=== PATIENT | male | born 1950 | race Caucasian/White ===

== ENCOUNTER → 2020-11-19 13:03 | Outpatient (BNVA) | payer MEDICARE, SELFPAY | PROVIDERS: PCP Internal Medicine; Visit Provider Anesthesiology | DX: G89.4 Chronic pain syndrome (principal); M51.36 Other intervertebral disc degeneration, lumbar region; M50.30 Other cervical disc degeneration, unspecified cervical region; M47.16 Other spondylosis with myelopathy, lumbar region | CPT/HCPCS: 99202 ==

== ENCOUNTER 2020-12-29 15:07 | Outpatient (REF) | payer MEDICARE, SELFPAY ==
--- NOTE | ~2020-12-29 | MR_ITS ---
EXAMINATION: MR LUMBAR SPINE WITHOUT CONTRAST CLINICAL INFORMATION: Spondylosis with myelopathy. COMPARISON: No relevant prior imaging. TECHNIQUE: MRI of the lumbar spine was obtained using routine sequences without contrast. FINDINGS: There is grade 1 anterolisthesis of L4 on L5 related to advanced facet degenerative changes at this level. Alignment is otherwise normal. Vertebral heights are preserved. There are minimal type I degenerative endplate changes at L1-L2 and to a lesser extent at the upper anterior corner of the L1 vertebral body. There is loss of intervertebral disc height and T2 signal intensity at multiple levels related to disc degeneration. The tip of the conus medullaris is located at L1. No mass effect on the conus. Visualized distal cord signal intensity is normal. At T12-L1 there is a shallow left central protrusion superimposed upon a bulging disc. Mild canal stenosis. No mass effect on the traversing or foraminal nerve roots. At L1-L2 there is a diffusely bulging disc. Mild canal stenosis. No mass effect on the traversing or foraminal nerve roots. At L2-L3 there is a slightly bulging disc. Bilateral facet degenerative change. No canal stenosis. No mass effect on the traversing or foraminal nerve roots. At L3-L4 there is a diffusely bulging disc. Bilateral facet degenerative change. No canal stenosis. No mass effect the traversing or foraminal nerve roots. At L4-L5 there is a central protrusion superimposed upon a pseudodisc bulge. Advanced bilateral facet degenerative change. No canal stenosis. There is asymmetric narrowing of the left subarticular zone with abutment of left traversing L5 nerve roots. No foraminal nerve root compression. At L5-S1 there is a slightly bulging disc. Advanced facet degenerative change. No canal stenosis. No mass effect on the traversing or foraminal nerve roots. Limited visualization the retroperitoneal anatomy reveals no abnormal finding. Psoas and paraspinal muscle groups are symmetric. MR/MR lumbar spine wo con IMPRESSION: There is multilevel degenerative spondylosis of lumbar spine with grade 1 anterolisthesis of L4 on L5 related to advanced facet degenerative changes at this level. There is mild canal stenosis at T12-L1 and L1-L2. Asymmetric narrowing of the left subarticular zone at L4-L5 causes abutment of the left traversing L5 nerve roots. Otherwise no substantial mass effect on the traversing or foraminal nerve roots elsewhere within the lumbar spine.
== END 2020-12-29 15:08 | disposition home or self-care (01) ==
LOC: HO.MRI 15:07
PROVIDERS: Visit Provider Anesthesiology
DX: M47.16 Other spondylosis with myelopathy, lumbar region (principal)
CPT/HCPCS: 72148

== ENCOUNTER → 2021-01-12 14:44 | Outpatient (BNVA) | payer MEDICARE, SELFPAY | PROVIDERS: Visit Provider Anesthesiology | DX: G89.4 Chronic pain syndrome (principal); M51.36 Other intervertebral disc degeneration, lumbar region; M50.30 Other cervical disc degeneration, unspecified cervical region; M48.16 Ankylosing hyperostosis [Forestier], lumbar region; Z79.899 Other long term (current) drug therapy | CPT/HCPCS: 99212 ==

== ENCOUNTER 2021-04-21 06:51 | Outpatient (REF) | payer MEDICARE, SELFPAY ==
--- NOTE | ~2021-04-21 | FL_ITS ---
EXAMINATION: XR FLUOROSCOPY WITH IMAGES CLINICAL INFORMATION: M47.16 - Other spondylosis with myelopathy, lumbar region COMPARISON: None. TECHNIQUE: Fluoroscopy performed by Dr. Rodrick Mckeon. Fluoroscopy time: 0.5 minutes DAP: 7.8 Gycm2 Images: 2 FINDINGS: There is interlaminar spinal needle approximately level L2-L3. There are multilevel degenerative disc changes with disc narrowing and vertebral spurring. FL/FL guidance in treatment room IMPRESSION: Fluoroscopy for pain management procedure.
== END 2021-04-21 06:52 | disposition home or self-care (01) ==
LOC: HO.RADIR 06:51
PROVIDERS: Visit Provider Anesthesiology
DX: G89.4 Chronic pain syndrome (principal); M51.36 Other intervertebral disc degeneration, lumbar region; M50.30 Other cervical disc degeneration, unspecified cervical region; M47.16 Other spondylosis with myelopathy, lumbar region
CPT/HCPCS: 62323; J1170; Q9967

== ENCOUNTER → 2021-04-29 09:37 | Outpatient (BNVA) | payer MEDICARE, SELFPAY | PROVIDERS: PCP Surgery Surgical Oncology; Visit Provider Anesthesiology | DX: M51.36 Other intervertebral disc degeneration, lumbar region (principal); M50.30 Other cervical disc degeneration, unspecified cervical region; M47.16 Other spondylosis with myelopathy, lumbar region; G89.4 Chronic pain syndrome | CPT/HCPCS: 99212 ==

== ENCOUNTER → 2021-05-18 11:24 | Outpatient (BNVA) | payer MEDICARE, SELFPAY | PROVIDERS: Visit Provider Anesthesiology | DX: M51.36 Other intervertebral disc degeneration, lumbar region (principal); M50.30 Other cervical disc degeneration, unspecified cervical region; M47.16 Other spondylosis with myelopathy, lumbar region; G89.4 Chronic pain syndrome | CPT/HCPCS: Q3014 ==

== ENCOUNTER 2021-07-01 14:59 | Outpatient (REF) | payer MEDICARE, SELFPAY ==
--- NOTE | ~2021-07-01 | XR_ITS ---
EXAMINATION: XR THORACIC SPINE CLINICAL INFORMATION: Spondylolisthesis. COMPARISON: None TECHNIQUE: 3 views of the thoracic spine were obtained. FINDINGS: Spinal stimulator wiring terminating at the region of T8. Vertebral body height and alignment maintained. Diffuse disc space narrowing with endplate osteophyte formation. There is anterior cervical fusion hardware at C5-C6. The visualized lungs are clear. The paravertebral soft tissues are unremarkable. XR/XR thoracic spine 3V IMPRESSION: Mild to moderate degenerative change throughout the thoracic spine with endplate osteophyte formation. Alignment maintained.
== END 2021-07-01 15:00 | disposition home or self-care (01) ==
LOC: HO.XRAY 14:59
PROVIDERS: PCP Surgery Surgical Oncology; Visit Provider Anesthesiology
DX: M43.10 Spondylolisthesis, site unspecified (principal); G89.4 Chronic pain syndrome; M51.36 Other intervertebral disc degeneration, lumbar region; M50.30 Other cervical disc degeneration, unspecified cervical region; M47.16 Other spondylosis with myelopathy, lumbar region; Z79.891 Long term (current) use of opiate analgesic
CPT/HCPCS: 72072; 99212

== ENCOUNTER 2021-07-16 12:04 | Day surgery (SDC) | payer MEDICARE, SELFPAY ==
--- NOTE | 2021-07-15 10:01 | HO.ANESPROP2 ---
Documented by User: Samantha Goldberg NP 07/15/21 10:02 HPI - Anesthesia Eval Consult details Narrative: 70yo M for Intrathecal Drug Delivery Implant PMFSH Active Problems Active Problems: All Active Problems (Updated 07/09/21 @ 12:54 by Ynes Guy RN) Retrolisthesis of vertebrae (Acute) Spondylosis, lumbar, with myelopathy (Acute) Degeneration, intervertebral disc, cervical (Acute) Disc degeneration, lumbar (Acute) Chronic pain syndrome (Acute) Past Medical History Medical History (Updated 07/09/21 @ 12:54 by Ynes Guy, [email or web address]) Chronic pain syndrome Degeneration, intervertebral disc, cervical Disc degeneration, lumbar GERD (gastroesophageal reflux disease) Hypercholesteremia Hypothyroid Obesity PTSD (post-traumatic stress disorder) Retrolisthesis of vertebrae Spondylosis, lumbar, with myelopathy Surgical History Surgical History (Updated 07/09/21 @ 12:54 by Ynes Guy RN) History of total left knee replacement S/P insertion of spinal cord stimulator Social History Social History Patient Tobacco Use Status: Never used Tobacco Use of substances other than those prescribed or required for medical reasons: Yes Have you been hit, kicked, punched, or otherwise hurt by someone within the past year? If so, by whom?: No Are you DNR?: No Advance Directives: No Advance Directives Information Provided: Yes Recently lost weight without trying: No Nutrition Risks: No Nutritional Risk Meds Allergies Allergy/AdvReac Type Severity Reaction Status Date / Time No Known Allergies Allergy Verified 07/09/21 13:05 Home Medications Medication Instructions Recorded Confirmed Last Taken Type levothyroxine 07/09/21 Unknown History omeprazole 07/09/21 Unknown History paroxetine HCl 07/09/21 Unknown History simvastatin 07/09/21 Unknown History zolpidem 07/09/21 07/09/21 Unknown History Exam Exam Date and Time: July 15, 2021 1001 Assessment and Plan Assessment Anesthesia Assessment: Chart Reviewed Documented by User: Tigre Lara 07/16/21 12:49 HPI - Anesthesia Eval Consult details Narrative: 70yo M for Intrathecal Drug Delivery Implant s/p Spinal cord stimulator in 2018 [facility] Past Medical History Medical History (Updated 07/09/21 @ 12:54 by Ynes Guy, RN) Chronic pain syndrome Degeneration, intervertebral disc, cervical Disc degeneration, lumbar GERD (gastroesophageal reflux disease) Hypercholesteremia Hypothyroid Obesity PTSD (post-traumatic stress disorder) Retrolisthesis of vertebrae Spondylosis, lumbar, with myelopathy Functional capacity: uses cane/walker Family History Family history of problems with anesthesia: No Surgical History Surgical History (Updated 07/09/21 @ 12:54 by Ynes Guy RN) History of total left knee replacement S/P insertion of spinal cord stimulator History of Problems with Anesthesia: Yes (Ponv ) Social History Social History Patient Tobacco Use Status: Never used Tobacco Use of substances other than those prescribed or required for medical reasons: Yes Have you been hit, kicked, punched, or otherwise hurt by someone within the past year? If so, by whom?: No Are you DNR?: No Advance Directives: No Advance Directives Information Provided: Yes Recently lost weight without trying: No Nutrition Risks: No Nutritional Risk Meds Allergies Allergy/AdvReac Type Severity Reaction Status Date / Time No Known Allergies Allergy Verified 07/09/21 13:05 Home Medications Medication Instructions Recorded Confirmed Last Taken Type levothyroxine 07/09/21 Unknown History omeprazole 07/09/21 Unknown History paroxetine HCl 07/09/21 Unknown History simvastatin 07/09/21 Unknown History zolpidem 07/09/21 07/09/21 Unknown History Exam Airway Mallampati Class: III TM Dist: >3cm Neck ROM: Limited Denture: Upper Loose/Missing/Broken Teeth: Yes Assessment and Plan Final Anesthetic Review Family History of Problems with Anesthesia: No History of Problems with Anesthesia: Yes (Ponv ) NPO: Yes ASA Class: II Final Preanesthetic Review: Anes Risks/Benef Reviewed Patient Risk: Intermediate Procedure Risk: Intermediate Anesthetic Plan Anesthetic Plan: GA Disposition: Standard PACU
--- NOTE | ~2021-07-16 | FL_ITS ---
EXAMINATION: XR FLUOROSCOPY WITH IMAGES CLINICAL INFORMATION: intrathecal drug delivery implant COMPARISON: Fluoroscopic spot views 04/21/2021, MRI lumbar spine 12/29/2020 TECHNIQUE: Fluoroscopy performed by Dr. Rodrick Mckeon. Fluoroscopy time: 0.5 minutes DAP: 7.92 mGycm2 Images: 7 FINDINGS: There is puncture needle seen overlying L2 lumbar interlaminar space. Electrodes seen with tip in region of lower thoracic spine. There are fine grouped wire-like artifacts overlying the lower lumbar spine on final images which may represent gauze pads outside of the patient. FL/FL guidance in OR IMPRESSION: Fluoroscopy for pain management procedure.
[2021-07-16 12:24] VITALS: BP 118/74; PULSE 74; RESP 18; TEMP 36.8; O2SAT 96
--- NOTE | 2021-07-16 12:59 | MHC.SHP ---
Pre-Procedural Eval Section A Date of Service: 07/16/21 The patient is an INPATIENT: No Changes since office visit: Yes Patient answered all questions The History & Physical has been completed within 30 days and I have reviewed it.: No Section B Chief Complaint: Post laminectomy syndrome Details of Present Illness: as above Relevant Family History (Specify if Yes): No Relevant Social History: None Present Medications: see Short Stay Collaborative assessment Medical History: No relevant PMH History of Previous Operations: No relevant previous surgery Allergies: Allergies Allergy/AdvReac Type Severity Reaction Status Date / Time No Known Allergies Allergy Verified 07/09/21 13:05 Review of Systems Sugical H&P ROS: Negative: Cardiovascular, Respiratory, Neurological, Psychiatric, Hem-Onc, Allergic/Immunologic, Gastrointestinal, Genitourinary, Musculoskeletal, Integumentary, Endocrine and Eyes/Ears/Nose/Throat and Yes, Specify: Constitution (obesity) Exam Surgical H&P Exam: Normal: HEENT, Normal: Heart, Normal: Lungs, Normal: Extremities, Normal: Abdomen, Normal: Skin and Normal: Neurological Plan Diagnosis/Plan: Unchanged I have reviewed the history and physical and performed a pertinent physical examination on my patient. No changes have occurred unless specified.
[2021-07-16] MEDS: Lactated Ringers 1,000 ML 100 ML IVCONT (13:13)
--- NOTE | 2021-07-16 16:13 | PM.OP ---
Brief Operative Note Date of Service: 07/16/21 Pre-op diagnosis: postlaminectomy syndrome Post-op diagnosis: same Procedure: Implantation of the ITDD [employer] Implants: [employer] pain pump Synchromed II and IT catheter ascenda. Surgeon: Rodrick Mckeon MD Anesthesia: GETA Was an Windows And Doors Installer used for this Procedure?: No Estimated blood loss (mL): 25 Pathology: none sent Condition: stable Disposition: PACU
--- NOTE | 2021-07-16 16:15 | P.OP_ITS ---
Operative Note Operative Note Date of Service: 07/16/21 Narrative: After obtaining informed consent and explaining to the patient risks, benefits and alternatives to treat his pain, the patient was brought up to the operating room where he was positioned supine on the stretcher.? [employer] monitors were applied and general anesthesia was induced with endotracheal intubation.? After that the patient was transferred to the operating table in the prone positioon.? All pressure points protected.? The patient received antibiotic cefazolin 3 g intravenously 30 minutes before incision. Time-out was performed delineating correct site and side of the procedure, name and date of of the patient, risk of fire, need for antibiotic prophylaxis risk of DVT and need for DVT prophylaxis. ? After that the patient entire back? and left upper buttock were prepped with Chloraprep and draped with full body drape including ioban film. Sterilely drape C-arm was brought over the OR field and square pictures of the L1, L2, L3 vertebrae were demonstrated on the screen. the entrance point? for the catheter was chosen as the L1-[id number]. In the strict midline fashion 8.5 cm vertical skin incision was made with #10 scalpel. The incision was widened with the Philipptl aner retractor and deepened with electrocautery. Thorough hemostasis was obtained using electrocautery.0 The prevertebral fascia was freed from overlaying tissues. After that 100 mm introducer spinal 16 g needle was inserted under x-ray guidance in the projection of the right L3 pedicle on AP view. The needle advanced under the x- ray guidance with intemittent A-P? and lateral pictures toward the spinal canal. When on the lateral view the needle entered the spinal canal the stylet was removed and the clear flow of the CSF was obtain through the needle hub. Intrathecal Ascenda catheter was inserted through the needle and advanced under the x-ray guidance toward the T7 mid body vertebral body projection. The stylet was removed from the catheter and the flow of CSF fluid straw colored and clear was observed coming from the catheter.? Purse-string suture was applied surrounding? the a needle and it was tied.? After that the needle was withdrawn with care taken to keep the catheter in place.? Anchoring device was dislodged on the catheter and advanced until it met prevertebral fascia.? It was engaged on the body of the catheter.? Two anchoring Tycron sutures were used to suture left wing of the anchor to prevertebral fascia and 1 anchoring suture was used to stitch in the right wing of anchoring device to prevertebral fascia. ?After that the thorough irrigation of the wound was performed and wound was packed with vancomycin soaked 4 x 4. Attention then was concentrated on the patient's left upper buttock.Sterilely draped C-arm was brought over the operative field again and position of the patient's ? Left iliac crestwas demonstrated on the screen.? 2 cm below the projection of the? left iliac crest? to the skin of the local anesthetic lidocaine plus bupivacaine 1-1 was injected in the linear horizontal fashion.? After that 9 cm incision was performed in patient's? left upper buttock alongside the injected line. ? Thorough hemostasis was obtained using cautery device.? After that the wound was widened and made 2 cm deep .? The wound was extended medially and laterally as well as caudally and cranially to form the space to accommodate the body of the pump.? Thorough hemostasis was performed.? The wound was irrigated with vancomycin containing normal saline and then tunneling device was used to connect both wounds and dislodged the intrathecal catheter into the side wound.? The catheter was trimmed appropriately after that and sutureless connection device was mounted on the catheter.? After that sutureless connection device was connected to the pump.? Aspiration of the side port of the pump revealed clear flow of CSF.? Two anchoring 1-0 Tycron sutures were applied in most SUPERIOR MEDIAL AND SUPERIOR LATERAL CORNERS OF THE WOUND as well as most inferior medial corner of the wound.? After that the sutures were connected to the brackets on the body of the pump, intrathecal catheter was gathered behind the body of the pump and pump was dislodged into the wound.? After that the anchoring sutures were tied.? After that noncoring needle was used again to reach side port of the pump in clear flow of CSF 0.5 mL was demonstrated in the syringe connected to the noncoring needle. ? Thorough irrigation was performed again in both wounds.? Thorough hemostasis was verified.? 0 polisorb sutures were used to close both wounds, 2-0 suture of the same nature were used to approximate the skin.? Aviva were applied to the skin line and Bacitracin ointment was applied to the staple lines.? Sterile dressing with sterile 4x4s was performed, abdominal binder was applied.? Upon completion of the procedure patient was awaken extubated and taken outside of the operating room to recovery room where HE recovered uneventfully.? HE went home without immediate complications.
[2021-07-16 16:18] VITALS: BP 135/66; PULSE 84; RESP 18; TEMP 36.1; O2SAT 99
[2021-07-16 16:23] VITALS: BP 129/63; PULSE 88; RESP 18; O2SAT 100
[2021-07-16 16:28] VITALS: BP 133/70; PULSE 85; RESP 18; O2SAT 96
[2021-07-16 16:33] VITALS: BP 132/70; PULSE 84; RESP 20; O2SAT 99
[2021-07-16 16:45] VITALS: BP 131/72; PULSE 79; RESP 20; O2SAT 99
== END 2021-07-16 17:19 | disposition home or self-care (01) ==
PROVIDERS: PCP Surgery Surgical Oncology; Visit Provider Anesthesiology
PROC: (CPT 62362; principal; 2021-07-16 13:00)
DX: M43.10 Spondylolisthesis, site unspecified (principal); G89.4 Chronic pain syndrome; M96.1 Postlaminectomy syndrome, not elsewhere classified; M51.36 Other intervertebral disc degeneration, lumbar region; M50.30 Other cervical disc degeneration, unspecified cervical region; M47.16 Other spondylosis with myelopathy, lumbar region
CPT/HCPCS: 62362; 62350; C1755; C1772; J0690; J1100; J2250; J2405; J3010; J3370

== ENCOUNTER → 2021-07-23 10:16 | Outpatient (BNVA) | payer MEDICARE, SELFPAY | PROVIDERS: PCP Surgery Surgical Oncology; Visit Provider Anesthesiology | DX: M43.10 Spondylolisthesis, site unspecified (principal); M51.36 Other intervertebral disc degeneration, lumbar region; M50.30 Other cervical disc degeneration, unspecified cervical region; M47.16 Other spondylosis with myelopathy, lumbar region; G89.4 Chronic pain syndrome; Z96.82 Presence of neurostimulator | CPT/HCPCS: 99212 ==

== ENCOUNTER → 2021-07-29 14:04 | Outpatient (BNVA) | payer MEDICARE, SELFPAY | PROVIDERS: PCP Surgery Surgical Oncology; Visit Provider Anesthesiology | DX: M43.10 Spondylolisthesis, site unspecified (principal); M51.36 Other intervertebral disc degeneration, lumbar region; M50.30 Other cervical disc degeneration, unspecified cervical region; M47.16 Other spondylosis with myelopathy, lumbar region; G89.4 Chronic pain syndrome | CPT/HCPCS: 99212 ==

== ENCOUNTER → 2021-08-05 15:06 | Outpatient (BNVA) | payer MEDICARE, SELFPAY | PROVIDERS: PCP Surgery Surgical Oncology; Visit Provider Anesthesiology | DX: Z48.89 Encounter for other specified surgical aftercare (principal); Z48.02 Encounter for removal of sutures | CPT/HCPCS: 99212 ==

== ENCOUNTER 2021-08-19 13:00 | Outpatient (REF) | payer OTHER, MEDICARE, SELFPAY ==
--- NOTE | ~2021-08-19 | MR_ITS ---
CERVICAL AND THORACIC SPINE MRI WITHOUT IV CONTRAST CLINICAL INFORMATION: History of surgery with cervicothoracic pain. COMPARISON: Thoracic spine radiographs 07/01/2021. TECHNIQUE: Multiplanar multisequence MR imaging of the cervical and thoracic spine obtained without IV contrast. FINDINGS: CERVICAL SPINE MRI: There are postoperative changes following ACDF at C5-C6. There is anterior subluxation of C3 on C4 and C4 on C5 as well as C7 on T1. Mild disc volume loss at C6-C7 and C7-T1. There is no bone marrow edema. There are no acute fractures within the cervical spine. The craniocervical junction is unremarkable. Cervical cord morphology is normal. Partially imaged posterior fossa is unremarkable. The cervical arterial flow voids are maintained. No significant extraspinal soft tissue findings. No cord signal changes. C2-C3: Disc contour is normal. Uncovertebral joint spurring and hypertrophic facet arthropathy result in mild left-sided foraminal encroachment. C3-C4: Mild anterior subluxation. Disc osteophyte without central canal stenosis. Uncovertebral joint hypertrophy and hypertrophic facet arthropathy result in mild to moderate bilateral foraminal stenosis. C4-C5: Disc osteophyte mildly narrows the central canal. Uncovertebral joint hypertrophy and hypertrophic facet arthropathy result in severe right-sided foraminal stenosis. C5-C6: ACDF changes. No central canal stenosis. Advanced left-sided facet arthropathy results in moderate left-sided foraminal encroachment. C6-C7: A shallow central disc protrusion and ligamentum flavum thickening mildly narrow the central canal. Advanced uncovertebral joint hypertrophy and hypertrophic facet arthropathy result in moderate bilateral foraminal stenosis. C7-T1: Anterior subluxation. No central canal stenosis. Advanced bilateral facet arthropathy resulting in moderate to severe bilateral foraminal stenosis. THORACIC SPINE: Vertebral body heights are maintained. Mild to moderate disc volume loss at the mid thoracic levels. Modic type I endplate signal changes at L1-L2 and to a lesser extent T10-T11. Attic endplate Schmorl's nodes within the mid thoracic spine. There is significant marrow edema associated with the right sixth costovertebral joint, most likely degenerative/inflammatory. There is any clinical concern for trauma to this area, a CT can be obtained. Multilevel endplate osteophytes. Nondiagnostic assessment for thoracic cord signal abnormality given the degree of significant artifact obscuring the thoracic spine, particularly at the level of the spinal stimulator device. Surgical hardware not diagnostically assessed on MRI. No significant extraspinal soft tissue findings. Small paracentral disc protrusions throughout the thoracic spine highly narrow the central canal. No severe central canal stenosis within the thoracic spine. Varying degrees of mild to moderate foraminal encroachment throughout the thoracic spine. Conus terminates at the T12-L1 level. THORACIC SPINE MRI: Midthoracic kyphosis. 12 rib-bearing thoracic type vertebral bodies. Spinal stimulator device extends through the T9-T10 interlaminar space with the electrode situated along the dorsal thecal sac at T8-T10. MR/MR thoracic spine wo con IMPRESSION: - Within the cervical spine there are postoperative changes following ACDF at C5-C6. Spondylitic changes throughout the cervical spine resulting in varying degrees of moderate to severe foraminal stenosis bilaterally. There is no severe central canal stenosis within the cervical spine. - Spinal stimulator device extends through the T9-T10 interlaminar space with the electrode situated along the dorsal thecal sac at T8-T10. - There is significant marrow edema associated with the right sixth costovertebral joint, most likely degenerative/inflammatory. There is any clinical concern for trauma to this area, a CT can be obtained. - Multilevel thoracic spondylosis. Nondiagnostic assessment for thoracic cord signal abnormality secondary to artifact on this study. There is mild to moderate thoracic spondylosis and there is a midthoracic kyphosis. No severe central canal stenosis within the thoracic spine. No thoracic cord compression. Assessment of the thoracic cord at the level of the spinal stimulator electrode is nondiagnostic secondary to artifact from electrode.
== END 2021-08-19 13:01 | disposition home or self-care (01) ==
LOC: HO.MRI 13:00
PROVIDERS: Visit Provider Nurse Practitioner Family
DX: M43.10 Spondylolisthesis, site unspecified (principal); G89.4 Chronic pain syndrome; M51.36 Other intervertebral disc degeneration, lumbar region; M50.30 Other cervical disc degeneration, unspecified cervical region; M47.16 Other spondylosis with myelopathy, lumbar region
CPT/HCPCS: 72141; 72146; 99212

== ENCOUNTER → 2021-09-09 15:39 | Outpatient (BNVA) | payer MEDICARE, SELFPAY | PROVIDERS: PCP Surgery Surgical Oncology; Visit Provider Anesthesiology | DX: G89.4 Chronic pain syndrome (principal); M43.10 Spondylolisthesis, site unspecified; M51.36 Other intervertebral disc degeneration, lumbar region; M50.30 Other cervical disc degeneration, unspecified cervical region; M47.16 Other spondylosis with myelopathy, lumbar region; Z97.8 Presence of other specified devices | CPT/HCPCS: 99212 ==

== ENCOUNTER 2021-09-29 06:08 | Outpatient (REF) | payer MEDICARE, SELFPAY ==
--- NOTE | ~2021-09-29 | FL_ITS ---
EXAMINATION: XR FLUOROSCOPY WITH IMAGES CLINICAL INFORMATION: Chronic pain syndrome. COMPARISON: None. TECHNIQUE: Fluoroscopy performed by Dr. Mckeon.. Fluoroscopy time: 0 minutes DAP: 2 Gycm2 Images: 1 FINDINGS: A single image demonstrates a battery pack superimposed over the right abdomen and pelvis. FL/FL guidance in treatment room IMPRESSION: Fluoroscopy provided during placement.
== END 2021-09-29 06:09 | disposition home or self-care (01) ==
LOC: HO.RADIR 06:08
PROVIDERS: Visit Provider Anesthesiology
DX: G89.4 Chronic pain syndrome (principal); M43.10 Spondylolisthesis, site unspecified; M51.36 Other intervertebral disc degeneration, lumbar region; M47.16 Other spondylosis with myelopathy, lumbar region; M50.30 Other cervical disc degeneration, unspecified cervical region
CPT/HCPCS: 62370

== ENCOUNTER 2021-11-03 06:12 | Outpatient (REF) | payer MEDICARE, SELFPAY | END 2021-11-03 06:13 | disposition home or self-care (01) | LOC: HO.RADIR 06:12 | PROVIDERS: Visit Provider Anesthesiology | DX: M43.10 Spondylolisthesis, site unspecified (principal); M51.36 Other intervertebral disc degeneration, lumbar region; M50.30 Other cervical disc degeneration, unspecified cervical region; M47.16 Other spondylosis with myelopathy, lumbar region; G89.4 Chronic pain syndrome | CPT/HCPCS: 62370 ==

== ENCOUNTER 2021-12-16 06:02 | Outpatient (REF) | payer MEDICARE, SELFPAY | END 2021-12-16 06:03 | disposition home or self-care (01) | LOC: HO.RADIR 06:02 | PROVIDERS: Visit Provider Internal Medicine | DX: Z13.89 Encounter for screening for other disorder (principal) ==

== ENCOUNTER → 2021-12-17 13:29 | Outpatient (BNVA) | payer MEDICARE, SELFPAY | PROVIDERS: PCP Surgery Surgical Oncology; Visit Provider Internal Medicine | DX: G89.4 Chronic pain syndrome (principal); Z97.8 Presence of other specified devices | CPT/HCPCS: 62370 ==

== ENCOUNTER → 2022-02-01 09:30 | Outpatient (BNVA) | payer MEDICARE, SELFPAY | PROVIDERS: PCP Surgery Surgical Oncology; Visit Provider Anesthesiology | DX: G89.4 Chronic pain syndrome (principal); M47.16 Other spondylosis with myelopathy, lumbar region; M51.36 Other intervertebral disc degeneration, lumbar region; M50.30 Other cervical disc degeneration, unspecified cervical region | CPT/HCPCS: 62370; 99212 ==

== ENCOUNTER → 2022-02-15 11:24 | Outpatient (BNVA) | payer MEDICARE, SELFPAY | PROVIDERS: PCP Surgery Surgical Oncology; Visit Provider Anesthesiology | DX: G89.4 Chronic pain syndrome (principal); M43.10 Spondylolisthesis, site unspecified; M51.36 Other intervertebral disc degeneration, lumbar region; M50.30 Other cervical disc degeneration, unspecified cervical region; M47.16 Other spondylosis with myelopathy, lumbar region | CPT/HCPCS: 99212 ==

== ENCOUNTER → 2022-03-17 14:05 | Outpatient (BNVA) | payer MEDICARE, SELFPAY | PROVIDERS: PCP Surgery Surgical Oncology; Visit Provider Anesthesiology | DX: M43.10 Spondylolisthesis, site unspecified (principal); G89.4 Chronic pain syndrome; M51.36 Other intervertebral disc degeneration, lumbar region; M50.30 Other cervical disc degeneration, unspecified cervical region; M47.16 Other spondylosis with myelopathy, lumbar region | CPT/HCPCS: 99212 ==

== ENCOUNTER → 2022-03-31 16:37 | Outpatient (BNVA) | payer MEDICARE, SELFPAY | PROVIDERS: PCP Surgery Surgical Oncology; Visit Provider Anesthesiology | DX: G89.4 Chronic pain syndrome (principal); M43.10 Spondylolisthesis, site unspecified; M51.36 Other intervertebral disc degeneration, lumbar region; M50.30 Other cervical disc degeneration, unspecified cervical region; M47.16 Other spondylosis with myelopathy, lumbar region | CPT/HCPCS: 99212 ==

== ENCOUNTER → 2022-04-26 14:34 | Outpatient (BNVA) | payer MEDICARE, SELFPAY | PROVIDERS: PCP Surgery Surgical Oncology; Visit Provider Anesthesiology | DX: G89.4 Chronic pain syndrome (principal); M43.10 Spondylolisthesis, site unspecified; M51.36 Other intervertebral disc degeneration, lumbar region; M50.30 Other cervical disc degeneration, unspecified cervical region; M47.16 Other spondylosis with myelopathy, lumbar region | CPT/HCPCS: 62370; 99212 ==

== ENCOUNTER → 2022-05-31 15:08 | Outpatient (BNVA) | payer MEDICARE, SELFPAY | PROVIDERS: PCP Surgery Surgical Oncology; Visit Provider Anesthesiology | DX: Z45.89 Encounter for adjustment and management of other implanted devices (principal); M43.10 Spondylolisthesis, site unspecified; M51.36 Other intervertebral disc degeneration, lumbar region; M50.30 Other cervical disc degeneration, unspecified cervical region; M47.16 Other spondylosis with myelopathy, lumbar region; G89.4 Chronic pain syndrome | CPT/HCPCS: 62370 ==

== ENCOUNTER → 2022-07-05 14:39 | Outpatient (BNVA) | payer MEDICARE, SELFPAY | PROVIDERS: PCP Surgery Surgical Oncology; Visit Provider Anesthesiology | DX: M43.10 Spondylolisthesis, site unspecified (principal); G89.4 Chronic pain syndrome; M51.36 Other intervertebral disc degeneration, lumbar region; M50.30 Other cervical disc degeneration, unspecified cervical region; M47.16 Other spondylosis with myelopathy, lumbar region; Z96.82 Presence of neurostimulator; Z96.652 Presence of left artificial knee joint | CPT/HCPCS: 62370; 99212 ==

== ENCOUNTER → 2022-08-23 14:58 | Outpatient (BNVA) | payer MEDICARE, SELFPAY | PROVIDERS: PCP Surgery Surgical Oncology; Visit Provider Anesthesiology | DX: M43.10 Spondylolisthesis, site unspecified (principal); M51.36 Other intervertebral disc degeneration, lumbar region; M50.30 Other cervical disc degeneration, unspecified cervical region; M47.16 Other spondylosis with myelopathy, lumbar region; G89.4 Chronic pain syndrome; Z97.8 Presence of other specified devices | CPT/HCPCS: 99212 ==

== ENCOUNTER → 2022-10-06 14:52 | Outpatient (BNVA) | payer MEDICARE, SELFPAY | PROVIDERS: PCP Surgery Surgical Oncology; Visit Provider Anesthesiology | DX: M47.16 Other spondylosis with myelopathy, lumbar region (principal); G89.4 Chronic pain syndrome; M51.36 Other intervertebral disc degeneration, lumbar region; M50.30 Other cervical disc degeneration, unspecified cervical region; M62.830 Muscle spasm of back; Z96.82 Presence of neurostimulator | CPT/HCPCS: 62370; 99212 ==

== ENCOUNTER → 2022-11-10 13:49 | Outpatient (BNVA) | payer MEDICARE, SELFPAY | PROVIDERS: PCP Surgery Surgical Oncology; Visit Provider Anesthesiology | DX: G89.4 Chronic pain syndrome (principal); M47.16 Other spondylosis with myelopathy, lumbar region; M51.06 Intervertebral disc disorders with myelopathy, lumbar region; M50.30 Other cervical disc degeneration, unspecified cervical region; Z96.82 Presence of neurostimulator | CPT/HCPCS: 62370 ==

== ENCOUNTER → 2022-12-01 15:26 | Outpatient (BNVA) | payer MEDICARE, SELFPAY | PROVIDERS: PCP Surgery Surgical Oncology; Visit Provider Anesthesiology | DX: M43.10 Spondylolisthesis, site unspecified (principal); M51.36 Other intervertebral disc degeneration, lumbar region; M50.30 Other cervical disc degeneration, unspecified cervical region; M47.16 Other spondylosis with myelopathy, lumbar region; G89.4 Chronic pain syndrome | CPT/HCPCS: 99212 ==

== ENCOUNTER → 2022-12-22 13:57 | Outpatient (BNVA) | payer MEDICARE, SELFPAY | PROVIDERS: PCP Surgery Surgical Oncology; Visit Provider Anesthesiology | DX: Z45.1 Encounter for adjustment and management of infusion pump (principal); G89.4 Chronic pain syndrome; M43.10 Spondylolisthesis, site unspecified; M51.36 Other intervertebral disc degeneration, lumbar region; M50.30 Other cervical disc degeneration, unspecified cervical region; M47.816 Spondylosis without myelopathy or radiculopathy, lumbar region | CPT/HCPCS: 62370; 99212 ==

== ENCOUNTER 2023-02-02 14:08 | Outpatient (AMB) | payer MEDICARE, SELFPAY ==
--- NOTE | 2023-02-02 14:09 | MHC.OFFVIS ---
Intake Vital Signs 02/02/23 14:20 Height 5 ft 9 in Weight 209 lb BMI 30.9 BP 138/73 Blood Pressure Location Rt brachial Position Sitting Respiration 16 Pulse 100 Pulse Source Pulse Oximeter Pulse Oximetry (%) 95 Oxygen Delivery Method Room Air Intake Visit Reasons: ITDD Refill Intake Note: patient comes in for pain pump refill. Allergies No Known Allergies Allergy (Verified 02/02/23 14:20) HPI HPI Comments History of Present Illness Details El is in my office for intrathecal pain pump medication refill. Last time when he came for the pump refill he -reported a fall and trauma of the left chest and left hand, he reported severe pain secondary to multiple rib fractures on the left. I schedule him to perform intercostal injections rib 7 possibly rib 6 possibly rib 8 possibly rib 9. Unfortunately he did not attend that injection. He wanted ?everything to get its own course ?. Unfortunately I could only read that he did not go for those injections. He is here today for the pump refill and refill is as below. His next appointment will be in the beginning of March [facility] Medical History (Updated 12/23/22 @ 09:25 by Myranda Olivarez APRN, [employer] PLACING SUPERVISOR) Chronic pain syndrome Degeneration, intervertebral disc, cervical Disc degeneration, lumbar GERD (gastroesophageal reflux disease) Hypercholesteremia Hypothyroid Obesity PTSD (post-traumatic stress disorder) Retrolisthesis of vertebrae Spondylosis, lumbar, with myelopathy Surgical History (Updated 07/09/21 @ 12:54 by Ynes Guy RN) History of total left knee replacement S/P insertion of spinal cord stimulator Social History Patient Tobacco Use Status: Never used Tobacco Review of Systems Const All systems reviewed & are unremarkable except as noted in HPI and below Physical Exam Vital Signs: Last Vital Signs Pulse 100 02/02/23 14:20 Resp 16 02/02/23 14:20 BP 138/73 02/02/23 14:20 Pulse Ox 95 02/02/23 14:20 Oxygen Delivery Method Room Air 02/02/23 14:20 BMI result Body Mass Index 30.9 Const General: comfortable, no acute distress, well developed, alert and awake Eyes Pupils: Equal, round and reactive pupils present EOM: EOMs intact bilaterally Chest Other: Severe tenderness on palpation in the projection of the 7 rib on the left. Also tenderness of palpation of approximately 8 and 6 rib. Chest palpation & inspection: other (Severe tenderness on palpation on the left sided chest. Mostly in the proj) Resp Effort & Inspection: normal respiratory effort, able to speak in complete sentences, normal respiratory pattern, no audible wheezes and no cough Cardio Jugular venous distension: no JVD Back/Spine/Pelvis Other: tenderness on palpation in paraspinal spinal region in lumbar spine. Loading test is positive. Range of motion in lumbar spine is severely compromised. John test is negative bilaterally the pain he reports on John test performance is related to the hip area and not the posterior area and not the back. Gaenslen is negative pelvic destruction test is negative for sacroiliac joint pain. He has antalgic gait mostly for the left lower extremity. He is using cane for ambulation. He has midline lower thoracic spine incision and left upper buttock incision accommodating the SCS device. The incisions are very well-healed.. Neuro Cranial nerves: Yes Equal, round and reactive pupils present Psych Speech and movement: Normal speech and movement present Affect: normal affect Attitude: cooperative Assessment & Plan Assessment & Plan (1) Retrolisthesis of vertebrae: Code(s): M43.10 - Spondylolisthesis, site unspecified (2) Chronic pain syndrome: Code(s): G89.4 - Chronic pain syndrome (3) Disc degeneration, lumbar: Code(s): M51.36 - Other intervertebral disc degeneration, lumbar region (4) Degeneration, intervertebral disc, cervical: Code(s): M50.30 - Other cervical disc degeneration, unspecified cervical region (5) Spondylosis, lumbar, with myelopathy: Code(s): M47.16 - Other spondylosis with myelopathy, lumbar region Plan: He recently went for total knee replacement. He recently had trauma of the chest. He was offered intercostal injections but he did not come for his appointment. He uses less than a half of his medication in the pump. He keeps forgetting to press the button on the pump. Somehow I believe that he is more comfortable with his axial pain than he wishes to report. In any way the pump was refilled today as below. His next appointment is in the beginning of March. Plan Intrathecal pump refill. ? THE PATIENT CAME TODAY IN office FOR THE CHANGE OF THE MEDICATION IN his PAIN PUMP. The name and date of were verified and informed consent was obtained for the procedure. ? ?The pump was interrogated and the residual amount of fluid was found to be 11.1 mL. HE WAS POSITIONED prone on the bed AND THE AREA OF THE INTRATHECAL PUMP WAS PREPPED WITH CHLORAPREP. The fenestrated drape was sterilely applied over the area of the pump. Sterile gloves were worn and of the aspiration system was assembled containing 2 in 22 gauge noncoring needle, the needle was connected to extension tubing which was connected to the 20 cc sterile syringe. The pain pump was palpated under the skin in the patient's right buttock area. The needle was inserted through the skin and the central plug of the pain pump and fluid was aspirated. The clear fluid was going into the syringe the total amount of the fluid was 11.0 mL .. After that a new batch? of medication was obtained which was containing Dilaudid 1500mcg and Bupivacain 16 mg per ml. The admixture was made in 20 cc syringe prepared by [facility] compounding pharmacy. The syringe was connected to the bacterial filter, and then connected to the extension tubing. After that the medication in the syringe was slowly instilled into the pump with aspirations at 15 and 5 cc gibbs.? The pump was left as previously for with simple continuous infusion on the hydromorphone 230 mcg a day on after 33 hours of bridge bolus he will be able to administer himself on PTM 90 micro g of Dilaudid every 4 hours 4 times a day. Coding Level of Care Code Est Pt Level 3 (02484) Procedure Only Diagnoses Retrolisthesis of vertebrae M43.10 Chronic pain syndrome G89.4 Disc degeneration, lumbar M51.36 Degeneration, intervertebral disc, cervical M50.30 Spondylosis, lumbar, with myelopathy M47.16
[2023-02-02 14:20] VITALS: BP 138/73; PULSE 100; RESP 16; O2SAT 95; BMI 30.9
== END 2023-02-02 14:40 | disposition home or self-care (01) ==
PROVIDERS: PCP Surgery Surgical Oncology; Visit Provider Anesthesiology
DX: M43.10 Spondylolisthesis, site unspecified (principal); G89.4 Chronic pain syndrome; M51.36 Other intervertebral disc degeneration, lumbar region; Z45.1 Encounter for adjustment and management of infusion pump; M50.30 Other cervical disc degeneration, unspecified cervical region; M47.16 Other spondylosis with myelopathy, lumbar region
CPT/HCPCS: 62370

== ENCOUNTER → 2023-02-02 14:08 | Outpatient (BNVA) | payer MEDICARE, SELFPAY | PROVIDERS: PCP Surgery Surgical Oncology; Visit Provider Anesthesiology | DX: Z45.1 Encounter for adjustment and management of infusion pump (principal); M50.30 Other cervical disc degeneration, unspecified cervical region; M51.36 Other intervertebral disc degeneration, lumbar region; M47.16 Other spondylosis with myelopathy, lumbar region; M43.15 Spondylolisthesis, thoracolumbar region; G89.4 Chronic pain syndrome; Z96.82 Presence of neurostimulator | CPT/HCPCS: 62370 ==

== ENCOUNTER 2023-03-30 13:43 | Outpatient (AMB) | payer MEDICARE, SELFPAY ==
--- NOTE | 2023-03-30 13:45 | A.OFFVIS_ITS ---
Intake Vital Signs 03/30/23 13:55 Height 5 ft 9 in Weight 203 lb BMI 30.0 BP 138/80 Blood Pressure Location Lt brachial Position Sitting Respiration 16 Pulse 100 Pulse Source Pulse Oximeter Pulse Oximetry (%) 97 Oxygen Delivery Method Room Air Intake Visit Reasons: ITDD Refill Intake Note: patient comes in for pain pump medication refill. Allergies No Known Allergies Allergy (Verified 03/30/23 13:55) HPI HPI Comments History of Present Illness Details El is in my office for intrathecal pain pump medication refill. He continues to endorse her spasticity and spastic pain in the lower back with radiation into the mid back and bilateral flank small on the left and less on the right. Previously we were hesitant to start him on baclofen in his pump, he reported that he completed physical therapy for his total knee replacement and now we can start him on baclofen. Pump refill today see as below. [facility] Medical History (Updated 12/23/22 @ 09:25 by Myranda Olivarez APRN, STARCH TREATING ASSISTANT) Obesity PTSD (post-traumatic stress disorder) GERD (gastroesophageal reflux disease) Hypercholesteremia Hypothyroid Retrolisthesis of vertebrae Spondylosis, lumbar, with myelopathy Degeneration, intervertebral disc, cervical Disc degeneration, lumbar Chronic pain syndrome Surgical History (Updated 07/09/21 @ 12:54 by Ynes Guy RN) S/P insertion of spinal cord stimulator History of total left knee replacement Social History Patient Tobacco Use Status: Never used Tobacco Review of Systems Const All systems reviewed & are unremarkable except as noted in HPI and below Physical Exam Vital Signs: Last Vital Signs Pulse 100 03/30/23 13:55 Resp 16 03/30/23 13:55 BP 138/80 03/30/23 13:55 Pulse Ox 97 03/30/23 13:55 Oxygen Delivery Method Room Air 03/30/23 13:55 BMI result Body Mass Index 30.0 Const General: comfortable, no acute distress, well developed, alert and awake Eyes Pupils: Equal, round and reactive pupils present EOM: EOMs intact bilaterally Chest Other: Severe tenderness on palpation in the projection of the 7 rib on the left. Also tenderness of palpation of approximately 8 and 6 rib. Chest palpation & inspection: other (Severe tenderness on palpation on the left sided chest. Mostly in the proj) Resp Effort & Inspection: normal respiratory effort, able to speak in complete sentences, normal respiratory pattern, no audible wheezes and no cough Cardio Jugular venous distension: no JVD Back/Spine/Pelvis Other: tenderness on palpation in paraspinal spinal region in lumbar spine. Loading test is positive. Range of motion in lumbar spine is severely compromised. John test is negative bilaterally the pain he reports on John test performance is related to the hip area and not the posterior area and not the back. Gaenslen is negative pelvic destruction test is negative for sacroiliac joint pain. He has antalgic gait mostly for the left lower extremity. He is using cane for ambulation. He has midline lower thoracic spine incision and left upper buttock incision accommodating the SCS device. The incisions are very well-healed.. Neuro Cranial nerves: Yes Equal, round and reactive pupils present Psych Speech and movement: Normal speech and movement present Affect: normal affect Attitude: cooperative Results Reviewed Results Reviewed: [address] [address] Magnetic Resonance Report Signed Patient: El Zapata MR#: [id number] : 1950 Acct:[id number] Age/Sex: 70 / M CERVICAL AND THORACIC SPINE MRI WITHOUT IV CONTRST CLINICAL INFORMATION: History of surgery with cervicothoracic pain.? COMPARISON: Thoracic spine radiographs 07/01/2021.? TECHNIQUE: Multiplanar multisequence MR imaging of the cervical and thoracic spine obtained without IV contrast.? FINDINGS: CERVICAL SPINE MRI: There are postoperative changes following ACDF at C5-C6. There is anterior subluxation of C3 on C4 and C4 on C5 as well as C7 on T1. Mild disc volume loss at C6-C7 and C7-T1. There is no bone marrow edema. There are no acute fractures within the cervical spine. The craniocervical junction is unremarkable. Cervical cord morphology is normal. Partially imaged posterior fossa is unremarkable. The cervical arterial flow voids are maintained. No significant extraspinal soft tissue findings. No cord signal changes. C2-C3: Disc contour is normal. Uncovertebral joint spurring and hypertrophic facet arthropathy result in mild left-sided foraminal encroachment. C3-C4: Mild anterior subluxation. Disc osteophyte without central canal stenosis. Uncovertebral joint hypertrophy and hypertrophic facet arthropathy result in mild to moderate bilateral foraminal stenosis. C4-C5: Disc osteophyte mildly narrows the central canal. Uncovertebral joint hypertrophy and hypertrophic facet arthropathy result in severe right-sided foraminal stenosis. C5-C6: ACDF changes. No central canal stenosis. Advanced left-sided facet arthropathy results in moderate left-sided foraminal encroachment. C6-C7: A shallow central disc protrusion and ligamentum flavum thickening mildly narrow the central canal. Advanced uncovertebral joint hypertrophy and hypertrophic facet arthropathy result in moderate bilateral foraminal stenosis. C7-T1: Anterior subluxation. No central canal stenosis. Advanced bilateral facet arthropathy resulting in moderate to severe bilateral foraminal stenosis. THORACIC SPINE: Vertebral body heights are maintained. Mild to moderate disc volume loss at the mid thoracic levels. Modic type I endplate signal changes at L1-L2 and to a lesser extent T10-T11. Attic endplate Schmorl's nodes within the mid thoracic spine. There is significant marrow edema associated with the right sixth costovertebral joint, most likely degenerative/inflammatory. There is any clinical concern for trauma to this area, a CT can be obtained. Multilevel endplate osteophytes. Nondiagnostic assessment for thoracic cord signal abnormality given the degree of significant artifact obscuring the thoracic spine, particularly at the level of the spinal stimulator device. Surgical hardware not diagnostically assessed on MRI. No significant extraspinal soft tissue findings. Small paracentral disc protrusions throughout the thoracic spine highly narrow the central canal. No severe central canal stenosis within the thoracic spine. Varying degrees of mild to moderate foraminal encroachment throughout the thoracic spine. Conus terminates at the T12-L1 level. THORACIC SPINE MRI: Midthoracic kyphosis. 12 rib-bearing thoracic type vertebral bodies. Spinal stimulator device extends through the T9-T10 interlaminar space with the electrode situated along the dorsal thecal sac at T8-T10. MR/MR cervical spine wo con IMPRESSION: - Within the cervical spine there are postoperative changes following ACDF at C5-C6. Spondylitic changes throughout the cervical spine resulting in varying degrees of moderate to severe foraminal stenosis bilaterally. There is no severe central canal stenosis within the cervical spine.? ? - Spinal stimulator device extends through the T9-T10 interlaminar space with the electrode situated along the dorsal thecal sac at T8-T10. ? - There is significant marrow edema associated with the right sixth costovertebral joint, most likely degenerative/inflammatory. There is any clinical concern for trauma to this area, a CT can be obtained. ? - Multilevel thoracic spondylosis. Nondiagnostic assessment for thoracic cord signal abnormality secondary to artifact on this study. There is mild to moderate thoracic spondylosis and there is a midthoracic kyphosis. No severe central canal stenosis within the thoracic spine. No thoracic cord compression. Assessment of the thoracic cord at the level of the spinal stimulator electrode is nondiagnostic secondary to artifact from electrode. Assessment & Plan Assessment & Plan (1) Retrolisthesis of vertebrae: Code(s): M43.10 - Spondylolisthesis, site unspecified (2) Chronic pain syndrome: Code(s): G89.4 - Chronic pain syndrome (3) Disc degeneration, lumbar: Code(s): M51.36 - Other intervertebral disc degeneration, lumbar region (4) Degeneration, intervertebral disc, cervical: Code(s): M50.30 - Other cervical disc degeneration, unspecified cervical region (5) Spondylosis, lumbar, with myelopathy: Code(s): M47.16 - Other spondylosis with myelopathy, lumbar region Plan: He recently went for total knee replacement. As of his chest trauma he did not show for coastal injection. Endorses most spasticity in lower back with radiation of the spastic pain into the bilateral flanks and mid back. The pump refill see as below. Next time we refill his pump with Baclofen 200mcg/ml to added to current concentration of bupivacaine 16mg/ml and 1.5mg/ml Dilaudid. The next refill on or before 05/14/23. Plan Intrathecal pump refill. ? THE PATIENT CAME TODAY IN office FOR THE CHANGE OF THE MEDICATION IN his PAIN PUMP. The name and date of were verified and informed consent was obtained for the procedure. ? ?The pump was interrogated and the residual amount of fluid was found to be 6.9mL. HE WAS POSITIONED prone on the bed AND THE AREA OF THE INTRATHECAL PUMP WAS PREPPED WITH CHLORAPREP. The fenestrated drape was sterilely applied over the area of the pump. Sterile gloves were worn and of the aspiration system was assembled containing 2 in 22 gauge noncoring needle, the needle was connected to extension tubing which was connected to the 20 cc sterile syringe. The pain pump was palpated under the skin in the patient's right buttock area. The needle was inserted through the skin and the central plug of the pain pump and fluid was aspirated. The clear fluid was going into the syringe the total amount of the fluid was 7.4 mL .. After that a new batch? of medication was obtained which was containing Dilaudid 1500mcg and Bupivacain 16 mg per ml. The admixture was made in 20 cc syringe prepared by [facility] compounding pharmacy. The syringe was connected to the bacterial filter, and then connected to the extension tubing. After that the medication in the syringe was slowly instilled into the pump with aspirations at 15 and 5 cc gibbs.? The pump was left as previously for with simple continuous infusion on the hydromorphone 230 mcg a day on after 33 hours of bridge bolus he will be able to administer himself on PTM 90 micro g of Dilaudid every 4 hours 4 times a day. Coding Level of Care Code Est Pt Level 3 (76341) Procedure Only Diagnoses Retrolisthesis of vertebrae M43.10 Chronic pain syndrome G89.4 Disc degeneration, lumbar M51.36 Degeneration, intervertebral disc, cervical M50.30 Spondylosis, lumbar, with myelopathy M47.16
[2023-03-30 13:55] VITALS: BP 138/80; PULSE 100; RESP 16; O2SAT 97
== END 2023-03-30 14:32 | disposition home or self-care (01) ==
PROVIDERS: PCP Surgery Surgical Oncology; Visit Provider Anesthesiology
DX: M43.10 Spondylolisthesis, site unspecified (principal); G89.4 Chronic pain syndrome; M51.36 Other intervertebral disc degeneration, lumbar region; M50.30 Other cervical disc degeneration, unspecified cervical region; Z45.1 Encounter for adjustment and management of infusion pump
CPT/HCPCS: 95991; 99213

== ENCOUNTER → 2023-03-30 13:43 | Outpatient (BNVA) | payer MEDICARE, SELFPAY | PROVIDERS: PCP Surgery Surgical Oncology; Visit Provider Anesthesiology | DX: Z45.1 Encounter for adjustment and management of infusion pump (principal); G89.4 Chronic pain syndrome; M43.10 Spondylolisthesis, site unspecified; M51.36 Other intervertebral disc degeneration, lumbar region; M50.30 Other cervical disc degeneration, unspecified cervical region; M47.16 Other spondylosis with myelopathy, lumbar region | CPT/HCPCS: 99212 ==

== ENCOUNTER 2023-05-11 14:28 | Outpatient (AMB) | payer MEDICARE, SELFPAY ==
--- NOTE | 2023-05-11 14:42 | A.OFFVIS_ITS ---
Intake Vital Signs 05/11/23 15:31 Height 5 ft 9 in Weight 203 lb BMI 30.0 BP 127/60 Blood Pressure Location Lt brachial Position Sitting Respiration 16 Pulse 66 Pulse Source Pulse Oximeter Pulse Oximetry (%) 94 Oxygen Delivery Method Room Air Intake Visit Reasons: ITDD Refill Allergies No Known Allergies Allergy (Verified 05/11/23 15:32) HPI HPI Comments History of Present Illness Details El is in my office for intrathecal pain pump medication refill. He will receive new medication today with addition of baclofen to 200 micro g per mL the rest of the medication will stay the same. He will be given a bridge bolus for 37 days and 50 minutes after which he may start to use his PTM device. He continues to endorse her spasticity and spastic pain in the lower back with radiation into the mid back and bilateral flank small on the left and less on the right. So he will be continuing his pump with baclofen now the doses very small we can escalated in the future provided that it will have no side effects and no complications from baclofen. I spoke with him and I explained to him most common side effects of baclofen which is weakness in bilateral lower extremity. I told him that this side effects transient and eventually he will gain his strength back in bilateral lower extremities. [facility] Medical History (Updated 12/23/22 @ 09:25 by Myranda Olivarez APRN, ASHLEY) Obesity PTSD (post-traumatic stress disorder) GERD (gastroesophageal reflux disease) Hypercholesteremia Hypothyroid Retrolisthesis of vertebrae Spondylosis, lumbar, with myelopathy Degeneration, intervertebral disc, cervical Disc degeneration, lumbar Chronic pain syndrome Surgical History (Updated 07/09/21 @ 12:54 by Ynes Guy RN) S/P insertion of spinal cord stimulator History of total left knee replacement Social History Patient Tobacco Use Status: Never used Tobacco Review of Systems Const All systems reviewed & are unremarkable except as noted in HPI and below Physical Exam Vital Signs: Last Vital Signs Pulse 66 05/11/23 15:31 Resp 16 05/11/23 15:31 BP 127/60 05/11/23 15:31 Pulse Ox 94 05/11/23 15:31 Oxygen Delivery Method Room Air 05/11/23 15:31 BMI result Body Mass Index 30.0 Const General: comfortable, no acute distress, well developed, alert and awake Eyes Pupils: Equal, round and reactive pupils present EOM: EOMs intact bilaterally Chest Other: Severe tenderness on palpation in the projection of the 7 rib on the left. Also tenderness of palpation of approximately 8 and 6 rib. Chest palpation & inspection: other (Severe tenderness on palpation on the left sided chest. Mostly in the proj) Resp Effort & Inspection: normal respiratory effort, able to speak in complete sentences, normal respiratory pattern, no audible wheezes and no cough Cardio Jugular venous distension: no JVD Back/Spine/Pelvis Other: tenderness on palpation in paraspinal spinal region in lumbar spine. Loading test is positive. Range of motion in lumbar spine is severely compromised. John test is negative bilaterally the pain he reports on John test performance is related to the hip area and not the posterior area and not the back. Gaenslen is negative pelvic destruction test is negative for sacroiliac joint pain. He has antalgic gait mostly for the left lower extremity. He is using cane for ambulation. He has midline lower thoracic spine incision and left upper buttock incision accommodating the SCS device. The incisions are very well-healed.. Neuro Cranial nerves: Yes Equal, round and reactive pupils present Psych Speech and movement: Normal speech and movement present Affect: normal affect Attitude: cooperative Assessment & Plan Assessment & Plan (1) Retrolisthesis of vertebrae: Code(s): M43.10 - Spondylolisthesis, site unspecified (2) Chronic pain syndrome: Code(s): G89.4 - Chronic pain syndrome (3) Disc degeneration, lumbar: Code(s): M51.36 - Other intervertebral disc degeneration, lumbar region (4) Degeneration, intervertebral disc, cervical: Code(s): M50.30 - Other cervical disc degeneration, unspecified cervical region (5) Spondylosis, lumbar, with myelopathy: Code(s): M47.16 - Other spondylosis with myelopathy, lumbar region Plan: The pump refill see as below. Baclofen 200mcg/ml to added to current concentration of bupivacaine 16mg/ml and 1.5 mg/ml Dilaudid. The next refill on or before 06/25/2023 Plan Intrathecal pump refill. ? THE PATIENT CAME TODAY IN office FOR THE CHANGE OF THE MEDICATION IN his PAIN PUMP. The name and date of were verified and informed consent was obtained for the procedure. ? ?The pump was interrogated and the residual amount of fluid was found to be 9.8 mL. HE WAS POSITIONED prone on the bed AND THE AREA OF THE INTRATHECAL PUMP WAS PREPPED WITH CHLORAPREP. The fenestrated drape was sterilely applied over the area of the pump. Sterile gloves were worn and of the aspiration system was assembled containing 2 in 22 gauge noncoring needle, the needle was connected to extension tubing which was connected to the 20 cc sterile syringe. The pain pump was palpated under the skin in the patient's right buttock area. The needle was inserted through the skin and the central plug of the pain pump and fluid was aspirated. The clear fluid was going into the syringe the total amount of the fluid was 9.5 mL .. After that a new batch? of medication was obtained which was containing Dilaudid 1500mcg and Bupivacain 16 mg per ml. The admixture was made in 20 cc syringe prepared by [facility] compounding pharmacy. The syringe was connected to the bacterial filter, and then connected to the extension tubing. After that the medication in the syringe was slowly instilled into the pump with aspirations at 15 and 5 cc gibbs.? The pump was left as previously for with simple continuous infusion on the hydromorphone 230 mcg a day on after 33 hours of bridge bolus he will be able to administer himself on PTM 90 micro g of Dilaudid every 4 hours 4 times a day. Coding Level of Care Code Est Pt Level 4 (16518) Procedure Only Diagnoses Retrolisthesis of vertebrae M43.10 Chronic pain syndrome G89.4 Disc degeneration, lumbar M51.36 Degeneration, intervertebral disc, cervical M50.30 Spondylosis, lumbar, with myelopathy M47.16
[2023-05-11 15:31] VITALS: BP 127/60; PULSE 66; RESP 16; O2SAT 94
== END 2023-05-11 15:10 | disposition home or self-care (01) ==
PROVIDERS: PCP Surgery Surgical Oncology; Visit Provider Anesthesiology
DX: M43.10 Spondylolisthesis, site unspecified (principal); G89.4 Chronic pain syndrome; M51.36 Other intervertebral disc degeneration, lumbar region; Z45.1 Encounter for adjustment and management of infusion pump; M50.30 Other cervical disc degeneration, unspecified cervical region; M47.16 Other spondylosis with myelopathy, lumbar region
CPT/HCPCS: 62370

== ENCOUNTER → 2023-05-11 14:28 | Outpatient (BNVA) | payer MEDICARE, SELFPAY | PROVIDERS: PCP Surgery Surgical Oncology; Visit Provider Anesthesiology | DX: Z45.1 Encounter for adjustment and management of infusion pump (principal); M43.10 Spondylolisthesis, site unspecified; M51.36 Other intervertebral disc degeneration, lumbar region; M50.30 Other cervical disc degeneration, unspecified cervical region; M47.16 Other spondylosis with myelopathy, lumbar region; G89.4 Chronic pain syndrome | CPT/HCPCS: 62370 ==

== ENCOUNTER → 2023-06-27 15:02 | Outpatient (BNVA) | payer MEDICARE, SELFPAY | PROVIDERS: PCP Surgery Surgical Oncology; Visit Provider Anesthesiology | DX: Z45.1 Encounter for adjustment and management of infusion pump (principal); M51.36 Other intervertebral disc degeneration, lumbar region; M50.30 Other cervical disc degeneration, unspecified cervical region; M47.16 Other spondylosis with myelopathy, lumbar region; G89.4 Chronic pain syndrome | CPT/HCPCS: 99212 ==

== ENCOUNTER 2023-06-27 15:21 | Outpatient (AMB) | payer MEDICARE, SELFPAY ==
--- NOTE | 2023-06-27 15:05 | MHC.OFFVIS ---
Intake Vital Signs 06/27/23 15:56 Height 5 ft 9 in Weight 195 lb 8 oz BMI 28.9 BP 146/86 H Blood Pressure Location Lt brachial Position Sitting Respiration 16 Pulse 102 H Pulse Source Pulse Oximeter Pulse Oximetry (%) 98 Oxygen Delivery Method Room Air Intake Visit Reasons: ITDD REFILL/lvm Allergies No Known Allergies Allergy (Verified 06/27/23 15:57) HPI HPI Comments History of Present Illness Details El is in my office for intrathecal pain pump medication refill. He will receive new medication today with increase of the dose of baclofen to 400 micro g / per mL the rest of the medication will stay the same. He reports no side effects from the medication so far and therefore I decided not to give him any bridge bolus today. If he will use all his PTM doses he will go through the medication in his catheter in the course of the 2 and half to 3 days. I explained to him that he might start feeling his legs weaker in 2-3 days. He continues to endorse her spasticity and spastic pain in the lower back with radiation into the mid back and bilateral flank small on the left and less on the right. [facility] Medical History (Updated 12/23/22 @ 09:25 by Myranda Olivarez APRN, MARINE GEOLOGIST) Obesity PTSD (post-traumatic stress disorder) GERD (gastroesophageal reflux disease) Hypercholesteremia Hypothyroid Retrolisthesis of vertebrae Spondylosis, lumbar, with myelopathy Degeneration, intervertebral disc, cervical Disc degeneration, lumbar Chronic pain syndrome Surgical History (Updated 07/09/21 @ 12:54 by Ynes Guy RN) S/P insertion of spinal cord stimulator History of total left knee replacement Social History Patient Tobacco Use Status: Never used Tobacco Review of Systems Const All systems reviewed & are unremarkable except as noted in HPI and below Physical Exam Vital Signs: Last Vital Signs Pulse 102 H 06/27/23 15:56 Resp 16 06/27/23 15:56 BP 146/86 H 06/27/23 15:56 Pulse Ox 98 06/27/23 15:56 Oxygen Delivery Method Room Air 06/27/23 15:56 BMI result Body Mass Index 28.9 Const General: comfortable, no acute distress, well developed, alert and awake Eyes Pupils: Equal, round and reactive pupils present EOM: EOMs intact bilaterally Chest Other: Severe tenderness on palpation in the projection of the 7 rib on the left. Also tenderness of palpation of approximately 8 and 6 rib. Chest palpation & inspection: other (Severe tenderness on palpation on the left sided chest. Mostly in the proj) Resp Effort & Inspection: normal respiratory effort, able to speak in complete sentences, normal respiratory pattern, no audible wheezes and no cough Cardio Jugular venous distension: no JVD Back/Spine/Pelvis Other: tenderness on palpation in paraspinal spinal region in lumbar spine. Loading test is positive. Range of motion in lumbar spine is severely compromised. John test is negative bilaterally the pain he reports on John test performance is related to the hip area and not the posterior area and not the back. [place] is negative pelvic destruction test is negative for sacroiliac joint pain. He has antalgic gait mostly for the left lower extremity. He is using cane for ambulation. He has midline lower thoracic spine incision and left upper buttock incision accommodating the SCS device. The incisions are very well-healed.. Neuro Cranial nerves: Yes Equal, round and reactive pupils present Psych Speech and movement: Normal speech and movement present Affect: normal affect Attitude: cooperative Assessment & Plan Assessment & Plan (1) Retrolisthesis of vertebrae: Code(s): M43.10 - Spondylolisthesis, site unspecified (2) Chronic pain syndrome: Code(s): G89.4 - Chronic pain syndrome (3) Disc degeneration, lumbar: Code(s): M51.36 - Other intervertebral disc degeneration, lumbar region (4) Degeneration, intervertebral disc, cervical: Code(s): M50.30 - Other cervical disc degeneration, unspecified cervical region (5) Spondylosis, lumbar, with myelopathy: Code(s): M47.16 - Other spondylosis with myelopathy, lumbar region Plan: The pump refill see as below. Baclofen dose to 400 micro g per mL was added to the admixture of the current dose of bupivacaine 16mg/ml and 1.5 mg/ml Dilaudid. The next refill will be in 45 days. Plan Intrathecal pump refill. ? THE PATIENT CAME TODAY IN office FOR THE CHANGE OF THE MEDICATION IN his PAIN PUMP. The name and date of were verified and informed consent was obtained for the procedure. ? ?The pump was interrogated and the residual amount of fluid was found to be 8.2 mL. HE WAS POSITIONED prone on the bed AND THE AREA OF THE INTRATHECAL PUMP WAS PREPPED WITH CHLORAPREP. The fenestrated drape was sterilely applied over the area of the pump. Sterile gloves were worn and of the aspiration system was assembled containing 2 in 22 gauge noncoring needle, the needle was connected to extension tubing which was connected to the 20 cc sterile syringe. The pain pump was palpated under the skin in the patient's right buttock area. The needle was inserted through the skin and the central plug of the pain pump and fluid was aspirated. The clear fluid was going into the syringe the total amount of the fluid was 8.7 mL .. After that a new batch? of medication was obtained which was containing Dilaudid 1500mcg and Bupivacain 16 mg per ml. The admixture was made in 20 cc syringe prepared by [facility] compounding pharmacy. The syringe was connected to the bacterial filter, and then connected to the extension tubing. After that the medication in the syringe was slowly instilled into the pump with aspirations at 15 and 5 cc gibbs.? The pump was left as previously for with simple continuous infusion on the hydromorphone 230 mcg a day +4 doses of hydromorphone 90 micro g every 4 hours up to 4 times in 24 hour. Coding Level of Care Code Est Pt Level 3 (24591) Procedure Only Diagnoses Retrolisthesis of vertebrae M43.10 Chronic pain syndrome G89.4 Disc degeneration, lumbar M51.36 Degeneration, intervertebral disc, cervical M50.30 Spondylosis, lumbar, with myelopathy M47.16
[2023-06-27 15:56] VITALS: BP 146/86; PULSE 102; RESP 16; O2SAT 98; BMI 28.9
== END 2023-06-27 15:37 | disposition home or self-care (01) ==
PROVIDERS: PCP Surgery Surgical Oncology; Visit Provider Anesthesiology
DX: M43.10 Spondylolisthesis, site unspecified (principal); G89.4 Chronic pain syndrome; M51.36 Other intervertebral disc degeneration, lumbar region; M50.30 Other cervical disc degeneration, unspecified cervical region; M47.16 Other spondylosis with myelopathy, lumbar region; Z45.1 Encounter for adjustment and management of infusion pump
CPT/HCPCS: 95991; 99213

== ENCOUNTER 2023-06-30 16:51 | Emergency (ER) | payer OTHER, SELFPAY ==
[2023-06-30 17:30] VITALS: BP 137/42; PULSE 74; RESP 16; O2SAT 99; BMI 27.9
--- NOTE | 2023-06-30 17:32 | ED_ITS ---
HPI - General Adult General Chief complaint: Dizziness Stated complaint: vomiting/pain dr advised him to come in for med ck Time Seen by Provider: 06/30/23 18:03 Source: patient and RN notes reviewed Mode of arrival: ambulatory Limitations: no limitations History of Present Illness HPI narrative: This is a 72-year-old male, with a history of chronic pain on intrathecal pain pump, presenting to the emergency department with complaints of increased nausea and vomiting for the last 3 days. He states that he was seen by his pain specialist, Dr. Mckeon on 06/27/2023 who ultimately increased his baclofen dose. He states that since that this happened he has had nausea, vomiting. He called his provider and was told to come to the emergency room. He was seen ultimately in triage by Dr. Mckeon, see MDM for further note. Patient has no abdominal pain. No urinary symptoms. No other complaints or concerns at this time. MD complaint: Nausea and vomiting Relieving factors: none Exacerbating factors: none Associated symptoms: denies other symptoms Treatments prior to arrival: none Related Data Home Medications Medication Instructions Recorded Confirmed levothyroxine 07/09/21 11/10/22 omeprazole 07/09/21 11/10/22 paroxetine HCl 07/09/21 11/10/22 simvastatin 07/09/21 11/10/22 zolpidem 07/09/21 11/10/22 furosemide 20 mg tablet (Lasix) 10 mg PO BID 02/15/22 11/10/22 betamethasone valerate 0.1 % appl topical DAILY PRN 05/31/22 11/10/22 topical cream Previous Rx's Medication Instructions Recorded hydromorphone 4 mg tablet 4 mg PO Q4H PRN pain 14 days #56 11/15/22 tabs naloxone 4 mg/actuation nasal spray 4 mg intranasal Q2M PRN opioid 11/15/22 overdose 1 day #2 ea Allergies Allergy/AdvReac Type Severity Reaction Status Date / Time No Known Allergies Allergy Verified 06/27/23 15:57 Review of Systems Review of Systems: Yes all other systems are reviewed and are negative [facility] Past Medical History Attestation statement: The following information was validated with the patient. Medical History Obesity PTSD (post-traumatic stress disorder) GERD (gastroesophageal reflux disease) Hypercholesteremia Hypothyroid Retrolisthesis of vertebrae Spondylosis, lumbar, with myelopathy Degeneration, intervertebral disc, cervical Disc degeneration, lumbar Chronic pain syndrome Surgical History S/P insertion of spinal cord stimulator History of total left knee replacement Social History Social History Patient Tobacco Use Status: Never used Tobacco Advance Directives: No Advance Directives Information Provided: No Physical Exam ED Vital Signs: Vital Signs - 24 hr 06/30/23 17:30 Pulse Rate 74 Respiratory Rate 16 Blood Pressure 137/42 L Pulse Oximetry 99 Oxygen Delivery Method Room Air BMI result Body Mass Index 27.9 Const Other: General: Awake, alert, and oriented X3. No acute distress. HEENT: Normal inspection CVS: Normal heart rate and rhythm. Pulses normal. Respiratory: No respiratory distress Skin: Warm, dry, no rashes noted to exposed skin. Normal skin color. Normal skin turgor. Abdomen: Soft, nontender Extremities: Normal to inspection Neuro: Oriented X 3. No motor deficit. No sensory deficit. Medical Decision Making Medical Decision Making MDM Narrative: 72-year-old male presenting to the emergency department for evaluation of nausea and vomiting for the last 3 days. He was seen by his chronic pain clinical manager home care, Dr. Mckeon, who increased the dose of his baclofen on his intrathecal pain pump and has had these symptoms since. He was seen by Dr. Mckeon during his triage, and they had a long discussion in regards to being medically evaluated through the emergency room versus being treated outpatient. Patient adamantly refuses to be seen in the emergency room and for a possible admission. Dr. Mckeon also recommended that he could be admitted for further observation and management of his pain however patient refuses stating that he cannot afford this. I offered for him to see the financial advisors in the emergency room however patient would like to be discharged and to follow up outpatient with this provider. I discussed with patient that we are unable to rule out any other etiology for the nausea and vomiting. Given return precautions. Patient understands agrees with plan. Consult request for pain management to place note in regards to visit Differential Diagnosis Differential Diagnoses: The differential diagnosis associated with the presentation includes Pain management, medication side effect, nausea, vomiting, gastritis Consult Healthcare Provider Management of the patient was discussed with: Chief Port Director Dr. Mckeon Tests considered The following testing was considered but not selected: Labs, UA, further diagnostic imaging however patient refused. Discharge Plan Discharge Clinical Impression: Chronic pain syndrome Patient Disposition: Home, Self-Care Additional Instructions: Please follow up with Dr. Mckeon's recommendations. Stick to a bland diet - bread, rice, applesauce, crackers. Drink plenty of fluids get plenty of rest. You refused obtaining labs, for further workup in the emergency room. If any new or worsening symptoms occur, including but not limited to chest pain, shortness breath, abdominal pain, please return for re-evaluation. Prescriptions: No Action hydromorphone 4 mg tablet 4 mg PO Q4H PRN (Reason: pain) 14 Days Qty: 56 0RF Rx Instructions: Partial Fill upon patient request. naloxone 4 mg/actuation spray,non-aerosol 4 mg intranasal Q2M PRN (Reason: opioid overdose) 1 Days Qty: 2 3RF Rx Instructions: spray 1 dose into ONE nostril; alternate nostrils w each dose until help arrives levothyroxine omeprazole paroxetine HCl simvastatin zolpidem betamethasone valerate 0.1 % cream topical DAILY PRN furosemide [Lasix] 20 mg tablet 10 mg PO BID Discharge Date/Time: 06/30/23 18:49
--- NOTE | 2023-07-01 08:53 | P.CNPAIN_ITS ---
Review of Systems Review of Systems: Yes all other systems are reviewed and are negative [facility] Past Medical History Medical History Obesity PTSD (post-traumatic stress disorder) GERD (gastroesophageal reflux disease) Hypercholesteremia Hypothyroid Retrolisthesis of vertebrae Spondylosis, lumbar, with myelopathy Degeneration, intervertebral disc, cervical Disc degeneration, lumbar Chronic pain syndrome Surgical History S/P insertion of spinal cord stimulator History of total left knee replacement Social History Social History Patient Tobacco Use Status: Never used Tobacco Advance Directives: No Advance Directives Information Provided: No Physical Exam Vital Signs: Vital Signs: Last Vital Signs Pulse 74 06/30/23 17:30 Resp 16 06/30/23 17:30 BP 137/42 L 06/30/23 17:30 Pulse Ox 99 06/30/23 17:30 O2 Del Method Room Air 06/30/23 17:30 BMI result Body Mass Index 27.9 Const: General: cooperative, comfortable, no acute distress and alert Orientation/consciousness: oriented to person, oriented to place, oriented to time and patient oriented x3 Resp: Effort & Inspection: normal respiratory effort, able to speak in complete sentences, normal respiratory pattern, no audible wheezes, no cough and respiratory effort not decreased Cardio: Jugular venous distension: no JVD Back/Spine/Pelvis: Thoracic/Lumbar Spine: paraspinal muscle tenderness, thoracic spinal tenderness and lumbar spinal tenderness Neuro: General: oriented to person, oriented to place, oriented to time and patient oriented x3 Assessment and Plan (1) Presence of intrathecal pump: Status: Acute (2) Retrolisthesis of vertebrae: Status: Acute (3) Spondylosis, lumbar, with myelopathy: Status: Acute (4) Disc degeneration, lumbar: Status: Acute (5) Chronic pain syndrome: Status: Acute Plan We agreed that the patient will not be administering extra doses of boluses for himself I intrathecal pump until a new batch of the medication will be delivered to a pharmacy. As soon as pharmacy will receive the medication we can remove the medication containing baclofen and replace it with baclofen free medicine. The patient will be placed on bridge bolus and after that we will be able to administer himself boluses of the medications intrathecally. Total time managing care of this patient today: 20 minutes.
== END 2023-06-30 18:49 | disposition home or self-care (01) ==
PROVIDERS: Emergency Provider Student in an Organized Health Care Education/Training Program; PCP Internal Medicine
DX: G89.4 Chronic pain syndrome (principal); R11.2 Nausea with vomiting, unspecified; E78.00 Pure hypercholesterolemia, unspecified; Z96.82 Presence of neurostimulator; Z79.891 Long term (current) use of opiate analgesic; Z79.02 Long term (current) use of antithrombotics/antiplatelets; Z79.899 Other long term (current) drug therapy
CPT/HCPCS: 99213; 99281

== ENCOUNTER 2023-07-04 16:07 | Outpatient (AMB) | payer MEDICARE, SELFPAY ==
--- NOTE | 2023-07-04 16:08 | MHC.OFFVIS ---
Intake Vital Signs 07/04/23 16:37 Height 5 ft 9 in Weight 188 lb BMI 27.8 BP 160/68 H Blood Pressure Location Lt brachial Position Sitting Respiration 16 Pulse 97 Pulse Source Pulse Oximeter Pulse Oximetry (%) 97 Oxygen Delivery Method Room Air Intake Visit Reasons: ITDD Refill Allergies No Known Allergies Allergy (Verified 07/04/23 16:38) HPI HPI Comments History of Present Illness Details El is in my office for intrathecal pain pump medication refill. He reported that baclofen increased dose gave him severe nausea and vomiting inability to tolerate foot in drinks. He was requested not to give himself any PTM doses. We requested [facility] to rash a new medication into us which would contain hydromorphone 1500 mcg and bupivacaine 16 mg preservative-free intrathecally. Today patient came to us to replace the medication in his pain pump. See the procedures below. He will give us a call about his nausea and vomiting. He has a history of gastroparesis so his nausea and vomiting might not be related to the baclofen however since his stopped his PTM applications he started to feel significantly improved. Pump refill as below. [facility] Medical History Obesity PTSD (post-traumatic stress disorder) GERD (gastroesophageal reflux disease) Hypercholesteremia Hypothyroid Retrolisthesis of vertebrae Spondylosis, lumbar, with myelopathy Degeneration, intervertebral disc, cervical Disc degeneration, lumbar Chronic pain syndrome Surgical History S/P insertion of spinal cord stimulator History of total left knee replacement Social History Patient Tobacco Use Status: Never used Tobacco Review of Systems Const All systems reviewed & are unremarkable except as noted in HPI and below Physical Exam Vital Signs: Last Vital Signs Pulse 97 07/04/23 16:37 Resp 16 07/04/23 16:37 BP 160/68 H 07/04/23 16:37 Pulse Ox 97 07/04/23 16:37 Oxygen Delivery Method Room Air 07/04/23 16:37 BMI result Body Mass Index 27.8 Last Vital Signs Pulse 74 06/30/23 17:30 Resp 16 06/30/23 17:30 BP 137/42 L 06/30/23 17:30 Pulse Ox 99 06/30/23 17:30 O2 Del Method Room Air 06/30/23 17:30 BMI result Body Mass Index 27.9 Const General: cooperative, comfortable, no acute distress and alert Orientation/consciousness: oriented to person, oriented to place, oriented to time and patient oriented x3 Resp Effort & Inspection: normal respiratory effort, able to speak in complete sentences, normal respiratory pattern, no audible wheezes, no cough and respiratory effort not decreased Cardio Jugular venous distension: no JVD Back/Spine/Pelvis Thoracic/Lumbar Spine: paraspinal muscle tenderness, thoracic spinal tenderness and lumbar spinal tenderness Neuro General: oriented to person, oriented to place, oriented to time and patient oriented x3 Assessment & Plan Assessment & Plan (1) Retrolisthesis of vertebrae: Code(s): M43.10 - Spondylolisthesis, site unspecified (2) Chronic pain syndrome: Code(s): G89.4 - Chronic pain syndrome (3) Disc degeneration, lumbar: Code(s): M51.36 - Other intervertebral disc degeneration, lumbar region (4) Degeneration, intervertebral disc, cervical: Code(s): M50.30 - Other cervical disc degeneration, unspecified cervical region (5) Spondylosis, lumbar, with myelopathy: Code(s): M47.16 - Other spondylosis with myelopathy, lumbar region Plan: The pump refill see as below. Plan Intrathecal pump refill. ? THE PATIENT CAME TODAY IN office FOR THE CHANGE OF THE MEDICATION IN his PAIN PUMP. The name and date of were verified and informed consent was obtained for the procedure. ? ?The pump was interrogated and the residual amount of fluid was found to be 18.1 mL. HE WAS POSITIONED prone on the bed AND THE AREA OF THE INTRATHECAL PUMP WAS PREPPED WITH CHLORAPREP. The fenestrated drape was sterilely applied over the area of the pump. Sterile gloves were worn and of the aspiration system was assembled containing 2 in 22 gauge noncoring needle, the needle was connected to extension tubing which was connected to the 20 cc sterile syringe. The pain pump was palpated under the skin in the patient's right buttock area. The needle was inserted through the skin and the central plug of the pain pump and fluid was aspirated. The clear fluid was going into the syringe the total amount of the fluid was 17.5 mL .. After that a new batch? of medication was obtained which was containing Dilaudid 1500mcg and Bupivacain 16 mg per ml without baclofen. The admixture was made in 20 cc syringe prepared by [facility] compounding pharmacy. The syringe was connected to the bacterial filter, and then connected to the extension tubing. After that the medication in the syringe was slowly instilled into the pump with aspirations at 15 and 5 cc gibbs.? The pump was left as previously for with simple continuous infusion on the hydromorphone 230 mcg a day +4 doses of hydromorphone 90 micro g every 4 hours up to 4 times in 24 hour. Bridge bolus over the next 50 7 hours was given to the patient. That was explained to the patient. Coding Level of Care Code Est Pt Level 3 (56847) Procedure Only Diagnoses Retrolisthesis of vertebrae M43.10 Chronic pain syndrome G89.4 Disc degeneration, lumbar M51.36 Degeneration, intervertebral disc, cervical M50.30 Spondylosis, lumbar, with myelopathy M47.16
[2023-07-04 16:37] VITALS: BP 160/68; PULSE 97; RESP 16; O2SAT 97; BMI 27.8
== END 2023-07-04 16:35 | disposition home or self-care (01) ==
LOC: HO.PMC 16:07
PROVIDERS: PCP Internal Medicine; Visit Provider Anesthesiology
DX: G89.4 Chronic pain syndrome (principal); M43.10 Spondylolisthesis, site unspecified; M51.36 Other intervertebral disc degeneration, lumbar region; M50.30 Other cervical disc degeneration, unspecified cervical region; M47.16 Other spondylosis with myelopathy, lumbar region; Z45.1 Encounter for adjustment and management of infusion pump
CPT/HCPCS: 95991; 99213

== ENCOUNTER → 2023-07-04 16:07 | Outpatient (BNVA) | payer OTHER, SELFPAY | PROVIDERS: PCP Internal Medicine; Visit Provider Anesthesiology | DX: M43.10 Spondylolisthesis, site unspecified (principal); G89.4 Chronic pain syndrome; M51.36 Other intervertebral disc degeneration, lumbar region; M50.30 Other cervical disc degeneration, unspecified cervical region; M47.16 Other spondylosis with myelopathy, lumbar region | CPT/HCPCS: 99212 ==

== ENCOUNTER 2023-08-15 15:05 | Outpatient (AMB) | payer SELFPAY ==
--- NOTE | 2023-08-15 15:06 | A.OFFVIS_ITS ---
Intake Vital Signs 08/15/23 16:09 Height 5 ft 9 in Weight 188 lb BMI 27.8 BP 134/78 Blood Pressure Location Lt brachial Position Sitting Respiration 14 Pulse 81 Pulse Source Pulse Oximeter Pulse Oximetry (%) 96 Oxygen Delivery Method Room Air Intake Visit Reasons: ITDD Refill/lvm Intake Note: Patient comes in for intrathecal medication refill. Reports pain 10. Allergies No Known Allergies Allergy (Verified 08/15/23 16:10) HPI HPI Comments History of Present Illness Details El is in my office for intrathecal pain pump medication refill. He again reports severe pain in the lower back however when we interrogated his pain pump he had almost a half of the medicine not used. It means that he has not using his medication appropriately. I told him that he has inability to use every 4 hours 4 times a day his medication. She is requesting some medication stronger than the medication he has in his pump. I told him that hydromorphone is 1 of the strongest medication. However mentioned in the conversation today that he may try additional doses of the he out into his pump provided his insurance which is administration insurance will cover the cost of this medication. He also complains on pain in the neck. I evaluated the MRI of the cervical spine. I think I can offer him therapeutic medial branch block C5-C6 C7 b ilaterally in the attempt to alleviate his pain. I will schedule him for this procedure without sedation. Pump refill as below. [facility] Medical History Obesity PTSD (post-traumatic stress disorder) GERD (gastroesophageal reflux disease) Hypercholesteremia Hypothyroid Retrolisthesis of vertebrae Spondylosis, lumbar, with myelopathy Degeneration, intervertebral disc, cervical Disc degeneration, lumbar Chronic pain syndrome Surgical History S/P insertion of spinal cord stimulator History of total left knee replacement Social History Patient Tobacco Use Status: Never used Tobacco Review of Systems Const All systems reviewed & are unremarkable except as noted in HPI and below Physical Exam Vital Signs: Last Vital Signs Pulse 81 08/15/23 16:09 Resp 14 08/15/23 16:09 BP 134/78 08/15/23 16:09 Pulse Ox 96 08/15/23 16:09 Oxygen Delivery Method Room Air 08/15/23 16:09 BMI result Body Mass Index 27.8 Last Vital Signs Pulse 74 06/30/23 17:30 Resp 16 06/30/23 17:30 BP 137/42 L 06/30/23 17:30 Pulse Ox 99 06/30/23 17:30 O2 Del Method Room Air 06/30/23 17:30 BMI result Body Mass Index 27.9 Const General: cooperative, comfortable, no acute distress and alert Orientation/consciousness: oriented to person, oriented to place, oriented to time and patient oriented x3 Resp Effort & Inspection: normal respiratory effort, able to speak in complete sentences, normal respiratory pattern, no audible wheezes, no cough and respiratory effort not decreased Cardio Jugular venous distension: no JVD Back/Spine/Pelvis Thoracic/Lumbar Spine: paraspinal muscle tenderness, thoracic spinal tenderness and lumbar spinal tenderness Neuro General: oriented to person, oriented to place, oriented to time and patient oriented x3 Results Reviewed Results Reviewed: [place] [address] Magnetic Resonance Report Signed Patient: El Zapata MR#: [id number] : 1950 Acct:[id number] Age/Sex: 70 / M CERVICAL AND THORACIC SPINE MRI WITHOUT IV CONTRST CLINICAL INFORMATION: History of surgery with cervicothoracic pain.? COMPARISON: Thoracic spine radiographs 07/01/2021.? TECHNIQUE: Multiplanar multisequence MR imaging of the cervical and thoracic spine obtained without IV contrast.? FINDINGS: CERVICAL SPINE MRI: There are postoperative changes following ACDF at C5-C6. There is anterior subluxation of C3 on C4 and C4 on C5 as well as C7 on T1. Mild disc volume loss at C6-C7 and C7-T1. There is no bone marrow edema. There are no acute fractures within the cervical spine. The craniocervical junction is unremarkable. Cervical cord morphology is normal. Partially imaged posterior fossa is unremarkable. The cervical arterial flow voids are maintained. No significant extraspinal soft tissue findings. No cord signal changes. C2-C3: Disc contour is normal. Uncovertebral joint spurring and hypertrophic facet arthropathy result in mild left-sided foraminal encroachment. C3-C4: Mild anterior subluxation. Disc osteophyte without central canal stenosis. Uncovertebral joint hypertrophy and hypertrophic facet arthropathy result in mild to moderate bilateral foraminal stenosis. C4-C5: Disc osteophyte mildly narrows the central canal. Uncovertebral joint hypertrophy and hypertrophic facet arthropathy result in severe right-sided foraminal stenosis. C5-C6: ACDF changes. No central canal stenosis. Advanced left-sided facet arthropathy results in moderate left-sided foraminal encroachment. C6-C7: A shallow central disc protrusion and ligamentum flavum thickening mildly narrow the central canal. Advanced uncovertebral joint hypertrophy and hypertrophic facet arthropathy result in moderate bilateral foraminal stenosis. C7-T1: Anterior subluxation. No central canal stenosis. Advanced bilateral facet arthropathy resulting in moderate to severe bilateral foraminal stenosis. THORACIC SPINE: Vertebral body heights are maintained. Mild to moderate disc volume loss at the mid thoracic levels. Modic type I endplate signal changes at L1-L2 and to a lesser extent T10-T11. Attic endplate Schmorl's nodes within the mid thoracic spine. There is significant marrow edema associated with the right sixth costovertebral joint, most likely degenerative/inflammatory. There is any clinical concern for trauma to this area, a CT can be obtained. Multilevel endplate osteophytes. Nondiagnostic assessment for thoracic cord signal abnormality given the degree of significant artifact obscuring the thoracic spine, particularly at the level of the spinal stimulator device. Surgical hardware not diagnostically assessed on MRI. No significant extraspinal soft tissue findings. Small paracentral disc protrusions throughout the thoracic spine highly narrow the central canal. No severe central canal stenosis within the thoracic spine. Varying degrees of mild to moderate foraminal encroachment throughout the thoracic spine. Conus terminates at the T12-L1 level. THORACIC SPINE MRI: Midthoracic kyphosis. 12 rib-bearing thoracic type vertebral bodies. Spinal stimulator device extends through the T9-T10 interlaminar space with the electrode situated along the dorsal thecal sac at T8-T10. MR/MR cervical spine wo con IMPRESSION: - Within the cervical spine there are postoperative changes following ACDF at C5-C6. Spondylitic changes throughout the cervical spine resulting in varying degrees of moderate to severe foraminal stenosis bilaterally. There is no severe central canal stenosis within the cervical spine.? ? - Spinal stimulator device extends through the T9-T10 interlaminar space with the electrode situated along the dorsal thecal sac at T8-T10. ? - There is significant marrow edema associated with the right sixth costovertebral joint, most likely degenerative/inflammatory. There is any clinical concern for trauma to this area, a CT can be obtained. ? - Multilevel thoracic spondylosis. Nondiagnostic assessment for thoracic cord signal abnormality secondary to artifact on this study. There is mild to moderate thoracic spondylosis and there is a midthoracic kyphosis. No severe central canal stenosis within the thoracic spine. No thoracic cord compression. Assessment of the thoracic cord at the level of the spinal stimulator electrode is nondiagnostic secondary to artifact from electrode. Assessment & Plan Assessment & Plan (1) Retrolisthesis of vertebrae: Code(s): M43.10 - Spondylolisthesis, site unspecified (2) Chronic pain syndrome: Code(s): G89.4 - Chronic pain syndrome (3) Disc degeneration, lumbar: Code(s): M51.36 - Other intervertebral disc degeneration, lumbar region (4) Degeneration, intervertebral disc, cervical: Code(s): M50.30 - Other cervical disc degeneration, unspecified cervical region (5) Spondylosis, lumbar, with myelopathy: Code(s): M47.16 - Other spondylosis with myelopathy, lumbar region Plan: The pump refill see as below. (6) Spondylosis of cervical joint without myelopathy: Code(s): M47.812 - Spondylosis without myelopathy or radiculopathy, cervical region Plan: Patient complains on pain in the neck, he has postlaminectomy syndrome cervical spine. He has very large inflamed and enlarged facet joints on the image dictated as above. I offered him to perform bilateral diagnostic C5-C6 C7 medial branch block bilaterally to help the pain in the neck. Patient agreed to go for the procedure without sedation. Plan Intrathecal pump refill. ? THE PATIENT CAME TODAY IN office FOR THE CHANGE OF THE MEDICATION IN his PAIN PUMP. The name and date of were verified and informed consent was obtained for the procedure. ? ?The pump was interrogated and the residual amount of fluid was found to be 8.9 mL. HE WAS POSITIONED prone on the bed AND THE AREA OF THE INTRATHECAL PUMP WAS PREPPED WITH CHLORAPREP. The fenestrated drape was sterilely applied over the area of the pump. Sterile gloves were worn and of the aspiration system was assembled containing 2 in 22 gauge noncoring needle, the needle was connected to extension tubing which was connected to the 20 cc sterile syringe. The pain pump was palpated under the skin in the patient's right buttock area. The needle was inserted through the skin and the central plug of the pain pump and fluid was aspirated. The clear fluid was going into the syringe the total amount of the fluid was 10.4 mL .. After that a new batch? of medication was obtained which was containing Dilaudid 1500mcg and Bupivacain 16 mg per ml. The admixture was made in 20 cc syringe prepared by [facility] compounding pharmacy. The syringe was connected to the bacterial filter, and then connected to the extension tubing. After that the medication in the syringe was slowly instilled into the pump with aspirations at 15 and 5 cc gibbs.? The pump was left as previously for with simple continuous infusion on the hydromorphone 230 mcg a day +4 doses of hydromorphone 90 micro g every 4 hours up to 4 times in 24 hour. Coding Level of Care Code Est Pt Level 3 (66715) Procedure Only Diagnoses Retrolisthesis of vertebrae M43.10 Chronic pain syndrome G89.4 Disc degeneration, lumbar M51.36 Degeneration, intervertebral disc, cervical M50.30 Spondylosis, lumbar, with myelopathy M47.16 Spondylosis of cervical joint without myelopathy M47.812
[2023-08-15 16:09] VITALS: BP 134/78; PULSE 81; RESP 14; O2SAT 96; BMI 27.8
== END 2023-08-15 15:26 | disposition home or self-care (01) ==
PROVIDERS: PCP Internal Medicine; Visit Provider Anesthesiology
DX: M43.10 Spondylolisthesis, site unspecified (principal); G89.4 Chronic pain syndrome; M51.36 Other intervertebral disc degeneration, lumbar region; M50.30 Other cervical disc degeneration, unspecified cervical region; M47.16 Other spondylosis with myelopathy, lumbar region; M47.812 Spondylosis without myelopathy or radiculopathy, cervical region; Z45.1 Encounter for adjustment and management of infusion pump
CPT/HCPCS: 95991; 99213

== ENCOUNTER → 2023-08-15 15:05 | Outpatient (BNVA) | payer SELFPAY | PROVIDERS: PCP Internal Medicine; Visit Provider Anesthesiology | DX: Z45.1 Encounter for adjustment and management of infusion pump (principal); M43.10 Spondylolisthesis, site unspecified; G89.4 Chronic pain syndrome; M51.36 Other intervertebral disc degeneration, lumbar region; M50.30 Other cervical disc degeneration, unspecified cervical region; M47.16 Other spondylosis with myelopathy, lumbar region; M47.812 Spondylosis without myelopathy or radiculopathy, cervical region | CPT/HCPCS: 99212 ==

== ENCOUNTER 2023-09-28 15:23 | Outpatient (AMB) | payer MEDICARE, SELFPAY ==
--- NOTE | 2023-09-28 15:23 | MHC.OFFVIS ---
Intake Vital Signs 09/28/23 15:58 Height 5 ft 9 in Weight 214 lb BMI 31.6 BP 138/64 Blood Pressure Location Lt brachial Position Sitting Respiration 14 Pulse 81 Pulse Source Pulse Oximeter Pulse Oximetry (%) 97 Oxygen Delivery Method Room Air Intake Visit Reasons: ITDD REFILL/LVM Intake Note: Patient comes in for intrathecal medication refill. Reports pain 6/10. Allergies No Known Allergies Allergy (Verified 09/28/23 15:58) HPI HPI Comments History of Present Illness Details El is in my office for intrathecal pain pump medication refill. He ports today better pain level. He reports that he manages to remember to administer boluses of the medication. However he still has 7.5 cc of the medicine in the pump while his supposed to have 1.0 mL in the pump left only. Therefore about 1/3 of the medicine is left unused in his pump. I am very happy for him at his pain is better. The medication will be refilled today with the same concentration of the Dilaudid 1.5 milligram/mL and bupivacaine 16 milligram/mL. See the refill as below. [facility] Medical History Obesity PTSD (post-traumatic stress disorder) GERD (gastroesophageal reflux disease) Hypercholesteremia Hypothyroid Retrolisthesis of vertebrae Spondylosis, lumbar, with myelopathy Degeneration, intervertebral disc, cervical Disc degeneration, lumbar Chronic pain syndrome Surgical History S/P insertion of spinal cord stimulator History of total left knee replacement Social History Patient Tobacco Use Status: Never used Tobacco Review of Systems Const All systems reviewed & are unremarkable except as noted in HPI and below Physical Exam Vital Signs: Last Vital Signs Pulse 81 09/28/23 15:58 Resp 14 09/28/23 15:58 BP 138/64 09/28/23 15:58 Pulse Ox 97 09/28/23 15:58 Oxygen Delivery Method Room Air 09/28/23 15:58 BMI result Body Mass Index 31.6 Last Vital Signs Pulse 74 06/30/23 17:30 Resp 16 06/30/23 17:30 BP 137/42 L 06/30/23 17:30 Pulse Ox 99 06/30/23 17:30 O2 Del Method Room Air 06/30/23 17:30 BMI result Body Mass Index 27.9 Const General: cooperative, comfortable, no acute distress and alert Orientation/consciousness: oriented to person, oriented to place, oriented to time and patient oriented x3 Resp Effort & Inspection: normal respiratory effort, able to speak in complete sentences, normal respiratory pattern, no audible wheezes, no cough and respiratory effort not decreased Cardio Jugular venous distension: no JVD Back/Spine/Pelvis Thoracic/Lumbar Spine: paraspinal muscle tenderness, thoracic spinal tenderness and lumbar spinal tenderness Neuro General: oriented to person, oriented to place, oriented to time and patient oriented x3 Results Reviewed Results Reviewed: [address] [address] Magnetic Resonance Report Signed Patient: El Zapata MR#: [id number] : 1950 Acct:[id number] Age/Sex: 70 / M CERVICAL AND THORACIC SPINE MRI WITHOUT IV CONTRST CLINICAL INFORMATION: History of surgery with cervicothoracic pain.? COMPARISON: Thoracic spine radiographs 07/01/2021.? TECHNIQUE: Multiplanar multisequence MR imaging of the cervical and thoracic spine obtained without IV contrast.? FINDINGS: CERVICAL SPINE MRI: There are postoperative changes following ACDF at C5-C6. There is anterior subluxation of C3 on C4 and C4 on C5 as well as C7 on T1. Mild disc volume loss at C6-C7 and C7-T1. There is no bone marrow edema. There are no acute fractures within the cervical spine. The craniocervical junction is unremarkable. Cervical cord morphology is normal. Partially imaged posterior fossa is unremarkable. The cervical arterial flow voids are maintained. No significant extraspinal soft tissue findings. No cord signal changes. C2-C3: Disc contour is normal. Uncovertebral joint spurring and hypertrophic facet arthropathy result in mild left-sided foraminal encroachment. C3-C4: Mild anterior subluxation. Disc osteophyte without central canal stenosis. Uncovertebral joint hypertrophy and hypertrophic facet arthropathy result in mild to moderate bilateral foraminal stenosis. C4-C5: Disc osteophyte mildly narrows the central canal. Uncovertebral joint hypertrophy and hypertrophic facet arthropathy result in severe right-sided foraminal stenosis. C5-C6: ACDF changes. No central canal stenosis. Advanced left-sided facet arthropathy results in moderate left-sided foraminal encroachment. C6-C7: A shallow central disc protrusion and ligamentum flavum thickening mildly narrow the central canal. Advanced uncovertebral joint hypertrophy and hypertrophic facet arthropathy result in moderate bilateral foraminal stenosis. C7-T1: Anterior subluxation. No central canal stenosis. Advanced bilateral facet arthropathy resulting in moderate to severe bilateral foraminal stenosis. THORACIC SPINE: Vertebral body heights are maintained. Mild to moderate disc volume loss at the mid thoracic levels. Modic type I endplate signal changes at L1-L2 and to a lesser extent T10-T11. Attic endplate Schmorl's nodes within the mid thoracic spine. There is significant marrow edema associated with the right sixth costovertebral joint, most likely degenerative/inflammatory. There is any clinical concern for trauma to this area, a CT can be obtained. Multilevel endplate osteophytes. Nondiagnostic assessment for thoracic cord signal abnormality given the degree of significant artifact obscuring the thoracic spine, particularly at the level of the spinal stimulator device. Surgical hardware not diagnostically assessed on MRI. No significant extraspinal soft tissue findings. Small paracentral disc protrusions throughout the thoracic spine highly narrow the central canal. No severe central canal stenosis within the thoracic spine. Varying degrees of mild to moderate foraminal encroachment throughout the thoracic spine. Conus terminates at the T12-L1 level. THORACIC SPINE MRI: Midthoracic kyphosis. 12 rib-bearing thoracic type vertebral bodies. Spinal stimulator device extends through the T9-T10 interlaminar space with the electrode situated along the dorsal thecal sac at T8-T10. MR/MR cervical spine wo con IMPRESSION: - Within the cervical spine there are postoperative changes following ACDF at C5-C6. Spondylitic changes throughout the cervical spine resulting in varying degrees of moderate to severe foraminal stenosis bilaterally. There is no severe central canal stenosis within the cervical spine.? ? - Spinal stimulator device extends through the T9-T10 interlaminar space with the electrode situated along the dorsal thecal sac at T8-T10. ? - There is significant marrow edema associated with the right sixth costovertebral joint, most likely degenerative/inflammatory. There is any clinical concern for trauma to this area, a CT can be obtained. ? - Multilevel thoracic spondylosis. Nondiagnostic assessment for thoracic cord signal abnormality secondary to artifact on this study. There is mild to moderate thoracic spondylosis and there is a midthoracic kyphosis. No severe central canal stenosis within the thoracic spine. No thoracic cord compression. Assessment of the thoracic cord at the level of the spinal stimulator electrode is nondiagnostic secondary to artifact from electrode. Assessment & Plan Assessment & Plan (1) Retrolisthesis of vertebrae: Code(s): M43.10 - Spondylolisthesis, site unspecified (2) Chronic pain syndrome: Code(s): G89.4 - Chronic pain syndrome (3) Disc degeneration, lumbar: Code(s): M51.36 - Other intervertebral disc degeneration, lumbar region (4) Degeneration, intervertebral disc, cervical: Code(s): M50.30 - Other cervical disc degeneration, unspecified cervical region (5) Spondylosis, lumbar, with myelopathy: Code(s): M47.16 - Other spondylosis with myelopathy, lumbar region Plan: The pump refill see as below. (6) Spondylosis of cervical joint without myelopathy: Code(s): M47.812 - Spondylosis without myelopathy or radiculopathy, cervical region Plan: Patient feels better does not present much of the complaints today. Pump refill is as below. Plan Intrathecal pump refill. ? THE PATIENT CAME TODAY IN office FOR THE CHANGE OF THE MEDICATION IN his PAIN PUMP. The name and date of were verified and informed consent was obtained for the procedure. ? ?The pump was interrogated and the residual amount of fluid was found to be 7.5 mL. HE WAS POSITIONED prone on the bed AND THE AREA OF THE INTRATHECAL PUMP WAS PREPPED WITH CHLORAPREP. The fenestrated drape was sterilely applied over the area of the pump. Sterile gloves were worn and of the aspiration system was assembled containing 2 in 22 gauge noncoring needle, the needle was connected to extension tubing which was connected to the 20 cc sterile syringe. The pain pump was palpated under the skin in the patient's right buttock area. The needle was inserted through the skin and the central plug of the pain pump and fluid was aspirated. The clear fluid was going into the syringe the total amount of the fluid was 8.0 mL .. After that a new batch? of medication was obtained which was containing Dilaudid 1500mcg and Bupivacain 16 mg per ml. The admixture was made in 20 cc syringe prepared by [facility] compounding pharmacy. The syringe was connected to the bacterial filter, and then connected to the extension tubing. After that the medication in the syringe was slowly instilled into the pump with aspirations at 15 and 5 cc gibbs.? The pump was left as previously for with simple continuous infusion on the hydromorphone 230 mcg a day +4 doses of hydromorphone 90 micro g every 4 hours up to 4 times in 24 hour. Coding Level of Care Code Est Pt Level 3 (68270) Procedure Only Diagnoses Retrolisthesis of vertebrae M43.10 Chronic pain syndrome G89.4 Disc degeneration, lumbar M51.36 Degeneration, intervertebral disc, cervical M50.30 Spondylosis, lumbar, with myelopathy M47.16 Spondylosis of cervical joint without myelopathy M47.812
[2023-09-28 15:58] VITALS: BP 138/64; PULSE 81; RESP 14; O2SAT 97; BMI 31.6
== END 2023-09-28 15:53 | disposition home or self-care (01) ==
PROVIDERS: PCP Internal Medicine; Visit Provider Anesthesiology
DX: M43.10 Spondylolisthesis, site unspecified (principal); G89.4 Chronic pain syndrome; M51.36 Other intervertebral disc degeneration, lumbar region; M50.30 Other cervical disc degeneration, unspecified cervical region; M47.16 Other spondylosis with myelopathy, lumbar region; M47.812 Spondylosis without myelopathy or radiculopathy, cervical region; Z45.1 Encounter for adjustment and management of infusion pump
CPT/HCPCS: 95991; 99213

== ENCOUNTER → 2023-09-28 15:23 | Outpatient (BNVA) | payer MEDICARE, SELFPAY | PROVIDERS: PCP Internal Medicine; Visit Provider Anesthesiology | DX: M43.10 Spondylolisthesis, site unspecified (principal); M51.36 Other intervertebral disc degeneration, lumbar region; M50.30 Other cervical disc degeneration, unspecified cervical region; M47.16 Other spondylosis with myelopathy, lumbar region; M47.812 Spondylosis without myelopathy or radiculopathy, cervical region; G89.4 Chronic pain syndrome | CPT/HCPCS: 99212 ==

== ENCOUNTER 2023-11-14 15:00 | Outpatient (AMB) | payer MEDICARE, SELFPAY ==
--- NOTE | 2023-11-14 15:02 | MHC.OFFVIS ---
Vital Signs 11/14/23 15:13 Height 5 ft 9 in Weight 208 lb 8 oz BMI 30.8 BP 150/72 H Blood Pressure Location Lt brachial Position Sitting Respiration 14 Pulse 101 H Pulse Source Pulse Oximeter Pulse Oximetry (%) 97 Oxygen Delivery Method Room Air Intake Visit Reasons: ITDD REFILL Intake Note: Patient comes in for intrathecal medication refill. Reports pain 01/31. Allergies No Known Allergies Allergy (Verified 11/14/23 15:13) HPI Comments Details: El is in my office for intrathecal pain pump medication refill. He reports today aggravation of the pain. 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 He requests me to perform therapeutic bilateral medial branch blocks which in the past were helpful for his pain. I decided to perform those blocks however I need to visualize his intrathecal catheter before the block so I need Isovue-M contrast for the procedure and dye interrogation Lenin for the procedure. Pump refill is as below. The bolus magnitude was increased today to 110 micro g per application. Hopefully it will help his pain as well.. His concentration is still as previous Dilaudid 1.5 milligram/mL and bupivacaine 16 milligram/mL [facility] Medical History Obesity PTSD (post-traumatic stress disorder) GERD (gastroesophageal reflux disease) Hypercholesteremia Hypothyroid Retrolisthesis of vertebrae Spondylosis, lumbar, with myelopathy Degeneration, intervertebral disc, cervical Disc degeneration, lumbar Chronic pain syndrome Surgical History S/P insertion of spinal cord stimulator History of total left knee replacement Social History Patient Tobacco Use Status: Never used Tobacco Review of Systems Const All systems reviewed & are unremarkable except as noted in HPI and below Physical Exam Vital Signs: Last Vital Signs Pulse 101 H 11/14/23 15:13 Resp 14 11/14/23 15:13 BP 150/72 H 11/14/23 15:13 Pulse Ox 97 11/14/23 15:13 Oxygen Delivery Method Room Air 11/14/23 15:13 BMI result Body Mass Index 30.8 Last Vital Signs Pulse 74 06/30/23 17:30 Resp 16 06/30/23 17:30 BP 137/42 L 06/30/23 17:30 Pulse Ox 99 06/30/23 17:30 O2 Del Method Room Air 06/30/23 17:30 BMI result Body Mass Index 27.9 Const General: cooperative, comfortable, no acute distress and alert Orientation/consciousness: oriented to person, oriented to place, oriented to time and patient oriented x3 Resp Effort & Inspection: normal respiratory effort, able to speak in complete sentences, normal respiratory pattern, no audible wheezes, no cough and respiratory effort not decreased Cardio Jugular venous distension: no JVD Back/Spine/Pelvis Thoracic/Lumbar Spine: paraspinal muscle tenderness, thoracic spinal tenderness and lumbar spinal tenderness Neuro General: oriented to person, oriented to place, oriented to time and patient oriented x3 Assessment & Plan Assessment & Plan (1) Retrolisthesis of vertebrae: Code(s): M43.10 - Spondylolisthesis, site unspecified Category: Medical (2) Chronic pain syndrome: Code(s): G89.4 - Chronic pain syndrome Category: Medical (3) Disc degeneration, lumbar: Code(s): M51.36 - Other intervertebral disc degeneration, lumbar region Category: Medical (4) Degeneration, intervertebral disc, cervical: Code(s): M50.30 - Other cervical disc degeneration, unspecified cervical region Category: Medical (5) Spondylosis, lumbar, with myelopathy: Code(s): M47.16 - Other spondylosis with myelopathy, lumbar region Category: Medical Plan: The pump refill see as below. (6) Spondylosis of cervical joint without myelopathy: Code(s): M47.812 - Spondylosis without myelopathy or radiculopathy, cervical region Category: Medical Plan: Patient feels better does not present much of the complaints today. Pump refill is as below. (7) Spondylosis of lumbar region without myelopathy or radiculopathy: Code(s): M47.816 - Spondylosis without myelopathy or radiculopathy, lumbar region Category: Medical Plan Intrathecal pump refill. ? THE PATIENT CAME TODAY IN office FOR THE CHANGE OF THE MEDICATION IN his PAIN PUMP. The name and date of were verified and informed consent was obtained for the procedure. ? ?The pump was interrogated and the residual amount of fluid was found to be 8.3 mL. HE WAS POSITIONED prone on the bed AND THE AREA OF THE INTRATHECAL PUMP WAS PREPPED WITH CHLORAPREP. The fenestrated drape was sterilely applied over the area of the pump. Sterile gloves were worn and of the aspiration system was assembled containing 2 in 22 gauge noncoring needle, the needle was connected to extension tubing which was connected to the 20 cc sterile syringe. The pain pump was palpated under the skin in the patient's right buttock area. The needle was inserted through the skin and the central plug of the pain pump and fluid was aspirated. The clear fluid was going into the syringe the total amount of the fluid was 8.2 mL .. After that a new batch? of medication was obtained which was containing Dilaudid 1500mcg and Bupivacain 16 mg per ml. The admixture was made in 20 cc syringe prepared by [facility] compounding pharmacy. The syringe was connected to the bacterial filter, and then connected to the extension tubing. After that the medication in the syringe was slowly instilled into the pump with aspirations at 15 and 5 cc gibbs.? The pump was left as previously for with simple continuous infusion on the hydromorphone 230 mcg a day +4 doses of hydromorphone 110 micro g every 4 hours up to 4 times in 24 hour. Scribe Plan - Not visible on output: I here by testify that I spent 32 minutes in conversation with this patient as well as evaluating his prior records evaluating his prior studies and organizing this note.
[2023-11-14 15:13] VITALS: BP 150/72; PULSE 101; RESP 14; O2SAT 97; BMI 30.8
== END 2023-11-14 15:34 | disposition home or self-care (01) ==
LOC: HO.PMC 15:02
PROVIDERS: PCP Internal Medicine; Visit Provider Anesthesiology
DX: M43.10 Spondylolisthesis, site unspecified (principal); G89.4 Chronic pain syndrome; M51.36 Other intervertebral disc degeneration, lumbar region; M50.30 Other cervical disc degeneration, unspecified cervical region; M47.16 Other spondylosis with myelopathy, lumbar region; M47.812 Spondylosis without myelopathy or radiculopathy, cervical region; M47.816 Spondylosis without myelopathy or radiculopathy, lumbar region; Z45.1 Encounter for adjustment and management of infusion pump
CPT/HCPCS: 95991; 99214

== ENCOUNTER → 2023-11-14 15:02 | Outpatient (BNVA) | payer MEDICARE, SELFPAY | PROVIDERS: PCP Internal Medicine; Visit Provider Anesthesiology | DX: Z45.1 Encounter for adjustment and management of infusion pump (principal); M43.10 Spondylolisthesis, site unspecified; M51.36 Other intervertebral disc degeneration, lumbar region; G89.4 Chronic pain syndrome; M50.30 Other cervical disc degeneration, unspecified cervical region; M47.812 Spondylosis without myelopathy or radiculopathy, cervical region; M47.16 Other spondylosis with myelopathy, lumbar region; K91.5 Postcholecystectomy syndrome; Z96.82 Presence of neurostimulator | CPT/HCPCS: 99212 ==

== ENCOUNTER → 2023-12-22 15:33 | Outpatient (BNVA) | payer MEDICARE, SELFPAY | PROVIDERS: PCP Internal Medicine; Visit Provider Anesthesiology | DX: Z45.89 Encounter for adjustment and management of other implanted devices (principal); F11.20 Opioid dependence, uncomplicated; M43.10 Spondylolisthesis, site unspecified; M51.36 Other intervertebral disc degeneration, lumbar region; M50.30 Other cervical disc degeneration, unspecified cervical region; M47.16 Other spondylosis with myelopathy, lumbar region; M47.812 Spondylosis without myelopathy or radiculopathy, cervical region; M47.816 Spondylosis without myelopathy or radiculopathy, lumbar region; G89.4 Chronic pain syndrome | CPT/HCPCS: 99212 ==

== ENCOUNTER 2023-12-22 15:34 | Outpatient (AMB) | payer MEDICARE, SELFPAY ==
--- NOTE | 2023-12-22 15:39 | A.OFFVIS_ITS ---
Vital Signs 12/22/23 16:24 Height 5 ft 9 in Weight 208 lb BMI 30.7 BP 140/90 H Blood Pressure Location Lt brachial Position Sitting Respiration 14 Pulse 104 H Pulse Source Pulse Oximeter Pulse Oximetry (%) 94 Oxygen Delivery Method Room Air Intake Visit Reasons: ITDD REFILL Intake Note: Patient comes in for intrathecal medication refill. Reports pain 8/10. Allergies No Known Allergies Allergy (Verified 12/22/23 16:26) HPI Comments Details: El is in my office for intrathecal pain pump medication refill. He reports today aggravation of the pain. He stated today that his gastroparesis is getting worse. He has asking me a question whether the hydromorphone intrathecal could exacerbate his gastroparesis. He complains on intractable nausea and infrequent vomiting, inability to consume food and hold food down. He is under care of conservation specialist. We discussed the situation with the patient. I requested him to go to conservation specialist and provide summary of care for me. Possibility exists to stop hydromorphone intrathecal just at least temporarily and see if his gastroparesis is better Pump refill is as below. Everything was left as it was programmed before. See refill as below. [facility] Medical History Obesity PTSD (post-traumatic stress disorder) GERD (gastroesophageal reflux disease) Hypercholesteremia Hypothyroid Retrolisthesis of vertebrae Spondylosis, lumbar, with myelopathy Degeneration, intervertebral disc, cervical Disc degeneration, lumbar Chronic pain syndrome Surgical History S/P insertion of spinal cord stimulator History of total left knee replacement Social History Patient Tobacco Use Status: Never used Tobacco Review of Systems Const All systems reviewed & are unremarkable except as noted in HPI and below Physical Exam Vital Signs: Last Vital Signs Pulse 104 H 12/22/23 16:24 Resp 14 12/22/23 16:24 BP 140/90 H 12/22/23 16:24 Pulse Ox 94 12/22/23 16:24 Oxygen Delivery Method Room Air 12/22/23 16:24 BMI result Body Mass Index 30.7 Last Vital Signs Pulse 74 06/30/23 17:30 Resp 16 06/30/23 17:30 BP 137/42 L 06/30/23 17:30 Pulse Ox 99 06/30/23 17:30 O2 Del Method Room Air 06/30/23 17:30 BMI result Body Mass Index 27.9 Const General: cooperative, comfortable, no acute distress and alert Orientation/consciousness: oriented to person, oriented to place, oriented to time and patient oriented x3 Resp Effort & Inspection: normal respiratory effort, able to speak in complete sentences, normal respiratory pattern, no audible wheezes, no cough and respiratory effort not decreased Cardio Jugular venous distension: no JVD Back/Spine/Pelvis Thoracic/Lumbar Spine: paraspinal muscle tenderness, thoracic spinal tenderness and lumbar spinal tenderness Neuro General: oriented to person, oriented to place, oriented to time and patient oriented x3 Assessment & Plan Assessment & Plan (1) Retrolisthesis of vertebrae: Code(s): M43.10 - Spondylolisthesis, site unspecified Category: Medical (2) Chronic pain syndrome: Code(s): G89.4 - Chronic pain syndrome Category: Medical (3) Disc degeneration, lumbar: Code(s): M51.36 - Other intervertebral disc degeneration, lumbar region Category: Medical (4) Degeneration, intervertebral disc, cervical: Code(s): M50.30 - Other cervical disc degeneration, unspecified cervical region Category: Medical (5) Spondylosis, lumbar, with myelopathy: Code(s): M47.16 - Other spondylosis with myelopathy, lumbar region Category: Medical Plan: The pump refill see as below. (6) Spondylosis of cervical joint without myelopathy: Code(s): M47.812 - Spondylosis without myelopathy or radiculopathy, cervical region Category: Medical Plan: Patient reports increased gastroparesis nausea and vomiting. Possibility exists that hydromorphone is the cause. I need summary of care from conservation specialist. I told patient to obtain summary of care from conservation specialist. Possibility exists to at least temporarily stop hydromorphone to see if his gastroparesis will improve. (7) Spondylosis of lumbar region without myelopathy or radiculopathy: Code(s): M47.816 - Spondylosis without myelopathy or radiculopathy, lumbar region Category: Medical Plan Intrathecal pump refill. ? THE PATIENT CAME TODAY IN office FOR THE CHANGE OF THE MEDICATION IN his PAIN PUMP. The name and date of were verified and informed consent was obtained for the procedure. ? ?The pump was interrogated and the residual amount of fluid was found to be 6.0 mL. HE WAS POSITIONED prone on the bed AND THE AREA OF THE INTRATHECAL PUMP WAS PREPPED WITH CHLORAPREP. The fenestrated drape was sterilely applied over the area of the pump. Sterile gloves were worn and of the aspiration system was assembled containing 2 in 22 gauge noncoring needle, the needle was connected to extension tubing which was connected to the 20 cc sterile syringe. The pain pump was palpated under the skin in the patient's right buttock area. The needle was inserted through the skin and the central plug of the pain pump and fluid was aspirated. The clear fluid was going into the syringe the total amount of the fluid was 6.2 mL .. After that a new batch? of medication was obtained which was containing new concentration of Dilaudid Dilaudid 2000 micro g and new concentration of Bupivacain 23 mg per ml. The admixture was made in 20 cc syringe prepared by [facility] compounding pharmacy. The syringe was connected to the bacterial filter, and then connected to the extension tubing. After that the medication in the syringe was slowly instilled into the pump with aspirations at 15 and 5 cc gibbs.? The pump was left as previously for with simple continuous infusion left at 256.9 micro g of hydromorphone and on demand for doses 4 times a day in 24 hours. Of hydromorphone 109 micro g every 4 hours Coding Level of Care Code Est Pt Level 3 (64304) Procedure Only Diagnoses Retrolisthesis of vertebrae M43.10 Chronic pain syndrome G89.4 Disc degeneration, lumbar M51.36 Degeneration, intervertebral disc, cervical M50.30 Spondylosis, lumbar, with myelopathy M47.16 Spondylosis of cervical joint without myelopathy M47.812 Spondylosis of lumbar region without myelopathy or radiculopathy M47.816
[2023-12-22 16:24] VITALS: BP 140/90; PULSE 104; RESP 14; O2SAT 94; BMI 30.7
== END 2023-12-22 16:08 | disposition home or self-care (01) ==
PROVIDERS: PCP Internal Medicine; Visit Provider Anesthesiology
DX: M43.10 Spondylolisthesis, site unspecified (principal); G89.4 Chronic pain syndrome; M51.36 Other intervertebral disc degeneration, lumbar region; Z45.1 Encounter for adjustment and management of infusion pump; M50.30 Other cervical disc degeneration, unspecified cervical region; M47.16 Other spondylosis with myelopathy, lumbar region; M47.812 Spondylosis without myelopathy or radiculopathy, cervical region; M47.816 Spondylosis without myelopathy or radiculopathy, lumbar region
CPT/HCPCS: 95991; 99213

== ENCOUNTER 2024-02-13 14:36 | Outpatient (AMB) | payer MEDICARE, SELFPAY ==
--- NOTE | 2024-02-13 14:40 | MHC.OFFVIS ---
Vital Signs 02/13/24 15:33 Height 5 ft 8 in Weight 204 lb BMI 31.0 BP 150/72 H Blood Pressure Location Lt brachial Position Sitting Respiration 16 Pulse 82 Pulse Source Pulse Oximeter Pulse Oximetry (%) 96 Oxygen Delivery Method Room Air Intake Visit Reasons: ITDD REFILL Intake Note: Patient comes in for intrathecal medication refill. Reports pain 9/10. Allergies No Known Allergies Allergy (Verified 02/13/24 15:36) HPI Comments Details: El is in my office for intrathecal pain pump medication refill. He continues to report severe pain. He continues to state that pain pump does not help his pain. In the past we were discussing addition of baclofen to control his pain. The patient was given baclofen once and developed nausea. The baclofen therapy was terminated. However the patient after that came to me and said that the nausea most likely related to gastroparesis. It was just coincident with baclofen therapy. He went for GI examination and his [id number] [id number] armor crewman told him that his GI series is normal and no gastroparesis was found. He requests me to start baclofen again. I will start with concentration of 200 micro g which will give him less than 80 micro g of total dose of baclofen including administration of the baclofen on demand. Risks and benefits were prior discussed with him about baclofen. [facility] Medical History Obesity PTSD (post-traumatic stress disorder) GERD (gastroesophageal reflux disease) Hypercholesteremia Hypothyroid Retrolisthesis of vertebrae Spondylosis, lumbar, with myelopathy Degeneration, intervertebral disc, cervical Disc degeneration, lumbar Chronic pain syndrome Surgical History S/P insertion of spinal cord stimulator History of total left knee replacement Social History Patient Tobacco Use Status: Never used Tobacco Review of Systems Const All systems reviewed & are unremarkable except as noted in HPI and below Physical Exam Vital Signs: Last Vital Signs Pulse 82 02/13/24 15:33 Resp 16 02/13/24 15:33 BP 150/72 H 02/13/24 15:33 Pulse Ox 96 02/13/24 15:33 Oxygen Delivery Method Room Air 02/13/24 15:33 BMI result Body Mass Index 31.0 Last Vital Signs Pulse 74 06/30/23 17:30 Resp 16 06/30/23 17:30 BP 137/42 L 06/30/23 17:30 Pulse Ox 99 06/30/23 17:30 O2 Del Method Room Air 06/30/23 17:30 BMI result Body Mass Index 27.9 Const General: cooperative, comfortable, no acute distress and alert Orientation/consciousness: oriented to person, oriented to place, oriented to time and patient oriented x3 Resp Effort & Inspection: normal respiratory effort, able to speak in complete sentences, normal respiratory pattern, no audible wheezes, no cough and respiratory effort not decreased Cardio Jugular venous distension: no JVD Back/Spine/Pelvis Thoracic/Lumbar Spine: paraspinal muscle tenderness, thoracic spinal tenderness and lumbar spinal tenderness Neuro General: oriented to person, oriented to place, oriented to time and patient oriented x3 Assessment & Plan Assessment & Plan (1) Retrolisthesis of vertebrae: Code(s): M43.10 - Spondylolisthesis, site unspecified Category: Medical (2) Chronic pain syndrome: Code(s): G89.4 - Chronic pain syndrome Category: Medical (3) Disc degeneration, lumbar: Code(s): M51.36 - Other intervertebral disc degeneration, lumbar region Category: Medical (4) Degeneration, intervertebral disc, cervical: Code(s): M50.30 - Other cervical disc degeneration, unspecified cervical region Category: Medical (5) Spondylosis, lumbar, with myelopathy: Code(s): M47.16 - Other spondylosis with myelopathy, lumbar region Category: Medical Plan: The pump refill see as below. (6) Spondylosis of cervical joint without myelopathy: Code(s): M47.812 - Spondylosis without myelopathy or radiculopathy, cervical region Category: Medical Plan: Patient reports that recent [id number] [id number] armor crewman studies demonstrated no gastroparesis. Therefore now it is a moot point to decrease the level of the opioid in the pump. He requests me to start him on baclofen again to try the medication again. I will add 200 micro g 2 admixture which now will contain Dilaudid 2000 micro g bupivacaine 23 mg and baclofen 200 micro g. (7) Spondylosis of lumbar region without myelopathy or radiculopathy: Code(s): M47.816 - Spondylosis without myelopathy or radiculopathy, lumbar region Category: Medical Plan Intrathecal pump refill. ? THE PATIENT CAME TODAY IN office FOR THE CHANGE OF THE MEDICATION IN his PAIN PUMP. The name and date of were verified and informed consent was obtained for the procedure. ? ?The pump was interrogated and the residual amount of fluid was found to be 7.4 mL. HE WAS POSITIONED prone on the bed AND THE AREA OF THE INTRATHECAL PUMP WAS PREPPED WITH CHLORAPREP. The fenestrated drape was sterilely applied over the area of the pump. Sterile gloves were worn and of the aspiration system was assembled containing 2 in 22 gauge noncoring needle, the needle was connected to extension tubing which was connected to the 20 cc sterile syringe. The pain pump was palpated under the skin in the patient's right buttock area. The needle was inserted through the skin and the central plug of the pain pump and fluid was aspirated. The clear fluid was going into the syringe the total amount of the fluid was 8.0 mL .. After that a new batch? of medication was obtained which was containing new concentration of Dilaudid Dilaudid 2000 micro g and new concentration of Bupivacain 23 mg per ml. The admixture was made in 20 cc syringe prepared by [facility] compounding pharmacy. The syringe was connected to the bacterial filter, and then connected to the extension tubing. After that the medication in the syringe was slowly instilled into the pump with aspirations at 15 and 5 cc gibbs.? The pump was left as previously for with simple continuous infusion left at 256.9 micro g of hydromorphone and on demand for doses 4 times a day in 24 hours. Of hydromorphone 109 micro g every 4 hours Coding Level of Care Code Est Pt Level 3 (18310) Procedure Only Diagnoses Retrolisthesis of vertebrae M43.10 Chronic pain syndrome G89.4 Disc degeneration, lumbar M51.36 Degeneration, intervertebral disc, cervical M50.30 Spondylosis, lumbar, with myelopathy M47.16 Spondylosis of cervical joint without myelopathy M47.812 Spondylosis of lumbar region without myelopathy or radiculopathy M47.816
[2024-02-13 15:33] VITALS: BP 150/72; PULSE 82; RESP 16; O2SAT 96; BMI 31.0
== END 2024-02-13 15:09 | disposition home or self-care (01) ==
PROVIDERS: PCP Internal Medicine; Visit Provider Anesthesiology
DX: M43.10 Spondylolisthesis, site unspecified (principal); G89.4 Chronic pain syndrome; M51.36 Other intervertebral disc degeneration, lumbar region; M50.30 Other cervical disc degeneration, unspecified cervical region; Z45.1 Encounter for adjustment and management of infusion pump; M47.16 Other spondylosis with myelopathy, lumbar region; M47.812 Spondylosis without myelopathy or radiculopathy, cervical region; M47.816 Spondylosis without myelopathy or radiculopathy, lumbar region
CPT/HCPCS: 95991; 99213

== ENCOUNTER → 2024-02-13 14:36 | Outpatient (BNVA) | payer MEDICARE, SELFPAY | PROVIDERS: PCP Internal Medicine; Visit Provider Anesthesiology | DX: M43.10 Spondylolisthesis, site unspecified (principal); M51.36 Other intervertebral disc degeneration, lumbar region; M50.30 Other cervical disc degeneration, unspecified cervical region; M47.16 Other spondylosis with myelopathy, lumbar region; M47.812 Spondylosis without myelopathy or radiculopathy, cervical region; G89.4 Chronic pain syndrome; Z45.1 Encounter for adjustment and management of infusion pump; Z79.899 Other long term (current) drug therapy | CPT/HCPCS: 99212 ==

== ENCOUNTER 2024-04-18 15:05 | Outpatient (AMB) | payer OTHER, SELFPAY ==
--- NOTE | 2024-04-18 15:07 | MHC.OFFVIS ---
Vital Signs 04/18/24 15:42 Height 5 ft 8 in Weight 200 lb BMI 30.4 BP 140/70 H Blood Pressure Location Lt brachial Position Sitting Respiration 16 Pulse 95 Pulse Source Pulse Oximeter Pulse Oximetry (%) 97 Oxygen Delivery Method Room Air Intake Visit Reasons: ITDD REFILL Intake Note: Patient comes in for intrathecal medication refill. Reports pain /. Allergies No Known Allergies Allergy (Verified 04/18/24 15:43) HPI Comments Details: El is in my office for intrathecal pain pump medication refill. He continues to report severe pain. He continues to state that pain pump does not help his pain. He insist on removing his pain pump. Even though we added new medication today he does not consider a trial with this medication he insists on tapering the doses down and eventually replacing it with normal saline and removing intrathecal pain pump. I explained to him that we can perform the procedure as soon as we replace the medication with saline. I recommended him to come here every week for pump adjustment. I also will turn off his PTM device and I establish today the dose of his hydromorphone at 256 micro g a day. With this dose he will receive only 20 micro g of baclofen. [facility] Medical History Obesity PTSD (post-traumatic stress disorder) GERD (gastroesophageal reflux disease) Hypercholesteremia Hypothyroid Retrolisthesis of vertebrae Spondylosis, lumbar, with myelopathy Degeneration, intervertebral disc, cervical Disc degeneration, lumbar Chronic pain syndrome Surgical History S/P insertion of spinal cord stimulator History of total left knee replacement Social History Patient Tobacco Use Status: Never used Tobacco Review of Systems Const All systems reviewed & are unremarkable except as noted in HPI and below Physical Exam Vital Signs: Last Vital Signs Pulse 95 04/18/24 15:42 Resp 16 04/18/24 15:42 BP 140/70 H 04/18/24 15:42 Pulse Ox 97 04/18/24 15:42 Oxygen Delivery Method Room Air 04/18/24 15:42 BMI result Body Mass Index 30.4 Last Vital Signs Pulse 74 06/30/23 17:30 Resp 16 06/30/23 17:30 BP 137/42 L 06/30/23 17:30 Pulse Ox 99 06/30/23 17:30 O2 Del Method Room Air 06/30/23 17:30 BMI result Body Mass Index 27.9 Const General: cooperative, comfortable, no acute distress and alert Orientation/consciousness: oriented to person, oriented to place, oriented to time and patient oriented x3 Resp Effort & Inspection: normal respiratory effort, able to speak in complete sentences, normal respiratory pattern, no audible wheezes, no cough and respiratory effort not decreased Cardio Jugular venous distension: no JVD Back/Spine/Pelvis Thoracic/Lumbar Spine: paraspinal muscle tenderness, thoracic spinal tenderness and lumbar spinal tenderness Neuro General: oriented to person, oriented to place, oriented to time and patient oriented x3 Assessment & Plan Assessment & Plan (1) Retrolisthesis of vertebrae: Code(s): M43.10 - Spondylolisthesis, site unspecified Category: Medical (2) Chronic pain syndrome: Code(s): G89.4 - Chronic pain syndrome Category: Medical (3) Disc degeneration, lumbar: Code(s): M51.36 - Other intervertebral disc degeneration, lumbar region Category: Medical (4) Degeneration, intervertebral disc, cervical: Code(s): M50.30 - Other cervical disc degeneration, unspecified cervical region Category: Medical (5) Spondylosis, lumbar, with myelopathy: Code(s): M47.16 - Other spondylosis with myelopathy, lumbar region Category: Medical Plan: The pump refill see as below. (6) Spondylosis of cervical joint without myelopathy: Code(s): M47.812 - Spondylosis without myelopathy or radiculopathy, cervical region Category: Medical Plan: Patient continues to insist on removal of the intrathecal pain pump. As soon as able taper down his medication and replace it with normal saline I will be able to schedule his procedure for the removal of the pain pump. (7) Spondylosis of lumbar region without myelopathy or radiculopathy: Code(s): M47.816 - Spondylosis without myelopathy or radiculopathy, lumbar region Category: Medical Plan Intrathecal pump refill. ? THE PATIENT CAME TODAY IN office FOR THE CHANGE OF THE MEDICATION IN his PAIN PUMP. The name and date of were verified and informed consent was obtained for the procedure. ? ?The pump was interrogated and the residual amount of fluid was found to be 7.2 mL. HE WAS POSITIONED prone on the bed AND THE AREA OF THE INTRATHECAL PUMP WAS PREPPED WITH CHLORAPREP. The fenestrated drape was sterilely applied over the area of the pump. Sterile gloves were worn and of the aspiration system was assembled containing 2 in 22 gauge noncoring needle, the needle was connected to extension tubing which was connected to the 20 cc sterile syringe. The pain pump was palpated under the skin in the patient's right buttock area. The needle was inserted through the skin and the central plug of the pain pump and fluid was aspirated. The clear fluid was going into the syringe the total amount of the fluid was 7.8 mL .. After that a new batch? of medication was obtained which was containing new concentration of Dilaudid Dilaudid 2000 micro g and Bupivacain 23 mg per ml as well as baclofen 200 micro g per mL.. The admixture was made in 20 cc syringe prepared by [facility] compounding pharmacy. The syringe was connected to the bacterial filter, and then connected to the extension tubing. After that the medication in the syringe was slowly instilled into the pump with aspirations at 15 and 5 cc gibbs.? The pump was left as previously for with simple continuous infusion left at 256.9 micro g of hydromorphone . The PTM program was terminated. Coding Level of Care Code Est Pt Level 3 (20730) Procedure Only Diagnoses Retrolisthesis of vertebrae M43.10 Chronic pain syndrome G89.4 Disc degeneration, lumbar M51.36 Degeneration, intervertebral disc, cervical M50.30 Spondylosis, lumbar, with myelopathy M47.16 Spondylosis of cervical joint without myelopathy M47.812 Spondylosis of lumbar region without myelopathy or radiculopathy M47.816
[2024-04-18 15:42] VITALS: BP 140/70; PULSE 95; RESP 16; O2SAT 97; BMI 30.4
== END 2024-04-18 16:02 | disposition home or self-care (01) ==
PROVIDERS: PCP Internal Medicine; Visit Provider Anesthesiology
DX: G89.4 Chronic pain syndrome (principal); M43.10 Spondylolisthesis, site unspecified; M51.36 Other intervertebral disc degeneration, lumbar region; M50.30 Other cervical disc degeneration, unspecified cervical region; Z45.1 Encounter for adjustment and management of infusion pump; M47.16 Other spondylosis with myelopathy, lumbar region; M47.812 Spondylosis without myelopathy or radiculopathy, cervical region; M47.816 Spondylosis without myelopathy or radiculopathy, lumbar region
CPT/HCPCS: 95991; 99213

== ENCOUNTER → 2024-04-18 15:05 | Outpatient (BNVA) | payer OTHER, MEDICARE, SELFPAY | PROVIDERS: PCP Internal Medicine; Visit Provider Anesthesiology | DX: Z45.89 Encounter for adjustment and management of other implanted devices (principal); M43.10 Spondylolisthesis, site unspecified; M51.36 Other intervertebral disc degeneration, lumbar region; M50.30 Other cervical disc degeneration, unspecified cervical region; M47.16 Other spondylosis with myelopathy, lumbar region; M47.812 Spondylosis without myelopathy or radiculopathy, cervical region; M47.816 Spondylosis without myelopathy or radiculopathy, lumbar region; G89.4 Chronic pain syndrome | CPT/HCPCS: 99212 ==

== ENCOUNTER 2024-04-26 14:27 | Outpatient (AMB) | payer OTHER, SELFPAY ==
--- NOTE | 2024-04-26 14:32 | A.OFFVIS_ITS ---
Vital Signs 04/26/24 14:46 Height 5 ft 8 in Weight 200 lb BMI 30.4 BP 158/72 H Blood Pressure Location Lt brachial Position Sitting Respiration 14 Pulse 68 Pulse Source Pulse Oximeter Pulse Oximetry (%) 96 Oxygen Delivery Method Room Air Intake Visit Reasons: pain pump adjustment Intake Note: Patient comes in for pain pump adjustment. Reports pain 04/03. Allergies No Known Allergies Allergy (Verified 04/26/24 14:47) HPI Comments Details: El is in my office for intrathecal pain pump medication refill. He continues to report severe pain. He continues to state that pain pump does not help his pain. He insist on removing his pain pump. He reports addition of baclofen did not change level of his pain. His pump was interrogated today and the dose was changed from 256 micro g of hydromorphone to 146 micro g of hydromorphone. Corresponding doses of the baclofen and gabapentin also were decreased. We probably would need 4 more weeks to drive this medications down and then fill up his pump with normal saline. When we will fill up the pump with normal saline I will schedule him for explantation of the intrathecal pain pump. The nature of the procedure was explained to the patient. Patient was informed that the intrathecal catheter will stay behind but it will not affect the quality of his life. [facility] Medical History Obesity PTSD (post-traumatic stress disorder) GERD (gastroesophageal reflux disease) Hypercholesteremia Hypothyroid Retrolisthesis of vertebrae Spondylosis, lumbar, with myelopathy Degeneration, intervertebral disc, cervical Disc degeneration, lumbar Chronic pain syndrome Surgical History S/P insertion of spinal cord stimulator History of total left knee replacement Social History Patient Tobacco Use Status: Never used Tobacco Review of Systems Const All systems reviewed & are unremarkable except as noted in HPI and below Physical Exam Vital Signs: Last Vital Signs Pulse 68 04/26/24 14:46 Resp 14 04/26/24 14:46 BP 158/72 H 04/26/24 14:46 Pulse Ox 96 04/26/24 14:46 Oxygen Delivery Method Room Air 04/26/24 14:46 BMI result Body Mass Index 30.4 Last Vital Signs Pulse 74 06/30/23 17:30 Resp 16 06/30/23 17:30 BP 137/42 L 06/30/23 17:30 Pulse Ox 99 06/30/23 17:30 O2 Del Method Room Air 06/30/23 17:30 BMI result Body Mass Index 27.9 Const General: cooperative, comfortable, no acute distress and alert Orientation/consciousness: oriented to person, oriented to place, oriented to time and patient oriented x3 Resp Effort & Inspection: normal respiratory effort, able to speak in complete sentences, normal respiratory pattern, no audible wheezes, no cough and respiratory effort not decreased Cardio Jugular venous distension: no JVD Back/Spine/Pelvis Thoracic/Lumbar Spine: paraspinal muscle tenderness, thoracic spinal tenderness and lumbar spinal tenderness Neuro General: oriented to person, oriented to place, oriented to time and patient oriented x3 Assessment & Plan Assessment & Plan (1) Retrolisthesis of vertebrae: Code(s): M43.10 - Spondylolisthesis, site unspecified Category: Medical (2) Chronic pain syndrome: Code(s): G89.4 - Chronic pain syndrome Category: Medical (3) Disc degeneration, lumbar: Code(s): M51.36 - Other intervertebral disc degeneration, lumbar region Category: Medical (4) Degeneration, intervertebral disc, cervical: Code(s): M50.30 - Other cervical disc degeneration, unspecified cervical region Category: Medical (5) Spondylosis, lumbar, with myelopathy: Code(s): M47.16 - Other spondylosis with myelopathy, lumbar region Category: Medical Plan: The pump refill see as below. (6) Spondylosis of cervical joint without myelopathy: Code(s): M47.812 - Spondylosis without myelopathy or radiculopathy, cervical region Category: Medical Plan: Patient continues to insist on removal of the intrathecal pain pump. As soon as able taper down his medication and replace it with normal saline I will be able to schedule his procedure for the removal of the pain pump. (7) Spondylosis of lumbar region without myelopathy or radiculopathy: Code(s): M47.816 - Spondylosis without myelopathy or radiculopathy, lumbar region Category: Medical Plan Intrathecal pain pump interrogation and dose adjustment. The patient pain pump was interrogated and the dose was changed from 256 micro g of hydromorphone a day to 146 micro g of hydromorphone a day. I presume that will take us 4 more weeks to drive this level of the medication to nonsignificant numbers and then we will filled his pump was normal saline. Coding Level of Care Code Est Pt Level 3 (26140) Procedure Only Diagnoses Retrolisthesis of vertebrae M43.10 Chronic pain syndrome G89.4 Disc degeneration, lumbar M51.36 Degeneration, intervertebral disc, cervical M50.30 Spondylosis, lumbar, with myelopathy M47.16 Spondylosis of cervical joint without myelopathy M47.812 Spondylosis of lumbar region without myelopathy or radiculopathy M47.816
[2024-04-26 14:46] VITALS: BP 158/72; PULSE 68; RESP 14; O2SAT 96; BMI 30.4
== END 2024-04-26 14:42 | disposition home or self-care (01) ==
PROVIDERS: PCP Internal Medicine; Referring Provider Internal Medicine; Visit Provider Anesthesiology
DX: M43.10 Spondylolisthesis, site unspecified (principal); G89.4 Chronic pain syndrome; M50.30 Other cervical disc degeneration, unspecified cervical region; Z45.1 Encounter for adjustment and management of infusion pump; M47.16 Other spondylosis with myelopathy, lumbar region; M47.812 Spondylosis without myelopathy or radiculopathy, cervical region; M47.816 Spondylosis without myelopathy or radiculopathy, lumbar region
CPT/HCPCS: 95991; 99213

== ENCOUNTER → 2024-04-26 14:27 | Outpatient (BNVA) | payer OTHER, MEDICARE, SELFPAY | PROVIDERS: PCP Internal Medicine; Visit Provider Anesthesiology | DX: Z45.89 Encounter for adjustment and management of other implanted devices (principal); M43.10 Spondylolisthesis, site unspecified; M50.30 Other cervical disc degeneration, unspecified cervical region; M51.360 Other intervertebral disc degeneration, lumbar region with discogenic back pain only; M47.16 Other spondylosis with myelopathy, lumbar region; M47.812 Spondylosis without myelopathy or radiculopathy, cervical region; M47.816 Spondylosis without myelopathy or radiculopathy, lumbar region; G89.4 Chronic pain syndrome | CPT/HCPCS: 99212 ==

== ENCOUNTER 2024-05-03 15:12 | Outpatient (AMB) | payer OTHER, MEDICARE, SELFPAY ==
--- NOTE | 2024-05-03 15:12 | MHC.OFFVIS ---
Vital Signs 05/03/24 15:19 Height 5 ft 8 in Weight 200 lb BMI 30.4 BP 146/90 H Blood Pressure Location Lt brachial Position Sitting Respiration 16 Pulse 113 H Pulse Source Pulse Oximeter Pulse Oximetry (%) 99 Oxygen Delivery Method Room Air Intake Visit Reasons: Pain Pump Adjustment Intake Note: Patient comes in for pump adjustment. Reports pain 01/01. Allergies No Known Allergies Allergy (Verified 05/03/24 15:20) HPI Comments Details: El is in my office for intrathecal pain pump medication refill. He continues to report severe pain. He continues to state that pain pump does not help his pain. He insist on removing his pain pump. He reports addition of baclofen did not change level of his pain. His pump was interrogated today again and the dose was changed from 146 micro g of hydromorphone to 96 micro g of hydromorphone a day this corresponds to 9.6 micro g of baclofen day. I believe with oral doses of baclofen next time I can stop his infusion completely and replace his pump with normal saline. I will schedule him at the next appointment in 2 weeks for pump removal. I will send prescription of baclofen just in case however I do not believe that such a small dose of baclofen intrathecally will affect his level of spasticity or can lead to severe spasticity anyway. Just to be on the safer side I will prescribe baclofen for him. [facility] Medical History Obesity PTSD (post-traumatic stress disorder) GERD (gastroesophageal reflux disease) Hypercholesteremia Hypothyroid Retrolisthesis of vertebrae Spondylosis, lumbar, with myelopathy Degeneration, intervertebral disc, cervical Disc degeneration, lumbar Chronic pain syndrome Surgical History S/P insertion of spinal cord stimulator History of total left knee replacement Social History Patient Tobacco Use Status: Never used Tobacco Review of Systems Const All systems reviewed & are unremarkable except as noted in HPI and below Physical Exam Vital Signs: Last Vital Signs Pulse 113 H 05/03/24 15:19 Resp 16 05/03/24 15:19 BP 146/90 H 05/03/24 15:19 Pulse Ox 99 05/03/24 15:19 Oxygen Delivery Method Room Air 05/03/24 15:19 BMI result Body Mass Index 30.4 Last Vital Signs Pulse 74 06/30/23 17:30 Resp 16 06/30/23 17:30 BP 137/42 L 06/30/23 17:30 Pulse Ox 99 06/30/23 17:30 O2 Del Method Room Air 06/30/23 17:30 BMI result Body Mass Index 27.9 Const General: cooperative, comfortable, no acute distress and alert Orientation/consciousness: oriented to person, oriented to place, oriented to time and patient oriented x3 Resp Effort & Inspection: normal respiratory effort, able to speak in complete sentences, normal respiratory pattern, no audible wheezes, no cough and respiratory effort not decreased Cardio Jugular venous distension: no JVD Back/Spine/Pelvis Thoracic/Lumbar Spine: paraspinal muscle tenderness, thoracic spinal tenderness and lumbar spinal tenderness Neuro General: oriented to person, oriented to place, oriented to time and patient oriented x3 Assessment & Plan Assessment & Plan (1) Retrolisthesis of vertebrae: Code(s): M43.10 - Spondylolisthesis, site unspecified Category: Medical (2) Chronic pain syndrome: Code(s): G89.4 - Chronic pain syndrome Category: Medical (3) Disc degeneration, lumbar: Code(s): M51.36 - Other intervertebral disc degeneration, lumbar region Category: Medical (4) Degeneration, intervertebral disc, cervical: Code(s): M50.30 - Other cervical disc degeneration, unspecified cervical region Category: Medical (5) Spondylosis, lumbar, with myelopathy: Code(s): M47.16 - Other spondylosis with myelopathy, lumbar region Category: Medical Plan: The pump refill see as below. (6) Spondylosis of cervical joint without myelopathy: Code(s): M47.812 - Spondylosis without myelopathy or radiculopathy, cervical region Category: Medical Plan: Patient continues to insist on removal of the intrathecal pain pump. As soon as able taper down his medication and replace it with normal saline I will be able to schedule his procedure for the removal of the pain pump. Next time I will fill up his pump with saline and schedule him for pump removal. Today I will prescribe him baclofen oral. (7) Spondylosis of lumbar region without myelopathy or radiculopathy: Code(s): M47.816 - Spondylosis without myelopathy or radiculopathy, lumbar region Category: Medical Plan Intrathecal pain pump interrogation and dose adjustment. The patient pain pump was interrogated and the dose was changed from 146 micro g of hydromorphone a day to 96 micro g of hydromorphone a day. This results in 9.6 micro g of baclofen a day. Medications: New baclofen 10 mg PO TID 90 tabs 6RF 30 days Coding Level of Care Code Est Pt Level 3 (79532) Procedure Only Diagnoses Retrolisthesis of vertebrae M43.10 Chronic pain syndrome G89.4 Disc degeneration, lumbar M51.36 Degeneration, intervertebral disc, cervical M50.30 Spondylosis, lumbar, with myelopathy M47.16 Spondylosis of cervical joint without myelopathy M47.812 Spondylosis of lumbar region without myelopathy or radiculopathy M47.816
[2024-05-03 15:19] VITALS: BP 146/90; PULSE 113; RESP 16; O2SAT 99; BMI 30.4
== END 2024-05-03 15:32 | disposition home or self-care (01) ==
PROVIDERS: PCP Internal Medicine; Visit Provider Anesthesiology
DX: M43.10 Spondylolisthesis, site unspecified (principal); G89.4 Chronic pain syndrome; M51.369 Other intervertebral disc degeneration, lumbar region without mention of lumbar back pain or lower extremity pain; M50.30 Other cervical disc degeneration, unspecified cervical region; Z45.1 Encounter for adjustment and management of infusion pump; M47.16 Other spondylosis with myelopathy, lumbar region; M47.812 Spondylosis without myelopathy or radiculopathy, cervical region; M47.816 Spondylosis without myelopathy or radiculopathy, lumbar region
CPT/HCPCS: 62368; 99213

== ENCOUNTER → 2024-05-03 15:12 | Outpatient (BNVA) | payer OTHER, MEDICARE, SELFPAY | PROVIDERS: PCP Internal Medicine; Visit Provider Anesthesiology | DX: M43.10 Spondylolisthesis, site unspecified (principal); M51.369 Other intervertebral disc degeneration, lumbar region without mention of lumbar back pain or lower extremity pain; M50.30 Other cervical disc degeneration, unspecified cervical region; M47.16 Other spondylosis with myelopathy, lumbar region; M47.812 Spondylosis without myelopathy or radiculopathy, cervical region; G89.4 Chronic pain syndrome; Z45.1 Encounter for adjustment and management of infusion pump | CPT/HCPCS: 62368; 99212 ==

== ENCOUNTER 2024-05-21 13:46 | Outpatient (REF) | payer OTHER, MEDICARE, SELFPAY | END 2024-05-21 13:47 | disposition home or self-care (01) | LOC: HO.MRI 13:46 | PROVIDERS: PCP Registered Nurse; Visit Provider Hospitalist | DX: M54.51 Vertebrogenic low back pain (principal) | CPT/HCPCS: 99212 ==

== ENCOUNTER 2024-05-21 14:38 | Outpatient (AMB) | payer OTHER, SELFPAY ==
[2024-05-21 14:58] VITALS: BP 154/72; PULSE 77; O2SAT 97; BMI 29.6
--- NOTE | 2024-05-21 14:58 | MHC.OFFVIS ---
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 He continues to report severe pain. He continues to state that pain pump does not help his pain. He insist on removing his pain pump. He reports addition of baclofen did not change level of his pain. His pump was interrogated today again and it was changed on minimal rate. The total dose of baclofen is 1 micro g per day. I do not believe it changes anything. Patient is on oral baclofen anyway. He will be scheduled for the pain pump explantation. The pump will be removed as soon as possible. He is requesting me to refer him to a neurosurgeon to remove spinal cord stimulator from his thoracic spine as well. This is surgical implanted spinal cord stimulator -paddle SCS. Therefore surgical intervention as needed to remove this machine. [facility] Medical History Obesity PTSD (post-traumatic stress disorder) GERD (gastroesophageal reflux disease) Hypercholesteremia Hypothyroid Retrolisthesis of vertebrae Spondylosis, lumbar, with myelopathy Degeneration, intervertebral disc, cervical Disc degeneration, lumbar Chronic pain syndrome Surgical History S/P insertion of spinal cord stimulator History of total left knee replacement Social History Patient Tobacco Use Status: Never used Tobacco Review of Systems Const All systems reviewed & are unremarkable except as noted in HPI and below Physical Exam Vital Signs: Last Vital Signs Pulse 77 05/21/24 14:58 BP 154/72 H 05/21/24 14:58 Pulse Ox 97 05/21/24 14:58 Oxygen Delivery Method Room Air 05/21/24 14:58 BMI result Body Mass Index 29.6 Last Vital Signs Pulse 74 06/30/23 17:30 Resp 16 06/30/23 17:30 BP 137/42 L 06/30/23 17:30 Pulse Ox 99 06/30/23 17:30 O2 Del Method Room Air 06/30/23 17:30 BMI result Body Mass Index 27.9 Const General: cooperative, comfortable, no acute distress and alert Orientation/consciousness: oriented to person, oriented to place, oriented to time and patient oriented x3 Resp Effort & Inspection: normal respiratory effort, able to speak in complete sentences, normal respiratory pattern, no audible wheezes, no cough and respiratory effort not decreased Cardio Jugular venous distension: no JVD Back/Spine/Pelvis Thoracic/Lumbar Spine: paraspinal muscle tenderness, thoracic spinal tenderness and lumbar spinal tenderness Neuro General: oriented to person, oriented to place, oriented to time and patient oriented x3 Assessment & Plan Assessment & Plan (1) Retrolisthesis of vertebrae: Code(s): M43.10 - Spondylolisthesis, site unspecified Category: Medical (2) Chronic pain syndrome: Code(s): G89.4 - Chronic pain syndrome Category: Medical (3) Disc degeneration, lumbar: Code(s): M51.36 - Other intervertebral disc degeneration, lumbar region Category: Medical (4) Degeneration, intervertebral disc, cervical: Code(s): M50.30 - Other cervical disc degeneration, unspecified cervical region Category: Medical (5) Spondylosis, lumbar, with myelopathy: Code(s): M47.16 - Other spondylosis with myelopathy, lumbar region Category: Medical Plan: The pump refill see as below. (6) Spondylosis of cervical joint without myelopathy: Code(s): M47.812 - Spondylosis without myelopathy or radiculopathy, cervical region Category: Medical Plan: Patient continues to insist on removal of the intrathecal pain pump. As soon as able taper down his medication and replace it with normal saline I will be able to schedule his procedure for the removal of the pain pump. Next time I will fill up his pump with saline and schedule him for pump removal. Today I will prescribe him baclofen oral. (7) Spondylosis of lumbar region without myelopathy or radiculopathy: Code(s): M47.816 - Spondylosis without myelopathy or radiculopathy, lumbar region Category: Medical Plan Intrathecal pain pump interrogation and dose adjustment. The patient pain pump was interrogated and the dose was changed from 96 micro g of hydromorphone to 12 micro g of hydromorphone. Corresponding dose of baclofen was changed from 9.6 micro g a day to 1.23 micro g per day Coding Level of Care Code Est Pt Level 3 (81018) Procedure Only Diagnoses Retrolisthesis of vertebrae M43.10 Chronic pain syndrome G89.4 Disc degeneration, lumbar M51.36 Degeneration, intervertebral disc, cervical M50.30 Spondylosis, lumbar, with myelopathy M47.16 Spondylosis of cervical joint without myelopathy M47.812 Spondylosis of lumbar region without myelopathy or radiculopathy M47.816
== END 2024-05-21 15:22 | disposition home or self-care (01) ==
LOC: HO.PMC 14:39
PROVIDERS: PCP Internal Medicine; Visit Provider Anesthesiology
DX: M43.10 Spondylolisthesis, site unspecified (principal); G89.4 Chronic pain syndrome; M51.369 Other intervertebral disc degeneration, lumbar region without mention of lumbar back pain or lower extremity pain; M50.30 Other cervical disc degeneration, unspecified cervical region; Z45.1 Encounter for adjustment and management of infusion pump; M47.16 Other spondylosis with myelopathy, lumbar region; M47.812 Spondylosis without myelopathy or radiculopathy, cervical region; M47.816 Spondylosis without myelopathy or radiculopathy, lumbar region
CPT/HCPCS: 95991; 99213

== ENCOUNTER 2024-07-26 15:29 | Outpatient (AMB) | payer OTHER, SELFPAY ==
[2024-07-26 15:42] VITALS: BP 177/84; PULSE 95; O2SAT 96; BMI 29.4
--- NOTE | 2024-07-26 15:42 | A.OFFVIS_ITS ---
Vital Signs 07/26/24 15:42 Height 5 ft 8 in Weight 193 lb 8 oz BMI 29.4 BP 177/84 H Blood Pressure Location Lt brachial Position Sitting Pulse 95 Pulse Source Pulse Oximeter Pulse Oximetry (%) 96 Oxygen Delivery Method Room Air Intake Visit Reasons: ITDD REFILL Allergies No Known Allergies Allergy (Verified 07/26/24 15:44) HPI Comments Details: El is in my office for intrathecal pain pump medication refill. He now reports that his pain became unbearable, he changed hus mind about removal of his pain pump. The pain pump was interrogated and he has 16.7 mls of the admixture of dilaudid 2000 mcg per ml, bupivacaine 23 mg per ml and baclofen 200 mcg per ml. Therefore he has enough medication to try escalation of his doses of the medications, he for now was on minimal rate of the medication receiving only 12.3 mcg of hydromorphone a day. We decided to reinstate a continuous rate of the medication the minimal rate with this concentration would be 96.1 mcg per ml. I will schedule him for an appointment to escalate his medications further. The medication we ordered for the refill today was admixture of hydromorphone and bupivacain without baclofen. We waisted this medication, I will continue to order medications admixture with increasing doses of baclofen. 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 He requested me to refer him to a GI specialist with [facility]. [facility] Medical History Obesity PTSD (post-traumatic stress disorder) GERD (gastroesophageal reflux disease) Hypercholesteremia Hypothyroid Retrolisthesis of vertebrae Spondylosis, lumbar, with myelopathy Degeneration, intervertebral disc, cervical Disc degeneration, lumbar Chronic pain syndrome Surgical History S/P insertion of spinal cord stimulator History of total left knee replacement Social History Patient Tobacco Use Status: Never used Tobacco Review of Systems Const All systems reviewed & are unremarkable except as noted in HPI and below Physical Exam Vital Signs: Last Vital Signs Pulse 95 07/26/24 15:42 BP 177/84 H 07/26/24 15:42 Pulse Ox 96 07/26/24 15:42 Oxygen Delivery Method Room Air 07/26/24 15:42 BMI result Body Mass Index 29.4 Last Vital Signs Pulse 74 06/30/23 17:30 Resp 16 06/30/23 17:30 BP 137/42 L 06/30/23 17:30 Pulse Ox 99 06/30/23 17:30 O2 Del Method Room Air 06/30/23 17:30 BMI result Body Mass Index 27.9 Const General: cooperative, comfortable, no acute distress and alert Orientation/consciousness: oriented to person, oriented to place, oriented to time and patient oriented x3 Resp Effort & Inspection: normal respiratory effort, able to speak in complete sentences, normal respiratory pattern, no audible wheezes, no cough and respir atory effort not decreased Cardio Jugular venous distension: no JVD Back/Spine/Pelvis Thoracic/Lumbar Spine: paraspinal muscle tenderness, thoracic spinal tenderness and lumbar spinal tenderness Neuro General: oriented to person, oriented to place, oriented to time and patient oriented x3 Assessment & Plan Assessment & Plan (1) Retrolisthesis of vertebrae: Code(s): M43.10 - Spondylolisthesis, site unspecified Category: Medical (2) Chronic pain syndrome: Code(s): G89.4 - Chronic pain syndrome Category: Medical (3) Disc degeneration, lumbar: Code(s): M51.36 - Other intervertebral disc degeneration, lumbar region Category: Medical (4) Degeneration, intervertebral disc, cervical: Code(s): M50.30 - Other cervical disc degeneration, unspecified cervical region Category: Medical (5) Spondylosis, lumbar, with myelopathy: Code(s): M47.16 - Other spondylosis with myelopathy, lumbar region Category: Medical Plan: The pump adjustment see as below. (6) Spondylosis of cervical joint without myelopathy: Code(s): M47.812 - Spondylosis without myelopathy or radiculopathy, cervical region Category: Medical Plan: He decided against removal of the pain pump and termination of the intrathecal therapy. We will start escalation of his opioid and baclofen doses again. I will schedule him for the next pump adjustment next week. (7) Spondylosis of lumbar region without myelopathy or radiculopathy: Code(s): M47.816 - Spondylosis without myelopathy or radiculopathy, lumbar region Category: Medical Plan Intrathecal pain pump interrogation and dose adjustment. The patient pain pump was interrogated and the dose was changed from 12 mcg of hydromorphone dose to 96.1 micro g of hydromorphonea a day. Corresponding dose of baclofen was changed from1.23 mcg per day to 9.6 micro g a day . Coding Level of Care Code Est Pt Level 3 (44462) Procedure Only Diagnoses Retrolisthesis of vertebrae M43.10 Chronic pain syndrome G89.4 Disc degeneration, lumbar M51.36 Degeneration, intervertebral disc, cervical M50.30 Spondylosis, lumbar, with myelopathy M47.16 Spondylosis of cervical joint without myelopathy M47.812 Spondylosis of lumbar region without myelopathy or radiculopathy M47.816
--- OUTSIDE RECORDS SUMMARY | 2024-07-26 16:54 | XMS_ITS | Encounter Summary ---
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 Automatic Name Role Phone WAYNE WHEATLEY Primary Care [...] Name Patient's Relationship to Policy [facility]) MEDICARE ADVANTAGE [facility] ([facility] Aug 25, 2001 [facility] ([facility]) [id number] [phone] DOMADRIANA SALINAS JOHN PATIENT MEDICARE ([facility]) MEDICARE (M) PART A Oct 23, 2016 PART A [id number] QUE GELLER PATIENT MEDICARE ([facility]) MEDICARE (M) PART B Oct 23, 2016 PART B [id number] QUE GELLER PATIENT MEDICARE ([facility]) MEDICARE (M) PART B Jul 25, 2011 PART B [id number] QUE GELLER PATIENT MEDICARE ([facility]) MEDICARE (M) PART B Jul 25, 2011 PART B [id number] QUE GELLER PATIENT MEDICARE (WNR) MEDICARE (M) PART B Jul 25, 2011 PART B [id number] QUE GELLER PATIENT MEDICARE (WNR) MEDICARE (M) PART A Apr 24, 2004 PART A [id number] [phone] QUE GELLER PATIENT MEDICARE (WNR) MEDICARE (M) PART A Apr 24, 2004 PART A [id number] QUE GELLER PATIENT MEDICARE (WNR) MEDICARE (M) PART A Apr 24, 2004 PART A [id number] QUE GELLER PATIENT Selected Encounter This section includes the information on record at [place] for the Encounter. Date/Time Encounter Type Encounter Description Reason Provider Source Aug 24, 2023 03:45 PM CLEAN/INSPECT MAX COMP DENT DENTAL ICD-10-CM K03.6 Deposits [accretions] on teeth NATHALY,REAGAN K IHE Encounter Template Text not used by [place] Assessments - Encounter Diagnoses This section includes the primary and secondary diagnoses documented for the Encounter. Date/Time Primary/Secondary Diagnosis Diagnosis Name Provider Source Aug 24, 2023 04:38 PM PRIMARY Deposits [accretions] on teeth NATHALY,REAGAN K [facility] Plan of Treatment: Future Appointments (+ 6 months) and Future Tests (+/- 45 days) The Plan of Treatment section includes future care activities for the patient from all [place] treatmentfacilities. This section includes future appointments and future orders which are active, pending or scheduled. Future Appointments This section includes appointments that were scheduled to occur 6 months from the date of the Encounter, up to a maximum of 20 appointments. The data comes from all [place] treatment facilities. Appointment Date/Time Appointment Type Appointme nt Facility Name Oct 05, 2023 03:00 PM AMBULATORY - MEDICINE [facility] Oct 20, 2023 03:30 PM [facility] Nov 18, 2023 02:15 [facility] Social History: Smoking Status (Most current) and Tobacco Use (All prior to encounter date) This section includes the most current, and the historical, smoking and tobacco- related health factors from the [place] facility where the Encounter took place. Current Smoking Status This section includes the most current smoking, or tobacco-related health factor, from the [place] facility where the Encounter took place. Date/Time Current Smoking Status Comment Catie thompson Mar 26, 2021 02:25 PM VA-TOBACCO NEVER USED [facility] Advance Directives: All historical and current Section Date Range: From patient's date of to the date document was created. This section includes ALL of a patient's completed or amended [place] Advance and Rescinded Directives. The entries below indicate that a directive exists for the patient, but an actual copy is not included with this document. The data comes from all [place] facilities. Date Advance Directives Provider Source Nov 04, 2016 ADVANCE DIRECTIVE RONY URRUTIA [facility] Encounter Notes: All associated encounter notes This section contains the clinical notes associated to the Encounter. Date/Time Encounter Note(s) Provider Source Aug 24, 2023 04:29 PM DENTISTRY NOTE: LOCAL TITLE: DENTAL NOTE STANDARD TITLE: DENTISTRY NOTE DATE OF NOTE: AUG 24, 2023@16:29 ENTRY DATE: AUG 24, 2023@16:38:53 AUTHOR: REAGAN ANDERSEN COSIGNER: URGENCY: STATUS: COMPLETED Patient Name: KAM GELLER, : 1950, Age: 72 Visit: S: Aug 24, 2023@15:45 CWM/NO/DENTAL/RDH1 PM. Primary PCE Diagnosis: K03.6 (Deposits [accretions] on teeth). Dental Category: 15-OPC, Class IV. Treatment Status: Maintenance. Completed Care: (D1110) DENTAL PROPHYLAXIS ADULT. DX: K03.6 Deposits [Accretions] on Teeth (D1206) TOPICAL FLUORIDE VARNISH. DX: K03.6 Deposits [Accretions] on Teeth (D1330) ORAL HYGIENE INSTRUCTION. DX: K03.6 Deposits [Accretions] on Teeth (D9994) CASE MGMT-ORAL HEALTH LIT. DX: K03.6 Deposits [Accretions] on Teeth (D9932) CLEAN/INSPECT MAX COMP DENT. DX: K03.6 Deposits [Accretions] on Teeth Periodontal Screening/Recording (PSR): X-X-X - - - 2-2-2 Dental Alerts: amoxicillin premed (2000mg) for TKR Oral Health Assessment Findings: Plaque Index: 1 - Slight Xerostomia: 0 - None Caries Risk: 2 - Moderate Oral Hygiene: 1 - Good - - - - - - - - - - - - - - - - - - - - - - - - - - - - - - TIME OUT/Safety goals were verified immediately prior to the procedure. (Correct patient, procedure, site, position) Full name and date used. STERILIZATION MONITOR IN INSTRUMENT PACK CHECKED AND CONFIRMED CC: no conerns PREMEDICATION: Patient took premed. PAST MEDICAL HISTORY: Reviewed, no contraindications for treatment. LAST RADIOGRAPHS: PA's : 07/08/23 NEW RADIOGRAPHS: Not due SOFT TISSUE SCREENING: no abnormalities noted EXAMINATION: Not due ORAL HYGIENE ASSESSMENT: generalized light plaque no stain PERIODONTAL ASSESSMENT: no calculus localized light inflammation between #27 and #28 localized very light bleeding probing depth generalized 2-3mm generalized recession Partial/Denture: Luc said denture fits very well on the top. He takes it out at night. Looks well taken care of. He wears lower partial to eat. REVIEWED ORAL HEALTH REPORT: CARIES RISK: high GUM DISEASE: low ORAL CANCER RISK: n/a DENTAL TREATMENT PROVIDED: PROPHYLAXIS - hand scaling, piezo, persian, floss TOPICAL FLUORIDE APPLICATION - Varnish PRE-RINSE WITH CREST RINSE ORAL HYGIENE INSTRUCTIONS GIVEN TO PATIENT: Luc brushes twice a day with an electric toothbrush. Discussed brushing 2 times a day for 2 minutes each and flossing daily. Discussed angling bristles into gumlines to remove plaque and bacteria. Gave end tufted brush for around crown margins. DISPOSITION: 6 MONTHS RECARE NEXT VISIT: koffi /jose cruz/ REAGAN ANDERSEN RDH [facility], DENTAL SERVICE Signed: 08/24/2023 16:38 REAGAN ANDERSEN [facility]
--- OUTSIDE RECORDS SUMMARY | 2024-07-26 16:54 | XMS_ITS | Continuity of Care Document ---
Author Name [facility] Organization [facility] Care Team Providers Care Investigation Officer Name Role Phone [facility] Unavailable Unavailable Problems Combined list of problems from Department of Defense and Veterans Affairs facilities. It does not include entries that were removed or entered in error. Problem Status Onset Date Problem Type Date of Resolution Comments Source Lumbar DXA scan result normal Active 017 Condition [facility] Knee Joint replacement Status (Prosthetic or Artificial Device) Active 003 Condition Jan 20, 2005 Entered By: SELINA ZARAGOZA Comment: Left TKR april 2003.Aug 11, 2006 Entered By: RAMON OLSON Comment: never had a L-EXT FxJan 2007 Entered By: RAMON OLSON Comment: also has OA, R Knee (eventually need TKR, R Side?) [place] Anemia Active Condition [place] Back pain (SNOMED CT 033118753) Active Condition Aug 11, 2006 Entered By: RAMON OLSON Comment: OA, L-Spine; not surg candidateJan 2006 Entered By: RAMON OLSON Comment: greater preponderance of OA (versus Discopathy) in L-SpineJan 2006 Entered By: RAMON OLSON Comment: never had a FxJan 2007 Entered By: RAMON OLSON Comment: has already seen [facility] beta thalassemia (SNOMED CT 16008225) Active Condition November 29, 2006 Entered By: JENIFER BAXTER Comment: f/u pcp [place] Callus Active Condition [place] Chronic pain Active Condition Sep 26, 2020 Entered By: RODO MEZA Comment: x-ray 10/12 mild deg changes left shoulderOct 20, 2021 Entered By: RODO MEZA Comment: 10/13 b/l subacromial CSI inj [facility] Depression (SNOMED CT 12166891) Active Condition [facility] ECG: normal sinus rhythm Active Condition Feb 18, 2017 Entered By: RODO MEZA Comment: hypertensive heart disease per echo 02/07 LVEF 65%, mod dilation left atrium,Feb 18, 2017 Entered By: RODO MEZA Comment: mild tricuspid regurgAug 2021 Entered By: RODO MEZA Comment: EKG NSR 04/20/21 EKG NSR borderline lt axis deviationOct 2021 Entered By: RODO MEZA Comment: echo report note in CPRS 05/13/22: Moderately dilated left atrium [facility] Edema Active Condition [facility] Exposure to potentially hazardous substance ([facility] [id number]) Active Condition Mar 23 Entered By: VENUS GONZALEZ Comment: Entered automatically through JONO Problem List documentation program [facility] Gastroparesis Active Condition [facility] H/O: surgery Active Condition Jul 31, 2020 Entered By: RODO MEZA Comment: Laparoscoplc Cholecystectomy and an Umbilical Hernia Repair on 07/16/[address] Celis. [facility] Heartburn (SNOMED CT 29339558) Active Condition Aug 08, 2007 Entered By: RAMON OLSON Comment: Endoscopy AUG 01: NL Study; no CA or Hawkins'sAug 2020 Entered By: RODO MEZA Comment: ? of gastroparesis per EGD 04/14/20Dec 2020 Entered By: RODO MEZA Comment: 06/23/21 mild chronic gastritis w reactive foveolar hyperrplasia, adeonomatous polyp [facility] Hip Pain Active Condition Jan 07 15 Entered By: RAMON OLSON Comment: THR, L Side SEPT 14 [place] Hyperlipidemia (SNOMED CT 99605288) Active Condition [place] Hypothyroidism (SNOMED CT 59565222) Active Condition [place] Obesity Active Condition [facility] Screening for Malignant Neoplasms of colon Active Condition Sep 03, 2008 Entered By: RAMON OLSON Comment: Colonoscopy 2005: Neg CRC; Repeat 2015 ([place])Jan 07, 2015 Entered By: RAMON OLSON Comment: pending [facility] 2014 [place] Traumatic pneumothorax Active Condition [facility] Closed fracture multiple ribs Inactive Condition 10/05/2023 [facility] Closed fracture of base of first metacarpal Inactive Condition 10/05/2023 [facility] Closed fracture of head of left radius Inactive Condition 10/05/2023 [facility] [place] [facility] Diagnosis: ICD-10-CM R10.30 Lower abdominal pain, unspecified Active Diagnosis [facility] Diagnosis: ICD-10-CM Z46.0 Encounter for fit/adjst of spectacles and contact lenses Active [facility] [place] [facility] Diagnosis: ICD-10-CM 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, bilateral, intermed dry stage Active Diagnosis [facility] [place] [facility] Diagnosis: ICD-10-CM H40.013 Open angle with borderline findings, low risk, bilateral Active Diagnosis [facility] [place] [facility] Diagnosis: ICD-10-CM K03.6 Deposits [accretions] on teeth Active Diagnosis [facility] [place] [facility] Diagnosis: ICD-10-CM L60.3 Nail dystrophy [facility] Diagnosis: ICD-10-CM D64.9 Anemia, unspecified Active Diagnosis [place] Diagnosis: ICD-10-CM M54.50 Low back pain, unspecified Active Diagnosis [facility] [place] [facility] Diagnosis: ICD-10-CM R11.2 Nausea with vomiting, unspecified Active Diagnosis [place] Diagnosis: ICD-10-CM K08.9 Disorder of teeth and supporting structures, unspecified Active Diagnosis [facility] [place] [facility] Diagnosis: ICD-10-CM S27.0XXD Traumatic pneumothorax, subsequent encounter Active Diagnosis [place] Medications Combined list of outpatient medications from Department of Defense and Veterans Affairs facilities.Medications provided include 1) outpatient medications from the last 15 months, and 2) patient-reported medications. Medication Details Route Status Patient Instructions Prescription Expires Prescription Number Last Dispense Date Ordering Provider Order Date Order Qty Source AMOXICILLIN TRIHYDRATE 500MG CAP TAKE FOUR CAPSULES BY MOUTH ONE TIME ONE HOUR PRIOR TO DENTAL APPOINTM ENTS ORAL 05/06/2024 [id number] FRED SCHAFER 2022 4 [place] BISACODYL 5MG TAB,EC TAKE FOUR TABLETS BY MOUTH ONCE FOR BOWELS - LAXATIVE ORAL 02/12/2024 [id number] Pietro GIORDANO P JR 2023 4 [place] CHOLECALCIF ODALIS 25MCG (1,000UNIT) TAB TAKE ONE TABLET BY MOUTH ONCE DAILY FOR VITAMIN SUPPLEME NTATION ORAL ACTIVE 11/16/2024 [id number] 4 Joao WHEATLEY 2023 90 [place] CHOLESTYRAM INE 4GM/9GM PWDR,PKT TAKE 1 PACKET BY MOUTH ONCE DAILY ORAL ACTIVE 11/11/2024 [id number] Viviana GATES MY R 2023 60 [facility] CYANOCOBALA MIN 1000MCG TAB TAKE ONE TABLET BY MOUTH ONCE DAILY FOR VITAMIN SUPPLEME NTATION ORAL ACTIVE 10/20/2024 [id number] EDISON BAIN 2023 90 [facility] CYANOCOBALA MIN 1000MCG TAB TAKE ONE TABLET BY MOUTH ONCE DAILY FOR VITAMIN SUPPLEME NTATION ORAL DISCONT INUED 09/29/2023 [id number] EDISON BAIN 2022 90 [facility] CYCLOBENZAP RINE HCL 5MG TAB TAKE 1-2 TABLETS BY MOUTH THREE TIMES DAILY NEEDED ORAL 10/21/2023 [id number] KASSANDRA SUMMERS 2022 84 [place] DICYCLOMINE HCL 20MG TAB TAKE ONE TABLET BY MOUTH TWICE DAILY NEEDED (FOR IRRITABL E BOWEL SYNDROME ) ORAL DISCONT INUED BY PROVIDE R 07/22/2024 [id number] 4 Joao WHEATLEYD A 2023 40 [place] DICYCLOMINE HCL 20MG TAB TAKE ONE TABLET BY MOUTH TWICE DAILY NEEDED (FOR IRRITABL E BOWEL SYNDROME ) ORAL DISCONT INUED 06/29/2024 [id number] Joao WHEATLEY AVID A 2023 40 [place] DOCUSATE NA 50MG/SENNOS IDES 8.6MG TAB TAKE 1 TABLET BY MOUTH TWICE DAILY FOR CONSTIPA TION ORAL ACTIVE 05/29/2025 [id number] 4 Joao WHEATLEY AVID A 2023 200 [place] FERROUS SO4 325MG TAB TAKE ONE TABLET BY MOUTH ONCE DAILY TO SUPPLEME NT IRON ORAL ACTIVE 05/29/2025 [id number] 4 Joao WHEATLEYD A 2023 100 [place] FERROUS SO4 325MG TAB TAKE ONE TABLET BY MOUTH ONCE DAILY TO SUPPLEME NT IRON ORAL DISCONT INUED 04/15/2025 [id number] RA DARIAN BOGGS 2023 100 [facility] FERROUS SO4 325MG TAB TAKE ONE TABLET BY MOUTH ONCE DAILY TO SUPPLEME NT IRON ORAL DISCONT INUED 07/22/2024 [id number] KELVIN BYRD 2023 100 [place] LEVOTHYROXI NE NA 125MCG TAB (SYNTHROID) TAKE ONE TABLET BY MOUTH EVERY MORNING 30 MINUTES BEFORE BREAKFAS T FOR THYROID TAKE ON AN EMPTY STOMACH WITH A FULL GLASS OF WATER ORAL ACTIVE 05/29/2025 [id number] 4 Joao WHEATLEYD A 2023 90 [place] LEVOTHYROXI NE NA 125MCG TAB (SYNTHROID) TAKE ONE TABLET BY MOUTH EVERY MORNING 30 MINUTES BEFORE BREAKFAS T FOR THYROID TAKE ON AN EMPTY STOMACH WITH A FULL GLASS OF WATER ORAL DISCONT INUED 08/22/2024 [id number] KELVIN BYRD 2023 90 [place] LIDOCAINE 5% OINT,TOP APPLY SMALL AMOUNT TOPICALL Y ONCE DAILY NEEDED FOR ITCHING TOPICA L ACTIVE 05/29/2025 [id number] 4 Joao WHEATLEY A 2023 70 [place] LIDOCAINE 5% OINT,TOP APPLY SMALL AMOUNT TOPICALL Y ONCE DAILY NEEDED FOR ITCHING TOPICA L DISCONT INUED 01/31/2025 [id number] Joao WHEATLEY A 2023 70 [facility] [place] LORAZEPAM 0.5MG TAB TAKE ONE TABLET BY MOUTH ONCE DAILY NEEDED ORAL ACTIVE SHELDON BANEGAS [place] 2021 [facility] [place] MAGNESIUM OXIDE 420MG TAB TAKE ONE TABLET BY MOUTH ONCE DAILY ORAL ACTIVE 11/09/2024 [id number] EDISON BAIN 2023 90 [facility] MARIJUANA MISCELLANEO US USE DIRECTED NOT APPLIC ABLE ACTIVE [place] MULTIVIT/OP HTH AREDS2/LUTE IN/ZEAXANTH IN CAP/TAB TAKE 1 CAPSULE BY MOUTH TWICE DAILY IN THE MORNING AND EVENING, WITH FOOD ORAL ACTIVE 05/09/2025 [id number] 5 LISA CADENA 2023 120 [facility] MULTIVIT/OP HTH AREDS2/LUTE IN/ZEAXANTH IN CAP/TAB TAKE 1 CAPSULE BY MOUTH TWICE DAILY IN THE MORNING AND EVENING, WITH FOOD ORAL DISCONT INUED BY PB R 08/22/2024 [id number] 4 KELVIN BYRD 2023 120 [place] MULTIVIT/OP HTH AREDS2/LUTE IN/ZEAXANTH IN CAP/TAB TAKE 1 CAPSULE BY MOUTH TWICE DAILY IN THE MORNING AND EVENING, WITH FOOD ORAL DISCONT INUED 06/15/2023 [id number] FRED SCHAFER 2021 120 [place] NORTRIPTYLI NE HCL 10MG CAP TAKE ONE CAPSULE BY MOUTH AT BEDTIME FOR ABDOMINA L PAIN ORAL ACTIVE 07/04/2025 [id number] 4 ALICEBRITTSTANISLAV 2023 90 [facility] NORTRIPTYLI NE HCL 10MG CAP TAKE 1 CAPSULE BY MOUTH AT BEDTIME ORAL ACTIVE Joao WHEATLEYD A 2023 [facility] [place] OMEPRAZOLE 20MG CAP,EC TAKE ONE CAPSULE BY MOUTH TWICE DAILY NEEDED FOR GASTROES OPHAGEAL REFLUX DISEASE ORAL 02/25/2024 [id number] GILMAR,FRED DAWNA S 2022 180 [place] PANTOPRAZOL E NA 40MG TAB,EC TAKE ONE TABLET BY MOUTH EVERY MORNING 30 MINUTES BEFORE BREAKFAS T FOR EXCESSIV E PRODUCTI ON OF STOMACH ACID ORAL SUSPEND ED 05/31/2025 [id number] Joao WHEATLEY A 2023 90 [facility] [place] PANTOPRAZOL E NA 40MG TAB,EC TAKE ONE TABLET BY MOUTH ONCE DAILY ORAL DISCONT INUED (EDIT) 05/29/2025 [id number] 4 Joao WHEATLEY A [facility] PANTOP[facility] NA 40MG TAB,EC TAKE ONE TABLET BY MOUTH ONCE DAILY ORAL DISCONT INUED 04/12/2025 [id number] 4 CANDELARIO HICKMAN 2023 30 [facility] PANTOPRAZOL E NA 40MG TAB,EC TAKE ONE TABLET BY MOUTH TWICE DAILY ORAL DISCONT INUED 12/30/2024 [id number] 4 Viviana GATES 2023 60 [facility] PAROXETINE HCL 40MG TAB TAKE ONE TABLET BY MOUTH DAILY ORAL ACTIVE 01/31/2025 [id number] 4 Joao WHEATLEY A 2023 90 [facility] PAROXETINE HCL 40MG TAB TAKE ONE TABLET BY MOUTH DAILY ORAL DISCONT INUED 01/01/2024 [id number] FRED SCHAFER S 2022 90 [place] POLYETHYLEN E GLYCOL 3350 PWDR,ORAL TAKE CONTENTS OF BOTTLE BY MOUTH ONCE DIRECTED BY PROVIDER - DISSOLVE CONTENTS BEFORE DRINKING ORAL 02/12/2024 [id number] Pietro GIORDANO P JR 2023 476 [facility] PREGABALIN 150MG CAP,ORAL TAKE ONE CAPSULE BY MOUTH THREE TIMES A DAY FOR NERVE PAIN DO NOT TAKE WITH GABAPENT IN DOSE INCREASE ORAL 09/07/2023 [id number] FRED SCHAFER 2022 90 [facility] [place] PROBIOTIC (CULTURELLE DIGESTIVE DAILY) CAP/TAB TAKE BY MOUTH ONCE DAILY ORAL ACTIVE SHELDON BANEGAS 2020 [facility] [place] PROCHLORPER AZINE MALEATE 10MG TAB TAKE ONE TABLET BY MOUTH TWICE A DAY NEEDED FOR NAUSEA AND VOMITING ORAL ACTIVE 08/02/2024 [id number] 4 KONBRITT,PET ER G 2023 60 [facility] PROCHLORPER AZINE MALEATE 10MG TAB TAKE ONE TABLET BY MOUTH TWICE DAILY NEEDED FOR NAUSEA AND VOMITING ORAL DISCONT INUED 06/29/2024 [id number] 4 Joao WHEATLEYD A 2023 60 [facility] [place] PROCHLORPER AZINE MALEATE 10MG TAB TAKE ONE TABLET BY MOUTH TWICE DAILY NEEDED FOR NAUSEA AND VOMITING ORAL 07/22/2024 [id number] 4 Joao WHEATLEY AVID A 2023 60 [facility] [place] PSYLLIUM PWDR,ORAL TAKE 2 TEASPOON FULS BY MOUTH ONCE DAILY FOR CONSTIPA TION (MIX WITH AT LEAST 8OZ. OF WATER OR OTHER FLUID) ORAL ACTIVE 07/12/2025 [id number] 4 Joao WHEATLEY AVID A 2023 780 [facility] I[place] PSYLLIUM PWDR,ORAL MIX AND DRINK 3.4GM(1 TEASPOON FUL) BY MOUTH EVERY DAY FOR IRRITABL E COLON (DISSOLV E IN 8OZ WATER/JU ICE BEFORE DRINKING ) ORAL ACTIVE 07/04/2025 [id number] 4 KONYN,PET ER G 2023 390 [facility] SIMVASTATIN 40MG TAB TAKE ONE-HALF TABLET BY MOUTH AT BEDTIME FOR CHOLESTE ROL ORAL ACTIVE 05/29/2025 [id number] 4 Joao WHEATLEY 2023 45 [place] SIMVASTATIN 40MG TAB TAKE ONE-HALF TABLET BY MOUTH AT BEDTIME FOR CHOLESTE ROL ORAL DISCONT INUED 08/22/2024 [id number] 4 BYRDKELVIN SAMM [place] 2023 45 [place] SODIUM FLUORIDE 1.1% TOOTHPASTE BRUSH SMALL AMOUNT TO TEETH TWICE DAILY FOR TOOTH DECAY PREVENTI ON DENTAL 07/08/2024 [id number] KADEN ALONSO 2022 51 [facility] SUCRALFATE 1GM TAB TAKE ONE TABLET BY MOUTH TWICE DAILY ON AN EMPTY STOMACH. TAKE UPON AWAKENIN G AND BEFORE BED ORAL ACTIVE 05/29/2025 [id number] 4 oJao WHEATLEY 2023 60 [place] SUCRALFATE 1GM TAB TAKE ONE TABLET BY MOUTH TWICE DAILY ON AN EMPTY STOMACH. TAKE UPON AWAKENIN G AND BEFORE BED ORAL DISCONT INUED 01/20/2025 [id number] 4 CANDELARIO HICKMAN 2023 60 [place] Allergies, Adverse Reactions, Alerts Combined list of allergies from Department of Defense and Veterans Affairs facilities. It does not include entries that were removed or entered in error. Substance Category Reaction Severity Reaction type Status Date Reported Comments Source ERYTHROMYCIN Propensity to adverse reactions to drug (finding) active 2 [facility] FLOMAX Propensity to adverse reactions to drug (finding) Nausea active 9 [facility] GABAPENTIN Propensity to adverse reactions to drug (finding) Fatigue MILD active 4 [facility] NEURONTIN Propensity to adverse reactions to drug (finding) Fatigue active 7 [facility] TAMSULOSIN Propensity to adverse reactions to drug (finding) Nausea MILD active 4 [facility] Immunizations Combined list of available immunizations from the Department of Defense and Veterans Affairs facilities. 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 Comments Source COVID-19 (MODERNA), MRNA, LNP-S, PF, 100 MCG OR 50 MCG DOSE 3 2020 207 complet ed MOD; [id number]; 2 [place] INFLUENZA VACCINE, QUADRIVALENT, ADJUVANTED 2020 205 complet ed [place] COVID-19 (MODERNA), MRNA, LNP-S, PF, 100 MCG/0.5 ML DOSE 2 2020 207 complet ed MOD; [id number]; 1 [place] COVID-19 (MODERNA), MRNA, LNP-S, PF, 100 MCG/0.5 ML DOSE 1 2020 207 complet ed MOD; [id number]; 1 [place] ZOSTER RECOMBINANT 2 2019 187 complet ed [place] ZOSTER RECOMBINANT 1 2019 187 complet ed [place] INFLUENZA, INJECTABLE, QUADRIVALENT, PRESERVATIVE FREE 2018 150 complet ed Site: Left Deltoid [place] INFLUENZA, INJECTABLE, QUADRIVALENT 2017 158 complet ed Site: Left Deltoid [place] PNEUMOCOCCAL POLYSACCHARID E PPV23 2017 33 complet ed [place] TDAP 2016 115 complet ed Site: Right Deltoid [place] INFLUENZA, SEASONAL, INJECTABLE 2016 141 complet ed Site: Right Deltoid [place] PNEUMOCOCCAL CONJUGATE PCV 13 2016 133 complet ed PCP [facility] FLU,3 YRS (HISTORICAL) 2015 88 complet ed [place] FLU,3 YRS (HISTORICAL) 2014 88 complet ed cvs [facility] ZOSTER (HISTORICAL) 2014 121 complet ed [place] FLU,3 YRS (HISTORICAL) 2011 88 complet ed [facility] FLU,3 YRS (HISTORICAL) 2011 88 complet ed [facility] FLU,3 YRS (HISTORICAL) 2009 88 complet ed [facility] FLU,3 YRS (HISTORICAL) 2008 88 complet ed Pt. got his vaccine at his MD at [facility]!! [facility] FLU,3 YRS (HISTORICAL) [address] Kika Camarena. [facility] FLU,3 YRS (HISTORICAL) 2007 88 complet ed Site: Left Deltoid [place] FLU,3 YRS (HISTORICAL) 2005 88 complet ed [place] FLU,3 YRS (HISTORICAL) 2004 IGLESIA COMER 88 complet ed [place] PNEUMOCOCCAL, UNSPECIFIED FORMULATION 2004 CRESCENCIO COPPOLA A 109 complet ed [place] Results Combined list of recent chemistry, hematology and other laboratory results from Department of Defense and Veterans Affairs, ranging from 15 months to all on record, depending upon the facility. Order Name Results Value Reference Range Date Interpretation Specimen Comments Source THYROID T4 FREE(FT4) (WROX) THYROXINE (T4) FREE [MASS/VOLUM E] IN SERUM OR PLASMA 0.99 ng/dL 0.6 - 1.6 03/22 Specimen Type: SERUM No comment entered. Ordering Provider: SHAD WHEATLEY A Report Released Date/Time: Mar 22, 2024 10:50 AM Reporting Lab: [facility] [place] [address] [facility] [address] Performing Lab: [facility] [place] [address] [facility] [address] [place] THYROID TOTAL T3 TRIIODOTHYR ONINE (T3) [MASS/VOLUM E] IN SERUM OR PLASMA 102.12 ng/dL 35 - 193 03/22 Specimen Type: SERUM No comment entered. Ordering Provider: SHAD WHEATLEY A Report Released Date/Time: Mar 22, 2024 10:50 AM Reporting Lab: [facility] [place] [address] [facility] [address] Performing Lab: [facility] [place] [address] [facility] [address] [place] TSH THYROTROPIN [UNITS/VOLU ME] IN SERUM OR PLASMA 6.24 u[IU]/ mL 0.35 - 5.00 03/22 H Specimen Type: SERUM No comment entered. Ordering Provider: SHAD WHEATLEY A Report Released Date/Time: Mar 22, 2024 10:50 AM Reporting Lab: [facility] TR[facility] [address] [address] Performing Lab: [facility] [address] [address] [place] CBC AND DIFF (AUTO) LEUKOCYTES [#/VOLUME] IN BLOOD BY AUTOMATED COUNT 6.41 10*3/u L 4.50 - 11.00 03/22 Specimen Type: BLOOD No comment entered. Ordering Provider: SHAD WHEATLEY A Report Released Date/Time: Mar 22, 2024 10:50 AM Reporting Lab: [facility] [address] [address] Performing Lab: [facility] [address] [address] [place] CBC AND DIFF (AUTO) ERYTHROCYTE S [#/VOLUME] IN BLOOD BY AUTOMATED COUNT 4.43 10*6/u L 4.23 - 5.66 03/22 Specimen Type: BLOOD No comment entered. Ordering Provider: SHAD WHEATLEY A Report Released Date/Time: Mar 22, 2024 10:50 AM Reporting Lab: [facility] [address] [address] Performing Lab: [facility]N [facility] [address] [place] CBC AND DIFF (AUTO) HEMOGLOBIN [MASS/VOLUM E] IN BLOOD 10.3 g/dL 12.8 - 17 03/22 L Specimen Type: BLOOD No comment entered. Ordering Provider: SHAD WHEATLEY A Report Released Date/Time: Mar 22, 2024 10:50 AM Reporting Lab: [facility] TR[facility] [address] [address] Performing Lab: [facility] [address] [address] [place] CBC AND DIFF (AUTO) HEMATOCRIT [VOLUME FRACTION] OF BLOOD BY AUTOMATED COUNT 32.5 39.2 - 50.4 03/22 L Specimen Type: BLOOD No comment entered. Ordering Provider: SHAD WHEATLEY A Report Released Date/Time: Mar 22, 2024 10:50 AM Reporting Lab: [facility] [address] [facility] [address] Performing Lab: [facility] [address] [address] [place] CBC AND DIFF (AUTO) MCV [ENTITIC VOLUME] BY AUTOMATED COUNT 73.4 fL 82 - 99 03/22 L Specimen Type: BLOOD No comment entered. Ordering Provider: SHAD WHEATLEY A Report Released Date/Time: Mar 22, 2024 10:50 AM Reporting Lab: [facility] [address] [address] Performing Lab: [facility] SERVICESRDALE [facility]ENTERTRN [address] [address] [place] CBC AND DIFF (AUTO) MCHC [MASS/VOLUM E] BY AUTOMATED COUNT 31.7 g/dL 30.8 - 35.1 03/22 Specimen Type: BLOOD No comment entered. Ordering Provider: SHAD WHEATLEY A Report Released Date/Time: Mar 22, 2024 10:50 AM Reporting Lab: [facility] [address] [address] Performing Lab: [facility] TRN [facility] [address] [place] CBC AND DIFF (AUTO) PLATELETS [#/VOLUME] IN BLOOD BY AUTOMATED COUNT 284 10*3/u L 140 - 360 03/22 Specimen Type: BLOOD No comment entered. Ordering Provider: SHAD WHEATLEY A Report Released Date/Time: Mar 22, 2024 10:50 AM Reporting Lab: [facility]ENTERUSETS [address] [address] Performing Lab: [facility] TRN [facility] [address] [place] CBC AND DIFF (AUTO) ERYTHROCYTE DISTRIBUTIO N WIDTH [RATIO] BY AUTOMATED COUNT 14.5 12.0 - 16.0 03/22 Specimen Type: BLOOD No comment entered. Ordering Provider: SHAD WHEATLEY A Report Released Date/Time: Mar 22, 2024 10:50 AM Reporting Lab: [facility] [address] [address] Performing Lab: [facility] [place] [place] [address] [address] [place] CBC AND DIFF (AUTO) MONOCYTES [#/VOLUME] IN BLOOD BY AUTOMATED COUNT 0.58 10*3/u L 0.30 - 1.10 03/22 Specimen Type: BLOOD No comment entered. Ordering Provider: SHAD WHEATLEY A Report Released Date/Time: Mar 22, 2024 10:50 AM Reporting Lab: [facility] SERVICESRDALE [facility] CENTERTRN [address] [address] Performing Lab: [facility]RL TRN [facility]ENTERUSETS [address] [address] [place] CBC AND DIFF (AUTO) MCH [ENTITIC MASS] BY AUTOMATED COUNT 23.3 pg 26.2 - 32.6 03/22 L Specimen Type: BLOOD No comment entered. Ordering Provider: SHAD WHEATLEY A Report Released Date/Time: Mar 22, 2024 10:50 AM Reporting Lab: [facility] SERVICESRDALE [facility] CENTERTRN [address] [address] Performing Lab: [facility] [place] [address] [address] [place] CBC AND DIFF (AUTO) NEUTROPHILS /100 LEUKOCYTES IN BLOOD BY AUTOMATED COUNT 62.3 43.7 - 75.8 03/22 Specimen Type: BLOOD No comment entered. Ordering Provider: SHAD WHEATLEY A Report Released Date/Time: Mar 22, 2024 10:50 AM Reporting Lab: [facility] W[facility] [place] [address] [address] Performing Lab: [facility]N [facility] [address] [place] CBC AND DIFF (AUTO) LYMPHOCYTES /100 LEUKOCYTES IN BLOOD BY AUTOMATED COUNT 19.3 14.0 - 42.3 03/22 Specimen Type: BLOOD No comment entered. Ordering Provider: SHAD WHEATLEY A Report Released Date/Time: Mar 22, 2024 10:50 AM Reporting Lab: [facility] [place] [address] [address] Performing Lab: [facility] [address] [address] [place] CBC AND DIFF (AUTO) MONOCYTES/1 00 LEUKOCYTES IN BLOOD BY AUTOMATED COUNT 9.0 5.1 - 13.7 03/22 Specimen Type: BLOOD No comment entered. Ordering Provider: SHAD WHEATLEY A Report Released Date/Time: Mar 22, 2024 10:50 AM Reporting Lab: [facility] [address] [address] Performing Lab: [facility] [address] [address] [place] CBC AND DIFF (AUTO) EOSINOPHILS /100 LEUKOCYTES IN BLOOD BY AUTOMATED COUNT 8.0 0.4 - 6.8 03/22 H Specimen Type: BLOOD No comment entered. Ordering Provider: SHAD WHEATLEY A Report Released Date/Time: Mar 22, 2024 10:50 AM Reporting Lab: [facility] [address] [address] Performing Lab: [facility] [address] [address] [place] CBC AND DIFF (AUTO) BASOPHILS/1 00 LEUKOCYTES IN BLOOD BY AUTOMATED COUNT 0.9 0.1 - 2.0 03/22 Specimen Type: BLOOD No comment entered. Ordering Provider: SHAD WHEATLEY A Report Released Date/Time: Mar 22, 2024 10:50 AM Reporting Lab: [facility] [address] [address] Performing Lab: [facility] [address] [address] [place] CBC AND DIFF (AUTO) NEUTROPHILS [#/VOLUME] IN BLOOD BY AUTOMATED COUNT 3.99 10*3/u L 2.20 - 7.60 03/22 Specimen Type: BLOOD No comment entered. Ordering Provider: SHAD WHEATLEY A Report Released Date/Time: Mar 22, 2024 10:50 AM Reporting Lab: [facility] [address] [address] Performing Lab: [facility] [address] [address] [place] CBC AND DIFF (AUTO) LYMPHOCYTES [#/VOLUME] IN BLOOD BY AUTOMATED COUNT 1.24 10*3/u L 1.00 - 3.20 03/22 Specimen Type: BLOOD No comment entered. Ordering Provider: SHAD WHEATLEY A Report Released Date/Time: Mar 22, 2024 10:50 AM Reporting Lab: [facility] [address] [address] Performing Lab: [facility] [address] [place] CBC AND DIFF (AUTO) EOSINOPHILS [#/VOLUME] IN BLOOD BY AUTOMATED COUNT 0.51 10*3/u L 0.03 - 0.44 03/22 H Specimen Type: BLOOD No comment entered. Ordering Provider: SHAD WHEATLEY A Report Released Date/Time: Mar 22, 2024 10:50 AM Reporting Lab: [facility] [address] Performing Lab: [facility] [address] [address] [place] CBC AND DIFF (AUTO) BASOPHILS [#/VOLUME] IN BLOOD BY AUTOMATED COUNT 0.06 10*3/u L 0.01 - 0.13 03/22 Specimen Type: BLOOD No comment entered. Ordering Provider: SHAD WHEATLEY A Report Released Date/Time: Mar 22, 2024 10:50 AM Reporting Lab: [facility] [address] [address] Performing Lab: [facility] [address] [place] CBC AND DIFF (AUTO) IMMATURE GRANULOCYTE S/100 LEUKOCYTES IN BLOOD BY AUTOMATED COUNT 0.5 0.0 - 0.7 03/22 Specimen Type: BLOOD No comment entered. Ordering Provider: SHAD WHEATLEY A Report Released Date/Time: Mar 22, 2024 10:50 AM Reporting Lab: [facility] [address] [address] Performing Lab: [facility] [address] [address] [place] CBC AND DIFF (AUTO) IMMATURE GRANULOCYTE S [#/VOLUME] IN BLOOD 0.03 10*3/u L 0.00 - 0.06 03/22 Specimen Type: BLOOD No comment entered. Ordering Provider: SHAD WHEATLEY A Report Released Date/Time: Mar 22, 2024 10:50 AM Reporting Lab: [address] [address] Performing Lab: [facility] [address] [address] [place] CBC AND DIFF (AUTO) NRBC % 0.0 0.0 - 0.0 03/22 Specimen Type: BLOOD No comment entered. Ordering Provider: SHAD WHEATLEY A Report Released Date/Time: Mar 22, 2024 10:50 AM Reporting Lab: [address] [address] Performing Lab: [facility] [address] [address] [place] CBC AND DIFF (AUTO) NRBC, ABS 0.00 10*3/u L 0.00 - 0.00 03/22 Specimen Type: BLOOD No comment entered. Ordering Provider: SHAD WHEATLEY A Report Released Date/Time: Mar 22, 2024 10:50 AM Reporting Lab: [facility] [address] [address] Performing Lab: [facility] [address] [address] [place] TSH THYROTROPIN [UNITS/VOLU ME] IN SERUM OR PLASMA 6.71 u[IU]/ mL 0.35 - 5.00 02/12 H Specimen Type: SERUM No comment entered. Ordering Provider: JOHN BYRD Report Released Date/Time: December 12, 2023 09:14 PM Reporting Lab: [address] [address] Performing Lab: [address] [address] [place] FERRITIN FERRITIN [MASS/VOLUM E] IN SERUM OR PLASMA 213 ng/mL 20 - 300 11/22 Specimen Type: SERUM No comment entered. Ordering Provider: JOHN BYRD Report Released Date/Time: Oct 05, 2023 03:45 PM Reporting Lab: [address] [address] Performing Lab: [address] [address] [place] IRON & TIBC PANEL IRON BINDING CAPACITY [MASS/VOLUM E] IN SERUM OR PLASMA 268 ug/dL 204 - 475 11/22 Specimen Type: SERUM No comment entered. Ordering Provider: JONH BYRD Report Released Date/Time: Oct 05, 2023 03:45 PM Reporting Lab: [address] [address] Performing Lab: [address] [address] [place] IRON & TIBC PANEL IRON [MASS/VOLUM E] IN SERUM OR PLASMA 40 ug/dL 40 - 160 11/22 Specimen Type: SERUM No comment entered. Ordering Provider: JOHN BYRD WILL Pietro Report Released Date/Time: Oct 05, 2023 03:45 PM Reporting Lab: [address] [address] Performing Lab: [address] [address] [place] IRON & TIBC PANEL IRON/IRON BINDING CAPACITY.TO SPENCER [MASS RATIO] IN SERUM OR PLASMA 14.9 20.0 - 50.0 11/22 L Specimen Type: SERUM No comment entered. Ordering Provider: JOHN BYRD Report Released Date/Time: Oct 05, 2023 03:45 PM Reporting Lab: [address] [address] Performing Lab: [address] [address] [place] [employer] [place] VITAMIN D (25-OH) 25-HYDROXYV ITAMIN D3 [MASS/VOLUM E] IN SERUM OR PLASMA 26 ng/mL 20 - 50 11/22 Specimen Type: SERUM No comment entered. Ordering Provider: JOHN BYRD Report Released Date/Time: Oct 05, 2023 03:45 PM Reporting Lab: [address] [address] Performing Lab: [address] [address] [place] TSH THYROTROPIN [UNITS/VOLU ME] IN SERUM OR PLASMA 7.13 u[IU]/ mL 0.35 - 5.00 11/22 H Specimen Type: SERUM No comment entered. Ordering Provider: JOHN BYRD Report Released Date/Time: Oct 05, 2023 03:45 PM Reporting Lab: [address] [address] Performing Lab: [address] [address] [place] HEMOGLOBI N A1C PANEL HEMOGLOBIN A1C/HEMOGLO BIN.TOTAL IN BLOOD BY HPLC 5.5 4.0 - 5.6 11/22 Specimen Type: BLOOD Comment: Values obtained from A1C measurement s can vary. For atypical A1C assays, a reported value of 7.0 could actually be between 6.72 and 7.28 if measured by a reference method. A reported value of 9.0 could actually be between 8.73 and 9.27. Ref: http://www. ngsp.org/[place] Pdata.asp Ordering Provider: JOHN BYRD Report Released Date/Time: Oct 05, 2023 03:45 PM Reporting Lab: [facility] [place] [facility] [address] [facility] [address] Performing Lab: [facility] [place] [facility] [address] [facility] [address] [facility] Vital Signs Combined list of inpatient and outpatient Vital Signs from Department of Defense and Veterans Affairs, ranging from 12 months to all on record, depending upon the facility. Vital Sign Value Date Comments Source SYSTOLIC BLOOD PRESSURE 146 03/22/20 24 12:40:04 [place] DIASTOLIC BLOOD PRESSURE 81 024 12:40:04 [place] PULSE OXIMETRY 96 03/22/2024 12:40:04 [place] WEIGHT 215.4 03/22/2024 12:40:04 [place] BMI 32kg/m2 03/22/2024 12:40:04 [place] TEMPERATURE 98.2 03/22/2024 12:40:04 [place] PULSE 83 03/22/2024 12:40:04 [place] SYSTOLIC BLOOD PRESSURE 140 10/20/19 24 15:47:08 [facility] [place] [facility] DIASTOLIC BLOOD PRESSURE 77 024 15:47:08 [facility] [place] [facility] PULSE OXIMETRY 97 10/20/2023 15:47:08 [facility] [place] WEIGHT 209.4 10/20/2023 15:47:08 [facility] BMI 31kg/m2 10/20/2023 15:47:08 [facility] PAIN 4 10/20/2023 15:47:08 [facility] TEMPERATURE 98 10/20/2023 15:47:08 [facility] PULSE 103 10/20/2023 15:47:08 [facility] RESPIRATION 18 10/20/2023 15:47:08 [facility] [place] PULSE OXIMETRY 95 10/05/2023 15:06:05 [place] WEIGHT 188 10/05/2023 15:06:05 [place] BMI 28kg/m2 10/05/2023 15:06:05 [place] PAIN 6 10/05/2023 15:06:05 [place] HEIGHT 69 10/05/2023 15:06:05 [place] TEMPERATURE 98.8 10/05/2023 15:06:05 [place] PULSE 90 10/05/2023 15:06:05 [place] RESPIRATION 18 10/05/2023 15:06:05 [place] Encounters Combined list of: 1) Encounters from Department of [facility] Affairs [facility] 2) Encounters from the Department of [facility] facilities going back up to 280 months. Location Location Details Encounter Type Encounter Number Reason For Visit Attending Provider ADM Date DC Date Status Disposition Source [facility] En[facility] [id number] 01/24 [facility] [id number] 01/24 [facility]counter [id number] 02/15 [facility] Out[facility] Encounter [id number] SHERIF CASTAÑEDA 02/22 [facility] [place] OFFICE O/P EST MOD 30-39 MIN [id number] Diagnos is: ICD-10- CM S27.0XX D Traumat ic pneumot horax, subsequ ent encount er
GILMAR,ADR ABIMBOLA S [facility] En[facility] [id number] 03/04 [facility] En[facility] [id number] 03/15 [facility] Encounter [id number] 03/30 [facility] En[facility] [id number] 04/01 [facility] EYE EXAM&TX ESTAB PT 1/>VST [id number] Diagnos is: ICD-10- CM H35.313 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, bilater al, interme d dry stage<b r/> [place] CADENA H B 04/19 [facility] FIT SPECTACLES BIFOCAL [id number] Diagnos is: ICD-10- CM Z46.0 Encount er for fit/adj st of spectac les and contact lenses< br/> NÉSTOR WILSON 04/20 [facility] Out[facility] Encounter [id number] 04/21 [facility] Encounter [id number] 04/21 [facility] Encounter [id number] 05/01 [facility] Encounter [id number] 05/24 [facility] Encounter [id number] 05/30 [facility] Out[facility] Encounter [id number] 05/31 [facility] Encounter [id number] 06/02 [facility] Out[facility] Encounter [id number] 06/08 [facility] Encounter [id number] 06/27 [facility] [place] Outpatient Encounter [id number] 06/28 [place] [facility] Out[facility] Encounter [id number] 06/29 [facility] Out[facility] Encounter [id number] 07/04 [facility] Out[facility] Encounter [id number] 07/07 [facility] Encounter [id number] 07/08 [facility] INTRAORAL PERIAPICAL EA ADD [id number] Diagnos is: ICD-10- CM K08.9 Disorde r of teeth and support ing structu res, unspeci fied
KADEN ALONSO 07/08 [facility] En[facility] [id number] 07/20 [facility] Encounter [id number] 07/21 [facility] Out[facility] Encounter [id number] 07/21 [facility] EXTRACTION ERUPTED TOOTH/EXR [id number] Diagnos is: ICD-10- CM K08.9 Disorde r of teeth and support ing structu res, unspeci fied
DE BECKETT E 07/22 [facility] En[facility] [id number] 07/22 [facility] Out[facility] Encounter [id number] 07/26 [facility] Out[facility] Encounter [id number] 07/27 [facility] Out[facility] Encounter [id number] 08/01 [facility] Out[facility] Encounter [id number] 08/01 [facility] Out[facility] Encounter [id number] 08/02 [facility] Out[facility] Encounter [id number] 08/10 [facility] Out[facility] Encounter [id number] 08/15 [facility] Out[facility] Encounter [id number] 08/18 [facility] Encounter [id number] 08/18 [facility] Out[facility]counter [id number] 08/23 [facility] [place] CLEAN/INSP ECT MAX COMP DENT [id number] Diagnos is: ICD-10- CM K03.6 Deposit s [accret ions] on teeth<b r/> NATHALY,MAUREEN MARTIN K 08/24 [facility] [place] OFFICE O/P EST HI 40 MIN [id number] Diagnos is: ICD-10- CM R11.2 Nausea with vomitin g, unspeci fied
GIL BYRD ORIViviana J 10/04 [place] [facility] Outpatient Encounter [id number] 10/06 [facility] OFFICE O/P EST MOD 30 MIN [id number] Diagnos is: ICD-10- CM M54.50 Low back pain, unspeci fied
MELVINA BAIN IEL Y 10/19 [facility] En[facility] [id number] 10/24 [facility] En[facility] [id number] 11/06 [facility] Out[facility] Encounter [id number] 11/10 [facility]counter [id number] 11/10 [facility] Encounter [id number] 11/15 [facility] Out[facility]counter [id number] 11/15 [facility] Encounter [id number] 12/25 [facility] Encounter [id number] 12/29 [facility] Encounter [id number] 01/17 [facility] Encounter [id number]/19 [facility] Encounter [id number] 01/28 [facility] Encounter [id number] 01/29 [facility] Encounter [id number] 02/01 [facility] Encounter [id number] 02/06 [facility]counter [id number] 02/06 [facility] Out[facility]counter [id number] 02/06 [facility] Encounter [id number] 02/08 [facility] Encounter [id number] 02/12 [facility] Out[facility] Encounter [id number] 02/20 [facility] Out[facility] Encounter [id number] 02/27 [facility] Out[facility] Encounter [id number]/19 [facility] OFFICE O/P EST MOD 30 MIN [id number] Diagnos is: ICD-10- CM D64.9 Anemia, unspeci fied
WHEATLEYDA VID A [facility] En[facility] [id number] 03/22 [facility] Out[facility] Encounter [id number] 03/22 [facility] Out[facility] Encounter [id number] 1.03/27 [facility] Out[facility] Encounter [id number] 1.04/10 [facility] Out[facility] Encounter [id number] 1.04/11 [facility] Encounter [id number] 1.04/24 [facility] OFFICE O/P EST LOW 20 MIN [id number] Diagnos is: ICD-10- CM L60.3 Nail dystrop hy
LUX BLOOM ES F 04/24 [facility] LIT [id number] Diagnos is: ICD-10- CM K03.6 Deposit s [accret ions] on teeth<b r/> MAUREEN ANDERSEN MARTIN K 04/25 [facility] En[facility] [id number] 1.04/26 [facility]counter [id number]/05 [facility] Out[facility] Encounter [id number]/24 [facility]counter [id number] 1[facility]05/25 [facility] Encounter [id number] 05/25 [facility] Encounter [id number] 05/26 [facility] Out[facility] Encounter [id number] [facility] Out[facility] Encounter [id number] 1.05/28 [facility] Out[facility]counter [id number] 05/28 [facility] Encounter [id number] 05/29 [facility] Outpatient Encounter [id number] 05/29 [facility]counter [id number] 06/03 [facility] Outpatient [facility]counter [id number] 06/07 [facility]counter [id number] 06/08 [facility] [id number] 06/11 [facility]counter [id number] 06/18 [facility] Outpatient Encounter [id number] 06/18 [facility] Outpatient Encounter [id number] 06/18 [facility] Outpatient Encounter [id number] 06/19 [facility] COMPRE OPH EXAM EST PT 1/> [id number] Diagnos is: ICD-10- CM H35.313 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, bilater al, interme d dry stage<b r/> LAMAR,LACE Y J 06/26 [facility] FIT SPECTACLES BIFOCAL [id number] Diagnos is: ICD-10- CM Z46.0 Encount er for fit/adj st of spectac les and contact lenses< br/> WILLARDHAIDERHarris Juan Westbrook 06/26 [facility] Outpatient Encounter [id number] 06/28 [facility] OFF/OP CNSLTJ NEW/EST MOD 40 [id number] Diagnos is: ICD-10- CM R10.30 Lower abdomin al pain, unspeci fied
JENNI NGUYEN MD 07/03 [facility] Outpatient Encounter [id number] Paul RODRIGUEZ 07/09 [facility] Outpatient Encounter [id number] 07/16 [facility] Outpatient Encounter [id number] 07/26 [facility] Outpatient Encounter [id number] 07/26 [facility] Outpatient Encounter [id number] 07/26 [facility] Social History Combined list of available smoking, tobacco, and other social history from [facility] Defense and [facility] facilities. Social History Type Response Date Comment Sourc e Tobacco smoking status [facility]24 [facility] [facility] [place] [facility] History of tobacco use VA-TOBACCO NEVER USED 03/02/2023 [facility] D History of tobacco use VA-TOBACCO NEVER USED 03/04/2022 [place] [facility] History of tobacco use DE-TOBACCO NEVER USED 03/26/2021 DE [facility]L W STRN [facility] History of tobacco use DE-TOBACCO NEVER USED 04/10/2020 [facility] D History of tobacco use DE-TOBACCO NEVER USED 09/26/2018 [facility] D History of tobacco use FORMER SMOKER - <100 LIFETIME CIGARETTES 06/26/2018 [place] History of tobacco use LIFETIME NON-TOBACCO USER 11/04/2017 [place] History of tobacco use LIFETIME NON-TOBACCO USER 11/04/2016 [place] History of tobacco use LIFETIME NON-TOBACCO USER 10/09/2015 [place] History of tobacco use HISTORY OF SMOKING 07/23/2005 [place] History of tobacco use LIFETIME NON-SMOKER 08/20/2004 [place] Plan of Care List of future care activities from [facility]. Additional future care activities may be listed in the Assessment and Plan section. Date/Time Care Activity Care Activity Detail Facili 09/04/2024 AMBULATORY - MEDICINE AMBULATORY - MEDICI [facility] 09/11/2024 AMBULATORY - MEDICINE AMBULATORY - MEDICI [place] 10/24/2024 AMBULATORY - NONE AMBULATORY - NONE [facility] TRL WSN [facility] 10/30/2024 AMBULATORY - MEDICINE AMBULATORY - MEDICI [place] 12/26/2024 AMBULATORY - MEDICINE AMBULATORY - MEDICI NE DE [facility] WSN [facility] 12/26/2024 AMBULATORY - MEDICINE [facility] Advance Directives List of completed, amended, or rescinded Advance Directives on record at [facility] facilities. An actual copy of the Directive is not included. Date Advance Directive Provider Source 11/04/2016 ADVANCE DIRECTIVE RONY URRUTIA [facility]
--- OUTSIDE RECORDS SUMMARY | 2024-07-26 16:55 | XMS_ITS | Encounter Summary ---
Author Name [facility] [place] [facility] [place] Address [address] [place] [id number] Care Team Providers Care Fire Observer Name Role Phone WAYNE WHEATLEY Primary Care [...] Name Patient's Relationship to Policy [facility]) MEDICARE ADVANTAGE [facility] ([facility]) Aug 25, 2001 [facility] ([facility]) [id number] [phone] TIERNEYADRIANA RUSSO PATIENT MEDICARE ([facility]) MEDICARE (M) PART A Oct 23, 2016 PART A [id number] [place] PATIENT MEDICARE ([facility]) MEDICARE (M) PART B Oct 23, 2016 PART B [id number] [place] PATIENT MEDICARE ([facility]) MEDICARE (M) PART B Jul 25, 2011 PART B [id number] [place] PATIENT MEDICARE ([facility]) MEDICARE (M) PART B Jul 25, 2011 PART B [id number] [place] PATIENT MEDICARE ([facility]) MEDICARE (M) PART B Jul 25, 2011 PART B [id number] [phone] [place] PATIENT MEDICARE (WNR) MEDICARE (M) PART A Apr 24, 2004 PART A [id number] [place] PATIENT MEDICARE (WNR) MEDICARE (M) PART A Apr 24, 2004 PART A [id number] [phone] [place] PATIENT MEDICARE (WNR) MEDICARE (M) PART A Apr 24, 2004 PART A [id number] [place] PATIENT Selected Encounter This section includes the information on record at [place] for the Encounter. Date/Time Encounter Type Encounter Description Reason Provider Source Oct 05, 2023 03:00 PM OFFICE O/P EST HI 40 MIN PRIMARY CARE/MEDICINE ICD-10-CM R11.2 Nausea with vomiting, unspecified BYRDBHAVANI LUCAS Harris Encounter Template Text not used by [place] Assessments - Encounter Diagnoses This section includes the primary and secondary diagnoses documented for the Encounter. Date/Time Primary/Secondary Diagnosis Diagnosis Name Provider Source Oct 06, 2023 08:58 AM PRIMARY Nausea with vomiting, unspecified BYRDBHAVANI LUCAS [place] Oct 06, 2023 08:58 AM SECONDARY Anemia, unspecified BYRDBHAVANI LUCAS [place] Oct 06, 2023 08:58 AM SECONDARY Beta thalassemia BHAVANI BYRD [facility] Oct 06, 2023 08:58 AM SECONDARY Chronic pain syndrome BHAVANI BYRD [facility] Oct 06, 2023 08:58 AM SECONDARY Corns and callosities BHAVANI BYRD [facility] 14, 2024 08:58 AM SECONDARY Gastroparesis BHAVANI BYRD [facility] Oct 06, 2023 08:58 AM SECONDARY Heartburn BHAVANI BYRD [place] Oct 06, 2023 08:58 AM SECONDARY Hyperlipidemia, unspecified BYRDBHAVANI LUCAS [place] Oct 06, 2023 08:58 AM SECONDARY Hypothyroidism, unspecified BYRDBHAVANI LUCAS [place] Oct 06, 2023 08:58 AM SECONDARY Low back pain, unspecified BYRDBHAVANI LUCAS [facility] Oct 06, 2023 08:58 AM SECONDARY Major depressive disorder, recurrent, unspecified BYRD,BHAVANI J MARGRET Oct 06, 2023 08:58 AM SECONDARY Other idiopathic peripheral autonomic neuropathy BHAVANI BYRD Plan of Treatment: Future Appointments (+ 6 months) and Future Tests (+/- 45 days) The Plan of Treatment section includes future care activities for the patient from all [place] treatmentfacilities. This section includes future appointments and future orders which are active, pending or scheduled. Future Appointments This section includes appointments that were scheduled to occur 6 months from the date of the Encounter, up to a maximum of 20 appointments. The data comes from all [place] treatment facilities. Appointment Date/Time Appointment Type Appointme nt Facility Name Oct 20, 2023 03:30 PM [facility] [place] [facility] Nov 18, 2023 02:15 PM [place] [facility] Mar 22, 2024 11:00 AM AM[facility]ATORY - MEDICINE [facility] Vital Signs: All taken on the encounter date This section contains inpatient and outpatient Vital Signs collected on the date of the Encounter. Date/Time Temperature Pulse Blood Pressure Respiratory Rate SP02 Pain Height Weight Body Mass Index Source Oct 05, 2023 03:07 PM 146/76 [place] Oct 05, 2023 03:06 PM 98.8 90 18 95 6 69 [phone] 28 [facility] Social History: Smoking Status (Most current) and Tobacco Use (All prior to encounter date) This section includes the most current, and the historical, smoking and tobacco- related health factors from the [place] facility where the Encounter took place. Current Smoking Status This section includes the most current smoking, or tobacco-related health factor, from the [place] facility where the Encounter took place. Date/Time Current Smoking Status Comment Catie thompson Mar 02, 2023 01:30 PM VA-TOBACCO NEVER USED [place] Tobacco Use History This section includes a history of the smoking, or tobacco-related health factors, that were collected on or before the date of the Encounter. The data comes from the [place] facility where the Encounter took place. Date/Time Smoking Status/Tobacco Use Comment F gerardo Mar 04, 2022 03:00 PM VA-TOBACCO NEVER USED [place] Apr 10, 2020 03:00 PM VA-TOBACCO NEVER USED [place] Sep 26, 2018 04:01 PM VA-TOBACCO NEVER USED [place] Jun 26, 2018 03:45 PM FORMER SMOKER - <100 LIFETIME CI CHEN [place] Nov 04, 2017 04:35 PM LIFETIME NON-TOBACCO USER [place] Nov 04, 2016 09:12 AM LIFETIME NON-TOBACCO USER [place] Oct 09, 2015 03:10 PM LIFETIME NON-TOBACCO USER [place] Jul 23, 2005 02:15 PM HISTORY OF SMOKING [place] Aug 20, 2004 10:48 AM LIFETIME NON-SMOKER [place] Advance Directives: All historical and current Section Date Range: From patient's date of to the date document was created. This section includes ALL of a patient's completed or amended [place] Advance and Rescinded Directives. The entries below indicate that a directive exists for the patient, but an actual copy is not included with this document. The data comes from all [place] facilities. Date Advance Directives Provider Source Nov 04, 2016 ADVANCE DIRECTIVE RONY URRUTIA [place] [facility] L [facility] Encounter Notes: All associated encounter notes This section contains the clinical notes associated to the Encounter. Date/Time Encounter Note(s) Provider Source December 12, 2023 09:14 PM PHYSICIAN NOTE: LOCAL TITLE: MD NOTE STANDARD TITLE: PHYSICIAN NOTE DATE OF NOTE: DECEMBER 12, 2023@21:14 ENTRY DATE: DECEMBER 12, 2023@21:14:44 AUTHOR: BHAVANI BYRD EXP COSIGNER: URGENCY: STATUS: COMPLETED NOTE Has ADDENDA Please confirm with that he is taking his Levothyroxine medication correctly. Recheck TSH level in the next 1-2 weeks. /jose cruz/ BHAVANI BYRD MD PHYSICIAN Signed: 12/12/2023 21:15 Receipt Acknowledged By: 12/15/2023 15:49 /es/ OLI AUSTIN LPN LICENSED PRACTICAL NURSE 12/15/2023 15:52 /jose cruz/ BONNIE WILLIS RN REGISTERED NURSE 12/15/2023 ADDENDUM STATUS: COMPLETED Called and spoke to Paulina. Forwarded PCP's message. Vetetran states he is taking LT4 on an empty stomach. But does take calcium supplement about an hour later. recommended he take his calcium w/either lunch ot dinner instead. Paulina understands information and will try recommendation. Paulina will come in for lab works in about 2 weeks. /jose cruz/ BONNIE WILLIS RN REGISTERED NURSE Signed: 12/15/2023 15:52 BHAVANI [place] Oct 05, 2023 03:28 PM PHYSICIAN NOTE: LOCAL TITLE: MD NOTE STANDARD TITLE: PHYSICIAN NOTE DATE OF NOTE: OCT 05, 2023@15:28 ENTRY DATE: OCT 05, 2023@15:28:42 AUTHOR: BHAVANI BYRD EXP COSIGNER: URGENCY: STATUS: COMPLETED PRIMARY CARE VISIT KAM GELLER, is a 72 yo WHITE MALE [place] who presents today at the [place] [facility]. TYPE OF VISIT: Face to face CHART REVIEWED, PATIENT EXAMINED. HPI: New patient to my clinic. He reports increasing nausea with some vomiting over the last several months. He is on a chronic Dilaudid pain pump for severe back pain. He also has a history of gastroparesis, he tells me he was evaluated extensively by [place] [facility] several years ago. At that point in time he was on a different narcotic medication, an oral medication regimen, and once he stopped that regimen. His gastroparesis resolved. He also reports chronic severe daily back pain. He has a nerve stimulator as well as an infusion pump with Dilaudid. He is followed by the [place] pain management center. However he states that they do nothing, I tell them the pain pump is not working and they say give it a chance?.However its been in for 2 years!. He would be interested in going to pain management at the [place] to see if there are any alternatives to this current regimen. I spoke with Dr. Art betancur for submitted via instant messaging to determine if it is a possibility to have the go to the [place] pain medicine clinic and he said that it is possible because this patient is considered an active patient of the pain management clinic. Dr. Cheri Driscoll said that the had been evaluated by Dr. Feliciano. Patient overdue for labs. 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 He denies any active signs of bleeding. He denies any cardio pulmonary symptoms. Most Recent labs reviewed and all medications were reconciled during this visit. Service Connection/Rated Disabilities: Service Connected Disabilities with % Eligibility: SERVICE CONNECTED 50% to 100% VERIFIED Total S/C %: 70 KNEE PROSTHESIS 30% S/C ARTHRITIS, DEGENERATIVE 10% S/C LIMITED EXTENSION OF KNEE 30% S/C ARTHRITIS, DEGENERATIVE 10% S/C LUMBOSACRAL OR CERVICAL STRAIN 10% S/C LIMITED EXTENSION OF KNEE 30% S/C SOCIAL HISTORY: MARITAL STATUS - Tobacco use/history -nonsmoker Alcohol use/history -rare Drug use/history -none HISTORY: PERIOD OF SERVICE - [facility] FROM Feb TO Feb COMBAT SERVICE INDICATED: Yes VITAL SIGNS: Temperature 98.8 F [37.1 C] (10/05/2023 15:06) Blood Pressure 146/76 (10/05/2023 15:07) Pulse 90 (10/05/2023 15:06) Respiration 18 (10/05/2023 15:06) Pain 6 (10/05/2023 15:06) BMI BMI: 27.8 Weight 188 lb [85.28 kg] (10/05/2023 15:06) Pulse Oximetry 95% (10/05/2023 15:06) ASSISTIVE DEVICES: REVIEW OF SYSTEMS: All systems are reviewed and are otherwise negative, unless specified in the HPI. PHYSICAL EXAMINATION: General: Well-appearing, in no obvious distress. Marked hunched kyphosic back. Shuffling gait. Feet: decreased sensation diffusely. Mental Status: Alert and oriented x 3. Head: Normocephalic, atraumatic. Eyes: PERRL. EOMI. Anicteric sclerae. ENT: Moist oral mucosa. dentition Neck: Supple. FROM. No JVD. No LAD. No bruit. Thyroid unremarkable. Lungs: CTAB. Normal chest excursion. Eupneic respirations. CV: Heart tones S1, S2. RRR. No M/G/R. No peripheral edema GI: Abdomen is soft and nontender. No palpable mass or organomegaly. Ext: No cyanosis or clubbing. No gross deformities. Neuro: CN II through XII grossly intact. Normal speech. Normal gait. Integument: Skin warm and dry. No rashes or lesions on visible areas. Psych: Normal mood and affect. Normal judgment. Cooperative with exam, follows commands. ALLERGIES: ERYTHROMYCIN, NEURONTIN, FLOMAX HEALTH MAINTENANCE PREVENTIVE MEDICINE GOALS Lipid Screening DUE NOW Influenza Immunization DUE NOW Medication Reconciliation DUE NOW PAVE Foot Check DUE NOW ASSESSMENT/PLAN: Active problems - Computerized Problem List is the source for the followin. Anemia- Unclear if stable, check lab or test, as discussed. presumed etiology is Thalasemia. 2. N/V: Unclear etiology but he does have a history of gastroparesis. He continues on Dilaudid, on narcotic medication, infused and his pain pump, which could be contributing to this issue. We will check lab work and refer back to gastroenterology for further evaluation of this issue. 3. Gastroparesis See above 5. Chronic pain Long discussion today, the is interested in revisiting the [place] pain clinic. I have confirmed with Dr. Chrei Driscoll that it is appropriate for him to get a follow-up appointment with Dr. Feliciano. The was made aware of this and to expect a call regarding an appointment. 7. Hypothyroidism (SNOMED CT [id number]) Unclear if stable, check labs 13. Hyperlipidemia (SNOMED CT [id number]) Unclear if stable check labs 14. beta thalassemia (SNOMED CT 15702626) Lifelong because of anemia in this patient. Unclear if stable, check CBC. 15. Depression (SNOMED CT [id number])- Although he struggles intermittently with chronic pain, he denies current severe symptoms of depression. No thoughts of self-harm. 17. Callus on foot- refer to Podiatry 18. Peripheral Neuropathy- Peripheral neuropathy symptoms in his feet. Likely also contributing to his pain. I [place] [facility] see if they can help with this as well. Total time I spent on this visit was 45 minutes and included a review of chart, labs, notes, physical exam and discussion/education of patient. LAB ORDERS FOR NEXT VISIT: NURSING: PLEASE ORDER APPROPRIATE CHRONIC DISEASE LAB ORDERS FOLLOW UP: Return to clinic as noted below and/or sooner PRN UPCOMING APPOINTMENTS: 10/20/2023 15:30 CWM/NO/NEUROLOGY 02/22/2024 15:45 CWM/NO/DENTAL/RDH1 PM 05/01/2024 14:00 NHM/OPT/VISUAL IMAGING 05/01/2024 14:30 CWM/NO/OPTOMETRY/MERHAR All medications were reconciled during this visit. No barriers noted; patient understands and agrees to current treatment plan. If patient has any questions, concerns or changes in current health status he/she will call or come in to the [facility]. PACT TEAM INSTRUCTIONS: Lipid Screening: Lipid profile ordered at this encounter. Medication Reconciliation: Outpatient: Has the patient been taking medications as documented in the EMLR? YES: The patient has been taking medications as documented in the EMLR. Essential Medication List for Review used to complete this medication reconciliation. INCLUDED IN THIS LIST: Alphabetical list of active outpatient prescriptions dispensed from this [facility] (local) and dispensed from another [place] or [facility] facility (remote) as well as inpatient [...] whether with a VA or non-VA provider. /es/ BHAVANI BYRD MD PHYSICIAN Signed: 10/06/2023 08:58 BHAVANI BYRD Oct 05, 2023 02:58 PM PREVENTIVE MEDICIN E NURSING NOTE: LOCAL TITLE: CLINICAL REMINDERS/NURSING STANDARD TITLE: PREVENTIVE MEDICINE NURSING NOTE DATE OF NOTE: OCT 05, 2023@14:58 ENTRY DATE: OCT 05, 2023@14:58:05 AUTHOR: OLI AUSTIN EXP COSIGNER: URGENCY: STATUS: COMPLETED Homelessness/Food Insecurity Screen: In the past 2 months, have you been living in stable housing that you own, rent, or stay in as part of a household? Yes - Living in stable housing. Are you worried or concerned that in the next 2 months you may NOT have stable housing that you own, rent, or stay in as part of a household? No - Not worried about housing near future The Paulina reports the following: Within the past 12 months, you worried whether your food would run out before you got money to buy more. Never true Within the past 12 months, the food you bought just didn't last and you didn't have money to get more. Never true Depression Screening: Perform PHQ-2 A PHQ-2 screen was performed. The score was 0 which is a negative screen for depression. Over the past two weeks, how often have you been bothered by the following problems? 1. Little interest or pleasure in doing things Not at all 2. Feeling down, depressed, or hopeless Not at all COVID-19 Immunization: Refused Moderna Monovalent COVID-19 vaccine Immunization: COVID-19 (MODERNA), MRNA, LNP-S, PF, 50 MCG/0.5 ML (AGES 12+ YEARS) Refusal Reason: PATIENT DECISION Patient refuses all immunization(s) in the COVID-19 group Date Documented: 10/05/23 14:59 Sexual Orientation: The patient thinks of their sexual orientation as: Straight or Heterosexual RHS Screen: RHS Screen Session Format: Face to Face Environmental Check Upon inquiry, the individual reports that the environment is safe to proceed. Informed Consent to Screen and Document The individual consents to proceed with screening. The individual consents to documentation of responses. PRIMARY SCREEN: In the past 12 months, how often did a current or former intimate partner (e.g., boyfriend, girlfriend, , , sexual partner): 1. Scream or curse at you Never 2. Insult or talk down to you Never 3. Threaten you with harm Never 4. Physically hurt you Never 5. Force or pressure you to have sexual contact against your will, or when you were unable to say no Never ?? The HITS tool (items 1-4 above) is [place] copyright protected by Liu Salas MD, and the user has full rights to use it throughout the [place] system. PRIMARY SCREEN RESULT: The Primary Screen is NEGATIVE. The individual answered never to all forms of IPV above (i.e., answered never to all 5 items) The individual accepts education and/or resources: Yes - Offered verbal universal education about IPV EDUCATION: The individual indicated readiness to learn. Education offered during this session as noted above. The individual indicated understanding by asking relevant questions and making appropriate comments. No barriers to learning were observed or identified. /jose cruz/ OLI AUSTIN LPN LICENSED PRACTICAL NURSE Signed: 10/05/2023 15:42 OLI AUSTIN [place] Sep 27, 2023 10:44 AM ADMINISTRATIVE NOT E: LOCAL TITLE: ADMINISTRATIVE NOTE STANDARD TITLE: ADMINISTRATIVE NOTE DATE OF NOTE: SEP 27, 2023@10:44 ENTRY DATE: SEP 27, 2023@10:44:44 AUTHOR: RYLEE SPAULDING COSIGNER: URGENCY: STATUS: COMPLETED [facility] [address] [address] [phone] * KAM GELLER [address], [place] [address] Date: SEP 27, 2023 re: This is a reminder of your upcoming PCP appt with BHAVANI BYRD. Appointment Date: Sep@15:00 Appointment Type: In-person visit Fasting blood work NON fasting blood work LEFT MESSAGE ON VOICEMAIL TO CONFIRM APPT Sincerely, Office Staff for: BHAVANI BYRD Primary Care Provider [place] [facility] [address] [address] T [phone] F [phone] Upcoming Appointments: 10/05/2023 15:00 CWM/SO/PACT 2 10/20/2023 15:30 CWM/NO/NEUROLOGY 02/22/2024 15:45 CWM/NO/DENTAL/RDH1 PM 05/01/2024 14:00 NHM/OPT/VISUAL IMAGING 05/01/2024 14:30 CWM/NO/OPTOMETRY/MERHAR APPOINTMENT [facility] (SPOPC OR SO = [place], [address] [facility]) (GOPC OR GO = [place], [address] [facility]) (NHM or NO = [facility]) (VVC - Video Call) (Tel-X Telephone Visit) (TH - Telehealth) /jose cruz/ RYLEE OLEARY Signed: 09/27/2023 10:45 RYLEE SPAULD[place]FIELD
--- OUTSIDE RECORDS SUMMARY | 2024-07-26 16:55 | XMS_ITS | Encounter Summary ---
Author Name [facility] [place] Address [address] [place] [address] Care Team Providers Care Cleaning Staff Supervisor Name Role Phone WAYNE WHEATLEY Primary Care [...] Name Patient's Relationship to Policy [facility]) MEDICARE ADVANTAGE [facility] ([facility]) Aug 25, 2001 [facility] ([facility]) [id number] ADRIANA GELLER PATIENT MEDICARE ([facility]) MEDICARE (M) PART A Oct 23, 2016 PART A [id number] QUE GELLER PATIENT MEDICARE ([facility]) MEDICARE () PART B Oct 23, 2016 PART B [id number] QUE GELLER PATIENT MEDICARE ([facility]) MEDICARE (M) PART B Jul 25, 2011 PART B [id number] QUE GELLER PATIENT MEDICARE ([facility]) MEDICARE (M) PART B Jul 25, 2011 PART B [id number] QUE GELLER PATIENT MEDICARE (WNR) MEDICARE (M) PART B Jul 25, 2011 PART B [id number] [phone] QUE GELLER PATIENT MEDICARE (WNR) MEDICARE (M) PART A Apr 24, 2004 PART A [id number] QUE GELLER PATIENT MEDICARE (WNR) MEDICARE (M) PART A Apr 24, 2004 PART A [id number] 97A QUE GELLER PATIENT MEDICARE (WNR) MEDICARE (M) PART A Apr 24, 2004 PART A [id number] QUE GELLER PATIENT Selected Encounter This section includes the information on record at [place] for the Encounter. Date/Time Encounter Type Encounter Description Reason Pro vider Source Oct 07, 2023 02:53 PM Outpatient Encounter PODIATRY IHE Encounter Template Text not used by [place] Plan of Treatment: Future Appointments (+ 6 months) and Future Tests (+/- 45 days) The Plan of Treatment section includes future care activities for the patient from all [place] treatmentfacilities. This section includes future appointments and future orders which are active, pending or scheduled. Future Appointments This section includes appointments that were scheduled to occur 6 months from the date of the Encounter, up to a maximum of 20 appointments. The data comes from all [place] treatment facilities. Appointment Date/Time Appointment Type Appointme nt Facility Name Oct 20, 2023 03:30 PM [facility] Nov 18, 2023 02:15 PM [facility] Mar 22, 2024 11:00 AM AMBULATORY - MEDICINE [facility] Social History: Smoking Status (Most current) and Tobacco Use (All prior to encounter date) This section includes the most current, and the historical, smoking and tobacco- related health factors from the [facility] facility where the Encounter took place. Current Smoking Status This section includes the most current smoking, or tobacco-related health factor, from the VA facility where the Encounter took place. Date/Time Current Smoking Status Comment Catie thompson Mar 26, 2021 02:25 PM [facility]TO[facility]ACCO [facility] Advance Directives: All historical and current Section Date Range: From patient's date of to the date document was created. This section includes ALL of a patient's completed or amended [place] Advance and Rescinded Directives. The entries below indicate that a directive exists for the patient, but an actual copy is not included with this document. The data comes from all [place] facilities. Date Advance Directives Provider Source Nov 04, 2016 ADVANCE DIRECTIVE RONY URRUTIA [place] [facility] Encounter Notes: All associated encounter notes This section contains the clinical notes associated to the Encounter. Date/Time Encounter Note(s) Provider Source Oct 07, 2023 02:53 PM PRIMARY CARE DEENA RS: [facility] TITLE: PATIENT LETTER - SPECIALTY [facility] STANDARD TITLE: PRIMARY CARE LETTERS DATE OF NOTE: OCT 07, 2023@14:53 ENTRY DATE: OCT 07, 2023@14:53:19 AUTHOR: MARCELINA BAXTER COSIGNER: URGENCY: STATUS: COMPLETED [facility] Specialty Outpatient Clinic Telephone number: [phone] KAM NAVARRO [address], [place], [address] OCT 07, 2023 Dear Martinton, We would like to assist you in scheduling a Podiatry appointment at the [place]. We have been unable to reach you by phone. To schedule this appointment please call us at [phone]. Our booking appointment hours are Tuesday through Tuesday from 8:00 am to 4:00 pm. Please leave a message if you receive voicemail and let us know a good time and telephone number where we can reach you. If we don't hear back from you within 14 days from the date of this letter we will discontinue the request. If you have already scheduled this appointment, please disregard this letter. Your health is important to us. Sincerely, [facility] [address] [place] [address] [place] [address] [phone] [facility] [address] [facility] [address] [place] [address] [place] [address] ext. [phone] [facility] [address] [address] [place] [address] ext. [phone] [facility] [address] [place] [address] ext. [phone] [facility] [address] [place] [address] MARCELINA BAXTER
--- OUTSIDE RECORDS SUMMARY | 2024-07-26 16:55 | XMS_ITS | Encounter Summary ---
Author Name [facility] [place] [facility] [place] [facility] [place] Address [address] [place] [address] Care Team Providers Care Surface Plate Finisher Name Role Phone WAYNE WHEATLEY Primary Care [...] Name Patient's Relationship to Policy [facility]) MEDICARE ADVANTAGE [facility] ([facility]) Aug 25, 2001 [facility] ([facility]) [id number] TIERNEYADRIANA RUSSO JOHN PATIENT MEDICARE ([facility]) MEDICARE (M) PART A Oct 23, 2016 PART A [id number] QUE GELLER PATIENT MEDICARE ([facility]) MEDICARE (M) PART B Oct 23, 2016 PART B [id number] QUE GELLER PATIENT MEDICARE ([facility]) MEDICARE (M) PART B Jul 25, 2011 PART B [id number] 97A QUE GELLER PATIENT MEDICARE ([facility]) MEDICARE (M) PART B Jul 25, 2011 PART B [id number] 97A QUE GELLER PATIENT MEDICARE (WNR) MEDICARE (M) PART B Jul 25, 2011 PART B [id number] [phone] QUE GELLER PATIENT MEDICARE (WNR) MEDICARE (M) PART A Apr 24, 2004 PART A [id number] 97A QUE GELLER PATIENT MEDICARE (WNR) MEDICARE (M) PART A Apr 24, 2004 PART A [id number] 97A QUE GELLER PATIENT MEDICARE (WNR) MEDICARE (M) PART A Apr 24, 2004 PART A [id number] QUE GELLER PATIENT Selected Encounter This section includes the information on record at [place] for the Encounter. Date/Time Encounter Type Encounter Description Reason Provider Source Oct 20, 2023 03:30 PM OFFICE O/P EST MOD 30 MIN NEUROLOGY ICD-10-CM M54.50 Low back pain, unspecified SONIA BAIN [facility] Encounter Template Text not used by [place] Assessments - Encounter Diagnoses This section includes the primary and secondary diagnoses documented for the Encounter. Date/Time Primary/Secondary Diagnosis Diagnosis Name Provider Source Oct 20, 2023 04:46 PM PRIMARY Low back pain, unspecified SONIA BAIN [place] [facility] [place] [facility] Oct 20, 2023 04:46 PM SECONDARY Other chronic pain [facility]AIN [place] [facility] [place] [facility] Plan of Treatment: Future Appointments (+ 6 months) and Future Tests (+/- 45 days) The Plan of Treatment section includes future care activities for the patient from all [place] treatmentfacilities. This section includes future appointments and future orders which are active, pending or scheduled. Future Appointments This section includes appointments that were scheduled to occur 6 months from the date of the Encounter, up to a maximum of 20 appointments. The data comes from all [place] treatment facilities. Appointment Date/Time Appointment Type Appointme nt Facility Name Nov 18, 2023 02:15 PM AMBULATORY - MEDICINE [facility] [place] [facility] Mar 22, 2024 11:00 AM AMBULATORY - MEDICINE [facility] Apr 11, 2024 01:00 PM [facility] Vital Signs: All taken on the encounter date This section contains inpatient and outpatient Vital Signs collected on the date of the Encounter. Date/Time Temperature Pulse Blood Pressure Respiratory Rate SP02 Pain Height Weight Body Mass Index Source Oct 20, 2023 03:47 PM 98 103 140/77 18 97 4 209.4 31 [facility] Social History: Smoking Status (Most current) and Tobacco Use (All prior to encounter date) This section includes the most current, and the historical, smoking and tobacco- related health factors from the [place] facility where the Encounter took place. Current Smoking Status This section includes the most current smoking, or tobacco-related health factor, from the [place] facility where the Encounter took place. Date/Time Current Smoking Status Comment Facil ity Mar 26, 2021 02:25 PM VA-TOBACCO NEVER USED [facility] Advance Directives: All historical and current Section Date Range: From patient's date of to the date document was created. This section includes ALL of a patient's completed or amended [place] Advance and Rescinded Directives. The entries below indicate that a directive exists for the patient, but an actual copy is not included with this document. The data comes from all [place] facilities. Date Advance Directives Provider Source Nov 04, 2016 ADVANCE DIRECTIVE [facility]UTIA [facility] Encounter Notes: All associated encounter notes This section contains the clinical notes associated to the Encounter. Date/Time Encounter Note(s) Provider Source Oct 20, 2023 04:16 PM NEUROLOGY OUTPATIE NT NOTE: LOCAL TITLE: NEUROLOGY CLINIC NOTE STANDARD TITLE: NEUROLOGY OUTPATIENT NOTE DATE OF NOTE: OCT 20, 2023@16:16 ENTRY DATE: OCT 20, 2023@16:16:49 AUTHOR: SONIA BAIN COSIGNER: URGENCY: STATUS: COMPLETED Chief Complaint: chronic pain Interval Hx Sep Pt reports that he continues to experience severe pain generally, most especially in his neck, his shoulders, his upper and lower back, his scrotum, and his legs and feet. He has spinal infusor in place, which has been filled and was recently re-filled, but has not provided much benefit. He is being evaluated for further surgeries on his neck, reportedly. He has his SCS still in place, though it has never provided any benefit. He has gotten acupx, without any benefit. He took himself off of the lyrica, b/c he felt it was affecting his stomach adversely. He thinks the stomach issues improved when he stopped, and is not interested in restarting; he is also being seen by GI for his stomach issues. He continues to see pain management, though he does not think that they have been of any help. He continues to be seen by neurosurgery, as well. Last imaging of the C+T spine were in 2021; there is no imaging of L-spine on record or that he remembers. He had fall last year, resulting in significant injuries to ribs on the R side. The fall occurred due to LH while he was standing up in the kitchen. He often feels LH and feels 'pulsation' in the head when he first stands up from a sitting position, lasting 30 seconds before resolving fully. He says that he continues to experience discoloration of the lower legs and feet, and has been noticing increasing prominence of the blood vessels. Feet sometimes fall asleep when standing too long without moving. Different positions (bending over a shopping cart, lying down) are of only moderate additional benefit. He continues to wonder if his multiple high amperage electrical injuries have anything to do with his pain. He will continue to work on these issues with his pain team. Pt o/w denies any new issues, illness, injuries, hospitalizations, or concerns. NEUROLOGIC EXAM: Gen: WD WN WM in NAD, appropriate affect, eye contact and social interaction. MS: AAO to Person/Place/Situation Able to maintain attention to conversation and follow directions on exam without distractability, impersistence, or perseveration. Fluent language and intact comprehension, without any paraphasic errors. Normal prosody and word variability/richness. Vitals Enter at: Oct 20, 2023@15:47:08 BP: 140/77 P: 103 R: 18 T: 98 209.4 lb [94.98 kg] (10/20/2023 15:47) Assessment/Plan: 72 y/o M w/chronic multifocal pain, including neck, mid/lower back, BLE extending into the feet. Has spinal infusor and SCS, which are of minimal or no benefit. Continues to see neurosurgery and Pain Clinic team about his pain. It is not impossible that his prior electrical injuries could be related to his pain, though I suspect that lumbar radiculopathy may also be related to his leg, back, and scrotum pain/itching that he reports. He will discuss getting MRI of the L-spine with his team, though presence of SCS and spinal infusor may preclude that option through MRI, and CT may be of minimal benefit due to lack of resolution of relevant structures, especially given the metal in place. He self-d/c'd his pregabalin, though continues on his infused baclofen. He will discuss with his pain team additional options for pain evaluation and control, including: -duloxetine, topiramate, ketamine infusions -consider MRI L-spine, if feasible He has been experiencing episodes of LH w/rapid standing, or prolonged standing. We discussed hydration, taking a pause of 30 second between transitions from lying->sitting->standing- >walking. -These have mostly resolved, but if recurrence or worsening, his PCM can have him evaluated via tilt table testing. Sonia Bain MD Staff Neurologist [facility] ~30 mins spent on exam, assessment, counseling, and coordination [ X ] Management of Neurologic Condition was reassessed, taking into account pt's complex other medical issues and medications. [ X ] ~50% of exam was spent on discussion and education or coordination Medication Rec per Legal Activity Adjudicator Nursing note on Sep@16:17. NO DISCREPANCIES FOUND other than those listed in note. The patient's medication list/medication history to include Local Active VA Prescriptions, Remote Active VA Prescriptions, Non-VA medications, Recently VA Prescriptions (90-180 days), Recently Discontinued VA Prescriptions (90-180 days), and Pending Medication Orders where relevant (e.g., patient is seen by multiple providers in the same day) was compared with CPRS and reviewed with the patient/caregiver and reconciled. Any changes in medications and any medications prescribed by this provider discontinued are documented in this note. Medications not prescribed by this provider will be addressed by pt's PCM or appropriate specialty provider. Discussed risks and possible benefits and mechanism of action of medications prescribed. Pt indicated understanding of the risks of medications, and all questions were answered to pt's satisfaction Neurosurgery note 2020 It was a great pleasure seeing El in followup. I originally operated on El in 02/2019 with an ACDF at C5-C6 for his left upper extremity weakness. El was then seen in the offce 8 months later in 10/2019 with continued left pain in the trapezius and interseapular area. There is no report of any radieulopathy. He was sent to pain management. In the interim, Martha has undergone numerous coriisone injections and trigger point injections. He has had his shoulders checked oat and according to him, the shoulders cleared by [facility]. El is now off of all ofhis pain medications. He said he went cold turkey. He reports a terrible neck pain, but it is mostly neck pain and interscapular trapezius pain. On occasion, he will get numbness and tingling in both of his upper extremities, left greater than right. The numbness and tingling is in the 2nd and 3rd digits of both ofhis hands. Incidentally, he had both carpal tunnel was released [address] Mak. He says that his pain is worse when he lifts his head up as well as raises his arms were at that point, he will get debilitating pain in the neck and shoulders. On examination, he was intact with the exception of numbness and tingling in both hands only in the 2nd and 3rd digits. He walks with a severely stooped posture and is supported by a cane. He told me that he has 2 pain patches currently on his lower back. H? has a spinal cord stimulator, which is about to be removed and replaced with a pain pump because his pain levels are so intolerable. I am somewhat concerned that the lower back pain and overall body pain is also manifesting in the neck, which would possibly remove this from being a pain that is surgically amenable. 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 I told El that I am concerned about that. He was certainly understanding ofthat, especially given his current situation. I will see him back to review the results of the MRI. It was a pleasure contributing to his care. /jose cruz/ SONIA BAIN MD PHYSICIAN Signed: 10/20/2023 16:46 SONIA BAIN [facility]
--- OUTSIDE RECORDS SUMMARY | 2024-07-26 16:55 | XMS_ITS | Encounter Summary ---
Author Name [facility] [place] Organization [place] Address [address] [place] [address] Care Team Providers Care Resource Conservationist Name Role Phone WAYNE WHEATLEY Primary Care [...] Name Patient's Relationship to Policy [facility]) MEDICARE ADVANTAGE [facility] ([facility]) Aug 25, 2001 [facility] ([facility]) [id number] [phone] ADRIANA GELLER PATIENT MEDICARE ([facility]) MEDICARE (M) PART A Oct 23, 2016 PART A [id number] [phone] QUE GELLER PATIENT MEDICARE ([facility]) MEDICARE () PART B Oct 23, 2016 PART B [id number] QUE GELLER PATIENT MEDICARE ([facility]) MEDICARE (M) PART B Jul 25, 2011 PART B [id number] 97A QUE GELLER PATIENT MEDICARE ([facility]) MEDICARE (M) PART B Jul 25, 2011 PART B [id number] [phone] QUE GELLER PATIENT MEDICARE (WNR) MEDICARE (M) PART B Jul 25, 2011 PART B [id number] QUE GELLER PATIENT MEDICARE (WNR) MEDICARE (M) PART A Apr 24, 2004 PART A [id number] [phone] QUE GELLER PATIENT MEDICARE (WNR) MEDICARE (M) PART A Apr 24, 2004 PART A [id number] 97A QUE GELLER PATIENT MEDICARE (WNR) MEDICARE (M) PART A Apr 24, 2004 PART A [id number] QUE GELLER PATIENT Selected Encounter This section includes the information on record at [place] for the Encounter. Date/Time Encounter Type Encounter Description Reason Pro vider Source Oct 25, 2023 04:27 PM Outpatient Encounter PODIATRY IHE Encounter Template Text not used by [place] Plan of Treatment: Future Appointments (+ 6 months) and Future Tests (+/- 45 days) The Plan of Treatment section includes future care activities for the patient from all [place] treatmentfacilities. This section includes future appointments and future orders which are active, pending or scheduled. Future Appointments This section includes appointments that were scheduled to occur 6 months from the date of the Encounter, up to a maximum of 20 appointments. The data comes from all [place] treatment facilities. Appointment Date/Time Appointment Type Appointme nt Facility Name Nov 18, 2023 02:15 PM AMBULATORY - MEDICINE [place] C [facility] Mar 22, 2024 11:00 AM [facility] Apr 11, 2024 01:00 PM AMBULATORY - [facility]ICINE [facility] Apr 24, 2024 01:00 PM AMBULATORY - MEDICINE [facility] Apr 25, 2024 04:00 PM AMBULATORY - NONE [facility] Lab Results: +/- 30 days of the encounter This section includes the Chemistry and Hematology Lab Results on record with [place] for the patient. Radiology Reports and Pathology Reports are provided separately, in subsequent sections. Lab Results This section contains the Chemistry/Hematology Results that were resulted 30 days before or 30 daysafter the date of the Encounter. Date/Time Source Result Type Result - Unit Interpretation Reference Range Comment November 23, 2023 01:22 PM [place] IRON & TIBC PANEL Specimen Type: SERUM No comment entered. Ordering Provider: BHAVANI BYRD Report Released Date/Time: Oct 05, 2023 03:45 PM Reporting Lab: [facility] [address] Performing Lab: [facility]OSPITALRL [facility]PITALUSETS [address] [address] TIBC 268 ug/dL 204-475 IRON 40 ug/dL 40-160 Transferrin Saturation 14.9 L 20.0-50.0 November 23, 2023 01:22 PM [place] VITAMIN D (25-OH) Specimen Type: SERUM No comment entered. Ordering Provider: BHAVANI BYRD Report Released Date/Time: Oct 05, 2023 03:45 PM Reporting Lab: [facility] [address] [address] Performing Lab: [facility] [address] VITAMIN D (25-OH) 26 ng/mL 20-50 November 23, 2023 01:22 PM [place] FERRITIN Specimen Type: SERUM No comment entered. Ordering Provider: BHAVANI BYRD Report Released Date/Time: Oct 05, 2023 03:45 PM Reporting Lab: [facility]ITALR[facility]ITALUSE[address] [address] Performing Lab: [facility] [address] FERRITIN 213 ng/mL 20-300 November 23, 2023 01:22 PM [place] TSH Specimen Type: SERUM No comment entered. Ordering Provider: BHAVANI BYRD Report Released Date/Time: Oct 05, 2023 03:45 PM Reporting Lab: [facility]OSPITALRTAYLOR HARD[facility]ICAL FACILITYTRN [facility]PITALUSETS [address] [address] Performing Lab: [facility]ITALR[facility]ITALUSE[address] [address] TSH 7.13 u[IU]/mL H 0.35-5.00 November 23, 2023 01:22 PM [place] HEMOGLOBIN A1C PANEL Specimen Type: BLOOD Comment: Values obtained from A1C measurements can vary. For atypical A1C assays, a reported value of 7.0 could actually be between 6.72 and 7.28 if measured by a reference method. A reported value of 9.0 could actually be between 8.73 and 9.27. Ref: http://www.ngs p.org/CAPdata. asp Ordering Provider: BHAVANI BYRD Report Released Date/Time: Oct 05, 2023 03:45 PM Reporting Lab: [address] [address] Performing Lab: [address] [address] HEMOGLOBIN A1C 5.5 4.0-5.6 November 23, 2023 01:22 PM [place] BASIC METABOLIC PANEL (non-fasting) Spe cimen Type: SERUM No comment entered. Ordering Provider: BHAVANI BYRD Report Released Date/Time: Oct 05, 2023 03:45 PM Reporting Lab: [address] [address] Performing Lab: [address] [address] UREA NITROGEN 30 mg/dL H 7-25 GLUCOSE 137 mg/dL H 65-100 SODIUM 137 mmol/L 135-145 POTASSIUM 4.3 mmol/L 3.5-5.0 CHLORIDE 104 mmol/L 100-110 CO2 23 meq/L 20-30 CREATININE, Serum 1.10 mg/dL 0.50-1.40 eGFR(CKD-EPI 2020) 71 mL/min >60 November 23, 2023 01:22 PM [place] LIPID PANEL, NON FASTING Specimen Type: SERUM No comment entered. Ordering Provider: BHAVANI BYRD Report Released Date/Time: Oct 05, 2023 03:45 PM Reporting Lab: [address] [address] Performing Lab: [address] [address] CHOLESTEROL 137 mg/dL TRIGLYCERIDE 113 mg/dL 0-150 LDL calculated 72 mg/dL 0-129 CHOL/HDL 3.3 HDL CHOLESTEROL 42 mg/dL 40-60 November 23, 2023 01:22 PM [place] LIVER FUNCTION Specimen Type: SERUM No comment entered. Ordering Provider: BHAVANI BYRD Report Released Date/Time: Oct 05, 2023 03:45 PM Reporting Lab: [address] [address] Performing Lab: [address] [address] PROTEIN,TOTAL 7.2 g/dL 6.0-8.3 ALBUMIN 3.9 g/dL 3.5-5.0 ALKALINE PHOSPHATASE 78 U/L 40-150 AST 21 U/L 5-34 ALT 14 U/L BILIRUBIN, TOTAL 0.4 mg/dL 0.2-1.2 November 23, 2023 01:22 PM [place] CBC AND DIFF (AUTO) Specimen Type: BLOOD No comment entered. Ordering Provider: BHAVANI BYRD Report Released Date/Time: Oct 05, 2023 03:45 PM Reporting Lab: [address] [address] Performing Lab: [address] [address] WBC 6.91 10*3/uL 4.50-11.00 RBC 4.81 10*6/uL 4.23-5.66 HGB 11.0 g/dL L 12.8-17 HCT 34.6 L 39.2-50.4 MCV 71.9 fL L 82-99 MCHC 31.8 g/dL 30.8-35.1 PLT 310 10*3/uL 140-360 RDW-CV 14.8 12.0-16.0 [place], Abs 0.71 10*3/uL 0.30-1.10 MCH 22.9 pg L 26.2-32.6 Neut % 53.5 43.7-75.8 Lymph % 27.4 14.0-42.3 [place] % 10.3 5.1-13.7 Eos % 7.2 H 0.4-6.8 Baso % 1.2 0.1-2.0 Neut, Abs 3.70 10*3/uL 2.20-7.60 Lymph, Abs 1.89 10*3/uL 1.00-3.20 Eos, Abs 0.50 10*3/uL H 0.03-0.44 Baso, Abs 0.08 10*3/uL 0.01-0.13 Immature Gran % 0.4 0.0-0.7 Immature Gran, Abs 0.03 10*3/uL 0.00-0.06 November 23, 2023 01:22 PM [place] THYROID TOTAL T3 Specimen Type: SERUM Comment: ref range 35-193 Ordering Provider: WAYNE WHEATLEY Report Released Date/Time: Nov 16, 2023 02:28 PM Reporting Lab: [facility]PITALUSETS [facility] [address] [facility] [address] Performing Lab: [facility]ERN [facility]PITALUSETS [facility] [address] [facility] [address] THYROID TOTAL T3 109.30 ng/dL November 23, 2023 01:22 PM [place] THYROID T4 FREE(FT4) (WROX) Specimen Ty pe: SERUM No comment entered. Ordering Provider: WAYNE WHEATLEY Report Released Date/Time: Nov 16, 2023 02:28 PM Reporting Lab: [facility]PITALUSEMOHAWK [facility] [address] [facility] [address] Performing Lab: [facility]ERN [facility]PITALUSETS [facility] [address] [facility] [address] THYROID T4 FREE(FT4) (WROX) 0.90 ng/dL 0.6-1.6 November 23, 2023 01:22 PM [place] CALCIUM Specimen Type: SERUM No comment entered. Ordering Provider: WAYNE WHEATLEY Report Released Date/Time: Nov 16, 2023 02:28 PM Reporting Lab: [facility]ERN [facility]PITALUSEMOHAWK [facility] [address] [facility] [address] Performing Lab: [facility]ERN [facility]PITALUSEMOHAWK [facility] [address] [facility] [address] CALCIUM 9.4 mg/dL 8.5-10.2 November 23, 2023 01:22 PM [place] TSH Specimen Type: SERUM No comment entered. Ordering Provider: WAYNE WHEATLEY Report Released Date/Time: Nov 16, 2023 02:28 PM Reporting Lab: [facility]OSPITALRST. VINC[facility]N [facility]OSPITALUSETS [facility] [address] [facility] [address] Performing Lab: [place] [facility] [place] [facility] [address] [facility] [address] TSH 7.25 u[IU]/mL H 0.35-5.00 Social History: Smoking Status (Most current) and Tobacco Use (All prior to encounter date) This section includes the most current, and the historical, smoking and tobacco- related health factors from the [place] facility where the Encounter took place. Current Smoking Status This section includes the most current smoking, or tobacco-related health factor, from the [place] facility where the Encounter took place. Date/Time Current Smoking Status Comment Facil ity Mar 26, 2021 02:25 PM VA-TOBACCO NEVER USED [place] CNTR [place] [facility] Advance Directives: All historical and current Section Date Range: From patient's date of to the date document was created. This section includes ALL of a patient's completed or amended VA Advance and Rescinded Directives. The entries below indicate that a directive exists for the patient, but an actual copy is not included with this document. The data comes from all [place] facilities. Date Advance Directives Provider Source Nov 04, 2016 ADVANCE DIRECTIVE RONY URRUTIA [place] CNTR L [place] [facility] Encounter Notes: All associated encounter notes This section contains the clinical notes associated to the Encounter. Date/Time Encounter Note(s) Provider Source Oct 25, 2023 04:27 PM TELEPHONE ENCOUNTE R NOTE: LOCAL TITLE: TELEPHONE NOTE/SPECIALTY CLINIC STANDARD TITLE: TELEPHONE ENCOUNTER NOTE DATE OF NOTE: OCT 25, 2023@16:27 ENTRY DATE: OCT 25, 2023@16:27:18 AUTHOR: MARCELINA BAXTER EXP COSIGNER: URGENCY: STATUS: COMPLETED Called pt and LM to c/b and reschedule Podiatry appointment cancelled for 10/25/2023 by patient. Letter mailed. /jose cruz/ MARCELINA OLEARY Signed: 10/25/2023 16:27 MARCELINA BAXTER [place]
--- OUTSIDE RECORDS SUMMARY | 2024-07-26 16:55 | XMS_ITS | Encounter Summary ---
Author Name [place] Organization [place] Address [address] [place] [address] Care Team Providers Care Heater Installer Name Role Phone WAYNE WHEATLEY Primary [facility] Insurance Providers: All historical and current [...] Name Patient's Relationship to Policy [facility]) MEDICARE ADVANTAGE [facility] ([facility]) Aug 25, 2001 [facility] ([facility]) [id number] ADRIANA GELLER PATIENT MEDICARE ([facility]) MEDICARE () PART A Oct 23, 2016 PART A [id number] QUE GELLER PATIENT MEDICARE ([facility]) MEDICARE () PART B Oct 23, 2016 PART B [id number] QUE GELLER PATIENT MEDICARE ([facility]) MEDICARE () PART B Jul 25, 2011 PART B [id number] [phone] QUE GELLER PATIENT MEDICARE ([facility]) MEDICARE (M) PART B Jul 25, 2011 PART B [id number] 97A QUE GELLER PATIENT MEDICARE (WNR) MEDICARE (M) PART B Jul 25, 2011 PART B [id number] QUE GELLER PATIENT MEDICARE (WNR) MEDICARE (M) PART A Apr 24, 2004 PART A [id number] 97A QUE GELLER PATIENT MEDICARE (WNR) MEDICARE (M) PART A Apr 24, 2004 PART A [id number] 97A QUE GELLER PATIENT MEDICARE (WNR) MEDICARE (M) PART A Apr 24, 2004 PART A [id number] QUE GELLER PATIENT Selected Encounter This section includes the information on record at CT for the Encounter. Date/Time Encounter Type Encounter Description Reason Pro vider Source IHE Encounter Template Text not used by CT Advance Directives: All historical and current Section Date Range: From patient's date of to the date document was created. This section includes ALL of a patient's completed or amended CT Advance and Rescinded Directives. The entries below indicate that a directive exists for the patient, but an actual copy is not included with this document. The data comes from all CT facilities. Date Advance Directives Provider Source Nov 04, 2016 ADV[address] URRUTIA [address] CNTR L EDERTRZeina MARTINEZ [facility]
--- OUTSIDE RECORDS SUMMARY | 2024-07-26 16:56 | XMS_ITS | Encounter Summary ---
Author Name [place] Address [address] [place] [address] Care Team Providers Care Burning Machine Operator Name Role Phone WAYNE WHEATLEY Primary Care [...] Name Patient's Relationship to Policy [facility]) MEDICARE ADVANTAGE [facility] ([facility]) Aug 25, 2001 [facility] ([facility]) [id number] [phone] ODMADRIANA SALINAS JOHN PATIENT MEDICARE ([facility]) MEDICARE (M) PART A Oct 23, 2016 PART A [id number] QUE GELLER PATIENT MEDICARE ([facility]) MEDICARE (M) PART B Oct 23, 2016 PART B [id number] [id number] QUE GELLER PATIENT MEDICARE ([facility]) MEDICARE (M) PART B Jul 25, 2011 PART B [id number] 97A QUE GELLER PATIENT MEDICARE ([facility]) MEDICARE (M) PART B Jul 25, 2011 PART B [id number] 97A QUE GELLER PATIENT MEDICARE (WNR) MEDICARE (M) PART B Jul 25, 2011 PART B [id number] QUE GELLER PATIENT MEDICARE (WNR) MEDICARE (M) PART A Apr 24, 2004 PART A [id number] 97A QUE GELLER PATIENT MEDICARE (WNR) MEDICARE (M) PART A Apr 24, 2004 PART A [id number] QUE GELLER PATIENT MEDICARE (WNR) MEDICARE (M) PART A Apr 24, 2004 PART A [id number] 97A QUE GELLER PATIENT Selected Encounter This section includes the information on record at [place] for the Encounter. Date/Time Encounter Type Encounter Description Reason Pro vider Source Aug 18, 2023 06:57 PM Outpatient Encounter ADMIN PAT ACTIVTIES (MASNONCT) IHE Encounter Template Text not used by [place] Plan of Treatment: Future Appointments (+ 6 months) and Future Tests (+/- 45 days) The Plan of Treatment section includes future care activities for the patient from all [place] treatmentfacilities. This section includes future appointments and future orders which are active, pending or scheduled. Future Appointments This section includes appointments that were scheduled to occur 6 months from the date of the Encounter, up to a maximum of 20 appointments. The data comes from all [place] treatment facilities. Appointment Date/Time Appointment Type Appointme nt Facility Name Aug 24, 2023 03:45 PM AMBULATORY - NONE [place] [facility] Oct 05, 2023 03:00 PM [facility] Oct 20, 2023 03:30 PM AMBULATORY - NEUROLOGY [place] [facility] Nov 18, 2023 02:15 PM AMBULATORY - MEDICINE [facility] Social History: Smoking Status (Most current) [...] 26, 2021 02:25 PM VA-TOBACCO NEVER USED [place] CNTRL [facility] Advance Directives: All historical and current Section Date Range: From patient's date of to the date document was created. This section includes ALL of a patient's completed or amended VA Advance and Rescinded Directives. The entries below indicate that a directive exists for the patient, but an actual copy is not included with this document. The data comes from all [place] facilities. Date Advance Directives Provider Source Nov 04, 2016 ADVANCE DIRECTIVE RONY URRUTIA [place] [facility] Encounter Notes: All associated encounter notes This section contains the clinical notes associated to the Encounter. Date/Time Encounter Note(s) Provider Source Aug 18, 2023 06:57 PM PHARMACY NOTE: LOCAL TITLE: V1 PHARMACY CUSTOMER CARE MEDICATION RENEWAL STANDARD TITLE: PHARMACY NOTE DATE OF NOTE: AUG 18, 2023@18:57 ENTRY DATE: AUG 18, 2023@18:57:33 AUTHOR: FATEMEH MARIE I EXP COSIGNER: URGENCY: STATUS: COMPLETED V1 PHARMACY CUSTOMER CARE MEDICATION RENEWAL Has ADDENDA Date: Jul Division: [facility] referred by Pharmacy Call Center for medication renewal: Non-controlled/maintenanc e medication Medications requested: [id number] LEVOTHYROXINE NA (SYNTHROID) 125MCG TAB [id number] SIMVASTATIN 20MG TAB Patient contacted pharmacy call center again regarding status of: [id number] LEVOTHYROXINE NA (SYNTHROID) 125MCG TAB [id number] SIMVASTATIN 20MG TAB Please review and renew if appropriate. Defer to primary care provider To be mailed . Please review and renew if appropriate. *This note was generated by [facility]/ID Pharmacy Customer Care. If you have any questions or need assistance, do not contact this author. Please refer all questions to your local, on-site pharmacy departments. /jose cruz/ FATEMEH MARIE [facility] QUALITY CONTROL COORDINATOR,ID/PHARMACY CUSTOMER CARE Signed: 08/18/2023 18:58 Receipt Acknowledged By: 08/22/2023 08:53 /es/ BHAVANI BYRD MD PHYSICIAN 08/23/2023 10:29 /es/ VICENTA BROWN RN REGISTERED NURSE 08/19/2023 ADDENDUM STATUS: COMPLETED [place] contacted via telephone. States he will report to [facility] on Tuesday morning (08/22/23) for fasting labs to ensure appropriate medication dosage is ordered. /jose cruz/ VICENTA SHERIDAN RN REGISTERED NURSE Signed: 08/19/2023 10:01 08/23/2023 ADDENDUM STATUS: COMPLETED [place] did not report to [facility] for labs as requested. Attempted to contact via telephone to remind of request. Unable to leave message as both numbers have non-descript or different name stated on voicemail. /jose cruz/ VICENTA SHERIDAN RN REGISTERED NURSE Signed: 08/23/2023 10:29 FATEMEH MARIE I [place] [facility]L [facility]
--- OUTSIDE RECORDS SUMMARY | 2024-07-26 16:56 | XMS_ITS | Encounter Summary ---
Author Name Department of [place] Organization [place] Address [address] [place] [address] Care Team Providers Care Die Repair Name Role Phone WAYNE WHEATLEY Primary Care [...] [facility]) MEDICARE ADVANTAGE [facility] ([facility]) Aug 25, 2001 [facility] ([facility]) [id number] ADRIANA GELLER PATIENT MEDICARE ([facility]) MEDICARE () PART A Oct 23, 2016 PART A [id number] [phone] QUE GELLER PATIENT MEDICARE ([facility]) MEDICARE () PART B Oct 23, 2016 PART B [id number] QUE GELLER PATIENT MEDICARE ([facility]) MEDICARE () PART B Jul 25, 2011 PART B [id number] 97A QUE GELLER PATIENT MEDICARE ([facility]) MEDICARE (M) PART B Jul 25, 2011 PART B [id number] 97A QUE GELLER PATIENT MEDICARE (WNR) MEDICARE (M) PART B Jul 25, 2011 PART B [id number] QUE GELLER PATIENT MEDICARE (WNR) MEDICARE (M) PART A Apr 24, 2004 PART A [id number] 97A QUE GELLER PATIENT MEDICARE (WNR) MEDICARE (M) PART A Apr 24, 2004 PART A [id number] [phone] QUE GELLER PATIENT MEDICARE (WNR) MEDICARE (M) PART A Apr 24, 2004 PART A [id number] [place] GELLER PATIENT Selected Encounter This section includes the information on record at [place] for the Encounter. Date/Time Encounter Type Encounter Description Reason Pro vider Source Aug 01, 2023 11:42 AM Outpatient Encounter OPTOMETRY IHE Encounter Template Text not used by ID Plan of Treatment: Future Appointments (+ 6 months) and Future Tests (+/- 45 days) The Plan of Treatment section includes future care activities for the patient from all [place] treatmentfacilities. This section includes future appointments and future orders which are active, pending or scheduled. Future Appointments This section includes appointments that were scheduled to occur 6 months from the date of the Encounter, up to a maximum of 20 appointments. The data comes from all [place] treatment facilities. Appointment Date/Time Appointment Type Appointme nt Facility Name Aug 24, 2023 03:45 PM [facility] Oct 05, 2023 03:00 PM [facility] Oct 20, 2023 03:30 PM [facility] Nov 18, 2023 02:15 PM [facility] Social History: Smoking Status (Most current) [...] 26, 2021 02:25 PM VA-TOBACCO [facility]ED [facility] Advance Directives: All historical and current Section Date Range: From patient's date of to the date document was created. This section includes ALL of a patient's completed or amended [place] Advance and Rescinded Directives. The entries below indicate that a directive exists for the patient, but an actual copy is not included with this document. The data comes from all [place] facilities. Date Advance Directives Provider Source Nov 04, 2016 ADVANCE DIRECTIVE [facility] Encounter Notes: All associated encounter notes This section contains the clinical notes associated to the Encounter. Date/Time Encounter Note(s) Provider Source Aug 01, 2023 11:42 AM ADMINISTRATIVE NOTE: LOCAL TITLE: ADMINISTRATIVE NOTE STANDARD TITLE: ADMINISTRATIVE NOTE DATE OF NOTE: AUG 01, 2023@11:42 ENTRY DATE: AUG 01, 2023@11:42:47 AUTHOR: HOLLY MARSHALL COSIGNER: URGENCY: STATUS: COMPLETED Called and left message on voicemail. Patients appointment with optometry on 12/29/2023 has been cancelled and needs to be rescheduled with a PID of 11/18/2023 Letter mailed. /jose cruz/ HOLLY MARSHALL ADVANCED MARITIME OFFICER Signed: 08/01/2023 11:43 HOLLY MARSHALL [facility]
--- OUTSIDE RECORDS SUMMARY | 2024-07-26 16:56 | XMS_ITS | Encounter Summary ---
Author Name [facility] [place] [facility] [place] Address [address] [place] [address] Care Team Providers Care Bead Builder Name Role Phone WAYNE WHEATLEY Primary Care [...] Name Patient's Relationship to Policy [facility]) MEDICARE ADVANTAGE [facility] ([facility]) Aug 25, 2001 [facility] ([facility]) [id number] DOMADRIANA SALINAS JOHN PATIENT MEDICARE ([facility]) MEDICARE (M) PART A Oct 23, 2016 PART A [id number] QUE GELLER PATIENT MEDICARE ([facility]) MEDICARE (M) PART B Oct 23, 2016 PART B [id number] QUE GELLRE PATIENT MEDICARE ([facility]) MEDICARE (M) PART B Jul 25, 2011 PART B [id number] QUE GELLER PATIENT MEDICARE ([facility]) MEDICARE (M) PART B Jul 25, 2011 PART B [id number] QUE GELLER PATIENT MEDICARE (WNR) MEDICARE (M) PART B Jul 25, 2011 PART B [id number] QUE GELLER PATIENT MEDICARE (WNR) MEDICARE (M) PART A Apr 24, 2004 PART A [id number] QUE GELLER PATIENT MEDICARE (WNR) MEDICARE (M) PART A Apr 24, 2004 PART A [id number] 97A QUE GELLER PATIENT MEDICARE (WNR) MEDICARE (M) PART A Apr 24, 2004 PART A [id number] QUE GELLER PATIENT Selected Encounter This section includes the information on record at [place] for the Encounter. Date/Time Encounter Type Encounter Description Reason Pro vider Source Nov 16, 2023 02:01 PM Outpatient Encounter ADMIN PAT ACTIVTIES ([facility]) IHE Encounter Template Text not used by [place] Plan of Treatment: Future Appointments (+ 6 months) and Future Tests (+/- 45 days) The Plan of Treatment section includes future care activities for the patient from all [place] treatmentfacilities. This section includes future appointments and future orders which are active, pending or scheduled. Future Appointments This section includes appointments that were scheduled to occur 6 months from the date of the Encounter, up to a maximum of 20 appointments. The data comes from all [place] treatment facilities. Appointment Date/Time Appointment Type Appointme nt Facility Name Nov 18, 2023 02:15 PM AMBULATORY - MEDICINE [place] [facility] [place] [facility] Mar 22, 2024 11:00 AM AM[facility]ORY - [place]IC[place] Apr 11, 2024 01:00 PM AMBULATORY - [place]ICINE [place] [facility] [place] [facility] Apr 24, 2024 01:00 PM [facility]ORY - [facility]IC[facility] [place] Apr 25, 2024 04:00 PM AMBULATORY - NONE [facility] [place] [facility] Apr 26, 2024 08:50 AM AMBULATORY - MEDICINE [facility] [place] [facility] May 14, 2024 03:00 PM AMBULATORY - MEDICINE [facility] [place] [facility] May 14, 2024 03:30 PM AMBULATORY - MEDICINE [facility] Lab Results: +/- 30 days of the encounter This section includes the Chemistry and Hematology Lab Results on record with [place] for the patient. Radiology Reports and Pathology Reports are provided separately, in subsequent sections. Lab Results This section contains the Chemistry/Hematology Results that were resulted 30 days before or 30 daysafter the date of the Encounter. Date/Time Source Result Type Result - Unit Interpretation Reference Range Comment November 23, 2023 01:22 PM [facility] FERRITIN Specimen Type: SERUM No comment entered. Ordering Provider: BHAVANI BYRD Report Released Date/Time: Oct 05, 2023 03:45 PM Reporting Lab: [address] [address] Performing Lab: [address] [address] FERRITIN 213 ng/mL 20-300 November 23, 2023 01:22 PM [facility] IRON & TIBC PANEL Specimen Type: SERUM No comment entered. Ordering Provider: BHAVANI BYRD Report Released Date/Time: Oct 05, 2023 03:45 PM Reporting Lab: [address] [address] Performing Lab: [address] [address] TIBC 268 ug/dL 204-475 IRON 40 ug/dL 40-160 Transferrin Saturation 14.9 L 20.0-50.0 November 23, 2023 01:22 PM [facility] VITAMIN D (25-OH) Specimen Type: SERUM No comment entered. Ordering Provider: BHAVANI BYRD Report Released Date/Time: Oct 05, 2023 03:45 PM Reporting Lab: [address] [address] Performing Lab: [address] [address] VITAMIN D (25-OH) 26 ng/mL 20-50 November 23, 2023 01:22 PM [facility] TSH Specimen Type: SERUM No comment entered. Ordering Provider: BHAVANI BYRD Report Released Date/Time: Oct 05, 2023 03:45 PM Reporting Lab: [address] [address] Performing Lab: [address] [address] TSH 7.13 u[IU]/mL H 0.35-5.00 November 23, 2023 01:22 PM [facility] HEMOGLOBIN A1C PANEL Specimen Type: BLOOD Comment: [...] Oct 05, 2023 03:45 PM Reporting Lab: [address] [address] Performing Lab: [address] [address] HEMOGLOBIN A1C 5.5 4.0-5.6 November 23, 2023 01:22 PM [facility] LIVER FUNCTION Specimen Type: SERUM No comment entered. Ordering Provider: BHAVANI BYRD Report Released Date/Time: Oct 05, 2023 03:45 PM Reporting Lab: [address] [address] Performing Lab: [address] [address] PROTEIN,TOTAL 7.2 g/dL 6.0-8.3 ALBUMIN 3.9 g/dL 3.5-5.0 ALKALINE PHOSPHATASE 78 U/L 40-150 AST 21 U/L 5-34 ALT 14 U/L BILIRUBIN, TOTAL 0.4 mg/dL 0.2-1.2 November 23, 2023 01:22 PM [facility] BASIC METABOLIC PANEL (non-fasting) Spe cimen Type: SERUM No comment entered. Ordering Provider: BHAVANI BYRD Report Released Date/Time: Oct 05, 2023 03:45 PM Reporting Lab: [address] [address] Performing Lab: [address] [address] UREA NITROGEN 30 mg/dL H 7-25 GLUCOSE 137 mg/dL H 65-100 SODIUM 137 mmol/L 135-145 POTASSIUM 4.3 mmol/L 3.5-5.0 CHLORIDE 104 mmol/L 100-110 CO2 23 meq/L 20-30 CREATININE, Serum 1.10 mg/dL 0.50-1.40 eGFR(CKD-EPI 2020) 71 mL/min >60 November 23, 2023 01:22 PM [facility] LIPID PANEL, NON FASTING Specimen Type: SERUM No comment entered. Ordering Provider: BHAVANI BYRD Report Released Date/Time: Oct 05, 2023 03:45 PM Reporting Lab: [address] [address] Performing Lab: [address] [address] CHOLESTEROL 137 mg/dL TRIGLYCERIDE 113 mg/dL 0-150 LDL calculated 72 mg/dL 0-129 CHOL/HDL 3.3 HDL CHOLESTEROL 42 mg/dL 40-60 November 23, 2023 01:22 PM [facility] CBC AND DIFF (AUTO) Specimen Type: BLOOD No comment entered. Ordering Provider: BHAVANI BYRD Report Released Date/Time: Oct 05, 2023 03:45 PM Reporting Lab: [address] [address] Performing Lab: [address] [address] WBC 6.91 10*3/uL 4.50-11.00 RBC 4.81 10*6/uL 4.23-5.66 HGB 11.0 g/dL L 12.8-17 HCT 34.6 L 39.2-50.4 MCV 71.9 fL L 82-99 MCHC 31.8 g/dL 30.8-35.1 PLT 310 10*3/uL 140-360 RDW-CV 14.8 12.0-16.0 [place], Abs 0.71 10*3/uL 0.30-1.10 MCH 22.9 pg L 26.2-32.6 Neut % 53.5 43.7-75.8 Lymph % 27.4 14.0-42.3 [place] % 10.3 5.1-13.7 Eos % 7.2 H 0.4-6.8 Baso % 1.2 0.1-2.0 Neut, Abs 3.70 10*3/uL 2.20-7.60 Lymph, Abs 1.89 10*3/uL 1.00-3.20 Eos, Abs 0.50 10*3/uL H 0.03-0.44 Baso, Abs 0.08 10*3/uL 0.01-0.13 Immature Gran % 0.4 0.0-0.7 Immature Gran, Abs 0.03 10*3/uL 0.00-0.06 November 23, 2023 01:22 PM [facility] THYROID TOTAL T3 Specimen Type: SERUM Comment: ref range 35-193 Ordering Provider: WAYNE WHEATLEY Report Released Date/Time: Nov 16, 2023 02:28 PM Reporting Lab: [address] [address] Performing Lab: [facility] [address] [facility] [address] THYROID TOTAL T3 109.30 ng/dL November 23, 2023 01:22 PM [facility] THYROID T4 FREE(FT4) (WROX) Specimen Ty pe: SERUM No comment entered. Ordering Provider: WAYNE WHEATLEY Report Released Date/Time: Nov 16, 2023 02:28 PM Reporting Lab: [address] [address] Performing Lab: [facility] [address] [facility] [address] THYROID T4 FREE(FT4) (WROX) 0.90 ng/dL 0.6-1.6 November 23, 2023 01:22 PM [facility] CALCIUM Specimen Type: SERUM No comment entered. Ordering Provider: WAYNE WHEATLEY Report Released Date/Time: Nov 16, 2023 02:28 PM Reporting Lab: [facility] [address] [facility] [address] Performing Lab: [facility] [address] [address] CALCIUM 9.4 mg/dL 8.5-10.2 November 23, 2023 01:22 PM [facility] TSH Specimen Type: SERUM No comment entered. Ordering Provider: WAYNE WHEATLEY Report Released Date/Time: Nov 16, 2023 02:28 PM Reporting Lab: [facility] [address] [facility] [address] Performing Lab: [facility] [address] [facility] [address] TSH 7.25 u[IU]/mL H 0.35-5.00 Social History: Smoking Status (Most current) and Tobacco Use (All prior to encounter date) This section includes the most current, and the historical, smoking and tobacco- related health factors from the [place] facility where the Encounter took place. Current Smoking Status This section includes the most current smoking, or tobacco-related health factor, from the [place] facility where the Encounter took place. Date/Time Current Smoking Status Comment Facil ity Mar 26, 2021 02:25 PM VA-TO[facility]ACCO NEVER USED [facility] Advance Directives: All historical and current Section Date Range: From patient's date of to the date document was created. This section includes ALL of a patient's completed or amended [place] Advance and Rescinded Directives. The entries below indicate that a directive exists for the patient, but an actual copy is not included with this document. The data comes from all [place] facilities. Date Advance Directives Provider Source Nov 04, 2016 ADVANCE DIRECTIVE RONY URRUTIA [facility] Encounter Notes: All associated encounter notes This section contains the clinical notes associated to the Encounter. Date/Time Encounter Note(s) Provider Source Nov 20, 2023 11:16 AM ADDENDUM: LOCAL TITLE: Addendum STANDARD TITLE: ADDENDUM DATE OF NOTE: NOV 20, 2023@11:16:47 ENTRY DATE: NOV 20, 2023@11:16:48 AUTHOR: BHAVANI BYRD EXP COSIGNER: URGENCY: STATUS: COMPLETED please let vet know to check lab work mike. If sig symptoms from levothyroxine in the AM, then please let him know to take levothyroxine on an empty stomach at bedtime. /es/ BHAVANI BYRD MD PHYSICIAN Signed: 11/20/2023 11:18 Receipt Acknowledged By: 11/22/2023 12:46 /es/ OLI AUSTIN LPN LICENSED PRACTICAL NURSE 11/22/2023 12:52 /es/ BONNIE WILLIS RN REGISTERED NURSE --- Original Document --- 11/16/23 CCC: SCHEDULING ADMINISTRATION: Patient Demographics Patient Name: KAM GELLER Patient Primary Phone: [phone] Patient Primary Address: [address] [place], [place] [address] Patient : 1950 Patient Age: 73 Caller/Recipient Relation to Patient: Self Administrative Administrative Note Reason: Lab / Imaging Results Administrative Note Comments: Radha from [facility] called and stated that they have critical lab results to report to the Primary Care Team. IM sent to the Primary Care Team as well as to the [facility] CWM Assistance Team. No one was available to take the call. Radha will fax the results to the Primary Care Office. Please call Radha back to confirm that the results have been received by the Primary Care Team. She can be reached at [phone]. /es/ TERENCE FORD 1 [facility] Signed: 11/16/2023 14:01 Receipt Acknowledged By: 11/16/2023 16:03 /es/ OLI AUSTIN LPN LICENSED PRACTICAL NURSE 11/16/2023 14:29 /es/ WAYNE WHEATLEY NP NURSE PRACTITIONER for BHAVANI BYRD 11/16/2023 14:26 /es/ BONNIE WILLIS RN REGISTERED NURSE 11/16/2023 ADDENDUM STATUS: COMPLETED Called and spoke to Shelly; informed her of received results. Covering PCP will call . /jose cruz/ BONNIE WILLIS RN REGISTERED NURSE Signed: 11/16/2023 14:25 11/16/2023 ADDENDUM STATUS: COMPLETED Abnormal lab result received from Radha from [facility]: TSH 11.9. I telephoned the patient to inquire regarding symptoms and if he has been taking his prescribed levothyroxine as prescribed. Unfortunately, I was only able to leave a voicemail requesting he call the clinic urgently. Lab orders placed including TSH, T3, free T4, calcium. /es/ WAYNE WHEATLEY NP NURSE PRACTITIONER Signed: 11/16/2023 14:31 Receipt Acknowledged By: 11/20/2023 11:16 /es/ BHAVANI BYRD MD PHYSICIAN 11/16/2023 ADDENDUM STATUS: COMPLETED Called and spoke to . Forwarded covering PCP's message. states he had been taking LT4 previously but has been vomitting and having nausea since he needs to take it on an empty stomach. [facility] further states he did stop taking LT4 the week when lab test was done. [facility] states when has been takin git recently, he has been taking all medications and supplements at the same time. Explained to [facility] iron and calcium should be taken at least 4 hrs after taking LT4 to avoid having a negative interaction w/each other. [facility] understands information and would like to know how to avoid getting sick when taking LT4 on an empty stomach. /es/ BONNIE WILLIS RN REGISTERED NURSE Signed: 11/16/2023 16:12 Receipt Acknowledged By: 11/20/2023 11:13 /jose cruz/ BHAVANI BYRD MD PHYSICIAN 11/22/2023 ADDENDUM STATUS: COMPLETED The was advised to take his levothyroxine at night and he stated that he would come in on 11/23/2023. /es/ OLI AUSTIN LPN LICENSED PRACTICAL NURSE Signed: 11/22/2023 12:48 BHAVANI BYRD [facility] [place] [facility] Nov 16, 2023 04:08 PM ADDENDUM: LOCAL TITLE: Addendum STANDARD TITLE: ADDENDUM DATE OF NOTE: NOV 16, 2023@16:08:40 ENTRY DATE: NOV 16, 2023@16:08:41 AUTHOR: BONNIE WILLIS COSIGNER: URGENCY: STATUS: COMPLETED Called and spoke to [facility]. Forwarded covering PCP's message. states he had been taking LT4 previously but has been vomitting and having nausea since he needs to take it on an empty stomach. further states he did stop taking LT4 the week when lab test was done. states when has been takin git recently, he has been taking all medications and supplements at the same time. Explained to [facility] iron and calcium should be taken at least 4 hrs after taking LT4 to avoid having a negative interaction w/each other. [facility] understands information and would like to know how to avoid getting sick when taking LT4 on an empty stomach. /es/ BONNIE WILLIS RN REGISTERED NURSE Signed: 11/16/2023 16:12 Receipt Acknowledged By: 11/20/2023 11:13 /es/ BHAVANI BYRD MD PHYSICIAN --- Original Document --- 11/16/23 CCC: SCHEDULING ADMINISTRATION: Patient Demographics Patient Name: KAM GELLER Patient Primary Phone: [phone] Patient Primary Address: [address] [place] [address] Patient : 1950 Patient Age: 73 Caller/Recipient Relation to Patient: Self Administrative Administrative Note Reason: Lab / Imaging Results Administrative Note Comments: Radha from [facility] called and stated that they have critical lab results to report to the Primary Care Team. IM sent to the Primary Care Team as well as to the [facility] CWM Assistance Team. No one was available to take the call. Radha will fax the results to the Primary Care Office. Please call Radha back to confirm that the results have been received by the Primary Care Team. She can be reached at [phone]. /es/ TERENCE FORD 1 [facility] Signed: 11/16/2023 14:01 Receipt Acknowledged By: 11/16/2023 16:03 /es/ OLI AUSTIN LPN LICENSED PRACTICAL NURSE 11/16/2023 14:29 /es/ WAYNE WHEATLEY NP NURSE PRACTITIONER for BHAVANI BYRD 11/16/2023 14:26 /es/ BONNIE WILLIS RN REGISTERED NURSE 11/16/2023 ADDENDUM STATUS: COMPLETED Called and spoke to Shelly; informed her of received results. Covering PCP will call [facility]. /jose cruz/ BONNIE WILLIS RN REGISTERED NURSE Signed: 11/16/2023 14:25 11/16/2023 ADDENDUM STATUS: COMPLETED Abnormal lab result received from [facility] from [facility]: TSH 11.9. I telephoned the patient to inquire regarding symptoms and if he has been taking his prescribed levothyroxine as prescribed. Unfortunately, I was only able to leave a voicemail requesting he call the clinic urgently. Lab orders placed including TSH, T3, free T4, calcium. /jose cruz/ WAYNE WHEATLEY NP NURSE PRACTITIONER Signed: 11/16/2023 14:31 Receipt Acknowledged By: * AWAITING SIGNATURE * BHAVANI BYRD MICHELLE [facility] Nov 16, 2023 02:29 PM ADDENDUM: LOCAL TITLE: Addendum STANDARD TITLE: ADDENDUM DATE OF NOTE: NOV 16, 2023@14:29:48 ENTRY DATE: NOV 16, 2023@14:29:49 AUTHOR: WAYNE WHEATLEY EXP COSIGNER: URGENCY: STATUS: COMPLETED Abnormal lab result received from [facility] from [facility]: TSH 11.9. I telephoned the patient to inquire regarding symptoms and if he has been taking his prescribed levothyroxine as prescribed. Unfortunately, I was only able to leave a voicemail requesting he call the clinic urgently. Lab orders placed including TSH, T3, free T4, calcium. /jose cruz/ WAYNE WHEATLEY NP NURSE PRACTITIONER Signed: 11/16/2023 14:31 Receipt Acknowledged By: 11/20/2023 11:16 /jose cruz/ BHAVANI BYRD MD PHYSICIAN --- Original Document --- 11/16/23 CCC: SCHEDULING ADMINISTRATION: Patient Demographics Patient Name: KAM GELLER Patient Primary Phone: [phone] Patient Primary Address: [place] [address] Patient : 1950 Patient Age: 73 Caller/Recipient Relation to Patient: Self Administrative Administrative Note Reason: Lab / Imaging Results Administrative Note Comments: Espinozadimas from [facility] called and stated that they have critical lab results to report to the Primary Care Team. IM sent to the Primary Care Team as well as to the [facility] CWM Assistance Team. No one was available to take the call. Espinozadimas will fax the results to the Primary Care Office. Please call Radha back to confirm that the results have been received by the Primary Care Team. She can be reached at [phone]. /es/ TERENCE FORD 1 [facility] Signed: 11/16/2023 14:01 Receipt Acknowledged By: 11/16/2023 16:03 /es/ OLI AUSTIN LPN LICENSED PRACTICAL NURSE 11/16/2023 14:29 /es/ WAYNE WHEATLEY NP NURSE PRACTITIONER for BHAVANI BYRD 11/16/2023 14:26 /es/ BONNIE WILLIS RN REGISTERED NURSE 11/16/2023 ADDENDUM STATUS: COMPLETED Called and spoke to Shelly; informed her of received results. Covering PCP will call . /es/ BONNIE WILLIS RN REGISTERED NURSE Signed: 11/16/2023 14:25 11/16/2023 ADDENDUM STATUS: COMPLETED Called and spoke to [facility]. Forwarded covering PCP's message. states he had been taking LT4 previously but has been vomitting and having nausea since he needs to take it on an empty stomach. [facility] further states he did stop taking LT4 the week when lab test was done. [facility] states when has been takin git recently, he has been taking all medications and supplements at the same time. Explained to [facility] iron and calcium should be taken at least 4 hrs after taking LT4 to avoid having a negative interaction w/each other. understands information and would like to know how to avoid getting sick when taking LT4 on an empty stomach. /es/ BONNIE WILLIS RN REGISTERED NURSE Signed: 11/16/2023 16:12 Receipt Acknowledged By: 11/20/2023 11:13 /es/ BHAVANI BYRD MD PHYSICIAN WAYNE WHEATLEY [place] [facility] [place] [facility] Nov 16, 2023 02:01 PM ADMINISTRATIVE NOTE: LOCAL TITLE: [facility]: SCHEDULING ADMINISTRATION STANDARD TITLE: ADMINISTRATIVE NOTE DATE OF NOTE: NOV 16, 2023@14:01:42 ENTRY DATE: NOV 16, 2023@14:01:42 AUTHOR: TERENCE JACOBSON EXP COSIGNER: URGENCY: STATUS: COMPLETED CCC: SCHEDULING ADMINISTRATION Has ADDENDA Patient Demographics Patient Name: KAM GELLER Patient Primary Phone: [phone] Patient Primary Address: [address] [place] [address] Patient : 1950 Patient Age: 73 Caller/Recipient Relation to Patient: Self Administrative Administrative Note Reason: Lab / Imaging Results Administrative Note Comments: Radha from [facility] called and stated that they have critical lab results to report to the Primary Care Team. IM sent to the Primary Care Team as well as to the [facility] CWM Assistance Team. No one was available to take the call. Radha will fax the results to the Primary Care Office. Please call Radha back to confirm that the results have been received by the Primary Care Team. She can be reached at [phone]. /jose cruz/ TERENCE FORD 1 [facility] Signed: 11/16/2023 14:01 Receipt Acknowledged By: 11/16/2023 16:03 /es/ OLI AUSTIN LPN LICENSED PRACTICAL NURSE 11/16/2023 14:29 /es/ WAYNE WHEATLEY NP NURSE PRACTITIONER for BHAVANI BYRD 11/16/2023 14:26 /es/ BONNIE WILLIS RN REGISTERED NURSE 11/16/2023 ADDENDUM STATUS: COMPLETED Called and spoke to Shelly; informed her of received results. Covering PCP will call [facility]. /jose cruz/ BONNIE WILLIS RN REGISTERED NURSE Signed: 11/16/2023 14:25 11/16/2023 ADDENDUM STATUS: COMPLETED Abnormal lab result received from Radha from [facility]: TSH 11.9. I telephoned the patient to inquire regarding symptoms and if he has been taking his prescribed levothyroxine as prescribed. Unfortunately, I was only able to leave a voicemail requesting he call the clinic urgently. Lab orders placed including TSH, T3, free T4, calcium. /jose cruz/ WAYNE WHEATLEY NP NURSE PRACTITIONER Signed: 11/16/2023 14:31 Receipt Acknowledged By: 11/20/2023 11:16 /jose cruz/ BHAVANI BYRD MD PHYSICIAN 11/16/2023 ADDENDUM STATUS: COMPLETED Called and spoke to . Forwarded covering PCP's message. states he had been taking LT4 previously but has been vomitting and having nausea since he needs to take it on an empty stomach. further states he did stop taking LT4 the week when lab test was done. [facility] states when has been takin git recently, he has been taking all medications and supplements at the same time. Explained to [facility] iron and calcium should be taken at least 4 hrs after taking LT4 to avoid having a negative interaction w/each other. understands information and would like to know how to avoid getting sick when taking LT4 on an empty stomach. /jose cruz/ BONNIE WILLIS RN REGISTERED NURSE Signed: 11/16/2023 16:12 Receipt Acknowledged By: 11/20/2023 11:13 /jose cruz/ BHAVANI BYRD MD PHYSICIAN 11/20/2023 ADDENDUM STATUS: COMPLETED please let vet know to check lab work mike. If sig symptoms from levothyroxine in the AM, then please let him know to take levothyroxine on an empty stomach at bedtime. /jose cruz/ BHAVANI BYRD MD PHYSICIAN Signed: 11/20/2023 11:18 Receipt Acknowledged By: 11/22/2023 12:46 /jose cruz/ OLI AUSTIN LPN LICENSED PRACTICAL NURSE 11/22/2023 12:52 /jose cruz/ BONNIE WILLIS RN REGISTERED NURSE 11/22/2023 ADDENDUM STATUS: COMPLETED The was advised to take his levothyroxine at night and he stated that he would come in on 11/23/2023. /jose cruz/ OLI AUSTIN LPN LICENSED PRACTICAL NURSE Signed: 11/22/2023 12:48 TERENCE JACOBSON [place] [facility]
--- OUTSIDE RECORDS SUMMARY | 2024-07-26 16:56 | XMS_ITS | Encounter Summary ---
Author Name [facility] [place] Address [address] [place] [address] Care Team Providers Care Conference Organizer Name Role Phone WAYNE WHEATLEY Primary Care [...] Name Patient's Relationship to Policy [facility]) MEDICARE ADVANTAGE [facility] ([facility]) Aug 25, 2001 [facility] ([facility]) [id number] DOMADRIANA SALINAS JOHN PATIENT MEDICARE ([facility]) MEDICARE (M) PART A Oct 23, 2016 PART A [id number] QUE GELLER PATIENT MEDICARE ([facility]) MEDICARE (M) PART B Oct 23, 2016 PART B [id number] QUE GELLER PATIENT MEDICARE ([facility]) MEDICARE (M) PART B Jul 25, 2011 PART B [id number] 97A QUE GELLER PATIENT MEDICARE ([facility]) MEDICARE (M) PART B Jul 25, 2011 PART B [id number] 97A QUE GELLER PATIENT MEDICARE (WNR) MEDICARE (M) PART B Jul 25, 2011 PART B [id number] QUE GELLER PATIENT MEDICARE (WNR) MEDICARE (M) PART A Apr 24, 2004 PART A [id number] 97A QUE GELLER PATIENT MEDICARE (WNR) MEDICARE (M) PART A Apr 24, 2004 PART A [id number] 97A QUE GELLER PATIENT MEDICARE (WNR) MEDICARE (M) PART A Apr 24, 2004 PART A [id number] QUE GELLER PATIENT Selected Encounter This section includes the information on record at [place] for the Encounter. Date/Time Encounter Type Encounter Description Reason Pro vider Source Aug 18, 2023 10:41 PM Outpatient Encounter ADMIN PAT ACTIVTIES (MASNONCT) IHE Encounter Template Text not used by [place] Plan of Treatment: Future Appointments (+ 6 [...] 24, 2023 03:45 PM AMBULATORY - NONE [place] [facility] [facility] Oct 05, 2023 03:00 PM [facility] Oct 20, 2023 03:30 PM [facility] Nov 18, 2023 02:15 PM [facility]ULATORY - [facility] [place] [facility] Social History: Smoking Status (Most current) [...] 26, 2021 02:25 PM VA-TOBACCO NEVER USED [facility] Advance Directives: All historical and current [...] Nov 04, 2016 [facility]ANCE [facility] Encounter Notes: All associated encounter notes This section contains the clinical notes associated to the Encounter. Date/Time Encounter Note(s) Provider Source Aug 18, 2023 10:41 PM PHARMACY NOTE: LOCAL TITLE: PHARMACY CUSTOMER CARE MEDICATION RENEWAL STANDARD TITLE: PHARMACY NOTE DATE OF NOTE: AUG 18, 2023@22:41 ENTRY DATE: AUG 18, 2023@22:41:46 AUTHOR: RANJANA JACK EXP COSIGNER: URGENCY: STATUS: COMPLETED Date: Jul Division: [place] [facility] referred by Pharmacy Call Center for medication renewal: Non-controlled/maintenan ce medication Medications requested: [id number] MULTIVIT/OPHTH AREDS2/LUTE/ZEAX CAP/TAB Defer to primary care provider To be mailed . Please review and renew if appropriate. *This note was generated by [facility]/[place] Pharmacy Customer Care. If you have any questions or need assistance, do not contact this author. Please refer all questions to your local, on-site pharmacy departments. /jose cruz/ RANJANA JACK CPhT Community Health Nurse, [place]/Pharmacy Customer Care Signed: 08/18/2023 22:42 Receipt Acknowledged By: 08/19/2023 09:13 /jose cruz/ VICENTA SHERIDAN RN REGISTERED NURSE 08/22/2023 10:56 /es/ BHAVANI BYRD MD PHYSICIAN RANJANA JACK [facility]
--- OUTSIDE RECORDS SUMMARY | 2024-07-26 16:56 | XMS_ITS | Encounter Summary ---
Author Name [facility] [place] Address [address] [place] [address] Care Team Providers Care Investigator Internal Revenue Name Role Phone WAYNE WHEATLEY Primary Care [...] Name Patient's Relationship to Policy [facility]) MEDICARE ADVANTAGE [facility] ([facility]) Aug 25, 2001 [facility] ([facility]) [id number] DUYENADRIANA JOHN PATIENT MEDICARE (WN) MEDICARE (M) PART A Oct 23, 2016 PART A [id number] QUE GELLER PATIENT MEDICARE ([facility]) MEDICARE (M) PART B Oct 23, 2016 PART B [id number] QUE GELLER PATIENT MEDICARE (WN) MEDICARE (M) PART B Jul 25, 2011 PART B [id number] QUE GELLER PATIENT MEDICARE ([facility]) MEDICARE (M) PART B Jul 25, 2011 PART B [id number] QUE GELLER PATIENT MEDICARE (WNR) MEDICARE (M) PART B Jul 25, 2011 PART B [id number] [phone] QUE GELLER PATIENT MEDICARE (WNR) MEDICARE (M) PART A Apr 24, 2004 PART A [id number] 97A QUE GELLER PATIENT MEDICARE (WNR) MEDICARE (M) PART A Apr 24, 2004 PART A [id number] [phone] QUE GELLER PATIENT MEDICARE (WNR) MEDICARE (M) PART A Apr 24, 2004 PART A [id number] QUE GELLER PATIENT Selected Encounter This section includes the information on record at [place] for the Encounter. Date/Time Encounter Type Encounter Description Reason Pro vider Source Nov 07, 2023 08:50 AM Outpatient Encounter ADMIN PAT ACTIVTIES (MASNONCT) IHE Encounter Template Text not used by [place] Plan of Treatment: Future Appointments (+ 6 months) and Future Tests (+/- 45 days) The Plan of Treatment section includes future care activities for the patient from all [place] treatmentfacilities. This section includes future appointments and future orders which are active, pending or scheduled. Future Appointments This section includes appointments that were scheduled to occur 6 months from the date of the Encounter, up to a maximum of 20 appointments. The data comes from all [place] treatment facilities. Appointment Date/Time Appointment Type Appointme nt Facility Name Nov 18, 2023 02:15 PM AMBULATORY - MEDICINE [place] [facility] Mar 22, 2024 11:00 AM AMBULATORY - MEDICINE SPRI [facility] Apr 11, 2024 01:00 PM AMBULATORY - MEDICINE [place] [facility] Apr 24, 2024 01:00 PM [facility] Apr 25, 2024 04:00 PM AMBULATORY - NONE [place] [facility] Apr 26, 2024 08:50 AM [facility] Lab Results: +/- 30 days of the encounter This section includes the Chemistry and Hematology Lab Results on record with [place] for the patient. Radiology Reports and Pathology Reports are provided separately, in subsequent sections. Lab Results This section contains the Chemistry/Hematology Results that were resulted 30 days before or 30 daysafter the date of the Encounter. Date/Time Source Result Type Result - Unit Interpretation Reference Range Comment November 23, 2023 01:22 PM [place] IRON & TIBC PANEL Specimen Type: SERUM No comment entered. Ordering Provider: BHAVANI BYRD Report Released Date/Time: Oct 05, 2023 03:45 PM Reporting Lab: [facility] [address] [address] Performing Lab: [facility] [address] TIBC 268 ug/dL 204-475 IRON 40 ug/dL 40-160 Transferrin Saturation 14.9 L 20.0-50.0 November 23, 2023 01:22 PM [place] FERRITIN Specimen Type: SERUM No comment entered. Ordering Provider: BHAVANI BYRD Report Released Date/Time: Oct 05, 2023 03:45 PM Reporting Lab: [facility] [address] [facility] [address] Performing Lab: [facility] [address] [facility] [address] FERRITIN 213 ng/mL 20-300 November 23, 2023 01:22 PM [place] VITAMIN D (25-[place]) Specimen Type: SERUM No comment entered. Ordering Provider: BHAVANI BYRD Report Released Date/Time: Oct 05, 2023 03:45 PM Reporting Lab: [facility] [address] Performing Lab: [facility] [address] [facility] [address] VITAMIN D (25-[place]) 26 ng/mL 20-50 November 23, 2023 01:22 PM [place] TSH Specimen Type: SERUM No comment entered. Ordering Provider: BHAVANI BYRD Report Released Date/Time: Oct 05, 2023 03:45 PM Reporting Lab: [facility] [address] [facility] [address] Performing Lab: [facility] [address] TSH 7.13 u[IU]/mL H 0.35-5.00 November 23, 2023 01:22 PM [place] HEMOGLOBIN A1C PANEL Specimen Type: BLOOD Comment: [...] Oct 05, 2023 03:45 PM Reporting Lab: [address] [address] Performing Lab: [address] [address] HEMOGLOBIN A1C 5.5 4.0-5.6 November 23, 2023 01:22 PM [place] BASIC METABOLIC PANEL (non-fasting) Spe cimen Type: SERUM No comment entered. Ordering Provider: BHAVANI BYRD Report Released Date/Time: Oct 05, 2023 03:45 PM Reporting Lab: [address] [address] Performing Lab: [address] [address] UREA NITROGEN 30 mg/dL H 7-25 GLUCOSE 137 mg/dL H 65-100 SODIUM 137 mmol/L 135-145 POTASSIUM 4.3 mmol/L 3.5-5.0 CHLORIDE 104 mmol/L 100-110 CO2 23 meq/L 20-30 CREATININE, Serum 1.10 mg/dL 0.50-1.40 eGFR(CKD-EPI 2020) 71 mL/min >60 November 23, 2023 01:22 PM [place] LIPID PANEL, NON FASTING Specimen Type: SERUM No comment entered. Ordering Provider: BHAVANI BYRD Report Released Date/Time: Oct 05, 2023 03:45 PM Reporting Lab: [address] [address] Performing Lab: [address] [address] CHOLESTEROL 137 mg/dL TRIGLYCERIDE 113 mg/dL 0-150 LDL calculated 72 mg/dL 0-129 CHOL/HDL 3.3 HDL CHOLESTEROL 42 mg/dL 40-60 November 23, 2023 01:22 PM [place] LIVER FUNCTION Specimen Type: SERUM No comment entered. Ordering Provider: BHAVANI BYRD Report Released Date/Time: Oct 05, 2023 03:45 PM Reporting Lab: [address] [address] Performing Lab: [address] [address] PROTEIN,TOTAL 7.2 g/dL 6.0-8.3 ALBUMIN 3.9 g/dL 3.5-5.0 ALKALINE PHOSPHATASE 78 U/L 40-150 AST 21 U/L 5-34 ALT 14 U/L BILIRUBIN, TOTAL 0.4 mg/dL 0.2-1.2 November 23, 2023 01:22 PM [place] CBC AND DIFF (AUTO) Specimen Type: BLOOD No comment entered. Ordering Provider: BHAVANI BYRD Report Released Date/Time: Oct 05, 2023 03:45 PM Reporting Lab: [address] [address] Performing Lab: [address] [address] WBC 6.91 10*3/uL 4.50-11.00 RBC 4.81 10*6/uL 4.23-5.66 HGB 11.0 g/dL L 12.8-17 HCT 34.6 L 39.2-50.4 MCV 71.9 fL L 82-99 MCHC 31.8 g/dL 30.8-35.1 PLT 310 10*3/uL 140-360 RDW-CV 14.8 12.0-16.0 Kemper, Abs 0.71 10*3/uL 0.30-1.10 MCH 22.9 pg L 26.2-32.6 Neut % 53.5 43.7-75.8 Lymph % 27.4 14.0-42.3 Kemper % 10.3 5.1-13.7 Eos % 7.2 H 0.4-6.8 Baso % 1.2 0.1-2.0 Neut, Abs 3.70 10*3/uL 2.20-7.60 Lymph, Abs 1.89 10*3/uL 1.00-3.20 Eos, Abs 0.50 10*3/uL H 0.03-0.44 Baso, Abs 0.08 10*3/uL 0.01-0.13 Immature Gran % 0.4 0.0-0.7 Immature Gran, Abs 0.03 10*3/uL 0.00-0.06 November 23, 2023 01:22 PM [place] THYROID TOTAL T3 Specimen Type: SERUM Comment: ref range 35-193 Ordering Provider: WAYNE WHEATLEY Report Released Date/Time: Nov 16, 2023 02:28 PM Reporting Lab: [address] [address] Performing Lab: [facility] [address] [facility] [address] THYROID TOTAL T3 109.30 ng/dL November 23, 2023 01:22 PM [place] THYROID T4 FREE(FT4) (WROX) Specimen Ty pe: SERUM No comment entered. Ordering Provider: WAYNE WHEATLEY Report Released Date/Time: Nov 16, 2023 02:28 PM Reporting Lab: [address] [address] Performing Lab: [facility] [address] [facility] [address] THYROID T4 FREE(FT4) (WROX) 0.90 ng/dL 0.6-1.6 November 23, 2023 01:22 PM [place] CALCIUM Specimen Type: SERUM No comment entered. Ordering Provider: WAYNE WHEATLEY Report Released Date/Time: Nov 16, 2023 02:28 PM Reporting Lab: [address] [address] Performing Lab: [address] [address] CALCIUM 9.4 mg/dL 8.5-10.2 November 23, 2023 01:22 PM [place] TSH Specimen Type: SERUM No comment entered. Ordering Provider: WAYNE WHEATLEY Report Released Date/Time: Nov 16, 2023 02:28 PM Reporting Lab: [facility] [address] [facility] [address] Performing Lab: [facility] [address] [address] TSH 7.25 u[IU]/mL H 0.35-5.00 Social History: Smoking Status (Most current) and Tobacco Use (All prior to encounter date) This section includes the most current, and the historical, smoking and tobacco- related health factors from the [place] facility where the Encounter took place. Current Smoking Status This section includes the most current smoking, or tobacco-related health factor, from the [place] facility where the Encounter took place. Date/Time Current Smoking Status Comment Facil ity Mar 26, 2021 02:25 PM VA-TOBACCO NEVER USED [facility] Advance Directives: All historical and current Section Date Range: From patient's date of to the date document was created. This section includes ALL of a patient's completed or amended [place] Advance and Rescinded Directives. The entries below indicate that a directive exists for the patient, but an actual copy is not included with this document. The data comes from all [place] facilities. Date Advance Directives Provider Source Nov 04, 2016 ADVANCE DIRECTIVE RONY URRUTIA [facility] Encounter Notes: All associated encounter notes This section contains the clinical notes associated to the Encounter. Date/Time Encounter Note(s) Provider Source Nov 07, 2023 08:52 AM PHARMACY NOTE: LOCAL TITLE: PHARMACY CUSTOMER CARE MEDICATION RENEWAL STANDARD TITLE: PHARMACY NOTE DATE OF NOTE: NOV 07, 2023@08:52 ENTRY DATE: NOV 07, 2023@08:52:42 AUTHOR: FRANSISCO CORONA COSIGNER: URGENCY: STATUS: COMPLETED Date: Oct Division: [facility] referred by Pharmacy Call Center for medication renewal: Non-controlled/maintenan ce medication Medications requested: [id number] MAGNESIUM OXIDE 420MG TAB Defer to specialty clinic To be mailed . Please review and renew if appropriate. *This note was generated by [facility]/[place] Pharmacy Customer Care. If you have any questions or need assistance, do not contact this author. Please refer all questions to your local, on-site pharmacy departments. /jose cruz/ FRANSISCO CORONA [facility] [place] Pressing Machine Operator, [place]/Pharmacy Customer Care Signed: 11/07/2023 08:54 Receipt Acknowledged By: 11/09/2023 14:14 /es/ SONIA BAIN MD PHYSICIAN FRANSISCO CORONA [facility] Nov 07, 2023 08:50 AM PHARMACY NOTE: LOCAL TITLE: PHARMACY CUSTOMER CARE MEDICATION RENEWAL STANDARD TITLE: PHARMACY NOTE DATE OF NOTE: NOV 07, 2023@08:50 ENTRY DATE: NOV 07, 2023@08:50:47 AUTHOR: FRANSISCO CORONA EXP COSIGNER: URGENCY: STATUS: COMPLETED Date: Oct Division: [facility] referred by Pharmacy Call Center for medication renewal: Non-controlled/maintenan ce medication Medications requested: [id number] CHOLECALCIF 25MCG (D3-1,000UNIT) TAB Defer to primary care provider To be mailed . Please review and renew if appropriate. *This note was generated by [facility]/[place] Pharmacy Customer Care. If you have any questions or need assistance, do not contact this author. Please refer all questions to your local, on-site pharmacy departments. /jose cruz/ FRANSISCO CORONA [facility] [place] Pressing Machine Operator, [place]/Pharmacy Customer Care Signed: 11/07/2023 08:52 Receipt Acknowledged By: 11/16/2023 11:02 /es/ WAYNE WHEATLEY NP NURSE PRACTITIONER for BHAVANI BYRD 11/07/2023 09:39 /es/ BONNIE WILLIS, JYOTI REGISTERED NURSE FRANSISCO CORONA [facility]
--- OUTSIDE RECORDS SUMMARY | 2024-07-26 16:56 | XMS_ITS | Encounter Summary ---
Author Name [place] Address [address] [place] [address] Care Team Providers Care Social Work Coordinator Name Role Phone WAYNE WHEATLEY Primary Care [...] Name Patient's Relationship to Policy [facility]) MEDICARE ADVANTAGE [facility] ([facility]) Aug 25, 2001 [facility] ([facility]) [id number] [phone] ADRIANA GELLER PATIENT MEDICARE ([facility]) MEDICARE () PART A Oct 23, 2016 PART A [id number] QUE GELLER PATIENT MEDICARE ([facility]) MEDICARE () PART B Oct 23, 2016 PART B [id number] QUE GELLER PATIENT MEDICARE ([facility]) MEDICARE () PART B Jul 25, 2011 PART B [id number] [phone] QUE GELLER PATIENT MEDICARE ([facility]) MEDICARE (M) PART B Jul 25, 2011 PART B [id number] 97A QUE GELLER PATIENT MEDICARE (WNR) MEDICARE (M) PART B Jul 25, 2011 PART B [id number] QUE GELLER PATIENT MEDICARE (WNR) MEDICARE (M) PART A Apr 24, 2004 PART A [id number] [phone] QUE GELLER PATIENT MEDICARE (WNR) MEDICARE (M) PART A Apr 24, 2004 PART A [id number] 97A QUE GELLER PATIENT MEDICARE (WNR) MEDICARE (M) PART A Apr 24, 2004 PART A [id number] QUE GELLER PATIENT Selected Encounter This section includes the information on record at CT for the Encounter. Date/Time Encounter Type Encounter Description Reason Pro vider Source Aug 15, 2023 03:11 PM Outpatient Encounter OPTOMETRY IHE Encounter Template Text not used by CT Plan of Treatment: Future Appointments (+ 6 months) and Future Tests (+/- 45 days) The Plan of Treatment section includes future care activities for the patient from all [place] treatmentfacilities. This section includes future appointments and future orders which are active, pending or scheduled. Future Appointments This section includes appointments that were scheduled to occur 6 months from the date of the Encounter, up to a maximum of 20 appointments. The data comes from all [place] treatment facilities. Appointment Date/Time Appointment Type Appointme nt Facility Name Aug 24, 2023 03:45 PM [facility] Oct 05, 2023 03:00 PM [facility] 20, 2023 03:30 PM [facility] Nov 18, 2023 02:15 PM [facility] Social History: Smoking Status (Most current) [...] 26, 2021 02:25 PM VA-TOBACCO NEVER USED [facility] Advance Directives: All historical and current [...] Nov 04, 2016 ADVANCE DIRECTIVE RONY URRUTIA [facility] Encounter Notes: All associated encounter notes This section contains the clinical notes associated to the Encounter. Date/Time Encounter Note(s) Provider Source Aug 15, 2023 03:11 PM ADMINISTRATIVE NOTE: LOCAL TITLE: ADMINISTRATIVE NOTE STANDARD TITLE: ADMINISTRATIVE NOTE DATE OF NOTE: AUG 15, 2023@15:11 ENTRY DATE: AUG 15, 2023@15:11:55 AUTHOR: HOLLY MARSHALL COSIGNER: URGENCY: STATUS: COMPLETED RTC Disposition:08/15/2023 RTC dispositioned due to veterans failure to respond to all contact efforts per department standards. /jose cruz/ HOLLY MARSHALL ADVANCED FILLER SHREDDING MACHINE LOADER Signed: 08/15/2023 15:12 HOLLY MARSHALL [facility]
--- OUTSIDE RECORDS SUMMARY | 2024-07-26 16:56 | XMS_ITS | Encounter Summary ---
Author Name [place] Address [address] [place] [id number] Care Team Providers Care Sub Master Name Role Phone WAYNE WHEATLEY Primary Care [...] Name Patient's Relationship to Policy [facility]([employer] [facility]) MEDICARE ADVANTAGE [facility] ([facility]) Aug 25, 2001 [facility] ([facility]) [id number] TIERNEYADRIANA RUSSO PATIENT MEDICARE ([facility]) MEDICARE (M) PART A Oct 23, 2016 PART A [id number] QUE GELLER PATIENT MEDICARE ([facility]) MEDICARE (M) PART B Oct 23, 2016 PART B [id number] QUE GELLER PATIENT MEDICARE (WN) MEDICARE (M) PART B Jul 25, 2011 PART B [id number] [phone] QUE GELLER PATIENT MEDICARE ([facility]) MEDICARE (M) PART B Jul 25, 2011 PART B [id number] QUE GELLER PATIENT MEDICARE (WNR) MEDICARE (M) PART B Jul 25, 2011 PART B [id number] [phone] QUE GELLER PATIENT MEDICARE (WNR) MEDICARE (M) PART A Apr 24, 2004 PART A [id number] [phone] QUE GELLER PATIENT MEDICARE (WNR) MEDICARE (M) PART A Apr 24, 2004 PART A [id number] QUE GELLER PATIENT MEDICARE (WNR) MEDICARE (M) PART A Apr 24, 2004 PART A [id number] QUE GELLER PATIENT Selected Encounter This section includes the information on record at [place] for the Encounter. Date/Time Encounter Type Encounter Description Reason Pro vider Source Nov 11, 2023 12:00 PM Outpatient Encounter EVENT (HISTORICAL) IHE Encounter Template Text not used by [...] 18, 2023 02:15 PM [facility] Mar 22, 2024 11:00 AM [facility]ICINE [facility] Apr 11, 2024 01:00 PM [place]ORY [place] [facility] Apr 24, 2024 01:00 PM AMBULATORY - MEDICINE [facility] Apr 25, 2024 04:00 PM [facility] Apr 26, 2024 08:50 AM [facility]BUL[facility] - [facility] Lab Results: +/- 30 days of the encounter This section includes the Chemistry and Hematology Lab Results on record with [place] for the patient. Radiology Reports and Pathology Reports are provided separately, in subsequent sections. Lab Results This section contains the Chemistry/Hematology Results that were resulted 30 days before or 30 daysafter the date of the Encounter. Date/Time Source Result Type Result - Unit Interpretation Reference Range Comment November 23, 2023 01:22 PM [facility] FERRITIN Specimen Type: SERUM No comment entered. Ordering Provider: BHAVANI BYRD Report Released Date/Time: Oct 05, 2023 03:45 PM Reporting Lab[facility] [address] Performing Lab: [facility] [address] FERRITIN 213 ng/mL 20-300 November 23, 2023 01:22 PM [facility] VITAMIN D (25-OH) Specimen Type: SERUM No comment entered. Ordering Provider: BHAVANI BYRD Report Released Date/Time: Oct 05, 2023 03:45 PM Reporting Lab: [facility] [address] [address] Performing Lab: [facility] [address] VITAMIN D (25-OH) 26 ng/mL 20-50 November 23, 2023 01:22 PM [facility] IRON & TIBC PANEL Specimen Type: SERUM No comment entered. Ordering Provider: BHAVANI BYRD Report Released Date/Time: Oct 05, 2023 03:45 PM Reporting Lab: [facility] [address] [address] Performing Lab: [facility] [address] TIBC 268 ug/dL 204-475 IRON 40 ug/dL 40-160 Transferrin Saturation 14.9 L 20.0-50.0 November 23, 2023 01:22 PM [facility] TSH Specimen Type: SERUM No comment entered. Ordering Provider: BHAVANI BYRD Report Released Date/Time: Oct 05, 2023 03:45 PM Reporting Lab: [facility] [address] Performing Lab: [facility] [address] TSH 7.13 u[IU]/mL H 0.35-5.00 November 23, 2023 01:22 PM [facility] HEMOGLOBIN A1C PANEL Specimen Type: BLOOD Comment: [...] Oct 05, 2023 03:45 PM Reporting Lab: [address] [address] Performing Lab: [address] [address] HEMOGLOBIN A1C 5.5 4.0-5.6 November 23, 2023 01:22 PM [facility] BASIC METABOLIC PANEL (non-fasting) Spe cimen Type: SERUM No comment entered. Ordering Provider: BHAVANI BYRD Report Released Date/Time: Oct 05, 2023 03:45 PM Reporting Lab: [address] [address] Performing Lab: [address] [address] UREA NITROGEN 30 mg/dL H 7-25 GLUCOSE 137 mg/dL H 65-100 SODIUM 137 mmol/L 135-145 POTASSIUM 4.3 mmol/L 3.5-5.0 CHLORIDE 104 mmol/L 100-110 CO2 23 meq/L 20-30 CREATININE, Serum 1.10 mg/dL 0.50-1.40 eGFR(CKD-EPI 2020) 71 mL/min >60 November 23, 2023 01:22 PM [facility] LIVER FUNCTION Specimen Type: SERUM No comment entered. Ordering Provider: BHAVANI BYRD Report Released Date/Time: Oct 05, 2023 03:45 PM Reporting Lab: [address] [address] Performing Lab: [address] [address] PROTEIN,TOTAL 7.2 g/dL 6.0-8.3 ALBUMIN 3.9 g/dL 3.5-5.0 ALKALINE PHOSPHATASE 78 U/L 40-150 AST 21 U/L 5-34 ALT 14 U/L BILIRUBIN, TOTAL 0.4 mg/dL 0.2-1.2 November 23, 2023 01:22 PM [facility] LIPID PANEL, NON FASTING Specimen Type: SERUM No comment entered. Ordering Provider: BHAVANI BYRD Report Released Date/Time: Oct 05, 2023 03:45 PM Reporting Lab: [address] [address] Performing Lab: [address] [address] CHOLESTEROL 137 mg/dL TRIGLYCERIDE 113 mg/dL 0-150 LDL calculated 72 mg/dL 0-129 CHOL/HDL 3.3 HDL CHOLESTEROL 42 mg/dL 40-60 November 23, 2023 01:22 PM [facility] CBC AND DIFF (AUTO) Specimen Type: BLOOD No comment entered. Ordering Provider: BHAVANI BYRD Report Released Date/Time: Oct 05, 2023 03:45 PM Reporting Lab: [address] [address] Performing Lab: [address] [address] WBC 6.91 10*3/uL 4.50-11.00 RBC 4.81 10*6/uL 4.23-5.66 HGB 11.0 g/dL L 12.8-17 HCT 34.6 L 39.2-50.4 MCV 71.9 fL L 82-99 MCHC 31.8 g/dL 30.8-35.1 PLT 310 10*3/uL 140-360 RDW-CV 14.8 12.0-16.0 Denali, Abs 0.71 10*3/uL 0.30-1.10 MCH 22.9 pg L 26.2-32.6 Neut % 53.5 43.7-75.8 Lymph % 27.4 14.0-42.3 Denali % 10.3 5.1-13.7 Eos % 7.2 H 0.4-6.8 Baso % 1.2 0.1-2.0 Neut, Abs 3.70 10*3/uL 2.20-7.60 Lymph, Abs 1.89 10*3/uL 1.00-3.20 Eos, Abs 0.50 10*3/uL H 0.03-0.44 Baso, Abs 0.08 10*3/uL 0.01-0.13 Immature Gran % 0.4 0.0-0.7 Immature Gran, Abs 0.03 10*3/uL 0.00-0.06 November 23, 2023 01:22 PM [facility] THYROID TOTAL T3 Specimen Type: SERUM Comment: ref range 35-193 Ordering Provider: WAYNE WHEATLEY Report Released Date/Time: Nov 16, 2023 02:28 PM Reporting Lab: [address] [address] Performing Lab: [facility] [address] [facility] [address] THYROID TOTAL T3 109.30 ng/dL November 23, 2023 01:22 PM [facility] THYROID T4 FREE(FT4) (WROX) Specimen Ty pe: SERUM No comment entered. Ordering Provider: WAYNE WHEATLEY Report Released Date/Time: Nov 16, 2023 02:28 PM Reporting Lab: [address] [address] Performing Lab: [facility] [address] [facility] [address] THYROID T4 FREE(FT4) (WROX) 0.90 ng/dL 0.6-1.6 November 23, 2023 01:22 PM [facility] CALCIUM Specimen Type: SERUM No comment entered. Ordering Provider: WAYNE WHEATLEY Report Released Date/Time: Nov 16, 2023 02:28 PM Reporting Lab: [address] [address] Performing Lab: [address] [address] CALCIUM 9.4 mg/dL 8.5-10.2 November 23, 2023 01:22 PM [facility] TSH Specimen Type: SERUM No comment entered. Ordering Provider: WAYNE WHEATLEY Report Released Date/Time: Nov 16, 2023 02:28 PM Reporting Lab: [facility] [address] [facility] [address] Performing Lab: [facility] [address] [facility] [address] TSH 7.25 u[IU]/mL H 0.35-5.00 Social History: Smoking Status (Most current) and Tobacco Use (All prior to encounter date) This section includes the most current, and the historical, smoking and tobacco- related health factors from the [place] facility where the Encounter took place. Current Smoking Status This section includes the most current smoking, or tobacco-related health factor, from the [place] facility where the Encounter took place. Date/Time [...] Nov 04, 2016 ADVANCE DIRECTIVE RONY URRUTIA [facility] Encounter Notes: All associated encounter notes This section contains the clinical notes associated to the Encounter. Date/Time Encounter Note(s) Provider Source Nov 11, 2023 12:00 PM NONVA NOTE: LOCAL TITLE: NON-VA OUTPATIENT NOTES STANDARD TITLE: NONVA NOTE DATE OF NOTE: NOV 11, 2023@12:00 ENTRY DATE: NOV 21, 2023@12:54:10 AUTHOR: JANINA SIERRA EXP COSIGNER: URGENCY: STATUS: COMPLETED VistA Imaging - Scanned Document SCANNED DOCUMENT SIGNATURE NOT REQUIRED Electronically Filed: 11/21/2023 by: JANINA SARMIENTO [facility]
--- OUTSIDE RECORDS SUMMARY | 2024-07-26 16:56 | XMS_ITS | Encounter Summary ---
Author Name [place] Address [address] [place] [address] Care Team Providers Care Merchant Miller Name Role Phone WAYNE WHEATLEY Primary Care [...] Name Patient's Relationship to Policy [facility] MEDICARE ADVANTAGE [facility]) Aug 25, 2001 [facility]) [id number] DOMADRIANA SALINAS JOHN PATIENT MEDICARE ([facility]) MEDICARE (M) PART A Oct 23, 2016 PART A [id number] QUE GELLER PATIENT MEDICARE ([facility]) MEDICARE (M) PART B Oct 23, 2016 PART B [id number] QUE GELLER PATIENT MEDICARE ([facility]) MEDICARE (M) PART B Jul 25, 2011 PART B [id number] 97A QUE GELLER PATIENT MEDICARE ([facility]) MEDICARE (M) PART B Jul 25, 2011 PART B [id number] 97A QUE GELLER PATIENT MEDICARE (WNR) MEDICARE (M) PART B Jul 25, 2011 PART B [id number] QUE GELLER PATIENT MEDICARE (WNR) MEDICARE (M) PART A Apr 24, 2004 PART A [id number] 97A QUE GELLER PATIENT MEDICARE (WNR) MEDICARE (M) PART A Apr 24, 2004 PART A [id number] 97A QUE GELLER PATIENT MEDICARE (WNR) MEDICARE (M) PART A Apr 24, 2004 PART A [id number] QUE GELLER PATIENT Selected Encounter This section includes the information on record at [place] for the Encounter. Date/Time Encounter Type Encounter Description Reason Pro vider Source Jul 27, 2023 01:05 PM Outpatient Encounter ADMIN PAT ACTIVTIES (MASNONCT) IHE Encounter Template Text not used by [place] Plan of Treatment: Future Appointments (+ 6 months) and Future Tests (+/- 45 days) The Plan of Treatment section includes future care activities for the patient from all [place] treatmentfacilities. This section includes future appointments and future orders which are active, pending or scheduled. Future Appointments This section includes appointments that were scheduled to occur 6 months from the date of the Encounter, up to a maximum of 20 appointments. The data comes from all [place] treatment facilities. Appointment Date/Time Appointment Type Appointme nt Facility Name Aug 24, 2023 03:45 PM AMBULATORY - NONE [place] [facility] [place] [facility] Oct 05, 2023 03:00 PM AMBULATORY - MEDICINE [facility] [place] Oct 20, 2023 03:30 PM AMBULATORY - NEUROLOGY [place] [facility] [facility] Nov 18, 2023 02:15 PM [facility] [place] [facility] Social History: Smoking Status (Most current) [...] place. Date/Time Current Smoking Status Comment Facil [facility] Mar 26, 2021 02:25 PM VA-TOBACCO NEVER USED [place] [facility] Advance Directives: All historical and current Section Date Range: From patient's date of to the date document was created. This section includes ALL of a patient's completed or amended [place] Advance and Rescinded Directives. The entries below indicate that a directive exists for the patient, but an actual copy is not included with this document. The data comes from all [place] facilities. Date Advance Directives Provider Source Nov 04, 2016 ADVANCE DIRECTIVE RONY URRUTIA [place] [facility] Encounter Notes: All associated encounter notes This section contains the clinical notes associated to the Encounter. Date/Time Encounter Note(s) Provider Source Jul 27, 2023 01:20 PM ADDENDUM: LOCAL TITLE: Addendum STANDARD TITLE: ADDENDUM DATE OF NOTE: JUL 27, 2023@13:20:17 ENTRY DATE: JUL 27, 2023@13:20:18 AUTHOR: LAMINE MEZA COSIGNER: URGENCY: STATUS: COMPLETED to PCP /jose cruz/ KELTON EMZA RN,MSN,TUMBLE TAILSTOCK TURRET LATHE OPERATOR-C [facility] NURSE PRACTITIONER Signed: 07/27/2023 13:20 Receipt Acknowledged By: 10/03/2023 09:15 /jose cruz/ BHAVANI BYRD MD PHYSICIAN ====== --- Original Document --- 07/27/23 V1 PHARMACY CUSTOMER CARE MEDICATION RENEWAL: Date: Jul Division: [place] Pt referred by Pharmacy Call Center for medication renewal: Non-controlled/maintenan ce medication Medications requested: [id number] LEVOTHYROXINE NA (SYNTHROID) 125MCG TAB [id number] SIMVASTATIN 20MG TAB Defer to primary care provider To be mailed . Please review and renew if appropriate. *This note was generated by [facility]/[place] Pharmacy Customer Care. If you have any questions or need assistance, do not contact this author. Please refer all questions to your local, on-site pharmacy departments. /sahntel PHAM CPhT [employer] [employer], [place]/Pharmacy Customer Care Signed: 07/27/2023 13:09 Receipt Acknowledged By: 07/27/2023 13:20 /shantel MEZA RN,MSN,TUMBLE TAILSTOCK TURRET LATHE OPERATOR-C [facility] NURSE PRACTITIONER 07/27/2023 13:28 /jose cruz/ VICENTA SHERIADN RN REGISTERED NURSE LAMINE MEZA [facility] Jul 27, 2023 01:05 PM PHARMACY NOTE: LOCAL TITLE: V1 PHARMACY CUSTOMER CARE MEDICATION RENEWAL STANDARD TITLE: PHARMACY NOTE DATE OF NOTE: JUL 27, 2023@13:05 ENTRY DATE: JUL 27, 2023@13:05:45 AUTHOR: JOSE PHAM EXP COSIGNER: URGENCY: STATUS: COMPLETED V1 PHARMACY CUSTOMER CARE MEDICATION RENEWAL Has ADDENDA Date: Jul Division: [place] Pt referred by Pharmacy Call Center for medication renewal: Non-controlled/maintenan ce medication Medications requested: [id number] LEVOTHYROXINE NA (SYNTHROID) 125MCG TAB [id number] SIMVASTATIN 20MG TAB Defer to primary care provider To be mailed . Please review and renew if appropriate. *This note was generated by [facility]/[place] Pharmacy Customer Care. If you have any questions or need assistance, do not contact this author. Please refer all questions to your local, on-site pharmacy departments. /shantel PHAM CPhT [employer] [employer], [place]/Pharmacy Customer Care Signed: 07/27/2023 13:09 Receipt Acknowledged By: 07/27/2023 13:20 /jose cruz/ KELTON MEZA RN,MSN,TUMBLE TAILSTOCK TURRET LATHE OPERATOR-C [facility] NURSE PRACTITIONER 07/27/2023 13:28 /jose cruz/ VICENTA SHERIDAN RN REGISTERED NURSE 07/27/2023 ADDENDUM STATUS: COMPLETED to PCP /jose cruz/ KELTON MEZA RN,MSN,TUMBLE TAILSTOCK TURRET LATHE OPERATOR-C [facility] NURSE PRACTITIONER Signed: 07/27/2023 13:20 Receipt Acknowledged By: * AWAITING SIGNATURE * BHAVANI BYRD LILLA ZAKIYA [place] [facility]
--- OUTSIDE RECORDS SUMMARY | 2024-07-26 16:56 | XMS_ITS | Encounter Summary ---
Author Name [place] Address [address] [place] [address] Care Team Providers Care Cash Accountant Name Role Phone WAYNE WHEATLEY Primary Care [...] Name Patient's Relationship to Policy [facility]) MEDICARE ADVANTAGE [facility] ([facility]) Aug 25, 2001 [facility] ([facility]) [id number] DOMADRIANA SALINAS JOHN PATIENT MEDICARE ([facility]) MEDICARE (M) PART A Oct 23, 2016 PART A [id number] QUE GELLER PATIENT MEDICARE ([facility]) MEDICARE (M) PART B Oct 23, 2016 PART B [id number] QUE GELLER PATIENT MEDICARE ([facility]) MEDICARE (M) PART B Jul 25, 2011 PART B [id number] 97A QUE GELLER PATIENT MEDICARE ([facility]) MEDICARE (M) PART B Jul 25, 2011 PART B [id number] 97A QUE GELLER PATIENT MEDICARE (WNR) MEDICARE (M) PART B Jul 25, 2011 PART B [id number] QUE GELLER PATIENT MEDICARE (WNR) MEDICARE (M) PART A Apr 24, 2004 PART A [id number] [phone] QUE GELLER PATIENT MEDICARE (WNR) MEDICARE (M) PART A Apr 24, 2004 PART A [id number] 97A QUE GELLER PATIENT MEDICARE (WNR) MEDICARE (M) PART A Apr 24, 2004 PART A [id number] QUE GELLER PATIENT Selected Encounter This section includes the information on record at [place] for the Encounter. Date/Time Encounter Type Encounter Description Reason Pro vider Source Jul 26, 2023 09:54 PM Outpatient Encounter ADMIN PAT ACTIVTIES (MASNONCT) IHE Encounter Template Text not used by [place] Plan of Treatment: Future Appointments (+ 6 months) and Future Tests (+/- 45 days) The Plan of Treatment section includes future care activities for the patient from all [place] treatmentfacilities. This section includes future appointments and future orders which are active, pending or scheduled. Future Appointments This section includes appointments that were scheduled to occur 6 months from the date of the Encounter, up to a maximum of 20 appointments. The data comes from all [place] treatment facilities. Appointment Date/Time Appointment Type Appointme nt Facility Name Aug 24, 2023 03:45 PM AMBULATORY - NONE [place] [facility] [facility] Oct 05, 2023 03:00 PM AMBULATORY - MEDICINE [place] Oct 20, 2023 03:30 PM [facility] [place] [facility] Nov 18, 2023 02:15 PM [facility] [place] [facility] Social History: Smoking Status (Most current) [...] 26, 2021 02:25 PM VA-TOBACCO NEVER USED [place] [facility] Advance Directives: All historical and current Section Date Range: From patient's date of to the date document was created. This section includes ALL of a patient's completed or amended [place] Advance and Rescinded Directives. The entries below indicate that a directive exists for the patient, but an actual copy is not included with this document. The data comes from all [place] facilities. Date Advance Directives Provider Source Nov 04, 2016 ADVANCE DIRECTIVE RONY URRUTIA [place] [facility] Encounter Notes: All associated encounter notes This section contains the clinical notes associated to the Encounter. Date/Time Encounter Note(s) Provider Source Jul 26, 2023 09:54 PM ADMINISTRATIVE NOT E: LOCAL TITLE: CCC: SCHEDULING ADMINISTRATION STANDARD TITLE: ADMINISTRATIVE NOTE DATE OF NOTE: JUL 26, 2023@21:54 ENTRY DATE: JUL 26, 2023@21:54:34 AUTHOR: AFSANEH PARSON EXP COSIGNER: URGENCY: STATUS: COMPLETED Verify Patient Demographics Successfully verified patient demographics Transfer Patient to Other Services Action(s) Completed: Transferred patient to [facility] /jose cruz/ AFSANEH PARSON [facility] AMSA Signed: 07/26/2023 21:[address] [facility] [address]
--- OUTSIDE RECORDS SUMMARY | 2024-07-26 16:56 | XMS_ITS | Encounter Summary ---
Author Name [place] Address [address] [place] [address] Care Team Providers Care Microbiological Analyst Name Role Phone WAYNE WHEATLEY Primary Care [...] Name Patient's Relationship to Policy [facility]) MEDICARE ADVANTAGE [facility] ([facility]) Aug 25, 2001 [facility] ([facility]) [id number] ADRIANA GELLER PATIENT MEDICARE ([facility]) MEDICARE () PART A Oct 23, 2016 PART A [id number] QUE GELLER PATIENT MEDICARE ([facility]) MEDICARE () PART B Oct 23, 2016 PART B [id number] [phone] QUE GELLER PATIENT MEDICARE ([facility]) MEDICARE () PART B Jul 25, 2011 PART B [id number] 97A QUE GELLER PATIENT MEDICARE ([facility]) MEDICARE () PART B Jul 25, 2011 PART B [id number] 97A QUE GELLER PATIENT MEDICARE ([place]NR) MEDICARE (M) PART B Jul 25, 2011 PART B [id number] [phone] QUE GELLER PATIENT MEDICARE (WNR) MEDICARE (M) PART A Apr 24, 2004 PART A [id number] 97A QUE GELLER PATIENT MEDICARE (WNR) MEDICARE (M) PART A Apr 24, 2004 PART A [id number] 97A QUE GELLER PATIENT MEDICARE ([place]) MEDICARE (M) PART A Apr 24, 2004 PART A [id number] QUE GELLER PATIENT Selected Encounter This section includes the information on record at [place] for the Encounter. Date/Time Encounter Type Encounter Description Reason Pro vider Source Aug 10, 2023 09:33 AM Outpatient Encounter DENTAL IHE Encounter Template Text not used by [place] Plan of Treatment: Future Appointments (+ 6 months) and Future Tests (+/- 45 days) The Plan of Treatment section includes future care activities for the patient from all [place] treatmentfacilities. This section includes future appointments and future orders which are active, pending or scheduled. Future Appointments This section includes appointments that were scheduled to occur 6 months from the date of the Encounter, up to a maximum of 20 appointments. The data comes from all [place] treatment facilities. Appointment Date/Time Appointment Type Appointme nt Facility Name Aug 24, 2023 03:45 PM [facility] Oct 05, 2023 03:00 PM [facility] Oct 20, 2023 03:30 PM AMBULATORY - NEUROLOGY [place] [facility] Nov 18, 2023 02:15 PM [facility] [place] [facility] Social History: Smoking Status (Most current) [...] 26, 2021 02:25 PM VA-TOBACCO NEVER USED [facility] Advance Directives: All historical and current Section Date Range: From patient's date of to the date document was created. This section includes ALL of a patient's completed or amended [place] Advance and Rescinded Directives. The entries below indicate that a directive exists for the patient, but an actual copy is not included with this document. The data comes from all [place] facilities. Date Advance Directives Provider Source Nov 04, 2016 [facility] Encounter Notes: All associated encounter notes This section contains the clinical notes associated to the Encounter. Date/Time Encounter Note(s) Provider Source Aug 10, 2023 09:33 AM TELEHEALTH NOTE: LOCAL TITLE: TELEPHONE NOTE/DENTAL STANDARD TITLE: TELEHEALTH NOTE DATE OF NOTE: AUG 10, 2023@09:33 ENTRY DATE: AUG 10, 2023@09:33:28 AUTHOR: POP JOSEPH EXP COSIGNER: URGENCY: STATUS: COMPLETED Called pt and LM to confirm dental appointment on 08/11/2023 at 3:45 pm. /jose cruz/ POP JOSEPH ADVANCED STRUCTURAL FITTER Signed: 08/10/2023 09:34 POP JOSEPH [facility]
--- OUTSIDE RECORDS SUMMARY | 2024-07-26 16:56 | XMS_ITS | Encounter Summary ---
Author Name [facility] [place] Organization [place] Address [address] [place] [id number] Care Team Providers Care Supervisor Winter Name Role Phone WAYNE WHEATLEY Primary Care [...] Patient's Relationship to Policy [facility]) MEDICARE ADVANTAGE [facility] ([facility]) Aug 25, 2001 [facility] ([facility]) [id number] [id number] TIERNEYADRIANA RUSSO PATIENT MEDICARE ([facility]) MEDICARE (M) PART A Oct 23, 2016 PART A [id number] QUE GELLER PATIENT MEDICARE ([facility]) MEDICARE (M) PART B Oct 23, 2016 PART B [id number] QUE GELLER PATIENT MEDICARE ([facility]) MEDICARE (M) PART B Jul 25, 2011 PART B [id number] [phone] QUE GELLER PATIENT MEDICARE ([facility]) MEDICARE (M) PART B Jul 25, 2011 PART B [id number] 97A QUE GELLER PATIENT MEDICARE (WNR) MEDICARE (M) PART B Jul 25, 2011 PART B [id number] QUE GELLER PATIENT MEDICARE (WNR) MEDICARE (M) PART A Apr 24, 2004 PART A [id number] 97A QUE GELLER PATIENT MEDICARE (WNR) MEDICARE (M) PART A Apr 24, 2004 PART A [id number] QUE GELLER PATIENT MEDICARE (WNR) MEDICARE (M) PART A Apr 24, 2004 PART A [id number] QUE GELLER PATIENT Selected Encounter This section includes the information on record at [place] for the Encounter. Date/Time Encounter Type Encounter Description Reason Pro vider Source Nov 16, 2023 02:34 PM Outpatient Encounter PRIMARY CARE/MEDICINE IHE Encounter Template Text not used by [place] Plan of Treatment: Future Appointments (+ 6 [...] PM AMBULATORY - [place]ICINE [place] [facility] Mar 22, 2024 11:00 AM AMBULATORY - MEDICINE [facility] Apr 11, 2024 01:00 PM AMBULATORY - [place]ICINE [place] [facility] Apr 24, 2024 01:00 PM AMBULATORY - MEDICINE [facility] Apr 25, 2024 04:00 PM AMBULATORY - NONE [place] [facility] Apr 26, 2024 08:50 AM AMBULATORY - [place]ICINE [place] [facility] May 14, 2024 03:00 PM AMBULATORY - MEDICINE [place] [facility] May 14, 2024 03:30 PM AMBULATORY - MEDICINE [facility] Lab Results: +/- 30 days of the encounter This section includes the Chemistry and Hematology Lab Results on record with [place] for the patient. Radiology Reports and Pathology Reports are provided separately, in subsequent sections. Lab Results This section contains the Chemistry/Hematology Results that were resulted 30 days before or 30 daysafter the date of the Encounter. Date/Time Source Result Type Result - Unit Interpretation Reference Range Comment November 23, 2023 01:22 PM [facility] IRON & TIBC PANEL Specimen Type: SERUM No comment entered. Ordering Provider: BHAVANI BYRD Report Released Date/Time: Oct 05, 2023 03:45 PM Reporting Lab: [address] [address] Performing Lab: [address] [address] TIBC 268 ug/dL 204-475 IRON 40 ug/dL 40-160 Transferrin Saturation 14.9 L 20.0-50.0 November 23, 2023 01:22 PM [facility] FERRITIN Specimen Type: SERUM No comment entered. Ordering Provider: BHAVANI BYRD Report Released Date/Time: Oct 05, 2023 03:45 PM Reporting Lab: [address] [address] Performing Lab: [address] [address] FERRITIN 213 ng/mL 20-300 November 23, 2023 01:22 PM [facility] VITAMIN D (25-OH) Specimen Type: SERUM No comment entered. Ordering Provider: BHAVANI BYRD Report Released Date/Time: Oct 05, 2023 03:45 PM Reporting Lab: [address] [address] Performing Lab: [address] [address] VITAMIN D (25-OH) 26 ng/mL 20-50 November 23, 2023 01:22 PM [facility] TSH Specimen Type: SERUM No comment entered. Ordering Provider: BHAVANI BYRD Report Released Date/Time: Oct 05, 2023 03:45 PM Reporting Lab: [place] [address] [address] Performing Lab: [address] [address] TSH 7.13 u[IU]/mL H 0.35-5.00 November 23, 2023 01:22 PM [facility] HEMOGLOBIN A1C PANEL Specimen Type: BLOOD Comment: [...] Oct 05, 2023 03:45 PM Reporting Lab: [address] [address] Performing Lab: [address] [address] HEMOGLOBIN A1C 5.5 4.0-5.6 November 23, 2023 01:22 PM [facility] LIVER FUNCTION Specimen Type: SERUM No comment entered. Ordering Provider: BHAVANI BYRD Report Released Date/Time: Oct 05, 2023 03:45 PM Reporting Lab: [address] [address] Performing Lab: [address] [address] PROTEIN,TOTAL 7.2 g/dL 6.0-8.3 ALBUMIN 3.9 g/dL 3.5-5.0 ALKALINE PHOSPHATASE 78 U/L 40-150 AST 21 U/L 5-34 ALT 14 U/L BILIRUBIN, TOTAL 0.4 mg/dL 0.2-1.2 November 23, 2023 01:22 PM [facility] LIPID PANEL, NON FASTING Specimen Type: SERUM No comment entered. Ordering Provider: BHAVANI BYRD Report Released Date/Time: Oct 05, 2023 03:45 PM Reporting Lab: [address] [address] Performing Lab: [address] [address] CHOLESTEROL 137 mg/dL TRIGLYCERIDE 113 mg/dL 0-150 LDL calculated 72 mg/dL 0-129 CHOL/HDL 3.3 HDL CHOLESTEROL 42 mg/dL 40-60 November 23, 2023 01:22 PM [facility] BASIC METABOLIC PANEL (non-fasting) Spe cimen Type: SERUM No comment entered. Ordering Provider: BHAVANI BYRD Report Released Date/Time: Oct 05, 2023 03:45 PM Reporting Lab: [address] [address] Performing Lab: [address] [address] UREA NITROGEN 30 mg/dL H 7-25 GLUCOSE 137 mg/dL H 65-100 SODIUM 137 mmol/L 135-145 POTASSIUM 4.3 mmol/L 3.5-5.0 CHLORIDE 104 mmol/L 100-110 CO2 23 meq/L 20-30 CREATININE, Serum 1.10 mg/dL 0.50-1.40 eGFR(CKD-EPI 2020) 71 mL/min >60 November 23, 2023 01:22 PM [facility] CBC AND DIFF (AUTO) Specimen Type: BLOOD No comment entered. Ordering Provider: BHAVANI BYRD Report Released Date/Time: Oct 05, 2023 03:45 PM Reporting Lab: [address] [address] Performing Lab: [address] [address] WBC 6.91 10*3/uL 4.50-11.00 RBC 4.81 10*6/uL 4.23-5.66 HGB 11.0 g/dL L 12.8-17 HCT 34.6 L 39.2-50.4 MCV 71.9 fL L 82-99 MCHC 31.8 g/dL 30.8-35.1 PLT 310 10*3/uL 140-360 RDW-CV 14.8 12.0-16.0 Wilkinson, Abs 0.71 10*3/uL 0.30-1.10 MCH 22.9 pg L 26.2-32.6 Neut % 53.5 43.7-75.8 Lymph % 27.4 14.0-42.3 Wilkinson % 10.3 5.1-13.7 Eos % 7.2 H 0.4-6.8 Baso % 1.2 0.1-2.0 Neut, Abs 3.70 10*3/uL 2.20-7.60 Lymph, Abs 1.89 10*3/uL 1.00-3.20 Eos, Abs 0.50 10*3/uL H 0.03-0.44 Baso, Abs 0.08 10*3/uL 0.01-0.13 Immature Gran % 0.4 0.0-0.7 Immature Gran, Abs 0.03 10*3/uL 0.00-0.06 November 23, 2023 01:22 PM [facility] THYROID TOTAL T3 Specimen Type: SERUM Comment: ref range [phone] Ordering Provider: WAYNE WHEATLEY Report Released Date/Time: Nov 16, 2023 02:28 PM Reporting Lab: [address] [address] Performing Lab: [facility] [address] [facility] [address] THYROID TOTAL T3 109.30 ng/dL November 23, 2023 01:22 PM [facility] THYROID T4 FREE(FT4) (WROX) Specimen Ty pe: SERUM No comment entered. Ordering Provider: WAYNE WHEATLEY Report Released Date/Time: Nov 16, 2023 02:28 PM Reporting Lab: [facility] [address] [facility] [address] Performing Lab: [facility] [address] [facility] [address] THYROID T4 FREE(FT4) (WROX) 0.90 ng/dL 0.6-1.6 November 23, 2023 01:22 PM [facility] CALCIUM Specimen Type: SERUM No comment entered. Ordering Provider: WAYNE WHEATLEY Report Released Date/Time: Nov 16, 2023 02:28 PM Reporting Lab: [facility] [address] [facility] [address] Performing Lab: [address] [address] CALCIUM 9.4 mg/dL 8.5-10.2 November 23, 2023 01:22 PM [facility] TSH Specimen Type: SERUM No comment entered. Ordering Provider: WAYNE WHEATLEY Report Released Date/Time: Nov 16, 2023 02:28 PM Reporting Lab: [facility] [address] [facility] [address] Performing Lab: [facility] [address] [facility] [address] TSH 7.25 u[IU]/mL H 0.35-5.00 Social History: [...] 26, 2021 02:25 PM VA-TOBACCO NEVER USED [facility] Advance Directives: All historical and current [...] Provider Source Nov 04, 2016 ADVANCE DIRECTIVE [facility] Encounter Notes: All associated encounter notes This section contains the clinical notes associated to the Encounter. Date/Time Encounter Note(s) Provider Source Nov 16, 2023 02:34 PM NURSING NONVA NOTE : LOCAL TITLE: OUTSIDE LAB RESULTS STANDARD TITLE: NURSING NONVA NOTE DATE OF NOTE: NOV 16, 2023@14:34 ENTRY DATE: NOV 16, 2023@14:34:41 AUTHOR: BONNIE WILLIS EXP COSIGNER: URGENCY: STATUS: COMPLETED Outside Lab Values Date of Lab draw: Oct Location of lab tests: [facility] Outside Lab Values: OTHER LAB VALUES: TSH 11.90 /es/ BONNIE WILLIS, RN REGISTERED NURSE Signed: 11/16/2023 14:36 BONNIE WILLIS
--- OUTSIDE RECORDS SUMMARY | 2024-07-26 16:56 | XMS_ITS | Encounter Summary ---
Author Name [facility] [place] Address [address] [place] [address] Care Team Providers Care Pc Maintenance Technician Name Role Phone WAYNE WHEATLEY Primary Care [...] Name Patient's Relationship to Policy [facility]) MEDICARE ADVANTAGE [facility] ([facility]) Aug 25, 2001 [facility] ([facility]) [id number] DOMADRIANA SALINAS JOHN PATIENT MEDICARE ([facility]) MEDICARE (M) PART A Oct 23, 2016 PART A [id number] QUE GELLER PATIENT MEDICARE ([facility]) MEDICARE (M) PART B Oct 23, 2016 PART B [id number] QUE GELLER PATIENT MEDICARE ([facility]) MEDICARE (M) PART B Jul 25, 2011 PART B [id number] [phone] QUE GELLER PATIENT MEDICARE ([facility]) MEDICARE (M) PART B Jul 25, 2011 PART B [id number] 97A QUE GELLER PATIENT MEDICARE ([facility]NR) MEDICARE (M) PART B Jul 25, 2011 PART B [id number] QUE GELLER PATIENT MEDICARE (WNR) MEDICARE (M) PART A Apr 24, 2004 PART A [id number] 97A QUE GELLER PATIENT MEDICARE (WNR) MEDICARE (M) PART A Apr 24, 2004 PART A [id number] 97A QUE GELLER PATIENT MEDICARE (WNR) MEDICARE (M) PART A Apr 24, 2004 PART A [id number] QUE GELLER PATIENT Selected Encounter This section includes the information on record at [place] for the Encounter. Date/Time Encounter Type Encounter Description Reason Pro vider Source Dec 26, 2023 08:50 PM Outpatient Encounter ADMIN PAT ACTIVTIES ([facility]) IHE Encounter Template Text not used by [place] Plan of Treatment: Future Appointments (+ 6 months) and Future Tests (+/- 45 days) The Plan of Treatment section includes future care activities for the patient from all [place] [facility]. This section includes future appointments and future orders which are active, pending or scheduled. Future Appointments This section includes appointments that were scheduled to occur 6 months from the date of the Encounter, up to a maximum of 20 appointments. The data comes from all [place] treatment facilities. Appointment Date/Time Appointment Type Appointme nt Facility Name Mar 22, 2024 11:00 AM AMBULATORY - MEDICINE [place] [place] Apr 11, 2024 01:00 PM AMBULATORY - MEDICINE [place] [facility] Apr 24, 2024 01:00 PM AMBULATORY - MEDICINE [place] [place] Apr 25, 2024 04:00 PM AMBULATORY - NONE [place] [facility] Apr 26, 2024 08:50 AM AMBULATORY - MEDICINE [place] [facility] May 14, 2024 03:00 PM AMBULATORY - MEDICINE [place] [facility] May 14, 2024 03:30 PM AMBULATORY - MEDICINE [place] [facility] May 21, 2024 09:00 AM AMBULATORY - MEDICINE [facility] NTRL TRN [facility] Jun 26, 2024 02:30 PM AMBULATORY - MEDICINE [facility] Jun 26, 2024 03:00 PM AMBULATORY - MEDICINE [facility] NTRL TRN [facility] Jun 26, 2024 03:15 PM [facility] Social History: Smoking Status (Most current) and Tobacco Use (All prior to encounter date) This section includes the most current, and the historical, smoking and tobacco- related health factors from the [place] facility where the Encounter took place. Current Smoking Status This section includes the most current smoking, or tobacco-related health factor, from the [place] facility where the Encounter took place. Date/Time Current Smoking Status Comment Facil jay Mar 26, 2021 02:25 PM VA-TOBACCO NEVER USED [facility] Advance Directives: All historical and current Section Date Range: From patient's date of to the date document was created. This section includes ALL of a patient's completed or amended [place] Advance and Rescinded Directives. The entries below indicate that a directive exists for the patient, but an actual copy is not included with this document. The data comes from all [place] facilities. Date Advance Directives Provider Source Nov 04, 2016 ADVANCE DIRECTIVE RONY URRUTIA [facility] Encounter Notes: All associated encounter notes This section contains the clinical notes associated to the Encounter. Date/Time Encounter Note(s) Provider Source Dec 26, 2023 08:50 PM PHARMACY NOTE: LOCAL TITLE: V1 PHARMACY CUSTOMER CARE MEDICATION RENEWAL STANDARD TITLE: PHARMACY NOTE DATE OF NOTE: DEC 26, 2023@20:50 ENTRY DATE: DEC 26, 2023@20:50:09 AUTHOR: RANJANA JACK COSIGNER: URGENCY: STATUS: COMPLETED V1 PHARMACY CUSTOMER CARE MEDICATION RENEWAL Has ADDENDA Date: Dec Division: [facility] [place] referred by Pharmacy Call Center for medication renewal: Non-controlled/maintenan ce medication Medications requested: [id number] LIDOCAINE 5% OINT Defer to specialty clinic To be mailed . Please review and renew if appropriate. *This note was generated by [facility] Pharmacy Customer Care. If you have any questions or need assistance, do not contact this author. Please refer all questions to your local, on-site pharmacy departments. /jose cruz/ RANJANA JACK CPhT [employer], [place]/Pharmacy Customer Care Signed: 12/26/2023 20:50 Receipt Acknowledged By: 01/19/2024 13:01 /jose cruz/ SONIA BAIN MD PHYSICIAN 01/19/2024 ADDENDUM STATUS: COMPLETED Please be aware that I am no longer on station regularly, and will not be refilling medications on either a routine or emergency basis. Please refer all further requests to patient's PCM, including this one. Thank you! /shantel BAIN MD PHYSICIAN Signed: 01/19/2024 13:01 RANJANA JACK [place] CN[facility]
--- OUTSIDE RECORDS SUMMARY | 2024-07-26 16:56 | XMS_ITS ---
Author Name [place] Address [address] [place] [address] Care Team Providers Care Installation And Service Technician Name Role Phone WAYNE WHEATLEY Primary [...] Name Patient's Relationship to Policy [facility]) MEDICARE ADVANTAGE [facility] ([facility]) Aug 25, 2001 [facility] ([facility]) [id number] ADRIANA GELLER PATIENT MEDICARE ([facility]) MEDICARE (M) PART A Oct 23, 2016 PART A [id number] QUE GELLER PATIENT MEDICARE ([facility]) MEDICARE (M) PART B Oct 23, 2016 PART B [id number] QUE GELLER PATIENT MEDICARE ([facility]) MEDICARE (M) PART B Jul 25, 2011 PART B [id number] [phone] QUE GELLER PATIENT MEDICARE ([facility]) MEDICARE (M) PART B Jul 25, 2011 PART B [id number] 97A QUE GELLER PATIENT MEDICARE ([facility]) MEDICARE (M) PART B Jul 25, 2011 PART B [id number] QUE GELLER PATIENT MEDICARE ([place]) MEDICARE (M) PART A Apr 24, 2004 PART A [id number] 97A QUE GELLER PATIENT MEDICARE ([place]) MEDICARE (M) PART A Apr 24, 2004 PART A [id number] 97A QUE GELLER PATIENT MEDICARE ([place]NR) MEDICARE (M) PART A Apr 24, 2004 PART A [id number] QUE GELLER PATIENT Selected Encounter This section includes the information on record at [place] for the Encounter. Date/Time Encounter Type Encounter Description Reason Pro vider Source Aug 01, 2023 03:59 PM Outpatient Encounter COMMUNITY CARE CONSULT IHE Encounter Template Text not used by [place] Plan of Treatment: Future Appointments (+ 6 months) and Future Tests (+/- 45 days) The Plan of Treatment section includes future care activities for the patient from all [place] treatmentfacilities. This section includes future appointments and future orders which are active, pending or scheduled. Future Appointments This section includes appointments that were scheduled to occur 6 months from the date of the Encounter, up to a maximum of 20 appointments. The data comes from all [place] treatment facilities. Appointment Date/Time Appointment Type Appointme nt Facility Name Aug 24, 2023 03:45 PM [facility] Oct 05, 2023 03:00 PM [facility] Oct 20, 2023 03:30 PM [facility] Nov 18, 2023 02:15 PM [facility] Social History: Smoking Status (Most current) [...] 26, 2021 02:25 PM VA-TOBACCO NEVER USED [place] [facility] Advance Directives: All historical and current Section Date Range: From patient's date of to the date document was created. This section includes ALL of a patient's completed or amended [place] Advance and Rescinded Directives. The entries below indicate that a directive exists for the patient, but an actual copy is not included with this document. The data comes from all [place] facilities. Date Advance Directives Provider Source Nov 04, 2016 ADVANCE DIRECTIVE RONY URRUTIA [place] [facility] Encounter Notes: All associated encounter notes This section contains the clinical notes associated to the Encounter. Date/Time Encounter Note(s) Provider Source Aug 01, 2023 03:59 PM NONVA NOTE: [facility] TITLE: [facility] PRESENTING CARE COORD PLAN STANDARD TITLE: NONVA NOTE DATE OF NOTE: AUG 01, 2023@15:59 ENTRY DATE: AUG 01, 2023@15:59:59 AUTHOR: PRANEETH KILLIAN EXP COSIGNER: URGENCY: STATUS: COMPLETED Emergency Notification Intake Date Presenting to the Facility: Jun Method of Contact: Notified from ECR worklist Notification ID: [id number] [facility] Referral #: [facility] Name: Hospital: [facility] Address: City: [place] State: [place] Zip Code: Phone : [facility] Point of Contact: Name: Maria G Phone: Chief complaint: VOMITING,PAIN DR ADVISED HIM TO COME IN FOR MED CHECK Primary Diagnosis: Disposition Discharged Date of discharge: Jun Discharge to Comment: ER Only /jose cruz/ PRANEETH OLEARY Signed: 08/01/2023 16:01 Receipt Acknowledged By: 08/03/2023 15:28 /jose cruz/ ALBER MCCULLOUGH,RN,CNL Rail Operations Controller PRANEETH KILLIAN NUIQSUT
--- OUTSIDE RECORDS SUMMARY | 2024-07-26 16:56 | XMS_ITS | Encounter Summary ---
Author Name [facility] [place] Organization [place] Address [address] [place] [address] Care Team Providers Care Care Connector Name Role Phone WAYNE WHEATLEY Primary Care [...] Name Patient's Relationship to Policy [facility]) MEDICARE ADVANTAGE [facility] ([facility]) Aug 25, 2001 [facility] ([facility]) [id number] ADRIANA GELLER PATIENT MEDICARE ([facility]) MEDICARE () PART A Oct 23, 2016 PART A [id number] [phone] QUE GELLER PATIENT MEDICARE ([facility]) MEDICARE () PART B Oct 23, 2016 PART B [id number] QUE GELLER PATIENT MEDICARE ([facility]) MEDICARE () PART B Jul 25, 2011 PART B [id number] 97A QUE GELLER PATIENT MEDICARE ([facility]) MEDICARE () PART B Jul 25, 2011 PART B [id number] 97A QUE GELLER PATIENT MEDICARE ([facility]NR) MEDICARE (M) PART B Jul 25, 2011 PART B [id number] QUE GELLER PATIENT MEDICARE (WNR) MEDICARE (M) PART A Apr 24, 2004 PART A [id number] 97A QUE GELLER PATIENT MEDICARE ([place]NR) MEDICARE (M) PART A Apr 24, 2004 PART A [id number] [phone] QUE GELLER PATIENT MEDICARE ([place]NR) MEDICARE (M) PART A Apr 24, 2004 PART A [id number] [place] GELLER PATIENT Selected Encounter This section includes the information on record at [place] for the Encounter. Date/Time Encounter Type Encounter Description Reason Pro vider Source Aug 02, 2023 08:30 AM Outpatient Encounter DENTAL IHE Encounter Template Text not used by [place] Plan of Treatment: Future Appointments (+ 6 months) and Future Tests (+/- 45 days) The Plan of Treatment section includes future care activities for the patient from all [place] treatmentfacilities. This section includes future appointments and future orders which are active, pending or scheduled. Future Appointments This section includes appointments that were scheduled to occur 6 months from the date of the Encounter, up to a maximum of 20 appointments. The data comes from all [place] treatment facilities. Appointment Date/Time Appointment Type Appointme nt Facility Name Aug 24, 2023 03:45 PM AMBULATORY - NONE [facility] Oct 05, 2023 03:00 PM [facility] Oct 20, 2023 03:30 PM AMBULATORY - NEUROLOGY [facility] Nov 18, 2023 02:15 PM AMBULATORY - [facility]INE [facility] Social History: Smoking Status (Most current) [...] 26, 2021 02:25 PM VA-TOBACCO NEVER USED [facility] Advance Directives: All historical and current Section Date Range: From patient's date of to the date document was created. This section includes ALL of a patient's completed or amended [place] Advance and Rescinded Directives. The entries below indicate that a directive exists for the patient, but an actual copy is not included with this document. The data comes from all [place] facilities. Date Advance Directives Provider Source Nov 04, 2016 ADVANCE DIRECTIVE RENANRONY BENJAMIN [facility] Encounter Notes: All associated encounter notes This section contains the clinical notes associated to the Encounter. Date/Time Encounter Note(s) Provider Source Aug 02, 2023 08:30 AM TELEHEALTH NOTE: LOCAL TITLE: TELEPHONE NOTE/DENTAL STANDARD TITLE: TELEHEALTH NOTE DATE OF NOTE: AUG 02, 2023@08:30 ENTRY DATE: AUG 02, 2023@08:30:22 AUTHOR: POP JOSEPH EXP COSIGNER: URGENCY: STATUS: COMPLETED Called pt and LM to confirm dental appointment on 08/03/2023 at 3:45 pm /jose cruz/ POP JOSEPH [employer]VANCED SOLE SEAMER Signed: 08/02/2023 08:31 POP JOSEPH [facility]
--- OUTSIDE RECORDS SUMMARY | 2024-07-26 16:57 | XMS_ITS | Encounter Summary ---
Author Name [place] Address [address] [place] [address] Care Team Providers Care Vamp Creaser Name Role Phone WAYNE WHEATLEY Primary Care [...] Name Patient's Relationship to Policy [facility]) MEDICARE ADVANTAGE [facility] ([facility]) Aug 25, 2001 [facility] ([facility]) [id number] DUYENADRIANA JOHN PATIENT MEDICARE (WN) MEDICARE (M) PART A Oct 23, 2016 PART A [id number] QUE GELLER PATIENT MEDICARE ([facility]) MEDICARE (M) PART B Oct 23, 2016 PART B [id number] QUE GELLER PATIENT MEDICARE (WN) MEDICARE (M) PART B Jul 25, 2011 PART B [id number] QUE GELLER PATIENT MEDICARE ([facility]) MEDICARE (M) PART B Jul 25, 2011 PART B [id number] [phone] QUE GELLER PATIENT MEDICARE (WNR) MEDICARE (M) PART B Jul 25, 2011 PART B [id number] QUE GE[place]ER PATIENT MEDICARE (WNR) MEDICARE (M) PART A Apr 24, 2004 PART A [id number] [place] GE[place]ER PATIENT MEDICARE (WNR) MEDICARE (M) PART A Apr 24, 2004 PART A [id number] QUE GELLER PATIENT MEDICARE (WNR) MEDICARE (M) PART A Apr 24, 2004 PART A [id number] [phone] QUE GELLER PATIENT Selected Encounter This section includes the information on record at [place] for the Encounter. Date/Time Encounter Type Encounter Description Reason Pro vider Source Jan 29, 2024 02:31 AM Outpatient Encounter ADMIN PAT ACTIVTIES (MASNONCT) IHE Encounter Template Text not used by [place] Plan of Treatment: Future Appointments (+ 6 months) and Future Tests (+/- 45 days) The Plan of Treatment section includes future care activities for the patient from all [place] treatmentfacilities. This section includes future appointments and future orders which are active, pending or scheduled. Future Appointments This section includes appointments that were scheduled to occur 6 months from the date of the Encounter, up to a maximum of 20 appointments. The data comes from all [place] treatment facilities. Appointment Date/Time Appointment Type Appointme nt Facility Name Mar 22, 2024 11:00 AM AMBULATORY - MEDICINE [facility] [place] Apr 11, 2024 01:00 PM AMBULATORY - MEDICINE [place] [facility] [place] [facility] Apr 24, 2024 01:00 PM AMBULATORY - MEDICINE [facility] [place] Apr 25, 2024 04:00 PM AMBULATORY - NONE [place] [facility] [place] [facility] Apr 26, 2024 08:50 AM AMBULATORY - MEDICINE [place] [facility] [place] [facility] May 14, 2024 03:00 PM AMBULATORY - MEDICINE [place] [facility] [facility] May 14, 2024 03:30 PM AMBULATORY - MEDICINE [place] [facility] [place] [facility] May 21, 2024 09:00 AM AMBULATORY - MEDICINE [place] [facility] [place] [facility] Jun 26, 2024 02:30 PM AMBULATORY - MEDICINE [place] [facility] [facility] Jun 26, 2024 03:00 PM AMBULATORY - MEDICINE [place] [facility] [facility] Jun 26, 2024 03:15 PM AMBULATORY - MEDICINE [place] [facility] [facility] Jul 03, 2024 04:00 PM [facility]ULATORY - [facility]ICINE [facility] Lab Results: +/- 30 days of the encounter This section includes the Chemistry and Hematology Lab Results on record with [place] for the patient. Radiology Reports and Pathology Reports are provided separately, in subsequent sections. Lab Results This section contains the Chemistry/Hematology Results that were resulted 30 days before or 30 daysafter the date of the Encounter. Date/Time Source Result Type Result - Unit Interpretation Reference Range Comment Feb 13, 2024 02:01 PM [place] TSH Specimen Type: SERUM No comment entered. Ordering Provider: BHAVANI BYRD Report Released Date/Time: December 12, 2023 09:14 PM Reporting Lab: [place] [facility] [address] [facility] [address] Performing Lab: [place] [facility] [address] [address] TSH 6.71 u[IU]/mL H 0.35-5.00 Social History: Smoking Status (Most current) and Tobacco Use (All prior to encounter date) This section includes the most current, and the historical, smoking and tobacco- related health factors from the [place] facility where the Encounter took place. Current Smoking Status This section includes the most current smoking, or tobacco-related health factor, from the [place] facility where the Encounter took place. Date/Time Current Smoking Status Comment Catie thompson Mar 26, 2021 02:25 PM VA-TOBACCO NEVER USED [place] CN[facility] Advance Directives: All historical and current Section Date Range: From patient's date of to the date document was created. This section includes ALL of a patient's completed or amended [place] Advance and Rescinded Directives. The entries below indicate that a directive exists for the patient, but an actual copy is not included with this document. The data comes from all [place] facilities. Date Advance Directives Provider Source Nov 04, 2016 ADVANCE DIRECTIVE [facility]ONY [facility]UTIA [facility] Encounter Notes: All associated encounter notes This section contains the clinical notes associated to the Encounter. Date/Time Encounter Note(s) Provider Source Jan 29, 2024 02:31 AM PHARMACY NOTE: LOCAL TITLE: V1 PHARMACY CUSTOMER CARE MEDICATION RENEWAL STANDARD TITLE: PHARMACY NOTE DATE OF NOTE: JAN 29, 2024@02:31 ENTRY DATE: JAN 29, 2024@02:31:42 AUTHOR: RITA COOL COSIGNER: URGENCY: STATUS: COMPLETED Date: Jan Division: [facility] referred by Pharmacy Call Center for medication renewal: Non-controlled/maintenan ce medication Medications requested: [id number] FERROUS SULFATE 325MG TAB [id number] PAROXETINE HCL 40MG TAB Defer to primary care provider To be mailed . Please review and renew if appropriate. *This note was generated by [facility] Pharm[facility] Customer Care. If you have any questions or need assistance, do not contact this author. Please refer all questions to your local, on-site pharmacy departments. /jose cruz/ RITA COOL [facility] Building Performance Specialist, [place]/Pharmacy Customer Care Signed: 01/29/2024 02:32 Receipt Acknowledged By: 01/31/2024 07:26 /jose cruz/ WAYNE WHEATLEY NP NURSE PRACTITIONER 01/30/2024 11:07 /jose cruz/ BONNIE WILLIS RN REGISTERED NURSE RITA COOLRL WSN [facility]
--- OUTSIDE RECORDS SUMMARY | 2024-07-26 16:57 | XMS_ITS ---
Author Name [place] Address [address] [place] [address] Care Team Providers Care Lead Business Systems Analyst Name Role Phone WAYNE WHEATLEY Primary [...] Relationship to Policy [facility]) MEDICARE ADVANTAGE [facility] ([facility]) Aug 25[facility] 2001 [facility] ([facility]) [id number] TIERNEYADRIANA RUSSO PATIENT MEDICARE ([facility]) MEDICARE (M) PART A Oct 23, 2016 PART A [id number] QUE GELLER PATIENT MEDICARE ([facility]) MEDICARE (M) PART B Oct 23, 2016 PART B [id number] [place] GE[place] PATIENT MEDICARE (WN) MEDICARE (M) PART B Jul 25, 2011 PART B [id number] [phone] QUE GELLER PATIENT MEDICARE ([facility]) MEDICARE (M) PART B Jul 25, 2011 PART B [id number] [phone] [place] GELLER PATIENT MEDICARE (WNR) MEDICARE (M) PART B Jul 25, 2011 PART B [id number] QUE GELLER PATIENT MEDICARE (WNR) MEDICARE (M) PART A Apr 24, 2004 PART A [id number] QUE GELLER PATIENT MEDICARE (WNR) MEDICARE (M) PART A Apr 24, 2004 PART A [id number] QUE GELLER PATIENT MEDICARE (WNR) MEDICARE (M) PART A Apr 24, 2004 PART A [id number] QUE GELLER PATIENT Selected Encounter This section includes the information on record at [place] for the Encounter. Date/Time Encounter Type Encounter Description Reason Pro vider Source Feb 07, 2024 12:00 AM Outpatient Encounter EVENT (HISTORICAL) IHE Encounter Template Text not used by [place] Plan of Treatment: Future Appointments (+ 6 months) and Future Tests (+/- 45 days) The Plan of Treatment section includes future care activities for the patient from all [place] treatmentfacilities. This section includes future appointments and future orders which are active, pending or scheduled. Future Appointments This section includes appointments that were scheduled to occur 6 months from the date of the Encounter, up to a maximum of 20 appointments. The data comes from all [place] treatment facilities. Appointment Date/Time Appointment Type Appointme nt Facility Name Mar 22, 2024 11:00 AM AMBULATORY - MEDICINE [facility] Apr 11, 2024 01:00 PM AMBULATORY - MEDICINE [place] [facility] [place] [facility] Apr 24, 2024 01:00 PM [facility] Apr 25, 2024 04:00 PM AMBULATORY - NONE [place] [facility] [place] [facility] Apr 26, 2024 08:50 AM AMBULATORY - MEDICINE [place] [facility] [place] [facility] May 14, 2024 03:00 PM AMBULATORY - MEDICINE [place] [facility] [place] [facility] May 14, 2024 03:30 PM AMBULATORY - MEDICINE [place] [facility] [facility] May 21, 2024 09:00 AM AMBULATORY - MEDICINE [place] [facility] [place] [facility] Jun 26, 2024 02:30 PM AMBULATORY - MEDICINE [place] [facility] [place] [facility] Jun 26, 2024 03:00 PM AMBULATORY - MEDICINE [facility] [place] [facility] Jun 26, 2024 03:15 PM AMBULATORY - MEDICINE [facility] [place] [facility] Jul 03, 2024 04:00 PM AM[facility]ULATORY - [facility]ICINE [facility] Active, Pending, and Scheduled Orders This section includes a listing of several types of active, pending, and scheduled orders, including clinic medications orders, diagnostic test orders, procedure orders and consult orders; where the start date of the order is 45 days before the date of the Encounter or 45 days after the date of theEncounter. The data comes from all [place] treatment facilities. Test Date/Time Test Type Test Details Facility Name Mar 22, 2024 12:13 PM Consult Order [facility]-MRI Cons [facility] Lab Results: +/- 30 days of the encounter This section includes the Chemistry and Hematology Lab Results on record with [place] for the patient. Radiology Reports and Pathology Reports are provided separately, in subsequent sections. Lab Results This section contains the Chemistry/Hematology Results that were resulted 30 days before or 30 daysafter the date of the Encounter. Date/Time Source Result Type Result - Unit Interpretation Reference Range Comment Feb 13, 2024 02:01 PM [facility] TSH Specimen Type: SERUM No comment entered. Ordering Provider: BHAVANI BYRD Report Released Date/Time: December 12, 2023 09:14 PM Reporting [facility] [address] [address] Performing Lab: [place] [facility] [address] [address] TSH 6.71 u[IU]/mL H 0.35-5.00 Social History: Smoking Status (Most current) and Tobacco Use (All prior to encounter date) This section includes the most current, and the historical, smoking and tobacco- related health factors from the [place] facility where the Encounter took place. Current Smoking Status This section includes the most current smoking, or tobacco-related health factor, from the [place] facility where the Encounter took place. Date/Time Current Smoking Status Comment Catie thompson Mar 26, 2021 02:25 PM VA-TOBACCO NEVER USED [place] CN[facility] Advance Directives: All historical and current Section Date Range: From patient's date of to the date document was created. This section includes ALL of a patient's completed or amended [place] Advance and Rescinded Directives. The entries below indicate that a directive exists for the patient, but an actual copy is not included with this document. The data comes from all [place] facilities. Date Advance Directives Provider Source Nov 04, 2016 ADVANCE DIRECTIVE RONY URRUTIA [place] [facility]
--- OUTSIDE RECORDS SUMMARY | 2024-07-26 16:57 | XMS_ITS ---
Author Name [place] Organization [place] Address [address] [place] [address] Care Team Providers Care Drapery Supervisor Name Role Phone WAYNE WHEATLEY Primary [...] Name Patient's Relationship to Policy [facility]) MEDICARE ADVANTAGE [facility] ([facility]) Aug 25, 2001 [facility] ([facility]) [id number] ADRIANA GELLER PATIENT MEDICARE ([facility]) MEDICARE (M) PART A Oct 23, 2016 PART A [id number] QUE GE[place]ER PATIENT MEDICARE ([facility]) MEDICARE (M) PART B Oct 23, 2016 PART B [id number] [phone] QUE GELLER PATIENT MEDICARE ([facility]) MEDICARE (M) PART B Jul 25, 2011 PART B [id number] QUE GELLER PATIENT MEDICARE ([facility]) MEDICARE (M) PART B Jul 25, 2011 PART B [id number] QUE GELLER PATIENT MEDICARE (WNR) MEDICARE (M) PART B Jul 25, 2011 PART B [id number] QUE GELLER PATIENT MEDICARE (WNR) MEDICARE (M) PART A Apr 24, 2004 PART A [id number] [phone] QUE GELLER PATIENT MEDICARE (WNR) MEDICARE (M) PART A Apr 24, 2004 PART A [id number] QUE GELLER PATIENT MEDICARE (WNR) MEDICARE (M) PART A Apr 24, 2004 PART A [id number] QUE GELLER PATIENT Selected Encounter This section includes the information on record at [place] for the Encounter. Date/Time Encounter Type Encounter Description Reason Pro vider Source Feb 07, 2024 07:53 AM Outpatient Encounter TELEPHONE PRIMARY CARE IHE Encounter Template Text not used by [place] Plan of Treatment: Future Appointments (+ 6 months) and Future Tests (+/- 45 days) The Plan of Treatment section includes future care activities for the patient from all [place] treatmentfacilities. This section includes future appointments and future orders which are active, pending or scheduled. Future Appointments This section includes appointments that were scheduled to occur 6 months from the date of the Encounter, up to a maximum of 20 appointments. The data comes from all [place] treatment facilities. Appointment Date/Time Appointment Type Appointme nt Facility Name Mar 22, 2024 11:00 AM AMBULATORY - MEDICINE [facility] Apr 11, 2024 01:00 PM AMBULATORY - MEDICINE [place] [facility] [facility] Apr 24, 2024 01:00 PM AMBULATORY - MEDICINE [facility] Apr 25, 2024 04:00 PM AMBULATORY - NONE [place] [facility] [place] [facility] Apr 26, 2024 08:50 AM AMBULATORY - MEDICINE [place] [facility] [place] [facility] May 14, 2024 03:00 PM AMBULATORY - MEDICINE [place] [facility] [place] [facility] May 14, 2024 03:30 PM AMBULATORY - MEDICINE [place] [facility] [place] [facility] May 21, 2024 09:00 AM AMBULATORY - MEDICINE [place] [facility] [place] [facility] Jun 26, 2024 02:30 PM AMBULATORY - MEDICINE [place] [facility] [place] [facility] Jun 26, 2024 03:00 PM AMBULATORY - MEDICINE [place] [facility] [place] [facility] Jun 26, 2024 03:15 PM AMBULATORY - MEDICINE [facility] [place] [facility] Jul 03, 2024 04:00 PM [facility]ORY - [facility]ICINE [facility] Active, Pending, and Scheduled Orders This section includes a listing of several types of active, pending, and scheduled orders, including clinic medications orders, diagnostic test orders, procedure orders and consult orders; where the start date of the order is 45 days before the date of the Encounter or 45 days after the date of theEncounter. The data comes from all [place] treatment facilities. Test Date/Time Test Type Test Details Facility Name Mar 22, 2024 12:13 PM Consult Order [facility] [employer] [facility] Lab Results: +/- 30 days of the encounter This section includes the Chemistry and Hematology Lab Results on record with [place] for the patient. Radiology Reports and Pathology Reports are provided separately, in subsequent sections. Lab Results This section contains the Chemistry/Hematology Results that were resulted 30 days before or 30 daysafter the date of the Encounter. Date/Time Source Result Type Result - Unit Interpretation Reference Range Comment Feb 13, 2024 02:01 PM [facility] TSH Specimen Type: SERUM No comment entered. Ordering Provider: BHAVANI BYRD Report Released Date/Time: December 12, 2023 09:14 PM Reporting Lab[facility] [address] [address] Performing Lab: [facility] [address] [address] TSH 6.71 u[IU]/mL H 0.35-5.00 Social History: Smoking Status (Most current) and Tobacco Use (All prior to encounter date) This section includes the most current, and the historical, smoking and tobacco- related health factors from the [place] facility where the Encounter took place. Current Smoking Status This section includes the most current smoking, or tobacco-related health factor, from the [place] facility where the Encounter took place. Date/Time Current Smoking Status Comment Catie thompson Mar 26, 2021 02:25 PM VA-TOBACCO NEVER USED [facility] Advance Directives: All historical and current Section Date Range: From patient's date of to the date document was created. This section includes ALL of a patient's completed or amended [place] Advance and Rescinded Directives. The entries below indicate that a directive exists for the patient, but an actual copy is not included with this document. The data comes from all [place] facilities. Date Advance Directives Provider Source Nov 04, 2016 ADVANCE DIRECTIVE RONY URRUTIA [facility] Encounter Notes: All associated encounter notes This section contains the clinical notes associated to the Encounter. Date/Time Encounter Note(s) Provider Source Feb 07, 2024 07:53 AM PREVENTIVE MEDICIN E NURSING NOTE: LOCAL TITLE: CLINICAL REMINDERS/NURSING STANDARD TITLE: PREVENTIVE MEDICINE NURSING NOTE DATE OF NOTE: FEB 07, 2024@07:53 ENTRY DATE: FEB 07, 2024@07:53:21 AUTHOR: MARGUERITE SCANLON EXP COSIGNER: URGENCY: STATUS: COMPLETED Colonoscopy GAP Reminder: Recommendations are needed in the clinical reminder system following the patient's most recent colorectal cancer screening/surveillance test (Colonoscopy, Sigmoidoscopy or CT Colonography) Prior/outside colonoscopy results: Last [place] 06/23/21, repeat 7yrs for surveillance In [facility] Date: June 23, 2021 Colonoscopy reminder set 4 years from FEB 07, 2024. LIN GIORDANO MD 06/23/2021 12:35:05 PM Recommendation: - Discharge patient to home. - Resume previous diet. - Continue present medications. - Await pathology results. - Repeat colonoscopy in 7 years for surveillance. - Return to GI office as previously scheduled. /jose cruz/ Marguerite Scanlon MSN RN CNL Primary Care RN Signed: 02/07/2024 07:54 MARGUERITE SCANLON [facility]
--- OUTSIDE RECORDS SUMMARY | 2024-07-26 16:57 | XMS_ITS | Encounter Summary ---
Author Name [facility] [place] Organization [place] Address [address] [place] [address] Care Team Providers Care Alarm Installation Technician Name Role Phone WAYNE WHEATLEY Primary [...] Name Patient's Relationship to Policy [facility]) MEDICARE ADVANTAGE [facility] ([facility]) Aug 25, 2001 [facility] ([facility]) [id number] DOMADRIANA SALINAS JOHN PATIENT MEDICARE ([facility]) MEDICARE (M) PART A Oct 23, 2016 PART A [id number] QUE GELLER PATIENT MEDICARE ([facility]) MEDICARE (M) PART B Oct 23, 2016 PART B [id number] QUE GELLER PATIENT MEDICARE ([facility]) MEDICARE (M) PART B Jul 25, 2011 PART B [id number] 97A QUE GELLER PATIENT MEDICARE ([facility]) MEDICARE (M) PART B Jul 25, 2011 PART B [id number] 97A QUE GELLER PATIENT MEDICARE (WNR) MEDICARE (M) PART B Jul 25, 2011 PART B [id number] QUE GELLER PATIENT MEDICARE (WNR) MEDICARE (M) PART A Apr 24, 2004 PART A [id number] 97A QUE GELLER PATIENT MEDICARE (WNR) MEDICARE (M) PART A Apr 24, 2004 PART A [id number] 97A QUE GELLER PATIENT MEDICARE (WNR) MEDICARE (M) PART A Apr 24, 2004 PART A [id number] QUE GELLER PATIENT Selected Encounter This section includes the information on record at [place] for the Encounter. Date/Time Encounter Type Encounter Description Reason Pro vider Source Feb 02, 2024 05:33 PM Outpatient Encounter ADMIN PAT ACTIVTIES (MASNONCT) IHE Encounter Template Text not used by [place] Plan of Treatment: Future Appointments (+ 6 months) and Future Tests (+/- 45 days) The Plan of Treatment section includes future care activities for the patient from all [place] treatmentfacilities. This section includes future appointments and future orders which are active, pending or scheduled. Future Appointments This section includes appointments that were scheduled to occur 6 months from the date of the Encounter, up to a maximum of 20 appointments. The data comes from all [place] treatment facilities. Appointment Date/Time Appointment Type Appointme nt Facility Name Mar 22, 2024 11:00 AM AMBULATORY - MEDICINE [facility] [place] Apr 11, 2024 01:00 PM AMBULATORY - MEDICINE [place] [facility] [place] [facility] Apr 24, 2024 01:00 PM AMBULATORY - MEDICINE [place] Apr 25, 2024 04:00 PM AMBULATORY - NONE [place] [facility] [place] [facility] Apr 26, 2024 08:50 AM AMBULATORY - MEDICINE [place] [facility] [place] [facility] May 14, 2024 03:00 PM AMBULATORY - MEDICINE [place] [facility] [place] [facility] May 14, 2024 03:30 PM AMBULATORY - MEDICINE [place] [facility] [place] [facility] May 21, 2024 09:00 AM AMBULATORY - MEDICINE [place] [facility] [place] [facility] Jun 26, 2024 02:30 PM AMBULATORY - MEDICINE [place] [facility] [place] [facility] Jun 26, 2024 03:00 PM AMBULATORY - MEDICINE [place] [facility] [place] [facility] Jun 26, 2024 03:15 PM AMBULATORY - MEDICINE [place] [facility] [place] [facility] Jul 03, 2024 04:00 PM AMBULATORY - MEDICINE [facility] Lab Results: +/- 30 days of the encounter This section includes the Chemistry and Hematology Lab Results on record with [place] for the patient. Radiology Reports and Pathology Reports are provided separately, in subsequent sections. Lab Results This section contains the Chemistry/Hematology Results that were resulted 30 days before or 30 daysafter the date of the Encounter. Date/Time Source Result Type Result - Unit Interpretation Reference Range Comment Feb 13, 2024 02:01 PM [place] TSH Specimen Type: SERUM No comment entered. Ordering Provider: BHAVANI BYRD Report Released Date/Time: December 12, 2023 09:14 PM Reporting Lab: [facility] [address] [facility] [address] Performing Lab: [place] [facility] [address] [address] TSH 6.71 u[IU]/mL H 0.35-5.00 Social History: Smoking Status (Most current) and Tobacco Use (All prior to encounter date) This section includes the most current, and the historical, smoking and tobacco- related health factors from the [place] facility where the Encounter took place. Current Smoking Status This section includes the most current smoking, or tobacco-related health factor, from the [place] facility where the Encounter took place. Date/Time Current Smoking Status Comment Catie thompson Mar 26, 2021 02:25 PM VA-TOBACCO NEVER USED DE CNTR [facility] Advance Directives: All historical and current Section Date Range: From patient's date of to the date document was created. This section includes ALL of a patient's completed or amended VA Advance and Rescinded Directives. The entries below indicate that a directive exists for the patient, but an actual copy is not included with this document. The data comes from all [place] facilities. Date Advance Directives Provider Source Nov 04, 2016 ADVANCE DIRECTIVE IVONNEELSYRONY [place] CNTR L [facility] Encounter Notes: All associated encounter notes This section contains the clinical notes associated to the Encounter. Date/Time Encounter Note(s) Provider Source Feb 02, 2024 05:33 PM ADMINISTRATIVE NOT E: LOCAL TITLE: [facility]: SCHEDULING ADMINISTRATION STANDARD TITLE: ADMINISTRATIVE NOTE DATE OF NOTE: FEB 02, 2024@17:33 ENTRY DATE: FEB 02, 2024@17:33:58 AUTHOR: LO HICKS EXP COSIGNER: URGENCY: STATUS: COMPLETED [place] contacted [facility] asking for a medication renewal /new script for Paxil 40mg. Can you please re-order, thank you. /jose cruz/ LO FORD 2 [facility] AMSA Signed: 02/02/2024 17:34 Receipt Acknowledged By: 02/03/2024 07:48 /es/ WAYNE WHEATLEY NP NURSE PRACTITIONER 02/03/2024 08:44 /es/ BONNIE WILLIS RN REGISTERED NURSE [facility]IC[facility]
--- OUTSIDE RECORDS SUMMARY | 2024-07-26 16:57 | XMS_ITS | Encounter Summary ---
Author Name [place] Organization [place] Address [address] [place] [address] Care Team Providers Care Production Quality Analyst Name Role Phone WAYNE WHEATLEY Primary [...] Name Patient's Relationship to Policy [facility] MEDICARE ADVANTAGE [facility] ([facility]) Aug 25, 2001 [facility] ([facility]) [id number] ADRIANA GELLER PATIENT MEDICARE ([facility]) MEDICARE () PART A Oct 23, 2016 PART A [id number] QUE GE[place]ER PATIENT MEDICARE ([facility]) MEDICARE () PART B Oct 23, 2016 PART B [id number] [place] GE[place]ER PATIENT MEDICARE ([facility]) MEDICARE () PART B Jul 25, 2011 PART B [id number] [phone] QUE GELLER PATIENT MEDICARE ([facility]) MEDICARE () PART B Jul 25, 2011 PART B [id number] 97A QUE GELLER PATIENT MEDICARE (WNR) MEDICARE (M) PART B Jul 25, 2011 PART B [id number] QUE GELLER PATIENT MEDICARE (WNR) MEDICARE (M) PART A Apr 24, 2004 PART A [id number] 97A QUE GELLER PATIENT MEDICARE (WNR) MEDICARE (M) PART A Apr 24, 2004 PART A [id number] 97A QUE GELLER PATIENT MEDICARE (WNR) MEDICARE (M) PART A Apr 24, 2004 PART A [id number] QUE GELLER PATIENT Selected Encounter This section includes the information on record at [place] for the Encounter. Date/Time Encounter Type Encounter Description Reason Pro vider Source Aug 23, 2023 09:05 AM Outpatient Encounter DENTAL IHE Encounter Template [...] 24, 2023 03:45 PM [facility] Oct 05, 2023 03:00 PM [facility] Oct 20, 2023 03:30 PM [facility] - [facility]Y [facility] Nov 18, 2023 02:15 PM [facility] Social History: Smoking Status (Most current) [...] 26, 2021 02:25 PM VA-TOBACCO NEVER USED [facility] Advance Directives: All historical [...] Source Nov 04, 2016 ADVANCE DIRECTIVE [facility] Encounter Notes: All associated encounter notes This section contains the clinical notes associated to the Encounter. Date/Time Encounter Note(s) Provider Source Aug 23, 2023 09:05 AM TELEHEALTH NOTE: LOCAL TITLE: TELEPHONE NOTE/DENTAL STANDARD TITLE: TELEHEALTH NOTE DATE OF NOTE: AUG 23, 2023@09:05 ENTRY DATE: AUG 23, 2023@09:05:18 AUTHOR: POP JOSEPH EXP COSIGNER: URGENCY: STATUS: COMPLETED Called pt and LM to confirm dental appointment on 08/24/2023 at 3:45 pm. /jose cruz/ POP JOSEPH ADVANCED SKIN PILER Signed: 08/23/2023 09:06 POP JOSEPH [facility]
--- OUTSIDE RECORDS SUMMARY | 2024-07-26 16:57 | XMS_ITS | Encounter Summary ---
Author Name Department [place] Organization [place] Address [address] [place] [address] Care Team Providers Care Technology Engineer Name Role Phone WAYNE WHEATLEY Primary Care [...] to Policy [facility]) MEDICARE ADVANTAGE [facility] ([facility]) Aug 25, 2001 [facility] ([facility]) [id number] ADRIANA GELLER PATIENT MEDICARE ([facility]) MEDICARE () PART A Oct 23, 2016 PART A [id number] QUE GELLER PATIENT MEDICARE ([facility]) MEDICARE () PART B Oct 23, 2016 PART B [id number] QUE GELLER PATIENT MEDICARE ([facility]) MEDICARE () PART B Jul 25, 2011 PART B [id number] [phone] QUE GELLER PATIENT MEDICARE ([facility]) MEDICARE (M) PART B Jul 25, 2011 PART B [id number] 97A QUE GELLER PATIENT MEDICARE (WNR) MEDICARE (M) PART B Jul 25, 2011 PART B [id number] QUE GELLER PATIENT MEDICARE (WNR) MEDICARE (M) PART A Apr 24, 2004 PART A [id number] 97A QUE GELLER PATIENT MEDICARE (WNR) MEDICARE (M) PART A Apr 24, 2004 PART A [id number] 97A QUE GELLER PATIENT MEDICARE (WNR) MEDICARE (M) PART A Apr 24, 2004 PART A [id number] [phone] QUE GELLER PATIENT Selected Encounter This section includes the information on record at [place] for the Encounter. Date/Time Encounter Type Encounter Description Reason Pro vider Source Jan 30, 2024 12:57 PM Outpatient Encounter TELEPHONE TRIAGE IHE Encounter Template Text not used by [place] Plan of Treatment: Future Appointments (+ 6 [...] AMBULATORY - MEDICINE [facility] Apr 11, 2024 01:00 PM AMBULATORY - MEDICINE [place] [facility] [place] [facility] Apr 24, 2024 01:00 PM AMBULATORY - MEDICINE [facility] Apr 25, 2024 04:00 PM AMBULATORY - NONE [place] [facility] [place] [facility] Apr 26, 2024 08:50 AM AMBULATORY - MEDICINE [place] [facility] [facility] May 14, 2024 03:00 PM AMBULATORY - MEDICINE [place] C [facility] [facility] May 14, 2024 03:30 PM AMBULATORY - MEDICINE [place] [facility] [facility] May 21, 2024 09:00 AM AMBULATORY - MEDICINE [place] C [facility] [facility] Jun 26, 2024 02:30 PM AMBULATORY - MEDICINE [place] C [facility] [facility] Jun 26, 2024 03:00 PM AMBULATORY - MEDICINE [place] C [facility] [facility] Jun 26, 2024 03:15 PM AMBULATORY - MEDICINE [place] [facility] [facility] Jul 03, 2024 04:00 PM [facility]ULATORY - [facility]ICINE [facility] Lab Results: +/- 30 days of the encounter This section includes the Chemistry and Hematology Lab Results on record with [place] for the patient. Radiology Reports and Pathology Reports are provided separately, in subsequent sections. Lab Results This section contains the Chemistry/Hematology Results that were resulted 30 days before or 30 daysafter the date of the Encounter. Date/Time Source Result Type Result - Unit Interpretation Reference Range Comment Feb 13, 2024 02:01 PM [place] TSH Specimen Type: SERUM No comment entered. Ordering Provider: BHAVANI BYRD Report Released Date/Time: December 12, 2023 09:14 PM Reporting Lab: [place] [facility] [address] [address] Performing Lab: [place] [facility] [address] [address] TSH 6.71 u[IU]/mL H 0.35-5.00 Social History: [...] 26, 2021 02:25 PM VA-TOBACCO NEVER USED [place] CNTR [facility] Advance Directives: All historical and current Section [...] Nov 04, 2016 ADVANCE DIRECTIVE RONY URRUTIA [place] CNTR L [facility] Encounter Notes: All associated encounter notes This section contains the clinical notes associated to the Encounter. Date/Time Encounter Note(s) Provider Source Feb 04, 2024 02:35 PM ADDENDUM: LOCAL TITLE: Addendum STANDARD TITLE: ADDENDUM DATE OF NOTE: FEB 04, 2024@14:35:51 ENTRY DATE: FEB 04, 2024@14:35:53 AUTHOR: WAYNE WHEATLEY COSIGNER: URGENCY: STATUS: COMPLETED He was seen in consult by [facility] on 11/18/2023. Those notes have been requested by our community care office. Please submit another request for that office visit note and any testing that was conducted. In addition, please contact the patient and request he come in for repeat thyroid labs. Thank you. /jose cruz/ WAYNE WHEATLEY NP NURSE PRACTITIONER Signed: 02/04/2024 14:37 Receipt Acknowledged By: 02/07/2024 10:49 /es/ OLI AUSTIN LPN LICENSED PRACTICAL NURSE 02/07/2024 10:27 /es/ ТАТЬЯНА PEPPER ADVANCE REPRODUCTION SPECIALIST 02/07/2024 11:36 /es/ BONNIE WILLIS RN REGISTERED NURSE --- Original Document --- 01/30/24 CCC: CLINICAL TRIAGE: Patient Demographics Patient Name: KAM GELLER Patient Primary [address]: [address] [place] [id number] Patient Primary Phone: [phone] Patient : 1950 Patient Age: 73 Caller/Recipient Relation to Patient: Self Emergency Contact: MEI GELLER Patient Disposition Patient/Caregiver agrees to plan of care: Yes Nursing Plan and Disposition Other course(s) of action Generated msg to PACT/Provider Nurse Summary Nurse Summary: [place] calls to report feeling sick to stomach for months . He reports being seen by [facility] and having all testing done with no source . He is taking all new meds prescribed by PCP with no improvement. [place] declines triage as ER and UC are a disaster . He would like to be called by PACT for plan of treatment after they receive update that meds are not working . Clinical Contact Center Codes Clinic/Location: [facility] PHONE CCC RN Notes Notes & Information: non-triage /es/ ERICH SIDHU [id number] Signed: 01/30/2024 12:58 Receipt Acknowledged By: 02/01/2024 08:43 /es/ OLI AUSTIN LPN LICENSED PRACTICAL NURSE 02/06/2024 09:56 /es/ BONNIE WILLIS RN REGISTERED NURSE 02/01/2024 ADDENDUM STATUS: COMPLETED To PCP. What do you want to try next? /jose cruz/ OLI AUSTIN LPN LICENSED PRACTICAL NURSE Signed: 02/01/2024 08:44 Receipt Acknowledged By: 02/04/2024 14:40 /jose cruz/ WAYNE WHEATLEY NP NURSE PRACTITIONER 02/07/2024 ADDENDUM STATUS: COMPLETED THIS EXECUTIVE ADMINISTRATIVE ASSISTANT WAS UNABLE TO REACH LVM TO COME IN TO DO REPEAT LABS ALSO SET FAX REQUEST FOR RECORDS FROM [facility] [phone] /es/ ТАТЬЯНА PEPPER ADVANCE REPRODUCTION SPECIALIST Signed: 02/07/2024 10:26 WAYNE WHEATLEY [place] [facility] Feb 01, 2024 08:43 AM ADDENDUM: LOCAL TITLE: Addendum STANDARD TITLE: ADDENDUM DATE OF NOTE: FEB 01, 2024@08:43:49 ENTRY DATE: FEB 01, 2024@08:43:49 AUTHOR: OLI AUSTIN EXP COSIGNER: URGENCY: STATUS: COMPLETED To PCP. What do you want to try next? /jose cruz/ OLI AUSTIN LPN LICENSED PRACTICAL NURSE Signed: 02/01/2024 08:44 Receipt Acknowledged By: 02/04/2024 14:40 /jose cruz/ WAYNE WHEATLEY NP NURSE PRACTITIONER --- Original Document --- 01/30/24 CCC: CLINICAL TRIAGE: Patient Demographics Patient Name: KAM GELLER Patient Primary Address: [address] [place] [address] Patient Primary Phone: [phone] Patient : 1950 Patient Age: 73 Caller/Recipient Relation to Patient: Self Emergency Contact: MEI GELLER Patient Disposition Patient/Caregiver agrees to plan of care: Yes Nursing Plan and Disposition Other course(s) of action Generated msg to PACT/Provider Nurse Summary Nurse Summary: Shail[place] calls to report feeling sick to stomach for months . He reports being seen by [facility] and having all testing done with no source . He is taking all new meds prescribed by PCP with no improvement. [place] declines triage as ER and UC are a disaster . He would like to be called by PACT for plan of treatment after they receive update that meds are not working . Clinical Contact Center Codes Clinic/Location: [facility] PHONE CCC RN Notes Notes & Information: non-triage /es/ ERICH SIDHU [id number] Signed: 01/30/2024 12:58 Receipt Acknowledged By: 02/01/2024 08:43 /es/ OLI AUSTIN LPN LICENSED PRACTICAL NURSE * AWAITING SIGNATURE * BONNIE WILLIS 02/04/2024 ADDENDUM STATUS: COMPLETED He was seen in consult by [facility] on 11/18/2023. Those notes have been requested by our community care office. Please submit another request for that office visit note and any testing that was conducted. In addition, please contact the patient and request he come in for repeat thyroid labs. Thank you. /jose cruz/ WAYNE WHEATLEY NP NURSE PRACTITIONER Signed: 02/04/2024 14:37 Receipt Acknowledged By: * AWAITING SIGNATURE * OLI AUSTIN * AWAITING SIGNATURE * ТАТЬЯНА PEPPER * AWAITING SIGNATURE * BONNIE WILLIS WILLIE [place] [facility] [facility] Jan 30, 2024 12:57 PM RN PROGRESS NOTE: LOCAL TITLE: [facility]: CLINICAL TRIAGE STANDARD TITLE: RN PROGRESS NOTE DATE OF NOTE: JAN 30, 2024@12:57:51 ENTRY DATE: JAN 30, 2024@12:57:51 AUTHOR: ERICH SIDHU EXP COSIGNER: URGENCY: STATUS: COMPLETED CCC: CLINICAL TRIAGE Has ADDENDA Patient Demographics Patient Name: KAM GELLER Patient Primary Address: [address] [place] [id number] Patient Primary Phone: [phone] Patient : 1950 Patient Age: 73 Caller/Recipient Relation to Patient: Self Emergency Contact: MEI GELLER Patient Disposition Patient/Caregiver agrees to plan of care: Yes Nursing Plan and Disposition Other course(s) of action Generated msg to PACT/Provider Nurse Summary Nurse Summary: [place] calls to report feeling sick to stomach for months . He reports being seen by [facility] and having all testing done with no source . He is taking all new meds prescribed by PCP with no improvement. declines triage as ER and UC are a disaster . He would like to be called by PACT for plan of treatment after they receive update that meds are not working . Clinical Contact Center Codes Clinic/Location: [facility] PHONE CCC RN Notes Notes & Information: non-triage /es/ ERICH SIDHU [id number] Signed: 01/30/2024 12:58 Receipt Acknowledged By: 02/01/2024 08:43 /jose cruz/ OLI AUSTIN LPN LICENSED PRACTICAL NURSE 02/06/2024 09:56 /jose cruz/ BONNIE WILLIS RN REGISTERED NURSE 02/01/2024 ADDENDUM STATUS: COMPLETED To PCP. What do you want to try next? /jose cruz/ OLI AUSTIN LPN LICENSED PRACTICAL NURSE Signed: 02/01/2024 08:44 Receipt Acknowledged By: 02/04/2024 14:40 /jose cruz/ WAYNE WHEATLEY NP NURSE PRACTITIONER 02/04/2024 ADDENDUM STATUS: COMPLETED He was seen in consult by [facility] on 11/18/2023. Those notes have been requested by our community care office. Please submit another request for that office visit note and any testing that was conducted. In addition, please contact the patient and request he come in for repeat thyroid labs. Thank you. /shantel WHEATLEY NP NURSE PRACTITIONER Signed: 02/04/2024 14:37 Receipt Acknowledged By: * AWAITING SIGNATURE * OLI AUSTIN 02/07/2024 10:27 /jose cruz/ ТАТЬЯНА PEPPER ADVANCE REPRODUCTION SPECIALIST * AWAITING SIGNATURE * BONNIE WILLIS 02/07/2024 ADDENDUM STATUS: COMPLETED THIS EXECUTIVE ADMINISTRATIVE ASSISTANT WAS UNABLE TO REACH LVM TO COME IN TO DO REPEAT LABS ALSO SET FAX REQUEST FOR RECORDS FROM [facility] [phone] /jose cruz/ ТАТЬЯНА PEPPER ADVANCE REPRODUCTION SPECIALIST Signed: 02/07/2024 10:26 ERICH SIDHU [place] [facility]
--- OUTSIDE RECORDS SUMMARY | 2024-07-26 16:58 | XMS_ITS | Encounter Summary ---
Author Name [facility] Organization [facility] [place] Address [address] [place] [address] Care Team Providers Care Dry Cleaning Machine Operator Helper Name Role Phone WAYNE WHEATLEY Primary Care [...] Name Patient's Relationship to Policy [facility]) MEDICARE ADVANTAGE [facility] ([facility]) Aug 25[facility] 2001 [facility] ([facility]) [id number] ADRIANA GELLER PATIENT MEDICARE ([facility]) MEDICARE (M) PART A Oct 23, 2016 PART A [id number] QUE GELLER PATIENT MEDICARE ([facility]) MEDICARE (M) PART B Oct 23, 2016 PART B [id number] QUE GELLER PATIENT MEDICARE ([facility]) MEDICARE (M) PART B Jul 25, 2011 PART B [id number] QUE GELLER PATIENT MEDICARE ([facility]) MEDICARE (M) PART B Jul 25, 2011 PART B [id number] [phone] QUE GELLER PATIENT MEDICARE (WNR) MEDICARE (M) PART B Jul 25, 2011 PART B [id number] QUE GELLER PATIENT MEDICARE (WNR) MEDICARE (M) PART A Apr 24, 2004 PART A [id number] [phone] QUE GELLER PATIENT MEDICARE (WNR) MEDICARE (M) PART A Apr 24, 2004 PART A [id number] QUE GELLER PATIENT MEDICARE (WNR) MEDICARE (M) PART A Apr 24, 2004 PART A [id number] [phone] QUE GELLER PATIENT Selected Encounter This section includes the information on record at NH for the Encounter. Date/Time Encounter Type Encounter Description Reason Pro vider Source Mar 19, 2024 05:16 PM Outpatient Encounter COMMUNITY CARE CONSULT IHE Encounter Template Text not used by NH Plan of Treatment: Future Appointments (+ 6 [...] 2024 11:00 AM [facility] - [facility]IC[facility] Apr 11, 2024 01:00 PM AM[facility]UL[facility]ORY - [facility]ICINE [facility] [place] [facility] Apr 24, 2024 01:00 PM [facility]IC[facility] Apr 25, 2024 04:00 PM AMBULATORY - NONE [facility] [place] [facility] Apr 26, 2024 08:50 AM AMBULATORY - MEDICINE [facility] [place] [facility] May 14, 2024 03:00 PM AMBULATORY - MEDICINE [facility] [place] [facility] May 14, 2024 03:30 PM AMBULATORY - MEDICINE [place] [facility] [place] [facility] May 21, 2024 09:00 AM AMBULATORY - MEDICINE [facility] [place] [facility] Jun 26, 2024 02:30 PM AMBULATORY - MEDICINE [facility] [place] [facility] Jun 26, 2024 03:00 PM AMBULATORY - MEDICINE [facility] [place] [facility] Jun 26, 2024 03:15 PM AMBULATORY - MEDICINE [facility] [place] [facility] Jul 03, 2024 04:00 PM [facility] Sep 04, 2024 04:00 PM [facility] Sep 11, 2024 01:00 PM [facility]ORY - [place]ICINE [place] [place] Active, Pending, and Scheduled Orders This section includes a listing of several types of active, pending, and scheduled orders, including clinic medications orders, diagnostic test orders, procedure orders and consult orders; where the start date of the order is 45 days before the date of the Encounter or 45 days after the date of theEncounter. The data comes from all [place] treatment facilities. Test Date/Time Test Type Test Details Facility Name Mar 22, 2024 12:13 PM Consult Order COMMUNITY CARE-MRI Cons Television [facility] Lab Results: +/- 30 days of the encounter This section includes the Chemistry and Hematology Lab Results on record with NH for the patient. Radiology Reports and Pathology Reports are provided separately, in subsequent sections. Lab Results This section contains the Chemistry/Hematology Results that were resulted 30 days before or 30 daysafter the date of the Encounter. Date/Time Source Result Type Result - Unit Interpretation Reference Range Comment Mar 22, 2024 11:37 AM [facility] THYROID T4 FREE(FT4) (WROX) Specimen Ty pe: SERUM No comment entered. Ordering Provider: WANYE WHEATLEY Report Released Date/Time: Mar 22, 2024 10:50 AM Reporting Lab: [facility] [address] [facility] [address] Performing Lab: [facility] [address] [facility] [address] THYROID T4 FREE(FT4) (WROX) 0.99 ng/dL 0.6-1.6 Mar 22, 2024 11:37 AM [facility] THYROID TOTAL T3 Specimen Type: SERUM No comment entered. Ordering Provider: WAYNE WHEATLEY Report Released Date/Time: Mar 22, 2024 10:50 AM Reporting Lab: [facility] [address] [facility] [address] Performing Lab: [facility] [address] [facility] [address] THYROID TOTAL T3 102.12 ng/dL 35-193 Mar 22, 2024 11:37 AM [facility] TSH Specimen Type: SERUM No comment entered. Ordering Provider: WAYNE WHEATLEY Report Released Date/Time: Mar 22, 2024 10:50 AM Reporting Lab: [facility] [address] [facility] [address] Performing Lab: [facility] [address] [facility] [address] TSH 6.24 u[IU]/mL H 0.35-5.00 Mar 22, 2024 11:37 AM [facility] CBC AND DIFF (AUTO) Specimen Type: BLOOD No comment entered. Ordering Provider: WAYNE WHEATLEY Report Released Date/Time: Mar 22, 2024 10:50 AM Reporting Lab: [facility] [address] [facility] [address] Performing Lab: [facility] [address] [facility] [address] WBC 6.41 10*3/uL 4.50-11.00 RBC 4.43 10*6/uL 4.23-5.66 HGB 10.3 g/dL L 12.8-17 HCT 32.5 L 39.2-50.4 MCV 73.4 fL L 82-99 MCHC 31.7 g/dL 30.8-35.1 PLT 284 10*3/uL 140-360 RDW-CV 14.5 12.0-16.0 MONO, ABS 0.58 10*3/uL 0.30-1.10 MCH 23.3 pg L 26.2-32.6 NEUT % 62.3 43.7-75.8 LYMPH % 19.3 14.0-42.3 MONO % 9.0 5.1-13.7 EOS % 8.0 H 0.4-6.8 BASO % 0.9 0.1-2.0 NEUT, ABS 3.99 10*3/uL 2.20-7.60 LYMPH, ABS 1.24 10*3/uL 1.00-3.20 EOS, ABS 0.51 10*3/uL H 0.03-0.44 BASO, ABS 0.06 10*3/uL 0.01-0.13 IMMATURE GRAN % 0.5 0.0-0.7 IMMATURE GRAN, ABS 0.03 10*3/uL 0.00-0.06 NRBC % 0.0 0.0-0.0 NRBC, ABS 0.00 10*3/uL 0.00-0.00 Social History: Smoking Status (Most current) and Tobacco Use (All prior to encounter date) This section includes the most current, and the historical, smoking and tobacco- related health factors from the NH facility where the Encounter took place. Current Smoking Status This section includes the most current smoking, or tobacco-related health factor, from the [place] facility where the Encounter took place. Date/Time Current Smoking Status Comment Facil ity Mar 26, 2021 02:25 PM VA-TOBACCO NEVER USED [facility] Advance Directives: All historical and current [...] Nov 04, 2016 ADVANCE DIRECTIVE [facility] Encounter Notes: All associated encounter notes This section contains the clinical notes associated to the Encounter. Date/Time Encounter Note(s) Provider Source Mar 19, 2024 05:16 PM ADMINISTRATIVE NOT E: LOCAL TITLE: ADMINISTRATIVE NOTE STANDARD TITLE: ADMINISTRATIVE NOTE DATE OF NOTE: MAR 19, 2024@17:16 ENTRY DATE: MAR 19, 2024@17:16:48 AUTHOR: HAYDE ASHLEY EXP COSIGNER: URGENCY: STATUS: COMPLETED ADMINISTRATIVE NOTE Has ADDENDA [facility] appt [facility] on 04/11/24 at 1:00 office visit with Garima Kelly; current auth expires on 2024-03-17. Refer to PCP/PACT to submit a new [facility] consult for: 04/11/24 at 1:00 office visit with Asher Chaney. /jose cruz/ HAYDE ASHLEY MACHINE HELPER Signed: 03/19/2024 17:18 Receipt Acknowledged By: 03/20/2024 10:41 /jose cruz/ WAYNE WHEATLEY NP NURSE PRACTITIONER 03/20/2024 10:38 /jose cruz/ BONNIE WILLIS RN REGISTERED NURSE 03/20/2024 ADDENDUM STATUS: COMPLETED Consult placed and awaiting PCP's signature. /jose cruz/ BONNIE WILLIS RN REGISTERED NURSE Signed: 03/20/2024 10:38 HAYDE ASHLEY [facility]
--- OUTSIDE RECORDS SUMMARY | 2024-07-26 16:58 | XMS_ITS | Encounter Summary ---
Author Name [facility] [place] [facility] [place] [facility] [place] Address [address] [place] [address] Care Team Providers Care Public Speaker Name Role Phone WAYNE WHEATLEY Primary Care [...] Name Patient's Relationship to Policy [facility]) MEDICARE ADVANTAGE [facility] ([facility] Aug 25, 2001 [facility] ([facility]) [id number] DOMADRIANA SALINAS JOHN PATIENT MEDICARE ([facility]) MEDICARE (M) PART A Oct 23, 2016 PART A [id number] QUE GELLER PATIENT MEDICARE ([facility]) MEDICARE (M) PART B Oct 23, 2016 PART B [id number] 4 QUE GELLER PATIENT MEDICARE ([facility]) MEDICARE (M) PART B Jul 25, 2011 PART B [id number] 97A QUE GELLER PATIENT MEDICARE ([facility]) MEDICARE (M) PART B Jul 25, 2011 PART B [id number] 97A QUE GELLER PATIENT MEDICARE (WNR) MEDICARE (M) PART B Jul 25, 2011 PART B [id number] QUE GELLER PATIENT MEDICARE (WNR) MEDICARE (M) PART A Apr 24, 2004 PART A [id number] 97A QUE GELLER PATIENT MEDICARE (WNR) MEDICARE (M) PART A Apr 24, 2004 PART A [id number] 97A QUE GELLER PATIENT MEDICARE (WNR) MEDICARE (M) PART A Apr 24, 2004 PART A [id number] QUE GELLER PATIENT Selected Encounter This section includes the information on record at [place] for the Encounter. Date/Time Encounter Type Encounter Description Reason Pro vider Source Feb 28, 2024 03:58 PM Outpatient Encounter ADMIN PAT ACTIVTIES (MASNONCT) [...] PM AMBULATORY - MEDICINE [facility] [place] [facility] Apr 24, 2024 01:00 PM AMBULATORY - MEDICINE [place] [place] Apr 25, 2024 04:00 PM AMBULATORY - NONE [facility] [place] [facility] Apr 26, 2024 08:50 AM AMBULATORY - MEDICINE [facility] [place] [facility] May 14, 2024 03:00 PM AMBULATORY - MEDICINE [facility] [place] [facility] May 14, 2024 03:30 PM AMBULATORY - MEDICINE [facility] [place] [facility] May 21, 2024 09:00 AM AMBULATORY - MEDICINE [facility] [place] [facility] Jun 26, 2024 02:30 PM AMBULATORY - MEDICINE [facility] [place] [facility] Jun 26, 2024 03:00 PM AMBULATORY - MEDICINE [facility] [place] [facility] Jun 26, 2024 03:15 PM AMBULATORY - MEDICINE [facility] [place] [facility] Jul 03, 2024 04:00 PM [facility]ULATORY - MEDICINE [facility] Active, Pending, and Scheduled Orders This section includes a listing of several types of active, pending, and scheduled orders, including clinic medications orders, diagnostic test orders, procedure orders and consult orders; where the start date of the order is 45 days before the date of the Encounter or 45 days after the date of theEncounter. The data comes from all [place] treatment facilities. Test Date/Time Test Type Test Details Facility Name Mar 22, 2024 12:13 PM Consult Order COMMUNITY CARE-MRI Cons Sheet [facility] [place] Lab Results: +/- 30 days of the [...] Range Comment Mar 22, 2024 11:37 AM [place] THYROID TOTAL T3 Specimen Type: SERUM No comment entered. Ordering Provider: WAYNE WHEATLEY Report Released Date/Time: Mar 22, 2024 10:50 AM Reporting [facility] [address] [address] Performing Lab: [facility] [address] [facility] [address] THYROID TOTAL T3 102.12 ng/dL 35-193 Mar 22, 2024 11:37 AM [place] THYROID T4 FREE(FT4) (WROX) Specimen Ty pe: SERUM No comment entered. Ordering Provider: WAYNE WHEATLEY Report Released Date/Time: Mar 22, 2024 10:50 AM Reporting Lab: [facility] [address] [address] Performing Lab: [facility] [address] [facility] [address] THYROID T4 FREE(FT4) (WROX) 0.99 ng/dL 0.6-1.6 Mar 22, 2024 11:37 AM [place] TSH Specimen Type: SERUM No comment entered. Ordering Provider: WAYNE WHEATLEY Report Released Date/Time: Mar 22, 2024 10:50 AM Reporting Lab: [facility] [address] [facility] [address] Performing Lab: [facility] [address] [facility] [address] TSH 6.24 u[IU]/mL H 0.35-5.00 Mar 22, 2024 11:37 AM [place] CBC AND DIFF (AUTO) Specimen Type: BLOOD No comment entered. Ordering Provider: WAYNE WHEATLEY Report Released Date/Time: Mar 22, 2024 10:50 AM Reporting Lab: [facility] [address] [facility] [address] Performing Lab: [facility] [address] [facility] [address] WBC 6.41 10*3/uL 4.50-11.00 RBC 4.43 10*6/uL [...] 0.0 0.0-0.0 NRBC, ABS 0.00 10*3/uL 0.00-0.00 Feb 13, 2024 02:01 PM [place] TSH Specimen Type: SERUM No comment entered. Ordering Provider: BHAVANI BYRD Report Released Date/Time: December 12, 2023 09:14 PM Reporting Lab: [facility] [address] [facility] [address] Performing Lab: [facility] [address] [facility] [address] TSH 6.71 u[IU]/mL H 0.35-5.00 Social History: [...] 26, 2021 02:25 PM VA-TOBACCO NEVER USED [facility] Advance Directives: All historical and current Section Date Range: From patient's date of to the date document was created. This section includes ALL of a patient's completed or amended [place] Advance and Rescinded Directives. The entries below indicate that a directive exists for the patient, but an actual copy is not included with this document. The data comes from all [place] facilities. Date Advance Directives Provider Source Nov 04, 2016 ADVANCE DIRECTIVE RONY URRUTIA [facility] Encounter Notes: All associated encounter notes This section contains the clinical notes associated to the Encounter. Date/Time Encounter Note(s) Provider Source Feb 28, 2024 03:58 PM ADMINISTRATIVE NOT E: LOCAL TITLE: CCC: SCHEDULING ADMINISTRATION STANDARD TITLE: ADMINISTRATIVE NOTE DATE OF NOTE: FEB 28, 2024@15:58:12 ENTRY DATE: FEB 28, 2024@15:58:12 AUTHOR: LOLLY STOKES EXP COSIGNER: URGENCY: STATUS: COMPLETED CCC: SCHEDULING ADMINISTRATION Has ADDENDA Patient Demographics Patient Name: KAM GELLER Patient Primary Phone: [phone] Patient Primary Address: [address] [place] [id number] Patient : 1950 Patient Age: 73 Caller/Recipient Relation to Patient: Self Administrative Administrative Note Reason: Other Administrative Note Comments: [place] would like to have a CITC consult placed to see a pain clinic at [facility] pain clinic, please assist. /es/ LOLLY FORD 1 [facility] AMS[facility] Signed: 02/28/2024 15:58 Receipt Acknowledged By: 03/05/2024 13:42 /es/ OLI AUSTNI LPN LICENSED PRACTICAL NURSE 02/28/2024 16:03 /es/ ТАТЬЯНА [employer]PPER [employer] TRAVEL COUNSELOR 02/29/2024 10:05 /es/ BONNIE WILLIS RN REGISTERED NURSE 02/29/2024 ADDENDUM STATUS: COMPLETED Consult placed and awaiting PCP's signature. /jose cruz/ BONNIE WILLIS RN REGISTERED NURSE Signed: 02/29/2024 10:05 LOLLY STOKES [facility]
--- OUTSIDE RECORDS SUMMARY | 2024-07-26 16:58 | XMS_ITS | Encounter Summary ---
Author Name [facility] [place]) Organization [facility] [place] Address [address] [place] [id number] Care Team Providers Care Teaching Pastor Name Role Phone WAYNE WHEATLEY Primary Care [...] Name Patient's Relationship to Policy [facility]) MEDICARE ADVANTAGE [facility] ([facility]) Aug 25, 2001 [facility] ([facility]) [id number] DOMADRIANA SALINAS JOHN PATIENT MEDICARE ([facility]) MEDICARE (M) PART A Oct 23, 2016 PART A [id number] QUE GELLER PATIENT MEDICARE ([facility]) MEDICARE (M) PART B Oct 23, 2016 PART B [id number] [place] GE[place] PATIENT MEDICARE (WN) MEDICARE (M) PART B Jul 25, 2011 PART B [id number] [place] GELLER PATIENT MEDICARE ([facility]) MEDICARE (M) PART B Jul 25, 2011 PART B [id number] QUE GELLER PATIENT MEDICARE (WNR) MEDICARE (M) PART B Jul 25, 2011 PART B [id number] [place] GE[place] PATIENT MEDICARE (WNR) MEDICARE (M) PART A Apr 24, 2004 PART A [id number] [place] GE[place] PATIENT MEDICARE (WNR) MEDICARE (M) PART A Apr 24, 2004 PART A [id number] [phone] [place] GELLER PATIENT MEDICARE (WNR) MEDICARE (M) PART A Apr 24, 2004 PART A [id number] [phone] QUE GELLER PATIENT Selected Encounter This section includes the information on record at OR for the Encounter. Date/Time Encounter Type Encounter Description Reason Pro vider Source Feb 13, 2024 11:48 AM Outpatient Encounter PRIMARY CARE/MEDICINE IHE Encounter Template Text not used by OR Plan of Treatment: Future Appointments (+ 6 months) and Future Tests (+/- 45 days) The Plan of Treatment section includes future care activities for the patient from all OR treatmentfacilities. This section includes future appointments and future orders which are active, pending or scheduled. Future Appointments This section includes appointments that were scheduled to occur 6 months from the date of the Encounter, up to a maximum of 20 appointments. The data comes from all OR treatment facilities. Appointment Date/Time Appointment Type Appointme nt Facility Name Mar 22, 2024 11:00 AM AMBULATORY - [facility]ICINE [facility] [place] Apr 11, 2024 01:00 PM AMBULATORY - MEDICINE [place] [facility] [place] [facility] Apr 24, 2024 01:00 PM [facility]ORY - MEDICINE [facility] [place] Apr 25, 2024 04:00 PM AMBULATORY - NONE [facility] [place] [facility] Apr 26, 2024 08:50 AM AMBULATORY - MEDICINE [place] [facility] [place] [facility] May 14, 2024 03:00 PM AMBULATORY - MEDICINE [place] [facility] [place] [facility] May 14, 2024 03:30 PM AMBULATORY - MEDICINE [place] [facility] [place] [facility] May 21, 2024 09:00 AM AMBULATORY - MEDICINE [place] [facility] [place] [facility] Jun 26, 2024 02:30 PM AMBULATORY - MEDICINE [facility] [place] [facility] Jun 26, 2024 03:00 PM AMBULATORY - MEDICINE [facility] [place] [facility] Jun 26, 2024 03:15 PM AM[facility]ULATORY - MEDICINE [facility] [place] [facility] Jul 03, 2024 04:00 PM AMBULATORY - MEDICINE [facility] Active, Pending, and Scheduled Orders This section includes a listing of several types of active, pending, and scheduled orders, including clinic medications orders, diagnostic test orders, procedure orders and consult orders; where the start date of the order is 45 days before the date of the Encounter or 45 days after the date of theEncounter. The data comes from all [place] treatment facilities. Test Date/Time Test Type Test Details Facility Name Mar 22, 2024 12:13 PM Consult Order [facility] Cons Gasket Supervisor's Choice [facility] Lab Results: +/- 30 days of the encounter This section includes the Chemistry and Hematology Lab Results on record with OR for the patient. Radiology Reports and Pathology Reports are provided separately, in subsequent sections. Lab Results This section contains the Chemistry/Hematology Results that were resulted 30 days before or 30 daysafter the date of the Encounter. Date/Time Source Result Type Result - Unit Interpretation Reference Range Comment Feb 13, 2024 02:01 PM [facility] TSH Specimen Type: SERUM No comment entered. Ordering Provider: BHAVANI BYRD Report Released Date/Time: December 12, 2023 09:14 PM Reporting [facility] [address] [address] Performing Lab: [facility] [address] [address] TSH 6.71 u[IU]/mL H 0.35-5.00 Social History: Smoking Status (Most current) and Tobacco Use (All prior to encounter date) This section includes the most current, and the historical, smoking and tobacco- related health factors from the OR facility where the Encounter took place. Current Smoking Status This section includes the most current smoking, or tobacco-related health factor, from the OR facility where the Encounter took place. Date/Time Current Smoking Status Comment Catie thompson Mar 26, 2021 02:25 PM VA-TOBACCO NEVER USED [facility] Advance Directives: All historical and current Section Date Range: From patient's date of to the date document was created. This section includes ALL of a patient's completed or amended OR Advance and Rescinded Directives. The entries below indicate that a directive exists for the patient, but an actual copy is not included with this document. The data comes from all OR facilities. Date Advance Directives Provider Source Nov 04, 2016 ADVANCE DIRECTIVE RONY URRUTIA OR [facility] Encounter Notes: All associated encounter notes This section contains the clinical notes associated to the Encounter. Date/Time Encounter Note(s) Provider Source Feb 20, 2024 06:20 AM ADDENDUM: LOCAL TITLE: Addendum STANDARD TITLE: ADDENDUM DATE OF NOTE: FEB 20, 2024@06:20:42 ENTRY DATE: FEB 20, 2024@06:20:43 AUTHOR: WAYNE WHEATLEY EXP COSIGNER: URGENCY: STATUS: COMPLETED Please offer sick call for evaluation of back pain. MSA, please contact the office of Dr. Dodd and request GI office visit note including any studies that were conducted. Thank you. /jose cruz/ WAYNE WHEATLEY NP NURSE PRACTITIONER Signed: 02/20/2024 06:21 Receipt Acknowledged By: 02/21/2024 11:50 /jose cruz/ OLI AUSTIN LPN LICENSED PRACTICAL NURSE 02/20/2024 13:13 /jose cruz/ ТАТЬЯНА PEPPER ADVANCE PANTRY GOODS MAKER --- Original Document --- 02/13/24 ADMINISTRATIVE NOTE: ANIRUDH spoke with the . He has a scheduled follow up with new provider for 03/22/24. He is requesting another MRI. Last one done 07/2021. back pain is getting worse. It is debilitating. He can hardly move. Also stating he went to GI doctor (Dr. Dodd) about 1 month ago. He states he had 4 tests, and would like the results. Please Advise /jose cruz/ RYLEE SPAULDING ANIRUDH Signed: 02/13/2024 11:53 Receipt Acknowledged By: 02/17/2024 13:46 /jose cruz/ OLI AUSTIN LPN LICENSED PRACTICAL NURSE 02/17/2024 15:02 /es/ BONNIE WILLIS RN REGISTERED NURSE 02/17/2024 ADDENDUM STATUS: COMPLETED This television script writer attempted to reach the 3x w/o success. PCP please advise. /jose cruz/ OLI AUSTIN LPN LICENSED PRACTICAL NURSE Signed: 02/17/2024 13:54 Receipt Acknowledged By: 02/20/2024 06:20 /jose cruz/ WAYNE WHEATLEY NP NURSE PRACTITIONER 02/20/2024 ADDENDUM STATUS: COMPLETED THIS X RAY OPERATOR SENT FOR RECORDS FROM [facility] [phone] /jose cruz/ ТАТЬЯНА PEPPER ADVANCE PANTRY GOODS MAKER Signed: 02/20/2024 13:12 WAYNE WHEATLEY Feb 17, 2024 01:48 PM ADDENDUM: LOCAL TITLE: Addendum STANDARD TITLE: ADDENDUM DATE OF NOTE: FEB 17, 2024@13:48:14 ENTRY DATE: FEB 17, 2024@13:48:15 AUTHOR: OLI AUSTIN COSIGNER: URGENCY: STATUS: COMPLETED This television script writer attempted to reach the 3x w/o success. PCP please advise. /jose cruz/ OLI AUSTIN LPN LICENSED PRACTICAL NURSE Signed: 02/17/2024 13:54 Receipt Acknowledged By: 02/20/2024 06:20 /jose cruz/ WAYNE WHEATLEY NP NURSE PRACTITIONER --- Original Document --- 02/13/24 ADMINISTRATIVE NOTE: ANIRUDH spoke with the . He has a scheduled follow up with new provider for 03/22/24. He is requesting another MRI. Last one done 07/2021. back pain is getting worse. It is debilitating. He can hardly move. Also stating he went to GI doctor (Dr. Dodd) about 1 month ago. He states he had 4 tests, and would like the results. Please Advise /jose cruz/ RYLEE OLEARY Signed: 02/13/2024 11:53 Receipt Acknowledged By: 02/17/2024 13:46 /jose cruz/ OLI AUSTIN LPN LICENSED PRACTICAL NURSE 02/17/2024 15:02 /jose cruz/ BONNIE WILLIS RN REGISTERED NURSE OLI AUSTIN [facility] Feb 13, 2024 11:48 AM ADMINISTRATIVE NOT E: LOCAL TITLE: ADMINISTRATIVE NOTE STANDARD TITLE: ADMINISTRATIVE NOTE DATE OF NOTE: FEB 13, 2024@11:48 ENTRY DATE: FEB 13, 2024@11:48:28 AUTHOR: RYLEE SPAULDING COSIGNER: URGENCY: STATUS: COMPLETED ADMINISTRATIVE NOTE Has ADDENDA ANIRUDH spoke with the [facility]. He has a scheduled follow up with new provider for 03/22/24. He is requesting another MRI. Last one done 07/2021. back pain is getting worse. It is debilitating. He can hardly move. Also stating he went to GI doctor (Dr. Dodd) about 1 month ago. He states he had 4 tests, and would like the results. Please Advise /jose cruz/ RYLEE OLEARY Signed: 02/13/2024 11:53 Receipt Acknowledged By: 02/17/2024 13:46 /jose cruz/ OLI AUSTIN LPN LICENSED PRACTICAL NURSE 02/17/2024 15:02 /jose cruz/ BONNEI WILLIS RN REGISTERED NURSE 02/17/2024 ADDENDUM STATUS: COMPLETED This television script writer attempted to reach the 3x w/o success. PCP please advise. /shantel AUSTIN LPN LICENSED PRACTICAL NURSE Signed: 02/17/2024 13:54 Receipt Acknowledged By: 02/20/2024 06:20 /jose cruz/ WAYNE WHEATLEY NP NURSE PRACTITIONER 02/20/2024 ADDENDUM STATUS: COMPLETED Please offer sick call for evaluation of back pain. MSA, please contact the office of Dr. Dodd and request GI office visit note including any studies that were conducted. Thank you. /es/ WAYNE WHETALEY NP NURSE PRACTITIONER Signed: 02/20/2024 06:21 Receipt Acknowledged By: * AWAITING SIGNATURE * OLI AUSTIN 02/20/2024 13:13 /es/ ТАТЬЯНА PEPPER ADVANCE PANTRY GOODS MAKER 02/20/2024 ADDENDUM STATUS: COMPLETED THIS X RAY OPERATOR SENT FOR RECORDS FROM [facility] [phone] /jose cruz/ ТАТЬЯНА PEPPER ADVANCE PANTRY GOODS MAKER Signed: 02/20/2024 13:12 RYLEE SPAULDING
--- OUTSIDE RECORDS SUMMARY | 2024-07-26 16:58 | XMS_ITS | Encounter Summary ---
Author Name [facility] [place] Organization [facility] [place] Address [address] [place] [address] Care Team Providers Care Soda Column Operator Name Role Phone WAYNE WHEATLEY Primary [...] Name Patient's Relationship to Policy [facility]) MEDICARE ADVANTAGE [facility] ([facility]) Aug 25, 2001 [facility] ([facility]) [id number] ADRIANA GELLER PATIENT MEDICARE ([facility]) MEDICARE () PART A Oct 23, 2016 PART A [id number] [place] PATIENT MEDICARE ([facility]) MEDICARE () PART B Oct 23, 2016 PART B [id number] [place] PATIENT MEDICARE ([facility]) MEDICARE () PART B Jul 25, 2011 PART B [id number] [place] PATIENT MEDICARE ([facility]) MEDICARE () PART B Jul 25, 2011 PART B [id number] 97A [place] PATIENT MEDICARE (WNR) MEDICARE (M) PART B Jul 25, 2011 PART B [id number] [phone] [id number] [place] GE[place] PATIENT MEDICARE (WNR) MEDICARE (M) PART A Apr 24, 2004 PART A [id number] 97A [place] GE[place] PATIENT MEDICARE (WNR) MEDICARE (M) PART A Apr 24, 2004 PART A [id number] 97A [place] GELLER PATIENT MEDICARE (WNR) MEDICARE (M) PART A Apr 24, 2004 PART A [id number] QUE GELLER PATIENT Selected Encounter This section includes the information on record at [place] for the Encounter. Date/Time Encounter Type Encounter Description Reason Pro vider Source Feb 21, 2024 10:17 AM Outpatient Encounter DENTAL IHE Encounter Template [...] 2024 11:00 AM [facility]ORY - [facility]ICINE [facility] Apr 11, 2024 01:00 PM AMBULATORY - MEDICINE [place] [facility] [place] [facility] Apr 24, 2024 01:00 PM [facility]ORY - MEDICINE [facility] Apr 25, 2024 04:00 PM AMBULATORY - NONE [place] [facility] [place] [facility] Apr 26, 2024 08:50 AM AMBULATORY - MEDICINE [place] [facility] [place] [facility] May 14, 2024 03:00 PM AMBULATORY - MEDICINE [place] [facility] [place] [facility] May 14, 2024 03:30 PM AMBULATORY - MEDICINE [place] [facility] [place] [facility] May 21, 2024 09:00 AM AMBULATORY - MEDICINE [place] [facility] [place] [facility] Jun 26, 2024 02:30 PM AMBULATORY - MEDICINE [facility] [place] [facility] Jun 26, 2024 03:00 PM AMBULATORY - MEDICINE [facility] [place] [facility] Jun 26, 2024 03:15 PM AMBULATORY - MEDICINE [place] [facility] [place] [facility] Jul 03, 2024 04:00 PM AM[facility]ULATORY - [facility]ICINE [facility] Active, Pending, and Scheduled Orders This section [...] 12:13 PM Consult Order [facility] Cons Prison Classification Counselor's Choice [facility] Lab Results: +/- 30 days of the [...] Range Comment Mar 22, 2024 11:37 AM [facility] THYROID T4 FREE(FT4) (WROX) Specimen Ty pe: SERUM No comment entered. Ordering Provider: WAYNE WHEATLEY Report Released Date/Time: Mar 22, 2024 10:50 AM Reporting Lab[facility] [address] [facility] [address] Performing [facility]: [facility] [address] [facility] [address] THYROID T4 FREE(FT4) (WROX) 0.99 ng/dL 0.6-1.6 Mar 22, 2024 11:37 AM [facility] THYROID TOTAL T3 Specimen Type: SERUM No comment entered. Ordering Provider: WAYNE WHEATLEY Report Released Date/Time: Mar 22, 2024 10:50 AM Reporting Lab: [facility] [address] [address] Performing Lab: [facility] [address] [facility] [address] THYROID TOTAL T3 102.12 ng/dL 35-193 Mar 22, 2024 11:37 AM [facility] TSH Specimen Type: SERUM No comment entered. Ordering Provider: WAYNE WHEATLEY Report Released Date/Time: Mar 22, 2024 10:50 AM Reporting Lab: [facility] [address] [facility] [address] Performing Lab: [address] [address] TSH 6.24 u[IU]/mL H 0.35-5.00 Mar 22, 2024 11:37 AM [facility] CBC AND DIFF (AUTO) Specimen Type: BLOOD No comment entered. Ordering Provider: WAYNE WHEATLEY Report Released Date/Time: Mar 22, 2024 10:50 AM Reporting Lab: [facility] [address] [facility] [address] Performing Lab: [address] [address] WBC 6.41 10*3/uL 4.50-11.00 RBC 4.43 10*6/uL [...] 10*3/uL 0.00-0.00 Feb 13, 2024 02:01 PM [facility] TSH Specimen Type: SERUM No comment entered. Ordering Provider: BHAVANI BYRD Report Released Date/Time: December 12, 2023 09:14 PM Reporting Lab: [facility] [address] [facility] [address] Performing Lab: [facility] [address] [facility] [address] TSH 6.71 u[IU]/mL H 0.35-5.00 Social History: [...] 26, 2021 02:25 PM VA-TOBACCO NEVER USED [facility] Advance Directives: All historical and current Section [...] Nov 04, 2016 ADVANCE DIRECTIVE RONY URRUTIA [facility] Encounter Notes: All associated encounter notes This section contains the clinical notes associated to the Encounter. Date/Time Encounter Note(s) Provider Source Feb 21, 2024 10:17 AM DENTISTRY TELEPHON E ENCOUNTER NOTE: LOCAL TITLE: TELEPHONE NOTE/DENTAL STANDARD TITLE: DENTISTRY TELEPHONE ENCOUNTER NOTE DATE OF NOTE: FEB 21, 2024@10:17 ENTRY DATE: FEB 21, 2024@10:17:16 AUTHOR: POP JOSEPH EXP COSIGNER: URGENCY: STATUS: COMPLETED Spoke with pt to confirm dental appointment on 02/22/2024 at 3:45 pm. /jose cruz/ POP JOSEPH ADVANCED DRUG ENFORCEMENT AGENT Signed: 02/21/2024 10:17 POP JOSEPH [facility]
--- OUTSIDE RECORDS SUMMARY | 2024-07-26 16:58 | XMS_ITS | Encounter Summary ---
Author Name [facility] [place] Organization [place] Address [address] [place] [id number] Care Team Providers Care Metal Sorter Name Role Phone WAYNE WHEATLEY Primary Care [...] to Policy [facility]) MEDICARE ADVANTAGE [facility] ([facility]) Aug 25, 2001 [facility] ([facility]) [id number] TIERNEYADRIANA RUSSO PATIENT MEDICARE ([facility]) MEDICARE (M) PART A Oct 23, 2016 PART A [id number] QUE GELLER PATIENT MEDICARE ([facility]) MEDICARE (M) PART B Oct 23, 2016 PART B [id number] [phone] QUE GELLER PATIENT MEDICARE ([facility]) MEDICARE (M) PART B Jul 25, 2011 PART B [id number] QUE GELLER PATIENT MEDICARE ([facility]) MEDICARE (M) PART B Jul 25, 2011 PART B [id number] QUE GELLER PATIENT MEDICARE (WNR) MEDICARE (M) PART B Jul 25, 2011 PART B [id number] [phone] QUE GELLER PATIENT MEDICARE (WNR) MEDICARE (M) PART A Apr 24, 2004 PART A [id number] [phone] QUE GELLER PATIENT MEDICARE (WNR) MEDICARE (M) PART A Apr 24, 2004 PART A [id number] [phone] QUE GELLER PATIENT MEDICARE (WNR) MEDICARE (M) PART A Apr 24, 2004 PART A [id number] QUE GELLER PATIENT Selected Encounter This section includes the information on record at [place] for the Encounter. Date/Time Encounter Type Encounter Description Reason Pro vider Source Feb 07, 2024 06:05 PM Outpatient Encounter PRIMARY CARE/MEDICINE IHE Encounter Template Text not used by [place] Plan of Treatment: Future Appointments (+ 6 [...] 20 appointments. The data comes from all [place] treatment facilities. Appointment Date/Time Appointment Type Appointme nt Facility Name Mar 22, 2024 11:00 AM AMBULATORY - MEDICINE [facility] Apr 11, 2024 01:00 PM AMBULATORY - [place]ICINE [place] [facility] Apr 24, 2024 01:00 PM [facility] Apr 25, 2024 04:00 PM AMBULATORY - NONE [place] [facility] [place] [facility] Apr 26, 2024 08:50 AM AMBULATORY - MEDICINE [place] [facility] May 14, 2024 03:00 PM AMBULATORY - MEDICINE [place] [facility] May 14, 2024 03:30 PM AMBULATORY - MEDICINE [place] [facility] May 21, 2024 09:00 AM AMBULATORY - MEDICINE [place] [facility] Jun 26, 2024 02:30 PM AMBULATORY - MEDICINE [place] [facility] [facility] Jun 26, 2024 03:00 PM AMBULATORY - MEDICINE [facility] [place] [facility] Jun 26, 2024 03:15 PM AMBULATORY - MEDICINE [facility] [place] [facility] Jul 03, 2024 04:00 PM AMBULATORY - MEDICINE [facility] Active, Pending, and Scheduled Orders This section includes a listing of several types of active, pending, and scheduled orders, including clinic medications orders, diagnostic test orders, procedure orders and consult orders; where the start date of the order is 45 days before the date of the Encounter or 45 days after the date of theEncounter. The data comes from all [place] treatment facilities. Test Date/Time Test Type Test Details Facility Name Mar 22, 2024 12:13 PM Consult Order [facility]-MRI Cons Home Performance [facility] Lab Results: +/- 30 days of the encounter This section includes the Chemistry and Hematology Lab Results on record with [place] for the patient. Radiology Reports and Pathology Reports are provided separately, in subsequent sections. Lab Results This section contains the Chemistry/Hematology Results that were resulted 30 days before or 30 daysafter the date of the Encounter. Date/Time Source Result Type Result - Unit Interpretation Reference Range Comment Feb 13, 2024 02:01 PM [facility] TSH Specimen Type: SERUM No comment entered. Ordering Provider: BHAVANI BYRD Report Released Date/Time: December 12, 2023 09:14 PM Reporting [facility] [address] [address] Performing Lab: [place] [facility] [address] [address] TSH 6.71 u[IU]/mL H 0.35-5.00 Social History: [...] 26, 2021 02:25 PM VA-TOBACCO NEVER USED [facility] Advance Directives: All historical and current [...] Nov 04, 2016 ADVANCE DIRECTIVE RONY URRUTIA [place] CNTR L [facility] Encounter Notes: All associated encounter notes This section contains the clinical notes associated to the Encounter. Date/Time Encounter Note(s) Provider Source Feb 08, 2024 03:53 PM ADDENDUM: LOCAL TITLE: Addendum STANDARD TITLE: ADDENDUM DATE OF NOTE: FEB 08, 2024@15:53:07 ENTRY DATE: FEB 08, 2024@15:53:08 AUTHOR: WAYNE WHEATLEY EXP COSIGNER: URGENCY: STATUS: COMPLETED Please schedule for next available 30-minute appointment [id number] for GI symptoms and hypothyroidism. Okay to schedule and sick call with me on a Tuesday morning. Please request office visit notes from [facility]. /jose cruz/ WAYNE WHEATLEY NP NURSE PRACTITIONER Signed: 02/08/2024 15:54 Receipt Acknowledged By: 02/09/2024 14:29 /jose cruz/ ТАТЬЯНА PEPPER ADVANCE BAND SINGER 02/09/2024 13:14 /jose cruz/ AURA VELAZ[employer] EXPERIMENTAL BOX TESTER BAND SINGER --- Original Document --- 02/07/24 ADMINISTRATIVE NOTE: leaving message on [facility] Call Center voicemail wanting to: [xx] Speak to provider (name): PACT 1/Hakan Concern: [] Schedule/ reschedule appointment [] Cancelling an existing appt. [] Other: Clinic: [xx] PACT team/PCP Vet calling in to advise team that he is still having GI issues and that GI meds are not helping. States he 'went for GI testing but they didn't find anything' Contents of message appear to be similar to message left in Triage note dated Jan 30, 2024 Vet [xx] would like [] does not need [] did not specify if they wanted a call back regarding this matter. C/B phone number: [phone] Confirmed as phone contact on file in CPRS: /es/ KEKE ARAUZ PHYSICAL THERAPIST Signed: 02/07/2024 18:12 Receipt Acknowledged By: 02/08/2024 15:49 /jose cruz/ WAYNE WHEATLEY NP NURSE PRACTITIONER * AWAITING SIGNATURE * BONNIE WILLIS 02/08/2024 08:13 /jose cruz/ ТАТЬЯНА PEPPER ADVANCE BAND SINGER 02/09/2024 ADDENDUM STATUS: COMPLETED THIS LOCKMAKER SENT 3rd FAX REQUEST FOR GI NOTES [phone] /jose cruz/ ТАТЬЯНА PEPPER ADVANCE BAND SINGER Signed: 02/09/2024 14:28 WAYNE WHEATLEY Feb 07, 2024 06:05 PM ADMINISTRATIVE NOT E: LOCAL TITLE: ADMINISTRATIVE NOTE STANDARD TITLE: ADMINISTRATIVE NOTE DATE OF NOTE: FEB 07, 2024@18:05 ENTRY DATE: FEB 07, 2024@18:05:33 AUTHOR: MALCOLM PACKER EXP COSIGNER: URGENCY: STATUS: COMPLETED ADMINISTRATIVE NOTE Has ADDENDA leaving message on [facility] Call Center voicemail wanting to: [xx] Speak to provider (name): PACT 1/Hakan Concern: [] Schedule/ reschedule appointment [] Cancelling an existing appt. [] Other: Clinic: [xx] PACT team/PCP Vet calling in to advise team that he is still having GI issues and that GI meds are not helping. States he 'went for GI testing but they didn't find anything' Contents of message appear to be similar to message left in Triage note dated Jan 30, 2024 Vet [xx] would like [] does not need [] did not specify if they wanted a call back regarding this matter. C/B phone number: [phone] Confirmed as phone contact on file in [facility]: /es/ KEKE ARAUZ PHYSICAL THERAPIST Signed: 02/07/2024 18:12 Receipt Acknowledged By: 02/08/2024 15:49 /es/ WAYNE WHEATLEY NP NURSE PRACTITIONER 02/10/2024 10:11 /es/ BONNIE WILLIS RN REGISTERED NURSE 02/08/2024 08:13 /es/ ТАТЬЯНА PEPPER ADVANCE BAND SINGER 02/08/2024 ADDENDUM STATUS: COMPLETED Please schedule for next available 30-minute appointment [id number] for GI symptoms and hypothyroidism. Okay to schedule and sick call with me on a Tuesday morning. Please request office visit notes from [facility]. /jose cruz/ WAYNE WHEATLEY NP NURSE PRACTITIONER Signed: 02/08/2024 15:54 Receipt Acknowledged By: 02/09/2024 14:29 /es/ ТАТЬЯНА PEPPER ADVANCE BAND SINGER 02/09/2024 13:14 /es/ AURA VELAZCO EXPERIMENTAL BOX TESTER BAND SINGER 02/09/2024 ADDENDUM STATUS: COMPLETED THIS LOCKMAKER SENT 3rd FAX REQUEST FOR GI NOTES [phone] /jose cruz/ ТАТЬЯНА PEPPER ADVANCE BAND SINGER Signed: 02/09/2024 14:28 ERICH PACKER
--- OUTSIDE RECORDS SUMMARY | 2024-07-26 16:58 | XMS_ITS | Encounter Summary ---
Author Name [place] Address [address] [place] [id number] Care Team Providers Care Social Science Research Assistant Name Role Phone WAYNE MCCLENDON Primary Care Provider Unavailabl e Insurance Providers: [...] Relationship to Policy [facility] MEDICARE ADVANTAGE [facility] ([facility]) Aug 25, 2001 [facility] ([facility]) [id number] TIERNEYADRIANA RUSSO PATIENT MEDICARE ([facility]) MEDICARE (M) PART A Oct 23, 2016 PART A [id number] QUE GELLER PATIENT MEDICARE ([facility]) MEDICARE (M) PART B Oct 23, 2016 PART B [id number] QUE GELLER PATIENT MEDICARE ([facility]) MEDICARE (M) PART B Jul 25, 2011 PART B [id number] QUE GELLER PATIENT MEDICARE ([facility]) MEDICARE (M) PART B Jul 25, 2011 PART B [id number] QUE GELLER PATIENT MEDICARE (WNR) MEDICARE (M) PART B Jul 25, 2011 PART B [id number] QUE GELLER PATIENT MEDICARE (WNR) MEDICARE (M) PART A Apr 24, 2004 PART A [id number] [place] GE[place] PATIENT MEDICARE (WNR) MEDICARE (M) PART A Apr 24, 2004 PART A [id number] QUE GELLER PATIENT MEDICARE (WNR) MEDICARE (M) PART A Apr 24, 2004 PART A [id number] QUE GELLER PATIENT Selected Encounter This section includes the information on record at [place] for the Encounter. Date/Time Encounter Type Encounter Description Reason Pro vider Source Mar 22, 2024 12:43 PM Outpatient Encounter PRIMARY CARE/MEDICINE IHE Encounter Template Text not used by [place] Plan of Treatment: Future Appointments (+ 6 months) and Future Tests (+/- 45 days) The Plan of Treatment section includes future care activities for the patient from all [place] treatmentfacilities. This section includes future appointments and future orders which are active, pending or scheduled. Future Appointments This section includes appointments that were scheduled to occur 6 months from the date of the Encounter, up to a maximum of 20 appointments. The data comes from all [place] treatment facilities. Appointment Date/Time Appointment Type Appointme nt Facility Name Apr 11, 2024 01:00 PM AMBULATORY - [place]ICINE [place] [facility] Apr 24, 2024 01:00 PM AM[facility]ORY - [facility]IC[facility] Apr 25, 2024 04:00 PM AMBULATORY - NONE [place] [place] [facility] Apr 26, 2024 08:50 AM AMBULATORY - MEDICINE [place] [facility] May 14, 2024 03:00 PM AMBULATORY - MEDICINE [place] [facility] May 14, 2024 03:30 PM AMBULATORY - MEDICINE [place] [facility] May 21, 2024 09:00 AM AMBULATORY - MEDICINE [place] [facility] Jun 26, 2024 02:30 PM AMBULATORY - MEDICINE [place] [facility] Jun 26, 2024 03:00 PM AMBULATORY - MEDICINE [place] [facility] Jun 26, 2024 03:15 PM AMBULATORY - MEDICINE [place] [place] [facility] Jul 03, 2024 04:00 PM AMBULATORY - MEDICINE [facility] Sep 04, 2024 04:00 PM AM[facility]ULATORY - [facility]ICINE [facility] Sep 11, 2024 01:00 PM AMBULATORY - [...] of theEncounter. The data comes from all [place] treatment facilities. Test Date/Time Test Type Test Details Facility Name Mar 22, 2024 12:13 PM Consult Order [facility] Cons [facility] [place] Lab Results: +/- 30 days of the encounter This section includes the Chemistry and Hematology Lab Results on record with [place] for the patient. Radiology Reports and Pathology Reports are provided separately, in subsequent sections. Lab Results This section contains the Chemistry/Hematology Results that were resulted 30 days before or 30 daysafter the date of the Encounter. Date/Time Source Result Type Result - Unit Interpretation Reference Range Comment Mar 22, 2024 11:37 AM [place] THYROID T4 FREE(FT4) (WROX) Specimen Ty pe: SERUM No comment entered. Ordering Provider: WAYNE MCCLENDON Report Released Date/Time: Mar 22, 2024 10:50 AM Reporting Lab: [facility] [address] [facility] [address] Performing Lab: [facility] [address] [facility] [address] THYROID T4 FREE(FT4) (WROX) 0.99 ng/dL 0.6-1.6 Mar 22, 2024 11:37 AM [place] THYROID TOTAL T3 Specimen Type: SERUM No comment entered. Ordering Provider: WAYNE MCCLENDON Report Released Date/Time: Mar 22, 2024 10:50 AM Reporting Lab: [facility] [address] [facility] [address] Performing Lab: [facility] [address] [facility] [facility] [address] THYROID TOTAL T3 102.12 ng/dL 35-193 Mar 22, 2024 11:37 AM [place] TSH Specimen Type: SERUM No comment entered. Ordering Provider: WAYNE MCCLENDON Report Released Date/Time: Mar 22, 2024 10:50 AM Reporting Lab: [facility] [address] [facility] [address] Performing Lab: [facility] [address] [facility] [address] TSH 6.24 u[IU]/mL H 0.35-5.00 Mar 22, 2024 11:37 AM [place] CBC AND DIFF (AUTO) Specimen Type: BLOOD No comment entered. Ordering Provider: WAYNE MCCLENDON Report Released Date/Time: Mar 22, 2024 10:50 AM Reporting Lab: [facility] [address] [facility] [address] Performing Lab: [facility] [address] [facility] [address] WBC 6.41 10*3/uL 4.50-11.00 RBC 4.43 10*6/uL [...] and tobacco- related health factors from the [place] facility where the Encounter took place. Current Smoking Status This section includes the most current smoking, or tobacco-related health factor, from the [place] facility where the Encounter took place. Date/Time Current Smoking Status Comment Catie ity Mar 22, 2024 12:43 PM VA-TOBACCO NEVER USED [facility] Tobacco Use History This section includes a history of the smoking, or tobacco-related health factors, that were collected on or before the date of the Encounter. The data comes from the [place] facility where the Encounter took place. Date/Time Smoking Status/Tobacco Use Comment F acility Mar 26, 2021 02:25 PM VA-TOBACCO NEVER USED [facility] Advance Directives: All historical and current Section Date Range: From patient's date of to the date document was created. This section includes ALL of a patient's completed or amended [place] Advance and Rescinded Directives. The entries below indicate that a directive exists for the patient, but an actual copy is not included with this document. The data comes from all [place] facilities. Date Advance Directives Provider Source Nov 04, 2016 ADVANCE DIRECTIVE RONY URRUTIA [facility] Encounter Notes: All associated encounter notes This section contains the clinical notes associated to the Encounter. Date/Time Encounter Note(s) Provider Source Mar 22, 2024 12:43 PM PREVENTIVE MEDICIN E NURSING NOTE: LOCAL TITLE: CLINICAL REMINDERS/NURSING STANDARD TITLE: PREVENTIVE MEDICINE NURSING NOTE DATE OF NOTE: MAR 22, 2024@12:43 ENTRY DATE: MAR 22, 2024@12:44 AUTHOR: GLAINDO MCCRACKEN COSIGNER: URGENCY: STATUS: COMPLETED Advance Directive Screen MH AD: Patient has an Advance Directive on file at this [facility]. No updates are needed at this time. The patient received education about Advance Directives and written notification of his/her rights. Suicide Screen: C-SSRS Screening [place] Suicide Severity Rating Scale (C-SSRS) screener 1. Over the past month, have you wished you were or wished you could go to sleep and not wake up? No 2. Over the past month, have you had any actual thoughts of killing yourself? No 3. Over the past month, have you been thinking about how you might do this? Response not required due to responses to other questions. 4. Over the past month, have you had these thoughts and had some intention of acting on them? Response not required due to responses to other questions. 5. Over the past month, have you started to work out or worked out the details of how to kill yourself? Response not required due to responses to other questions. 6. If yes, at any time in the past month did you intend to carry out this plan? Response not required due to responses to other questions. 7. In your lifetime, have you ever done anything, started to do anything, or prepared to do anything to end your life (for example, collected pills, obtained a gun, gave away valuables, went to the roof but didn't jump)? No 8. If YES, was this within the past 3 months? Response not required due to responses to other questions. 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 Printed information was offered and provided if desired. No questions at this time /caregiver was informed of local points of contact. Contact information for local resources: Benefits/Claim for Disability Compensation Questions:[facility] [facility] Enrollment: [facility] Eligibility direct dialed at [phone] Registry: [facility] Coordinator ext [phone] Toxic Exposure Screening Follow-Up reminder is needed. Name of person notified: Wayne Mcclendon NP Tobacco Use Screening: The patient has never used tobacco. Alcohol Use Screen (AUDIT-C): Alcohol Screen: SCREEN FOR ALCOHOL (AUDIT-C) An alcohol screening test (AUDIT-C) was negative (score=0). 1. How often did you have a drink containing alcohol in the past year? Consider a drink to be a 12 ounce can or bottle of regular beer, 8 ounces of malt liquor, a 5 ounce glass of table wine, or a 1.5 ounce shot of liquor (like scotch, gin, or vodka). Never 2. How many drinks containing alcohol did you have on a typical day when you were drinking in the past year? Response not required due to responses to other questions. 3. How often did you have six or more drinks on one occasion in the past year? Response not required due to responses to other questions. COVID-19 Immunization: Additional Information: CDC Interim Clinical Considerations for Use of COVID-19 Vaccines in [facility] COVID-19 Vaccine [employer] PAVE Foot Check: A complete foot check was completed at this encounter. VISUAL INSPECTION: Includes inspection for skin breaks, deformity, erythema, trauma, pallor on elevation, dependent rubor, nail deformities, extensive callus and pitting edema. Visual exam results: Abnormal Observations: Thickened toenails PEDAL PULSES: Includes palpation of dorsalis and posterior tibial pulses and signs/symptoms of vascular compromise like pain, pallor, parasthesia or paralysis. Present (even if diminished) SENSORY CHECK: Includes 10 gram Monofilament (Kingsland-Bre) test of sensation. Intact (Greater than or equal to 80% of sites checked) Abnormal (Less than 80% of sites checked): Abnormal (decreased or absent sensation to monofilament): LOW-RISK: LOW RISK INFORMATION PROVIDED: 1. Advised patient not to walk barefoot. 2. Explained the importance of daily foot checks for changes. 3. Stressed the importance of daily foot hygiene, including bathing and complete drying. The patient verbalized understanding and was offered a detailed handout on diabetic foot care. Eye Care At-Risk Screen : Patient identified to be at risk for the following eye condition(s): MACULAR DEGENERATION: Macular Degeneration Risk Factors Information: Reminder Term: VA-AMD RISK FACTORS Encounter Diagnosis: 04/19/2023@15:00 H35.3132 (ICD-10-CM) Nonexudative age-related macular degeneration, bilateral, intermediate dry stage rank: PRIMARY Prov. Narr. - Non-Exudative ARMD,Bilateral,Intermed Dry Stage GLAUCOMA: Glaucoma Risk Factors Information: Encounter Diagnosis: 04/19/2023@15:00 H40.013 (ICD-10-CM) Open Angle with Borderline Findings, low Risk, Bilateral rank: SECONDARY Prov. Narr. - Glaucoma Suspect,Low Risk,Bilateral Action: Patient has a future eye care appointment scheduled within the next 90 days. Date of Appointment: Per patient he recieves regular eye care and is up to date with appointments. Exact date of next appointment unknown. /jose cruz/ GALINDO MCCRACKEN LPN LPN Signed: 03/22/2024 12:50 GALINDO MCCRACKEN [place]
--- OUTSIDE RECORDS SUMMARY | 2024-07-26 16:58 | XMS_ITS | Encounter Summary ---
Author Name [place] Address [address] [place] [address] Care Team Providers Care Still Operator Whiskey Name Role Phone WAYNE WHEATLEY Primary Care [...] Name Patient's Relationship to Policy [facility]) MEDICARE ADVANTAGE [facility] ([facility]) Aug 25, 2001 [facility] ([facility]) [id number] DUYENADRIANA JOHN PATIENT MEDICARE (WN) MEDICARE (M) PART A Oct 23, 2016 PART A [id number] QUE GELLER PATIENT MEDICARE ([facility]) MEDICARE (M) PART B Oct 23, 2016 PART B [id number] QUE GELLER PATIENT MEDICARE (WN) MEDICARE (M) PART B Jul 25, 2011 PART B [id number] QUE GELLER PATIENT MEDICARE ([facility]) MEDICARE (M) PART B Jul 25, 2011 PART B [id number] QUE GELLER PATIENT MEDICARE (WNR) MEDICARE (M) PART B Jul 25, 2011 PART B [id number] [phone] QUE GELLER PATIENT MEDICARE (WNR) MEDICARE (M) PART A Apr 24, 2004 PART A [id number] 97A QUE GELLER PATIENT MEDICARE (WNR) MEDICARE (M) PART A Apr 24, 2004 PART A [id number] QUE GELLER PATIENT MEDICARE (WNR) MEDICARE (M) PART A Apr 24, 2004 PART A [id number] QUE GELLER PATIENT Selected Encounter This section includes the information on record at [place] for the Encounter. Date/Time Encounter Type Encounter Description Reason Pro vider Source Mar 22, 2024 12:07 PM Outpatient Encounter ADMIN PAT ACTIVTIES (MASNONCT) IHE Encounter Template Text not used by [place] Plan of Treatment: Future Appointments (+ 6 months) and Future Tests (+/- 45 days) The Plan of Treatment section includes future care activities for the patient from all [place] treatmentfacilities. This section includes future appointments and future orders which are active, pending or scheduled. Future Appointments This section includes appointments that were scheduled to occur 6 months from the date of the Encounter, up to a maximum of 20 appointments. The data comes from all [place] treatment facilities. Appointment Date/Time Appointment Type Appointme nt Facility Name Apr 11, 2024 01:00 PM AMBULATORY - MEDICINE [place] [facility] [facility] Apr 24, 2024 01:00 PM [facility] Apr 25, 2024 04:00 PM AMBULATORY - NONE [place] [facility] [place] [facility] Apr 26, 2024 08:50 AM AMBULATORY - MEDICINE [place] [facility] May 14, 2024 03:00 PM AMBULATORY - MEDICINE [place] [facility] May 14, 2024 03:30 PM AMBULATORY - MEDICINE [place] [facility] May 21, 2024 09:00 AM AMBULATORY - MEDICINE [place] [facility] Jun 26, 2024 02:30 PM AMBULATORY - MEDICINE [place] [facility] Jun 26, 2024 03:00 PM AMBULATORY - MEDICINE [place] [facility] Jun 26, 2024 03:15 PM AMBULATORY - MEDICINE [place] [place] [facility] Jul 03, 2024 04:00 PM AMBULATORY - MEDICINE [facility] Sep 04, 2024 04:00 PM AMBULATORY - MEDICINE [facility] Sep 11, 2024 01:00 PM AMBULATORY [...] of theEncounter. The data comes from all [place] treatment facilities. Test Date/Time Test Type Test Details Facility Name Mar 22, 2024 12:13 PM Consult Order COMMUNITY CARE-MRI Cons Crosstie Inspector's Choice [facility] Lab Results: +/- 30 days of the encounter This section includes the Chemistry and Hematology Lab Results on record with [place] for the patient. Radiology Reports and Pathology Reports are provided separately, in subsequent sections. Lab Results This section contains the Chemistry/Hematology Results that were resulted 30 days before or 30 daysafter the date of the Encounter. Date/Time Source Result Type Result - Unit Interpretation Reference Range Comment Mar 22, 2024 11:37 AM [place] THYROID TOTAL T3 Specimen Type: SERUM No comment entered. Ordering Provider: WAYNE WHEATLEY Report Released Date/Time: Mar 22, 2024 10:50 AM Reporting Lab: [facility] [address] [facility] [address] Performing Lab: [facility] [address] [facility] [address] THYROID TOTAL T3 102.12 ng/dL 35-193 Mar 22, 2024 11:37 AM [place] THYROID T4 FREE(FT4) (WROX) Specimen Ty pe: SERUM No comment entered. Ordering Provider: WAYNE WHEATLEY Report Released Date/Time: Mar 22, 2024 10:50 AM Reporting Lab: [facility] [address] [facility] [address] Performing Lab: [facility] [address] [facility] [address] THYROID T4 FREE(FT4) (WROX) 0.99 ng/dL 0.6-1.6 Mar 22, 2024 11:37 AM [place] TSH Specimen Type: SERUM No comment entered. Ordering Provider: WAYNE WHEATLEY Report Released Date/Time: Mar 22, 2024 10:50 AM Reporting Lab: [facility] [address] [facility] [address] Performing Lab: [facility] [address] [facility] [address] TSH 6.24 u[IU]/mL H 0.35-5.00 Mar 22, 2024 11:37 AM [place] CBC AND DIFF (AUTO) Specimen Type: BLOOD No comment entered. Ordering Provider: WAYNE WHEATLEY Report Released Date/Time: Mar 22, 2024 10:50 AM Reporting Lab: [facility] [address] [facility] [address] Performing Lab: [facility] [address] [facility] [address] WBC 6.41 10*3/uL 4.50-11.00 RBC 4.43 10*6/uL [...] and tobacco- related health factors from the [place] facility where the Encounter took place. Current Smoking Status This section includes the most current smoking, or tobacco-related health factor, from the [place] facility where the Encounter took place. Date/Time Current Smoking Status Comment Catie thompson Mar 22, 2024 12:43 PM VA-TOBACCO NEVER USED [facility] Tobacco Use History This section includes a history of the smoking, or tobacco-related health factors, that were collected on or before the date of the Encounter. The data comes from the [place] facility where the Encounter took place. Date/Time Smoking Status/Tobacco Use Comment F acmartina Mar 26, 2021 02:25 PM VA-TOBACCO NEVER USED [facility] Advance Directives: All historical and current Section Date Range: From patient's date of to the date document was created. This section includes ALL of a patient's completed or amended [place] Advance and Rescinded Directives. The entries below indicate that a directive exists for the patient, but an actual copy is not included with this document. The data comes from all [place] facilities. Date Advance Directives Provider Source Nov 04, 2016 ADVANCE DIRECTIVE RONY URRUTIA [facility] Encounter Notes: All associated encounter notes This section contains the clinical notes associated to the Encounter. Date/Time Encounter Note(s) Provider Source Mar 22, 2024 12:07 PM ADMINISTRATIVE NOT E: LOCAL TITLE: CCC: SCHEDULING ADMINISTRATION STANDARD TITLE: ADMINISTRATIVE NOTE DATE OF NOTE: MAR 22, 2024@12:07:13 ENTRY DATE: MAR 22, 2024@12:07:13 AUTHOR: REAGAN AMIN EXP COSIGNER: URGENCY: STATUS: COMPLETED CCC: SCHEDULING ADMINISTRATION Has ADDENDA Patient Demographics Patient Name: KAM GELLER Patient Primary Phone: [phone] Patient Primary Address: [place] [address] Patient : 1950 Patient Age: 73 Call Back Number: Caller/Recipient Relation to Patient: Self Administrative Administrative Note Reason: [facility] [place] Act Administrative Note Comments: The patient just saw the PACT PCP. While he was in, he forgot to mention to the provider that he needed to have a new MRI order placed. He states that the MRI needs to be completed t [facility] and needs to be of his entire back from cervical all the way down through the lumbar. Please call to discuss and process as appropriate. Thank you. IMPORTANT: This note was created by [facility] Clinical Contact Center staff. Please do not alert the staff member by adding them as a signer for future communications. Alerts are not monitored by this user. /jose cruz/ REAGAN AMIN VISN 1 [facility] AMSA Signed: 03/22/2024 12:07 Receipt Acknowledged By: 03/22/2024 12:09 /jose cruz/ WAYNE WHEATLEY NP NURSE PRACTITIONER 03/30/2024 09:00 /jose cruz/ BNONIE WILLIS RN REGISTERED NURSE 03/22/2024 ADDENDUM STATUS: COMPLETED Please advise the L[facility] that MRI has been ordered. Thank you. /jose cruz/ WAYNE WHEATLEY NP NURSE PRACTITIONER Signed: 03/22/2024 12:13 REAGAN AMIN [place] [facility]
--- OUTSIDE RECORDS SUMMARY | 2024-07-26 16:59 | XMS_ITS | Encounter Summary ---
Author Name Department [place] Organization [place] Address [address] [place] [address] Care Team Providers Care Research And Development Researcher Name Role Phone WAYNE WHEATLEY Primary Care [...] Name Patient's Relationship to Policy [facility]) MEDICARE ADVANTAGE [facility] ([facility]) Aug 25, 2001 [facility] ([facility]) [id number] DOMADRIANA SALINAS JOHN PATIENT MEDICARE ([facility]) MEDICARE (M) PART A Oct 23, 2016 PART A [id number] QUE GELLER PATIENT MEDICARE ([facility]) MEDICARE (M) PART B Oct 23, 2016 PART B [id number] QUE GELLER PATIENT MEDICARE ([facility]) MEDICARE (M) PART B Jul 25, 2011 PART B [id number] [phone] QUE GELLER PATIENT MEDICARE ([facility]) MEDICARE (M) PART B Jul 25, 2011 PART B [id number] 97A QUE GELLER PATIENT MEDICARE (WNR) MEDICARE (M) PART B Jul 25, 2011 PART B [id number] QUE GELLER PATIENT MEDICARE (WNR) MEDICARE (M) PART A Apr 24, 2004 PART A [id number] 97A QUE GELLER PATIENT MEDICARE (WNR) MEDICARE (M) PART A Apr 24, 2004 PART A [id number] 97A QUE GELLER PATIENT MEDICARE (WNR) MEDICARE (M) PART A Apr 24, 2004 PART A [id number] QUE GELLER PATIENT Selected Encounter This section includes the information on record at [place] for the Encounter. Date/Time Encounter Type Encounter Description Reason Pro vider Source Mar 27, 2024 02:02 PM Outpatient Encounter ADMIN PAT ACTIVTIES (MASNONCT) [...] 11, 2024 01:00 PM AMBULATORY - MEDICINE [place] [facility] Apr 24, 2024 01:00 PM AM[facility]ULATORY - MEDICINE [facility] Apr 25, 2024 04:00 PM AMBULATORY - NONE [place] [place] [facility] Apr 26, 2024 08:50 AM AMBULATORY - MEDICINE [place] [place] [facility] May 14, 2024 03:00 PM AMBULATORY - MEDICINE [place] [place] [facility] May 14, 2024 03:30 PM AMBULATORY - MEDICINE [place] [facility] [place] [facility] May 21, 2024 09:00 AM AMBULATORY - MEDICINE [place] [place] [facility] Jun 26, 2024 02:30 PM AMBULATORY - MEDICINE [place] [place] [facility] Jun 26, 2024 03:00 PM AMBULATORY - MEDICINE [place] [place] [facility] Jun 26, 2024 03:15 PM AMBULATORY - MEDICINE [place] [place] [facility] Jul 03, 2024 04:00 PM [facility] [place] [facility] Sep 04, 2024 04:00 PM AMBULATORY - [facility]IC[facility] [place] [facility] Sep 11, 2024 01:00 PM [...] of theEncounter. The data comes from all [place] treatment facilities. Test Date/Time Test Type Test Details Facility Name Mar 22, 2024 12:13 PM Consult Order COMMUNITY CARE-MRI Cons Full Stack Python Developer's Choice [facility] Lab Results: +/- 30 days of the encounter This section includes the Chemistry and Hematology Lab Results on record with [place] for the patient. Radiology Reports and Pathology Reports are provided separately, in subsequent sections. Lab Results This section contains the Chemistry/Hematology Results that were resulted 30 days before or 30 daysafter the date of the Encounter. Date/Time Source Result Type Result - Unit Interpretation Reference Range Comment Mar 22, 2024 11:37 AM [place] THYROID T4 FREE(FT4) (WROX) Specimen Ty pe: SERUM No comment entered. Ordering Provider: WAYNE WHEATLEY Report Released Date/Time: Mar 22, 2024 10:50 AM Reporting Lab: [place] [facility] [address] [facility] [address] Performing Lab: [place] CNTR WSN [facility] [address] [facility] [address] THYROID T4 FREE(FT4) (WROX) 0.99 ng/dL 0.6-1.6 Mar 22, 2024 11:37 AM [place] THYROID TOTAL T3 Specimen Type: SERUM No comment entered. Ordering Provider: WAYNE WHEATLEY Report Released Date/Time: Mar 22, 2024 10:50 AM Reporting Lab: [facility] [address] [facility] [address] Performing Lab: [facility] [address] [facility] [address] THYROID TOTAL T3 102.12 ng/dL 35-193 Mar 22, 2024 11:37 AM [facility] TSH Specimen Type: SERUM No comment entered. Ordering Provider: WAYNE WHEATLEY Report Released Date/Time: Mar 22, 2024 10:50 AM Reporting Lab: [facility] [address] [facility] [address] Performing Lab: [facility] [address] [facility] [address] TSH 6.24 u[IU]/mL H 0.35-5.00 Mar 22, 2024 11:37 AM [facility] CBC AND DIFF (AUTO) Specimen Type: BLOOD No comment entered. Ordering Provider: WAYNE WHEATLEY Report Released Date/Time: Mar 22, 2024 10:50 AM Reporting Lab: [facility] [address] [facility] [address] Performing Lab: [facility] [address] [facility] [address] WBC 6.41 10*3/uL 4.50-11.00 RBC 4.43 10*6/uL [...] and tobacco- related health factors from the [place] facility where the Encounter took place. Current Smoking Status This section includes the most current smoking, or tobacco-related health factor, from the [place] facility where the Encounter took place. Date/Time Current Smoking Status Comment Facil ity Mar 22, 2024 12:43 PM VA-TOBACCO NEVER USED [facility] Tobacco Use History This section includes a history of the smoking, or tobacco-related health factors, that were collected on or before the date of the Encounter. The data comes from the [place] facility where the Encounter took place. Date/Time Smoking Status/Tobacco Use Comment F acility Mar 26, 2021 02:25 PM VA-TOBACCO NEVER USED [facility] Advance Directives: All historical and [...] Nov 04, 2016 ADVANCE DIRECTIVE RONY URRUTIA [facility] Encounter Notes: All associated encounter notes This section contains the clinical notes associated to the Encounter. Date/Time Encounter Note(s) Provider Source Mar 27, 2024 02:02 PM ADMINISTRATIVE NOT E: LOCAL TITLE: CCC: SCHEDULING ADMINISTRATION STANDARD TITLE: ADMINISTRATIVE NOTE DATE OF NOTE: MAR 27, 2024@14:02 ENTRY DATE: MAR 27, 2024@14:02:40 AUTHOR: KATT CHAPIN EXP COSIGNER: URGENCY: STATUS: COMPLETED CCC: SCHEDULING ADMINISTRATION Has ADDENDA PT STATES THE PAIN CLINIC HAS NOT RECEIVED THE CONSULT , PLEASE CALL PT AT . /jose cruz/ KATT CHAPIN Medical Cable Rigger Signed: 03/27/2024 14:04 Receipt Acknowledged By: 03/29/2024 15:12 /jose cruz/ Marybeth Irby, RN Registered Nurse for [facility] 03/27/2024 14:44 /es/ BONNIE WILLIS, JYOTI REGISTERED NURSE 03/30/2024 ADDENDUM STATUS: COMPLETED ADDED COMMENT 03/27/24 15:37 VENKAT ARNETT MELISSA M SV-Spoke with /caregiver [place] Expert spoke with Amenia requesting to see [facility] pain management in [place]. PSP-Amenia's Scheduled Provider Updated provider [facility] [address] [address] [phone] PSP RCT-Referral Coordination Research And Development Researcher Auspherix User Role: Latrine Cleaner SCHEDULED 03/29/24 14:34 WAYNE WHEATLEY MELISSA M COM CARE-PAIN MANAGEMENT Consult Appt. on 04/26/24 @ 08:50 HSRM, CONSULT [id number] PID=[id number], 2024 PER CONSULT, PROVIDER [facility] ADDED COMMENT 03/29/24 14:35 VENKAT ARNETT MELISSA M RCT-Referral Coordination Research And Development Researcher Auspherix User Role: Latrine Cleaner COM-Additional Comments: Referral Number: [id number] Priority: Routine Referral Issue Date: 2024-03-01 Expiration Date: 2024-10-23 First Appointment Date: 2024-04-26 COM /jose cruz/ BONNIE WILLIS, JYOTI REGISTERED NURSE Signed: 03/30/2024 09:03 KATT CHAPIN CNTRL [facility]
--- OUTSIDE RECORDS SUMMARY | 2024-07-26 16:59 | XMS_ITS ---
Author Name [place] Address [address] [place] [address] Care Team Providers Care Firmware Manager Name Role Phone WAYNE WHEATLEY Primary Care [...] Name Patient's Relationship to Policy [facility]) MEDICARE ADVANTAGE [facility] ([facility] Aug 25, 2001 [facility] ([facility]) [id number] ADRIANA GELLER PATIENT MEDICARE ([facility]) MEDICARE (M) PART A Oct 23, 2016 PART A [id number] QUE GELLER PATIENT MEDICARE ([facility]) MEDICARE (M) PART B Oct 23, 2016 PART B [id number] QUE GELLER PATIENT MEDICARE ([facility]) MEDICARE (M) PART B Jul 25, 2011 PART B [id number] [phone] QUE GELLER PATIENT MEDICARE ([facility]) MEDICARE (M) PART B Jul 25, 2011 PART B [id number] 97A QUE GELLER PATIENT MEDICARE (WNR) MEDICARE (M) PART B Jul 25, 2011 PART B [id number] QUE GELLER PATIENT MEDICARE (WNR) MEDICARE (M) PART A Apr 24, 2004 PART A [id number] 97A QUE GELLER PATIENT MEDICARE (WNR) MEDICARE (M) PART A Apr 24, 2004 PART A [id number] 97A QUE GELLER PATIENT MEDICARE (WNR) MEDICARE (M) PART A Apr 24, 2004 PART A [id number] QUE GELLER PATIENT Selected Encounter This section includes the information on record at [place] for the Encounter. Date/Time Encounter Type Encounter Description Reason Pro vider Source Jan 20, 2024 12:00 AM Outpatient Encounter COMMUNITY CARE CONSULT IHE Encounter Template Text not used by [place] Plan of Treatment: Future Appointments (+ 6 months) and Future Tests (+/- 45 days) The Plan of Treatment section includes future care activities for the patient from all [place] treatmentfacilities. This section includes future appointments and future orders which are active, pending or scheduled. Future Appointments This section includes appointments that were scheduled to occur 6 months from the date of the Encounter, up to a maximum of 20 appointments. The data comes from all [place] treatment facilities. Appointment Date/Time Appointment Type Appointme nt Facility Name Mar 22, 2024 11:00 AM AMBULATORY - MEDICINE [facility] Apr 11, 2024 01:00 PM AMBULATORY - MEDICINE [place] [facility] Apr 24, 2024 01:00 PM AMBULATORY - MEDICINE [facility] Apr 25, 2024 04:00 PM AMBULATORY [...] 14, 2024 03:30 PM AMBULATORY - MEDICINE [place] [facility] May 21, 2024 09:00 AM AMBULATORY - MEDICINE [place] [facility] Jun 26, 2024 02:30 PM AMBULATORY - MEDICINE [place] [facility] Jun 26, 2024 03:00 PM AMBULATORY - MEDICINE [place] [facility] Jun 26, 2024 03:15 PM AMBULATORY - MEDICINE [place] [facility] Jul 03, 2024 04:00 PM AMBULATORY - [facility]ICINE [place] [facility] Lab Results: +/- 30 days of the encounter This section includes the Chemistry and Hematology Lab Results on record with [place] for the patient. Radiology Reports and Pathology Reports are provided separately, in subsequent sections. Lab Results This section contains the Chemistry/Hematology Results that were resulted 30 days before or 30 daysafter the date of the Encounter. Date/Time Source Result Type Result - Unit Interpretation Reference Range Comment Feb 13, 2024 02:01 PM [place] TSH Specimen Type: SERUM No comment entered. Ordering Provider: BHAVANI BYRD Report Released Date/Time: December 12, 2023 09:14 PM Reporting Lab: [facility] [address] [facility] [address] Performing Lab: [place] [facility] [address] TSH 6.71 u[IU]/mL H 0.35-5.00 Social History: Smoking Status (Most current) and Tobacco Use (All prior to encounter date) This section includes the most current, and the historical, smoking and tobacco- related health factors from the [place] facility where the Encounter took place. Current Smoking Status This section includes the most current smoking, or tobacco-related health factor, from the [place] facility where the Encounter took place. Date/Time Current Smoking Status Comment Catie thompson Mar 26, 2021 02:25 PM VA-TOBACCO NEVER [facility]ED [facility] Advance Directives: All historical and current Section Date Range: From patient's date of to the date document was created. This section includes ALL of a patient's completed or amended [place] Advance and Rescinded Directives. The entries below indicate that a directive exists for the patient, but an actual copy is not included with this document. The data comes from all [place] facilities. Date Advance Directives Provider Source Nov 04, 2016 ADVANCE DIRECTIVE RONY URRUTIA [place] [facility] Encounter Notes: All associated encounter notes This section contains the clinical notes associated to the Encounter. Date/Time Encounter Note(s) Provider Source Jan 20, 2024 12:00 AM NONVA CONSULT: LOCAL TITLE: COMMUNITY CARE-CONSULT RESULT COLONOSCOPY STANDARD TITLE: NONVA CONSULT DATE OF NOTE: JAN 20, 2024 ENTRY DATE: MAR 29, 2024@11:13:43 AUTHOR: TOÑITO COLEMAN EXP COSIGNER: URGENCY: STATUS: COMPLETED VistA Imaging - Scanned Document SCANNED DOCUMENT SIGNATURE NOT REQUIRED Electronically Filed: 03/29/2024 by: TOÑITO HERCULES [facility] Jan 20, 2024 12:00 AM NONVA DIAGNOSTIC S DEBBIE REPORT: LOCAL TITLE: NON-VA DIAGNOSTICS STANDARD TITLE: NONVA DIAGNOSTIC STUDY REPORT DATE OF NOTE: JAN 20, 2024 ENTRY DATE: APR 08, 2024@10:35:18 AUTHOR: AURA SIMMONS EXP COSIGNER: URGENCY: STATUS: COMPLETED VistA Imaging - Scanned Document SCANNED DOCUMENT SIGNATURE NOT REQUIRED Electronically Filed: 04/08/2024 by: AURA GUTIÉRREZ [facility]
--- OUTSIDE RECORDS SUMMARY | 2024-07-26 16:59 | XMS_ITS | Encounter Summary ---
Author Name [facility] Organization [facility] Address [address] [place] [address] Care Team Providers Care Research Quality Assurance Analyst Name Role Phone WAYNE WHEATLEY Primary [...] Policy [facility]) MEDICARE ADVANTAGE [facility] ([facility]) Aug 25, 2001 [facility] ([facility]) [id number] ADRIANA GELLER PATIENT MEDICARE ([facility]) MEDICARE () PART A Oct 23, 2016 PART A [id number] QUE GELLER PATIENT MEDICARE ([facility]) MEDICARE () PART B Oct 23, 2016 PART B [id number] [phone] QUE GELLER PATIENT MEDICARE ([facility]) MEDICARE () PART B Jul 25, 2011 PART B [id number] QUE GELLER PATIENT MEDICARE ([facility]) MEDICARE () PART B Jul 25, 2011 PART B [id number] QUE GELLER PATIENT MEDICARE ([place]) MEDICARE (M) PART B Jul 25, 2011 PART B [id number] QUE GELLER PATIENT MEDICARE (WNR) MEDICARE (M) PART A Apr 24, 2004 PART A [id number] [place] GE[place] PATIENT MEDICARE ([place]NR) MEDICARE (M) PART A Apr 24, 2004 PART A [id number] [place] PATIENT MEDICARE ([place]NR) MEDICARE (M) PART A Apr 24, 2004 PART A [id number] QUE GELLER PATIENT Selected Encounter This section includes the information on record at [place] for the Encounter. Date/Time Encounter Type Encounter Description Reason Pro vider Source Apr 24, 2024 09:07 AM Outpatient Encounter DENTAL IHE Encounter Template Text not used by [place] Plan of Treatment: Future Appointments (+ 6 months) and Future Tests (+/- 45 days) The Plan of Treatment section includes future care activities for the patient from all [place] [email or web address]. This section includes future appointments and future orders which are active, pending or scheduled. Future Appointments This section includes appointments that were scheduled to occur 6 months from the date of the Encounter, up to a maximum of 20 appointments. The data comes from all [place] treatment facilities. Appointment Date/Time Appointment Type Appointme nt Facility Name Apr 25, 2024 04:00 PM AMBULATORY - NONE [place] [facility] [place] [facility] Apr 26, 2024 08:50 AM [place]IC[place] [facility] [place] [facility] May 14, 2024 03:00 PM [place] [facility] [place] [facility] May 14, 2024 03:30 PM [place] [facility] [place] [facility] May 21, 2024 09:00 AM [place] [facility] [place] [facility] Jun 26, 2024 02:30 PM [place] [facility] [place] [facility] Jun 26, 2024 03:00 PM [place] [facility] [place] [facility] Jun 26, 2024 03:15 PM [facility] Jul 03, 2024 04:00 PM AMBULATORY - [facility]ICINE [place] [facility] Sep 04, 2024 04:00 PM AMBULATORY - [facility]ICINE [place] [facility] Sep 11, 2024 01:00 PM AMBULATORY - [...] of theEncounter. The data comes from all [place] treatment facilities. 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 Current Smoking Status This section includes the most current smoking, or tobacco-related health factor, from the [place] facility where the Encounter took place. Date/Time Current Smoking Status Comment Facil ity Mar 22, 2024 12:43 PM VA-TOBACCO NEVER USED [facility] Tobacco Use History This section includes a history of the smoking, or tobacco-related health factors, that were collected on or before the date of the Encounter. The data comes from the [place] facility where the Encounter took place. Date/Time Smoking Status/Tobacco Use Comment F acility Mar 26, 2021 02:25 PM VA-TOBACCO NEVER USED [facility] Advance Directives: All historical and current Section Date Range: From patient's date of to the date document was created. This section includes ALL of a patient's completed or amended [place] Advance and Rescinded Directives. The entries below indicate that a directive exists for the patient, but an actual copy is not included with this document. The data comes from all [place] facilities. Date Advance Directives Provider Source Nov 04, 2016 ADVANCE DIRECTIVE RONY URRUTIA [place] [facility] Encounter Notes: All associated encounter notes This section contains the clinical notes associated to the Encounter. Date/Time Encounter Note(s) Provider Source Apr 24, 2024 09:07 AM DENTISTRY TELEPHON E ENCOUNTER NOTE: LOCAL TITLE: TELEPHONE NOTE/DENTAL STANDARD TITLE: DENTISTRY TELEPHONE ENCOUNTER NOTE DATE OF NOTE: APR 24, 2024@09:07 ENTRY DATE: APR 24, 2024@09:07:54 AUTHOR: POP JOSEPH EXP COSIGNER: URGENCY: STATUS: COMPLETED Called pt and LM to confirm dental appointment on 04/25/2024 at 4:00 pm. /jose cruz/ POP JOSEPH ADVANCED MACHINERY ERECTOR Signed: 04/24/2024 09:08 POP JOSEPH [facility]
--- OUTSIDE RECORDS SUMMARY | 2024-07-26 16:59 | XMS_ITS | Encounter Summary ---
Author Name [facility] [place] [facility] [place] Address [address] [place] [id number] Care Team Providers Care Tool Smith Name Role Phone WAYNE WHEATLEY Primary Care [...] Name Patient's Relationship to Policy [facility]) MEDICARE ADVANTAGE [facility] ([facility]) Aug 25, 2001 [facility] ([facility]) [id number] [phone] ADRIANA GELLER PATIENT MEDICARE ([facility]) MEDICARE (M) PART A Oct 23, 2016 PART A [id number] QUE GELLER PATIENT MEDICARE ([facility]) MEDICARE (M) PART B Oct 23, 2016 PART B [id number] QUE GELLER PATIENT MEDICARE ([facility]) MEDICARE (M) PART B Jul 25, 2011 PART B [id number] QUE GELLER PATIENT MEDICARE ([facility]) MEDICARE (M) PART B Jul 25, 2011 PART B [id number] QUE GELLER PATIENT MEDICARE (WNR) MEDICARE (M) PART B Jul 25, 2011 PART B [id number] QUE GELLER PATIENT MEDICARE (WNR) MEDICARE (M) PART A Apr 24, 2004 PART A [id number] QUE GELLER PATIENT MEDICARE (WNR) MEDICARE (M) PART A Apr 24, 2004 PART A [id number] [phone] QUE GELLER PATIENT MEDICARE (WNR) MEDICARE (M) PART A Apr 24, 2004 PART A [id number] QUE GELLER PATIENT Selected Encounter This section includes the information on record at [place] for the Encounter. Date/Time Encounter Type Encounter Description Reason Provider Source Mar 22, 2024 11:00 AM OFFICE O/P EST MOD 30 MIN PRIMARY CARE/MEDICINE ICD-10-CM D64.9 Anemia, unspecified WAYNE WHEATLEY Harris Encounter Template Text not used by [place] Assessments - Encounter Diagnoses This section includes the primary and secondary diagnoses documented for the Encounter. Date/Time Primary/Secondary Diagnosis Diagnosis Name Provider Source Apr 07, 2024 01:28 PM PRIMARY Anemia, unspecified WAYNE WHEATLEY [facility] Apr 07, 2024 01:28 PM SECONDARY Chronic pain syndrome WAYNE WHEATLEY [facility] Apr 07, 2024 01:28 PM SECONDARY Contact with and exposure to other hazardous substances WAYNE WHEATLEY [facility] Apr 07, 2024 01:28 PM SECONDARY Corns and callosities WAYNE WHEATLEY [facility] Apr 07, 2024 01:28 PM SECONDARY Gastroparesis WAYNE WHEATLEY [facility] Apr 07, 2024 01:28 PM SECONDARY Hyperlipidemia, unspecified WAYNE WHEATLEY [facility] Apr 07, 2024 01:28 PM SECONDARY Hypothyroidism, WAYNE Patel MARGRET Plan of Treatment: Future Appointments (+ 6 months) and Future Tests (+/- 45 days) The Plan of Treatment section includes future care activities for the patient from all VA treatmentfacilities. This section includes future appointments and future orders which are active, pending or scheduled. Future Appointments This section includes appointments that were scheduled to occur 6 months from the date of the Encounter, up to a maximum of 20 appointments. The data comes from all [facility]. Appointment Date/Time Appointment Type Appointme nt Facility Name Apr 11, 2024 01:00 PM AMBULATORY [facility] MEDICINE [facility] [place] [facility] Apr 24, 2024 01:00 PM AMBULATORY - MEDICINE [place] Apr 25, 2024 04:00 PM AMBULATORY - NONE [facility] [place] [facility] Apr 26, 2024 08:50 AM AMBULATORY - MEDICINE [facility] [place] [facility] May 14, 2024 03:00 PM AMBULATORY - MEDICINE [facility] May 14, 2024 03:30 PM AMBULATORY - MEDICINE [facility] May 21, 2024 09:00 AM AMBULATORY - MEDICINE [facility] Jun 26, 2024 02:30 PM AMBULATORY - MEDICINE [facility] Jun 26, 2024 03:00 PM AMBULATORY - MEDICINE [facility] Jun 26, 2024 03:15 PM AMBULATORY - MEDICINE [facility] Jul 03, 2024 04:00 PM [facility]BULATORY - MEDICINE [facility] Sep 04, 2024 04:00 PM AMB[facility]ATORY - MEDICINE [facility] Sep 11, 2024 01:00 PM AMBULATORY - [...] of theEncounter. The data comes from all [facility]. Test Date/Time Test Type Test Details Facility Name Mar 22, 2024 12:13 PM Consult Order [facility] Cons Lead Quality Control Technician's Choice [facility] Lab Results: +/- 30 days of the [...] Range Comment Mar 22, 2024 11:37 AM [facility] THYROID TOTAL T3 Specimen Type: SERUM No comment entered. Ordering Provider: WAYNE WHEATLEY Report Released Date/Time: Mar 22, 2024 10:50 AM Reporting Lab: [place] [facility] [facility] [address] [facility] [phone] Performing Lab: [place] [facility] [facility] [address] [facility] [phone] THYROID TOTAL T3 102.12 ng/dL 35-193 Mar 22, 2024 11:37 AM [facility] THYROID T4 FREE(FT4) (WROX) Specimen Ty pe: SERUM No comment entered. Ordering Provider: WAYNE WHEATLEY Report Released Date/Time: Mar 22, 2024 10:50 AM Reporting Lab: [place] [facility] [place] [address] [address] Performing Lab: [place] [facility] [address] [facility] [phone] THYROID T4 FREE(FT4) (WROX) 0.99 ng/dL 0.6-1.6 Mar 22, 2024 11:37 AM [facility] TSH Specimen Type: SERUM No comment entered. Ordering Provider: WAYNE WHEATLEY Report Released Date/Time: Mar 22, 2024 10:50 AM Reporting Lab: [place] [facility] [address] [facility] [address] Performing Lab: [place] [facility] [address] [address] TSH 6.24 u[IU]/mL H 0.35-5.00 Mar 22, 2024 11:37 AM [facility] CBC AND DIFF (AUTO) Specimen Type: BLOOD No comment entered. Ordering Provider: WAYNE WHEATLEY Report Released Date/Time: Mar 22, 2024 10:50 AM Reporting Lab: [place] [facility] [facility] [address] [facility] [address] Performing Lab: [place] [facility] [address] [address] WBC 6.41 10*3/uL 4.50-11.00 RBC 4.43 10*6/uL [...] 0.0 0.0-0.0 NRBC, ABS 0.00 10*3/uL 0.00-0.00 Vital Signs: All taken on the encounter date This section contains inpatient and outpatient Vital Signs collected on the date of the Encounter. Date/Time Temperature Pulse Blood Pressure Respiratory Rate SP02 Pain Height Weight Body Mass Index Source Mar 22, 2024 12:40 PM 98.2 83 146/81 96 215.4 32 [place] Social History: Smoking Status (Most current) and [...] Catie thompson Mar 02, 2023 01:30 PM [place]-TOBACCO NEVER USED [facility] Tobacco Use History This section includes a history of the smoking, or tobacco-related health factors, that were collected on or before the date of the Encounter. The data comes from the [place] facility where the Encounter took place. Date/Time Smoking Status/Tobacco Use Comment Gaby carrillo Mar 04, 2022 03:00 PM VA-TOBACCO NEVER USED [facility] Apr 10, 2020 03:00 PM VA-TOBACCO NEVER USED [facility] Sep 26, 2018 04:01 PM VA-TOBACCO NEVER USED [facility] Jun 26, 2018 03:45 PM FORMER SMOKER - <100 LIFETIME CI GARETTES [facility] Nov 04, 2017 04:35 PM LIFETIME NON-TOBACCO USER [facility] Nov 04, 2016 09:12 AM LIFETIME NON-TOBACCO USER [facility] Oct 09, 2015 03:10 PM LIFETIME NON-TOBACCO USER [facility] Jul 23, 2005 02:15 PM HISTORY OF SMOKING [facility] Aug 20, 2004 10:48 AM LIFETIME NON-SMOKER [facility] Advance Directives: All historical and current Section Date Range: From patient's date of to the date document was created. This section includes ALL of a patient's completed or amended [place] Advance and Rescinded Directives. The entries below indicate that a directive exists for the patient, but an actual copy is not included with this document. The data comes from all [facility]. Date Advance Directives Provider Source Nov 04, 2016 ADVANCE DIRECTIVE [facility] Encounter Notes: All associated encounter notes This section contains the clinical notes associated to the Encounter. Date/Time Encounter Note(s) Provider Source Mar 22, 2024 12:20 PM PRIMARY CARE NURSE PRACTITIONER OUTPATIENT NOTE: LOCAL TITLE: NURSE PRACTITIONER OUTPATIENT NOTE STANDARD TITLE: PRIMARY CARE NURSE PRACTITIONER OUTPATIENT NOTE DATE OF NOTE: MAR 22, 2024@12:20 ENTRY DATE: APR 06, 2024@14:56:34 AUTHOR: WAYNE WHEATLEY COSIGNER: URGENCY: STATUS: COMPLETED PRIMARY CARE VISIT KAM RAMON GELLER, is a 73 yo WHITE MALE who [facility] the [place] [facility]. TYPE OF VISIT: Face to face 73-year-old with chronic back pain, hypothyroid, HLD, GERD, chronic pain syndrome, gastroparesis, anemia presented to the outpatient clinic in regular follow-up. He visited [facility] in September for back pain. He was referred to podiatry and the pain clinic. Recent labs and diagnostic studies were reviewed with the [facility]. All medications were reconciled during this visit. HEALTHCARE PROVIDERS: PCP: [facility] Pain: S[facility]RAV, Dr. Tapia Pain: [facility] GI: [facility] Podiat[facility]: [place] Dental: [place] Optometry: [place] Social Hx: The [facility] is and lives with his and several dogs. No nicotine, alcohol. He uses marijuana twice weekly for sleep. 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 He exercises regularly by stretching. HISTORY: PERIOD OF SERVICE - [facility] FROM Feb TO Feb COMBAT SERVICE INDICATED: Yes MEDICAL HISTORY Active Problem Exposure to potentially hazardous s 03/23/2024 VENUS GONZALEZ Obesity E66.9 03/22/2024 WAYNE WHEATLEY A Anemia D64.9 10/05/2023 BHAVANI BYRD Callus L84. 10/05/2023 BHAVANI BYRD Traumatic pneumothorax S27.0XXD 03/02/2023 KAREN SCHAFER Edema R60.9 02/12/2022 KELTON MEZA Gastroparesis K31.84 07/11/2021 KELTON MEZA H/O: surgery Z98.890 07/31/2020 KELTON MEZA Chronic pain G89.4 10/20/2021 KELTON MEZA Lumbar DXA scan result normal R69., 04/19/2017 KELTON MEZA ECG: normal sinus rhythm R69. 05/13/2022 KELTON MEZA Hip Pain 719.45 01/07/2015 RAMON OLSON Screening for Malignant Neoplasms o 01/07/2015 RAMON OLSON Back pain (SNOMED CT 112010568) M54 09/09/2021 KELTON MEZA Hypothyroidism (SNOMED CT 05101766) 09/09/2021 KELTON MEZA Hyperlipidemia (SNOMED CT 80578726) 09/09/2021 KELTON MEZA beta thalassemia (SNOMED CT 1887044 09/02/2022 KAREN SCHAFER Knee Joint replacement Status (Pros 09/17/2011 RAMON OLSON Depression (SNOMED CT 58779889) F33 11/04/2016 DERRICKKELTON Heartburn (SNOMED CT 82065175) R12. 07/09/2021 KELTON MEZA VITAL SIGNS: Temperature 98.2 F [36.8 C] (03/22/2024 12:40) Blood Pressure 146/81 (03/22/2024 12:40) Pulse 83 (03/22/2024 12:40) Respiration 18 (10/20/2023 15:47) Pain 4 (10/20/2023 15:47) BMI BMI: 31.9 Weight 215.4 lb [97.70 kg] (03/22/2024 12:40) Pulse Oximetry 96% (03/22/2024 12:40) ASSISTIVE DEVICES: None REVIEW OF SYSTEMS: CONSTITUTIONAL: No fevers, chills, weight loss/gain ENT: No sore throat, sneezing, congestion, rhinorrhea, anosmia, or ageusia. CARDIOVASCULAR: No chest pain, palpitations, or increased pedal edema RESPIRATORY: No SOB, cough, sputum, wheeze. GASTROINTESTINAL: Denies abd pain, N/V/D. No melena or hematochezia. No tenesmus or constipation. GENITOURINARY: No burning micturition. No urinary frequency or urgency. No nocturia. MUSCULOSKELETAL: No myalgias or arthralgias. PSYCHIATRIC: No new anxiety or depression. No sleep disturbance. NEUROLOGIC: No headaches, dizziness, numbness or tingling in the extremities, or unilateral weakness. EXAMINATION General: Older [place] in no obvious distress. Mental Status: Alert and oriented x4. Head: Normocephalic. Eyes: PERRLA. EOMI. Anicteric sclerae. ENT: Moist oral mucosa. Posterior pharynx unremarkable Neck: Supple. No JVD. No LAD. No bruit. Lungs: CTA. Normal chest excursion. Eupneic respirations. CV: Heart tones S1, S2. RRR. No M/G/R. No peripheral edema GI: Abdomen is soft and nontender. No palpable mass. : No CVA tenderness. Ext: No cyanosis or clubbing. No gross deformities. Neuro: CN II through XII grossly intact. Normal speech. Normal gait. Integument: Skin warm and dry. No concerning lesions or rashes. Psych: Normal mood and affect. Normal judgment. ALLERGIES: ========= ERYTHROMYCIN, NEURONTIN, FLOMAX >> HEALTH MAINTENANCE PREVENTIVE MEDICINE GOALS Influenza Immunization DUE NOW Medication Reconciliation DUE NOW COVID-19 Immunization DUE NOW (Optional) Whole Health Documentation DUE NOW ASSESSMENT/PLAN: Active problems - Computerized Problem List is the source for the following: Anemia: Qwg-otzerwmuzcp-dmeolqvcq beta thalassemia. Stable with H/H . Denies any melena or hematochezia. Follows with [facility] who recently stopped opiates. Next appointment 04/11. Callus: Following with [place] podiatry. Appointment 04/24. Gastroparesis: As noted, following with [facility]. Opiates stopped due to gastroparesis. Chronic pain: Uses a nerve stimulator and infusion pump with Dilaudid. Follows with the [place] pain, Dr. Feliciano. Also has an upcoming appointment at [place] [facility]. Hypothyroidism (SNOMED CT 92904039): TSH normal. Continue levothyroxine 125 mcg daily. Hyperlipidemia (SNOMED CT 85628049): Lipid panel and LFTs are normal. Continue simvastatin. FOLLOW UP: RTC Below & sooner PRN UPCOMING APPOINTMENTS: 04/11/2024 13:00 [facility] CARE-GI GENERAL 04/24/2024 13:00 CWM/SO/PODIATRY/WOLF 04/25/2024 16:00 [facility] DENTAL RDH 1 PM 04/26/2024 08:50 COM CARE-PAIN MANAGEMENT 05/01/2024 14:00 NHM/OPT/VISUAL IMAGING 05/01/2024 14:30 CWM/NO/OPTOMETRY/[facility] 07/26/2024 14:00 CWM/SO/PACT 1 WELT TREATER 35 minutes spent in patient evaluation, data review, and patient education. All medications were reconciled during this visit. No barriers; Patient understands and agrees to current treatment plan. If pt has any questions, concerns, or changes in current health status he/she will call or come in to the VA. Medication Reconciliation: Outpatient: Has the patient been taking medications as documented in the EMLR? YES: The patient has been taking medications as documented in the EMLR. Essential Medication List for Review used to complete this medication reconciliation. INCLUDED IN THIS LIST: Alphabetical list of active outpatient prescriptions dispensed from this [facility] (local) and dispensed from another [place] or [facility] facility (remote) as well as inpatient [...] whether with a VA or non-VA provider. /jose cruz/ WAYNE WHEATLEY NP NURSE PRACTITIONER Signed: 04/07/2024 13:27 WAYNE WHEATLEY [facility] Mar 22, 2024 12:15 PM PRIMARY CARE NURSE PRACTITIONER OUTPATIENT NOTE: LOCAL TITLE: NURSE PRACTITIONER OUTPATIENT NOTE STANDARD TITLE: PRIMARY CARE NURSE PRACTITIONER OUTPATIENT NOTE DATE OF NOTE: MAR 22, 2024@12:15 ENTRY DATE: MAR 28, 2024@12:19:44 AUTHOR: WAYNE WHEATLEY EXP COSIGNER: URGENCY: STATUS: COMPLETED PRIMARY CARE VISIT KAM GELLER, is a 73 yo WHITE MALE who presents at the [place] [facility]. TYPE OF VISIT: Face to face Recent labs and diagnostic studies were reviewed with the [facility]. All medications were reconciled during this visit. HEALTHCARE PROVIDERS: Social Hx: MARITAL STATUS - HISTORY: PERIOD OF SERVICE - FROM Feb TO Feb COMBAT SERVICE INDICATED: Yes MEDICAL HISTORY Active Problem Exposure to potentially hazardous s 03/23/2024 CARLOSVENUS Obesity E66.9 03/22/2024 WAYNE WHEATLEY Anemia D64.9 10/05/2023 BHAVANI BYRD Callus L84. 10/05/2023 BHAVANI BYRD Traumatic pneumothorax S27.0XXD 03/02/2023 KAREN SCHAFER Edema R60.9 02/12/2022 KELTON MEZA Gastroparesis K31.84 07/11/2021 KELTON MEZA H/O: surgery Z98.890 07/31/2020 KELTON MEZA Chronic pain G89.4 10/20/2021 KELTON MEZA Lumbar DXA scan result normal R69., 04/19/2017 KELTON MEZA ECG: normal sinus rhythm R69. 05/13/2022 KELTON MEZA Hip Pain 719.45 01/07/2015 RAMON OLSON Screening for Malignant Neoplasms o 01/07/2015 RAMON OLSON Back pain (SNOMED CT 557763413) M54 09/09/2021 KELTON MEZA Hypothyroidism (SNOMED CT 24304435) 09/09/2021 KELTON MEZA Hyperlipidemia (SNOMED CT 98009651) 09/09/2021 KELTON MEZA beta thalassemia (SNOMED CT 2423811 09/02/2022 KAREN SCHAFER Knee Joint replacement Status (Pros 09/17/2011 RAMON OLSON Depression (SNOMED CT 23835492) F33 11/04/2016 BONNIEAlejandroZULEMAKELTON Heartburn (SNOMED CT 56150003) R12. 07/09/2021 DERRICKLAMINEA VITAL SIGNS: Temperature 98.2 F [36.8 C] (03/22/2024 12:40) Blood Pressure 146/81 (03/22/2024 12:40) Pulse 83 (03/22/2024 12:40) Respiration 18 (10/20/2023 15:47) Pain 4 (10/20/2023 15:47) BMI BMI: 31.9 Weight 215.4 lb [97.70 kg] (03/22/2024 12:40) Pulse Oximetry 96% (03/22/2024 12:40) ASSISTIVE DEVICES: REVIEW OF SYSTEMS: CONSTITUTIONAL: No fevers, chills, weight loss/gain ENT: No sore throat, sneezing, congestion, rhinorrhea, anosmia, or ageusia. CARDIOVASCULAR: No chest pain, palpitations, or increased pedal edema RESPIRATORY: No SOB, cough, sputum, wheeze. GASTROINTESTINAL: Denies abd pain, N/V/D. No melena or hematochezia. No tenesmus or constipation. GENITOURINARY: No burning micturition. No urinary frequency or urgency. No nocturia. MUSCULOSKELETAL: No myalgias or arthralgias. PSYCHIATRIC: No new anxiety or depression. No sleep disturbance. NEUROLOGIC: No headaches, dizziness, numbness or tingling in the extremities, or unilateral weakness. EXAMINATION General: Well-appearing in no obvious distress. Mental Status: Alert and oriented x4. Head: Normocephalic. Eyes: PERRLA. EOMI. Anicteric sclerae. ENT: Moist oral mucosa. Posterior pharynx unremarkable Neck: Supple. No JVD. No LAD. No bruit. Lungs: CTA. Normal chest excursion. Eupneic respirations. CV: Heart tones S1, S2. RRR. No M/G/R. No peripheral edema GI: Abdomen is soft and nontender. No palpable mass. : No CVA tenderness. Ext: No cyanosis or clubbing. No gross deformities. Neuro: CN II through XII grossly intact. Normal speech. Normal gait. Integument: Skin warm and dry. No rashes or lesions on visible areas. Psych: Normal mood and affect. Normal judgment. ALLERGIES: ========= ERYTHROMYCIN, NEURONTIN, FLOMAX >> HEALTH MAINTENANCE PREVENTIVE MEDICINE GOALS Toxic Exposure Screening Follow-Up DUE NOW Influenza Immunization DUE NOW Medication Reconciliation DUE NOW COVID-19 Immunization DUE NOW (Optional) Whole Health Documentation DUE NOW ASSESSMENT/PLAN: Active problems - Computerized Problem List is the source for the followin. Exposure to potentially hazardous substance (SCT 305369419951967) 2. Obesity 3. Anemia 4. Callus 5. Traumatic pneumothorax 6. Edema 7. Gastroparesis 8. H/O: surgery 9. Chronic pain 10. Lumbar DXA scan result normal 11. ECG: normal sinus rhythm 12. Hip Pain 13. Screening for Malignant Neoplasms of colon 14. Back pain (SNOMED CT 579525263) 15. Hypothyroidism (SNOMED CT 64243544) 16. Hyperlipidemia (SNOMED CT 34940386) 17. beta thalassemia (SNOMED CT 91979951) 18. Knee Joint replacement Status (Prosthetic or Artificial Device) 19. Depression (SNOMED CT 26615428) 20. Heartburn (SNOMED CT 14401457) FOLLOW UP: RTC Below & sooner PRN UPCOMING APPOINTMENTS: 04/11/2024 13:00 COM CARE-GI GENERAL 04/24/2024 13:00 CWM/SO/PODIATRY/ROSS 04/25/2024 16:00 NHM DENTAL RDH 1 PM 05/01/2024 14:00 NHM/OPT/VISUAL IMAGING 05/01/2024 14:30 CWM/NO/OPTOMETRY/MERHAR 07/26/2024 14:00 CWM/SO/PACT 1 WELT TREATER minutes spent in patient evaluation, data review, and patient education. All medications were reconciled during this visit. No barriers; Patient understands and agrees to current treatment plan. If pt has any questions, concerns, or changes in current health status he/she will call or come in to the [facility]. Toxic Exposure Screening Follow-Up: Exposure Concern(s): 03/22/2024 Agent Dubach - Toxic Exposure Concern 03/02/2023 Doesnt Know - Toxic Exposure Concern Follow-up Question(s): 03/22/2024 No Questions - Toxic Exposure Concern 03/02/2023 No Questions - Toxic Exposure Concern /caregiver has no health or medical concerns related to their concern of environmental exposure. The following connections were provided to the /caregiver: No connections needed at this time /jose cruz/ WAYNE WHEATLEY NP NURSE PRACTITIONER Signed: 04/06/2024 14:50 WAYNE WHEATLEY
--- OUTSIDE RECORDS SUMMARY | 2024-07-26 16:59 | XMS_ITS | Encounter Summary ---
Author Name [facility] [place] Address [address] [place] [id number] Care Team Providers Care Experimental Technician Name Role Phone WAYNE WHEATLEY Primary [...] Name Patient's Relationship to Policy [facility] MEDICARE ADVANTAGE [facility] ([facility]) Aug 25, 2001 [facility]) [id number] ADRIANA GELLER PATIENT MEDICARE ([facility]) MEDICARE (M) PART A Oct 23, 2016 PART A [id number] UQE GELLER PATIENT MEDICARE ([facility]) MEDICARE (M) PART B Oct 23, 2016 PART B [id number] QUE GELLER PATIENT MEDICARE ([facility]) MEDICARE (M) PART B Jul 25, 2011 PART B [id number] [phone] QUE GELLER PATIENT MEDICARE ([facility]) MEDICARE (M) PART B Jul 25, 2011 PART B [id number] 97A QUE GELLER PATIENT MEDICARE ([facility]) MEDICARE (M) PART B Jul 25, 2011 PART B [id number] QUE GELLER PATIENT MEDICARE (WNR) MEDICARE (M) PART A Apr 24, 2004 PART A [id number] 97A QUE GELLER PATIENT MEDICARE ([facility]NR) MEDICARE (M) PART A Apr 24, 2004 PART A [id number] QUE GELLER PATIENT MEDICARE ([facility]NR) MEDICARE (M) PART A Apr 24, 2004 PART A [id number] QUE GELLER PATIENT Selected Encounter This section includes the information on record at [place] for the Encounter. Date/Time Encounter Type Encounter Description Reason Provider Source Apr 24, 2024 01:00 PM OFFICE O/P EST LOW 20 MIN PODIATRY ICD-10-CM L60.3 Nail dystrophy COURTNEY BLOOM [facility] Encounter Template Text not used by [place] Assessments - Encounter Diagnoses This section includes the primary and secondary diagnoses documented for the Encounter. Date/Time Primary/Secondary Diagnosis Diagnosis Name Provider Source Apr 24, 2024 01:23 PM PRIMARY Nail dystrophy COURTNEY BLOOM Apr 24, 2024 01:23 PM SECONDARY Ingrowing nail COURTNEY BLOOM Apr 24, 2024 01:23 PM SECONDARY Pain in left toe(s) COURTNEY BLOOM [place] Apr 24, 2024 01:23 PM SECONDARY Pain in right toe(s) COURTNEY BLOOM [place] Apr 24, 2024 01:23 PM SECONDARY Peripheral vascular disease, unspecified COURTNEY BLOOM [place] Plan of Treatment: Future Appointments (+ 6 months) and Future Tests (+/- 45 days) The Plan of Treatment section includes future care activities for the patient from all [place] treatmentfacilities. This section includes future appointments and future orders which are active, pending or scheduled. Future Appointments This section includes appointments that were scheduled to occur 6 months from the date of the Encounter, up to a maximum of 20 appointments. The data comes from all [place] treatment facilities. Appointment Date/Time Appointment Type Appointme nt Facility Name Apr 25, 2024 04:00 PM AMBULATORY - NONE [place] [facility] [place] [facility] Apr 26, 2024 08:50 AM AM[facility]ULATORY [facility]ICINE [facility] [place] [facility] May 14, 2024 03:00 PM AM[facility]ULATORY [facility]ICINE [facility] [place] [facility] May 14, 2024 03:30 PM AM[facility]ULATORY [facility]ICINE [facility] [place] [facility] May 21, 2024 09:00 AM AMBULATORY - [facility]ICINE [facility] [place] [facility] Jun 26, 2024 02:30 PM AM[facility]ULATORY [place] MEDICINE [facility] [place] [facility] Jun 26, 2024 03:00 PM AMBULATORY [facility] MEDICINE [facility] [place] [facility] Jun 26, 2024 03:15 PM [facility]UL[facility]ICINE [facility] [place] [facility] Jul 03, 2024 04:00 PM AM[facility]ULATORY - [facility]ICINE [place] [facility] Sep 04, 2024 04:00 PM AMBULATORY - MEDICINE [place] [facility] Sep 11, 2024 01:00 PM [...] of theEncounter. The data comes from all [place] treatment facilities. Test Date/Time Test Type Test Details Facility Name Mar 22, 2024 12:13 PM Consult Order COMMUNITY CARE-MRI Cons Window Dresser[facility] Choice [place] Social History: Smoking Status (Most current) and Tobacco Use (All prior to encounter date) This section includes the most current, and the historical, smoking and tobacco- related health factors from the [place] facility where the Encounter took place. Current Smoking Status This section includes the most current smoking, or tobacco-related health factor, from the [place] facility where the Encounter took place. Date/Time Current Smoking Status Comment Catie thompson Mar 02, 2023 01:30 PM [place]-TOBACCO NEVER USED [place] Tobacco Use History This section includes a history of the smoking, or tobacco-related health factors, that were collected on or before the date of the Encounter. The data comes from the [place] facility where the Encounter took place. Date/Time Smoking Status/Tobacco Use Comment F acmartina Mar 04, 2022 03:00 PM VA-TOBACCO NEVER USED [place] Apr 10, 2020 03:00 PM VA-TOBACCO NEVER USED [place] Sep 26, 2018 04:01 PM VA-TOBACCO NEVER USED [place] Jun 26, 2018 03:45 PM FORMER SMOKER - <100 LIFETIME CI GARETTES [place] Nov 04, 2017 04:35 PM LIFETIME NON-TOBACCO USER [place] Nov 04, 2016 09:12 AM LIFETIME NON-TOBACCO USER [place] Oct 09, 2015 03:10 PM LIFETIME NON-TOBACCO USER [place] Jul 23, 2005 02:15 PM HISTORY OF SMOKING [place] Aug 20, 2004 10:48 AM LIFETIME NON-SMOKER [place] Advance Directives: All historical and current Section Date Range: From patient's date of to the date document was created. This section includes ALL of a patient's completed or amended [place] Advance and Rescinded Directives. The entries below indicate that a directive exists for the patient, but an actual copy is not included with this document. The data comes from all [place] facilities. Date Advance Directives Provider Source Nov 04, 2016 ADVANCE DIRECTIVE RONY URRUTIA [place] MEEK L CORINNA MARTINEZ [facility] Encounter Notes: All associated encounter notes This section contains the clinical notes associated to the Encounter. Date/Time Encounter Note(s) Provider Source Apr 24, 2024 08:20 AM PODIATRY NOTE: LOCAL TITLE: PODIATRY NOTE STANDARD TITLE: PODIATRY NOTE DATE OF NOTE: APR 24, 2024@08:20 ENTRY DATE: APR 24, 2024@08:20:17 AUTHOR: COURTNEY BLOOM COSIGNER: URGENCY: STATUS: COMPLETED NOTE: HAS RECEIVED BOTH COVID VACCINE DOSES + BOOSTER AT [facility] LAST SEEN FOR TREATMENT: 05/12/2022 S: Pt. is a 73 yo alert WDWN CAUC MALE who presents for CONTINUED podiatric examination & CARE for treatment of a presenting complaint of painful ingrown toenails and numbness, tingling and pins and needles distal both feet distal to the met heads and specifically the 2nd toe bilateral. Patient has foot pain as well and is described as above. Patient has been referred by: SELF Location of symptoms are: mid foot and distal and nails 1-2 bilateral Onset of symptoms has been several years (2) due to this being a recurrent condition that has been exacerbating over the past few months. Duration of symptoms is daily with periods of exacerbation and remission. Description of symptoms is of a burning tingling nature that radiates distally AND PLANTARLY FOREFOOT BILATERAL Contributing factors are: shoes and increased activity & NEUROPATHY. PMH: Active problems - Computerized Problem List is the source for the followin. Edema 2. Gastroparesis 3. H/O: surgery 4. Chronic pain 5. Lumbar DXA scan result normal 6. ECG: normal sinus rhythm 7. Hip Pain 8. Screening for Malignant Neoplasms of colon 9. Back pain (SNOMED CT 832208753) 10. Hypothyroidism (SNOMED CT 18206173) 11. Hyperlipidemia (SNOMED CT 60507853) 12. Beta Thalassemia Minor 13. Knee Joint replacement Status (Prosthetic or Artificial Device) 14. Depression (SNOMED CT 29042268)*NOTE: REVIEWED ABOVE NOTING NEW CONCERN- 15. Hypothyroidism (SNOMED CT 84947784) 16. Hyperlipidemia (SNOMED CT 65422544) 17. beta thalassemia (SNOMED CT 49541689) 18. Knee Joint replacement Status (Prosthetic or Artificial Device) 19. Depression (SNOMED CT 51882020) 20. Heartburn (SNOMED CT 48526170) *NOTE: REVIEWED ABOVE NOTING NEW CONCERN- CHANGES SINCE PREVIOUS VISIT*NOTE: REVIEWED ABOVE NOTING NEW CONCERN- CHANGES SINCE PREVIOUS VISIT *NOTE: SEE # 1-2-3-4-5 ABOVE Family History: Non-contributory Social History: N/A *NOTE: DENIES ANY RECENT CHANGES IN MEDS-SEE RECONCILIATION PERFORMED THIS DATE BELOW TOBACCO USE= NONE Allergies:ERYTHROMYCIN, NEURONTIN, FLOMAX Previous Surgery/Hospitalization:N/A HEIGHT:224 lb [101.8 kg] (09/24/2019 15:43) WEIGHT:68 in [172.7 cm] (09/24/2019 15:43) REVIEW OF SYSTEMS: DEFERRED BEING NON-CONTRIBUTORY TO THE CC & I HAVE REVIEWED THE PCP NOTES & PMH O: DERMATOLOGICAL: Exam reveals skin color & text to be WNL. Temp is diminished warm to cool proximal to distal. There is absence of hair noted. Nails are thickened yellow-brown discolored and displaying flakiness, crumbling, sub- ungual debris and rubor in the affected nail grooves. The affected nails are 1-2bilat. There are no superficial painful hyperkeratotic lesions noted at this time. There are no rashes, ulcers, indurations or nodules noted. VASCULAR: Exam reveals DP & PT pulses to be +2 equal & symmetrical bilateral. CFT is >3 sec x 10. There are no superficial varices noted and there is + 2 edema noted. MUSCULOSKELETAL: Exam reveals muscle strength and tone to be equal & symmetrical bilaterally & diminished for an individual of this age and present physical-medical condition. There is pain free ROM at all joints distal to and including the ankle. NEUROLOGICAL: Exam reveals S/D, vibratory-ABSENT BILATERAL, light touch & proprioception sensations to be equal & symmetrical bilaterally & diminished for an individual of this age and present physical-medical status. Protective sensation utilizing a [place]-Bre lOg monofilament is 3/10 BILATERAL BIOMECHANICAL: Exam is deferred at this time due to the presence of pain. 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 All care rendered without complications & the patient is progressing well after podiatric care this date and will Return to Clinic: 09/11 @ 1pm *DISCUSSED NEW PROTOCOLS AND CALLED MARCELINA TODAY FOR RESCHEDULING-W/C I DISCUSSED THE FINDINGS & PLAN WITH PATIENT (UNCHANGED SINCE PREVIOUS VISIT) & PATIENT AGREES AND UNDERSTANDS PLAN Medication Reconciliation: PERFORMED TODAY - SEE BELOW. Outpatient: Has the patient been taking medications as documented in the EMLR? YES: The patient has been taking medications as documented in the EMLR. Essential Medication List for Review used to complete this medication reconciliation. INCLUDED IN THIS LIST: Alphabetical list of active outpatient prescriptions dispensed from this [facility] (local) and dispensed from another [place] or [facility] facility (remote) as well as inpatient orders [...] whether with a VA or non-VA provider. JLV Link Data on this list may not be complete. Please check JLV. Allergies/ADRs (Tool #5) FACILITY ALLERGY/ADR -------- [facility] [place] [facility] ERYTHROM[facility]CIN [facility] [place] FLOMAX [facility] [place] [facility] NEURONTIN [facility] ERYTHROMYCIN Med Recon NoGlossary (Tool #1) INCLUDED IN THIS LIST: Alphabetical list of active outpatient prescriptions dispensed from this [place] (local) and dispensed from another [place] or [facility] facility (remote) as well as inpatient orders (local pending and active), local clinic medications, locally documented non-VA medications, and local prescriptions that have or been discontinued in the past 90 days. Non-VA Meds Last Documented On: Mar 11, 2022 NOTE The display of VA prescriptions dispensed from another [place] or [facility] facility (remote) is limited to active outpatient prescription entries matched to National Drug File at the originating site and may not include some items such as investigational drugs, compounds, etc. NOT INCLUDED IN THIS LIST: Medications self-entered by the patient into personal health records (i.e. [employer]) are NOT included in this list. Non-VA medications documented outside this [place], remote inpatient orders (regardless of status) and remote clinic medications are NOT included in this list. The patient and provider must always discuss medications the patient is taking, regardless of where the medication was dispensed or obtained. OUTPT AMOXICILLIN 500MG CAP (Status = Active) TAKE FOUR CAPSULES BY MOUTH ONE TIME ONE HOUR PRIOR TO DENTAL APPOINTMENTS Rx# [id number] Last Released: 07/14/23 Qty/Days Supply: 10/23 Rx Expiration Date: 05/06/24 Refills Remainin Indication: FOR DENTAL PREMEDICATION OUTPT BISACODYL 5MG EC TAB (Status = ) TAKE FOUR TABLETS BY MOUTH ONCE FOR BOWELS - LAXATIVE Rx# [id number] Last Released: 01/20/24 Qty/Days Supply: 10/23 Rx Expiration Date: 02/12/24 Refills Remainin OUTPT CHOLECALCIF 25MCG (D3-1,000UNIT) TAB (Status = Active) TAKE ONE TABLET BY MOUTH ONCE DAILY FOR VITAMIN SUPPLEMENTATION Rx# [id number] Last Released: 03/01/24 Qty/Days Supply: Rx Expiration Date: 11/16/24 Refills Remainin Indication: FOR VITAMIN D DEFICIENCY OUTPT CHOLESTYRAMINE 4GM/9GM ORAL PWD PKT (Status = Active) TAKE 1 PACKET BY MOUTH ONCE DAILY Rx# [id number] Last Released: 02/03/24 Qty/Days Supply: 60/60 Rx Expiration Date: 11/11/24 Refills Remainin OUTPT CYANOCOBALAMIN 1000MCG TAB (Status = Active) TAKE ONE TABLET BY MOUTH ONCE DAILY FOR VITAMIN SUPPLEMENTATION Rx# [id number] Last Released: 03/20/24 Qty/Days Supply: Rx Expiration Date: 10/20/24 Refills Remainin Indication: FOR PREVENTION OF VITAMIN B12 DEFICIENCY OUTPT FERROUS SULFATE 325MG TAB (Status = Discontinued) TAKE ONE TABLET BY MOUTH ONCE DAILY TO SUPPLEMENT IRON Rx# [id number] Last Released: 12/15/23 Qty/Days Supply: Rx Expiration Date: 07/22/24 Refills Remainin OUTPT FERROUS SULFATE 325MG TAB (Status = Active) TAKE ONE TABLET BY MOUTH ONCE DAILY TO SUPPLEMENT IRON Rx# [id number] Last Released: 04/17/24 Qty/Days Supply: Rx Expiration Date: 04/15/25 Refills Remainin OUTPT LEVOTHYROXINE NA (SYNTHROID) 125MCG TAB (Status = Active) TAKE ONE TABLET BY MOUTH EVERY MORNING 30 MINUTES BEFORE BREAKFAST FOR THYROID TAKE ON AN EMPTY STOMACH WITH A FULL GLASS OF WATER Rx# [id number] Last Released: 02/09/24 Qty/Days Supply: 90 Rx Expiration Date: 08/22/24 Refills Remainin Indication: FOR THYROID OUTPT LIDOCAINE 5% OINT (Status = Active) APPLY SMALL AMOUNT TOPICALLY ONCE DAILY NEEDED FOR ITCHING Rx# [id number] Last Released: 04/13/24 Qty/Days Supply: 70/90 Rx Expiration Date: 01/31/25 Refills Remainin Indication: FOR ITCHING Non-VA LORAZEPAM 0.5MG TAB TAKE ONE TABLET BY MOUTH ONCE DAILY NEEDED Medication prescribed by Non-VA provider. OUTPT MAGNESIUM OXIDE 420MG TAB (Status = Active) TAKE ONE TABLET BY MOUTH ONCE DAILY Rx# [id number] Last Released: 03/01/24 Qty/Days Supply: 90 Rx Expiration Date: 11/09/24 Refills Remainin Indication: Migraine Non-VA MARIJUANA MISCELLANEOUS USE DIRECTED OUTPT MULTIVIT/OPHTH AREDS2/LUTE/ZEAX CAP/TAB (Status = Active) TAKE 1 CAPSULE BY MOUTH TWICE DAILY IN THE MORNING AND EVENING, WITH FOOD Rx# [id number] Last Released: 03/01/24 Qty/Days Supply: 120/60 Rx Expiration Date: 08/22/24 Refills Remainin OUTPT OMEPRAZOLE 20MG EC CAP (Status = ) TAKE ONE CAPSULE BY MOUTH TWICE DAILY NEEDED FOR GASTROESOPHAGEAL REFLUX DISEASE Rx# [id number] Last Released: 12/15/23 Qty/Days Supply: 180/90 Rx Expiration Date: 02/25/24 Refills Remainin Indication: FOR GASTROESOPHAGEAL REFLUX DISEASE OUTPT PANTOPRAZOLE NA 40MG EC TAB (Status = Discontinued) TAKE ONE TABLET BY MOUTH TWICE DAILY Rx# [id number] Last Released: 03/12/24 Qty/Days Supply: 60/30 Rx Expiration Date: 12/30/24 Refills Remainin OUTPT PANTOPRAZOLE NA 40MG EC TAB (Status = Active) TAKE ONE TABLET BY MOUTH ONCE DAILY Rx# [id number] Last Released: 04/16/24 Qty/Days Supply: 30/30 Rx Expiration Date: 04/12/25 Refills Remainin OUTPT PAROXETINE HCL 40MG TAB (Status = Active) TAKE ONE TABLET BY MOUTH DAILY Rx# [id number] Last Released: 02/02/24 Qty/Days Supply: 90/ Rx Expiration Date: 01/31/25 Refills Remainin OUTPT POLYETHYLENE GLYCOL 3350 ORAL PWDR (Status = ) TAKE CONTENTS OF BOTTLE BY MOUTH ONCE DIRECTED BY PROVIDER - DISSOLVE CONTENTS BEFORE DRINKING Rx# [id number] Last Released: 01/20/24 Qty/Days Supply: 476/2 Rx Expiration Date: 02/12/24 Refills Remainin Non-VA PROBIOTIC (CULTURELLE DIGESTIVE DAILY) CAP/TAB TAKE BY MOUTH ONCE DAILY Medication prescribed by Non-VA provider. OUTPT SIMVASTATIN 40MG TAB (Status = Active) TAKE ONE-HALF TABLET BY MOUTH AT BEDTIME FOR CHOLESTEROL Rx# [id number] Last Released: 03/01/24 Qty/Days Supply: Rx Expiration Date: 08/22/24 Refills Remainin Indication: FOR HIGH CHOLESTEROL OUTPT SODIUM FLUORIDE 1.1% TOOTHPASTE (Status = Active) BRUSH SMALL AMOUNT TO TEETH TWICE DAILY FOR TOOTH DECAY PREVENTION Rx# [id number] Last Released: 07/12/23 Qty/Days Supply: 60 Rx Expiration Date: 07/08/24 Refills Remainin Indication: FOR TOOTH DECAY PREVENTION OUTPT SUCRALFATE 1GM TAB (Status = Active) TAKE ONE TABLET BY MOUTH TWICE DAILY ON AN EMPTY STOMACH. TAKE UPON AWAKENING AND BEFORE BED Rx# [id number] Last Released: 03/20/24 Qty/Days Supply: Rx Expiration Date: 01/20/25 Refills Remainin OUTPT TAMSULOSIN HCL 0.4MG CAP (Status = ) TAKE ONE CAPSULE BY MOUTH AT BEDTIME DO NOT TAKE WITH SILDENAFIL Rx# [id number] Last Released: 02/05/23 Qty/Days Supply: Rx Expiration Date: 02/01/24 Refills Remainin SUPPLIES /jose cruz/ COURTNEY BLOOM DPM TAR HEATER OPERATOR Signed: 04/24/2024 13:24 COURTNEY BLOOM [place]
--- OUTSIDE RECORDS SUMMARY | 2024-07-26 16:59 | XMS_ITS | Encounter Summary ---
Author Name [facility] [place] Address [address] [place] [address] Care Team Providers Care Processor Helper Name Role Phone WAYNE WHEATLEY Primary [...] Name Patient's Relationship to Policy [facility] MEDICARE ADVANTAGE [facility] ([facility] Aug 25, 2001 [facility] ([facility] [id number] DUYENADRIANA JOHN PATIENT MEDICARE ([facility]) MEDICARE (M) PART A Oct 23, 2016 PART A [id number] QUE GELLER PATIENT MEDICARE ([facility] MEDICARE (M) PART B Oct 23, 2016 PART B [id number] QUE GELLER PATIENT MEDICARE (WN) MEDICARE (M) PART B Jul 25, 2011 PART B [id number] QUE EGLLER PATIENT MEDICARE ([facility] MEDICARE (M) PART B Jul 25, 2011 PART B [id number] QUE GELLER PATIENT MEDICARE ([facility]NR) MEDICARE (M) PART B Jul 25, 2011 PART B [id number] QUE GELLER PATIENT MEDICARE ([facility]NR) MEDICARE (M) PART A Apr 24, 2004 PART A [id number] QUE GELLER PATIENT MEDICARE ([facility]NR) MEDICARE (M) PART A Apr 24, 2004 PART A [id number] QUE GELLER PATIENT MEDICARE ([facility]NR) MEDICARE (M) PART A Apr 24, 2004 PART A [id number] QUE GELLER PATIENT Selected Encounter This section includes the information on record at [place] for the Encounter. Date/Time Encounter Type Encounter Description Reason Pro vider Source Apr 10, 2024 06:14 PM Outpatient Encounter ADMIN PAT ACTIVTIES (MASNONCT) [...] - MEDICINE [place] [facility] [facility] Apr 24, 2024 01:00 PM AMBULATORY - MEDICINE [facility] Apr 25, 2024 04:00 PM AMBULATORY - NONE [place] [facility] [place] [facility] Apr 26, 2024 08:50 AM AM[place]ULATORY [place]ICINE [place] [facility] [place] [facility] May 14, 2024 03:00 PM AMBULATORY - [facility]ICINE [facility] [place] [facility] May 14, 2024 03:30 PM AM[place] [facility] [facility] May 21, 2024 09:00 AM AM[place]UL[place]ORY [place] [facility] [place] [facility] Jun 26, 2024 02:30 PM AM[place] [facility] [place] [facility] Jun 26, 2024 03:00 PM AM[place]UL[facility] [place]INE [place] [facility] [place] [facility] Jun 26, 2024 03:15 PM AM[facility]ULATORY - [place]ICINE [place] [facility] [place] [facility] Jul 03, 2024 04:00 PM [...] of theEncounter. The data comes from all [place] treatment facilities. Test Date/Time Test Type Test Details Facility Name Mar 22, 2024 12:13 PM Consult Order COMMUNITY CARE-MRI Cons Filling Separator's Choice [place] Lab Results: +/- 30 days of the [...] Range Comment Mar 22, 2024 11:37 AM [place] THYROID TOTAL T3 Specimen Type: SERUM No comment entered. Ordering Provider: WAYNE WHEATLEY Report Released Date/Time: Mar 22, 2024 10:50 AM Reporting [facility] [address] [address] Performing [facility]: [facility] [address] [address] THYROID TOTAL T3 102.12 ng/dL 35-193 Mar 22, 2024 11:37 AM [place] THYROID T4 FREE(FT4) (WROX) Specimen Ty pe: SERUM No comment entered. Ordering Provider: WAYNE WHEATLEY Report Released Date/Time: Mar 22, 2024 10:50 AM Reporting Lab: [facility] [address] [address] Performing Lab: [facility] [address] [address] THYROID T4 FREE(FT4) (WROX) 0.99 ng/dL 0.6-1.6 Mar 22, 2024 11:37 AM [place] TSH Specimen Type: SERUM No comment entered. Ordering Provider: WAYNE WHEATLEY Report Released Date/Time: Mar 22, 2024 10:50 AM Reporting Lab: [facility] [address] [address] Performing Lab: [facility] [address] [address] TSH 6.24 u[IU]/mL H 0.35-5.00 Mar 22, 2024 11:37 AM [place] CBC AND DIFF (AUTO) Specimen Type: BLOOD No comment entered. Ordering Provider: WAYNE WHEATLEY Report Released Date/Time: Mar 22, 2024 10:50 AM Reporting Lab: [facility] [address] [address] Performing Lab: [facility] [address] [address] WBC 6.41 10*3/uL 4.50-11.00 RBC 4.43 10*6/uL [...] Current Smoking Status Comment Facil jay Mar 22, 2024 12:43 PM VA-TOBACCO NEVER USED [facility] Tobacco Use History This section includes a history of the smoking, or tobacco-related health factors, that were collected on or before the date of the Encounter. The data comes from the [place] facility where the Encounter took place. Date/Time Smoking Status/Tobacco Use Comment F acility Mar 26, 2021 02:25 PM VA-TOBACCO NEVER USED [facility] Advance Directives: All historical and [...] Nov 04, 2016 ADVANCE DIRECTIVE RONY URRUTIA [facility] Encounter Notes: All associated encounter notes This section contains the clinical notes associated to the Encounter. Date/Time Encounter Note(s) Provider Source Apr 10, 2024 06:14 PM PHARMACY NOTE: LOCAL TITLE: V1 PHARMACY CUSTOMER CARE MEDICATION RENEWAL STANDARD TITLE: PHARMACY NOTE DATE OF NOTE: APR 10, 2024@18:14 ENTRY DATE: APR 10, 2024@18:14:22 AUTHOR: KEVIN DORADO EXP COSIGNER: URGENCY: STATUS: COMPLETED Date: Mar Division: [place] Pt referred by Pharmacy Call Center for medication renewal: Non-controlled/maintenanc e medication Medications requested: [id number] FERROUS SULFATE 325MG TAB Defer to primary care provider To be mailed . Please review and renew if appropriate. *This note was generated by [facility] Pharmacy Customer Care. If you have any questions or need assistance, do not contact this author. Please refer all questions to your local, on-site pharmacy departments. /jose cruz/ KEVIN DORADO CPhT CONTRACT DRIVER, [place]/PHARMACY CUSTOMER CARE Signed: 04/10/2024 18:14 Receipt Acknowledged By: 04/14/2024 08:06 /jose cruz/ PAVEL BOGGS, YENY NURSE PRACTITIONER for WAYNE WHEATLEY 04/11/2024 09:18 /es/ BONNIE WILLIS, RN REGISTERED NURSE KEVIN DORADO [place] [facility]
--- OUTSIDE RECORDS SUMMARY | 2024-07-26 16:59 | XMS_ITS | Encounter Summary ---
Author Name [facility] [place] Organization [place] Address [address] [place] [address] Care Team Providers Care Alternative Dispute Resolution Mediator Name Role Phone WAYNE WHEATLEY Primary Care [...] Relationship to Policy [facility]) MEDICARE ADVANTAGE [facility] ([facility]) Aug 25, 2001 [facility] ([facility]) [id number] ADRIANA GELLER PATIENT MEDICARE ([facility]) MEDICARE (M) PART A Oct 23, 2016 PART A [id number] QUE GELLER PATIENT MEDICARE ([facility]) MEDICARE (M) PART B Oct 23, 2016 PART B [id number] QUE GELLER PATIENT MEDICARE ([facility]) MEDICARE (M) PART B Jul 25, 2011 PART B [id number] 97A QUE GELLER PATIENT MEDICARE ([facility]) MEDICARE (M) PART B Jul 25, 2011 PART B [id number] 97A QUE GELLER PATIENT MEDICARE (WNR) MEDICARE (M) PART B Jul 25, 2011 PART B [id number] QUE GELLER PATIENT MEDICARE (WNR) MEDICARE (M) PART A Apr 24, 2004 PART A [id number] [phone] QUE GELLER PATIENT MEDICARE (WNR) MEDICARE (M) PART A Apr 24, 2004 PART A [id number] 97A QUE GELLER PATIENT MEDICARE (WNR) MEDICARE (M) PART A Apr 24, 2004 PART A [id number] QUE GELLER PATIENT Selected Encounter This section includes the information on record at [place] for the Encounter. Date/Time Encounter Type Encounter Description Reason Pro vider Source Nov 11, 2023 12:00 AM Outpatient Encounter COMMUNITY CARE CONSULT IHE Encounter Template Text not used by [place] Plan of Treatment: Future Appointments (+ 6 months) and Future Tests (+/- 45 days) The Plan of Treatment section includes future care activities for the patient from all [place] treatmentfacilities. This section includes future appointments and [...] 18, 2023 02:15 PM AMBULATORY - MEDICINE [place] C [facility] [place] [facility] Mar 22, 2024 11:00 AM AMBULATORY - MEDICINE [facility] Apr 11, 2024 01:00 PM AMBULATORY - MEDICINE [place] C [facility] [place] [facility] Apr 24, 2024 01:00 PM AMBULATORY - MEDICINE [facility] Apr 25, 2024 04:00 PM AMBULATORY - NONE [place] [facility] [place] [facility] Apr 26, 2024 08:50 AM AMBULATORY - MEDICINE [facility] N[facility]L [facility] Lab Results: +/- 30 days of the encounter This section includes the Chemistry and Hematology Lab Results on record with [place] for the patient. Radiology Reports and Pathology Reports are provided separately, in subsequent sections. Lab Results This section contains the Chemistry/Hematology Results that were resulted 30 days before or 30 daysafter the date of the Encounter. Date/Time Source Result Type Result - Unit Interpretation Reference Range Comment November 23, 2023 01:22 PM [place] FERRITIN Specimen Type: SERUM No comment entered. Ordering Provider: BHAVANI BYRD Report Released Date/Time: Oct 05, 2023 03:45 PM Reporting Lab: [address] [address] Performing Lab: [address] [address] FERRITIN 213 ng/mL 20-300 November 23, 2023 01:22 PM [place] VITAMIN D (25-OH) Specimen Type: SERUM No comment entered. Ordering Provider: BHAVANI BYRD Report Released Date/Time: Oct 05, 2023 03:45 PM Reporting Lab: [address] [address] Performing Lab: [address] [address] VITAMIN D (25-OH) 26 ng/mL 20-50 November 23, 2023 01:22 PM [place] IRON & TIBC PANEL Specimen Type: SERUM No comment entered. Ordering Provider: BHAVANI BYRD Report Released Date/Time: Oct 05, 2023 03:45 PM Reporting Lab: [address] [address] Performing Lab: [address] [address] TIBC 268 ug/dL 204-475 IRON 40 ug/dL 40-160 Transferrin Saturation 14.9 L 20.0-50.0 November 23, 2023 01:22 PM [place] HEMOGLOBIN A1C PANEL Specimen Type: BLOOD Comment: [...] Oct 05, 2023 03:45 PM Reporting [facility]: [facility] [address] [address] Performing [facility]: [facility] [address] [address] HEMOGLOBIN A1C 5.5 4.0-5.6 November 23, 2023 01:22 PM [place] TSH Specimen Type: SERUM No comment entered. Ordering Provider: BHAVANI BYRD Report Released Date/Time: Oct 05, 2023 03:45 PM Reporting Lab: [facility] [address] [address] Performing Lab: [facility] [address] [address] TSH 7.13 u[IU]/mL H 0.35-5.00 November 23, 2023 01:22 PM [place] BASIC METABOLIC PANEL (non-fasting) Spe cimen Type: SERUM No comment entered. Ordering Provider: BHAVANI BYRD Report Released Date/Time: Oct 05, 2023 03:45 PM Reporting Lab: [facility] [address] [address] Performing Lab: [facility] [address] UREA NITROGEN 30 mg/dL H 7-25 GLUCOSE 137 mg/dL H 65-100 SODIUM 137 mmol/L 135-145 POTASSIUM 4.3 mmol/L 3.5-5.0 CHLORIDE 104 mmol/L 100-110 CO2 23 meq/L 20-30 CREATININE, Serum 1.10 mg/dL 0.50-1.40 eGFR(CKD-EPI 2020) 71 mL/min >60 November 23, 2023 01:22 PM [place] LIVER FUNCTION Specimen Type: SERUM No comment entered. Ordering Provider: BHAVANI BYRD Report Released Date/Time: Oct 05, 2023 03:45 PM Reporting Lab: [facility] [address] [address] Performing Lab: [address] [address] PROTEIN,TOTAL 7.2 g/dL 6.0-8.3 ALBUMIN 3.9 g/dL 3.5-5.0 ALKALINE PHOSPHATASE 78 U/L 40-150 AST 21 U/L 5-34 ALT 14 U/L BILIRUBIN, TOTAL 0.4 mg/dL 0.2-1.2 November 23, 2023 01:22 PM [place] LIPID PANEL, NON FASTING Specimen Type: SERUM No comment entered. Ordering Provider: BHAVANI BYRD Report Released Date/Time: Oct 05, 2023 03:45 PM Reporting Lab: [address] [address] Performing Lab: [address] [address] CHOLESTEROL 137 mg/dL TRIGLYCERIDE 113 mg/dL 0-150 LDL calculated 72 mg/dL 0-129 CHOL/HDL 3.3 HDL CHOLESTEROL 42 mg/dL 40-60 November 23, 2023 01:22 PM [place] CBC AND DIFF (AUTO) Specimen Type: BLOOD No comment entered. Ordering Provider: BHAVANI BYRD Report Released Date/Time: Oct 05, 2023 03:45 PM Reporting Lab: [address] [address] Performing Lab: [address] [address] WBC 6.91 10*3/uL 4.50-11.00 RBC 4.81 10*6/uL 4.23-5.66 HGB 11.0 g/dL L 12.8-17 HCT 34.6 L 39.2-50.4 MCV 71.9 fL L 82-99 MCHC 31.8 g/dL 30.8-35.1 PLT 310 10*3/uL 140-360 RDW-CV 14.8 12.0-16.0 [place], Abs 0.71 10*3/uL 0.30-1.10 MCH 22.9 pg L 26.2-32.6 Neut % 53.5 43.7-75.8 Lymph % 27.4 14.0-42.3 [place] % 10.3 5.1-13.7 Eos % 7.2 H 0.4-6.8 Baso % 1.2 0.1-2.0 Neut, Abs 3.70 10*3/uL 2.20-7.60 Lymph, Abs 1.89 10*3/uL 1.00-3.20 Eos, Abs 0.50 10*3/uL H 0.03-0.44 Baso, Abs 0.08 10*3/uL 0.01-0.13 Immature Gran % 0.4 0.0-0.7 Immature Gran, Abs 0.03 10*3/uL 0.00-0.06 November 23, 2023 01:22 PM [place] THYROID TOTAL T3 Specimen Type: SERUM Comment: ref range 35-193 Ordering Provider: WAYNE WHEATLEY Report Released Date/Time: Nov 16, 2023 02:28 PM Reporting Lab: [facility] [address] [facility] [address] Performing Lab: [facility] [address] [facility] [address] THYROID TOTAL T3 109.30 ng/dL November 23, 2023 01:22 PM [place] THYROID T4 FREE(FT4) (WROX) Specimen Ty pe: SERUM No comment entered. Ordering Provider: WAYNE WHEATLEY Report Released Date/Time: Nov 16, 2023 02:28 PM Reporting Lab: [address] [address] Performing Lab: [facility] [address] [facility] [address] THYROID T4 FREE(FT4) (WROX) 0.90 ng/dL 0.6-1.6 November 23, 2023 01:22 PM [place] CALCIUM Specimen Type: SERUM No comment entered. Ordering Provider: WAYNE WHEATLEY Report Released Date/Time: Nov 16, 2023 02:28 PM Reporting Lab: [facility] [address] [facility] [address] Performing Lab: [address] [address] CALCIUM 9.4 mg/dL 8.5-10.2 November 23, 2023 01:22 PM [place] TSH Specimen Type: SERUM No comment entered. Ordering Provider: WAYNE WHEATLEY Report Released Date/Time: Nov 16, 2023 02:28 PM Reporting Lab: [facility] [address] [facility] [address] Performing [facility]: [facility] [address] [facility] [address] TSH 7.25 u[IU]/mL H 0.35-5.00 Social History: [...] 26, 2021 02:25 PM VA-TOBACCO NEVER USED [facility] Advance Directives: All historical [...] Provider Source Nov 04, 2016 ADVANCE DIRECTIVE ROYN URRUTIA [facility] Encounter Notes: All associated encounter notes This section contains the clinical notes associated to the Encounter. Date/Time Encounter Note(s) Provider Source Nov 11, 2023 12:00 AM NONVA CONSULT: LOCAL TITLE: COMMUNITY CARE-CONSULT RESULT NOTE STANDARD TITLE: NONVA CONSULT DATE OF NOTE: NOV 11, 2023 ENTRY DATE: APR 08, 2024@10:30:12 AUTHOR: AURA SIMMONS EXP COSIGNER: URGENCY: STATUS: COMPLETED VistA Imaging - Scanned Document SCANNED DOCUMENT SIGNATURE NOT REQUIRED Electronically Filed: 04/08/2024 by: AURA GUTIÉRREZ [facility]
--- OUTSIDE RECORDS SUMMARY | 2024-07-26 16:59 | XMS_ITS ---
Author Name [facility] [place] Organization [place] Address [address] [place] [id number] Care Team Providers Care Foot Doctor Name Role Phone WAYNE WHEATLEY Primary Care [...] Name Patient's Relationship to Policy [facility]) MEDICARE ADVANTAGE [facility] ([facility]) Aug 25, 2001 [facility] ([facility]) [id number] [phone] DOMADRIANA SALINAS JOHN PATIENT MEDICARE ([facility]) MEDICARE (M) PART A Oct 23, 2016 PART A [id number] QUE GELLER PATIENT MEDICARE ([facility]) MEDICARE (M) PART B Oct 23, 2016 PART B [id number] QUE GELLER PATIENT MEDICARE ([facility]) MEDICARE (M) PART B Jul 25, 2011 PART B [id number] QUE GELLER PATIENT MEDICARE ([facility]) MEDICARE (M) PART B Jul 25, 2011 PART B [id number] 97A QUE GELLER PATIENT MEDICARE (WNR) MEDICARE (M) PART B Jul 25, 2011 PART B [id number] [phone] QUE GELLER PATIENT MEDICARE (WNR) MEDICARE (M) PART A Apr 24, 2004 PART A [id number] [phone] QUE GELLER PATIENT MEDICARE (WNR) MEDICARE (M) PART A Apr 24, 2004 PART A [id number] QUE GELLER PATIENT MEDICARE (WNR) MEDICARE (M) PART A Apr 24, 2004 PART A [id number] [phone] QUE GELLER PATIENT Selected Encounter This section includes the information on record at [place] for the Encounter. Date/Time Encounter Type Encounter Description Reason Provider Source Apr 25, 2024 04:00 PM CASE MGMT-[facility] DENTAL ICD-10-CM K03.6 Deposits [accretions] on teeth NATHALY,REAGAN K IHE Encounter Template Text not used by [place] Assessments - Encounter Diagnoses This section includes the primary and secondary diagnoses documented for the Encounter. Date/Time Primary/Secondary Diagnosis Diagnosis Name Provider Source Apr 25, 2024 04:46 PM PRIMARY Deposits [accretions] on teeth NATHALY,REAGAN K [facility] [place] [place] [facility] Plan of Treatment: Future Appointments (+ 6 months) and Future Tests (+/- 45 days) The Plan of Treatment section includes future care activities for the patient from all [place] treatmentfacilities. This section includes future appointments and future orders which are active, pending or scheduled. Future Appointments This section includes appointments that were scheduled to occur 6 months from the date of the Encounter, up to a maximum of 20 appointments. The data comes from all [place] treatment facilities. Appointment Date/Time Appointment Type Appointme nt Facility Name Apr 26, 2024 08:50 AM AMBULATORY - MEDICINE [facility] [place] [facility] May 14, 2024 03:00 PM AMBULATORY - MEDICINE [facility] [place] [facility] May 14, 2024 03:30 PM AMBULATORY - MEDICINE [place] C [place] [facility] May 21, 2024 09:00 AM AMBULATORY - MEDICINE [place] [facility] Jun 26, 2024 02:30 PM AMBULATORY - MEDICINE [place] C [place] [facility] Jun 26, 2024 03:00 PM AMBULATORY - MEDICINE [place] [facility] Jun 26, 2024 03:15 PM AMBULATORY - MEDICINE [place] [facility] Jul 03, 2024 04:00 PM [facility]UL[facility]ORY - [facility]IC[facility] Sep 04, 2024 04:00 PM [facility] - [facility]IC[facility] Sep 11, 2024 01:00 PM AMBULATORY - MEDICINE [place] Oct 24, 2024 04:00 PM [facility]ONE [place] [facility] Active, Pending, and Scheduled Orders This section includes a listing of several types of active, pending, and scheduled orders, including clinic medications orders, diagnostic test orders, procedure orders and consult orders; where the start date of the order is 45 days before the date of the Encounter or 45 days after the date of theEncounter. The data comes from all [place] treatment facilities. Test Date/Time Test Type Test Details Facility Name Mar 22, 2024 12:13 PM Consult Order COMMUNITY CARE-MRI Cons Security Monitor's Heriberto [place] Social History: Smoking Status (Most current) and Tobacco Use (All prior to encounter date) This section includes the most current, and the historical, smoking and tobacco- related health factors from the [place] facility where the Encounter took place. Current Smoking Status This section includes the most current smoking, or tobacco-related health factor, from the [place] facility where the Encounter took place. Date/Time Current Smoking Status Comment Catie thompson Mar 22, 2024 12:43 PM VA-TOBACCO NEVER USED [facility] Tobacco Use History This section includes a history of the smoking, or tobacco-related health factors, that were collected on or before the date of the Encounter. The data comes from the [place] facility where the Encounter took place. Date/Time Smoking Status/Tobacco Use Comment Gaby carrillo Mar 26, 2021 02:25 PM VA-TOBACCO NEVER USED [facility] Advance Directives: All historical and current Section Date Range: From patient's date of to the date document was created. This section includes ALL of a patient's completed or amended [place] Advance and Rescinded Directives. The entries below indicate that a directive exists for the patient, but an actual copy is not included with this document. The data comes from all [place] facilities. Date Advance Directives Provider Source Nov 04, 2016 ADVANCE DIRECTIVE RONY URRUTIA [place] CNTR L [facility] [place] [facility] Encounter Notes: All associated encounter notes This section contains the clinical notes associated to the Encounter. Date/Time Encounter Note(s) Provider Source Apr 25, 2024 04:45 PM DENTISTRY NOTE: LOCAL TITLE: DENTAL NOTE STANDARD TITLE: DENTISTRY NOTE DATE OF NOTE: APR 25, 2024@16:45 ENTRY DATE: APR 25, 2024@16:46:20 AUTHOR: REAGAN ANDERSEN COSIGNER: URGENCY: STATUS: COMPLETED Patient Name: KAM GELLER, : 1950, Age: 73 Visit: S: Apr 25, 2024@16:00 [facility] DENTAL RDH 1 PM. Primary PCE Diagnosis: K03.6 (Deposits [accretions] on teeth). Dental Category: 15-OPC, Class IV. Treatment Status: Maintenance. Completed Care: (D1110) DENTAL PROPHYLAXIS ADULT. DX: K03.6 Deposits [Accretions] on Teeth (D9932) CLEAN/INSPECT MAX COMP DENT. DX: K03.6 Deposits [Accretions] on Teeth (D1206) TOPICAL FLUORIDE VARNISH. DX: K03.6 Deposits [Accretions] on Teeth (D1330) ORAL HYGIENE INSTRUCTION. DX: K03.6 Deposits [Accretions] on Teeth (D9994) CASE MGMT-ORAL HEALTH LIT. DX: K03.6 Deposits [Accretions] on Teeth Dental Alerts: amoxicillin premed (2000mg) for TKR [...] INSTRUMENT PACK CHECKED AND CONFIRMED CC: no concerns PREMEDICATION: Patient stated he took premed. PAST MEDICAL HISTORY: Reviewed, no contraindications for treatment. LAST RADIOGRAPHS: PA's : 07/08/23 NEW RADIOGRAPHS: Not due SOFT TISSUE SCREENING: no abnormalities noted EXAMINATION: Not due ORAL HYGIENE ASSESSMENT: generalized light plaque no stain PERIODONTAL ASSESSMENT: no calculus generalized light inflammation localized very light bleeding generalized recession Partial/Denture: Patient said denture and partial fit well on the top. He takes them out at night. Looks well taken care of. gave denture brush and new denture case REVIEWED ORAL HEALTH REPORT: CARIES RISK: moderate GUM DISEASE: low ORAL CANCER RISK: n/a DENTAL TREATMENT PROVIDED: PROPHYLAXIS - hand scaling, piezo, slovak, floss TOPICAL FLUORIDE APPLICATION - Varnish PRE-RINSE WITH CREST RINSE ORAL HYGIENE INSTRUCTIONS GIVEN TO PATIENT: Patient brushes twice a day with an electric toothbrush. Discussed brushing 2 times a day for 2 minutes each and flossing daily. Discussed angling bristles into gumlines to remove plaque and bacteria. Gave end tufted brush for around crown margins. DISPOSITION: 6 MONTHS RECARE NEXT VISIT: dominick rain bwx, demario /jose cruz/ REAGAN ANDERSEN [facility], DENTAL SERVICE Signed: 04/25/2024 16:46 REAGAN ANDERSEN [facility] [place] [facility]
--- OUTSIDE RECORDS SUMMARY | 2024-07-26 16:59 | XMS_ITS | Encounter Summary ---
Author Name Department of Vetera [place] Affairs ([place]) Organization Department of [place] Address [address] [place] [address] Care Team Providers Care Franchise Business Consultant Name Role Phone WAYNE WHEATLEY Primary Care [...] Name Patient's Relationship to Policy [facility]) MEDICARE ADVANTAGE [facility] ([facility]) Aug 25, 2001 [facility] ([facility]) [id number] DOMADRIANA SALINAS JOHN PATIENT MEDICARE ([facility]) MEDICARE (M) PART A Oct 23, 2016 PART A [id number] QUE GELLER PATIENT MEDICARE ([facility]) MEDICARE (M) PART B Oct 23, 2016 PART B [id number] QUE GELLER PATIENT MEDICARE ([facility]) MEDICARE (M) PART B Jul 25, 2011 PART B [id number] QUE GELLER PATIENT MEDICARE ([facility]) MEDICARE (M) PART B Jul 25, 2011 PART B [id number] [phone] QUE GELLER PATIENT MEDICARE (WNR) MEDICARE (M) PART B Jul 25, 2011 PART B [id number] [id number] QUE GELLER PATIENT MEDICARE (WNR) MEDICARE (M) PART A Apr 24, 2004 PART A [id number] [phone] QUE GELLER PATIENT MEDICARE (WNR) MEDICARE (M) PART A Apr 24, 2004 PART A [id number] QUE GELLER PATIENT MEDICARE (WNR) MEDICARE (M) PART A Apr 24, 2004 PART A [id number] QUE GELLER PATIENT Selected Encounter This section includes the information on record at MD for the Encounter. Date/Time Encounter Type Encounter Description Reason Pro vider Source May 05, 2024 06:05 PM Outpatient Encounter ADMIN PAT ACTIVTIES (MASNONCT) IHE Encounter Template Text not used by MD Plan of Treatment: Future Appointments (+ 6 months) and Future Tests (+/- 45 days) The Plan of Treatment section includes future care activities for the patient from all [facility]. This section includes future appointments and future orders which are active, pending or scheduled. Future Appointments This section includes appointments that were scheduled to occur 6 months from the date of the Encounter, up to a maximum of 20 appointments. The data comes from all MD treatment facilities. Appointment Date/Time Appointment Type Appointme nt Facility Name May 14, 2024 03:00 PM AMBULATORY - MEDICINE [place] [facility] [place] [facility] May 14, 2024 03:30 PM AMBULATORY - MEDICINE [facility] [place] [facility] May 21, 2024 09:00 AM AMBULATORY - MEDICINE [facility] [facility] Jun 26, 2024 02:30 PM AMBULATORY - MEDICINE [facility] [facility] Jun 26, 2024 03:00 PM AMBULATORY - MEDICINE [facility] [facility] Jun 26, 2024 03:15 PM AMBULATORY - MEDICINE [facility] [facility] Jul 03, 2024 04:00 PM AM[facility]ULATORY - [facility]IC[facility] [facility] Sep 04, 2024 04:00 PM [facility] [place] [facility] Sep 11, 2024 01:00 PM AM[place]ORY - [place]ICINE [place] Oct 24, 2024 04:00 PM [facility] Oct 30, 2024 01:00 PM AMBULATORY - MEDICINE [place] [...] of theEncounter. The data comes from all MD treatment facilities. Test Date/Time Test Type Test Details Facility Name Mar 22, 2024 12:13 PM Consult Order [facility] Cons [employer] Social History: Smoking Status (Most current) and Tobacco Use (All prior to encounter date) This section includes the most current, and the historical, smoking and tobacco- related health factors from the MD facility where the Encounter took place. Current Smoking Status This section includes the most current smoking, or tobacco-related health factor, from the MD facility where the Encounter took place. Date/Time Current Smoking Status Comment Catie ity Mar 22, 2024 12:43 PM VA-TOBACCO NEVER USED [facility] Tobacco Use History This section includes a history of the smoking, or tobacco-related health factors, that were collected on or before the date of the Encounter. The data comes from the MD facility where the Encounter took place. Date/Time Smoking Status/Tobacco Use Comment F acility Mar 26, 2021 02:25 PM VA-TOBACCO NEVER USED [facility] Advance Directives: All historical and current Section Date Range: From patient's date of to the date document was created. This section includes ALL of a patient's completed or amended MD Advance and Rescinded Directives. The entries below indicate that a directive exists for the patient, but an actual copy is not included with this document. The data comes from all MD facilities. Date Advance Directives Provider Source Nov 04, 2016 ADVANCE DIRECTIVE RONY URRUTIA [facility] Encounter Notes: All associated encounter notes This section contains the clinical notes associated to the Encounter. Date/Time Encounter Note(s) Provider Source May 08, 2024 03:28 PM ADDENDUM: LOCAL TITLE: Addendum STANDARD TITLE: ADDENDUM DATE OF NOTE: MAY 08, 2024@15:28:41 ENTRY DATE: MAY 08, 2024@15:28:43 AUTHOR: MILTON MURILLO COSIGNER: URGENCY: STATUS: COMPLETED Forwarding renewal request for MULTIVITAMIN,OPHTHALMIC AREDS2 CAP/TAB MULTIVIT/OPHTH AREDS2/LUTE/ZEAX CAP/TAB TAKE 1 CAPSULE BY MOUTH TWICE DAILY IN THE MORNING AND EVENING, WITH FOOD Quantity: 120 Refills: 5 to optometry provider for review /jose cruz/ OBI HUGGINS RN-BC REGISTERED NURSE Signed: 05/08/2024 15:29 Receipt Acknowledged By: 05/08/2024 15:57 /es/ AMY CADENA OD Cookie Padder --- Original Document --- 05/05/24 CCC: SCHEDULING ADMINISTRATION: VERIFY PATIENT DEMOGRAPHICS SUCCESSFULLY VERIFIED DEMOGRAPHICS pt requested a refill for his medication: MULTIVITAMIN,OPHTHALMIC AREDS2 CAP/TAB MULTIVIT/OPHTH AREDS2/LUTE/ZEAX CAP/TAB TAKE 1 CAPSULE BY MOUTH TWICE DAILY IN THE MORNING AND EVENING, WITH FOOD Quantity: 120 Refills: 5 /jose cruz/ MARCELINA COSTA Signed: 05/05/2024 18:06 Receipt Acknowledged By: 05/07/2024 17:04 /jose cruz/ WAYNE WHEATLEY NP NURSE PRACTITIONER 05/07/2024 ADDENDUM STATUS: COMPLETED Please note that [facility] does not prescribe or refill ophthalology medications. Please request from original prescriber. /jose cruz/ WAYNE WHEATLEY NP NURSE PRACTITIONER Signed: 05/07/2024 17:05 Receipt Acknowledged By: * AWAITING SIGNATURE * MARCELINA COSTA 05/08/2024 15:11 /jose cruz/ ROBERTA HARPER LPN, KRISTIN [facility] [place] [facility] May 07, 2024 05:04 PM ADDENDUM: LOCAL TITLE: Addendum STANDARD TITLE: ADDENDUM DATE OF NOTE: MAY 07, 2024@17:04:13 ENTRY DATE: MAY 07, 2024@17:04:14 AUTHOR: WAYNE WHEATLEY COSIGNER: URGENCY: STATUS: COMPLETED Please note that [facility] does not prescribe or refill ophthalology medications. Please request from original prescriber. /jose cruz/ WAYNE WHEATLEY NP NURSE PRACTITIONER Signed: 05/07/2024 17:05 Receipt Acknowledged By: 05/12/2024 10:30 /jose cruz/ MARCELINA COSTA 05/08/2024 15:11 /jose cruz/ VIRGINIA SHAY LPN LPN --- Original Document --- 05/05/24 CCC: SCHEDULING ADMINISTRATION: VERIFY PATIENT DEMOGRAPHICS SUCCESSFULLY VERIFIED DEMOGRAPHICS pt requested a refill for his medication: MULTIVITAMIN,OPHTHALMIC AREDS2 CAP/TAB MULTIVIT/OPHTH AREDS2/LUTE/ZEAX CAP/TAB TAKE 1 CAPSULE BY MOUTH TWICE DAILY IN THE MORNING AND EVENING, WITH FOOD Quantity: 120 Refills: 5 /jose cruz/ MARCELINA COSTA Signed: 05/05/2024 18:06 Receipt Acknowledged By: 05/07/2024 17:04 /jose cruz/ WAYNE WHEATLEY NP NURSE PRACTITIONER 05/08/2024 ADDENDUM STATUS: COMPLETED Forwarding renewal request for MULTIVITAMIN,OPHTHALMIC AREDS2 CAP/TAB MULTIVIT/OPHTH AREDS2/LUTE/ZEAX CAP/TAB TAKE 1 CAPSULE BY MOUTH TWICE DAILY IN THE MORNING AND EVENING, WITH FOOD Quantity: 120 Refills: 5 to optometry provider for review /jose cruz/ OBI HUGGINS RN-BC REGISTERED NURSE Signed: 05/08/2024 15:29 Receipt Acknowledged By: 05/08/2024 15:57 /es/ AMY CADENA OD Cookie Padder [facility] May 05, 2024 06:05 PM ADMINISTRATIVE NOT E: LOCAL TITLE: CCC: SCHEDULING ADMINISTRATION STANDARD TITLE: ADMINISTRATIVE NOTE DATE OF NOTE: MAY 05, 2024@18:05 ENTRY DATE: MAY 05, 2024@18:05:49 AUTHOR: MARCELINA COSTA COSIGNER: URGENCY: STATUS: COMPLETED CCC: SCHEDULING ADMINISTRATION Has ADDENDA VERIFY PATIENT DEMOGRAPHICS SUCCESSFULLY VERIFIED DEMOGRAPHICS pt requested a refill for his medication: MULTIVITAMIN,OPHTHALMIC AREDS2 CAP/TAB MULTIVIT/OPHTH AREDS2/LUTE/ZEAX CAP/TAB TAKE 1 CAPSULE BY MOUTH TWICE DAILY IN THE MORNING AND EVENING, WITH FOOD Quantity: 120 Refills: 5 /jose cruz/ MARCELINA COSTA Signed: 05/05/2024 18:06 Receipt Acknowledged By: 05/07/2024 17:04 /jose cruz/ WAYNE WHEATLEY NP NURSE PRACTITIONER 05/07/2024 ADDENDUM STATUS: COMPLETED Please note that [facility] does not prescribe or refill ophthalology medications. Please request from original prescriber. /jose cruz/ WAYNE WHEATLEY NP NURSE PRACTITIONER Signed: 05/07/2024 17:05 Receipt Acknowledged By: * AWAITING SIGNATURE * MARCELINA COSTA 05/08/2024 15:11 /jose cruz/ VIRGINIA SHAY LPN LPN 05/08/2024 ADDENDUM STATUS: COMPLETED Forwarding renewal request for MULTIVITAMIN,OPHTHALMIC AREDS2 CAP/TAB MULTIVIT/OPHTH AREDS2/LUTE/ZEAX CAP/TAB TAKE 1 CAPSULE BY MOUTH TWICE DAILY IN THE MORNING AND EVENING, WITH FOOD Quantity: 120 Refills: 5 to optometry provider for review /jose cruz/ COLLEEN HUGGINSN RN-BC REGISTERED NURSE Signed: 05/08/2024 15:29 Receipt Acknowledged By: * AWAITING SIGNATURE * AMY CADENA SARAH [facility]
--- OUTSIDE RECORDS SUMMARY | 2024-07-26 16:59 | XMS_ITS | Encounter Summary ---
Author Name Department of [place] Organization Department [place] Address [address] [place] [address] Care Team Providers Care Caddy Name Role Phone WAYNE WHEATLEY Primary Care [...] Name Patient's Relationship to Policy [facility]) MEDICARE ADVANTAGE [facility] ([facility]) Aug 25, 2001 [facility] ([facility]) [id number] ADRIANA GELLER PATIENT MEDICARE ([facility]) MEDICARE (M) PART A Oct 23, 2016 PART A [id number] QUE GELLER PATIENT MEDICARE ([facility]) MEDICARE (M) PART B Oct 23, 2016 PART B [id number] QUE GELLER PATIENT MEDICARE ([facility]) MEDICARE (M) PART B Jul 25, 2011 PART B [id number] [phone] QUE GELLER PATIENT MEDICARE ([facility]) MEDICARE (M) PART B Jul 25, 2011 PART B [id number] 97A QUE GELLER PATIENT MEDICARE (WNR) MEDICARE (M) PART B Jul 25, 2011 PART B [id number] QUE GELLER PATIENT MEDICARE (WNR) MEDICARE (M) PART A Apr 24, 2004 PART A [id number] QUE GELLER PATIENT MEDICARE (WNR) MEDICARE (M) PART A Apr 24, 2004 PART A [id number] 97A QUE GELLER PATIENT MEDICARE (WNR) MEDICARE (M) PART A Apr 24, 2004 PART A [id number] [phone] QUE GELLER PATIENT Selected Encounter This section includes the information on record at MT for the Encounter. Date/Time Encounter Type Encounter Description Reason Pro vider Source Dec 30, 2023 12:00 AM Outpatient Encounter COMMUNITY CARE CONSULT IHE Encounter Template Text not used by MT Plan of Treatment: Future Appointments (+ 6 months) and Future Tests (+/- 45 days) The Plan of Treatment section includes future care activities for the patient from all [place] treatmentfacilities. This section includes future appointments and future orders which are active, pending or scheduled. Future Appointments This section includes appointments that were scheduled to occur 6 months from the date of the Encounter, up to a maximum of 20 appointments. The data comes from all [place] treatment facilities. Appointment Date/Time Appointment Type Appointme nt Facility Name Mar 22, 2024 11:00 AM AMBULATORY - MEDICINE [facility] Apr 11, 2024 01:00 PM AMBULATORY - MEDICINE [facility] [place] [facility] Apr 24, 2024 01:00 PM AMBULATORY - MEDICINE [facility] Apr 25, 2024 04:00 PM AMBULATORY - NONE [facility] [place] [facility] Apr 26, 2024 08:50 AM AMBULATORY - MEDICINE [facility] [place] [facility] May 14, 2024 03:00 PM AMBULATORY - MEDICINE [facility] [place] [facility] May 14, 2024 03:30 PM AMBULATORY - MEDICINE [place] [facility] [place] [facility] May 21, 2024 09:00 AM AMBULATORY - MEDICINE [facility] [place] [facility] Jun 26, 2024 02:30 PM AMBULATORY - MEDICINE [facility] Jun 26, 2024 03:00 PM AMBULATORY - MEDICINE [facility] NTR [facility] Jun 26, 2024 03:15 PM [facility] Social History: Smoking Status (Most current) and Tobacco Use (All prior to encounter date) This section includes the most current, and the historical, smoking and tobacco- related health factors from the [place] facility where the Encounter took place. Current Smoking Status This section includes the most current smoking, or tobacco-related health factor, from the [place] facility where the Encounter took place. Date/Time Current Smoking Status Comment Facil ity Mar 26, 2021 02:25 PM VA-TOBACCO NEVER USED [facility] Advance Directives: All historical and current Section Date Range: From patient's date of to the date document was created. This section includes ALL of a patient's completed or amended [place] Advance and Rescinded Directives. The entries below indicate that a directive exists for the patient, but an actual copy is not included with this document. The data comes from all [place] facilities. Date Advance Directives Provider Source Nov 04, 2016 ADVANCE DIRECTIVE RONY URRUTIA [facility] Encounter Notes: All associated encounter notes This section contains the clinical notes associated to the Encounter. Date/Time Encounter Note(s) Provider Source Dec 30, 2023 12:00 AM NONVA CONSULT: LOCAL TITLE: COMMUNITY CARE-CONSULT RESULT NOTE STANDARD TITLE: NONVA CONSULT DATE OF NOTE: DEC 30, 2023 ENTRY DATE: MAR 29, 2024@10:51:09 AUTHOR: TOÑITO COLEMAN EXP COSIGNER: URGENCY: STATUS: COMPLETED VistA Imaging - Scanned Document SCANNED DOCUMENT SIGNATURE NOT REQUIRED Electronically Filed: 03/29/2024 by: TOÑITO HERCULES [facility]
--- OUTSIDE RECORDS SUMMARY | 2024-07-26 16:59 | XMS_ITS | Encounter Summary ---
Author Name Department of Vetera Affairs (MD) Organization Department of Vetera Affairs ([place]) Address [address] [place] [id number] Care Team Providers Care Television News Video Editor Name Role Phone WAYNE WHEATLEY Primary Care [...] Patient's Relationship to Policy [facility]) MEDICARE ADVANTAGE [facility] ([facility]) Aug 25, 2001 [facility] ([facility]) [id number] DOMADRIANA SALINAS JOHN PATIENT MEDICARE ([facility]) MEDICARE (M) PART A Oct 23, 2016 PART A [id number] [phone] [id number] QUE GELLER PATIENT MEDICARE ([facility]) MEDICARE (M) PART B Oct 23, 2016 PART B [id number] QUE GELLER PATIENT MEDICARE (WN) MEDICARE (M) PART B Jul 25, 2011 PART B [id number] QUE GELLER PATIENT MEDICARE (WN) MEDICARE (M) PART B Jul 25, 2011 PART B [id number] QUE GELLER PATIENT MEDICARE (WNR) MEDICARE (M) PART B Jul 25, 2011 PART B [id number] [phone] QUE GELLER PATIENT MEDICARE (WNR) MEDICARE (M) PART A Apr 24, 2004 PART A [id number] [phone] QUE GELLER PATIENT MEDICARE (WNR) MEDICARE (M) PART A Apr 24, 2004 PART A [id number] QUE GELLER PATIENT MEDICARE (WNR) MEDICARE (M) PART A Apr 24, 2004 PART A [id number] [phone] QUE GELLER PATIENT Selected Encounter This section includes the information on record at MD for the Encounter. Date/Time Encounter Type Encounter Description Reason Pro vider Source Jan 18, 2024 12:00 AM Outpatient Encounter COMMUNITY CARE CONSULT IHE Encounter Template Text not used by VA Plan of Treatment: Future Appointments (+ 6 months) and Future Tests (+/- 45 days) The Plan of Treatment section includes future care activities for the patient from all MD treatmentfacilities. This section includes future appointments and [...] 2024 11:00 AM AM[facility]ULATORY - MEDICINE [facility] Apr 11, 2024 01:00 PM AMBULATORY - MEDICINE [place] [place] [facility] Apr 24, 2024 01:00 PM [facility] Apr 25, 2024 04:00 PM AMBULATORY - NONE [facility] [place] [facility] Apr 26, 2024 08:50 AM AMBULATORY - MEDICINE MD C [place] [facility] May 14, 2024 03:00 PM AMBULATORY - MEDICINE [facility] [place] [facility] May 14, 2024 03:30 PM AMBULATORY - MEDICINE [place] [facility] May 21, 2024 09:00 AM AMBULATORY - MEDICINE [place] [facility] Jun 26, 2024 02:30 PM AMBULATORY - MEDICINE [place] [facility] Jun 26, 2024 03:00 PM AMBULATORY - MEDICINE [place] [facility] [place] [place] [facility] Jun 26, 2024 03:15 PM AMBULATORY - MEDICINE [place] [facility] Jul 03, 2024 04:00 PM AMBULATORY - [facility]ICINE [place] [facility] Lab Results: +/- 30 days of the encounter This section includes the Chemistry and Hematology Lab Results on record with MD for the patient. Radiology Reports and Pathology Reports are provided separately, in subsequent sections. Lab Results This section contains the Chemistry/Hematology Results that were resulted 30 days before or 30 daysafter the date of the Encounter. Date/Time Source Result Type Result - Unit Interpretation Reference Range Comment Feb 13, 2024 02:01 PM [place] T[facility] Specimen Type: SERUM No comment entered. Ordering Provider: BHAVANI BYRD Report Released Date/Time: December 12, 2023 09:14 PM [facility] [address] [facility] [address] Performing Lab: MD [facility]TR [facility] [id number] TSH 6.71 u[IU]/mL H 0.35-5.00 Social History: [...] 26, 2021 02:25 PM VA-TOBACCO NEVER USED [facility] WSN [facility] Advance Directives: All historical and current [...] Nov 04, 2016 ADVANCE DIRECTIVE RONY URRUTIA [facility] Encounter Notes: All associated encounter notes This section contains the clinical notes associated to the Encounter. Date/Time Encounter Note(s) Provider Source Jan 18, 2024 12:00 AM NONVA CONSULT: LOCAL TITLE: COMMUNITY CARE-CONSULT RESULT COLONOSCOPY STANDARD TITLE: NONVA CONSULT DATE OF NOTE: JAN 18, 2024 ENTRY DATE: MAR 29, 2024@10:39:22 AUTHOR: TOIÑTO COLEMAN EXP COSIGNER: URGENCY: STATUS: COMPLETED VistA Imaging - Scanned Document SCANNED DOCUMENT SIGNATURE NOT REQUIRED Electronically Filed: 03/29/2024 by: TOÑITO COLEMANTOÑITO [facility] Jan 18, 2024 12:00 AM NONVA CONSULT: LOCAL TITLE: COMMUNITY CARE-CONSULT RESULT NOTE STANDARD TITLE: NONVA CONSULT DATE OF NOTE: JAN 18, 2024 ENTRY DATE: MAR 29, 2024@11:03:45 AUTHOR: TOÑITO COLEMAN EXP COSIGNER: URGENCY: STATUS: COMPLETED VistA Imaging - Scanned Document SCANNED DOCUMENT SIGNATURE NOT REQUIRED Electronically Filed: 03/29/2024 by: TOÑITO COLEMANTOÑITO [facility] Jan 18, 2024 12:00 AM NONVA CONSULT: LOCAL TITLE: COMMUNITY CARE-CONSULT RESULT COLONOSCOPY STANDARD TITLE: NONVA CONSULT DATE OF NOTE: JAN 18, 2024 ENTRY DATE: MAR 29, 2024@11:18:46 AUTHOR: TOÑITO COLEMANIGNER: URGENCY: STATUS: COMPLETED VistA Imaging - Scanned Document SCANNED DOCUMENT SIGNATURE NOT REQUIRED Electronically Filed: 03/29/2024 by: TOÑITO COLEMANTOÑITO [facility] Jan 18, 2024 12:00 AM NONVA CONSULT: LOCAL TITLE: COMMUNITY CARE-CONSULT RESULT COLONOSCOPY STANDARD TITLE: NONVA CONSULT DATE OF NOTE: JAN 18, 2024 ENTRY DATE: MAR 29, 2024@11:21:53 AUTHOR: TOÑITO COLEMAN COSIGNER: URGENCY: STATUS: COMPLETED VistA Imaging - Scanned Document SCANNED DOCUMENT SIGNATURE NOT REQUIRED Electronically Filed: 03/29/2024 by: TOÑITO [facility]CULES [facility]
--- OUTSIDE RECORDS SUMMARY | 2024-07-26 16:59 | XMS_ITS | Encounter Summary ---
Author Name [place] Organization [place] Address [address] [place] [address] Care Team Providers Care Us Customs And Border Officer Name Role Phone WAYNE WHEATLEY Primary Care [...] Name Patient's Relationship to Policy [facility]) MEDICARE ADVANTAGE [facility] ([facility]) Aug 25, 2001 [facility] ([facility]) [id number] ADRIANA GELLER PATIENT MEDICARE ([facility]) MEDICARE (M) PART A Oct 23, 2016 PART A [id number] QUE GELLER PATIENT MEDICARE ([facility]) MEDICARE (M) PART B Oct 23, 2016 PART B [id number] QUE GELLER PATIENT MEDICARE ([facility]) MEDICARE (M) PART B Jul 25, 2011 PART B [id number] [phone] QUE GELLER PATIENT MEDICARE ([facility]) MEDICARE (M) PART B Jul 25, 2011 PART B [id number] QUE GELLER PATIENT MEDICARE (WNR) MEDICARE (M) PART B Jul 25, 2011 PART B [id number] QUE GELLER PATIENT MEDICARE (WNR) MEDICARE (M) PART A Apr 24, 2004 PART A [id number] [phone] QUE GELLER PATIENT MEDICARE (WNR) MEDICARE (M) PART A Apr 24, 2004 PART A [id number] QUE GELLER PATIENT MEDICARE (WNR) MEDICARE (M) PART A Apr 24, 2004 PART A [id number] [phone] QUE GELLER PATIENT Selected Encounter This section includes the information on record at [place] for the Encounter. Date/Time Encounter Type Encounter Description Reason Pro vider Source Feb 09, 2024 12:00 AM Outpatient Encounter COMMUNITY CARE [...] 2024 01:00 PM AMBULATORY - MEDICINE [facility] Apr 25, 2024 04:00 PM AMBULATORY - NONE [facility] [place] [facility] Apr 26, 2024 08:50 AM AMBULATORY - MEDICINE [place] [facility] [place] [facility] May 14, 2024 03:00 PM AMBULATORY - MEDICINE [place] [facility] [place] [facility] May 14, 2024 03:30 PM AMBULATORY - MEDICINE [place] [facility] [place] [facility] May 21, 2024 09:00 AM AMBULATORY - MEDICINE [place] [facility] [place] [facility] Jun 26, 2024 02:30 PM AMBULATORY - MEDICINE [place] [facility] [place] [facility] Jun 26, 2024 03:00 PM AMBULATORY - MEDICINE [place] [facility] [facility] Jun 26, 2024 03:15 PM AMBULATORY - MEDICINE [facility] [place] [facility] Jul 03, 2024 04:00 PM AMBULATORY - MEDICINE [facility] Active, Pending, and Scheduled Orders This section includes a listing of several types of active, pending, and scheduled orders, including clinic medications orders, diagnostic test orders, procedure orders and consult orders; where the start date of the order is 45 days before the date of the Encounter or 45 days after the date of theEncounter. The data comes from all [place] treatment facilities. Test Date/Time Test Type Test Details Facility Name Mar 22, 2024 12:13 PM Consult Order COMMUNITY CARE-MRI Cons [employer] Manager[facility] Lab Results: +/- 30 days of the [...] Range Comment Feb 13, 2024 02:01 PM [facility] Specimen Type: SERUM No comment entered. Ordering Provider: BHAVANI BYRD Report Released Date/Time: December 12, 2023 09:14 PM Reporting [facility] [address] [id number] Performing Lab: [place] [facility] [address] [id number] TSH 6.71 u[IU]/mL H 0.35-5.00 Social History: [...] 2021 02:25 PM VA-TOBACCO NEVER USED [facility] Advance Directives: All historical and current Section [...] Source Nov 04, 2016 ADVANCE DIRECTIVE IVONNEELSYRONY [facility] Encounter Notes: All associated encounter notes This section contains the clinical notes associated to the Encounter. Date/Time Encounter Note(s) Provider Source Feb 09, 2024 12:00 AM NONVA CONSULT: LOCAL TITLE: COMMUNITY CARE-CONSULT RESULT NOTE STANDARD TITLE: NONVA CONSULT DATE OF NOTE: FEB 09, 2024 ENTRY DATE: MAR 29, 2024@11:08:41 AUTHOR: TOÑITO COLEMAN EXP COSIGNER: URGENCY: STATUS: COMPLETED VistA Imaging - Scanned Document SCANNED DOCUMENT SIGNATURE NOT REQUIRED Electronically Filed: 03/29/2024 by: TOÑITO HERCULES [facility]
--- OUTSIDE RECORDS SUMMARY | 2024-07-26 17:00 | XMS_ITS | Encounter Summary ---
Author Name [place] Organization [place] Address [address] [place] [address] Care Team Providers Care Director Acute Name Role Phone WAYNE MCCLENDON Primary Care [...] Relationship to Policy [facility]) MEDICARE ADVANTAGE [facility] ([facility]) Aug 25, 2001 [facility] ([facility]) [id number] TIERNEYADRIANA RUSSO PATIENT MEDICARE ([facility]) MEDICARE (M) PART A Oct 23, 2016 PART A [id number] QUE GELLER PATIENT MEDICARE ([facility]) MEDICARE (M) PART B Oct 23, 2016 PART B [id number] [phone] QUE GELLER PATIENT MEDICARE ([facility]) MEDICARE (M) PART B Jul 25, 2011 PART B [id number] QUE GELLER PATIENT MEDICARE ([facility]) MEDICARE (M) PART B Jul 25, 2011 PART B [id number] QUE GELLER PATIENT MEDICARE (WNR) MEDICARE (M) PART B Jul 25, 2011 PART B [id number] QUE GELLER PATIENT MEDICARE (WNR) MEDICARE (M) PART A Apr 24, 2004 PART A [id number] [id number] QUE GELLER PATIENT MEDICARE (WNR) MEDICARE (M) PART A Apr 24, 2004 PART A [id number] 97A QUE GELLER PATIENT MEDICARE (WNR) MEDICARE (M) PART A Apr 24, 2004 PART A [id number] QUE GELLER PATIENT Selected Encounter This section includes the information on record at [place] for the Encounter. Date/Time Encounter Type Encounter Description Reason Pro vider Source May 29, 2024 02:26 PM Outpatient Encounter PRIMARY CARE/MEDICINE IHE Encounter Template Text not used by [place] Plan of Treatment: Future Appointments (+ 6 months) and Future Tests (+/- 45 days) The Plan of Treatment section includes future care activities for the patient from all [place] [facility]. This section includes future appointments and future orders which are active, pending or scheduled. Future Appointments This section includes appointments that were scheduled to occur 6 months from the date of the Encounter, up to a maximum of 20 appointments. The data comes from all [place] treatment facilities. Appointment Date/Time Appointment Type Appointme nt Facility Name Jun 26, 2024 02:30 PM AMBULATORY - MEDICINE [place] [facility] [place] [facility] Jun 26, 2024 03:00 PM AMBULATORY - MEDICINE [place] [facility] [facility] Jun 26, 2024 03:15 PM AMBULATORY - MEDICINE [place] [facility] [facility] Jul 03, 2024 04:00 PM [facility]ORY - [facility]ICINE [facility] Sep 04, 2024 04:00 PM [facility]ORY - [facility]IC[facility] Sep 11, 2024 01:00 PM [facility]ORY - [place]ICINE [facility] [place] Oct 24, 2024 04:00 PM AMBULATORY - NONE [facility] [place] [facility] Oct 30, 2024 01:00 PM AM[facility]ATORY - [place]ICINE [facility] [place] Social History: Smoking Status (Most current) and [...] place. Date/Time Current Smoking Status Comment Catie deandragrecia Mar 22, 2024 12:43 PM VA-TOBACCO NEVER USED [facility] Tobacco Use History This section includes a history of the smoking, or tobacco-related health factors, that were collected on or before the date of the Encounter. The data comes from the [place] facility where the Encounter took place. Date/Time Smoking Status/Tobacco Use Comment Gaby gerardo Mar 26, 2021 02:25 PM VA-TOBACCO NEVER USED [facility] Advance Directives: All historical and current [...] Source Nov 04, 2016 ADVANCE DIRECTIVE IVONNEELSYRONY [facility] Encounter Notes: All associated encounter notes This section contains the clinical notes associated to the Encounter. Date/Time Encounter Note(s) Provider Source May 29, 2024 04:12 PM ADDENDUM: LOCAL TITLE: Addendum STANDARD TITLE: ADDENDUM DATE OF NOTE: MAY 29, 2024@16:12:51 ENTRY DATE: MAY 29, 2024@16:12:52 AUTHOR: RYLEE SPAULDING EXP COSIGNER: URGENCY: STATUS: COMPLETED [place] spoke to ANIRUDH stating he went to [facility] on Tuesday05/26/24 for severe nauseau and cramping. He is requesting 2 medications that were given to him. Reglan, and Dicyclomine. Records requested from [facility]. /jose cruz/ RYLEE OLEARY Signed: 05/29/2024 16:16 Receipt Acknowledged By: 05/30/2024 15:50 /jose cruz/ LUCIA SHERIDAN REGISTERED NURSE 05/31/2024 09:38 /jose cruz/ GALINDO MCCRACKEN LPN LPN --- Original Document --- 05/29/24 WALK-IN NOTE PRIMARY CARE (T): <====Click to Start Advanced Medical Support [place] presents to the Primary Care clinic with the following request: [ ]Medication Renewal/Refill [ ]Consultation with Team RN [ ]Symptoms [ X ]Other The [place] states they are: [ ]Waiting [ X ]Not Waiting No Walk in visit scheduled with PACT Nurse [ X ] At this encounter the 's demographics were verified. [ X ] At this encounter the [place]'s Insurance information was verified. [ X ] At this encounter the below scheduled visits for the [place] were discussed and appointment reminder card was offered. Future appointments: 06/26/2024 14:00 NHM/OPT/VISUAL IMAGING 06/26/2024 14:30 NHM/OPTOMETRY/LAMAR/ 07/26/2024 14:00 CWM/SO/PACT 1 SQL ARCHITECT 09/11/2024 13:00 CWM/SO/PODIATRY/WOLF 10/24/2024 16:00 NHM DENTAL RDH 1 PM Vet states he called YENY Mcclendon would like a call back if possible. /jose cruz/ CAMILLA OLEARY Signed: 05/29/2024 14:27 Receipt Acknowledged By: 05/30/2024 15:28 /jose cruz/ WAYNE MCCLENDON NP NURSE PRACTITIONER RYLEE SPAULDING May 29, 2024 02:26 PM PRIMARY CARE NOTE: LOCAL TITLE: WALK-IN NOTE PRIMARY CARE (T) STANDARD TITLE: PRIMARY CARE NOTE DATE OF NOTE: MAY 29, 2024@14:26 ENTRY DATE: MAY 29, 2024@14:26:27 AUTHOR: CAMILLA MUÑOZ EXP COSIGNER: URGENCY: STATUS: COMPLETED WALK-IN NOTE PRIMARY CARE (T) Has ADDENDA <====Click to Start Advanced Medical Support [place] presents to the Primary Care clinic with the following request: [ ]Medication Renewal/Refill [ ]Consultation with Team RN [ ]Symptoms [ X ]Other The states they are: [ ]Waiting [ X ]Not Waiting No Walk in visit scheduled with PACT Nurse [ X ] At this encounter the [place]'s demographics were verified. [ X ] At this encounter the 's Insurance information was verified. [ X ] At this encounter the below scheduled visits for the [place] were discussed and appointment reminder card was offered. Future appointments: 06/26/2024 14:00 NHM/OPT/VISUAL IMAGING 06/26/2024 14:30 NHM/OPTOMETRY/LAMAR/ 07/26/2024 14:00 CWM/SO/PACT 1 SQL ARCHITECT 09/11/2024 13:00 CWM/SO/PODIATRY/ROSS 10/24/2024 16:00 NHM DENTAL RDH 1 PM Vet states he called YENY Mcclendon would like a call back if possible. /es/ CAMILLA OLEARY Signed: 05/29/2024 14:27 Receipt Acknowledged By: 05/30/2024 15:28 /es/ WAYNE MCCLENDON NP NURSE PRACTITIONER 05/29/2024 ADDENDUM STATUS: COMPLETED [place] spoke to ANIRUDH stating he went to [facility] on Tuesday05/26/24 for severe nauseau and cramping. He is requesting 2 medications that were given to him. Reglan, and Dicyclomine. Records requested from [facility]. /es/ RYLEE OLEARY Signed: 05/29/2024 16:16 Receipt Acknowledged By: * AWAITING SIGNATURE * LUCIA SHERIDAN * AWAITING SIGNATURE * GALINDO MCCRACKEN CASSANDRA M [facility]
--- OUTSIDE RECORDS SUMMARY | 2024-07-26 17:00 | XMS_ITS ---
Author Name [place] Organization [place] Address [address] [place] [address] Care Team Providers Care Upper Inspector Name Role Phone WAYNE WHEATLEY Primary Care [...] Name Patient's Relationship to Policy [facility]) MEDICARE ADVANTAGE [facility] ([facility]) Aug 25, 2001 [facility] ([facility]) [id number] [phone] ADRIANA GELLER PATIENT MEDICARE ([facility]) MEDICARE () PART A Oct 23, 2016 PART A [id number] QUE GELLER PATIENT MEDICARE ([facility]) MEDICARE () PART B Oct 23, 2016 PART B [id number] QUE GELLER PATIENT MEDICARE ([facility]) MEDICARE () PART B Jul 25, 2011 PART B [id number] 97A QUE GELLER PATIENT MEDICARE ([facility]) MEDICARE (M) PART B Jul 25, 2011 PART B [id number] 97A QUE GELLER PATIENT MEDICARE ([place]) MEDICARE (M) PART B Jul 25, 2011 PART B [id number] QUE GELLER PATIENT MEDICARE (WNR) MEDICARE (M) PART A Apr 24, 2004 PART A [id number] 97A QUE GELLER PATIENT MEDICARE (WNR) MEDICARE (M) PART A Apr 24, 2004 PART A [id number] 97A QUE GELLER PATIENT MEDICARE (WNR) MEDICARE (M) PART A Apr 24, 2004 PART A [id number] QUE GELLER PATIENT Selected Encounter This section includes the information on record at [place] for the Encounter. Date/Time Encounter Type Encounter Description Reason Pro vider Source May 24, 2024 01:17 PM Outpatient Encounter TELEPHONE TRIAGE IHE Encounter Template Text not used by [place] Plan of Treatment: Future Appointments (+ 6 months) and Future Tests (+/- 45 days) The Plan of Treatment section includes future care activities for the patient [facility] all [place] [facility]. This section includes future appointments and [...] - MEDICINE [place] [facility] [place] [facility] Jun 26, 2024 03:00 PM AMBULATORY - MEDICINE [place] [facility] [place] [facility] Jun 26, 2024 03:15 PM AMBULATORY - MEDICINE [place] [facility] [place] [facility] Jul 03, 2024 04:00 PM [facility]ATORY - [facility]ICINE [facility] Sep 04, 2024 04:00 PM AM[facility]ATORY [facility]IC[facility] Sep 11, 2024 01:00 PM AMBULATORY - MEDICINE [facility] [place] Oct 24, 2024 04:00 PM AMBULATORY - NONE [facility] [place] [facility] Oct 30, 2024 01:00 PM AMBULATORY - [...] 22, 2024 12:43 PM VA-TOBACCO NEVER USED [facility] Tobacco Use History This section includes a history of the smoking, or tobacco-related health factors, that were collected on or before the date of the Encounter. The data comes from the [place] facility where the Encounter took place. Date/Time Smoking Status/Tobacco Use Comment F gerardo Mar 26, 2021 02:25 PM VA-TOBACCO NEVER USED [facility] Advance Directives: All historical and [...] Nov 04, 2016 ADVANCE DIRECTIVE RONY URRUTIA [facility] Encounter Notes: All associated encounter notes This section contains the clinical notes associated to the Encounter. Date/Time Encounter Note(s) Provider Source May 24, 2024 01:17 PM RN PROGRESS NOTE: LOCAL TITLE: CCC: CLINICAL TRIAGE STANDARD TITLE: RN PROGRESS NOTE DATE OF NOTE: MAY 24, 2024@13:17:43 ENTRY DATE: MAY 24, 2024@13:17:44 AUTHOR: ALEN URIBE EXP COSIGNER: URGENCY: STATUS: COMPLETED CCC: CLINICAL TRIAGE Has ADDENDA Patient Demographics Patient Name: KAM GELLER Patient Primary Address: [address] [place] [id number] Patient Primary Phone: [phone] Patient : 1950 Patient Age: 73 Caller/Recipient Relation to Patient: Self Emergency Contact: MEI GELLER Triage Summary Conducted triage/discussed symptoms Utilized the Triage Tool: Yes Chief Complaint: Abdominal Pain System WHEN: Now, 911 Nurse's Recommendation / WHEN: 911 System WHERE: Emergency department Nurse's Recommendation / WHERE: [facility] Patient Disposition Patient/Caregiver agrees to plan of care: Yes Nursing Plan and Disposition Referred patient to higher level of care Instructed to go to Emergency Room (ER) Advised of Financial Disclaimer: Patient advised that recommendation for care provided during the call does not constitute an approval or authorization for payment by the [place] or its staff. Patient advised to report a community ED visit to the [facility] Office of Community Care at within 72 hours. Other course(s) of action Generated msg to PACT/Provider Provided guidance for worsening symptoms: *Caller/Patient* advised to call facilities [place] Clinical Contact Center or seek immediate medical attention for new or worsening symptoms Nurse Summary Nurse Summary: [place] calls reporting he is followed by GI for stomach issues describing It's horrible, I don't know what to believe, there has to be something wrong. +Bloating +Gas +Vomiting (Stopped 1 month ago.) +Back pain, noting he has been going through withdrawals from the removal of pain pump. Endorses he has been taking months of the prescribed medication that hasn't gotten me anywhere. This has been years noting he has gone through battery of testing with no resolve. [place] endorses eating healthy and has been having daily bowel movements. I need to see somebody to tell me whats wrong, its pushing me over the edge. It's driving me crazy, I'm having negative thoughts. Denies SI/ HI, though I'm at the point where I need to talk with somebody. I need to find out whats wrong. Its awful. Between the back pain and GI issues, I need help. [place] becoming teary during our conversation. I'm doing the best to cope with it. I'm more miserable now because of this daily distress. I need to get a animal shelter clerk on this. It's overwhelming. VCL# provided and agrees to call if sx. worsen. [place] requesting the followin. Referral for second opinion from alternative GI providers. 2. Additional support for pain management of his back. Hx. Cholecystectomy, noting I haven't been the same since. Triaged. This RN recommends ER NOW. OCC Financial disclaimer reviewed and #[id number] provided with instructions to call within 72 hours of registration. PACT post ER follow-up call back requested for further guided plan of care. Verified Ph. [phone] Clinical Contact Center Codes Clinic/Location: V1 CWM PHONE CCC RN Decision Support System Output: Triage Complete Triage Date: 05/24/2024, 01:02 PM Triage Note: Decision Support Tool Used: TXCC Phone Triage Aliya, 24 May 2024 16:47:17 +[address] [facility] Demographics 73 y/o Male Results CC: Abdominal Pain Software suggested: Now, 911 Software suggested follow-up location: Emergency department Values and Measures Duration of CC: 2 Years Positive Responses HPI: abdominal pain, severe HPI: weakness, with diaphoresis Negative Responses Denies: HPI: chest pain Denies: PMH: abdominal aortic aneurysm IMPORTANT: This note was created by [facility] Clinical Contact Center staff. Please do not alert the staff member by adding them as a signer for future communications. Alerts are not monitored by this user. /jose cruz/ ALEN URIBE RN Signed: 05/24/2024 13:17 Receipt Acknowledged By: 05/28/2024 12:50 /es/ GALINDO MCCRACKEN LPN LPN 05/28/2024 11:35 /jose cruz/ BONNIE WILLIS RN REGISTERED NURSE 05/24/2024 ADDENDUM STATUS: COMPLETED Called and left a voicemail message for the [place] to call the clinic back. /jose cruz/ BONNIE WILLIS RN REGISTERED NURSE Signed: 05/24/2024 15:38 ALEN URIBE [place] [facility]
--- OUTSIDE RECORDS SUMMARY | 2024-07-26 17:00 | XMS_ITS | Encounter Summary ---
Author Name [place] Organization [place] Address [address] [place] [id number] Care Team Providers Care Annealer Name Role Phone WAYNE WHEATLEY Primary Care [...] Name Patient's Relationship to Policy [facility]) MEDICARE ADVANTAGE [facility] ([facility]) Aug 25, 2001 [facility] ([facility]) [id number] DOMADRIANA SALINAS JOHN PATIENT MEDICARE ([facility]) MEDICARE (M) PART A Oct 23, 2016 PART A [id number] [phone] QUE GELLER PATIENT MEDICARE ([facility]) MEDICARE (M) PART B Oct 23, 2016 PART B [id number] QUE GELLER PATIENT MEDICARE (WN) MEDICARE (M) PART B Jul 25, 2011 PART B [id number] QUE GELLER PATIENT MEDICARE ([facility]) MEDICARE (M) PART B Jul 25, 2011 PART B [id number] QUE GELLER PATIENT MEDICARE (WNR) MEDICARE (M) PART B Jul 25, 2011 PART B [id number] [phone] QUE GELLER PATIENT MEDICARE (WNR) MEDICARE (M) PART A Apr 24, 2004 PART A [id number] QUE GELLER PATIENT MEDICARE (WNR) MEDICARE (M) PART A Apr 24, 2004 PART A [id number] QUE GELLER PATIENT MEDICARE (WNR) MEDICARE (M) PART A Apr 24, 2004 PART A [id number] QUE GELLER PATIENT Selected Encounter This section includes the information on record at [place] for the Encounter. Date/Time Encounter Type Encounter Description Reason Pro vider Source May 28, 2024 09:59 AM Outpatient Encounter PRIMARY CARE/MEDICINE IHE Encounter Template Text not used by [place] Plan of Treatment: Future Appointments (+ 6 months) and Future Tests (+/- 45 days) The Plan of Treatment section includes future care activities for the patient from all [place] [facility] This section includes future appointments [...] 26, 2024 02:30 PM AMBULATORY - MEDICINE [place] [facility] [facility] Jun 26, 2024 03:00 PM AMBULATORY - MEDICINE [place] [facility] [facility] Jun 26, 2024 03:15 PM AMBULATORY - MEDICINE [place] [facility] [facility] Jul 03, 2024 04:00 PM AM[facility]ULATORY - [facility]ICINE [place] [facility] Sep 04, 2024 04:00 PM AM[facility]ULATORY - [facility]IC[facility] [place] [facility] Sep 11, 2024 01:00 PM AMBULATORY - [place]ICINE [place] Oct 24, 2024 04:00 PM AMBULATORY - NONE [place] [facility] [place] [facility] Oct 30, 2024 01:00 PM AMBULATORY - [place]ICINE [place] Social History: Smoking Status (Most current) and Tobacco Use (All prior to encounter date) This section includes the most current, and the historical, smoking and tobacco- related health factors from the [place] facility where the Encounter took place. Current Smoking Status This section includes the most current smoking, or tobacco-related health factor, from the [place] facility where the Encounter took place. Date/Time Current Smoking Status Comment Ctaie deandragrecia Mar 22, 2024 12:43 PM VA-TOBACCO NEVER USED [facility] Tobacco Use History This section includes a history of the smoking, or tobacco-related health factors, that were collected on or before the date of the Encounter. The data comes from the [place] facility where the Encounter took place. Date/Time Smoking Status/Tobacco Use Comment Gaby gerardo Mar 26, 2021 02:25 PM VA-TOBACCO NEVER USED [facility] Advance Directives: All historical and current Section Date Range: From patient's date of to the date document was created. This section includes ALL of a patient's completed or amended [place] Advance and Rescinded Directives. The entries below indicate that a directive exists for the patient, but an actual copy is not included with this document. The data comes from all [place] facilities. Date Advance Directives Provider Source Nov 04, 2016 ADVANCE DIRECTIVE RONY URRUTIA [facility] Encounter Notes: All associated encounter notes This section contains the clinical notes associated to the Encounter. Date/Time Encounter Note(s) Provider Source May 28, 2024 10:30 AM MEDICATION MGT NOT E: LOCAL TITLE: OUTPATIENT MEDICATION REQUEST STANDARD TITLE: MEDICATION MGT NOTE DATE OF NOTE: MAY 28, 2024@10:30 ENTRY DATE: MAY 28, 2024@10:31:07 AUTHOR: LUCIA SHERIDAN EXP COSIGNER: URGENCY: STATUS: COMPLETED Pick-up at window: DOCUSATE NA 50MG/SENNOSIDES 8.6MG TAB TAKE 2 TABLETS BY MOUTH TWICE DAILY Quantity: 240 Refills: 3 Activity: 02/05/2022 14:51 New Order (Renewal) entered by KELTON MEZA (NURSE PRACTITIO) Order Text: DOCUSATE NA 50MG/SENNOSIDES 8.6MG TAB TAKE 2 TABLETS BY MOUTH TWICE DAILY Quantity: 240 Refills: 3 Nature of Order: ELECTRONICALLY ENTERED Elec Signature: KELTON MEZA (NURSE PRACTITIO) on 02/05/2022 15:04 [place] stopped taking as no longer needed then, now having intermitten constipation. /jose cruz/ LUCIA SHERIDAN REGISTERED NURSE Signed: 05/28/2024 10:32 Receipt Acknowledged By: 05/28/2024 10:45 /es/ WAYNE WHEATLEY NP NURSE PRACTITIONER LUCIA SHERIDAN
--- OUTSIDE RECORDS SUMMARY | 2024-07-26 17:00 | XMS_ITS | Encounter Summary ---
Author Name [place] Organization [place] Address [address] [place] [address] Care Team Providers Care Corrections Lieutenant Name Role Phone WAYNE WHEATLEY Primary Care [...] Patient's Relationship to Policy [facility]) MEDICARE ADVANTAGE [facility]) Aug 25, 2001 [facility] ([facility]) [id number] ADRIANA GELLER PATIENT MEDICARE ([facility]) MEDICARE (M) PART A Oct 23, 2016 PART A [id number] QUE GELLER PATIENT MEDICARE ([facility]) MEDICARE (M) PART B Oct 23, 2016 PART B [id number] QUE GELLER PATIENT MEDICARE ([facility]) MEDICARE (M) PART B Jul 25, 2011 PART B [id number] [phone] QUE GELLER PATIENT MEDICARE ([facility]) MEDICARE (M) PART B Jul 25, 2011 PART B [id number] QUE GELLER PATIENT MEDICARE (WNR) MEDICARE (M) PART B Jul 25, 2011 PART B [id number] QUE GELLER PATIENT MEDICARE (WNR) MEDICARE (M) PART A Apr 24, 2004 PART A [id number] [phone] QUE GELLER PATIENT MEDICARE (WNR) MEDICARE (M) PART A Apr 24, 2004 PART A [id number] QUE GELLER PATIENT MEDICARE (WNR) MEDICARE (M) PART A Apr 24, 2004 PART A [id number] QUE GELLER PATIENT Selected Encounter This section includes the information on record at [place] for the Encounter. Date/Time Encounter Type Encounter Description Reason Pro vider Source Apr 26, 2024 12:00 PM Outpatient Encounter COMMUNITY CARE CONSULT IHE Encounter Template Text not used by [place] Plan of Treatment: Future Appointments (+ 6 months) and Future Tests (+/- 45 days) The Plan of Treatment section includes future care activities for the patient from all [place] [facility]. This section includes future appointments and future orders which are active, pending or scheduled. Future Appointments This section includes appointments that were scheduled to occur 6 months from the date of the Encounter, up to a maximum of 20 appointments. The data comes from all [place] treatment facilities. Appointment Date/Time Appointment Type Appointme nt Facility Name May 14, 2024 03:00 PM AMBULATORY - MEDICINE [place] [place] [facility] May 14, 2024 03:30 PM AMBULATORY - MEDICINE [place] [facility] [place] [facility] May 21, 2024 09:00 AM AMBULATORY - MEDICINE [place] [facility] [place] [facility] Jun 26, 2024 02:30 PM AMBULATORY - MEDICINE [place] [facility] [place] [facility] Jun 26, 2024 03:00 PM AMBULATORY - MEDICINE [place] [facility] [place] [facility] Jun 26, 2024 03:15 PM AMBULATORY - MEDICINE [facility] [place] [facility] Jul 03, 2024 04:00 PM AM[facility]ULATORY - [facility]ICINE [place] [facility] Sep 04, 2024 04:00 PM [facility] [place] [facility] Sep 11, 2024 01:00 PM [facility]ATORY - MEDICINE [facility] Oct 24, 2024 04:00 PM AMBULATORY - NONE [facility] Active, Pending, and Scheduled Orders This section includes a listing of several types of active, pending, and scheduled orders, including clinic medications orders, diagnostic test orders, procedure orders and consult orders; where the start date of the order is 45 days before the date of the Encounter or 45 days after the date of theEncounter. The data comes from all [place] treatment facilities. Test Date/Time Test Type Test Details Facility Name Mar 22, 2024 12:13 PM Consult Order COMMUNITY CARE-MRI [facility] [employer] [facility] [facility]or[facility] [place] Social History: Smoking Status (Most current) and Tobacco Use (All prior to encounter date) This section includes the most current, and the historical, smoking and tobacco- related health factors from the [place] facility where the Encounter took place. Current Smoking Status This section includes the most current smoking, or tobacco-related health factor, from the [place] facility where the Encounter took place. Date/Time Current Smoking Status Comment Facil ity Mar 22, 2024 12:43 PM VA-TOBACCO NEVER USED [facility] Tobacco Use History This section includes a history of the smoking, or tobacco-related health factors, that were collected on or before the date of the Encounter. The data comes from the [place] facility where the Encounter took place. Date/Time Smoking Status/Tobacco Use Comment F acility Mar 26, 2021 02:25 PM AL-TOBACCO NEVER USED [facility] Advance Directives: All historical and current Section Date Range: From patient's date of to the date document was created. This section includes ALL of a patient's completed or amended [place] Advance and Rescinded Directives. The entries below indicate that a directive exists for the patient, but an actual copy is not included with this document. The data comes from all [place] facilities. Date Advance Directives Provider Source Nov 04, 2016 ADVANCE DIRECTIVE RONY URRUTIA [facility] Encounter Notes: All associated encounter notes This section contains the clinical notes associated to the Encounter. Date/Time Encounter Note(s) Provider Source Apr 26, 2024 12:00 PM NONVA CONSULT: LOCAL TITLE: COMMUNITY CARE-CONSULT RESULT NOTE STANDARD TITLE: NONVA CONSULT DATE OF NOTE: APR 26, 2024@12:00 ENTRY DATE: MAY 21, 2024@06:20:36 AUTHOR: ARIEL TEMPLE EXP COSIGNER: URGENCY: STATUS: COMPLETED VistA Imaging - Scanned Document SCANNED DOCUMENT SIGNATURE NOT REQUIRED Electronically Filed: 05/21/2024 by: ARIEL PHELPS [place] [facility]
--- OUTSIDE RECORDS SUMMARY | 2024-07-26 17:00 | XMS_ITS | Encounter Summary ---
Author Name Department [place] Organization [place] Address [address] [place] [id number] Care Team Providers Care Textile Technical Officer Name Role Phone WAYNE WHEATLEY Primary [...] Name Patient's Relationship to Policy [facility]) MEDICARE ADVANTAGE [facility] ([facility]) Aug 25, 2001 [facility] ([facility]) [id number] TIERNEYADRIANA RUSSO PATIENT MEDICARE ([facility]) MEDICARE (M) PART A Oct 23, 2016 PART A [id number] QUE GELLER PATIENT MEDICARE ([facility]) MEDICARE (M) PART B Oct 23, 2016 PART B [id number] QUE GELLER PATIENT MEDICARE ([facility]) MEDICARE (M) PART B Jul 25, 2011 PART B [id number] QUE GELLER PATIENT MEDICARE ([facility]) MEDICARE (M) PART B Jul 25, 2011 PART B [id number] 97A [phone] QUE GELLER PATIENT MEDICARE (WNR) MEDICARE (M) PART B Jul 25, 2011 PART B [id number] QUE GELLER PATIENT MEDICARE (WNR) MEDICARE (M) PART A Apr 24, 2004 PART A [id number] QUE GELLER PATIENT MEDICARE (WNR) MEDICARE (M) PART A Apr 24, 2004 PART A [id number] UQE GELLER PATIENT MEDICARE (WNR) MEDICARE (M) PART A Apr 24, 2004 PART A [id number] QUE GELLER PATIENT Selected Encounter This section includes the information on record at [place] for the Encounter. Date/Time Encounter Type Encounter Description Reason Pro vider Source May 28, 2024 08:54 AM Outpatient Encounter PRIMARY CARE/MEDICINE IHE Encounter Template Text not used by [place] Plan of Treatment: Future Appointments (+ 6 months) and Future Tests (+/- 45 days) The Plan of Treatment section includes future care activities for the patient from all [place] [facility]. This section includes future appointments and future [...] - MEDICINE [place] [facility] Jun 26, 2024 03:00 PM AMBULATORY - MEDICINE [place] [facility] Jun 26, 2024 03:15 PM AMBULATORY - MEDICINE [place] [facility] Jul 03, 2024 04:00 PM [facility] [facility] Sep 04, 2024 04:00 PM [facility]ATORY - [facility]IC[facility] [place] [facility] Sep 11, 2024 01:00 PM AM[place]ATORY - MEDICINE [place] Oct 24, 2024 04:00 PM AMBULATORY - NONE [place] [facility] [place] [facility] Oct 30, 2024 01:00 PM [...] place. Date/Time Current Smoking Status Comment Catie deandray Mar 22, 2024 12:43 PM VA-TOBACCO NEVER USED [facility] Tobacco Use History This section includes a history of the smoking, or tobacco-related health factors, that were collected on or before the date of the Encounter. The data comes from the [place] facility where the Encounter took place. Date/Time Smoking Status/Tobacco Use Comment F gerardo Mar 26, 2021 02:25 PM VA-TOBACCO NEVER USED [facility] Advance Directives: All historical and current Section Date Range: From patient's date of to the date document was created. This section includes ALL of a patient's completed or amended [place] Advance and Rescinded Directives. The entries below indicate that a directive exists for the patient, but an actual copy is not included with this document. The data comes from all [place] facilities. Date Advance Directives Provider Source Nov 04, 2016 ADVANCE DIRECTIVE RONY URRUTIA [facility] Encounter Notes: All associated encounter notes This section contains the clinical notes associated to the Encounter. 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 /shantel SHERIDAN REGISTERED NURSE Signed: 05/28/2024 09:12 05/28/2024 ADDENDUM STATUS: COMPLETED Provider was added to previous note. /shantel SHERIDAN REGISTERED NURSE Signed: 05/28/2024 09:47 LUCIA SHERIDAN
--- OUTSIDE RECORDS SUMMARY | 2024-07-26 17:00 | XMS_ITS | Encounter Summary ---
Author Name Department [place] Organization [place] Address [address] [place] [id number] Care Team Providers Care Systems Engineer Name Role Phone WAYNE WHEATLEY Primary [facility] Insurance Providers: All historical and current [...] Name Patient's Relationship to Policy [facility]) MEDICARE ADVANTAGE [facility]) Aug 25[facility] 2001 [facility]) [id number] ADRIANA GELLER PATIENT MEDICARE ([facility]) MEDICARE () PART A Oct 23, 2016 PART A [id number] QUE GELLER PATIENT MEDICARE ([facility]) MEDICARE () PART B Oct 23, 2016 PART B [id number] QUE GELLER PATIENT MEDICARE ([facility]) MEDICARE () PART B Jul 25, 2011 PART B [id number] 97A QUE GELLER PATIENT MEDICARE ([facility]) MEDICARE (M) PART B Jul 25, 2011 PART B [id number] 97A QUE GELLER PATIENT MEDICARE (WNR) MEDICARE (M) PART B Jul 25, 2011 PART B [id number] QUE GELLER PATIENT MEDICARE (WNR) MEDICARE (M) PART A Apr 24, 2004 PART A [id number] [phone] QUE GELLER PATIENT MEDICARE (WNR) MEDICARE (M) PART A Apr 24, 2004 PART A [id number] 97A QUE GELLER PATIENT MEDICARE (WNR) MEDICARE (M) PART A Apr 24, 2004 PART A [id number] [phone] QUE GELLER PATIENT Selected Encounter This section includes the information on record at [place] for the Encounter. Date/Time Encounter Type Encounter Description Reason Pro vider Source IHE Encounter Template Text not used by [place] Advance Directives: All historical and current Section Date Range: From patient's date of to the date document was created. This section includes ALL of a patient's completed or amended [place] Advance and Rescinded Directives. The entries below indicate that a directive exists for the patient, but an actual copy is not included with this document. The data comes from all [place] facilities. Date Advance Directives Provider Source Nov 04, 2016 ADVANCE DIRECTIVE RONY URRUTIA [place] CNTR L EDERTRZeina MART[facility]
--- OUTSIDE RECORDS SUMMARY | 2024-07-26 17:00 | XMS_ITS | Encounter Summary ---
Author Name [facility] [place] Organization [facility] [place] Address [address] [place] [address] Care Team Providers Care Warehouse Record Clerk Name Role Phone WAYNE WHEATLEY Primary Care [...] [facility]) MEDICARE ADVANTAGE [facility] ([facility]) Aug 25, 2001 [facility] ([facility]) [id number] DOMADRIANA SALINAS JOHN PATIENT MEDICARE ([facility]) MEDICARE (M) PART A Oct 23, 2016 PART A [id number] QUE GELLER PATIENT MEDICARE ([facility]) MEDICARE (M) PART B Oct 23, 2016 PART B [id number] QUE GELLER PATIENT MEDICARE ([facility]) MEDICARE (M) PART B Jul 25, 2011 PART B [id number] [phone] QUE GELLER PATIENT MEDICARE ([facility]) MEDICARE (M) PART B Jul 25, 2011 PART B [id number] QUE GELLER PATIENT MEDICARE (WNR) MEDICARE (M) PART B Jul 25, 2011 PART B [id number] QUE GELLER PATIENT MEDICARE (WNR) MEDICARE (M) PART A Apr 24, 2004 PART A [id number] QUE GELLER PATIENT MEDICARE (WNR) MEDICARE (M) PART A Apr 24, 2004 PART A [id number] QUE GELLER PATIENT MEDICARE (WNR) MEDICARE (M) PART A Apr 24, 2004 PART A [id number] QUE GELLER PATIENT Selected Encounter This section includes the information on record at [place] for the Encounter. Date/Time Encounter Type Encounter Description Reason Pro vider Source May 26, 2024 12:44 PM Outpatient Encounter ADMIN PAT ACTIVTIES (MASNONCT) IHE Encounter Template Text not used by [place] Plan of Treatment: Future Appointments (+ 6 months) and Future Tests (+/- 45 days) The Plan of Treatment section includes future care activities for the patient [facility] This section includes future appointments and future orders which are active, pending or scheduled. Future Appointments This section includes appointments that were scheduled to occur 6 months from the date of the Encounter, up to a maximum of 20 appointments. The data comes from all [place] treatment facilities. Appointment Date/Time Appointment Type Appointme nt Facility Name Jun 26, 2024 02:30 PM AMBULATORY - MEDICINE [place] [facility] [place] [facility] Jun 26, 2024 03:00 PM AMBULATORY - MEDICINE [place] [facility] [place] [facility] Jun 26, 2024 03:15 PM AMBULATORY - MEDICINE [place] [facility] [place] [facility] Jul 03, 2024 04:00 PM [facility]ULATORY - [facility]ICINE [place] [facility] Sep 04, 2024 04:00 PM AMBULATORY - [facility]ICINE [place] [facility] Sep 11, 2024 01:00 PM [facility] Oct 24, 2024 04:00 PM AMBULATORY - NONE [place] [facility] [place] [facility] Oct 30, 2024 01:00 PM AMBULATORY - MEDICINE [facility] Social History: Smoking Status (Most current) and Tobacco Use (All prior to encounter date) This section includes the most current, and the historical, smoking and tobacco- related health factors from the [place] facility where the Encounter took place. Current Smoking Status This section includes the most current smoking, or tobacco-related health factor, from the [place] facility where the Encounter took place. Date/Time Current Smoking Status Comment Catie thompson Mar 22, 2024 12:43 PM VA-TOBACCO NEVER USED [facility] Tobacco Use History This section includes a history of the smoking, or tobacco-related health factors, that were collected on or before the date of the Encounter. The data comes from the [place] facility where the Encounter took place. Date/Time Smoking Status/Tobacco Use Comment F gerardo Mar 26, 2021 02:25 PM VA-TOBACCO NEVER USED [facility] Advance Directives: All historical and current Section Date Range: From patient's date of to the date document was created. This section includes ALL of a patient's completed or amended [place] Advance and Rescinded Directives. The entries below indicate that a directive exists for the patient, but an actual copy is not included with this document. The data comes from all [place] facilities. Date Advance Directives Provider Source Nov 04, 2016 ADVANCE DIRECTIVE RONY URRUTIA [facility] Encounter Notes: All associated encounter notes This section contains the clinical notes associated to the Encounter. Date/Time Encounter Note(s) Provider Source May 30, 2024 03:54 PM ADDENDUM: LOCAL TITLE: Addendum STANDARD TITLE: ADDENDUM DATE OF NOTE: MAY 30, 2024@15:54:11 ENTRY DATE: MAY 30, 2024@15:54:12 AUTHOR: WAYNE WHEATLEY COSIGNER: URGENCY: STATUS: COMPLETED I telephoned the patient and discussed his issues in detail. His complaint is quite vague of abdominal cramping. Dicyclomine has helped his symptoms. I reviewed GI notes from [place] [facility] which noted normal gastric emptying study and EGD that showed gastritis. He is quite frustrated that the symptoms return when he does not take the medications. The patient is requesting a referral to [place] gastroenterology in [place] if possible which I have placed. /es/ BRAIN WHEATLEY, MAINTENANCE MECHANIC SUPERVISOR NURSE PRACTITIONER Signed: 05/30/2024 15:57 Receipt Acknowledged By: 05/31/2024 11:48 /shantel CLOUD NURSE --- Original Document --- 05/26/24 CCC: SCHEDULING ADMINISTRATION: Verified Patient Demographics Successfully verified Demographics Shaila called requesting referral to gastro he was recently seen in ER and is still having cramping, nauseau and vomitting. was given prescriptions and getting filled at local pharmacy but is requesting PCP prescribe more Reglen 10 mg, Dicyclosamine 10 mg. Please call him @ /jose cruz/ JAMILAH JETER Signed: 05/26/2024 12:47 Receipt Acknowledged By: 05/30/2024 15:15 /shantel WHEATLEY NP NURSE PRACTITIONER 05/28/2024 09:14 /shantel CLOUD NURSE 05/28/2024 ADDENDUM STATUS: COMPLETED Telephone call returned to . requested new consult for new provider: [facility] and to request medication refills from medications prescribed during ER visit. Consult and refill requests sent to provider for review. advised PCP has to review medication requests and decide, as he was not the original prescriber. verbalized understanding and agreement /shantel SHERIDAN REGISTERED NURSE Signed: 05/28/2024 09:20 05/28/2024 ADDENDUM STATUS: COMPLETED MSA: Please request discharge summary from [facility] for recent ER visit, thanks. /shantel CLOUD NURSE Signed: 05/28/2024 09:57 05/28/2024 ADDENDUM STATUS: COMPLETED MSA: Shaila was seen at [facility] ER. Please request discharge summary, thanks. /shantel CLOUD NURSE Signed: 05/28/2024 10:25 Receipt Acknowledged By: 05/29/2024 09:06 /shantel PEPPER ADVANCE PIN ATTACHER 05/29/2024 ADDENDUM STATUS: COMPLETED THIS ATM MECHANIC SENT FAX REQUEST FOR RECORDS FROM [facility] [phone] /jose cruz/ ТАТЬЯНА PEPPER ADVANCE PIN ATTACHER Signed: 05/29/2024 09:06 05/30/2024 ADDENDUM STATUS: COMPLETED Please note previous entry. The patient has a current active GI consult in place with [place] [facility]. Please advise him to contact [facility] to schedule an appointment. Regarding Reglan: This medication is contraindicated with paroxetine which the patient is prescribed. Significant and dangerous side effects that can occur if taken together. Regarding dicyclomine: A short course of dicyclomine has been ordered and can be picked up at the window. If the patient would prefer this medication to be mailed, please advise. Please contact the patient and convey this information. If he should have any difficulty with making an appointment with [facility], please advise the pack so that we can assist. /jose cruz/ WAYNE WHEATLEY NP NURSE PRACTITIONER Signed: 05/30/2024 15:30 Receipt Acknowledged By: * AWAITING SIGNATURE * LUCIA SHERIDAN DAVID A [facility] [place] [facility] May 30, 2024 03:28 PM ADDENDUM: LOCAL TITLE: Addendum STANDARD TITLE: ADDENDUM DATE OF NOTE: MAY 30, 2024@15:28:41 ENTRY DATE: MAY 30, 2024@15:28:42 AUTHOR: WAYNE WHEATLEY COSIGNER: URGENCY: STATUS: COMPLETED Please note previous entry. The patient [facility] a [facility]. Please advise him to contact [facility] to schedule an appointment. Regarding Reglan: This medication is contraindicated with paroxetine which the patient is prescribed. Significant and dangerous side effects that can occur if taken together. Regarding dicyclomine: A short course of dicyclomine has been ordered and can be picked up at the window. If the patient would prefer this medication to be mailed, please advise. Please contact the patient and convey this information. If he should have any difficulty with making an appointment with [facility], please advise the pack so that we can assist. /jose cruz/ WAYNE WHEATLEY NP NURSE PRACTITIONER Signed: 05/30/2024 15:30 Receipt Acknowledged By: 05/31/2024 11:51 /shantel SHERIDAN REGISTERED NURSE --- Original Document --- 05/26/24 CCC: SCHEDULING ADMINISTRATION: Verified Patient Demographics Successfully verified Demographics Mumford called requesting referral to gastro he was recently seen in ER and is still having cramping, nauseau and vomitting. was given prescriptions and getting filled at local pharmacy but is requesting PCP prescribe more Reglen 10 mg, Dicyclosamine 10 mg. Please call him @ /jose cruz/ JAMILAH JETER Signed: 05/26/2024 12:47 Receipt Acknowledged By: 05/30/2024 15:15 /jose cruz/ WAYNE WHEATLEY NP NURSE PRACTITIONER 05/28/2024 09:14 /jose cruz/ LUCIA SHERIDAN REGISTERED NURSE 05/28/2024 ADDENDUM STATUS: COMPLETED Telephone call returned to . Mumford requested new consult for new provider: [facility] and to request medication refills from medications prescribed during ER visit. Consult and refill requests sent to provider for review. advised PCP has to review medication requests and decide, as he was not the original prescriber. verbalized understanding and agreement /shantel SHERIDAN REGISTERED NURSE Signed: 05/28/2024 09:20 05/28/2024 ADDENDUM STATUS: COMPLETED MSA: Please request discharge summary from [facility] for recent ER visit, thanks. /shantel SHERIDAN REGISTERED NURSE Signed: 05/28/2024 09:57 05/28/2024 ADDENDUM STATUS: COMPLETED MSA: Shaila was seen at [facility] ER. Please request discharge summary, thanks. /shantel SHERIDAN REGISTERED NURSE Signed: 05/28/2024 10:25 Receipt Acknowledged By: 05/29/2024 09:06 /jose cruz/ ТАТЬЯНА PEPPER ADVANCE PIN ATTACHER 05/29/2024 ADDENDUM STATUS: COMPLETED THIS ATM MECHANIC SENT FAX REQUEST FOR RECORDS FROM [place] [phone] /shantel PEPPER ADVANCE PIN ATTACHER Signed: 05/29/2024 09:06 05/30/2024 ADDENDUM STATUS: COMPLETED I telephoned the patient and discussed his issues in detail. His complaint is quite vague of abdominal cramping. Dicyclomine has helped his symptoms. I reviewed GI notes from [place] [facility] which noted normal gastric emptying study and EGD that showed gastritis. He is quite frustrated that the symptoms return when he does not take the medications. The patient is requesting a referral to [place] gastroenterology in [place] if possible which I have placed. /jose cruz/ WAYNE WHEATLEY NP NURSE PRACTITIONER Signed: 05/30/2024 15:57 Receipt Acknowledged By: 05/31/2024 11:48 /shantel SHERIDAN REGISTERED NURSE 05/31/2024 ADDENDUM STATUS: UNSIGNED You may not VIEW this UNSIGNED Addendum. WAYNE WHEATLEY [place] [facility] [place] [facility] May 28, 2024 10:23 AM ADDENDUM: LOCAL TITLE: Addendum STANDARD TITLE: ADDENDUM DATE OF NOTE: MAY 28, 2024@10:23:48 ENTRY DATE: MAY 28, 2024@10:23:49 AUTHOR: LUCIA SHERIDAN EXP COSIGNER: URGENCY: STATUS: COMPLETED MSA: Mumford was seen at [facility] ER. Please request discharge summary, thanks. /jose cruz/ LUCIA SHERIDAN REGISTERED NURSE Signed: 05/28/2024 10:25 Receipt Acknowledged By: 05/29/2024 09:06 /shantel PEPPER ADVANCE PIN ATTACHER --- Original Document --- 05/26/24 CCC: SCHEDULING ADMINISTRATION: Verified Patient Demographics Successfully verified Demographics called requesting referral to gastro he was recently seen in ER and is still having cramping, nauseau and vomitting. was given prescriptions and getting filled at local pharmacy but is requesting PCP prescribe more Reglen 10 mg, Dicyclosamine 10 mg. Please call him @ /es/ JAMILAH JETER Signed: 05/26/2024 12:47 Receipt Acknowledged By: * AWAITING SIGNATURE * WAYNE WHEATLEY 05/28/2024 09:14 /jose cruz/ LUCIA SHERIDAN REGISTERED NURSE 05/28/2024 ADDENDUM STATUS: COMPLETED Telephone call returned to . Mumford requested new consult for new provider: [facility] and to request medication refills from medications prescribed during ER visit. Consult and refill requests sent to provider for review. Mumford advised PCP has to review medication requests and decide, as he was not the original prescriber. verbalized understanding and agreement /shantel SHERIDAN REGISTERED NURSE Signed: 05/28/2024 09:20 05/28/2024 ADDENDUM STATUS: COMPLETED MSA: Please request discharge summary from [facility] for recent ER visit, thanks. /shantel SHERIDAN REGISTERED NURSE Signed: 05/28/2024 09:57 05/29/2024 ADDENDUM STATUS: COMPLETED THIS ATM MECHANIC SENT FAX REQUEST FOR RECORDS FROM [facility] [phone] /jose cruz/ ТАТЬЯНА PEPPER ADVANCE PIN ATTACHER Signed: 05/29/2024 09:06 LUCIA SHERIDAN [facility] [place] [facility] May 26, 2024 12:44 PM ADMINISTRATIVE NOTE: LOCAL TITLE: CCC: SCHEDULING ADMINISTRATION STANDARD TITLE: ADMINISTRATIVE NOTE DATE OF NOTE: MAY 26, 2024@12:44 ENTRY DATE: MAY 26, 2024@12:44:40 AUTHOR: SHINE JETER COSIGNER: URGENCY: STATUS: COMPLETED CCC: SCHEDULING ADMINISTRATION Has ADDENDA Verified Patient Demographics Successfully verified Demographics called requesting referral to gastro he was recently seen in ER and is still having cramping, nauseau and vomitting. Mumford was given prescriptions and getting filled at local pharmacy but is requesting PCP prescribe more Reglen 10 mg, Dicyclosamine 10 mg. Please call him @ /jose cruz/ JAMILAH JETER Signed: 05/26/2024 12:47 Receipt Acknowledged By: 05/30/2024 15:15 /jose cruz/ WAYNE WHEATLEY NP NURSE PRACTITIONER 05/28/2024 09:14 /jose cruz/ LUCIA SHERIDAN REGISTERED NURSE 05/28/2024 ADDENDUM STATUS: COMPLETED Telephone call returned to . Mumford requested new consult for new provider: [facility] and to request medication refills from medications prescribed during ER visit. Consult and refill requests sent to provider for review. advised PCP has to review medication requests and decide, as he was not the original prescriber. verbalized understanding and agreement /shantel SHERIDAN REGISTERED NURSE Signed: 05/28/2024 09:20 05/28/2024 ADDENDUM STATUS: COMPLETED MSA: Please request discharge summary from [facility] for recent ER visit, thanks. /shantel SHERIDAN REGISTERED NURSE Signed: 05/28/2024 09:57 05/28/2024 ADDENDUM STATUS: COMPLETED MSA: Shaila was seen at [facility] ER. Please request discharge summary, thanks. /shantel SHERIDAN REGISTERED NURSE Signed: 05/28/2024 10:25 Receipt Acknowledged By: 05/29/2024 09:06 /jose cruz/ ТАТЬЯНА URBAN PIN ATTACHER 05/29/2024 ADDENDUM STATUS: COMPLETED THIS ATM MECHANIC SENT FAX REQUEST FOR RECORDS FROM [facility] [phone] /shantel PEPPER ADVANCE PIN ATTACHER Signed: 05/29/2024 09:06 05/30/2024 ADDENDUM STATUS: COMPLETED Please note previous entry. The patient has a current active GI consult in place with [facility]. Please advise him to contact [facility] to schedule an appointment. Regarding Reglan: This medication is contraindicated with paroxetine which the patient is prescribed. Significant and dangerous side effects that can occur if taken together. Regarding dicyclomine: A short course of dicyclomine has been ordered and can be picked up at the window. If the patient would prefer this medication to be mailed, please advise. Please contact the patient and convey this information. If he should have any difficulty with making an appointment with [facility], please advise the pack so that we can assist. /jose cruz/ WAYNE WHEATLEY NP NURSE PRACTITIONER Signed: 05/30/2024 15:30 Receipt Acknowledged By: 05/31/2024 11:51 /shantel SHERIDAN REGISTERED NURSE 05/30/2024 ADDENDUM STATUS: COMPLETED I telephoned the patient and discussed his issues in detail. His complaint is quite vague of abdominal cramping. Dicyclomine has helped his symptoms. I reviewed GI notes from [facility] which noted normal gastric emptying study and EGD that showed gastritis. He is quite frustrated that the symptoms return when he does not take the medications. The patient is requesting a referral to [place] gastroenterology in [place] if possible which I have placed. /jose cruz/ WAYNE WHEATLEY NP NURSE PRACTITIONER Signed: 05/30/2024 15:57 Receipt Acknowledged By: 05/31/2024 11:48 /shantel SHERIDAN REGISTERED NURSE 05/31/2024 ADDENDUM STATUS: COMPLETED Telephone call to to let him know referral was already in place for [facility] and he can call to schedule an appt. Mumford verbalized understanding and agreement. /shantel SHERIDAN REGISTERED NURSE Signed: 05/31/2024 11:54 JAMILAH JETER [place] [facility] [place]
--- OUTSIDE RECORDS SUMMARY | 2024-07-26 17:00 | XMS_ITS | Encounter Summary ---
Author Name [facility] [place] Address [address] [place] [address] Care Team Providers Care Pilot Plant Operator Name Role Phone WAYNE WHEATLEY Primary [...] Name Patient's Relationship to Policy [facility]) MEDICARE ADVANTAGE [facility] ([facility]) Aug 25, 2001 [facility] ([facility]) [id number] DOMADRIANA SALINAS JOHN PATIENT MEDICARE ([facility]) MEDICARE (M) PART A Oct 23, 2016 PART A [id number] [phone] [phone] QUE GELLER PATIENT MEDICARE ([facility]) MEDICARE (M) PART B Oct 23, 2016 PART B [id number] QUE GELLER PATIENT MEDICARE ([facility]) MEDICARE (M) PART B Jul 25, 2011 PART B [id number] QUE GELLER PATIENT MEDICARE ([facility]) MEDICARE (M) PART B Jul 25, 2011 PART B [id number] 97A QUE GELLER PATIENT MEDICARE (WNR) MEDICARE (M) PART B Jul 25, 2011 PART B [id number] QUE GELLER PATIENT MEDICARE (WNR) MEDICARE (M) PART A Apr 24, 2004 PART A [id number] [phone] QUE GELLER PATIENT MEDICARE (WNR) MEDICARE (M) PART A Apr 24, 2004 PART A [id number] [phone] QUE GELLER PATIENT MEDICARE (WNR) MEDICARE (M) PART A Apr 24, 2004 PART A [id number] QUE GELLER PATIENT Selected Encounter This section includes the information on record at [place] for the Encounter. Date/Time Encounter Type Encounter Description Reason Pro vider Source Jun 03, 2024 09:30 PM Outpatient Encounter ADMIN PAT ACTIVTIES (MASNONCT) IHE Encounter Template Text not used by [place] Plan of Treatment: Future Appointments (+ 6 months) and Future Tests (+/- 45 days) The Plan of Treatment section includes future care activities for the [facility] [place] [facility] This section includes future appointments and [...] - MEDICINE [place] [facility] [place] [facility] Jun 26, 2024 03:00 PM AMBULATORY - MEDICINE [place] [facility] [place] [facility] Jun 26, 2024 03:15 PM AMBULATORY - MEDICINE [place] [facility] [place] [facility] Jul 03, 2024 04:00 PM AMBULATORY - [place]ICINE [place] [facility] Sep 04, 2024 04:00 PM AMBULATORY - [facility]ICINE [place] [facility] Sep 11, 2024 01:00 PM [facility] Oct 24, 2024 04:00 PM AMBULATORY - NONE [place] [facility] [place] [facility] Oct 30, 2024 01:00 PM AMBULATORY - MEDICINE [facility] Social History: Smoking Status (Most current) and [...] Current Smoking Status Comment [facility] Mar 22, 2024 12:43 PM VA-TOBACCO NEVER USED [facility] Tobacco Use History This section includes a history of the smoking, or tobacco-related health factors, that were collected on or before the date of the Encounter. The data comes from the [place] facility where the Encounter took place. Date/Time Smoking Status/Tobacco Use Comment F gerardo Mar 26, 2021 02:25 PM VA-TOBACCO NEVER USED [facility] Advance Directives: All historical and [...] Nov 04, 2016 ADVANCE DIRECTIVE [facility]Y [facility] Encounter Notes: All associated encounter notes This section contains the clinical notes associated to the Encounter. Date/Time Encounter Note(s) Provider Source Jun 03, 2024 09:30 PM ADMINISTRATIVE NOT E: LOCAL TITLE: CCC: SCHEDULING ADMINISTRATION STANDARD TITLE: ADMINISTRATIVE NOTE DATE OF NOTE: JUN 03, 2024@21:30 ENTRY DATE: JUN 03, 2024@21:31:04 AUTHOR: SIMONE CARABALLO EXP COSIGNER: URGENCY: STATUS: COMPLETED [facility]: SCHEDULING ADMINISTRATION Has ADDENDA Verify Patient Demographics Successfully verified patient demographics Other/General comments: called to request a medication called Xstamza for chronic pain. Please call . declined [facility] nurse triage. Thank you. /shantel CARABALLO V2 [facility] AMSA Signed: 06/03/2024 21:33 Receipt Acknowledged By: 06/05/2024 10:44 /jose cruz/ LUCIA SHERIDAN REGISTERED NURSE 06/05/2024 ADDENDUM STATUS: COMPLETED Telephone call returned to , no answer. Generic voicemail left to return call to clinic when available. /shantel SHERIDAN REGISTERED NURSE Signed: 06/05/2024 10:46 SIM[facility] CARABALLO [facility]
--- OUTSIDE RECORDS SUMMARY | 2024-07-26 17:00 | XMS_ITS | Encounter Summary ---
Author Name [place] Address [address] [place] [address] Care Team Providers Care Angular Js Developer Name Role Phone WAYNE WHEATLEY Primary Care [...] Name Patient's Relationship to Policy [facility]) MEDICARE ADVANTAGE [facility] ([facility]) Aug 25, 2001 [facility] ([facility]) [id number] DOMADRIANA SALINAS JOHN PATIENT MEDICARE ([facility]) MEDICARE (M) PART A Oct 23, 2016 PART A [id number] QUE GELLER PATIENT MEDICARE ([facility]) MEDICARE (M) PART B Oct 23, 2016 PART B [id number] QUE GELLER PATIENT MEDICARE ([facility]) MEDICARE (M) PART B Jul 25, 2011 PART B [id number] [phone] QUE GELLER PATIENT MEDICARE ([facility]) MEDICARE (M) PART B Jul 25, 2011 PART B [id number] 97A QUE GELLER PATIENT MEDICARE (WNR) MEDICARE (M) PART B Jul 25, 2011 PART B [id number] QUE GELLER PATIENT MEDICARE (WNR) MEDICARE (M) PART A Apr 24, 2004 PART A [id number] 97A QUE GELLER PATIENT MEDICARE (WNR) MEDICARE (M) PART A Apr 24, 2004 PART A [id number] 97A QUE GELLER PATIENT MEDICARE (WNR) MEDICARE (M) PART A Apr 24, 2004 PART A [id number] QUE GELLER PATIENT Selected Encounter This section includes the information on record at [place] for the Encounter. Date/Time Encounter Type Encounter Description Reason Pro vider Source May 25, 2024 05:03 PM Outpatient Encounter ADMIN PAT ACTIVTIES (MASNONCT) IHE Encounter Template Text not used by [place] Plan of Treatment: Future Appointments (+ 6 months) and Future Tests (+/- 45 days) The Plan of Treatment section includes future care activities for the patient from [facility] [place] [facility]. This section includes future appointments and future orders which are active, pending or scheduled. Future Appointments This section includes appointments that were scheduled to occur 6 months from the date of the Encounter, up to a maximum of 20 appointments. The data comes from all [place] treatment facilities. Appointment Date/Time Appointment Type Appointme nt Facility Name Jun 26, 2024 02:30 PM AMBULATORY - [place]ICINE [place] [facility] [facility] Jun 26, 2024 03:00 PM AMBULATORY - MEDICINE [place] [facility] [place] [facility] Jun 26, 2024 03:15 PM AMBULATORY - MEDICINE [place] [facility] [facility] Jul 03, 2024 04:00 PM [facility]ORY - [facility]ICINE [place] [facility] Sep 04, 2024 04:00 PM [facility]ORY - [facility]IC[facility] [place] [facility] Sep 11, 2024 01:00 PM [facility] Oct 24, 2024 04:00 PM AMBULATORY - NONE [place] [facility] [place] [facility] Oct 30, 2024 01:00 PM AMBULATORY - MEDICINE [facility] Social History: Smoking Status (Most current) and Tobacco Use (All prior to encounter date) This section includes the most current, and the historical, smoking and tobacco- related health factors from the [place] facility where the Encounter took place. Current Smoking Status This section includes the most current smoking, or tobacco-related health factor, from the [place] facility where the Encounter took place. Date/Time Current Smoking Status Comment Facil ity Mar 22, 2024 12:43 PM VA-TOBACCO NEVER USED [facility] Tobacco Use History This section includes a history of the smoking, or tobacco-related health factors, that were collected on or before the date of the Encounter. The data comes from the [place] facility where the Encounter took place. Date/Time Smoking Status/Tobacco Use Comment F acmartina Mar 26, 2021 02:25 PM VA-TOBACCO NEVER USED [facility] Advance Directives: All historical and current Section Date Range: From patient's date of to the date document was created. This section includes ALL of a patient's completed or amended [place] Advance and Rescinded Directives. The entries below indicate that a directive exists for the patient, but an actual copy is not included with this document. The data comes from all [place] facilities. Date Advance Directives Provider Source Nov 04, 2016 ADVANCE DIRECTIVE [facility] Encounter Notes: All associated encounter notes This section contains the clinical notes associated to the Encounter. Date/Time Encounter Note(s) Provider Source May 30, 2024 03:11 PM ADDENDUM: LOCAL TITLE: Addendum STANDARD TITLE: ADDENDUM DATE OF NOTE: MAY 30, 2024@15:11:11 ENTRY DATE: MAY 30, 2024@15:11:11 AUTHOR: WAYNE WHEATLEY EXP COSIGNER: URGENCY: STATUS: COMPLETED has a current GI consult in place. I suggest he contact [facility] as needed for ongoing evaluation and treament of gastroparesis or other GI issues. /jose cruz/ WAYNE WHEATLEY NP NURSE PRACTITIONER Signed: 05/30/2024 15:12 Receipt Acknowledged By: 05/31/2024 11:45 /jose cruz/ LUCIA SHERIDAN REGISTERED NURSE 06/01/2024 11:49 /es/ GALINDO MCCRACKEN LPN LPN --- Original Document --- 05/25/24 CCC: SCHEDULING ADMINISTRATION: Patient Demographics Patient Name: KAM GELLER Patient Primary Phone: [phone] Patient Primary Address: [place] [address] Patient : 1950 Patient Age: 73 Current Location: Home Caller/Recipient Relation to Patient: Other If Other Describe Relation to Patient: Spouse Caller Name: Mei Administrative Administrative Note Reason: [facility] Care / [facility] Act Administrative Note Comments: Patient's spouse Mei called to advise the patient's PACT team that the patient was on his way to the emergency room at [facility]. Per Mei the patient has been dealing with gastric issues for months and no one can find anything wrong with him. Patient has been vomiting, nauseous & can't eat. Patient has seen a dessert cup machine feeder as well with no results. Mei advised to call when the patient is discharged. IMPORTANT: This note was created by [facility] staff. Please do not alert the staff member by adding them as a signer for future communications. Alerts are not monitored by this user. /es/ ANIRUDH KAUR 1 [facility] LEAD ANIRUDH Signed: 05/25/2024 17:03 Receipt Acknowledged By: 05/28/2024 09:22 /es/ LUCIA SHERIDAN REGISTERED NURSE 05/28/2024 09:31 /es/ GALINDO MCCRACKEN LPN LPN 05/28/2024 ADDENDUM STATUS: COMPLETED left voicemail stated referred from Triage Nurse to contact [facility] for ongoing GI issues. This is being referred to PCP/PACT to contact , if wants to see a different GI provider other than his current active auth with [facility], I new consult would be needed. /es/ HAYDE ASHLEY SONG LYRICIST Signed: 05/28/2024 08:05 Receipt Acknowledged By: 05/30/2024 15:09 /shantel WHEATLEY NP NURSE PRACTITIONER * AWAITING SIGNATURE * ALEN URIBE 05/28/2024 09:14 /shantel SHERIDAN REGISTERED NURSE 05/28/2024 ADDENDUM STATUS: COMPLETED New consult placed, awaiting review by provider. /shantel SHERIDAN REGISTERED NURSE Signed: 05/28/2024 09:22 WAYNE WHEATLEY [place] [facility] [place] [facility] May 28, 2024 08:03 AM ADDENDUM: LOCAL TITLE: Addendum STANDARD TITLE: ADDENDUM DATE OF NOTE: MAY 28, 2024@08:03:59 ENTRY DATE: MAY 28, 2024@08:04:01 AUTHOR: HAYDE ASHLEY COSIGNER: URGENCY: STATUS: COMPLETED [place] left voicemail stated referred from Triage Nurse to contact [facility] for ongoing GI issues. This is being referred to PCP/PACT to contact , if wants to see a different GI provider other than his current active auth with [facility], I new consult would be needed. /shantel ASHLEY SONG LYRICIST Signed: 05/28/2024 08:05 Receipt Acknowledged By: 05/30/2024 15:09 /shantel WHEATLEY NP NURSE PRACTITIONER * AWAITING SIGNATURE * ALEN URIBE 05/28/2024 09:14 /shantel SHERIDAN REGISTERED NURSE --- Original Document --- 05/25/24 CCC: SCHEDULING ADMINISTRATION: Patient Demographics Patient Name: KAM GELLER Patient Primary Phone: [phone] Patient Primary Address: [address] [place] [address] Patient : 1950 Patient Age: 73 Current Location: Home Caller/Recipient Relation to Patient: Other If Other Describe Relation to Patient: Spouse Caller Name: Mei Administrative Administrative Note Reason: [facility] Administrative Note Comments: Patient's spouse Mei called to advise the patient's PACT team that the patient was on his way to the emergency room at [facility]. Per Mei the patient has been dealing with gastric issues for months and no one can find anything wrong with him. Patient has been vomiting, nauseous & can't eat. Patient has seen a dessert cup machine feeder as well with no results. Mei advised to call when the patient is discharged. IMPORTANT: This note was created by [facility] staff. Please do not alert the staff member by adding them as a signer for future communications. Alerts are not monitored by this user. /jose cruz/ ANIRUDH KAUR 1 CCC LEAD ANIRUDH Signed: 05/25/2024 17:03 Receipt Acknowledged By: 05/28/2024 09:22 /jose cruz/ LUCIA SHERIDAN REGISTERED NURSE 05/28/2024 09:31 /jose cruz/ GALINDO MCCRACKEN LPN LPN 05/28/2024 ADDENDUM STATUS: COMPLETED New consult placed, awaiting review by provider. /shantel SHERIDAN REGISTERED NURSE Signed: 05/28/2024 09:22 HAYDE ASHLEY [place] [facility] [place] [facility] May 25, 2024 05:03 PM ADMINISTRATIVE NOTE: LOCAL TITLE: CCC: SCHEDULING ADMINISTRATION STANDARD TITLE: ADMINISTRATIVE NOTE DATE OF NOTE: MAY 25, 2024@17:03:25 ENTRY DATE: MAY 25, 2024@17:03:25 AUTHOR: BONNIE RENTERIA EXP COSIGNER: URGENCY: STATUS: COMPLETED CCC: SCHEDULING ADMINISTRATION Has ADDENDA Patient Demographics Patient Name: KAM GELLER Patient Primary Phone: [phone] Patient Primary [address]: [address] [place] [id number] Patient : 1950 Patient Age: 73 Current Location: Home Caller/Recipient Relation to Patient: Other If Other Describe Relation to Patient: Spouse Caller Name: Mei Administrative Administrative Note Reason: [facility] Administrative Note Comments: Patient's spouse Mei called to advise the patient's PACT team that the patient was on his way to the emergency room at [facility]. Per Mei the patient has been dealing with gastric issues for months and no one can find anything wrong with him. Patient has been vomiting, nauseous & can't eat. Patient has seen a dessert cup machine feeder as well with no results. Mei advised to call when the patient is discharged. IMPORTANT: This note was created by [facility] staff. Please do not alert the staff member by adding them as a signer for future communications. Alerts are not monitored by this user. /es/ ANIRUDH KAUR 1 [facility] LEAD ANIRUDH Signed: 05/25/2024 17:03 Receipt Acknowledged By: 05/28/2024 09:22 /jose cruz/ LUCIA SHERIDAN REGISTERED NURSE 05/28/2024 09:31 /es/ GALINDO MCCRACKEN LPN LPN 05/28/2024 ADDENDUM STATUS: COMPLETED left voicemail stated referred from Triage Nurse to contact [facility] for ongoing GI issues. This is being referred to PCP/PACT to contact , if wants to see a different GI provider other than his current active auth with [facility], I new consult would be needed. /es/ HAYDE ASHLEY SONG LYRICIST Signed: 05/28/2024 08:05 Receipt Acknowledged By: 05/30/2024 15:09 /es/ WAYNE WHEATLEY NP NURSE PRACTITIONER * AWAITING SIGNATURE * ALEN URIBE 05/28/2024 09:14 /jose cruz/ LUCIA SHERIDAN REGISTERED NURSE 05/28/2024 ADDENDUM STATUS: COMPLETED New consult placed, awaiting review by provider. /jose cruz/ LUCIA SHERIDAN REGISTERED NURSE Signed: 05/28/2024 09:22 05/30/2024 ADDENDUM STATUS: COMPLETED [place] has a current GI consult in place. I suggest he contact [facility] as needed for ongoing evaluation and treament of gastroparesis or other GI issues. /jose cruz/ WAYNE WHEATLEY NP NURSE PRACTITIONER Signed: 05/30/2024 15:12 Receipt Acknowledged By: * AWAITING SIGNATURE * LUCIA SHERIDAN * AWAITING SIGNATURE * GALINDO MCCRACKENBONNIE BENJAMIN CNTRL TRN [facility]
--- OUTSIDE RECORDS SUMMARY | 2024-07-26 17:00 | XMS_ITS | Encounter Summary ---
Author Name [facility] [place] Organization [place] Address [address] [place] [address] Care Team Providers Care Bond Writer Name Role Phone WAYNE WHEATLEY Primary Care [...] Name Patient's Relationship to Policy [facility]) MEDICARE ADVANTAGE [facility] ([facility]) Aug 25, 2001 [facility] ([facility]) [id number] [phone] ADRIANA GELLER PATIENT MEDICARE ([facility]) MEDICARE (M) PART A Oct 23, 2016 PART A [id number] [phone] QUE GELLER PATIENT MEDICARE ([facility]) MEDICARE (M) PART B Oct 23, 2016 PART B [id number] QUE GELLER PATIENT MEDICARE ([facility]) MEDICARE (M) PART B Jul 25, 2011 PART B [id number] [phone] QUE GELLER PATIENT MEDICARE ([facility]) MEDICARE (M) PART B Jul 25, 2011 PART B [id number] [phone] QUE GELLER PATIENT MEDICARE (WNR) MEDICARE (M) PART B Jul 25, 2011 PART B [id number] QUE GELLER PATIENT MEDICARE (WNR) MEDICARE (M) PART A Apr 24, 2004 PART A [id number] 97A QUE GELLER PATIENT MEDICARE (WNR) MEDICARE (M) PART A Apr 24, 2004 PART A [id number] 97A QUE GELLER PATIENT MEDICARE (WNR) MEDICARE (M) PART A Apr 24, 2004 PART A [id number] [phone] QUE GELLER PATIENT Selected Encounter This section includes the information on record at [place] for the Encounter. Date/Time Encounter Type Encounter Description Reason Pro vider Source May 28, 2024 03:04 PM Outpatient Encounter COMMUNITY CARE CONSULT IHE Encounter Template Text not used by [place] Plan of Treatment: Future Appointments (+ 6 months) and Future Tests (+/- 45 days) The Plan of Treatment section includes future care activities for the patient from all [place] [facility]. This section includes future appointments and future orders which are active, pending or scheduled. Future Appointments This section includes appointments that were scheduled to occur 6 months from the date of the Encounter, up to a maximum of 20 appointments. The data comes from all [place] treatment facilities. Appointment Date/Time Appointment Type Appointme nt Facility Name Jun 26, 2024 02:30 PM AMBULATORY - MEDICINE [place] [place] [facility] Jun 26, 2024 03:00 PM AMBULATORY - MEDICINE [place] [facility] [place] [facility] Jun 26, 2024 03:15 PM AMBULATORY - MEDICINE [place] [facility] [place] [facility] Jul 03, 2024 04:00 PM [facility] - [facility]IC[facility] Sep 04, 2024 04:00 PM [facility] - [facility]IC[facility] [place] [facility] Sep 11, 2024 01:00 PM [place]ORY - [place]IC[place] Oct 24, 2024 04:00 PM AMBULATORY - NONE [place] [facility] [place] [facility] Oct 30, 2024 01:00 PM AMBULATORY - [place]IC[place] Social History: Smoking Status (Most current) and Tobacco Use (All prior to encounter date) This section includes the most current, and the historical, smoking and tobacco- related health factors from the [place] facility where the Encounter took place. Current Smoking Status This section includes the most current smoking, or tobacco-related health factor, from the [place] facility where the Encounter took place. Date/Time Current Smoking Status Comment Facil [place] Mar 22, 2024 12:43 PM VA-TOBACCO NEVER USED [facility] Tobacco Use History This section includes a history of the smoking, or tobacco-related health factors, that were collected on or before the date of the Encounter. The data comes from the [place] facility where the Encounter took place. Date/Time Smoking Status/Tobacco Use Comment F gerardo Mar 26, 2021 02:25 PM VA-TOBACCO NEVER USED [facility] Advance Directives: All historical and current Section Date Range: From patient's date of to the date document was created. This section includes ALL of a patient's completed or amended [place] Advance and Rescinded Directives. The entries below indicate that a directive exists for the patient, but an actual copy is not included with this document. The data comes from all [place] facilities. Date Advance Directives Provider Source Nov 04, 2016 ADVANCE DIRECTIVE RONY URRUTIA [facility] Encounter Notes: All associated encounter notes This section contains the clinical notes associated to the Encounter. Date/Time Encounter Note(s) Provider Source May 28, 2024 03:04 PM NONVA NOTE: LOCAL TITLE: COMMUNITY CARE-SILVESTRE SELF PRESENTING CARE COORD PLAN STANDARD TITLE: NONVA NOTE DATE OF NOTE: MAY 28, 2024@15:04 ENTRY DATE: MAY 28, 2024@15:05:04 AUTHOR: PRANEETH KILLIAN EXP COSIGNER: URGENCY: STATUS: COMPLETED COMMUNITY CARE-SILVESTRE SELF PRESENTING CARE COORD PLAN NOTE Has ADDENDA Emergency Notification Intake Date Presenting to the Facility: May Method of Contact: Notified from [facility] worklist Notification ID: [id number] [facility] Referral #: [facility] Hospital Name: Hospital: [facility] Address: City: [place] State: [place] Zip Code: Phone : [facility] Facility Point of Contact: Name: Phone: Chief complaint: EXTREME NAUSEA, LOWER SEVERE STOMACH CRAMPS Primary Diagnosis: Disposition Unknown at time of intake note entry /jose cruz/ PRANEETH OLEARY Signed: 05/28/2024 15:06 Receipt Acknowledged By: 05/29/2024 12:07 /jose cruz/ LUCIA SHERIDAN REGISTERED NURSE 05/30/2024 15:27 /es/ WAYNE WHEATLEY NP NURSE PRACTITIONER 07/24/2024 08:23 /jose cruz/ Simi Ruiz MSN,RN,CCM TRANSFER/TRAVELING COORDINATOR 05/29/2024 ADDENDUM STATUS: COMPLETED Noted. /jose cruz/ LUCIA SHERIDAN REGISTERED NURSE Signed: 05/29/2024 12:07 PRANEETH KILLIAN [place]
--- OUTSIDE RECORDS SUMMARY | 2024-07-26 17:01 | XMS_ITS | Encounter Summary ---
Author Name [facility] [place] Address [address] [place] [address] Care Team Providers Care Hotbed Lever Operator Name Role Phone WAYNE WHEATLEY Primary [...] Name Patient's Relationship to Policy [facility]) MEDICARE ADVANTAGE [facility] ([facility]) Aug 25, 2001 [facility] ([facility]) [id number] [id number] DOMADRIANA SALINAS JOHN PATIENT MEDICARE ([facility]) MEDICARE (M) PART A Oct 23, 2016 PART A [id number] QUE GELLER PATIENT MEDICARE ([facility]) MEDICARE (M) PART B Oct 23, 2016 PART B [id number] QUE GELLER PATIENT MEDICARE ([facility]) MEDICARE (M) PART B Jul 25, 2011 PART B [id number] 97A QUE GELLER PATIENT MEDICARE ([facility]) MEDICARE (M) PART B Jul 25, 2011 PART B [id number] 97A QUE GELLER PATIENT MEDICARE (WNR) MEDICARE (M) PART B Jul 25, 2011 PART B [id number] QUE GELLER PATIENT MEDICARE (WNR) MEDICARE (M) PART A Apr 24, 2004 PART A [id number] 97A QUE GELLER PATIENT MEDICARE (WNR) MEDICARE (M) PART A Apr 24, 2004 PART A [id number] 97A QUE GELLER PATIENT MEDICARE (WNR) MEDICARE (M) PART A Apr 24, 2004 PART A [id number] [phone] QUE GELLER PATIENT Selected Encounter This section includes the information on record at [place] for the Encounter. Date/Time Encounter Type Encounter Description Reason Pro vider Source Jun 18, 2024 09:59 AM Outpatient Encounter ADMIN PAT ACTIVTIES (MASNONCT) IHE Encounter Template Text not used by [place] Plan of Treatment: Future Appointments (+ 6 months) and Future Tests (+/- 45 days) The Plan of Treatment section includes future care activities for the patient [facility] [place] [facility]. This section includes future appointments and [...] 26, 2024 02:30 PM AMBULATORY - [place]ICINE [place] [facility] Jun 26, 2024 03:00 PM AMBULATORY - MEDICINE [place] [facility] Jun 26, 2024 03:15 PM AMBULATORY - MEDICINE [place] [facility] Jul 03, 2024 04:00 PM [facility]ORY - [facility] Sep 04, 2024 04:00 PM AM[facility]ATORY - [facility] Sep 11, 2024 01:00 PM [facility] Oct 24, 2024 04:00 PM AMBULATORY - NONE [place] [facility] [place] [facility] Oct 30, 2024 01:00 PM AMBULATORY - MEDICINE [facility] Social History: Smoking Status [...] 22, 2024 12:43 PM VA-TOBACCO NEVER USED [facility] Tobacco Use History This section includes a history of the smoking, or tobacco-related health factors, that were collected on or before the date of the Encounter. The data comes from the [place] facility where the Encounter took place. Date/Time Smoking Status/Tobacco Use Comment F gerardo Mar 26, 2021 02:25 PM VA-TOBACCO NEVER USED [facility] Advance Directives: All historical and current Section [...] Nov 04, 2016 ADVANCE DIRECTIVE RONY URRUTIA [facility] Encounter Notes: All associated encounter notes This section contains the clinical notes associated to the Encounter. Date/Time Encounter Note(s) Provider Source Jun 18, 2024 09:59 AM ADMINISTRATIVE NOTE: LOCAL TITLE: CCC: SCHEDULING ADMINISTRATION STANDARD TITLE: ADMINISTRATIVE NOTE DATE OF NOTE: JUN 18, 2024@09:59:41 ENTRY DATE: JUN 18, 2024@09:59:41 AUTHOR: ADEOLA SOL EXP COSIGNER: URGENCY: STATUS: COMPLETED Patient Demographics Patient Name: KAM GELLER Patient Primary Phone: [phone] Patient Primary [address]: [address] [place] [id number] Patient : 1950 Patient Age: 73 Caller/Recipient Relation to Patient: Self Caller Name: KAM GELLER Administrative Administrative Note Reason: Medication Renewal [place] Medications Refill/Renewal Request: Rx # - Medication Name - Dosage - SIG - Number of Refills - Facility - Status [id number] - DICYCLOMINE HCL 20MG TAB - 1 TABLET - TAKE ONE TABLET BY MOUTH TWICE DAILY NEEDED (FOR IRRITABLE BOWEL SYNDROME) - 0 - [place] - 631BY - ACTIVE [id number] - PROCHLORPERAZINE MALEATE 10MG TAB - 1 TABLET - TAKE ONE TABLET BY MOUTH TWICE DAILY NEEDED FOR NAUSEA AND VOMITING - 0 - [place] - 631BY - ACTIVE Administrative Note Comments: 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 IMPORTANT: This note was created by [facility] staff. Please do not alert the staff member by adding them as a signer for future communications. Alerts are not monitored by this user. /jose cruz/ ADEOLA FORD 1 CCC AMSA Signed: 06/18/2024 09:59 Receipt Acknowledged By: 06/18/2024 11:15 /es/ LUCIA SHERIDAN REGISTERED NURSE 06/18/2024 11:05 /es/ WAYNE WHEATLEY NP NURSE PRACTITIONER [facility]OLA SOL [facility]
--- OUTSIDE RECORDS SUMMARY | 2024-07-26 17:01 | XMS_ITS | Encounter Summary ---
Author Name Department [place] Organization [place] Address [address] [place] [id number] Care Team Providers Care Supply Chain Vice President Name Role Phone WAYNE WHEATLEY Primary Care [...] Name Patient's Relationship to Policy [facility]) MEDICARE ADVANTAGE [facility] ([facility]) Aug 25, 2001 [facility] ([facility]) [id number] TIERNEYADRIANA RUSSO PATIENT MEDICARE ([facility]) MEDICARE (M) PART A Oct 23, 2016 PART A [id number] QUE GELLER PATIENT MEDICARE ([facility]) MEDICARE (M) PART B Oct 23, 2016 PART B [id number] QUE GELLER PATIENT MEDICARE ([facility]) MEDICARE (M) PART B Jul 25, 2011 PART B [id number] [phone] QUE GELLER PATIENT MEDICARE ([facility]) MEDICARE (M) PART B Jul 25, 2011 PART B [id number] QUE GELLER PATIENT MEDICARE (WNR) MEDICARE (M) PART B Jul 25, 2011 PART B [id number] [phone] QUE GELLER PATIENT MEDICARE (WNR) MEDICARE (M) PART A Apr 24, 2004 PART A [id number] QUE GELLER PATIENT MEDICARE (WNR) MEDICARE (M) PART A Apr 24, 2004 PART A [id number] [phone] QUE GELLER PATIENT MEDICARE (WNR) MEDICARE (M) PART A Apr 24, 2004 PART A [id number] [phone] QUE GELLER PATIENT Selected Encounter This section includes the information on record at [place] for the Encounter. Date/Time Encounter Type Encounter Description Reason Pro vider Source Jun 18, 2024 09:52 AM Outpatient Encounter PRIMARY CARE/MEDICINE IHE Encounter Template Text not used by [place] Plan of Treatment: Future Appointments (+ 6 months) and Future Tests (+/- 45 days) The Plan of Treatment section includes future care activities for the [facility] [place] [facility] This section includes future appointments and [...] - MEDICINE [place] [facility] [place] [facility] Jun 26, 2024 03:00 PM AMBULATORY - MEDICINE [place] [facility] [place] [facility] Jun 26, 2024 03:15 PM AMBULATORY - MEDICINE [place] [facility] [place] [facility] Jul 03, 2024 04:00 PM AM[facility]ULATORY - [facility]ICINE [place] [facility] Sep 04, 2024 04:00 PM AMBULATORY - MEDICINE [place] [facility] Sep 11, 2024 01:00 PM AMBULATORY - MEDICINE [place] Oct 24, 2024 04:00 PM AMBULATORY - NONE [place] [facility] [place] [facility] Oct 30, 2024 01:00 PM [...] place. Date/Time Current Smoking Status Comment Catie jay Mar 22, 2024 12:43 PM VA-TOBACCO NEVER USED [facility] Tobacco Use History This section includes a history of the smoking, or tobacco-related health factors, that were collected on or before the date of the Encounter. The data comes from the [place] facility where the Encounter took place. Date/Time Smoking Status/Tobacco Use Comment F gerardo Mar 26, 2021 02:25 PM VA-TOBACCO NEVER USED [facility] Advance Directives: All historical and current Section [...] Nov 04, 2016 ADVANCE DIRECTIVE RONY URRUTIA [facility] Encounter Notes: All associated encounter notes This section contains the clinical notes associated to the Encounter. Date/Time Encounter Note(s) Provider Source Jun 18, 2024 09:52 AM PRIMARY CARE NOTE: LOCAL TITLE: WALK-IN NOTE PRIMARY CARE (T) STANDARD TITLE: PRIMARY CARE NOTE DATE OF NOTE: JUN 18, 2024@09:52 ENTRY DATE: JUN 18, 2024@09:52:42 AUTHOR: CAMILLA MUÑOZ COSIGNER: URGENCY: STATUS: COMPLETED <====Click to Start Advanced Medical Support [place] presents to the Primary Care clinic with the following request: [ ]Medication Renewal/Refill [ ]Consultation with Team RN [ ]Symptoms [ X ]Other The [place] states they are: [ ]Waiting [ X ]Not Waiting No Walk in visit scheduled with PACT Nurse [ X ] At this encounter the 's demographics were verified. [ X ] At this encounter the 's Insurance information was verified. [ X ] At this encounter the below scheduled visits for the were discussed and appointment reminder card was offered. Future appointments: 06/26/2024 14:00 NHM/OPT/VISUAL IMAGING 06/26/2024 14:30 NHM/OPTOMETRY/LAMAR/ 07/26/2024 14:00 CWM/SO/PACT 1 TOOL AND DIE ENGINEER 09/11/2024 13:00 CWM/SO/PODIATRY/ROSS 10/24/2024 16:00 NHM DENTAL RDH 1 PM DICYCLOMINE HCL TAB 20MG /es/ CAMILLA OLEARY Signed: 06/18/2024 09:53 Receipt Acknowledged By: 06/18/2024 11:15 /es/ LUCIA SHERIDAN REGISTERED NURSE 06/18/2024 13:37 /es/ ROBERTA NOE LPN, CASSANDRA M [place]
--- OUTSIDE RECORDS SUMMARY | 2024-07-26 17:01 | XMS_ITS | Encounter Summary ---
Author Name Department of Vetera Affairs [place] Organization Department of Vetera Affairs [place] Address [address] [place] [address] Care Team Providers Care Inclined Railway Operator Name Role Phone WAYNE WHEATLEY Primary [...] Name Patient's Relationship to Policy [facility]) MEDICARE ADVANTAGE [facility] ([facility]) Aug 25, 2001 [facility] ([facility]) [id number] ADRIANA GELLER PATIENT MEDICARE ([facility]) MEDICARE (M) PART A Oct 23, 2016 PART A [id number] QUE GELLER PATIENT MEDICARE ([facility]) MEDICARE (M) PART B Oct 23, 2016 PART B [id number] QUE GELLER PATIENT MEDICARE ([facility]) MEDICARE (M) PART B Jul 25, 2011 PART B [id number] [phone] QUE GELLER PATIENT MEDICARE ([facility]) MEDICARE (M) PART B Jul 25, 2011 PART B [id number] 97A QUE GELLER PATIENT MEDICARE (WNR) MEDICARE (M) PART B Jul 25, 2011 PART B [id number] QUE GELLER PATIENT MEDICARE (WNR) MEDICARE (M) PART A Apr 24, 2004 PART A [id number] 97A QUE GELLER PATIENT MEDICARE (WNR) MEDICARE (M) PART A Apr 24, 2004 PART A [id number] QUE GELLER PATIENT MEDICARE (WNR) MEDICARE (M) PART A Apr 24, 2004 PART A [id number] QUE GELLER PATIENT Selected Encounter This section includes the information on record at [place] for the Encounter. Date/Time Encounter Type Encounter Description Reason Pro vider Source Apr 11, 2024 12:00 AM Outpatient Encounter COMMUNITY CARE [...] Appointment Type Appointme nt Facility Name Apr 24, 2024 01:00 PM [facility] Apr 25, 2024 04:00 PM AMBULATORY - NONE [place] [facility] Apr 26, 2024 08:50 AM AMBULATORY - MEDICINE [place] [facility] May 14, 2024 03:00 PM AMBULATORY - MEDICINE [place] [facility] May 14, 2024 03:30 PM AMBULATORY - MEDICINE [place] [facility] [facility] May 21, 2024 09:00 AM AMBULATORY - MEDICINE [place] [facility] [facility] Jun 26, 2024 02:30 PM AMBULATORY - MEDICINE [place] [facility] [place] [facility] Jun 26, 2024 03:00 PM AMBULATORY - MEDICINE [place] [facility] [facility] Jun 26, 2024 03:15 PM AMBULATORY - MEDICINE [place] [facility] [facility] Jul 03, 2024 04:00 PM [facility]ATORY - [facility] [place] [facility] Sep 04, 2024 04:00 PM [facility]UL[facility]ORY - [facility] [place] [facility] Sep 11, 2024 01:00 PM AMBULATORY [...] of theEncounter. The data comes from all [place] treatment facilities. Test Date/Time Test Type Test Details Facility Name Mar 22, 2024 12:13 PM Consult Order COMMUNITY CARE-MRI Cons [facility] BLACK Lab Results: +/- 30 days of the encounter This section includes the Chemistry and Hematology Lab Results on record with [place] for the patient. Radiology Reports and Pathology Reports are provided separately, in subsequent sections. Lab Results This section contains the Chemistry/Hematology Results that were resulted 30 days before or 30 daysafter the date of the Encounter. Date/Time Source Result Type Result - Unit Interpretation Reference Range Comment Mar 22, 2024 11:37 AM BLACK THYROID TOTAL T3 Specimen Type: SERUM No comment entered. Ordering Provider: WAYNE WHEATLEY Report Released Date/Time: Mar 22, 2024 10:50 AM Reporting Lab: [facility] [address] [facility] [address] Performing Lab: [facility] [address] [facility] [facility] [address] THYROID TOTAL T3 102.12 ng/dL 35-193 Mar 22, 2024 11:37 AM BLACK THYROID T4 FREE(FT4) (WROX) Specimen Ty pe: SERUM No comment entered. Ordering Provider: WAYNE WHEATLEY Report Released Date/Time: Mar 22, 2024 10:50 AM Reporting Lab: [facility] [address] [facility] [address] Performing Lab: [facility] [address] [facility] [facility] [address] THYROID T4 FREE(FT4) (WROX) 0.99 ng/dL 0.6-1.6 Mar 22, 2024 11:37 AM BLACK TSH Specimen Type: SERUM No comment entered. Ordering Provider: WAYNE WHEATLEY Report Released Date/Time: Mar 22, 2024 10:50 AM Reporting Lab: [address] [address] Performing Lab: [address] [address] TSH 6.24 u[IU]/mL H 0.35-5.00 Mar 22, 2024 11:37 AM BLACK CBC AND DIFF (AUTO) Specimen Type: BLOOD No comment entered. Ordering Provider: WAYNE WHEATLEY Report Released Date/Time: Mar 22, 2024 10:50 AM Reporting Lab: [address] [address] Performing Lab: [address] [address] WBC 6.41 10*3/uL 4.50-11.00 RBC 4.43 10*6/uL [...] and tobacco- related health factors from the [place] facility where the Encounter took place. Current Smoking Status This section includes the most current smoking, or tobacco-related health factor, from the [place] facility where the Encounter took place. Date/Time Current Smoking Status Comment Facil ity Mar 22, 2024 12:43 PM VA-TOBACCO NEVER USED [facility] Tobacco Use History This section includes a history of the smoking, or tobacco-related health factors, that were collected on or before the date of the Encounter. The data comes from the [place] facility where the Encounter took place. Date/Time Smoking Status/Tobacco Use Comment F acility Mar 26, 2021 02:25 PM VA-TOBACCO NEVER USED [facility] Advance Directives: All historical and current Section [...] Nov 04, 2016 ADVANCE DIRECTIVE RONY URRUTIA [facility] Encounter Notes: All associated encounter notes This section contains the clinical notes associated to the Encounter. Date/Time Encounter Note(s) Provider Source Apr 11, 2024 12:00 AM NONVA CONSULT: LOCAL TITLE: COMMUNITY CARE-CONSULT RESULT NOTE STANDARD TITLE: NONVA CONSULT DATE OF NOTE: APR 11, 2024 ENTRY DATE: JUN 07, 2024@09:35:44 AUTHOR: JANINA SIERRA EXP COSIGNER: URGENCY: STATUS: COMPLETED VistA Imaging - Scanned Document SCANNED DOCUMENT SIGNATURE NOT REQUIRED Electronically Filed: 06/07/2024 by: JANINA SARMIENTO [facility]
--- OUTSIDE RECORDS SUMMARY | 2024-07-26 17:01 | XMS_ITS | Encounter Summary ---
Author Name Department of [place] Organization [place] Address [address] [place] [address] Care Team Providers Care Humanities Department Chair Name Role Phone WAYNE WHEATLEY Primary Care [...] Patient's Relationship to Policy [facility]) MEDICARE ADVANTAGE [facility] ([facility]) Aug 25, [facility] ([facility]) [id number] DOMADRIANA SALINAS JOHN PATIENT MEDICARE ([facility]) MEDICARE (M) PART A Oct 23, 2016 PART A [id number] QUE GELLER PATIENT MEDICARE ([facility]) MEDICARE (M) PART B Oct 23, 2016 PART B [id number] QUE GELLER PATIENT MEDICARE ([facility]) MEDICARE (M) PART B Jul 25, 2011 PART B [id number] [phone] QUE GELLER PATIENT MEDICARE ([facility]) MEDICARE (M) PART B Jul 25, 2011 PART B [id number] QUE GELLER PATIENT MEDICARE (WNR) MEDICARE (M) PART B Jul 25, 2011 PART B [id number] QUE GELLER PATIENT MEDICARE (WNR) MEDICARE (M) PART A Apr 24, 2004 PART A [id number] [phone] QUE GELLER PATIENT MEDICARE (WNR) MEDICARE (M) PART A Apr 24, 2004 PART A [id number] [phone] QUE GELLER PATIENT MEDICARE (WNR) MEDICARE (M) PART A Apr 24, 2004 PART A [id number] QUE GELLER PATIENT Selected Encounter This section includes the information on record at [place] for the Encounter. Date/Time Encounter Type Encounter Description Reason Pro vider Source Jun 11, 2024 03:03 PM Outpatient Encounter ADMIN PAT ACTIVTIES (MASNONCT) IHE Encounter Template Text not used by [place] Plan of Treatment: Future Appointments (+ 6 months) and Future Tests (+/- 45 days) The Plan of Treatment section includes future care activities for the patient [facility] [place] [facility]. This section includes future appointments [...] - MEDICINE [place] [facility] Jun 26, 2024 03:00 PM AMBULATORY - MEDICINE [place] [facility] [place] [facility] Jun 26, 2024 03:15 PM AMBULATORY - MEDICINE [place] [facility] Jul 03, 2024 04:00 PM [facility]ATORY - [place]IC[place] [facility] Sep 04, 2024 04:00 PM AMBULATORY - [place]IC[place] [facility] Sep 11, 2024 01:00 PM [facility] Oct 24, 2024 04:00 PM AMBULATORY - NONE [place] [facility] [place] [facility] Oct 30, 2024 01:00 PM AMBULATORY - MEDICINE [facility] Social History: Smoking Status (Most [...] 22, 2024 12:43 PM VA-TOBACCO NEVER USED [facility] Tobacco Use History This section includes a history of the smoking, or tobacco-related health factors, that were collected on or before the date of the Encounter. The data comes from the [place] facility where the Encounter took place. Date/Time Smoking Status/Tobacco Use Comment F gerardo Mar 26, 2021 02:25 PM [place]-TOBACCO NEVER USED [facility] Advance Directives: All historical and [...] Nov 04, 2016 ADVANCE DIRECTIVE RONY URRUTIA [facility] Encounter Notes: All associated encounter notes This section contains the clinical notes associated to the Encounter. Date/Time Encounter Note(s) Provider Source Jun 12, 2024 09:30 AM ADDENDUM: LOCAL TITLE: Addendum STANDARD TITLE: ADDENDUM DATE OF NOTE: JUN 12, 2024@09:30:48 ENTRY DATE: JUN 12, 2024@09:30:49 AUTHOR: LUCIA SHERIDAN EXP COSIGNER: URGENCY: STATUS: COMPLETED Returned telephone call to to relay message from provider. reports pain is uncontrolled and pain clinic provider does not prescribe pain meds. Ferney reports he has an upcoming appt soon and will request again. RN educated on non-pharmacological pain control, Alpha -Stim. stated, he is open to anything at this point to help with his pain. Message forwarded to provider to review and order if appropriate. /shantel SHERIDAN REGISTERED NURSE Signed: 06/12/2024 12:14 Receipt Acknowledged By: 06/13/2024 13:31 /jose cruz/ WAYNE WHEATLEY NP NURSE PRACTITIONER === --- Original Document --- 06/11/24 CCC: SCHEDULING ADMINISTRATION: Patient Demographics Patient Name: KAM GELLER Patient Primary Phone: [phone] Patient Primary Address: [place] [address] Patient : 1950 Patient Age: 73 Caller/Recipient Relation to Patient: Self Administrative Administrative Note Reason: Returned Call Administrative Note Comments: called and is returning a call to the team, please call the . IMPORTANT: This note was created by [facility] staff. Please do not alert the staff member by adding them as a signer for future communications. Alerts are not monitored by this user. /jose cruz/ PIERCE FORD 1 CYDNEY AMSA Signed: 06/11/2024 15:04 Receipt Acknowledged By: 06/12/2024 09:30 /shantel SHERIDAN REGISTERED NURSE 06/12/2024 10:20 /es/ ROBERTA NOE LPN, [facility] [place] [facility] Jun 11, 2024 03:03 PM ADMINISTRATIVE NOTE: LOCAL TITLE: CCC: SCHEDULING ADMINISTRATION STANDARD TITLE: ADMINISTRATIVE NOTE DATE OF NOTE: JUN 11, 2024@15:03:58 ENTRY DATE: JUN 11, 2024@15:03:59 AUTHOR: PIERCE DODD COSIGNER: URGENCY: STATUS: COMPLETED CCC: SCHEDULING ADMINISTRATION Has ADDENDA Patient Demographics Patient Name: KAM GELLER Patient Primary Phone: [phone] Patient Primary Address: [place] [address] Patient : 1950 Patient Age: 73 Caller/Recipient Relation to Patient: Self Administrative Administrative Note Reason: Returned Call Administrative Note Comments: called and is returning a call to the team, please call the . IMPORTANT: This note was created by [facility] staff. Please do not alert the staff member by adding them as a signer for future communications. Alerts are not monitored by this user. /shantel FORD 1 [facility] AMSA Signed: 06/11/2024 15:04 Receipt Acknowledged By: 06/12/2024 09:30 /shantel SHERIDAN REGISTERED NURSE 06/12/2024 10:20 /jose cruz/ GALINDO MCCRACKEN LPN LPN 06/12/2024 ADDENDUM STATUS: COMPLETED Returned telephone call to to relay message from provider. reports pain is uncontrolled and pain clinic provider does not prescribe pain meds. Ferney reports he has an upcoming appt soon and will request again. RN educated on non-pharmacological pain control, Alpha -Stim. Ferney stated, he is open to anything at this point to help with his pain. Message forwarded to provider to review and order if appropriate. /shantel SHERIDAN REGISTERED NURSE Signed: 06/12/2024 12:14 Receipt Acknowledged By: 06/13/2024 13:31 /jose cruz/ WAYNE WHEATLEY NP NURSE PRACTITIONER 06/13/2024 ADDENDUM STATUS: COMPLETED Telephone call to to let him know he needs to follow-up with his community pain clinic provider for his pain care concerns. No answer, generic message left to return call to clinic. /shantel SHERIDAN REGISTERED NURSE Signed: 06/13/2024 14:31 PIERCE DODD [place] [facility]
--- OUTSIDE RECORDS SUMMARY | 2024-07-26 17:01 | XMS_ITS | Encounter Summary ---
Author Name [facility] [place] Address [address] [place] [address] Care Team Providers Care Image Scientist Name Role Phone WAYNE WHEATLEY Primary Care [...] [facility] MEDICARE ADVANTAGE [facility] ([facility]) Aug 25, 2001 [facility] ([facility]) [id number] TIERNEYADRIANA RUSSO PATIENT MEDICARE (WN) MEDICARE (M) PART A Oct 23, 2016 PART A [id number] QUE GELLER PATIENT MEDICARE ([facility]) MEDICARE (M) PART B Oct 23, 2016 PART B [id number] QUE GELLER PATIENT MEDICARE ([facility]) MEDICARE (M) PART B Jul 25, 2011 PART B [id number] QUE GELLER PATIENT MEDICARE ([facility]) MEDICARE (M) PART B Jul 25, 2011 PART B [id number] 97A QUE GELLER PATIENT MEDICARE (WNR) MEDICARE (M) PART B Jul 25, 2011 PART B [id number] QUE GELLER PATIENT MEDICARE (WNR) MEDICARE (M) PART A Apr 24, 2004 PART A [id number] [phone] QUE GELLER PATIENT MEDICARE (WNR) MEDICARE (M) PART A Apr 24, 2004 PART A [id number] QUE GELLER PATIENT MEDICARE (WNR) MEDICARE (M) PART A Apr 24, 2004 PART A [id number] QUE GELLER PATIENT Selected Encounter This section includes the information on record at [place] for the Encounter. Date/Time Encounter Type Encounter Description Reason Pro vider Source Jun 08, 2024 12:38 PM Outpatient Encounter ADMIN PAT ACTIVTIES (MASNONCT) IHE Encounter Template Text not used by [place] Plan of Treatment: Future Appointments (+ 6 months) and Future Tests (+/- 45 days) The Plan of Treatment section includes future care activities for the patient [facility] [place] [facility] This section includes future appointments and future orders which are active, pending or scheduled. Future Appointments This section includes appointments that were scheduled to occur 6 months from the date of the Encounter, up to a maximum of 20 appointments. The data comes from all [place] treatment facilities. Appointment Date/Time Appointment Type Appointme nt Facility Name Jun 26, 2024 02:30 PM AMBULATORY - MEDICINE [place] [facility] [place] [facility] Jun 26, 2024 03:00 PM AMBULATORY - MEDICINE [place] [facility] [place] [facility] Jun 26, 2024 03:15 PM AMBULATORY - MEDICINE [place] [facility] [place] [facility] Jul 03, 2024 04:00 PM AMBULATORY - [facility]ICINE [place] [facility] Sep 04, 2024 04:00 PM AMBULATORY - MEDICINE [facility] Sep 11, 2024 01:00 PM [facility] Oct 24, 2024 04:00 PM AMBULATORY - NONE [place] [facility] [place] [facility] Oct 30, 2024 01:00 PM AMBULATORY - MEDICINE [facility] Social History: Smoking Status (Most current) and Tobacco Use (All prior to encounter date) This section includes the most current, and the historical, smoking and tobacco- related health factors from the [place] facility where the Encounter took place. Current Smoking Status This section includes the most current smoking, or tobacco-related health factor, from the [place] facility where the Encounter took place. Date/Time Current Smoking Status Comment Facil de[facility]ray Mar 22, 2024 12:43 PM VA-TOBACCO NEVER USED [facility] Tobacco Use History This section includes a history of the smoking, or tobacco-related health factors, that were collected on or before the date of the Encounter. The data comes from the [place] facility where the Encounter took place. Date/Time Smoking Status/Tobacco Use Comment F gerardo Mar 26, 2021 02:25 PM VA-TOBACCO NEVER USED [facility] Advance Directives: All historical and current Section Date Range: From patient's date of to the date document was created. This section includes ALL of a patient's completed or amended [place] Advance and Rescinded Directives. The entries below indicate that a directive exists for the patient, but an actual copy is not included with this document. The data comes from all [place] facilities. Date Advance Directives Provider Source Nov 04, 2016 ADVANCE DIRECTIVE RONY URRUTIA [facility] Encounter Notes: All associated encounter notes This section contains the clinical notes associated to the Encounter. Date/Time Encounter Note(s) Provider Source Jun 08, 2024 03:43 PM ADDENDUM: LOCAL TITLE: Addendum STANDARD TITLE: ADDENDUM DATE OF NOTE: JUN 08, 2024@15:43:01 ENTRY DATE: JUN 08, 2024@15:43:01 AUTHOR: WAYNE WHEATLEY EXP COSIGNER: URGENCY: STATUS: COMPLETED Xstampza is a form of oxycodone. The has been following with [facility] for his chronic pain syndrome. I recommend he consult with the providers at that clinic regarding xstampza. In addition, please request records from the [facility] to update ours. /jose cruz/ WAYNE WHEATLEY NP NURSE PRACTITIONER Signed: 06/08/2024 15:44 Receipt Acknowledged By: 06/08/2024 16:23 /jose cruz/ LUCIA SHERIDAN REGISTERED NURSE 06/11/2024 14:38 /es/ ТАТЬЯНА PEPPER SHERIDAN RIGHT OF WAY MANAGER --- Original Document --- 06/08/24 CCC: SCHEDULING ADMINISTRATION: Patient Demographics Patient Name: KAM GELLER Patient Primary Phone: [phone] Patient Primary Address: [address] [place] [address] Patient : 1950 Patient Age: 73 Call Back Number: Caller/Recipient Relation to Patient: Self Administrative Administrative Note Reason: Other Administrative Note Comments: Patient is calling regarding a medication for his chronic pain. He was wondering if he could get something for pain xstampza (which his takes), and would also like to speak with the provider (grateful regarding the Gastroenterology appointment) Please give the patient a call back to further discuss. Thank you. IMPORTANT: This note was created by [facility] Clinical Contact Center staff. Please do not alert the staff member by adding them as a signer for future communications. Alerts are not monitored by this user. /es/ REAGAN FORD 1 [facility] A[facility] Signed: 06/08/2024 12:38 Receipt Acknowledged By: 06/08/2024 13:37 /jose cruz/ ULCIA SHERIDAN REGISTERED NURSE 06/08/2024 15:41 /es/ WAYNE WHEATLEY NP NURSE PRACTITIONER 06/08/2024 13:46 /es/ GALINDO MCCRACKEN LPN LPN 06/08/2024 ADDENDUM STATUS: COMPLETED Returned telephone call to , no answer. HIPPA compliant voicemail left for to return call to clinic to relay message from provider re: new medication request. /shantel SHERIDAN REGISTERED NURSE Signed: 06/08/2024 16:25 06/11/2024 ADDENDUM STATUS: COMPLETED THIS HELIX COIL WINDER SENT FAX REQUEST FOR RECORDS FROM [facility] [phone] /es/ ТАТЬЯНА PEPPER ADVANCE RIGHT OF WAY MANAGER Signed: 06/11/2024 14:37 WAYNE WHEATLEY [facility] [place] [facility] Jun 08, 2024 12:38 PM ADMINISTRATIVE NOTE: LOCAL TITLE: CCC: SCHEDULING ADMINISTRATION STANDARD TITLE: ADMINISTRATIVE NOTE DATE OF NOTE: JUN 08, 2024@12:38:05 ENTRY DATE: JUN 08, 2024@12:38:05 AUTHOR: REAGAN AMIN COSIGNER: URGENCY: STATUS: COMPLETED CCC: SCHEDULING ADMINISTRATION Has ADDENDA Patient Demographics Patient Name: KAM GELLER Patient Primary Phone: [phone] Patient Primary Address: [address] [place] [address] Patient : 1950 Patient Age: 73 Call Back Number: Caller/Recipient Relation to Patient: Self Administrative Administrative Note Reason: Other Administrative Note Comments: Patient is calling regarding a medication for his chronic pain. He was wondering if he could get something for pain xstampza (which his takes), and would also like to speak with the provider (grateful regarding the Gastroenterology appointment) Please give the patient a call back to further discuss. Thank you. IMPORTANT: This note was created by [facility] Clinical Contact Center staff. Please do not alert the staff member by adding them as a signer for future communications. Alerts are not monitored by this user. /es/ REAGAN AMIN VISN 1 [facility] Signed: 06/08/2024 12:38 Receipt Acknowledged By: 06/08/2024 13:37 /es/ LUCIA SHERIDAN REGISTERED NURSE 06/08/2024 15:41 /es/ WAYNE WHEATLEY NP NURSE PRACTITIONER 06/08/2024 13:46 /es/ GALINDO MCCRACKEN LPN LPN 06/08/2024 ADDENDUM STATUS: COMPLETED Xstampza is a form of oxycodone. The [place] has been following with [facility] for his chronic pain syndrome. I recommend he consult with the providers at that clinic regarding xstampza. In addition, please request records from the [facility] to update ours. /jose cruz/ WAYNE WHEATLEY NP NURSE PRACTITIONER Signed: 06/08/2024 15:44 Receipt Acknowledged By: 06/08/2024 16:23 /jose cruz/ LUCIA SHERIDAN REGISTERED NURSE 06/11/2024 14:38 /jose cruz/ ТАТЬЯНА PEPPER ADVANCE RIGHT OF WAY MANAGER 06/08/2024 ADDENDUM STATUS: COMPLETED Returned telephone call to , no answer. HIPPA compliant voicemail left for to return call to clinic to relay message from provider re: new medication request. /jose cruz/ LUCIA SHERIDAN REGISTERED NURSE Signed: 06/08/2024 16:25 06/11/2024 ADDENDUM STATUS: COMPLETED THIS HELIX COIL WINDER SENT FAX REQUEST FOR RECORDS FROM [facility] [phone] /jose cruz/ ТАТЬЯНА PEPPER ADVANCE RIGHT OF WAY MANAGER Signed: 06/11/2024 14:37 REAGAN AMIN [place] [facility]
--- OUTSIDE RECORDS SUMMARY | 2024-07-26 17:02 | XMS_ITS | Encounter Summary ---
Author Name [place] Address [address] [place] [id number] Care Team Providers Care Order Booker Name Role Phone WAYNE WHEATLEY Primary Care [...] Name Patient's Relationship to Policy [facility]) MEDICARE ADVANTAGE [facility] ([facility]) Aug 25, 2001 [facility] ([facility]) [id number] [phone] TIERNEYADRIANA RUSSO PATIENT MEDICARE ([facility]) MEDICARE (M) PART A Oct 23, 2016 PART A [id number] QUE GELLER PATIENT MEDICARE ([facility]) MEDICARE (M) PART B Oct 23, 2016 PART B [id number] QUE GELLER PATIENT MEDICARE ([facility]) MEDICARE (M) PART B Jul 25, 2011 PART B [id number] 97A QUE GELLER PATIENT MEDICARE ([facility]) MEDICARE (M) PART B Jul 25, 2011 PART B [id number] [phone] QUE GELLER PATIENT MEDICARE (WNR) MEDICARE (M) PART B Jul 25, 2011 PART B [id number] QUE GELLER PATIENT MEDICARE (WNR) MEDICARE (M) PART A Apr 24, 2004 PART A [id number] 97A QUE GELLER PATIENT MEDICARE (WNR) MEDICARE (M) PART A Apr 24, 2004 PART A [id number] 97A QUE GELLER PATIENT MEDICARE (WNR) MEDICARE (M) PART A Apr 24, 2004 PART A [id number] QUE GELLER PATIENT Selected Encounter This section includes the information on record at [place] for the Encounter. Date/Time Encounter Type Encounter Description Reason Pro vider Source Jun 28, 2024 12:11 PM Outpatient Encounter PRIMARY CARE/MEDICINE IHE Encounter [...] - MEDICINE [facility] Sep 04, 2024 04:00 PM AMBULATORY - MEDICINE [facility] [facility] Sep 11, 2024 01:00 PM AM[place]ULATORY - [place]ICINE [place] Oct 24, 2024 04:00 PM AMBULATORY - NONE [place] [facility] [place] [facility] Oct 30, 2024 01:00 PM AM[place]ULATORY - [place]IC[place] Dec 26, 2024 01:30 PM AMBULATORY - MEDICINE [place] [facility] [place] [facility] Dec 26, 2024 02:30 PM AMBULATORY - MEDICINE [place] [facility] [facility] Social History: Smoking Status (Most current) [...] 22, 2024 12:43 PM VA-TOBACCO NEVER USED [facility] Tobacco Use History This section includes a history of the smoking, or tobacco-related health factors, that were collected on or before the date of the Encounter. The data comes from the [place] facility where the Encounter took place. Date/Time Smoking Status/Tobacco Use Comment F acmartina Mar 26, 2021 02:25 PM VA-TOBACCO NEVER USED [facility] Advance Directives: All historical and current [...] Nov 04, 2016 ADVANCE DIRECTIVE RONY URRUTIA [facility] Encounter Notes: All associated encounter notes This section contains the clinical notes associated to the Encounter. Date/Time Encounter Note(s) Provider Source Jun 28, 2024 12:11 PM ADMINISTRATIVE NOT E: LOCAL TITLE: FAX/MAIL RECEIVED STANDARD TITLE: ADMINISTRATIVE NOTE DATE OF NOTE: JUN 28, 2024@12:11 ENTRY DATE: JUN 28, 2024@12:11:28 AUTHOR: VIOLET JO EXP COSIGNER: URGENCY: STATUS: COMPLETED FAX/MAIL RECEIVED Has ADDENDA Document Received On: Jun Document Type: Emergency Department Note Medical Records Date of Service: May Facility and or Provider: Contact Information: PCP of Record: WAYNE WHEATLEY Next visit with PCP: 07/26/2024 14:00 CWM/SO/PACT 1 BENCH WORKER 09/11/2024 13:00 CWM/SO/PODIATRY/ROSS 10/24/2024 16:00 NHM DENTAL RDH 1 PM 12/26/2024 13:30 NHM/OPT/VISUAL IMAGING 12/26/2024 14:30 NHM/OPTOMETRY/LAMAR/ Primary Care May keep copies of this document for up to 14 days and send the original for scanning. ED discharge summary received via mail from [facility]. Placed in provider's mailbox for review. /jose cruz/ VIOLET OLEARY Signed: 06/28/2024 12:13 Receipt Acknowledged By: 06/28/2024 14:34 /jose cruz/ LUCIA SHERIDAN REGISTERED NURSE 06/29/2024 09:09 /jose cruz/ GALINDO MCCRACKEN LPN LPN 06/28/2024 ADDENDUM STATUS: COMPLETED Received, will send to right fax folder for provider to review. /jose cruz/ LUCIA SHERIDAN REGISTERED NURSE Signed: 06/28/2024 14:35 VIOLET JO
--- OUTSIDE RECORDS SUMMARY | 2024-07-26 17:02 | XMS_ITS | Encounter Summary ---
Author Name Department [place] Organization [place] Address [address] [place] [id number] Care Team Providers Care Tank Pumper Panelboard Name Role Phone WAYNE WHEATLEY Primary Care [...] Name Patient's Relationship to Policy [facility]) MEDICARE ADVANTAGE [facility] ([facility]) Aug 25, 2001 [facility] ([facility]) [id number] TIERNEYADRIANA RUSSO PATIENT MEDICARE ([facility]) MEDICARE (M) PART A Oct 23, 2016 PART A [id number] QUE GELLER PATIENT MEDICARE ([facility]) MEDICARE (M) PART B Oct 23, 2016 PART B [id number] QUE GELLER PATIENT MEDICARE ([facility]) MEDICARE (M) PART B Jul 25, 2011 PART B [id number] [phone] QUE GELLER PATIENT MEDICARE ([facility]) MEDICARE (M) PART B Jul 25, 2011 PART B [id number] UQE GELLER PATIENT MEDICARE (WNR) MEDICARE (M) PART B Jul 25, 2011 PART B [id number] QUE GELLER PATIENT MEDICARE (WNR) MEDICARE (M) PART A Apr 24, 2004 PART A [id number] QUE GELLER PATIENT MEDICARE (WNR) MEDICARE (M) PART A Apr 24, 2004 PART A [id number] [phone] QUE GELLER PATIENT MEDICARE (WNR) MEDICARE (M) PART A Apr 24, 2004 PART A [id number] QUE GELLER PATIENT Selected Encounter This section includes the information on record at [place] for the Encounter. Date/Time Encounter Type Encounter Description Reason Pro vider Source Jun 18, 2024 11:11 AM Outpatient Encounter PRIMARY CARE/MEDICINE IHE Encounter Template Text not used by [place] Plan of Treatment: Future Appointments (+ 6 months) and Future Tests (+/- 45 days) The Plan of Treatment section includes future care activities for the [facility] [place] [facility] This section includes future appointments and [...] - MEDICINE [place] [facility] [place] [facility] Jun 26, 2024 03:00 PM AMBULATORY - MEDICINE [place] [facility] [facility] Jun 26, 2024 03:15 PM AMBULATORY - MEDICINE [place] [facility] [facility] [facility] Jul 03, 2024 04:00 PM AMBULATORY - [facility]ICINE [place] [facility] Sep 04, 2024 04:00 PM AMBULATORY - MEDICINE [place] [facility] Sep 11, 2024 01:00 PM AMBULATORY - MEDICINE [place] Oct 24, 2024 04:00 PM AMBULATORY - NONE [place] [facility] [facility] Oct 30, 2024 01:00 PM AMBULATORY [...] 22, 2024 12:43 PM VA-TOBACCO NEVER USED [facility] Tobacco Use History This section includes a history of the smoking, or tobacco-related health factors, that were collected on or before the date of the Encounter. The data comes from the [place] facility where the Encounter took place. 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 [+] DICYCLOMINE HCL 20MG TAB ACTIVE OUT RX 05/30/2024 06/29/2024 05/31/2024 WAYNE WHEATLEY Sig: TAKE ONE TABLET BY MOUTH TWICE DAILY NEEDED (FOR IRRITABLE BOWEL ... [+] /jose cruz/ LUCIA SHERIDAN REGISTERED NURSE Signed: 06/18/2024 11:14 Receipt Acknowledged By: 06/22/2024 15:48 /jose cruz/ WAYNE WHEATLEY NP NURSE PRACTITIONER LUCIA SHERIDAN
--- OUTSIDE RECORDS SUMMARY | 2024-07-26 17:02 | XMS_ITS | Encounter Summary ---
Author Name [facility] [place] Address [address] [place] [address] Care Team Providers [employer] Name Role Phone WAYNE WHEATLEY Primary Care [...] Patient's Relationship to Policy [facility]) MEDICARE ADVANTAGE [facility] ([facility]) Aug 25, 2001 [facility] ([facility]) [id number] [phone] TIERNEYADRIANA RUSSO JOHN PATIENT MEDICARE ([facility]) MEDICARE (M) PART A Oct 23, 2016 PART A [id number] [place] PATIENT MEDICARE ([facility]) MEDICARE () PART B Oct 23, 2016 PART B [id number] [place] PATIENT MEDICARE ([facility]) MEDICARE (M) PART B Jul 25, 2011 PART B [id number] [phone] [place] PATIENT MEDICARE ([facility]) MEDICARE (M) PART B Jul 25, 2011 PART B [id number] [place] PATIENT MEDICARE (WNR) MEDICARE (M) PART B Jul 25, 2011 PART B [id number] [phone] [place] PATIENT MEDICARE (WNR) MEDICARE (M) PART A Apr 24, 2004 PART A [id number] 97A [place] PATIENT MEDICARE (WNR) MEDICARE (M) PART A Apr 24, 2004 PART A [id number] 97A [place] PATIENT MEDICARE (WNR) MEDICARE (M) PART A Apr 24, 2004 PART A [id number] [phone] [place] PATIENT Selected Encounter This section includes the information on record at [place] for the Encounter. Date/Time Encounter Type Encounter Description Reason Provider Source Jun 26, 2024 02:30 PM COMPRE OPH EXAM EST PT 1/> OPTOMETRY ICD-10-CM 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, bilateral, intermed dry stage LAMAR,MIMI J E Encounter Template Text not used by [place] Assessments - Encounter Diagnoses This section includes the primary and secondary diagnoses documented for the Encounter. Date/Time Primary/Secondary Diagnosis Diagnosis Name Provider Source Jun 26, 2024 03:53 PM PRIMARY Nexdtve age-related mclr degn, bilateral, intermed dry stage LAMAR,MIMI J [facility] [place] [facility] Jun 26, 2024 03:53 PM SECONDARY Combined forms of age-related cataract, bilateral LAMAR,MIMI J [place] [facility] [place] [facility] Jun 26, 2024 03:53 PM SECONDARY Open angle with borderline findings, low risk, bilateral LAMAR,MIMI J [place] [facility] [place] [facility] Jun 26, 2024 03:53 PM SECONDARY Presbyopia L[facility]AR[facility]I J [facility] Plan of Treatment: Future Appointments (+ 6 [...] 04:00 PM [facility]IC[facility] Sep 04, 2024 04:00 PM [facility] - [facility]IC[facility] Sep 11, 2024 01:00 PM [facility]ATORY - MEDICINE [facility] [place] Oct 24, 2024 04:00 PM AMBULATORY - NONE [facility] Oct 30, 2024 01:00 PM AMBULATORY [...] 22, 2024 12:43 PM VA-TOBACCO NEVER USED [facility] Tobacco Use History This section includes a history of the smoking, or tobacco-related health factors, that were collected on or before the date of the Encounter. The data comes from the [place] facility where the Encounter took place. Date/Time Smoking Status/Tobacco Use Comment F gerardo Mar 26, 2021 02:25 PM VA-TOBACCO NEVER USED [facility] Advance Directives: All historical [...] Nov 04, 2016 ADVANCE DIRECTIVE RONY URRUTIA [facility] Encounter Notes: All associated encounter notes [...] Reason for Visit/CC: Patient here for CEE. Protem reports he is having a lot of [...] Description Z77.29 Exposure to potentially hazardous substance ([facility] [id number]) E66.9 Obesity ([facility] 327598587) D64.9 Anemia ([facility] 606499563) L84. Callus ([facility] 944212710) S27.0XXD Traumatic pneumothorax ([facility] 13946701) R60.9 Edema ([facility] 924565503) K31.84 Gastroparesis ([facility] 881893564) Z98.890 H/O: surgery ([facility] 150645252) G89.4 Chronic pain ([facility] 25304873) R69. Lumbar DXA scan result normal ([facility] 273415285) R69. ECG: normal sinus rhythm ([facility] 180753729) 719.45 Hip Pain (ICD-9-CM 719.45) V76.51 Screening for Malignant Neoplasms of colon (ICD-9-CM V76.51) M54.50 Back pain ([facility] 392090442) E03.9 Hypothyroidism ([facility] 40964243) E78.5 Hyperlipidemia ([facility] 04080000) D56.1 beta thalassemia ([facility] 25632641) V43.65 Knee Joint replacement Status (Prosthetic or Artificial Device) (ICD-9-CM V43.65) F33.9 Depression ([facility] 24113190) R12. Heartburn ([facility] 31251018) SYSTEMIC MEDICATIONS/OCULAR MEDICATIONS: Active Outpatient Medications (including [...] (never) Current Rx with last BCVA: OD: +2.50-2.56q409 20/20-1 OS: +2.75-2.80k383 20/20-1 Add: +2.50 20/20 DVA ( )sc ( x )cc - [x]phoropter []specs []CL OD: 20/60-1 OS: 20/25+2 Entrance Testing: Pupil: PERRL (-)APD EOM: SAFE OU, (-)Pain/Diplopia CVF: FT OU Subjective Refraction: OD: +1.50-2.72o098 20/50+2 OS: +3.25-2.80f964 20/20 Add: +2.75 SLE: Lids/Lashes: clear OU [...] vision changes SERA. -Continue AREDS2 PO BID - repeated back the plan and education. [...] if vision declines or interferes with ADLs -Protem repeated back the plan and education. -Monitor [...] this VA (local) and dispensed from another [place] or [facility] facility (remote) as well as inpatient orders [...] [place] [facility] [place] [facility] ERYTHROM[facility]IN Med. Reconciliation (Tool #1) INCLUDED IN THIS LIST: Alphabetical list of active outpatient prescriptions dispensed from this VA (local) and dispensed from another [place] or [facility] facility (remote) as well as inpatient orders (local pending and active), local clinic medications, locally documented non-VA medications, and local prescriptions that have or been discontinued in the past 90 days. Non-VA Meds Last Documented On: Mar 11, 2022 NOTE The display of VA prescriptions dispensed from another [place] or [facility] facility (remote) is limited to active outpatient prescription entries matched to National Drug File at the originating site and may not include some items such as investigational drugs, compounds, etc. NOT INCLUDED IN THIS LIST: Medications self-entered by the patient into personal health records (i.e. [employer]) are NOT included in this list. Non-VA medications documented outside this [place], remote inpatient orders (regardless of status) and remote clinic medications are NOT included in this list. The patient and provider must always discuss medications the patient is taking, regardless of where the medication was dispensed or obtained. OUTPT AMOXICILLIN 500MG CAP (Status = ) TAKE FOUR CAPSULES BY MOUTH ONE TIME ONE HOUR PRIOR TO DENTAL APPOINTMENTS Rx# [id number] Last Released: 07/14/23 Qty/Days Supply: 10/23 Rx Expiration Date: 05/06/24 Refills Remainin Indication: FOR DENTAL PREMEDICATION OUTPT CHOLECALCIF 25MCG (D3-1,000UNIT) TAB (Status = Active) TAKE ONE TABLET BY MOUTH ONCE DAILY FOR VITAMIN SUPPLEMENTATION Rx# [id number] Last Released: 03/01/24 Qty/Days Supply: Rx Expiration Date: 11/16/24 Refills Remainin Indication: FOR VITAMIN D DEFICIENCY OUTPT CHOLESTYRAMINE 4GM/9GM ORAL PWD PKT (Status = Active) TAKE 1 PACKET BY MOUTH ONCE DAILY Rx# [id number] Last Released: 02/03/24 Qty/Days Supply: 60/60 Rx Expiration Date: 11/11/24 Refills Remainin OUTPT CYANOCOBALAMIN 1000MCG TAB (Status = Active) TAKE ONE TABLET BY MOUTH ONCE DAILY FOR VITAMIN SUPPLEMENTATION Rx# [id number] Last Released: 03/20/24 Qty/Days Supply: Rx Expiration Date: 10/20/24 Refills Remainin Indication: FOR PREVENTION OF VITAMIN B12 DEFICIENCY OUTPT DICYCLOMINE HCL 20MG TAB (Status = Discontinued) TAKE ONE TABLET BY MOUTH TWICE DAILY NEEDED (FOR IRRITABLE BOWEL SYNDROME) Rx# [id number] Last Released: 05/31/24 Qty/Days Supply: 40 Rx Expiration Date: 06/29/24 Refills Remainin Indication: FOR GASTROPARESIS OUTPT DICYCLOMINE HCL 20MG TAB (Status = Active) TAKE ONE TABLET BY MOUTH TWICE DAILY NEEDED (FOR IRRITABLE BOWEL SYNDROME) Rx# [id number] Last Released: 06/22/24 Qty/Days Supply: 40 Rx Expiration Date: 07/22/24 Refills Remainin Indication: FOR GASTROPARESIS OUTPT DOCUSATE NA 50MG/SENNOSIDES 8.6MG TAB (Status = Active) TAKE 1 TABLET BY MOUTH TWICE DAILY FOR CONSTIPATION Rx# [id number] Last Released: 05/29/24 Qty/Days Supply: 200/90 Rx Expiration Date: 05/29/25 Refills Remainin Indication: FOR CONSTIPATION OUTPT FERROUS SULFATE 325MG TAB (Status = Discontinued) TAKE ONE TABLET BY MOUTH ONCE DAILY TO SUPPLEMENT IRON Rx# [id number] Last Released: 12/15/23 Qty/Days Supply: 100 Rx Expiration Date: 07/22/24 Refills Remainin OUTPT FERROUS SULFATE 325MG TAB (Status = Discontinued) TAKE ONE TABLET BY MOUTH ONCE DAILY TO SUPPLEMENT IRON Rx# [id number] Last Released: 04/17/24 Qty/Days Supply: 10090 Rx Expiration Date: 04/15/25 Refills Remainin OUTPT FERROUS SULFATE 325MG TAB (Status = Active) TAKE ONE TABLET BY MOUTH ONCE DAILY TO SUPPLEMENT IRON Rx# [id number] Last Released: Qty/Days Supply: 10090 Rx Expiration Date: 05/29/25 Refills Remainin OUTPT LEVOTHYROXINE NA (SYNTHROID) 125MCG TAB (Status = Discontinued) TAKE ONE TABLET BY MOUTH EVERY MORNING 30 MINUTES BEFORE BREAKFAST FOR THYROID TAKE ON AN EMPTY STOMACH WITH A FULL GLASS OF WATER Rx# [id number] Last Released: 02/09/24 Qty/Days Supply: 90/ Rx Expiration Date: 08/22/24 Refills Remainin Indication: FOR THYROID OUTPT LEVOTHYROXINE NA (SYNTHROID) 125MCG TAB (Status = Active) TAKE ONE TABLET BY MOUTH EVERY MORNING 30 MINUTES BEFORE BREAKFAST FOR THYROID TAKE ON AN EMPTY STOMACH WITH A FULL GLASS OF WATER Rx# [id number] Last Released: 05/30/24 Qty/Days Supply: Rx Expiration Date: 05/29/25 Refills Remainin Indication: FOR THYROID OUTPT LIDOCAINE 5% OINT (Status = Discontinued) APPLY SMALL AMOUNT TOPICALLY ONCE DAILY NEEDED FOR ITCHING Rx# [id number] Last Released: 04/13/24 Qty/Days Supply: 70 Rx Expiration Date: 01/31/25 Refills Remainin Indication: FOR ITCHING OUTPT LIDOCAINE 5% OINT (Status = Active/Suspended) APPLY SMALL AMOUNT TOPICALLY ONCE DAILY NEEDED FOR ITCHING Rx# [id number] Last Released: QtDays Supply: Rx Expiration Date: 05/29/25 Refills Remainin Indication: FOR ITCHING Non-VA LORAZEPAM 0.5MG TAB TAKE ONE TABLET BY MOUTH ONCE DAILY NEEDED Medication prescribed by Non-VA provider. OUTPT MAGNESIUM OXIDE 420MG TAB (Status = Active) TAKE ONE TABLET BY MOUTH ONCE DAILY Rx# [id number] Last Released: 03/01/24 Qty/Days Supply: Rx Expiration Date: 11/09/24 Refills Remainin Indication: Migraine Non-VA MARIJUANA MISCELLANEOUS USE DIRECTED OUTPT MULTIVIT/OPHTH AREDS2/LUTE/ZEAX CAP/TAB (Status = Discontinued) TAKE 1 CAPSULE BY MOUTH TWICE DAILY IN THE MORNING AND EVENING, WITH FOOD Rx# [id number] Last Released: 03/01/24 Qty/Days Supply: 120/60 Rx Expiration Date: 08/22/24 Refills Remainin OUTPT MULTIVIT/OPHTH AREDS2/LUTE/ZEAX CAP/TAB (Status = Active) TAKE 1 CAPSULE BY MOUTH TWICE DAILY IN THE MORNING AND EVENING, WITH FOOD Rx# [id number] Last Released: 05/11/24 Qty/Days Supply: 120/60 Rx Expiration Date: 05/09/25 Refills Remainin OUTPT PANTOPRAZOLE NA 40MG EC TAB (Status = Discontinued) TAKE ONE TABLET BY MOUTH TWICE DAILY Rx# [id number] Last Released: 03/12/24 Qty/Days Supply: 60/30 Rx Expiration Date: 12/30/24 Refills Remainin OUTPT PANTOPRAZOLE NA 40MG EC TAB (Status = Discontinued) TAKE ONE TABLET BY MOUTH ONCE DAILY Rx# [id number] Last Released: 05/01/24 Qty/Days Supply: Rx Expiration Date: 04/12/25 Refills Remainin OUTPT PANTOPRAZOLE NA 40MG EC TAB (Status = Discontinued) TAKE ONE TABLET BY MOUTH ONCE DAILY Rx# [id number] Last Released: 05/30/24 Qty/Days Supply: Rx Expiration Date: 05/29/25 Refills Remainin OUTPT PANTOPRAZOLE NA 40MG EC TAB (Status = Active) TAKE ONE TABLET BY MOUTH EVERY MORNING 30 MINUTES BEFORE BREAKFAST FOR EXCESSIVE PRODUCTION OF STOMACH ACID Rx# [id number] Last Released: Qt Supply: Rx Expiration Date: 05/31/25 Refills Remainin Indication: FOR EXCESSIVE PRODUCTION OF STOMACH ACID OUTPT PAROXETINE HCL 40MG TAB (Status = Active) TAKE ONE TABLET BY MOUTH DAILY Rx# [id number] Last Released: 05/01/24 Qty/Days Supply: Rx Expiration Date: 01/31/25 Refills Remainin Non-VA PROBIOTIC (CULTURELLE DIGESTIVE DAILY) CAP/TAB TAKE BY MOUTH ONCE DAILY Medication prescribed by Non-VA provider. OUTPT PROCHLORPERAZINE MALEATE 10MG TAB (Status = Discontinued) TAKE ONE TABLET BY MOUTH TWICE DAILY NEEDED FOR NAUSEA AND VOMITING Rx# [id number] Last Released: 05/31/24 Qty/Days Supply: Rx Expiration Date: 06/29/24 Refills Remainin Indication: FOR NAUSEA AND VOMITING OUTPT PROCHLORPERAZINE MALEATE 10MG TAB (Status = Active) TAKE ONE TABLET BY MOUTH TWICE DAILY NEEDED FOR NAUSEA AND VOMITING Rx# [id number] Last Released: 06/22/24 Qty/Days Supply: Rx Expiration Date: 07/22/24 Refills Remainin Indication: FOR NAUSEA AND VOMITING OUTPT SIMVASTATIN 40MG TAB (Status = Discontinued) TAKE ONE-HALF TABLET BY MOUTH AT BEDTIME FOR CHOLESTEROL Rx# [id number] Last Released: 03/01/24 Qty/Days Supply: Rx Expiration Date: 08/22/24 Refills Remainin Indication: FOR HIGH CHOLESTEROL OUTPT SIMVASTATIN 40MG TAB (Status = Active) TAKE ONE-HALF TABLET BY MOUTH AT BEDTIME FOR CHOLESTEROL Rx# [id number] Last Released: 05/30/24 Qty/Days Supply: 45/90 Rx Expiration Date: 05/29/25 Refills Remainin Indication: FOR HIGH CHOLESTEROL OUTPT SODIUM FLUORIDE 1.1% TOOTHPASTE (Status = Active) BRUSH SMALL AMOUNT TO TEETH TWICE DAILY FOR TOOTH DECAY PREVENTION Rx# [id number] Last Released: 07/12/23 Qty/Days Supply: 51/60 Rx Expiration Date: 07/08/24 Refills Remainin Indication: FOR TOOTH DECAY PREVENTION OUTPT SUCRALFATE 1GM TAB (Status = Discontinued) TAKE ONE TABLET BY MOUTH TWICE DAILY ON AN EMPTY STOMACH. TAKE UPON AWAKENING AND BEFORE BED Rx# [id number] Last Released: 05/01/24 Qty/Days Supply: 60/30 Rx Expiration Date: 01/20/25 Refills Remainin OUTPT SUCRALFATE 1GM TAB (Status = Active) TAKE ONE TABLET BY MOUTH TWICE DAILY ON AN EMPTY STOMACH. TAKE UPON AWAKENING AND BEFORE BED Rx# [id number] Last Released: 05/30/24 Qty/Days Supply: 6030 Rx Expiration Date: 05/29/25 Refills Remainin SUPPLIES PHARMACY TERMS AND POSSIBLE PATIENT ACTIONS INPT = [place] inpatient order IV = [place] intravenous medication OUTPT = [place] outpatient prescription PHARMACY POSSIBLE PATIENT TERMS EXPLANATION ACTIONS -------- ---- ACTIVE A prescription that can be If you have refills, filled at the local VA pharmacy. you may request a refill of this prescription from your VA pharmacy. CLINIC A medication you received during If you have questions a visit to a VA clinic or about this medication emergency department. contact your VA healthcare team. DISCONTINUED A prescription your provider has Contact your VA stopped. It is no longer healthcare team if you available to be sent to you or need more of this picked up at the [place] pharmacy medication. window. A prescription which is too old Contact your VA to fill. This does not refer to [...] the VA. Or, it may be an lloh-hnv-etbvnzv (OTC), herbal, dietary supplements or sample medication. [...] Medication Reconciliation List Offered and Declined by Protem () Medication Reconciliation List Printed for at Exam () Optometry HT Please Print and Mail Copy of Medication Reconciliation List () AMSA Please Print and Mail Copy of Medication Reconciliation List /jose cruz/ MIMI LAMAR OD IS ANALYST Signed: 06/26/2024 16:02 MIMI LAMAR [facility]
--- OUTSIDE RECORDS SUMMARY | 2024-07-26 17:02 | XMS_ITS | Encounter Summary ---
Author Name [place] Address [address] [place] [address] Care Team Providers Care Lip Cutter And Scorer Name Role Phone WAYNE WHEATLEY Primary Care [...] Name Patient's Relationship to Policy [facility]) MEDICARE ADVANTAGE [facility] ([facility]) Aug 25, 2001 [facility] ([facility]) [id number] [phone] TIERNEYADRIANA RUSSO JOHN PATIENT MEDICARE ([facility]) MEDICARE (M) PART A Oct 23, 2016 PART A [id number] [place] GE[place] PATIENT MEDICARE ([facility]) MEDICARE () PART B Oct 23, 2016 PART B [id number] [place] PATIENT MEDICARE ([facility]) MEDICARE (M) PART B Jul 25, 2011 PART B [id number] [phone] [place] PATIENT MEDICARE ([facility]) MEDICARE (M) PART B Jul 25, 2011 PART B [id number] [phone] [place] PATIENT MEDICARE (WNR) MEDICARE (M) PART B Jul 25, 2011 PART B [id number] [place] PATIENT MEDICARE (WNR) MEDICARE (M) PART A Apr 24, 2004 PART A [id number] [place] PATIENT MEDICARE (WNR) MEDICARE (M) PART A Apr 24, 2004 PART A [id number] [place] PATIENT MEDICARE (WNR) MEDICARE (M) PART A Apr 24, 2004 PART A [id number] [phone] [id number] [place] PATIENT Selected Encounter This section includes the information on record at [place] for the Encounter. Date/Time Encounter Type Encounter Description Reason Provider Source Jun 26, 2024 03:15 PM FUNDUS PHOTOGRAPHY W/I&R OPTOMETRY ICD-10-CM 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, bilateral, intermed dry stage LAMAR,MIMI J E Encounter Template Text not used by [place] Assessments - Encounter Diagnoses This section includes the primary and secondary diagnoses documented for the Encounter. Date/Time Primary/Secondary Diagnosis Diagnosis Name Provider Source Jun 26, 2024 04:01 PM PRIMARY Nexdtve age-related mclr degn, bilateral, intermed dry stage LAMAR,MIMI J [facility] [place] [facility] Jun 26, 2024 04:01 PM SECONDARY Combined forms of age-related cataract, bilateral LAMAR,MIMI J [place] [facility] [place] [facility] Jun 26, 2024 04:01 PM SECONDARY Open angle with borderline findings, low risk, bilateral LAMAR,MIMI J [facility] [place] [facility] Plan of Treatment: Future Appointments (+ [...] PM AM[facility]UL[facility]ORY - [facility]ICINE [facility] Sep 04, 2024 04:00 PM [facility] - [facility]ICINE [facility] Sep 11, 2024 01:00 PM [facility]ULATORY - [facility]ICINE [place] Oct 24, 2024 04:00 PM [facility] Oct 30, 2024 01:00 PM AMBULATORY - [...] 22, 2024 12:43 PM VA-TOBACCO NEVER USED [facility] Tobacco Use History This section includes a history of the smoking, or tobacco-related health factors, that were collected on or before the date of the Encounter. The data comes from the [place] facility where the Encounter took place. Date/Time Smoking Status/Tobacco Use Comment F acility Mar 26, 2021 02:25 PM VA-TOBACCO NEVER USED [facility] Advance Directives: All historical and [...] Nov 04, 2016 ADVANCE DIRECTIVE [facility] Encounter Notes: All associated encounter notes This section contains the clinical notes associated to the Encounter. Date/Time Encounter Note(s) Provider Source Jun 26, 2024 03:30 PM OPTOMETRY CONSULT: LOCAL TITLE: CONSULT REPORT/OPTOMETRY FUNDUS PHOTO STANDARD TITLE: OPTOMETRY CONSULT DATE OF NOTE: JUN 26, 2024@15:30 ENTRY DATE: JUN 26, 2024@15:30:13 AUTHOR: MIMI LAMAR EXP COSIGNER: URGENCY: STATUS: COMPLETED S: Review of fundus photo of patient with intermediate dry ARMD OU and low risk glaucoma suspect with moderate combined cataract each eye O: Fundus photo taken by spa technician A: Fundus photo right eye somewhat hazy due to combined cataracts and image artifact. Optic disc shows moderate cupping and healthy rim tissue, vasculature WNL, retina shows several coalesced drusen with area of pigment clumping. Fundus photo right eye hazy due to combined cataracts and image artifact with reduced image quality compared to right eye. Optic disc shows moderate cupping and healthy rim tissue, vasculature WNL, retina shows several coalesced drusen to extent viewed. Anterior segment photo obtained each eye without abnormality. P: Keep follow-up as scheduled, ed re today's findings. repeated back the plan and education. /jose cruz/ MIMI LAMAR OD LICENSED PSYCHOLOGIST MANAGER Signed: 06/26/2024 16:02 M[facility]AR [facility]
--- OUTSIDE RECORDS SUMMARY | 2024-07-26 17:02 | XMS_ITS | Encounter Summary ---
Author Name [facility] [place] Address [address] [place] [address] Care Team Providers Care Insurance Salesman Name Role Phone WAYNE MCCLENDON Primary Care [...] Name Patient's Relationship to Policy [facility]) MEDICARE ADVANTAGE [facility] ([facility]) Aug 25, 2001 [facility] ([facility]) [id number] ADRIANA GELLER PATIENT MEDICARE ([facility]) MEDICARE () PART A Oct 23, 2016 PART A [id number] QUE GELLER PATIENT MEDICARE ([facility]) MEDICARE () PART B Oct 23, 2016 PART B [id number] QUE GELLER PATIENT MEDICARE ([facility]) MEDICARE () PART B Jul 25, 2011 PART B [id number] [phone] QUE GELLER PATIENT MEDICARE ([facility]) MEDICARE (M) PART B Jul 25, 2011 PART B [id number] [phone] QUE GELLER PATIENT MEDICARE (WNR) MEDICARE (M) PART B Jul 25, 2011 PART B [id number] QUE GELLER PATIENT MEDICARE (WNR) MEDICARE (M) PART A Apr 24, 2004 PART A [id number] [phone] QUE GELLER PATIENT MEDICARE (WNR) MEDICARE (M) PART A Apr 24, 2004 PART A [id number] QUE GELLER PATIENT MEDICARE (WNR) MEDICARE (M) PART A Apr 24, 2004 PART A [id number] QUE GELLER PATIENT Selected Encounter This section includes the information on record at [place] for the Encounter. Date/Time Encounter Type Encounter Description Reason Provider Source Jul 09, 2024 04:05 PM Outpatient Encounter TELEPHONE TRIAGE IVET RODRIGUEZ Encounter Template Text not used by [place] Plan of Treatment: Future Appointments (+ 6 months) and Future Tests (+/- 45 days) The Plan of Treatment section includes future care activities for the patient from all [place] treatmentfacilities. This section includes future appointments and future orders which are active, pending or scheduled. Future Appointments This section includes appointments that were scheduled to occur 6 months from the date of the Encounter, up to a maximum of 20 appointments. The data comes from all [place] treatment facilities. Appointment Date/Time Appointment Type Appointme nt Facility Name Sep 04, 2024 04:00 PM [facility] - [facility] [place] [facility] Sep 11, 2024 01:00 PM [facility]IC[facility] Oct 24, 2024 04:00 PM AMBULATORY - NONE [place] [facility] [place] [facility] Oct 30, 2024 01:00 PM [facility]ORY - [place]ICINE [place] Dec 26, 2024 01:30 PM AMBULATORY - MEDICINE [place] [facility] [place] [facility] Dec 26, 2024 02:30 PM AMBULATORY - MEDICINE [place] [facility] [place] [facility] Social History: Smoking Status (Most current) and Tobacco Use (All prior to encounter date) This section includes the most current, and the historical, smoking and tobacco- related health factors from the [facility] facility where the Encounter took place. Current Smoking Status This section includes the most current smoking, or tobacco-related health factor, from the [place] facility where the Encounter took place. Date/Time Current Smoking Status Comment Catie thompson Mar 22, 2024 12:43 PM VA-TOBACCO NEVER USED [facility] Tobacco Use History This section includes a history of the smoking, or tobacco-related health factors, that were collected on or before the date of the Encounter. The data comes from the [place] facility where the Encounter took place. Date/Time Smoking Status/Tobacco Use Comment Gaby acmartina Mar 26, 2021 02:25 PM VA-TOBACCO NEVER USED [facility] Advance Directives: All historical and current [...] Provider Source Nov 04, 2016 ADVANCE DIRECTIVE SEBASRONY COLLINS [facility] Encounter Notes: All associated encounter notes This section contains the clinical notes associated to the Encounter. Date/Time Encounter Note(s) Provider Source Jul 16, 2024 02:51 PM ADDENDUM: LOCAL TITLE: Addendum STANDARD TITLE: ADDENDUM DATE OF NOTE: JUL 16, 2024@14:51:34 ENTRY DATE: JUL 16, 2024@14:51:34 AUTHOR: LUCIA SHERIDAN EXP COSIGNER: URGENCY: STATUS: COMPLETED MSA: Please send secure message, thank you. Mr. Geller, Xstampza is a form of oxycodone. You have been following with [facility] [facility] for your chronic pain syndrome. YENY Mcclendon, recommends you consult with the providers at that clinic regarding xstampza. Thank you for your service. /jose cruz/ LUCIA SHERIDAN REGISTERED NURSE Signed: 07/16/2024 14:58 Receipt Acknowledged By: 07/16/2024 15:18 /jose cruz/ ТАТЬЯНА PEPPER ADVANCE HALF SECTION IRONER === --- Original Document --- 07/09/24 CCC: CLINICAL TRIAGE: Patient Demographics Patient Name: KAM GELLER Patient Primary Address: [address] [place] [address] Patient Primary Phone: [phone] Patient : 1950 Patient Age: 73 Call Back Number: [phone] Caller/Recipient Relation to Patient: Self Caller Name: KAM GELLER Emergency Contact: MEI GELLER Triage Summary Conducted triage/discussed symptoms Utilized the Triage Tool: Yes Chief Complaint: Chronic Back Pain System WHEN: Within 24 Hours Nurse's Recommendation / WHEN: Within 24 Hours System WHERE: Clinic Nurse's Recommendation / WHERE: Clinic/[facility] Patient Disposition Patient/Caregiver agrees to plan of care: No Nursing Plan and Disposition Other course(s) of action Generated msg to PACT/Provider Provided guidance for worsening symptoms: *Caller/Patient* advised to call facilities [place] Clinical Contact Center or seek immediate medical attention for new or worsening symptoms Nurse Summary Nurse Summary: called stating, ''he would like to request pain medication for neck and chronic lower back pain''. States he needs to use a walker to get around. He has not been taking anything for pain. He is requesting xtampsza. Someone gave it to him and he tried it and it helped. His pain level is 10/10 all day. WOULD LIKE A CALL BACK TO discuss pain medication. *See [facility] details below for additional +/- signs & symptoms. RN RECOMMENDATION: F2F or telephone visit with PCP within 24 hours. The [facility] would like a call back from PACT to discuss pain management. WILL FORWARD TO PACT FOR FOLLOW UP. Discussed contacting the [facility] triage for any new or worsening sx Clinical Contact Center Codes Clinic/Location: V1 CWM PHONE [facility] RN Decision Support System Output: Triage Complete Triage Date: 07/09/2024, 04:01 PM Triage Note: Decision Support Tool Used: [facility] Phone Triage 09 Jul 2024 20:55:51 +0000 [facility] Demographics 73 y/o Male Results CC: Chronic Back Pain Software suggested: Within 24 Hours Software suggested follow-up location: Clinic Values and Measures Duration of CC: 1 Years Positive Responses HPI: leg weakness, new or worsening IMPORTANT: This note was created by [facility] Clinical Contact Center staff. Please do not alert the staff member by adding them as a signer for future communications. Alerts are not monitored by this user. /es/ IVET RODRIGUEZ BSN RN VISN1 CCC RN Signed: 07/09/2024 16:06 Receipt Acknowledged By: 07/10/2024 14:40 /es/ Melissa Irby RN Registered Nurse for LUCIACRISTA SHERIDAN 07/10/2024 16:14 /jose cruz/ GALINDO MCCRACKEN LPN LPN 07/10/2024 ADDENDUM STATUS: COMPLETED Forward to PCP for review of 's request for pain medication. /jose cruz/ Melissa Irby RN Registered Nurse Signed: 07/10/2024 14:39 Receipt Acknowledged By: 07/16/2024 09:22 /jose cruz/ WAYNE MCCLENDON NP NURSE PRACTITIONER 07/16/2024 ADDENDUM STATUS: COMPLETED Please refer to note 06/08/2024 regarding pain medication. /shantel MCCLENDON NP NURSE PRACTITIONER Signed: 07/16/2024 09:26 Receipt Acknowledged By: 07/16/2024 14:41 /jose cruz/ LUCIA SHERIDAN REGISTERED NURSE 07/16/2024 ADDENDUM STATUS: COMPLETED THIS WRITE SENT REPLY VIA MY [facility] VET PER RN SEE CPRS MESSAGE /jose cruz/ ТАТЬЯНА PEPPER ADVANCE HALF SECTION IRONER Signed: 07/16/2024 15:18 LUCIA SHERIDAN [place] [facility] [place] [facility] Jul 16, 2024 09:25 AM ADDENDUM: LOCAL TITLE: Addendum STANDARD TITLE: ADDENDUM DATE OF NOTE: JUL 16, 2024@09:25:50 ENTRY DATE: JUL 16, 2024@09:25:52 AUTHOR: WAYNE MCCLENDON EXP COSIGNER: URGENCY: STATUS: COMPLETED Please refer to note 06/08/2024 regarding pain medication. /shantel MCCLENDON NP NURSE PRACTITIONER Signed: 07/16/2024 09:26 Receipt Acknowledged By: 07/16/2024 14:41 /es/ LUCIA SHERIDAN REGISTERED NURSE === --- Original Document --- 07/09/24 CCC: CLINICAL TRIAGE: Patient Demographics Patient Name: KAM GELLER Patient Primary Address: [address] [place] [address] Patient Primary Phone: [phone] Patient : 1950 Patient Age: 73 Call Back Number: [phone] Caller/Recipient Relation to Patient: Self Caller Name: KAM GELLER Emergency Contact: MEI GELLER Triage Summary Conducted triage/discussed symptoms Utilized the Triage Tool: Yes Chief Complaint: Chronic Back Pain System WHEN: Within 24 Hours Nurse's Recommendation / WHEN: Within 24 Hours System WHERE: Clinic Nurse's Recommendation / WHERE: Clinic/[facility] Patient Disposition Patient/Caregiver agrees to plan of care: No Nursing Plan and Disposition Other course(s) of action Generated msg to PACT/Provider Provided guidance for worsening symptoms: *Caller/Patient* advised to call facilities [place] Clinical Contact Center or seek immediate medical attention for new or worsening symptoms Nurse Summary Nurse Summary: [facility] called stating, ''he would like to request pain medication for neck and chronic lower back pain''. States he needs to use a walker to get around. He has not been taking anything for pain. He is requesting xtampsza. Someone gave it to him and he tried it and it helped. His pain level is 10/10 all day. WOULD LIKE A CALL BACK TO discuss pain medication. *See [facility] details below for additional +/- signs & symptoms. RN RECOMMENDATION: F2F or telephone visit with PCP within 24 hours. [facility] would like a call back from PACT to discuss pain management. WILL FORWARD TO PACT FOR FOLLOW UP. Discussed contacting the [facility] triage for any new or worsening sx Clinical Contact Center Codes Clinic/Location: V1 CWM PHONE [facility] RN Decision Support System Output: Triage Complete Triage Date: 07/09/2024, 04:01 PM Triage Note: Decision Support Tool Used: [facility] Phone Triage Tue, 09 Jul 2024 20:55:51 +0000 [facility] Demographics 73 y/o Male Results CC: Chronic Back Pain Software suggested: Within 24 Hours Software suggested follow-up location: Clinic Values and Measures Duration of CC: 1 Years Positive Responses HPI: leg weakness, new or worsening IMPORTANT: This note was created by [facility] Clinical Contact Center staff. Please do not alert the staff member by adding them as a signer for future communications. Alerts are not monitored by this user. /jose cruz/ IVET MACIASN RN VISN1 [facility] RN Signed: 07/09/2024 16:06 Receipt Acknowledged By: 07/10/2024 14:40 /jose cruz/ Melissa Irby RN Registered Nurse for LUCIA SHERIDAN 07/10/2024 16:14 /jose cruz/ GALINDO MCCRACKEN LPN LPN 07/10/2024 ADDENDUM STATUS: COMPLETED Forward to PCP for review of 's request for pain medication. /shantel Irby RN Registered Nurse Signed: 07/10/2024 14:39 Receipt Acknowledged By: 07/16/2024 09:22 /jose cruz/ WAYNE MCCLENDON NP NURSE PRACTITIONER WAYNE MCCLENDON [place] [facility] [place] [facility] Jul 10, 2024 02:39 PM ADDENDUM: LOCAL TITLE: Addendum STANDARD TITLE: ADDENDUM DATE OF NOTE: JUL 10, 2024@14:39:25 ENTRY DATE: JUL 10, 2024@14:39:26 AUTHOR: MELISSA IRBY EXP COSIGNER: URGENCY: STATUS: COMPLETED Forward to PCP for review of 's request for pain medication. /shantel Irby RN Registered Nurse Signed: 07/10/2024 14:39 Receipt Acknowledged By: 07/16/2024 09:22 /jose cruz/ WAYNE MCCLENDON NP NURSE PRACTITIONER === --- Original Document --- 07/09/24 CCC: CLINICAL TRIAGE: Patient Demographics Patient Name: KAM GELLER Patient Primary Address: [address] [place] [address] Patient Primary Phone: [phone] Patient : 1950 Patient Age: 73 Call Back Number: [phone] Caller/Recipient Relation to Patient: Self Caller Name: KAM GELLER Emergency Contact: MEI GELLER Triage Summary Conducted triage/discussed symptoms Utilized the Triage Tool: Yes Chief Complaint: Chronic Back Pain System WHEN: Within 24 Hours Nurse's Recommendation / WHEN: Within 24 Hours System WHERE: Clinic Nurse's Recommendation / WHERE: Clinic/[facility] Patient Disposition Patient/Caregiver agrees to plan of care: No Nursing Plan and Disposition Other course(s) of action Generated msg to PACT/Provider Provided guidance for worsening symptoms: *Caller/Patient* advised to call facilities [place] Clinical Contact Center or seek immediate medical attention for new or worsening symptoms Nurse Summary Nurse Summary: called stating, ''he would like to request pain medication for neck and chronic lower back pain''. States he needs to use a walker to get around. He has not been taking anything for pain. He is requesting xtampsza. Someone gave it to him and he tried it and it helped. His pain level is 10/10 all day. WOULD LIKE A CALL BACK TO discuss pain medication. *See [facility] details below for additional +/- signs & symptoms. RN RECOMMENDATION: F2F or telephone visit with PCP within 24 hours. The would like a call back from PACT to discuss pain management. WILL FORWARD TO PACT FOR FOLLOW UP. Discussed contacting the [facility] triage for any new or worsening sx Clinical Contact Center Codes Clinic/Location: V1 CWM PHONE [facility] RN Decision Support System Output: Triage Complete Triage Date: 07/09/2024, 04:01 PM Triage Note: Decision Support Tool Used: [facility] Phone Triage 09 Jul 2024 20:55:51 +0000 [facility] Demographics 73 y/o Male Results CC: Chronic Back Pain Software suggested: Within 24 Hours Software suggested follow-up location: Clinic Values and Measures Duration of CC: 1 Years Positive Responses HPI: leg weakness, new or worsening IMPORTANT: This note was created by [facility] Clinical Contact Center staff. Please do not alert the staff member by adding them as a signer for future communications. Alerts are not monitored by this user. /jose cruz/ IVET MACIASN RN VISN1 CCC RN Signed: 07/09/2024 16:06 Receipt Acknowledged By: 07/10/2024 14:40 /es/ Melissa Irby, RN Registered Nurse for LUCIA SHERIDAN 07/10/2024 16:14 /es/ ROBERTA NOE LPN, [facility] Jul 09, 2024 04:05 PM RN PROGRESS NOTE: LOCAL TITLE: CCC: CLINICAL TRIAGE STANDARD TITLE: RN PROGRESS NOTE DATE OF NOTE: JUL 09, 2024@16:05:56 ENTRY DATE: JUL 09, 2024@16:05:56 AUTHOR: IVET RODRIGUEZ EXP COSIGNER: URGENCY: STATUS: COMPLETED CCC: CLINICAL TRIAGE Has ADDENDA Patient Demographics Patient Name: KAM GELLER Patient Primary Address: [address] [place] [address] Patient Primary Phone: [phone] Patient : 1950 Patient Age: 73 Call Back Number: [phone] Caller/Recipient Relation to Patient: Self Caller Name: KAM GELLER Emergency Contact: MEI GELLER Triage Summary Conducted triage/discussed symptoms Utilized the Triage Tool: Yes Chief Complaint: Chronic Back Pain System WHEN: Within 24 Hours Nurse's Recommendation / WHEN: Within 24 Hours System WHERE: Clinic Nurse's Recommendation / WHERE: Clinic/[facility] Patient Disposition Patient/Caregiver agrees to plan of care: No Nursing Plan and Disposition Other course(s) of action Generated msg to PACT/Provider Provided guidance for worsening symptoms: *Caller/Patient* advised to call facilities [place] Clinical Contact Center or seek immediate medical attention for new or worsening symptoms Nurse Summary Nurse Summary: called stating, ''he would like to request pain medication for neck and chronic lower back pain''. States he needs to use a walker to get around. He has not been taking anything for pain. He is requesting xtampsza. Someone gave it to him and he tried it and it helped. His pain level is 10/10 all day. WOULD LIKE A CALL BACK TO discuss pain medication. *See [facility] details below for additional +/- signs & symptoms. RN RECOMMENDATION: F2F or telephone visit with PCP within 24 hours. The would like a call back from [facility] to discuss pain management. WILL FORWARD TO PACT FOR FOLLOW UP. Discussed contacting the [facility] triage for any new or worsening sx Clinical Contact Center Codes Clinic/Location: V1 CWM PHONE [facility] RN Decision Support System Output: Triage Complete Triage Date: 07/09/2024, 04:01 PM Triage Note: Decision Support Tool Used: [facility] Phone Triage Tue, 09 Jul 2024 20:55:51 +0000 [facility] Demographics 73 y/o Male Results CC: Chronic Back Pain Software suggested: Within 24 Hours Software suggested follow-up location: Clinic Values and Measures Duration of CC: 1 Years Positive Responses HPI: leg weakness, new or worsening IMPORTANT: This note was created by [facility] Clinical Contact Center staff. Please do not alert the staff member by adding them as a signer for future communications. Alerts are not monitored by this user. /jose cruz/ IVET CROCKER RN VISN1 [facility] RN Signed: 07/09/2024 16:06 Receipt Acknowledged By: 07/10/2024 14:40 /jose cruz/ Melissa Irby RN Registered Nurse for LUCIA SHERIDAN 07/10/2024 16:14 /es/ GALINDO MCCRACKEN LPN LPN 07/10/2024 ADDENDUM STATUS: COMPLETED Forward to PCP for review of 's request for pain medication. /shantel Irby RN Registered Nurse Signed: 07/10/2024 14:39 Receipt Acknowledged By: 07/16/2024 09:22 /jose cruz/ WAYNE MCLCENDON NP NURSE PRACTITIONER 07/16/2024 ADDENDUM STATUS: COMPLETED Please refer to note 06/08/2024 regarding pain medication. /shantel MCCLENDON NP NURSE PRACTITIONER Signed: 07/16/2024 09:26 Receipt Acknowledged By: 07/16/2024 14:41 /jose cruz/ LUCIA SHERIDAN REGISTERED NURSE 07/16/2024 ADDENDUM STATUS: COMPLETED MSA: Please send secure message, thank you. Mr. Geller, Xstampza is a form of oxycodone. You have been following with [facility] for your chronic pain syndrome. YENY Mcclendon, recommends you consult with the providers at that clinic regarding xstampza. Thank you for your service. /jose cruz/ LUCIA SHERIDAN REGISTERED NURSE Signed: 07/16/2024 14:58 Receipt Acknowledged By: 07/16/2024 15:18 /jose cruz/ ТАТЬЯНА PEPPER ADVANCE HALF SECTION IRONER 07/16/2024 ADDENDUM STATUS: COMPLETED THIS WRITE SENT REPLY VIA MY [facility]ET PER RN SEE CPRS MESSAGE /shantel PEPPER ADVANCE HALF SECTION IRONER Signed: 07/16/2024 15:18 IV[facility]OD[facility]IGUEZ [facility]
--- OUTSIDE RECORDS SUMMARY | 2024-07-26 17:02 | XMS_ITS | Encounter Summary ---
Author Name [facility] [place] Address [address] [place] [id number] Care Team Providers Care Field Service Engineer Name Role Phone WAYNE WHEATLEY Primary [...] Patient's Relationship to Policy [employer] MEDICARE ADVANTAGE [facility] ([facility]) Aug 25, 2001 [facility] ([facility]) [id number] TIERNEYADRIANA RUSSO PATIENT MEDICARE ([facility]) MEDICARE (M) PART A Oct 23, 2016 PART A [id number] QUE GELLER PATIENT MEDICARE ([facility]) MEDICARE (M) PART B Oct 23, 2016 PART B [id number] QUE GELLER PATIENT MEDICARE (WN) MEDICARE (M) PART B Jul 25, 2011 PART B [id number] QUE GELLER PATIENT MEDICARE ([facility]) MEDICARE (M) PART B Jul 25, 2011 PART B [id number] QUE GELLER PATIENT MEDICARE (WNR) MEDICARE (M) PART B Jul 25, 2011 PART B [id number] QUE GELLER PATIENT MEDICARE (WNR) MEDICARE (M) PART A Apr 24, 2004 PART A [id number] QUE GELLER PATIENT MEDICARE (WNR) MEDICARE (M) PART A Apr 24, 2004 PART A [id number] QUE GELLER PATIENT MEDICARE (WNR) MEDICARE (M) PART A Apr 24, 2004 PART A [id number] QUE GELLER PATIENT Selected Encounter This section includes the information on record at [place] for the Encounter. Date/Time Encounter Type Encounter Description Reason Pro vider Source May 25, 2024 12:00 AM Outpatient Encounter EVENT (HISTORICAL) IHE Encounter Template Text not used by [place] Plan of Treatment: Future Appointments (+ 6 months) and Future Tests (+/- 45 days) The Plan of Treatment section includes future care activities for the patient from all [place] treatmentfacilities. This section includes future appointments and future orders which are active, pending or scheduled. Future Appointments This section includes appointments that were scheduled to occur 6 months from the date of the Encounter, up to a maximum of 20 appointments. The data comes from all [place] treatment facilities. Appointment Date/Time Appointment Type Appointme nt Facility Name Jun 26, 2024 02:30 PM [place]ORY [place] [facility] [facility] Jun 26, 2024 03:00 PM AM[place] [facility] [place] [facility] Jun 26, 2024 03:15 PM [place] [facility] [place] [facility] Jul 03, 2024 04:00 PM [facility]IC[facility] [place] [facility] Sep 04, 2024 04:00 PM AMBULATORY - [place]IC[facility] [place] [facility] Sep 11, 2024 01:00 PM [facility]ULATORY - [place]ICINE [place] Oct 24, 2024 04:00 PM AMBULATORY - NONE [place] [facility] [place] [facility] Oct 30, 2024 01:00 PM AMBULATORY - [place]IC[place] Social History: Smoking Status (Most current) and Tobacco Use (All prior to encounter date) This section includes the most current, and the historical, smoking and tobacco- related health factors from the [place] facility where the Encounter took place. Current Smoking Status This section includes the most current smoking, or tobacco-related health factor, from the [place] facility where the Encounter took place. Date/Time Current Smoking Status Comment Catie deandray Mar 22, 2024 12:43 PM VA-TOBACCO NEVER USED [facility] Tobacco Use History This section includes a history of the smoking, or tobacco-related health factors, that were collected on or before the date of the Encounter. The data comes from the [place] facility where the Encounter took place. Date/Time Smoking Status/Tobacco Use Comment Gaby gerardo Mar 26, 2021 02:25 PM VA-TOBACCO NEVER USED [facility] Advance Directives: All historical and current Section Date Range: From patient's date of to the date document was created. This section includes ALL of a patient's completed or amended [place] Advance and Rescinded Directives. The entries below indicate that a directive exists for the patient, but an actual copy is not included with this document. The data comes from all [place] facilities. Date Advance Directives Provider Source Nov 04, 2016 ADVANCE DIRECTIVE IVONNEELSYRONY [facility] Encounter Notes: All associated encounter notes This section contains the clinical notes associated to the Encounter. Date/Time Encounter Note(s) Provider Source May 25, 2024 12:00 AM NONVA NOTE: LOCAL TITLE: NON-VA HOSPITALIZATIONS/ER STANDARD TITLE: NONVA NOTE DATE OF NOTE: MAY 25, 2024 ENTRY DATE: JUL 03, 2024@07:27:17 AUTHOR: JANINA SIERRA EXP COSIGNER: URGENCY: STATUS: COMPLETED VistA Imaging - Scanned Document SCANNED DOCUMENT SIGNATURE NOT REQUIRED Electronically Filed: 07/03/2024 by: JANINA SARMIENTO [facility]
--- OUTSIDE RECORDS SUMMARY | 2024-07-26 17:02 | XMS_ITS ---
Author Name [facility] [place] Address [address] [place] [address] Care Team Providers Care Tool Specialist Name Role Phone WAYNE WHEATLEY Primary Care [...] Name Patient's Relationship to Policy [facility]) MEDICARE ADVANTAGE [facility] ([facility]) Aug 25, 2001 [facility] ([facility]) [id number] DUYENADRIANA JOHN PATIENT MEDICARE ([facility]) MEDICARE (M) PART A Oct 23, 2016 PART A [id number] QUE GELLER PATIENT MEDICARE (WN) MEDICARE (M) PART B Oct 23, 2016 PART B [id number] QUE GELLER PATIENT MEDICARE (WN) MEDICARE (M) PART B Jul 25, 2011 PART B [id number] QUE GELLER PATIENT MEDICARE ([facility]) MEDICARE (M) PART B Jul 25, 2011 PART B [id number] QUE GELLER PATIENT MEDICARE (WNR) MEDICARE (M) PART B Jul 25, 2011 PART B [id number] [phone] QUE GELLER PATIENT MEDICARE (WNR) MEDICARE (M) PART A Apr 24, 2004 PART A [id number] QUE GELLER PATIENT MEDICARE (WNR) MEDICARE (M) PART A Apr 24, 2004 PART A [id number] QUE GELLER PATIENT MEDICARE (WNR) MEDICARE (M) PART A Apr 24, 2004 PART A [id number] QUE GELLER PATIENT Selected Encounter This section includes the information on record at [place] for the Encounter. Date/Time Encounter Type Encounter Description Reason Provider Source Jun 26, 2024 03:00 PM ECHO EXAM OF EYE THICKNESS OPTOMETRY ICD-10-CM H40.013 Open angle with borderline findings, low risk, bilateral LAMAR,MIMI [place] E Encounter Template Text not used by [place] Assessments - Encounter Diagnoses This section includes the primary and secondary diagnoses documented for the Encounter. Date/Time Primary/Secondary Diagnosis Diagnosis Name Provider Source Jun 26, 2024 03:57 PM PRIMARY Open angle with borderline findings, low risk, bilateral MIMI LAMAR [facility] [place] [facility] Jun 26, 2024 03:57 PM SECONDARY Nexdtve age-related mclr degn, bilateral, intermed dry stage MIMI LAMAR [facility] Plan of Treatment: Future Appointments (+ [...] 2024 01:00 PM AMBULATORY - MEDICINE [facility] Oct 24, 2024 04:00 PM AMBULATORY - NONE [facility] Oct 30, 2024 01:00 PM AMBULATORY - MEDICINE [facility] Social History: Smoking Status (Most [...] 2024 12:43 PM VA-TOBACCO NEVER USED [facility] Tobacco Use History This section includes a history of the smoking, or tobacco-related health factors, that were collected on or before the date of the Encounter. The data comes from the [place] facility where the Encounter took place. Date/Time Smoking Status/Tobacco Use Comment F acmartina Mar 26, 2021 02:25 PM VA-TOBACCO NEVER USED [facility] Advance Directives: All historical and [...] Nov 04, 2016 ADVANCE DIRECTIVE RONY URRUTIA [facility] Encounter Notes: All associated encounter notes This section contains the clinical notes associated to the Encounter. 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 OCT of left eye shows all quadrants WNL, disc area of 2.08, average CDR of 0.69 and vertical CDR of 0.72, average RNFL thickness of 93??m. RNFL symmetry 79%. P: Keep follow-up as scheduled, ed re today's findings. [place] repeated back the plan and education. 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 OCT of left eye shows diffuse drusen without evidence of conversion to wet ARMD. P: Keep follow-up as scheduled, ed re today's findings. [place] repeated back the plan and education. Pachymetry: OD: 479 OS: 484 /es/ MIMI LAMAR, OD GEOGRAPHIC INFORMATION SYSTEM SURVEYOR Signed: 06/26/2024 16:02 MIMI LAMAR [facility]
--- OUTSIDE RECORDS SUMMARY | 2024-07-26 17:02 | XMS_ITS | Encounter Summary ---
Author Name [place] Address [address] [place] [address] Care Team Providers Care Hoop Punch Operator Helper Name Role Phone WAYNE WHEATLEY [...] Name Patient's Relationship to Policy [facility]) MEDICARE ADVANTAGE [facility] ([facility]) Aug 25, 2001 [facility] ([facility]) [id number] DOMADRIANA SALINAS JOHN PATIENT MEDICARE ([facility]) MEDICARE (M) PART A Oct 23, 2016 PART A [id number] QUE GELLER PATIENT MEDICARE ([facility]) MEDICARE (M) PART B Oct 23, 2016 PART B [id number] QUE GELLER PATIENT MEDICARE ([facility]) MEDICARE (M) PART B Jul 25, 2011 PART B [id number] QUE GELLER PATIENT MEDICARE ([facility]) MEDICARE (M) PART B Jul 25, 2011 PART B [id number] QUE GELLER PATIENT MEDICARE (WNR) MEDICARE (M) PART B Jul 25, 2011 PART B [id number] QUE GELLER PATIENT MEDICARE (WNR) MEDICARE (M) PART A Apr 24, 2004 PART A [id number] [phone] QUE GELLER PATIENT MEDICARE (WNR) MEDICARE (M) PART A Apr 24, 2004 PART A [id number] QUE GELLER PATIENT MEDICARE (WNR) MEDICARE (M) PART A Apr 24, 2004 PART A [id number] [phone] QUE GELLER PATIENT Selected Encounter This section includes the information on record at [place] for the Encounter. Date/Time Encounter Type Encounter Description Reason Provider Source Jun 26, 2024 03:26 PM FIT SPECTACLES BIFOCAL OPTOMETRY ICD-10-CM Z46.0 Encounter for fit/adjst of spectacles and contact lenses MIMI LAMAR Harris Encounter Template Text not used by [place] Assessments - Encounter Diagnoses This section includes the primary and secondary diagnoses documented for the Encounter. Date/Time Primary/Secondary Diagnosis Diagnosis Name Provider Source Jun 26, 2024 03:26 PM PRIMARY Encounter for fit/adjst of spectacles and contact lenses ANGELA SYKES [place] CNTRMaryanne WSABDELRAHMAN MARTINEZ [facility] Plan of Treatment: Future Appointments (+ 6 [...] AMBULATORY - [facility]ICINE [place] [facility] Sep 04, 2024 04:00 PM AMBULATORY - [facility]ICINE [place] [facility] Sep 11, 2024 01:00 PM AM[facility]ULATORY - MEDICINE [facility] Oct 24, 2024 04:00 PM AMBULATORY - NONE [facility] Oct 30, 2024 01:00 PM AMBULATORY - MEDICINE [facility] Social History: Smoking Status (Most current) [...] 22, 2024 12:43 PM VA-TOBACCO NEVER USED [facility] Tobacco Use History This section includes a history of the smoking, or tobacco-related health factors, that were collected on or before the date of the Encounter. The data comes from the [place] facility where the Encounter took place. Date/Time Smoking Status/Tobacco Use Comment F gerardo Mar 26, 2021 02:25 PM VA-TOBACCO NEVER USED [facility] Advance Directives: All historical and current [...] Source Nov 04, 2016 ADVANCE DIRECTIVE IVONNEELSYRONY [facility] Encounter Notes: All associated encounter notes This section contains the clinical notes associated to the Encounter. Date/Time Encounter Note(s) Provider Source Jun 26, 2024 03:26 PM OPTOMETRY NOTE: LOCAL TITLE: OPTOMETRY NOTE STANDARD TITLE: OPTOMETRY NOTE DATE OF NOTE: JUN 26, 2024@15:26 ENTRY DATE: JUN 26, 2024@15:26:39 AUTHOR: GALINDO HARDING COSIGNER: URGENCY: STATUS: COMPLETED OPTOMETRY NOTE Has ADDENDA The quote provided below is for informational purposes only. Please verify prior to the creation of a purchase order. KAM GELLER 2097 RX INFORMATION OD +1.50 -2.75 X90 Add:+2.75 Pzm:0.00 Dir: Prz2:0.00 Dir2: OS +3.25 -2.75 X90 Add:+2.75 Pzm:0.00 Dir: Prz2:0.00 Dir2: FITTING INFORMATION FPD:67 NPD:64 [place]:R: L: SEG HT:R:14 L:14 Tint:YELLOW Shade:2 VA Billable Items FRAME: WILLY[place] SOLANGEMETAL 18145 Right Lens: POLY BIFOCAL FT28 1.586 POLY Left Lens: POLY BIFOCAL FT28 1.586 POLY KLEAR ANTI-REFLECTIVE COATING SOLID TINT CLIN items [employer] - AR Coating 0002 - Bifocal - Glass Plastic Poly The quote provided below is for informational purposes only. Please verify prior to the creation of a purchase order. KAM GELLER 2096 RX INFORMATION OD +1.50 -2.75 X90 Add:+2.75 Pzm:0.00 Dir: Prz2:0.00 Dir2: OS +3.25 -2.75 X90 Add:+2.75 Pzm:0.00 Dir: Prz2:0.00 Dir2: FITTING INFORMATION FPD:67 NPD:64 [place]:R: L: SEG HT:R:14 L:14 Tint:NAS Shade:3 VA Billable Items FRAME: [facility] Right Lens: POLY BIFOCAL FT28 1.586 POLY Left Lens: POLY BIFOCAL FT28 1.586 POLY KLEAR ANTI-REFLECTIVE COATING SOLID TINT CLIN items [employer] - AR Coating 0002 - Bifocal - Glass Plastic Poly /jose cruz/ GALINDO HARDING PROGRAMMER ANALYST Signed: 06/26/2024 15:26 Receipt Acknowledged By: 06/26/2024 15:29 /jose cruz/ Angela Sykes LPN Licensed Practical Nurse 06/26/2024 ADDENDUM STATUS: COMPLETED PDS energy assistant fit 2 Bifocal eyeglasses on 06/26/2024. OPT HT entered consult(s) as requested for provider signature. /jose cruz/ Angela Sykes LPN Licensed Practical Nurse Signed: 06/26/2024 15:31 GALINDO HARDING [facility]
--- OUTSIDE RECORDS SUMMARY | 2024-07-26 17:02 | XMS_ITS | Encounter Summary ---
Author Name [place] Address [address] [place] [address] Care Team Providers Care Petroleum Plant Operator Name Role Phone WAYNE WHEATLEY [...] Name Patient's Relationship to Policy [facility]) MEDICARE ADVANTAGE [facility] ([facility]) Aug 25, 2001 [facility] ([facility]) [id number] DOMADRIANA SALINAS JOHN PATIENT MEDICARE ([facility]) MEDICARE (M) PART A Oct 23, 2016 PART A [id number] QUE GELLER PATIENT MEDICARE ([facility]) MEDICARE (M) PART B Oct 23, 2016 PART B [id number] QUE GELLER PATIENT MEDICARE ([facility]) MEDICARE (M) PART B Jul 25, 2011 PART B [id number] 97A QUE GELLER PATIENT MEDICARE ([facility]) MEDICARE (M) PART B Jul 25, 2011 PART B [id number] 97A QUE GELLER PATIENT MEDICARE (WNR) MEDICARE (M) PART B Jul 25, 2011 PART B [id number] QUE GELLER PATIENT MEDICARE (WNR) MEDICARE (M) PART A Apr 24, 2004 PART A [id number] [phone] QUE GELLER PATIENT MEDICARE (WNR) MEDICARE (M) PART A Apr 24, 2004 PART A [id number] 97A [phone] QUE GELLER PATIENT MEDICARE (WNR) MEDICARE (M) PART A Apr 24, 2004 PART A [id number] [phone] QUE GELLER PATIENT Selected Encounter This section includes the information on record at [place] for the Encounter. Date/Time Encounter Type Encounter Description Reason Pro vider Source Jun 26, 2024 02:35 PM Outpatient Encounter ADMIN PAT ACTIVTIES (MASNONCT) [...] 04:00 PM AMBULATORY - NONE [place] CN[facility] WSTRZeina [facility] Oct 30, 2024 01:00 PM AMBULATORY [...] the Encounter. The data comes from the [place] facility where the Encounter [...] Nov 04, 2016 ADVANCE DIRECTIVE RONY URRUTIA [facility] Encounter Notes: All associated encounter notes This section contains the clinical notes associated to the Encounter. Date/Time Encounter Note(s) Provider Source Jun 26, 2024 02:35 PM ADMINISTRATIVE NOTE: LOCAL TITLE: CCC: SCHEDULING ADMINISTRATION STANDARD TITLE: ADMINISTRATIVE NOTE DATE OF NOTE: JUN 26, 2024@14:35:04 ENTRY DATE: JUN 26, 2024@14:35:05 AUTHOR: MATHEW CASTELLANOS COSIGNER: URGENCY: STATUS: COMPLETED CCC: SCHEDULING ADMINISTRATION Has ADDENDA Patient Demographics Patient Name: KAM GELLER Patient Primary Phone: [phone] Patient Primary Address: [address] [place] [address] Patient : 1950 Patient Age: 73 Call Back Number: [phone] Caller/Recipient Relation to Patient: Other If Other Describe Relation to Patient: [facility] Caller Name: Emelia Cork Floor Installer Administrative Administrative Note Reason: Other Administrative Note Comments: Emelia, Cork Floor Installer from [facility] [phone] - needs auth for intrathecal pain pump removal - date pending on auth - will be an O/P procedure at [facility] - Dr. Rodrick Mckeon - fax auth to [phone] IMPORTANT: This note was created by [facility] Clinical Contact Center staff. Please do not alert the staff member by adding them as a signer for future communications. Alerts are not monitored by this user. /jose cruz/ MATHEW FORD [facility] AMSA Signed: 06/26/2024 14:35 Receipt Acknowledged By: 06/27/2024 08:30 /jose cruz/ LUCIA SHERIDAN REGISTERED NURSE 06/27/2024 14:41 /jose cruz/ GALINDO MCCRACKEN LPN LPN 06/27/2024 ADDENDUM STATUS: COMPLETED Email message sent on 06/26/24 to [facility] to ask if current active authorization includes removal of pump, awaiting response. /shantel SHERIDAN REGISTERED NURSE Signed: 06/27/2024 08:32 MATHEW CASTELLANOS [place] CNTR[facility]
--- OUTSIDE RECORDS SUMMARY | 2024-07-26 17:03 | XMS_ITS | Encounter Summary ---
Author Name Department [place] Address [address] [place] [address] Care Team Providers Care Systems Support Officer Name Role Phone WAYNE HWEATLEY Primary Care Provider Unavailabl e Insurance Providers: [...] Name Patient's Relationship to Policy [facility]) MEDICARE ADVANTAGE [facility] ([facility]) Aug 25, 2001 [facility] ([facility]) [id number] ADRIANA GELLER PATIENT MEDICARE ([facility]) MEDICARE (M) PART A Oct 23, 2016 PART A [id number] QUE GELLER PATIENT MEDICARE (WN) MEDICARE (M) PART B Oct 23, 2016 PART B [id number] QUE GELLER PATIENT MEDICARE (WN) MEDICARE (M) PART B Jul 25, 2011 PART B [id number] 97A QUE GELLER PATIENT MEDICARE (WN) MEDICARE (M) PART B Jul 25, 2011 PART B [id number] 97A QUE GELLER PATIENT MEDICARE (WNR) MEDICARE (M) PART B Jul 25, 2011 PART B [id number] [phone] QUE GELLER PATIENT MEDICARE (WNR) MEDICARE (M) PART A Apr 24, 2004 PART A [id number] 97A QUE GELLER PATIENT MEDICARE (WNR) MEDICARE (M) PART A Apr 24, 2004 PART A [id number] QUE GELLER PATIENT MEDICARE (WNR) MEDICARE (M) PART A Apr 24, 2004 PART A [id number] QUE GELLER PATIENT Selected Encounter This section includes the information on record at [place] for the Encounter. Date/Time Encounter Type Encounter Description Reason Pro vider Source May 29, 2024 03:25 PM Outpatient Encounter ADMIN PAT ACTIVTIES (MASNONCT) IHE Encounter Template Text not used by [place] Plan of Treatment: Future Appointments (+ 6 months) and Future Tests (+/- 45 days) The Plan of Treatment section includes future care activities for the patient from [facility] [place] [facility]. This section includes future appointments and future orders which are active, pending or scheduled. Future Appointments This section includes appointments that were scheduled to occur 6 months from the date of the Encounter, up to a maximum of 20 appointments. The data comes from all [place] treatment facilities. Appointment Date/Time Appointment Type Appointme nt Facility Name Jun 26, 2024 02:30 PM AMBULATORY - MEDICINE [place] [facility] [place] [place] [facility] Jun 26, 2024 03:00 PM AMBULATORY - MEDICINE [place] [facility] [place] [facility] Jun 26, 2024 03:15 PM AMBULATORY - MEDICINE [place] [facility] [place] [facility] Jul 03, 2024 04:00 PM [facility]ATORY - [facility]IC[facility] [place] [facility] Sep 04, 2024 04:00 PM AM[facility]ULATORY - [facility]IC[facility] [place] [facility] Sep 11, 2024 01:00 PM AM[place]ULATORY - [place]ICINE [place] Oct 24, 2024 04:00 PM AMBULATORY - NONE [place] [facility] [place] [place] [facility] Oct 30, 2024 01:00 PM AMBULATORY - MEDICINE [place] Advance Directives: All historical and current Section Date Range: From patient's date of to the date document was created. This section includes ALL of a patient's completed or amended VA Advance and Rescinded Directives. The entries below indicate that a directive exists for the patient, but an actual copy is not included with this document. The data comes from all [place] facilities. Date Advance Directives Provider Source Nov 04, 2016 ADVANCE DIRECTIVE RONY URRUTIA [place] CNTR L [facility] Encounter Notes: All associated encounter notes This section contains the clinical notes associated to the Encounter. Date/Time Encounter Note(s) Provider Source May 29, 2024 03:25 PM GASTROENTEROLOGY L ETTERS: LOCAL TITLE: GASTROENTEROLOGY/HEPATOLOGY SCHEDULE LETTER STANDARD TITLE: GASTROENTEROLOGY LETTERS DATE OF NOTE: MAY 29, 2024@15:25 ENTRY DATE: MAY 29, 2024@15:25:34 AUTHOR: ERIK PARADA COSIGNER: URGENCY: STATUS: COMPLETED DEPARTMENT [facility] [address] [place] [address] Patient Call Center: MAY 29, 2024 [address] GELLER [address] [place] [phone] Dear El Geller, A specialty sales representative from [facility] has made several attempts to contact you regarding your referral for a Gastroenterology appointment, this appointment is a consultation with Gastroenterology Specialist. They have not had a response to the voice messages or the phone calls made to you regarding scheduling of this appointment. Please call the Gastroenterology Schedulers at one of these numbers to make the appointment [phone] If we do not hear back from you by May, we will assume that you do not wish to schedule your Gastroenterology appointment at this time, your Primary Care Provider will be notified. If you change your mind at a later date, you can request that your [place] Primary Care Provider make a new referral. Thank you for your cooperation. If you have questions, you may also use Secure Messaging in My [place]. In case of emergency, please do not leave message at any of these numbers, rather call 911. Sincerely, Gastroenterology / Hepatology Services Department of [place] ERIK PARADA [facility]
--- OUTSIDE RECORDS SUMMARY | 2024-07-26 17:03 | XMS_ITS | Encounter Summary ---
Author Name [place] Address [address] [place] [address] Care Team Providers Care Policy Intern Name Role Phone WAYNE WHEATLEY Primary Care [...] Name Patient's Relationship to Policy [facility]) MEDICARE ADVANTAGE [facility] ([facility]) Aug 25, 2001 [facility] ([facility]) [id number] TIERNEYADRIANA RUSSO PATIENT MEDICARE ([facility]) MEDICARE (M) PART A Oct 23, 2016 PART A [id number] QUE GELLER PATIENT MEDICARE ([facility]) MEDICARE (M) PART B Oct 23, 2016 PART B [id number] QUE GELLER PATIENT MEDICARE ([facility]) MEDICARE (M) PART B Jul 25, 2011 PART B [id number] QUE GELLER PATIENT MEDICARE ([facility]) MEDICARE (M) PART B Jul 25, 2011 PART B [id number] [phone] QUE GELLER PATIENT MEDICARE ([facility]NR) MEDICARE (M) PART B Jul 25, 2011 PART B [id number] [phone] 4 QUE GELLER PATIENT MEDICARE ([facility]NR) MEDICARE (M) PART A Apr 24, 2004 PART A [id number] [phone] QUE GELLER PATIENT MEDICARE ([place]NR) MEDICARE (M) PART A Apr 24, 2004 PART A [id number] [phone] QUE GELLER PATIENT MEDICARE ([facility]NR) MEDICARE (M) PART A Apr 24, 2004 PART A [id number] QUE GELLER PATIENT Selected Encounter This section includes the information on record at [place] for the Encounter. Date/Time Encounter Type Encounter Description Reason Pro vider Source Jul 26, 2024 08:35 AM Outpatient Encounter PRIMARY CARE/MEDICINE IHE Encounter Template Text not used by [place] Plan of Treatment: Future Appointments (+ 6 months) and Future Tests (+/- 45 days) The Plan of Treatment section includes future care activities for the patient from all [place] treatmentfacilities. This section includes future appointments and [...] AMBULATORY - MEDICINE [facility] Oct 24, 2024 04:00 PM AMBULATORY - NONE [place] [facility] [place] [facility] Oct 30, 2024 01:00 PM AMBULATORY - MEDICINE [place] Dec 26, 2024 01:30 PM AMBULATORY - MEDICINE [place] [facility] [facility] Dec 26, 2024 02:30 PM AMBULATORY - MEDICINE [place] [facility] [place] [facility] Social History: Smoking Status (Most current) [...] 22, 2024 12:43 PM VA-TOBACCO NEVER USED [facility] Tobacco Use History This section [...] Source Nov 04, 2016 ADVANCE DIRECTIVE [facility] Encounter Notes: All associated encounter notes This section contains the clinical notes associated to the Encounter. Date/Time Encounter Note(s) Provider Source Jul 26, 2024 08:35 AM LETTERS: LOCAL TITLE: PATIENT LETTER (B) STANDARD TITLE: LETTERS DATE OF NOTE: JUL 26, 2024@08:35 ENTRY DATE: JUL 26, 2024@08:35:23 AUTHOR: CAMILLA MUÑOZ COSIGNER: URGENCY: STATUS: COMPLETED [facility] [address] [place] [id number] [phone] * KAM GELLER [address], [place] [address] Date: JUL 26, 2024 Dear Dalton: Our goal at the [facility] is to provide you with quality medical care. We have been trying to reach you unsuccessfully to schedule a appt with you at the [facility], [address] [place] [address] Please call us at Tuesday through Tuesday, 8am-4pm to schedule this appointment. Sincerely, Office Staff for: Primary Care [facility] [address] [place] [address] T [phone] CAMILLA MUÑOZ ANNONA
--- OUTSIDE RECORDS SUMMARY | 2024-07-26 17:03 | XMS_ITS | Encounter Summary ---
Author Name [place] Address [address] [place] [address] Care Team Providers Care Division Commander Name Role Phone WAYNE WHEATLEY Primary Care [...] Name Patient's Relationship to Policy Waldrop [facility]) MEDICARE ADVANTAGE [facility] ([facility]) Aug 25, 2001 [facility] ([facility]) [id number] DUYENADRIANA JOHN PATIENT MEDICARE (WN) MEDICARE (M) PART A Oct 23, 2016 PART A [id number] [phone] QUE GELLER PATIENT MEDICARE (WN) MEDICARE (M) PART B Oct 23, 2016 PART B [id number] QUE GELLER PATIENT MEDICARE (WN) MEDICARE (M) PART B Jul 25, 2011 PART B [id number] QUE GELLER PATIENT MEDICARE ([facility]) MEDICARE (M) PART B Jul 25, 2011 PART B [id number] QUE GELLER PATIENT MEDICARE (WNR) MEDICARE (M) PART B Jul 25, 2011 PART B [id number] QUE GELLER PATIENT MEDICARE (WNR) MEDICARE (M) PART A Apr 24, 2004 PART A [id number] 97A QUE GELLER PATIENT MEDICARE (WNR) MEDICARE (M) PART A Apr 24, 2004 PART A [id number] [phone] QUE GELLER PATIENT MEDICARE (WNR) MEDICARE (M) PART A Apr 24, 2004 PART A [id number] QUE GELLER PATIENT Selected Encounter This section includes the information on record at [place] for the Encounter. Date/Time Encounter Type Encounter Description Reason Pro vider Source Jul 26, 2024 02:28 PM Outpatient Encounter ADMIN PAT ACTIVTIES (MASNONCT) IHE Encounter Template Text not used by [place] Plan of Treatment: Future Appointments (+ 6 months) and Future Tests (+/- 45 days) The Plan of Treatment section includes future care activities for the patient from all [place] treatmentfacilities. This section includes future appointments and [...] 2024 04:00 PM AMBULATORY - MEDICINE [facility] Sep 11, 2024 01:00 PM [facility]ULATORY - MEDICINE [facility] Oct 24, 2024 04:00 PM AMBULATORY - NONE [place] [facility] [place] [facility] Oct 30, 2024 01:00 PM AM[place]ORY - [place]ICINE [place] Dec 26, 2024 01:30 PM AMBULATORY - MEDICINE [place] [facility] Dec 26, 2024 02:30 PM [facility] Social History: Smoking Status (Most current) and [...] 22, 2024 12:43 PM VA-TOBACCO NEVER USED [facility] Tobacco Use History This section includes a history of the smoking, or tobacco-related health factors, that were collected on or before the date of the Encounter. The data comes from the [place] facility where the Encounter took place. Date/Time Smoking Status/Tobacco Use Comment Gaby carrillo Mar 26, 2021 02:25 PM VA-TOBACCO NEVER USED [facility] Advance Directives: All historical and [...] Source Nov 04, 2016 ADVANCE DIRECTIVE [facility]ONNEELSYRONY [facility] Encounter Notes: All associated encounter notes This section contains the clinical notes associated to the Encounter. Date/Time Encounter Note(s) Provider Source Jul 26, 2024 02:28 PM ADMINISTRATIVE NOT E: LOCAL TITLE: CCC: SCHEDULING ADMINISTRATION STANDARD TITLE: ADMINISTRATIVE NOTE DATE OF NOTE: JUL 26, 2024@14:28:17 ENTRY DATE: JUL 26, 2024@14:28:18 AUTHOR: MELISSA VEE COSIGNER: URGENCY: STATUS: COMPLETED CCC: SCHEDULING ADMINISTRATION Has ADDENDA Patient Demographics Patient Name: KAM GELLER Patient Primary Phone: [phone] Patient Primary Address: [address] [place] [address] Patient : 1950 Patient Age: 73 Current Location: [place] Call Back Number: [phone] Caller/Recipient Relation to Patient: Other If Other Describe Relation to Patient: provider pain managment Caller Name: Emelia Administrative Administrative Note Reason: Other Administrative Note Comments: Emelia with the pain management clinic at [facility] calling to inquire whether or not removal of a pain pump requires preauthorization and is requesting a call back at [phone] to discuss or if needed preauthorization can be faxed to [phone] IMPORTANT: This note was created by [facility] Clinical Contact Center staff. Please do not alert the staff member by adding them as a signer for future communications. Alerts are not monitored by this user. /jose cruz/ MELISSA VEE Signed: 07/26/2024 14:28 Receipt Acknowledged By: 07/26/2024 14:45 /jose cruz/ LUCIA SHERIDAN REGISTERED NURSE * AWAITING SIGNATURE * GALINDO MCCRACKEN 07/26/2024 ADDENDUM STATUS: COMPLETED Email sent to [facility] for clarification. Awaiting response, will update when known. /shantel SHERIDAN REGISTERED NURSE Signed: 07/26/2024 14:46 07/26/2024 ADDENDUM STATUS: COMPLETED Community care advise to enter new consult for removal of device. Consult placed and held for provider review and signature if appropriate. /shantel SHERIDAN REGISTERED NURSE Signed: 07/26/2024 15:13 Receipt Acknowledged By: * AWAITING SIGNATURE * WAYNE WHEATLEY,MELISSA Michelle [place] [facility]
--- OUTSIDE RECORDS SUMMARY | 2024-07-26 17:03 | XMS_ITS | Encounter Summary ---
Author Name [place] Address [address] [place] [address] Care Team Providers Care Field Artillery Fire Control Man Name Role Phone WAYNE WHEATLEY Primary Care [...] Name Patient's Relationship to Policy [facility]) MEDICARE ADVANTAGE [facility] ([facility]) Aug 25, 2001 [facility] ([facility]) [id number] TIERNEYADRIANA RUSSO PATIENT MEDICARE (WN) MEDICARE (M) PART A Oct 23, 2016 PART A [id number] QUE GELLER PATIENT MEDICARE ([facility]) MEDICARE (M) PART B Oct 23, 2016 PART B [id number] QUE GELLER PATIENT MEDICARE ([facility]) MEDICARE (M) PART B Jul 25, 2011 PART B [id number] 97A QUE GELLER PATIENT MEDICARE ([facility]) MEDICARE (M) PART B Jul 25, 2011 PART B [id number] [phone] QUE GELLER PATIENT MEDICARE (WNR) MEDICARE (M) PART B Jul 25, 2011 PART B [id number] [phone] QUE GELLER PATIENT MEDICARE (WNR) MEDICARE (M) PART A Apr 24, 2004 PART A [id number] [phone] QUE GELLER PATIENT MEDICARE (WNR) MEDICARE (M) PART A Apr 24, 2004 PART A [id number] QUE GELLER PATIENT MEDICARE (WNR) MEDICARE (M) PART A Apr 24, 2004 PART A [id number] QUE GELLER PATIENT Selected Encounter This section includes the information on record at [place] for the Encounter. Date/Time Encounter Type Encounter Description Reason Pro vider Source Jul 26, 2024 11:13 AM Outpatient Encounter ADMIN PAT ACTIVTIES (MASNONCT) IHE Encounter Template Text not used by [place] Plan of Treatment: Future Appointments (+ 6 months) and Future Tests (+/- 45 days) The Plan of Treatment section includes future care activities for the patient from all [place] treatmentfacilities. This section includes future appointments and future orders which are active, pending or scheduled. Future Appointments This section includes appointments that were scheduled to occur 6 months from the date of the Encounter, up to a maximum of 20 appointments. The data comes from all [place] treatment facilities. Appointment Date/Time Appointment Type Appointme nt Facility Name Sep 04, 2024 04:00 PM AMBULATORY - MEDICINE [facility] Sep 11, 2024 01:00 PM AMBULATORY - MEDICINE [facility] Oct 24, 2024 04:00 PM AMBULATORY - NONE [place] [facility] [place] [facility] Oct 30, 2024 01:00 PM AMBULATORY - MEDICINE [place] Dec 26, 2024 01:30 PM AMBULATORY - MEDICINE [place] [place] [facility] Dec 26, 2024 02:30 PM [facility] Social History: Smoking Status (Most current) and Tobacco Use (All prior to encounter date) This section includes the most current, and the historical, smoking and tobacco- related health factors from the [place] facility where the Encounter took place. Current Smoking Status This section includes the most current smoking, or tobacco-related health factor, from the [place] facility where the Encounter took place. Date/Time Current Smoking Status Comment Catie thompsno Mar 22, 2024 12:43 PM VA-TOBACCO NEVER USED [facility] Tobacco Use History This section includes a history of the smoking, or tobacco-related health factors, that were collected on or before the date of the Encounter. The data comes from the [place] facility where the Encounter took place. Date/Time Smoking Status/Tobacco Use Comment F gerardo Mar 26, 2021 02:25 PM VA-TOBACCO NEVER USED [facility] Advance Directives: All historical and current Section Date Range: From patient's date of to the date document was created. This section includes ALL of a patient's completed or amended [place] Advance and Rescinded Directives. The entries below indicate that a directive exists for the patient, but an actual copy is not included with this document. The data comes from all [place] facilities. Date Advance Directives Provider Source Nov 04, 2016 ADVANCE DIRECTIVE [facility]RONY [facility] Encounter Notes: All associated encounter notes This section contains the clinical notes associated to the Encounter. Date/Time Encounter Note(s) Provider Source Jul 26, 2024 11:13 AM ADMINISTRATIVE NOTE: LOCAL TITLE: CCC: SCHEDULING ADMINISTRATION STANDARD TITLE: ADMINISTRATIVE NOTE DATE OF NOTE: JUL 26, 2024@11:13:20 ENTRY DATE: JUL 26, 2024@11:13:21 AUTHOR: MASSIEL QUIÑONEZ EXP COSIGNER: URGENCY: STATUS: COMPLETED CCC: SCHEDULING ADMINISTRATION Has ADDENDA Patient Demographics Patient Name: KAM GELLER Patient Primary Phone: [phone] Patient Primary Address: [address] [place] [address] Patient : 1950 Patient Age: 73 Call Back Number: [phone] Caller/Recipient Relation to Patient: Self Caller Name: KAM GELLER Scheduling Open Request: None of the above Administrative Administrative Note Reason: Other Administrative Note Comments: IS REQUESTING A RETURN CALL TO RESCHEDULE PCP APPOINTMENT. LOG DECK TENDER COULD NOT MEET PATIENT REQUEST. HIS CONTACT NUMBER IS [phone]. IMPORTANT: This note was created by [facility] Clinical Contact Center staff. Please do not alert the staff member by adding them as a signer for future communications. Alerts are not monitored by this user. /jose cruz/ MASSIEL FORD 1 CCC MSA Signed: 07/26/2024 11:13 Receipt Acknowledged By: 07/26/2024 11:31 /jose cruz/ CAMILLA OLEARY for ТАТЬЯНА Adam SHANTELLE 07/26/2024 11:43 /es/ GALINDO MCCRACKEN LPN LPN 07/26/2024 ADDENDUM STATUS: COMPLETED Appt r/s to 10/30/24 @ 1pm. /jose cruz/ CAMILLA OLEARY Signed: 07/26/2024 11:32 MASSIEL QUIÑONEZ [place] CN[facility] [facility]
--- OUTSIDE RECORDS SUMMARY | 2024-07-26 17:03 | XMS_ITS ---
Author Name [place] Address [address] [place] [address] Care Team Providers Care Machine Buffer Name Role Phone WAYNE MCCLENDON Primary Care [...] Policy Waldrop's Name Patient's Relationship to Policy [facility]) MEDICARE ADVANTAGE [facility] ([facility]) Aug 25, 2001 [facility] ([facility]) [id number] TIERNEYADRIANA RUSSO PATIENT MEDICARE ([facility]) MEDICARE (M) PART A Oct 23, 2016 PART A [id number] QUE GELLER PATIENT MEDICARE ([facility]) MEDICARE (M) PART B Oct 23, 2016 PART B [id number] QUE GELLER PATIENT MEDICARE ([facility]) MEDICARE (M) PART B Jul 25, 2011 PART B [id number] [phone] QUE GELLER PATIENT MEDICARE ([facility]) MEDICARE (M) PART B Jul 25, 2011 PART B [id number] [phone] QUE GELLER PATIENT MEDICARE (WNR) MEDICARE (M) PART B Jul 25, 2011 PART B [id number] QUE GELLER PATIENT MEDICARE (WNR) MEDICARE (M) PART A Apr 24, 2004 PART A [id number] QUE GELLER PATIENT MEDICARE (WNR) MEDICARE (M) PART A Apr 24, 2004 PART A [id number] 97A QUE GELLER PATIENT MEDICARE (WNR) MEDICARE (M) PART A Apr 24, 2004 PART A [id number] QUE GELLER PATIENT Selected Encounter This section includes the information on record at [place] for the Encounter. Date/Time Encounter Type Encounter Description Reason Pro vider Source Jul 16, 2024 03:16 PM Outpatient Encounter PRIMARY CARE/MEDICINE IHE Encounter [...] PM AMBULATORY - [facility]ICINE [facility] Sep 11, 2024 01:00 PM AMBULATORY - MEDICINE [facility] Oct 24, 2024 04:00 PM AMBULATORY - NONE [place] [place] [facility] Oct 30, 2024 01:00 PM AMBULATORY - MEDICINE [place] Dec 26, 2024 01:30 PM AMBULATORY - MEDICINE [place] [place] [facility] Dec 26, 2024 02:30 PM AMBULATORY - MEDICINE [place] [place] [facility] Social History: Smoking Status (Most current) [...] 22, 2024 12:43 PM VA-TOBACCO NEVER USED [facility] Tobacco Use History This section includes a history of the smoking, or tobacco-related health factors, that were collected on or before the date of the Encounter. The data comes from the [place] facility where the Encounter took place. Date/Time Smoking Status/Tobacco Use Comment F acility Mar 26, 2021 02:25 PM VA-TOBACCO NEVER USED [facility] Advance Directives: All historical and current Section [...] Nov 04, 2016 ADVANCE DIRECTIVE SEBASRONY [facility] Encounter Notes: All associated encounter notes This section contains the clinical notes associated to the Encounter. Date/Time Encounter Note(s) Provider Source Jul 16, 2024 03:16 PM PRIMARY CARE SECUR E MESSAGING: LOCAL TITLE: PRIMARY CARE SECURE MESSAGING STANDARD TITLE: PRIMARY CARE SECURE MESSAGING DATE OF NOTE: JUL 16, 2024@15:16 ENTRY DATE: JUL 16, 2024@15:16:35 AUTHOR: ТАТЬЯНА PEPPER EXP COSIGNER: URGENCY: STATUS: COMPLETED ------Original Message ------- Sent: 07/16/2024 03:16 PM ET From: ТАТЬЯНА PEPPER To: DUYEN KAM RAMON Subject: General:BACK PAIN Mr. Geller, Xstampza is a form of oxycodone. You have been following with [facility] for your chronic pain syndrome. YENY Mcclendon, recommends you consult with the providers at that clinic regarding xstampza. Thank you for your service. LUCIA SHERIDAN REGISTERED NURSE /jose cruz/ ТАТЬЯНА PEPPER ADVANCE TRAFFIC CONTROL OPERATOR Signed: 07/16/2024 15:16 ТАТЬЯНА PEPPER CNTRL WSTRN [facility]
--- OUTSIDE RECORDS SUMMARY | 2024-07-26 17:04 | XMS_ITS | Encounter Summary ---
Author Name [place] Address [address] [place] [address] Care Team Providers Care Drum Filler Name Role Phone WAYNE WHEATLEY Primary Care [...] Name Patient's Relationship to Policy [facility]) MEDICARE ADVANTAGE [facility] ([facility]) Aug 25, 2001 [facility] ([facility]) [id number] ADRIANA GELLER PATIENT MEDICARE ([facility]) MEDICARE (M) PART A Oct 23, 2016 PART A [id number] QUE GELLER PATIENT MEDICARE (WN) MEDICARE (M) PART B Oct 23, 2016 PART B [id number] QUE GELLER PATIENT MEDICARE (WNR) MEDICARE (M) PART B Jul 25, 2011 PART B [id number] [phone] QUE GELLER PATIENT MEDICARE (WN) MEDICARE (M) PART B Jul 25, 2011 PART B [id number] QUE GELLER PATIENT MEDICARE (WNR) MEDICARE (M) PART B Jul 25, 2011 PART B [id number] QUE GELLER PATIENT MEDICARE (WNR) MEDICARE (M) PART A Apr 24, 2004 PART A [id number] [phone] QUE GELLER PATIENT MEDICARE (WNR) MEDICARE (M) PART A Apr 24, 2004 PART A [id number] QUE GELLER PATIENT MEDICARE (WNR) MEDICARE (M) PART A Apr 24, 2004 PART A [id number] QUE GELLER PATIENT Selected Encounter This section includes the information on record at [place] for the Encounter. Date/Time Encounter Type Encounter Description Reason Pro vider Source Jun 19, 2024 09:48 AM Outpatient Encounter ADMIN PAT ACTIVTIES (MASNONCT) IHE Encounter Template Text not used by [place] Plan of Treatment: Future Appointments (+ 6 months) and Future Tests (+/- 45 days) The Plan of Treatment section includes future care activities for the patient [facility] [place] [facility] This section includes future appointments and [...] - MEDICINE [place] [facility] Jun 26, 2024 03:00 PM AMBULATORY - MEDICINE [place] [facility] Jun 26, 2024 03:15 PM AMBULATORY - MEDICINE [place] [facility] Jul 03, 2024 04:00 PM AMBULATORY - MEDICINE [facility] Sep 04, 2024 04:00 PM AMBULATORY - MEDICINE [facility] Sep 11, 2024 01:00 PM AMBULATORY - MEDICINE [place] Oct 24, 2024 04:00 PM AMBULATORY - NONE [place] [place] [facility] Oct 30, 2024 01:00 PM AMBULATORY - [...] ADVANCE DIRECTIVE RONY URRUTIA [place] CNTR L EDERTRZeina [facility] Encounter Notes: All associated encounter notes This section contains the clinical notes associated to the Encounter. Date/Time Encounter Note(s) Provider Source Jun 19, 2024 09:48 AM ADMINISTRATIVE NOT E: LOCAL TITLE: ADMINISTRATIVE NOTE STANDARD TITLE: ADMINISTRATIVE NOTE DATE OF NOTE: JUN 19, 2024@09:48 ENTRY DATE: JUN 19, 2024@09:48:37 AUTHOR: JEFFERY ROSARIO EXP COSIGNER: URGENCY: STATUS: COMPLETED AMSA spoke w/. Odell agreed w/offered scheduled day, date, Modality, & time of appt on 07/03/2024 @ 16:00 w/ERIC GI FELLOW 2. /jose cruz/ JEFFERY ROSARIO DIRECTOR RECREATION CENTER Signed: 06/19/2024 09:49 JEFFERY ROSARIO [facility]
--- OUTSIDE RECORDS SUMMARY | 2024-07-26 17:04 | XMS_ITS | Encounter Summary ---
Author Name Department [place] Address [address] [place] [address] Care Team Providers Care Automotive Alignment Specialist Name Role Phone WAYNE WHEATLEY Primary [facility] Insurance Providers: All historical and [...] [facility]) MEDICARE ADVANTAGE [facility] ([facility]) Aug 25, 2001 [facility] ([facility]) [id number] TIERNEYADRIANA RUSSO JOHN PATIENT MEDICARE ([facility]) MEDICARE (M) PART A Oct 23, 2016 PART A [id number] [phone] QUE GELLER PATIENT MEDICARE (WN) MEDICARE (M) PART B Oct 23, 2016 PART B [id number] [id number] [phone] QUE GELLER PATIENT MEDICARE (WNR) MEDICARE (M) PART B Jul 25, 2011 PART B [id number] QUE GELLER PATIENT MEDICARE (WNR) MEDICARE (M) PART B Jul 25, 2011 PART B [id number] QUE GELLER PATIENT MEDICARE (WNR) MEDICARE (M) PART B Jul 25, 2011 PART B [id number] [phone] QUE GELLER PATIENT MEDICARE (WNR) MEDICARE (M) PART A Apr 24, 2004 PART A [id number] 97A QUE GELLER PATIENT MEDICARE (WNR) MEDICARE (M) PART A Apr 24, 2004 PART A [id number] QUE GELLER PATIENT MEDICARE (WNR) MEDICARE (M) PART A Apr 24, 2004 PART A [id number] QUE GELLER PATIENT Selected Encounter This section includes the information on record at [place] for the Encounter. Date/Time Encounter Type Encounter Description Reason Pro vider Source IHE Encounter Template Text not used by [place] Advance Directives: All historical and current Section [...] ADVANCE DIRECTIVE RONY URRUTIA [place] CNTR L EDERTRZeina MARTINEZ [facility]
--- OUTSIDE RECORDS SUMMARY | 2024-07-26 17:04 | XMS_ITS | Encounter Summary ---
Author Name [facility] [place] [facility] [place] Address [address] [place] [address] Care Team Providers Care Fisher Clam Name Role Phone WAYNE WHEATLEY Primary Care [...] Name Patient's Relationship to Policy [facility]) MEDICARE ADVANTAGE [facility] ([facility]) Aug 25, 2001 [facility] ([facility]) [id number] ADRIANA GELLER PATIENT MEDICARE ([facility]) MEDICARE (M) PART A Oct 23, 2016 PART A [id number] QUE GELLER PATIENT MEDICARE (WN) MEDICARE (M) PART B Oct 23, 2016 PART B [id number] QUE GELLER PATIENT MEDICARE (WNR) MEDICARE (M) PART B Jul 25, 2011 PART B [id number] QUE GELLER PATIENT MEDICARE (WN) MEDICARE (M) PART B Jul 25, 2011 PART B [id number] QUE GELLER PATIENT MEDICARE (WNR) MEDICARE (M) PART B Jul 25, 2011 PART B [id number] QUE GELLER PATIENT MEDICARE (WNR) MEDICARE (M) PART A Apr 24, 2004 PART A [id number] [phone] QUE GELLER PATIENT MEDICARE (WNR) MEDICARE (M) PART A Apr 24, 2004 PART A [id number] QEU GELLER PATIENT MEDICARE (WNR) MEDICARE (M) PART A Apr 24, 2004 PART A [id number] QUE GELLER PATIENT Selected Encounter This section includes the information on record at [place] for the Encounter. Date/Time Encounter Type Encounter Description Reason Pro vider Source Jun 07, 2024 10:06 AM Outpatient Encounter ADMIN PAT ACTIVTIES (MASNONCT) IHE Encounter Template Text not used by [place] Plan of Treatment: Future Appointments (+ 6 months) and Future Tests (+/- 45 days) The Plan of Treatment section includes future care activities for the [facility] [place] [facility] This section includes future appointments and [...] - MEDICINE [place] [facility] [place] [facility] Jun 26, 2024 03:00 PM AMBULATORY - [place]ICINE [place] [facility] [place] [place] [facility] Jun 26, 2024 03:15 PM AMBULATORY - MEDICINE [place] [facility] [place] [facility] Jul 03, 2024 04:00 PM AMBULATORY - [facility]ICINE [place] [facility] Sep 04, 2024 04:00 PM AMBULATORY - [facility]ICINE [place] [facility] Sep 11, 2024 01:00 PM AMBULATORY - MEDICINE [place] Oct 24, 2024 04:00 PM AMBULATORY - NONE [place] [facility] [place] [facility] Oct 30, 2024 01:00 PM AMBULATORY - [...] Nov 04, 2016 ADVANCE DIRECTIVE SEBASRONY COLLINS [place] [facility]SON[facility]MEDI[facility] Encounter Notes: All associated encounter notes This section contains the clinical notes associated to the Encounter. Date/Time Encounter Note(s) Provider Source Jun 07, 2024 10:06 AM LETTERS: LOCAL TITLE: PATIENT LETTER STANDARD TITLE: LETTERS DATE OF NOTE: JUN 07, 2024@10:06 ENTRY DATE: JUN 07, 2024@10:06:32 AUTHOR: VINAYAK DAMON EXP COSIGNER: URGENCY: STATUS: COMPLETED DEPARTMENT OF [address] [address] Patient Call Center: JUN 07, 2024 EL GELLER [address] [facility] [id number] Dear El Geller, This is a reminder of the following Clinic Appointment(s): This Clinic is located on the 6th floor, 6B[address]72. Date/Time: Wednesday June 19, 2024 3:30 p.m. [place] Clinic: [facility] Location: [address] Provider: Dr. True Ayala MD Please remember this clinic is located at the [facility], on [address]B room [address] In preparation for your in-person visit, please make sure to follow these guidelines: *Masks are required if you have a cold/flu, had COVID in last 10 days, or if indicated by signs *Feel free to mask if you prefer If you are unable to keep this appointment, please contact us at the following number and we will schedule a new appointment for you. Please bring this appointment letter with you, a photo ID (such as your ID Card or a hazmat truck driver's license) and your insurance information. If you have questions, please use Secure Messaging in [employer] or call the Patient Call Center at . Help is available at this number 24 hours a day, 7 days a week. Sincerely, Gastroenterology/Hepatology VINAYAK DAMON [facility]
--- OUTSIDE RECORDS SUMMARY | 2024-07-26 17:04 | XMS_ITS | Encounter Summary ---
Author Name [facility] [place] [facility] [place] Address [address] [place] [address] Care Team Providers Care Supervisor Finish End Name Role Phone WAYNE WHEATLEY Primary Care [...] Name Patient's Relationship to Policy [facility]) MEDICARE ADVANTAGE [facility] ([facility]) Aug 25, 2001 [facility] ([facility]) [id number] TIERNEYADRIANA RUSSO PATIENT MEDICARE ([facility]) MEDICARE (M) PART A Oct 23, 2016 PART A [id number] QUE GELLER PATIENT MEDICARE ([facility]) MEDICARE (M) PART B Oct 23, 2016 PART B [id number] QUE GELLER PATIENT MEDICARE (WN) MEDICARE (M) PART B Jul 25, 2011 PART B [id number] 97A QUE GELLER PATIENT MEDICARE ([facility]) MEDICARE (M) PART B Jul 25, 2011 PART B [id number] 97A QUE GELLER PATIENT MEDICARE (WNR) MEDICARE (M) PART B Jul 25, 2011 PART B [id number] QUE GELLER PATIENT MEDICARE (WNR) MEDICARE (M) PART A Apr 24, 2004 PART A [id number] 97A QUE GELLER PATIENT MEDICARE (WNR) MEDICARE (M) PART A Apr 24, 2004 PART A [id number] 97A QUE GELLER PATIENT MEDICARE (WNR) MEDICARE (M) PART A Apr 24, 2004 PART A [id number] QUE GELLER PATIENT Selected Encounter This section includes the information on record at [place] for the Encounter. Date/Time Encounter Type Encounter Description Reason Pro vider Source Jul 03, 2024 04:00 PM OFF/OP CNSLTJ NEW/EST MOD 40 GASTROENTEROLOGY ICD-10-CM R10.30 Lower abdominal pain, unspecified JAYJAY NGUYEN MD [facility] Encounter Template Text not used by [place] Assessments - Encounter Diagnoses This section includes the primary and secondary diagnoses documented for the Encounter. Date/Time Primary/Secondary Diagnosis Diagnosis Name Provider Source Jul 03, 2024 05:39 PM PRIMARY Lower abdominal pain, unspecified JESSICA CARPENTER [facility] Jul 03, 2024 05:39 PM SECONDARY Gastro-esophageal reflux disease without esophagitis JESSICA CARPENTER [facility] Jul 03, 2024 05:39 PM SECONDARY Irritable bowel syndrome with constipation JESSICA CARPENTER [facility] Plan of Treatment: Future Appointments (+ 6 months) and Future Tests (+/- 45 days) The Plan of Treatment section includes future care activities for the patient from all [place] treatmentfacilities. This section includes future appointments and [...] 04:00 PM AMBULATORY - MEDICINE [place] [facility] Sep 11, 2024 01:00 PM AMBULATORY - MEDICINE [place] Oct 24, 2024 04:00 PM AMBULATORY - NONE [place] [facility] [place] [facility] Oct 30, 2024 01:00 PM AMBULATORY - MEDICINE [place] Dec 26, 2024 01:30 PM AMBULATORY - MEDICINE [place] [facility] [facility] Dec 26, 2024 02:30 PM AMBULATORY - MEDICINE [place] [facility] [place] [facility] Advance Directives: All historical and current Section Date Range: From patient's date of to the date document was created. This section includes ALL of a patient's completed or amended [place] Advance and Rescinded Directives. The entries below indicate that a directive exists for the patient, but an actual copy is not included with this document. The data comes from all [place] facilities. Date Advance Directives Provider Source Nov 04, 2016 ADVANCE DIRECTIVE RONY URRUTIA [place] [facility] [place] [facility] Encounter Notes: All associated encounter notes This section contains the clinical notes associated to the Encounter. Date/Time Encounter Note(s) Provider Source Jul 03, 2024 03:04 PM GASTROENTEROLOGY C ONSULT: LOCAL TITLE: CONSULT /GASTROENTEROLOGY STANDARD TITLE: GASTROENTEROLOGY CONSULT DATE OF NOTE: JUL 03, 2024@15:04 ENTRY DATE: JUL 03, 2024@15:04:54 AUTHOR: JESSICA CARPENTER COSIGNER: JAYJAY NGUYEN MD URGENCY: STATUS: COMPLETED Gastroenterology/Hepatology Clinic Note VISIT TYPE: New Consult: F2F Reason for visit: Abdominal pain SUBJECTIVE/HPI: - The reports that he first started having GI issues a few years ago when he was taking opoioid analgesia for chronic back pain - He was diagnosed with gastroparesis, stopped opioids, and symptoms resolved in [id number] - He was doing well since then until a few months ago when he started having abdominal pain. It started out as burning epigstric pain and retrosturnal burning/heartburn after eating but he started pantoprazole 40 mg po BID and this went away - Now he is having daily lower abdominal bloating/cramping sensation that doesn't get better or worse after eating or bowel movements - He describes his bowel movements as once daily but are typically hard and difficult to pass - Has occasional nausea but no vomiting - Previously followed [facility] - Prior work-up includes - EGD/[place] 01/18/24 normal - 02/09/24 GES normal - Currently taking prochlorperazine 10mg PRN nausea and dicyclomine 20 mg BID - Denies blood in stool, fever/chills, unintentional weight loss PAST MEDICAL & SURGICAL HISTORY: No Active Problems on record SOCIAL HISTORY: Tobacco: Never. EtOH: None Drugs: Occasional marijuana. No other drugs. FAMILY HISTORY: - No family history of Celiac Disease or IBD - Half brother with colon cancer in his 70s - No other family history of colon, esophagus or stomach cancer Active Medications: Active Outpatient Medications (including Supplies): No Medications Found Drug Allergies and Reactions: No Allergy Assessment OBJECTIVE Vitals: Temperature: 96.9 F [36.1 C] (09/21/2005 09:29) Pulse: 93 (09/21/2005 09:29) Blood Pressure: 149/88 (09/21/2005 09:29) Pulse Ox: 96% (09/21/2005 09:29) Weight: Height: Physical Exam: General: well appearing, NAD Eyes: No icterus Heart: non tachycardic Lungs: non labored Abdomen: No distention, soft, mild tenderness to deep palpation in lower abdomen but no epigastric tenderness Legs: No edema Laboratory Data: TTG IGA normal @ [facility] Imagin02/09/24 GES 1h: 45% 2h: 59% 4h: 98% Normal gastric emptying Procedures: 01/18/24 EGD/[place] Normal esophagus. Fundic gland polyp. Normal stomach biopsies, no H Pylori Normal duodenal biopsies Normal colon Fair prep, no polyps, normal random colon biopsies. ASSESSMENT/PLAN: DOMKAM SALINAS is a 73 MALE with a history of chronic back pain, prior opioid-induced delayed gastric emptying, GERD, now here for evaluation of abdominal pain. #Lower abdominal pain - Associated with constipation so suspect IBS-C with associated bloating vs functional bloating with abdominal pain. Extensive negative work-up thus far, so will initiate treatment with fiber and neuromodulator as below. Stop dicyclomine given this is likely worsening constipation. #GERD - symptoms well controlled on current regimen #Colon polyps - Reported history of adenomatous polyps. Last colo 12/2023 w/ fair prep but no polyps. - Start nortriptyline 10 mg po qhs, uptitrate as tolerated - Start psyllium 1 tbsp daily - Uptitrate to laxatives if no effect - Continue prochlorperazine PRN - Stop dicyclomine - Repeat colonoscopy in 1 year (December 2024) for surveillance given fair prep Return to Clinic: 2 months ([facility]) Patient Education: The assessment and plan were discussed with the patient who verbalized their understanding. REVIEW BY ATTENDING STAFF PHYSICIAN: I have discussed my assessment and recommendations with Dr. Jayjay Nguyen who agrees with the assessment and plan as outlined above. Time attestation: I spent a total of 62 minutes to complete this F2F visit by reviewing pertinent medical documentation, obtaining history, ordering medications, tests and procedures, referring and communicating with other health care providers, documenting findings in the electronic health records, counseling and educating patient along with family and caregiver about their disease and diagnosis, discussing diagnostic evaluation, work up, planned therapeutic interventions and future disposition of care. /jose cruz/ JESSICA CARPENTER Gastroenterology Fellow Signed: 07/03/2024 17:39 /jose cruz/ JAYJAY NGUYEN MD Chief, Gastroenterology Cosigned: 07/04/2024 15:28 JESSICA CARPENTER [facility]
== END 2024-07-26 16:02 | disposition home or self-care (01) ==
PROVIDERS: PCP Registered Nurse; Visit Provider Anesthesiology
DX: G89.4 Chronic pain syndrome (principal); M50.30 Other cervical disc degeneration, unspecified cervical region; M47.16 Other spondylosis with myelopathy, lumbar region; M47.812 Spondylosis without myelopathy or radiculopathy, cervical region; Z45.1 Encounter for adjustment and management of infusion pump; M47.816 Spondylosis without myelopathy or radiculopathy, lumbar region
CPT/HCPCS: 95991; 99213

== ENCOUNTER → 2024-07-26 15:29 | Outpatient (BNVA) | payer OTHER, SELFPAY | PROVIDERS: PCP Registered Nurse; Visit Provider Anesthesiology | DX: Z45.89 Encounter for adjustment and management of other implanted devices (principal); M43.10 Spondylolisthesis, site unspecified; M51.360 Other intervertebral disc degeneration, lumbar region with discogenic back pain only; M50.30 Other cervical disc degeneration, unspecified cervical region; M47.16 Other spondylosis with myelopathy, lumbar region; M47.812 Spondylosis without myelopathy or radiculopathy, cervical region; M47.816 Spondylosis without myelopathy or radiculopathy, lumbar region; G89.4 Chronic pain syndrome | CPT/HCPCS: 99212 ==

== ENCOUNTER 2024-08-01 14:13 | Outpatient (AMB) | payer OTHER, SELFPAY ==
--- OUTSIDE RECORDS SUMMARY | 2024-08-01 14:16 | XMS_ITS | Continuity of Care Document ---
Author Name [facility] Organization [facility] Care Team Providers Care Housing Property Manager Name Role Phone [facility] Unavailable Unavailable Problems Combined list of problems [...] R Knee (eventually need TKR, R Side?) [facility] Anemia Active Condition [facility] Back pain (SNOMED CT 048940715) Active Condition Aug 11, 2006 Entered By: RAMON OLSON Comment: OA, L-Spine; not surg candidateJan 2006 Entered By: RAMON OLSON Comment: greater preponderance of OA (versus Discopathy) in L-SpineJan 2006 Entered By: RAMON OLSON Comment: never had a FxJan 2007 Entered By: RAMON OLSON Comment: has already seen [facility] beta thalassemia (SNOMED CT 65547866) Active Condition November 29, 2006 Entered By: JENIFER BAXTER Comment: f/u pcp [facility] Callus Active Condition [facility] Chronic pain Active Condition Sep 26, 2020 Entered By: RODO MEZA Comment: x-ray 10/12 mild deg changes left shoulderOct 20, 2021 Entered By: RODO MEZA Comment: 10/13 b/l subacromial CSI inj [facility] Depression (SNOMED CT 59007188) Active Condition [facility] ECG: normal sinus rhythm Active Condition Feb 18, 2017 Entered By: ORDO MEZA Comment: hypertensive heart disease per echo [...] [facility] Exposure to potentially hazardous substance ([facility] [id number]) Active Condition Mar 23 Entered By: VENUS GONZALEZ Comment: Entered automatically through JONO Problem List documentation program [facility] Gastroparesis Active Condition [facility] H/O: surgery Active Condition Jul 31, 2020 Entered By: RODO MEZA Comment: Laparoscoplc Cholecystectomy and an Umbilical Hernia Repair on 07/16/[address] Celis. [facility] Heartburn (SNOMED CT 80390342) Active Condition Aug 08, 2007 Entered By: [...] OLSON Comment: THR, L Side SEPT 14 [facility] Hyperlipidemia (SNOMED CT 21654866) Active Condition [facility] Hypothyroidism (SNOMED CT 09959475) Active Condition [facility] Obesity Active Condition [facility] [place] [facility] Screening for Malignant Neoplasms of colon Active Condition Sep 03, 2008 Entered By: RAMON OLSON Comment: Colonoscopy 2005: Neg CRC; Repeat 2015 ([place])Jan 07, 2015 Entered By: RAMON OLSON Comment: pending [facility] [place] 2014 [place] Traumatic pneumothorax Active Condition [facility] Closed fracture multiple ribs Inactive Condition 10/05/2023 [facility] Closed fracture of base of first metacarpal Inactive Condition 10/05/2023 [facility] Closed fracture of head of left radius Inactive Condition 10/05/2023 [facility] [place] [facility] Diagnosis: ICD-10-CM R10.30 Lower abdominal pain, unspecified Active Diagnosis [facility] Diagnosis: ICD-10-CM Z46.0 Encounter for fit/adjst of spectacles and contact lenses [facility] [place] [facility] Diagnosis: ICD-10-CM 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, bilateral, intermed dry stage Active [facility] [place] [facility] Diagnosis: ICD-10-CM H40.013 Open angle with borderline findings, low risk, bilateral Active [facility] [place] [facility] Diagnosis: ICD-10-CM K03.6 Deposits [accretions] on teeth Active Diagnosis [facility] [place] [facility] Diagnosis: ICD-10-CM L60.3 Nail dystrophy [facility] Diagnosis: ICD-10-CM D64.9 Anemia, unspecified Active Diagnosis [facility] Diagnosis: ICD-10-CM M54.50 Low back pain, unspecified Active Diagnosis [facility] [place] [facility] Diagnosis: ICD-10-CM R11.2 Nausea with vomiting, unspecified Active Diagnosis [facility] Diagnosis: ICD-10-CM K08.9 Disorder of teeth and supporting structures, unspecified [facility] [place] [facility] Diagnosis: ICD-10-CM S27.0XXD Traumatic pneumothorax, subsequent encounter Active Diagnosis [facility] Medications Combined list of outpatient medications from [...] PRIOR TO DENTAL APPOINTM ENTS ORAL 05/06/2024 [id number] FRED SCHAFER 2022 4 [place] BISACODYL 5MG TAB,EC TAKE FOUR TABLETS BY MOUTH ONCE FOR BOWELS - LAXATIVE ORAL 02/12/2024 [id number] Pietro GIORDANO P JR 2023 4 [place] CHOLECALCIF ODALIS 25MCG (1,000UNIT) TAB TAKE ONE TABLET BY MOUTH ONCE DAILY FOR VITAMIN SUPPLEME NTATION ORAL ACTIVE 11/16/2024 [id number] 4 Joao WHEATLEY 2023 90 [place] CHOLESTYRAM INE 4GM/9GM PWDR,PKT TAKE 1 PACKET BY MOUTH ONCE DAILY ORAL ACTIVE 11/11/2024 [id number] 4 Viviana GATES MY R 2023 60 [facility] CYANOCOBALA MIN 1000MCG TAB TAKE ONE TABLET BY MOUTH ONCE DAILY FOR VITAMIN SUPPLEME NTATION ORAL ACTIVE 10/20/2024 [id number] EDISON BAIN 2023 90 [facility] CYANOCOBALA MIN 1000MCG TAB TAKE ONE TABLET BY MOUTH ONCE DAILY FOR VITAMIN SUPPLEME NTATION ORAL DISCONT INUED 09/29/2023 [id number] EDISON BAIN 2022 90 [facility] CYCLOBENZAP RINE HCL 5MG TAB TAKE 1-2 TABLETS BY MOUTH THREE TIMES DAILY NEEDED ORAL 10/21/2023 [id number] KASSANDRA SUMMERS 2022 84 [place] DICYCLOMINE HCL 20MG TAB TAKE ONE TABLET BY MOUTH TWICE DAILY NEEDED (FOR IRRITABL E BOWEL SYNDROME ) ORAL DISCONT INUED BY PROVIDE R 07/22/2024 [id number] 4 Joao WHEATLEYD A 2023 40 [place] DICYCLOMINE HCL 20MG TAB TAKE ONE TABLET BY MOUTH TWICE DAILY NEEDED (FOR IRRITABL E BOWEL SYNDROME ) ORAL DISCONT INUED 06/29/2024 [id number] Joao WHEATLEY AVID A 2023 40 [place] DOCUSATE NA 50MG/SENNOS IDES 8.6MG TAB TAKE 1 TABLET BY MOUTH TWICE DAILY FOR CONSTIPA TION ORAL ACTIVE 05/29/2025 [id number] 4 Joao WHEATLEY AVID A 2023 200 [place] FERROUS SO4 325MG TAB TAKE ONE TABLET BY MOUTH ONCE DAILY TO SUPPLEME NT IRON ORAL ACTIVE 05/29/2025 [id number] 4 Joao WHEATLEYD A 2023 100 [place] FERROUS SO4 325MG TAB TAKE ONE TABLET BY MOUTH ONCE DAILY TO SUPPLEME NT IRON ORAL DISCONT INUED 04/15/2025 [id number] 4 RA DARIAN BOGGS 2023 100 [facility] FERROUS SO4 325MG TAB TAKE ONE TABLET BY MOUTH ONCE DAILY TO SUPPLEME NT IRON ORAL DISCONT INUED 07/22/2024 [id number] 4 KELVIN BYRD 2023 100 [place] LEVOTHYROXI NE NA 125MCG TAB (SYNTHROID) TAKE ONE TABLET BY MOUTH EVERY MORNING 30 MINUTES BEFORE BREAKFAS T FOR THYROID TAKE ON AN EMPTY STOMACH WITH A FULL GLASS OF WATER ORAL ACTIVE 05/29/2025 [id number] 4 Joao WHEATLEYD A 2023 90 [place] LEVOTHYROXI NE NA 125MCG TAB (SYNTHROID) TAKE ONE TABLET BY MOUTH EVERY MORNING 30 MINUTES BEFORE BREAKFAS T FOR THYROID TAKE ON AN EMPTY STOMACH WITH A FULL GLASS OF WATER ORAL DISCONT INUED 08/22/2024 [id number] 4 KELVIN BYRD 2023 90 [place] LIDOCAINE 5% OINT,TOP APPLY SMALL AMOUNT TOPICALL Y ONCE DAILY NEEDED FOR ITCHING TOPICA L ACTIVE 05/29/2025 [id number] 4 Joao WHEATLEY A 2023 70 [place] LIDOCAINE 5% OINT,TOP APPLY SMALL AMOUNT TOPICALL Y ONCE DAILY NEEDED FOR ITCHING TOPICA L DISCONT INUED 01/31/2025 [id number] Joao WHEATLEY A 2023 70 [facility] IELD LORAZEPAM 0.5MG TAB TAKE ONE TABLET BY MOUTH ONCE DAILY NEEDED ORAL [place] 2021 [facility] IELD MAGNESIUM OXIDE 420MG TAB TAKE ONE TABLET BY MOUTH ONCE DAILY ORAL ACTIVE 11/09/2024 [id number] EDISON BAIN 2023 90 [facility] MARIJUANA MISCELLANEO US USE DIRECTED NOT APPLIC ABLE [place] 2020 [facility] IELD MULTIVIT/OP HTH AREDS2/LUTE IN/ZEAXANTH IN CAP/TAB TAKE 1 CAPSULE BY MOUTH TWICE DAILY IN THE MORNING AND EVENING, WITH FOOD ORAL ACTIVE 05/09/2025 [id number] LISA CADENA 2023 120 [facility] MULTIVIT/OP HTH AREDS2/LUTE IN/ZEAXANTH IN CAP/TAB TAKE 1 CAPSULE BY MOUTH TWICE DAILY IN THE MORNING AND EVENING, WITH FOOD ORAL DISCONT INUED BY PB R 08/22/2024 [id number] 4 KELVIN BYRD 2023 120 [place] MULTIVIT/OP HTH AREDS2/LUTE IN/ZEAXANTH IN CAP/TAB TAKE 1 CAPSULE BY MOUTH TWICE DAILY IN THE MORNING AND EVENING, WITH FOOD ORAL DISCONT INUED 06/15/2023 [id number] FRED SCHAFER 2021 120 [place] NORTRIPTYLI NE HCL 10MG CAP TAKE ONE CAPSULE BY MOUTH AT BEDTIME FOR ABDOMINA L PAIN ORAL ACTIVE 07/04/2025 [id number] 4 JAYDENSTANISLAV 2023 90 [facility] NORTRIPTYLI NE HCL 10MG CAP TAKE 1 CAPSULE BY MOUTH AT BEDTIME ORAL ACTIVE Joao WHEATLEYD A 2023 [facility] IELD OMEPRAZOLE 20MG CAP,EC TAKE ONE CAPSULE BY MOUTH TWICE DAILY NEEDED FOR GASTROES OPHAGEAL REFLUX DISEASE ORAL 02/25/2024 [id number] GILMAR,FRED DAWNA S 2022 180 [place] PANTOPRAZOL E NA 40MG TAB,EC TAKE ONE TABLET BY MOUTH EVERY MORNING 30 MINUTES BEFORE BREAKFAS T FOR EXCESSIV E PRODUCTI ON OF STOMACH ACID ORAL SUSPEND ED 05/31/2025 [id number] Joao WHEATLEY A 2023 90 [facility] IELD PANTOPRAZOL E NA 40MG TAB,EC TAKE ONE TABLET BY MOUTH ONCE DAILY ORAL DISCONT INUED (EDIT) 05/29/2025 [id number] 4 Joao WHEATLEY A 2023 30 [place] PANTOPRAZOL E NA 40MG TAB,EC TAKE ONE TABLET BY MOUTH ONCE DAILY ORAL DISCONT INUED 04/12/2025 [id number] 4 CANDELARIO HICKMAN 2023 30 [facility] PANTOPRAZOL E NA 40MG TAB,EC TAKE ONE TABLET BY MOUTH TWICE DAILY ORAL DISCONT INUED 12/30/2024 [id number] 4 Viviana GATES 2023 60 [facility] PAROXETINE HCL 40MG TAB TAKE ONE TABLET BY MOUTH DAILY ORAL ACTIVE 01/31/2025 [id number] 5 Joao WHEATLEYD A 2023 90 [place] PAROXETINE HCL 40MG TAB TAKE ONE TABLET BY MOUTH DAILY ORAL DISCONT INUED 01/01/2024 [id number] FRED SCHAFER S 2022 90 [place] POLYETHYLEN E GLYCOL 3350 PWDR,ORAL TAKE CONTENTS OF BOTTLE BY MOUTH ONCE DIRECTED BY PROVIDER - DISSOLVE CONTENTS BEFORE DRINKING ORAL 02/12/2024 [id number] Pietro GIORDANO P JR 2023 476 [facility] PREGABALIN 150MG CAP,ORAL TAKE ONE CAPSULE BY MOUTH THREE TIMES A DAY FOR NERVE PAIN DO NOT TAKE WITH GABAPENT IN DOSE INCREASE ORAL 09/07/2023 [id number] FRED SCHAFER 2022 90 [facility] IELD PROBIOTIC (CULTURELLE DIGESTIVE DAILY) CAP/TAB TAKE BY MOUTH ONCE DAILY ORAL ACTIVE SHELDON BANEGAS 2020 [facility] IELD PROCHLORPER AZINE MALEATE 10MG TAB TAKE ONE TABLET BY MOUTH TWICE A DAY NEEDED FOR NAUSEA AND VOMITING ORAL ACTIVE 08/02/2024 [id number] 4 KONBRITT,PET ER G 2023 60 [facility] PROCHLORPER AZINE MALEATE 10MG TAB TAKE ONE TABLET BY MOUTH TWICE DAILY NEEDED FOR NAUSEA AND VOMITING ORAL DISCONT INUED 06/29/2024 [id number] Joao WHEATLEYD A 2023 60 [facility] IELD PROCHLORPER AZINE MALEATE 10MG TAB TAKE ONE TABLET BY MOUTH TWICE DAILY NEEDED FOR NAUSEA AND VOMITING ORAL 07/22/2024 [id number] 4 Joao WHEATLEY AVID A 2023 60 [facility] IELD PSYLLIUM PWDR,ORAL TAKE 2 TEASPOON FULS BY MOUTH ONCE DAILY FOR CONSTIPA TION (MIX WITH AT LEAST 8OZ. OF WATER OR OTHER FLUID) ORAL ACTIVE 07/12/2025 [id number] 4 Joao WHEATLEY AVID A 2023 780 [facility] IELD PSYLLIUM PWDR,ORAL MIX AND DRINK 3.4GM(1 TEASPOON FUL) BY MOUTH EVERY DAY FOR IRRITABL E COLON (DISSOLV E IN 8OZ WATER/JU ICE BEFORE DRINKING ) ORAL ACTIVE 07/04/2025 [id number] 4 KONYN,PET ER G 2023 390 [facility] SIMVASTATIN 40MG TAB TAKE ONE-HALF TABLET BY MOUTH AT BEDTIME FOR CHOLESTE ROL ORAL ACTIVE 05/29/2025 [id number] 4 Joao WHEATLEY 2023 45 [place] SIMVASTATIN 40MG TAB TAKE ONE-HALF TABLET BY MOUTH AT BEDTIME FOR CHOLESTE ROL ORAL DISCONT INUED 08/22/2024 [id number] 4 BYRDKELVIN SAMM [place] 2023 45 [place] SODIUM FLUORIDE 1.1% TOOTHPASTE BRUSH SMALL AMOUNT TO TEETH TWICE DAILY FOR TOOTH DECAY PREVENTI ON DENTAL 07/08/2024 [id number] KADEN ALONSO 2022 51 [facility] SUCRALFATE 1GM TAB TAKE ONE TABLET BY MOUTH TWICE DAILY ON AN EMPTY STOMACH. TAKE UPON AWAKENIN G AND BEFORE BED ORAL ACTIVE 05/29/2025 [id number] 4 Joao WHEATLEY 2023 60 [place] SUCRALFATE 1GM TAB TAKE ONE TABLET BY MOUTH TWICE DAILY ON AN EMPTY STOMACH. TAKE UPON AWAKENIN G AND BEFORE BED ORAL DISCONT INUED 01/20/2025 [id number] 4 CANDELARIO HICKMAN 2023 60 [place] Allergies, Adverse Reactions, Alerts Combined list of allergies from Department of Defense and Veterans Affairs facilities. It does not include entries that were removed or entered in error. Substance Category Reaction Severity Reaction type Status Date Reported Comments Source ERYTHROMYCIN Propensity to adverse reactions to drug (finding) active 2 [facility] FLOMAX Propensity to adverse reactions to drug (finding) Nausea active 9 [facility] GABAPENTIN Propensity to adverse reactions to drug (finding) Fatigue MILD active 4 [facility] NEURONTIN Propensity to adverse reactions to drug (finding) Fatigue active 7 [facility] TAMSULOSIN Propensity to adverse reactions to drug (finding) Nausea MILD active 4 [facility] Immunizations Combined list of available immunizations from the Department of Defense and Veterans Affairs facilities. Immunization Series Date Given Administered By Site Reaction Lot Number CVX Code Drug Cna Per Diem Status Comments Source COVID-19 (MODERNA), MRNA, LNP-S, PF, 100 MCG OR 50 MCG DOSE 3 2020 207 complet ed MOD; [id number]; 2 [place] INFLUENZA VACCINE, QUADRIVALENT, ADJUVANTED 2020 205 complet ed [place] COVID-19 (MODERNA), MRNA, LNP-S, PF, 100 MCG/0.5 ML DOSE 2 2020 207 complet ed MOD; [id number]; 1 [place] COVID-19 (MODERNA), MRNA, LNP-S, PF, 100 MCG/0.5 ML DOSE 1 2020 207 complet ed MOD; [id number]; 1 [place] ZOSTER RECOMBINANT 2 2019 [...] got his vaccine at his MD at [facility]!! [facility] FLU,3 [...] Range Date Interpretation Specimen Comments Source THYROID TOTAL T3 TRIIODOTHYR ONINE (T3) [MASS/VOLUM E] IN SERUM OR PLASMA 102.12 ng/dL 35 - 193 03/22 Specimen Type: SERUM No comment entered. Ordering Provider: SHAD WHEATLEY A Report Released Date/Time: Mar 22, 2024 10:50 AM Reporting Lab: [facility] [address] [address] Performing Lab: [facility] [address] [address] [place] THYROID T4 FREE(FT4) (WROX) THYROXINE (T4) FREE [MASS/VOLUM E] IN SERUM OR PLASMA 0.99 ng/dL 0.6 - 1.6 03/22 Specimen Type: SERUM No comment entered. Ordering Provider: SHAD WHEATLEY A Report Released Date/Time: Mar 22, 2024 10:50 AM Reporting Lab: [facility] [address] [address] Performing Lab: [facility] [address] [facility] [address] [place] TSH THYROTROPIN [UNITS/VOLU ME] IN SERUM OR PLASMA 6.24 u[IU]/ mL 0.35 - 5.00 03/22 H Specimen Type: SERUM No comment entered. Ordering Provider: SHAD WHEATLEY A Report Released Date/Time: Mar 22, 2024 10:50 AM Reporting Lab: [facility] [address] [address] Performing Lab: [facility] [address] [address] [place] CBC AND DIFF (AUTO) LEUKOCYTES [#/VOLUME] IN BLOOD BY AUTOMATED COUNT 6.41 10*3/u L 4.50 - 11.00 03/22 Specimen Type: BLOOD No comment entered. Ordering Provider: SHAD WHEATLEY A Report Released Date/Time: Mar 22, 2024 10:50 AM Reporting Lab: [facility] [address] [address] Performing Lab: [facility] [address] [address] [place] CBC AND DIFF (AUTO) ERYTHROCYTE S [#/VOLUME] IN BLOOD BY AUTOMATED COUNT 4.43 10*6/u L 4.23 - 5.66 03/22 Specimen Type: BLOOD No comment entered. Ordering Provider: SHAD WHEATLEY A Report Released Date/Time: Mar 22, 2024 10:50 AM Reporting Lab: [facility] [address] [address] Performing Lab: [facility] [address] [place] CBC AND DIFF (AUTO) HEMOGLOBIN [MASS/VOLUM E] IN BLOOD 10.3 g/dL 12.8 - 17 03/22 L Specimen Type: BLOOD No comment entered. Ordering Provider: SHAD WHEATLEY A Report Released Date/Time: Mar 22, 2024 10:50 AM Reporting Lab: [facility] [address] [address] Performing Lab: [facility] [address] [address] [place] CBC AND DIFF (AUTO) HEMATOCRIT [VOLUME FRACTION] OF BLOOD BY AUTOMATED COUNT 32.5 39.2 - 50.4 03/22 L Specimen Type: BLOOD No comment entered. Ordering Provider: SHAD WHEATLEY A Report Released Date/Time: Mar 22, 2024 10:50 AM Reporting Lab: [facility] [address] [address] Performing Lab: [facility] [address] [address] [place] CBC AND DIFF (AUTO) MCV [ENTITIC VOLUME] BY AUTOMATED COUNT 73.4 fL 82 - 99 03/22 L Specimen Type: BLOOD No comment entered. Ordering Provider: SHAD WHEATLEY A Report Released Date/Time: Mar 22, 2024 10:50 AM Reporting Lab: [facility] [address] [address] Performing Lab: [facility] [address] [address] [place] CBC AND DIFF (AUTO) MCHC [MASS/VOLUM E] BY AUTOMATED COUNT 31.7 g/dL 30.8 - 35.1 03/22 Specimen Type: BLOOD No comment entered. Ordering Provider: SHAD WHEATLEY A Report Released Date/Time: Mar 22, 2024 10:50 AM Reporting Lab: [facility] [address] [address] Performing Lab: [facility] [address] [place] CBC AND DIFF (AUTO) PLATELETS [#/VOLUME] IN BLOOD BY AUTOMATED COUNT 284 10*3/u L 140 - 360 03/22 Specimen Type: BLOOD No comment entered. Ordering Provider: SHAD WHEATLEY A Report Released Date/Time: Mar 22, 2024 10:50 AM Reporting Lab: [facility] [address] [address] Performing Lab: [facility] [address] [place] CBC AND DIFF (AUTO) ERYTHROCYTE DISTRIBUTIO N WIDTH [RATIO] BY AUTOMATED COUNT 14.5 12.0 - 16.0 03/22 Specimen Type: BLOOD No comment entered. Ordering Provider: SHAD WHEATLEY A Report Released Date/Time: Mar 22, 2024 10:50 AM Reporting Lab: [facility] [address] [address] Performing Lab: [facility] [place] [address] [address] [place] CBC AND DIFF (AUTO) MONOCYTES [#/VOLUME] IN BLOOD BY AUTOMATED COUNT 0.58 10*3/u L 0.30 - 1.10 03/22 Specimen Type: BLOOD No comment entered. Ordering Provider: SHAD WHEATLEY A Report Released Date/Time: Mar 22, 2024 10:50 AM Reporting Lab: [facility]TRN [address] [address] Performing Lab: [facility] [address] [address] [place] CBC AND DIFF (AUTO) MCH [ENTITIC MASS] BY AUTOMATED COUNT 23.3 pg 26.2 - 32.6 03/22 L Specimen Type: BLOOD No comment entered. Ordering Provider: SHAD WHEATLEY A Report Released Date/Time: Mar 22, 2024 10:50 AM Reporting Lab: [facility]TR[facility] [address] [address] Performing Lab: [facility] [place] [address] [address] [place] CBC AND DIFF (AUTO) NEUTROPHILS /100 LEUKOCYTES IN BLOOD BY AUTOMATED COUNT 62.3 43.7 - 75.8 03/22 Specimen Type: BLOOD No comment entered. Ordering Provider: SHDA WHEATLEY A Report Released Date/Time: Mar 22, 2024 10:50 AM Reporting Lab: [facility] [place] [address] [address] Performing Lab: [facility] [address] [place] CBC AND DIFF (AUTO) LYMPHOCYTES /100 LEUKOCYTES IN BLOOD BY AUTOMATED COUNT 19.3 14.0 - 42.3 03/22 Specimen Type: BLOOD No comment entered. Ordering Provider: SHAD WHEATLEY A Report Released Date/Time: Mar 22, 2024 10:50 AM Reporting Lab: [facility] [place] [address] [address] Performing Lab: [facility] [address] [address] [place] CBC AND DIFF (AUTO) MONOCYTES/1 00 LEUKOCYTES IN BLOOD BY AUTOMATED COUNT 9.0 5.1 - 13.7 03/22 Specimen Type: BLOOD No comment entered. Ordering Provider: SHAD WHEATLEY A Report Released Date/Time: Mar 22, 2024 10:50 AM Reporting Lab: [facility] [address] [address] Performing Lab: [facility] [address] [address] [place] CBC AND DIFF (AUTO) EOSINOPHILS /100 LEUKOCYTES IN BLOOD BY AUTOMATED COUNT 8.0 0.4 - 6.8 03/22 H Specimen Type: BLOOD No comment entered. Ordering Provider: SHAD WHEATLEY A Report Released Date/Time: Mar 22, 2024 10:50 AM Reporting Lab: [facility] [address] [address] Performing Lab: [facility] [address] [address] [place] CBC AND DIFF (AUTO) BASOPHILS/1 00 LEUKOCYTES IN BLOOD BY AUTOMATED COUNT 0.9 0.1 - 2.0 03/22 Specimen Type: BLOOD No comment entered. Ordering Provider: SHAD WHEATLEY A Report Released Date/Time: Mar 22, 2024 10:50 AM Reporting Lab: [facility] [address] [address] Performing Lab: [facility] [address] [address] [place] CBC AND DIFF (AUTO) NEUTROPHILS [#/VOLUME] IN BLOOD BY AUTOMATED COUNT 3.99 10*3/u L 2.20 - 7.60 03/22 Specimen Type: BLOOD No comment entered. Ordering Provider: SHAD WHEATLEY A Report Released Date/Time: Mar 22, 2024 10:50 AM Reporting Lab: [facility] [address] [address] Performing Lab: [facility] [address] [address] [place] CBC AND DIFF (AUTO) LYMPHOCYTES [#/VOLUME] IN BLOOD BY AUTOMATED COUNT 1.24 10*3/u L 1.00 - 3.20 03/22 Specimen Type: BLOOD No comment entered. Ordering Provider: SHAD WHEATLEY A Report Released Date/Time: Mar 22, 2024 10:50 AM Reporting Lab: [facility] [address] [address] Performing Lab: [facility] [address] [place] CBC AND DIFF (AUTO) EOSINOPHILS [#/VOLUME] IN BLOOD BY AUTOMATED COUNT 0.51 10*3/u L 0.03 - 0.44 03/22 H Specimen Type: BLOOD No comment entered. Ordering Provider: SHAD WHEATLEY A Report Released Date/Time: Mar 22, 2024 10:50 AM Reporting Lab: [facility] [address] Performing Lab: [facility] [address] [address] [place] CBC AND DIFF (AUTO) BASOPHILS [#/VOLUME] IN BLOOD BY AUTOMATED COUNT 0.06 10*3/u L 0.01 - 0.13 03/22 Specimen Type: BLOOD No comment entered. Ordering Provider: SHAD WHEATLEY A Report Released Date/Time: Mar 22, 2024 10:50 AM Reporting Lab: [facility] [address] [address] Performing Lab: [facility] [address] [place] CBC AND DIFF (AUTO) IMMATURE GRANULOCYTE S/100 LEUKOCYTES IN BLOOD BY AUTOMATED COUNT 0.5 0.0 - 0.7 03/22 Specimen Type: BLOOD No comment entered. Ordering Provider: SHAD WHEATLEY A Report Released Date/Time: Mar 22, 2024 10:50 AM Reporting Lab: [facility] [address] [address] Performing Lab: [facility] [address] [address] [place] CBC AND DIFF (AUTO) IMMATURE GRANULOCYTE S [#/VOLUME] IN BLOOD 0.03 10*3/u L 0.00 - 0.06 03/22 Specimen Type: BLOOD No comment entered. Ordering Provider: SHAD WHEATLEY A Report Released Date/Time: Mar 22, 2024 10:50 AM Reporting Lab: [address] [address] Performing Lab: [facility] [address] [address] [place] CBC AND DIFF (AUTO) NRBC % 0.0 0.0 - 0.0 03/22 Specimen Type: BLOOD No comment entered. Ordering Provider: SHAD WHEATLEY A Report Released Date/Time: Mar 22, 2024 10:50 AM Reporting Lab: [address] [address] Performing Lab: [facility] [address] [address] [place] CBC AND DIFF (AUTO) NRBC, ABS 0.00 10*3/u L 0.00 - 0.00 03/22 Specimen Type: BLOOD No comment entered. Ordering Provider: SHAD WHEATLEY A Report Released Date/Time: Mar 22, 2024 10:50 AM Reporting Lab: [facility] [address] [address] Performing Lab: [facility] [address] [address] [place] TSH THYROTROPIN [UNITS/VOLU ME] IN SERUM OR PLASMA 6.71 u[IU]/ mL 0.35 - 5.00 02/12 H Specimen Type: SERUM No comment entered. Ordering Provider: JOHN BYRD Report Released Date/Time: December 12, 2023 09:14 PM Reporting Lab: [address] [address] Performing Lab: [address] [address] [place] FERRITIN FERRITIN [MASS/VOLUM E] IN SERUM OR PLASMA 213 ng/mL 20 - 300 11/22 Specimen Type: SERUM No comment entered. Ordering Provider: JOHN BYRD Report Released Date/Time: Oct 05, 2023 03:45 PM Reporting Lab: [address] [address] Performing Lab: [address] [address] [place] VITAMIN D (25-OH) 25-HYDROXYV ITAMIN D3 [MASS/VOLUM E] IN SERUM OR PLASMA 26 ng/mL 20 - 50 11/22 Specimen Type: SERUM No comment entered. Ordering Provider: JOHN BYRD Report Released Date/Time: Oct 05, 2023 03:45 PM Reporting Lab: [address] [address] Performing Lab: [address] [address] [place] IRON & TIBC PANEL IRON BINDING CAPACITY [MASS/VOLUM E] IN SERUM OR PLASMA 268 ug/dL 204 - 475 11/22 Specimen Type: SERUM No comment entered. Ordering Provider: JOHN BYRD Report Released Date/Time: Oct 05, 2023 03:45 PM Reporting Lab: [address] [address] Performing Lab: [address] [address] [place] IRON & TIBC PANEL IRON [MASS/VOLUM E] IN SERUM OR PLASMA 40 ug/dL 40 - 160 11/22 Specimen Type: SERUM No comment entered. Ordering Provider: JOHN BYRD Report Released Date/Time: Oct 05, 2023 03:45 PM Reporting Lab: [address] [address] Performing Lab: [address] [address] [place] IRON & TIBC PANEL IRON/IRON BINDING CAPACITY.TO SPENCER [MASS RATIO] IN SERUM OR PLASMA 14.9 20.0 - 50.0 11/22 L Specimen Type: SERUM No comment entered. Ordering Provider: JOHN BYRD Report Released Date/Time: Oct 05, 2023 03:45 PM Reporting Lab: [address] [address] Performing Lab: [address] [address] [place] TSH THYROTROPIN [UNITS/VOLU ME] IN SERUM OR PLASMA 7.13 u[IU]/ mL 0.35 - 5.00 11/22 H Specimen Type: SERUM No comment entered. Ordering Provider: JOHN BYRD Report Released Date/Time: Oct 05, 2023 03:45 PM Reporting Lab: [address] [address] Performing Lab: [address] [address] [place] HEMOGLOBI N A1C PANEL HEMOGLOBIN A1C/HEMOGLO BIN.TOTAL [...] PM Reporting Lab: [facility] [address] [address] Performing Lab: [facility] [address] [address] [facility] Vital Signs Combined list of inpatient and outpatient Vital Signs from Department of Defense and Veterans Affairs, ranging from 12 months to all on record, depending upon the facility. Vital Sign Value Date Comments Source SYSTOLIC BLOOD PRESSURE 146 03/22/20 24 12:40:04 [place] DIASTOLIC BLOOD PRESSURE 81 024 12:40:04 [place] PULSE OXIMETRY 96 03/22/2024 12:40:04 [place] WEIGHT 215.4 03/22/2024 12:40:04 [place] BMI 32kg/m2 03/22/2024 12:40:04 [place] TEMPERATURE 98.2 03/22/2024 12:40:04 [place] PULSE 83 03/22/2024 12:40:04 [place] SYSTOLIC BLOOD PRESSURE 140 10/20/19 24 15:47:08 [facility] DIASTOLIC BLOOD PRESSURE 77 024 15:47:08 [facility] PULSE OXIMETRY 97 10/20/2023 15:47:08 [facility] PULSE OXIMETRY 95 10/05/2023 15:06:05 [place] WEIGHT 188 10/05/2023 15:06:05 [place] BMI 28kg/m2 10/05/2023 15:06:05 [place] PAIN 6 10/05/2023 15:06:05 [place] HEIGHT 69 10/05/2023 15:06:05 [place] TEMPERATURE 98.8 10/05/2023 15:06:05 [place] PULSE 90 10/05/2023 15:06:05 [facility] RESPIRATION 18 10/05/2023 15:06:05 [facility] Encounters Combined list of: 1) Encounters from Department of [facility] Affairs facilities [facility]. 2) Encounters from the Department of Defense facilities going back up to 280 months. Location Location Details Encounter Type Encounter Number Reason For Visit Attending Provider ADM Date DC Date Status Disposition Source [facility] Encounter [id number] 02/15 [facility] Out[facility] Encounter [id number] SHERIF CASTAÑEDA 02/22 [facility] OFFICE O/P EST MOD 30-39 MIN [id number] Diagnos is: ICD-10- CM S27.0XX D Traumat ic pneumot horax, subsequ ent encount er
MARGARITA SCHAFER 03/02 [facility] [place] [facility] Out[facility] Encounter [id number] 03/04 [facility] Out[facility]counter [id number] 03/15 [facility] Out[facility]counter [id number] 03/30 [facility] Out[facility] Encounter [id number] 04/01 [facility] EYE EXAM&TX ESTAB PT 1/>VST [id number] Diagnos is: ICD-10- CM H35.313 2 Nexdtve age-rel ated mclr frankien, pura al, interme d dry stage<b r/> [place] CADENA Paul B 04/19 [facility] FIT SPECTACLES BIFOCAL [id number] Diagnos is: ICD-10- CM Z46.0 Encount er for fit/adj st of spectac les and contact lenses< br/> NÉSTOR WILSON 04/20 [facility] Out[facility] Encounter [id number] 04/21 [facility] Out[facility] Encounter [id number] 04/21 [facility] Out[facility] Encounter [id number] 05/01 [facility] Out[facility] Encounter [id number] 05/24 [facility] Out[facility] Encounter [id number] 05/30 [facility] Out[facility] Encounter [id number] 05/31 [facility] Out[facility] Encounter [id number] 06/02 [facility] Outpatient Encounter [id number] 06/08 [facility] Out[facility] Encounter [id number] 06/27 [facility] [place] Outpatient Encounter [id number] 06/28 [place] [facility] Outpatient Encounter [id number] 06/29 [facility] Outpatient Encounter [id number] 07/04 [facility] Outpatient Encounter [id number] 07/07 [facility] Out[facility] Encounter [id number] 07/08 [facility] INTRAORAL PERIAPICAL EA ADD [id number] Diagnos is: ICD-10- CM K08.9 Disorde r of teeth and support ing structu res, unspeci fied
KADEN ALONSO 07/08 [facility] En[facility] [id number] 07/20 [facility] Out[facility] Encounter [id number] 07/21 [facility] Out[facility] Encounter [id number] 07/21 [facility] EXTRACTION ERUPTED TOOTH/EXR [id number] Diagnos is: ICD-10- CM K08.9 Disorde r of teeth and support ing structu res, unspeci fied
DE BECKETT 07/22 [facility] Encounter [id number] 07/22 [facility] Outpatient Encounter [id number] 07/26 [facility] Out[facility] Encounter [id number] 07/27 [facility] Outpatient Encounter [id number] 08/01 [facility] Out[facility] Encounter [id number] 08/01 [facility] Out[facility] Encounter [id number] 08/02 [facility] Out[facility] Encounter [id number] 08/10 [facility] Out[facility] Encounter [id number] 08/15 [facility] Out[facility] Encounter [id number] 08/18 [facility] Out[facility]counter [id number] 08/18 [facility] Outpatient Encounter [id number] 08/23 [facility] CLEAN/INSP ECT MAX COMP DENT [id number] Diagnos is: ICD-10- CM K03.6 Deposit s [accret ions] on teeth<b r/> NATHALY,MAUREEN MARTIN K 08/24 [facility] OFFICE O/P EST HI 40 MIN [id number] Diagnos is: ICD-10- CM R11.2 Nausea with vomitin g, unspeci fied
GIL BYRD J 10/04 [place] [facility] Outpatient Encounter [id number] 10/06 [facility] OFFICE O/P EST MOD 30 MIN [id number] Diagnos is: ICD-10- CM M54.50 Low back pain, unspeci fied
MELVINA BAIN IEL Y 10/19 [facility] Out[facility] En[facility] [id number] 10/24 [facility] Outpatient Encounter [id number] 11/06 [facility] Out[facility] Encounter [id number] 11/10 [facility] Out[facility] Encounter [id number] 11/10 [facility] Out[facility] Encounter [id number] 11[facility]15 [facility] Out[facility] Encounter [id number] 11/15 [facility] Out[facility] Encounter [id number] 12/25 [facility] Out[facility] Encounter [id number] 12/29 [facility] Out[facility] Encounter [id number] 01/17 [facility] Out[facility] Encounter [id number] 01/19 [facility] Out[facility] Encounter [id number] 01/28 [facility] Out[facility]counter [id number] 01/29 [facility] Out[facility] Encounter [id number] 02/01 [facility] Out[facility] Encounter [id number] 02/06 [facility] Out[facility] Encounter [id number] 02/06 [facility] Out[facility] Encounter [id number] 02/06 [facility] Out[facility]counter [id number] 02/08 [facility] Out[facility]counter [id number] 02/12 [facility] Out[facility]counter [id number] 02/20 [facility] Out[facility]counter [id number] 02/27 [facility] Out[facility] Encounter [id number] 1.03/19 [facility] OFFICE O/P EST MOD 30 MIN [id number] Diagnos is: ICD-10- CM D64.9 Anemia, unspeci fied
EDISON WHEATLEY A 03/22 [facility] En[facility] [id number] 1.03/22 [facility] Out[facility] Encounter [id number] 1.03/22 [facility] Out[facility] Encounter [id number] 1.03/27 [facility] Out[facility]counter [id number] 04/10 [facility] Out[facility] Encounter [id number] 04/11 [facility] Out[facility] Encounter [id number] 04/24 [facility] OFFICE O/P EST LOW 20 MIN [id number] Diagnos is: ICD-10- CM L60.3 Nail dystrop hy
LUX BLOOM ES F 04/24 [facility] CASE MGMT-ORAL HEALTH LIT [id number] Diagnos is: ICD-10- CM K03.6 Deposit s [accret ions] on teeth<b r/> NATHALY,MAUREEN MARTIN K 04/25 [facility] Out[facility] Encounter [id number] 04/26 [facility] Out[facility] Encounter [id number] 05/05 [facility] Out[facility] Encounter [id number] 1.05/24 [facility] Out[facility] Encounter [id number] 1.05/25 [facility] Out[facility]counter [id number] 05[facility]25 [facility] Out[facility]counter [id number] 05/26 [facility] Out[facility] Encounter [id number] [facility] Out[facility]counter [id number] 1.05/28 [facility] Out[facility]counter [id number] 05/28 [facility] Out[facility] Encounter [id number] 05/29 [facility] Outpatient Encounter [id number] 05/29 [facility] Encounter [id number] 06/03 [facility] Outpatient [facility]counter [id number] 06/07 [facility] Out[facility] Encounter [id number] 06/08 [facility] Out[facility] Encounter [id number] 06/11 [facility] Out[facility] Encounter [id number] 06/18 [facility] Out[facility] Encounter [id number] 06/18 [facility] Outpatient Encounter [id number] 06/18 [facility] Outpatient Encounter [id number] 06/19 [facility] [place] 1 [id number] Diagnos is: ICD-10- CM H35.313 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, bilater al, interme d dry stage<b r/> LAMAR,LACE Y J 06/26 [facility] Outpatient Encounter [id number] 06[facility]26 [facility] ECHO EXAM OF EYE THICKNESS [id number] Diagnos is: ICD-10- CM H40.013 Open angle with borderl ine finding s, low risk, bilater al
LAMAR,LACE Y J 06/26 [facility] FUNDUS PHOTOGRAPH Y W/I&R [id number] Diagnos is: ICD-10- CM H35.313 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, bilater al, interme d dry stage<b r/> LAMAR,LACE Y J 06/26 [facility] FIT SPECTACLES BIFOCAL [id number] Diagnos is: ICD-10- CM Z46.0 Encount er for fit/adj st of spectac les and contact lenses< br/> LAMAR,LACE Y J 06/26 [facility] Outpatient Encounter [id number] 06/28 [facility] OFF/OP CNSLTJ NEW/EST MOD 40 [id number] Diagnos is: ICD-10- CM R10.30 Lower abdomin al pain, unspeci fied
JENNI NGUYEN MD 07/03 [facility] Outpatient Encounter [id number] Paul RODRIGUEZ 07/09 [facility] Outpatient Encounter [id number] 07/16 [facility] Outpatient Encounter [id number] 07/26 [facility] Outpatient Encounter [id number] 07/26 [facility] Outpatient Encounter [id number] 07/26 [facility] Social History Combined list of available smoking, tobacco, and other social history from Department of Defense and Veterans Affairs facilities. Social History Type Response Date Comment Sourc e Tobacco smoking status [facility] VA-TOBACCO NEVER USED 03/22/2024 [facility] History of tobacco use VA-TOBACCO NEVER USED 03/02/2023 [facility] D History of tobacco use VA-TOBACCO NEVER USED 03/04/2022 [facility] Joao History of tobacco use VA-TOBACCO NEVER USED 03/26/2021 [facility] History [facility] tobacco use VA-TOBACCO NEVER USED [facility] of tobacco use VA-TOBACCO NEVER USED 09/26/2018 [facility] Jo[place] History of tobacco use FORMER SMOKER - <100 LIFETIME CIGARETTES 06/26/2018 [facility] History of tobacco use LIFETIME NON-TOBACCO USER 11/04/2017 [facility] History of tobacco use LIFETIME NON-TOBACCO USER 11/04/2016 [facility] History of tobacco use LIFETIME NON-TOBACCO USER 10/09/2015 [facility] History of tobacco use HISTORY OF SMOKING 07/23/2005 [facility] History of tobacco use LIFETIME NON-SMOKER 08/20/2004 [facility] Plan of Care List of future care activities from [facility] facilities. Additional future care activities may be listed in the Assessment and Plan section. Date/Time Care Activity Care Activity Detail Facili ty 09/04/2024 AMBULATORY - MEDICINE AMBULATORY - MEDICI [facility] 09/11/2024 AMBULATORY - MEDICINE AMBULATORY - MEDICI [facility] 10/24/2024 AMBULATORY - NONE AMBULATORY - NONE [facility] 10[facility]30/2024 AMBULATORY - MEDICINE AMBULATORY - MEDICI [facility] 12[facility]26/2024 AMBULATORY - MEDICINE AMBULATORY - MEDICI NE [facility] 12/26/2024 AMBULATORY - MEDICINE AMBULATORY - MEDICI COUNTS INCLUDE 234 BEDS AT THE [facility] 07/27/2024 Consult Order COMMUNITY CARE-P AIN MANAGEMENT Cons [facility] Advance Directives List of completed, amended, or rescinded Advance Directives on record at [facility] facilities. An actual copy of the Directive is not included. Date Advance Directive Provider Source 11/04/2016 ADVANCE DIRECTIVE RONY URRUTIA [facility]
--- NOTE | 2024-08-01 14:18 | A.OFFVIS_ITS ---
Vital Signs 08/01/24 14:19 Height 5 ft 8 in Weight 193 lb BMI 29.3 BP 154/83 H Blood Pressure Location Lt brachial Position Sitting Respiration 15 Pulse 98 Pulse Source Pulse Oximeter Pulse Oximetry (%) 99 Oxygen Delivery Method Room Air Intake Visit Reasons: Pain Pump Adjustment Allergies No Known Allergies Allergy (Verified 08/01/24 14:30) Medication List - Last Reconciled 08/01/24 by Scarlet Durbin LPN baclofen 10 mg PO TID 30 days betamethasone valerate 0.1% appl topical DAILY PRN [levothyroxine ] naloxone 4 mg/actuation 4 mg intranasal Q2M PRN 1 day [omeprazole ] [paroxetine HCl ] [simvastatin ] sucralfate 1 g PO BID [zolpidem ] HPI Comments Details: El is in my office for intrathecal pain pump medication refill. He reports pain improvement, better mobility better activities of daily living, social interactions. I increased today continuous dose of the hydromorphone to 135 micro g per day. He still has plenty of medication in his pump. I will schedule him for another escalation in 1 week. I will continue escalation of baclofen to help to control the pain of this patient. [facility] Medical History Obesity PTSD (post-traumatic stress disorder) GERD (gastroesophageal reflux disease) Hypercholesteremia Hypothyroid Retrolisthesis of vertebrae Spondylosis, lumbar, with myelopathy Degeneration, intervertebral disc, cervical Disc degeneration, lumbar Chronic pain syndrome Surgical History S/P insertion of spinal cord stimulator History of total left knee replacement Social History Patient Tobacco Use Status: Never used Tobacco Review of Systems Const All systems reviewed & are unremarkable except as noted in HPI and below Physical Exam Vital Signs: Last Vital Signs Pulse 98 08/01/24 14:19 Resp 15 08/01/24 14:19 BP 154/83 H 08/01/24 14:19 Pulse Ox 99 08/01/24 14:19 Oxygen Delivery Method Room Air 08/01/24 14:19 BMI result Body Mass Index 29.3 Last Vital Signs Pulse 74 06/30/23 17:30 Resp 16 12/07/23 17:30 BP 137/42 L 12/07/23 17:30 Pulse Ox 99 06/30/23 17:30 O2 Del Method Room Air 06/30/23 17:30 BMI result Body Mass Index 27.9 Const General: cooperative, comfortable, no acute distress and alert Orientation/consciousness: oriented to person, oriented to place, oriented to time and patient oriented x3 Resp Effort & Inspection: normal respiratory effort, able to speak in complete sentences, normal respiratory pattern, no audible wheezes, no cough and respiratory effort not decreased Cardio Jugular venous distension: no JVD Back/Spine/Pelvis Thoracic/Lumbar Spine: paraspinal muscle tenderness, thoracic spinal tenderness and lumbar spinal tenderness Neuro General: oriented to person, oriented to place, oriented to time and patient oriented x3 Assessment & Plan Assessment & Plan (1) Retrolisthesis of vertebrae: Code(s): M43.10 - Spondylolisthesis, site unspecified Category: Medical (2) Chronic pain syndrome: Code(s): G89.4 - Chronic pain syndrome Category: Medical (3) Disc degeneration, lumbar: Code(s): M51.36 - Other intervertebral disc degeneration, lumbar region Category: Medical (4) Degeneration, intervertebral disc, cervical: Code(s): M50.30 - Other cervical disc degeneration, unspecified cervical region Category: Medical (5) Spondylosis, lumbar, with myelopathy: Code(s): M47.16 - Other spondylosis with myelopathy, lumbar region Category: Medical Plan: The pump adjustment see as below. (6) Spondylosis of cervical joint without myelopathy: Code(s): M47.812 - Spondylosis without myelopathy or radiculopathy, cervical region Category: Medical Plan: He decided against removal of the pain pump and termination of the intrathecal therapy. The doses escalated as below. We will see this patient next week. Next medication refill we will double concentration of the baclofen. (7) Spondylosis of lumbar region without myelopathy or radiculopathy: Code(s): M47.816 - Spondylosis without myelopathy or radiculopathy, lumbar region Category: Medical Plan Intrathecal pain pump interrogation and dose adjustment. The patient pain pump was interrogated and the dose was changed from 12 mcg of hydromorphone dose to 96.1 micro g of hydromorphonea a day. Corresponding dose of baclofen was changed from1.23 mcg per day to 9.6 micro g a day . Coding Level of Care Code Est Pt Level 3 (39481) Procedure Only Diagnoses Retrolisthesis of vertebrae M43.10 Chronic pain syndrome G89.4 Disc degeneration, lumbar M51.36 Degeneration, intervertebral disc, cervical M50.30 Spondylosis, lumbar, with myelopathy M47.16 Spondylosis of cervical joint without myelopathy M47.812 Spondylosis of lumbar region without myelopathy or radiculopathy M47.816
[2024-08-01 14:19] VITALS: BP 154/83; PULSE 98; RESP 15; O2SAT 99; BMI 29.3
--- OUTSIDE RECORDS SUMMARY | 2024-08-01 14:20 | XMS_ITS | Encounter Summary ---
Author Name [facility] [place] Address [address] [place] [address] Care Team Providers Care Radiotelephone Operator Name Role Phone WAYNE WHEATLEY Primary [...] Name Patient's Relationship to Policy [facility]) MEDICARE ADVANTAGE [facility] ([facility]) Aug 25, 2001 [facility]) [id number] TIERNEYADRIANA RUSSO PATIENT MEDICARE ([facility]) MEDICARE (M) PART A Oct 23, 2016 PART A [id number] QUE GELLER PATIENT MEDICARE ([facility]) MEDICARE (M) PART B Oct 23, 2016 PART B [id number] QUE GELLER PATIENT MEDICARE ([facility]) MEDICARE (M) PART B Jul 25, 2011 PART B [id number] [phone] QUE GELLER PATIENT MEDICARE ([facility]) MEDICARE (M) PART B Jul 25, 2011 PART B [id number] QUE GELLER PATIENT MEDICARE (WNR) MEDICARE (M) PART B Jul 25, 2011 PART B [id number] QUE GELLER PATIENT MEDICARE (WNR) MEDICARE (M) PART A Apr 24, 2004 PART A [id number] [phone] QUE GELLER PATIENT MEDICARE (WNR) MEDICARE (M) PART A Apr 24, 2004 PART A [id number] [phone] QUE GELLER PATIENT MEDICARE (WNR) MEDICARE (M) PART A Apr 24, 2004 PART A [id number] QUE GELLER PATIENT Selected Encounter This [...] activities for the patient from all [place] [facility]. This section includes future appointments and [...] PM AMBULATORY - MEDICINE [facility] Sep 11, 2024 01:00 PM [facility]ORY - MEDICINE [facility] Oct 24, 2024 04:00 PM AMBULATORY - NONE [facility] [place] [facility] Oct 30, 2024 01:00 PM [facility] Dec 26, 2024 01:30 PM [facility]UL[facility] - MEDICINE [place] [facility] [place] [facility] Dec 26, 2024 02:30 PM [facility] Active, Pending, and Scheduled Orders This section includes a listing of several types of active, pending, and scheduled orders, including clinic medications orders, diagnostic test orders, procedure orders and consult orders; where the start date of the order is 45 days before the date of the Encounter or 45 days after the date of theEncounter. The data comes from all [place] treatment facilities. Test Date/Time Test Type Test Details Facility Name Jul 27, 2024 09:01 AM Consult Order COMMUNITY CARE-PAIN MANAGEMENT Cons Recreation Counselor's [facility] [place] Social History: Smoking Status (Most current) and [...] Facil ity Mar 22, 2024 12:43 PM [place]-TOBACCO NEVER USED [facility] Tobacco Use History This section includes a history of the smoking, or tobacco-related health factors, that were collected on or before the date of the Encounter. The data comes from the [place] facility where the Encounter took place. Date/Time Smoking Status/Tobacco Use Comment F acility Mar 26, 2021 02:25 PM VA-TOBACCO NEVER USED [facility] Advance Directives: All historical and [...] 04, 2016 ADVANCE DIRECTIVE RONY URRUTIA [facility] Encounter Notes: All associated encounter [...] Patient Name: KAM GELLER Patient Primary Phone: [phone] Patient Primary Address: [address] [place] [address] Patient : 1950 Patient Age: 73 Current Location: [facility] Call Back Number: [phone] Caller/Recipient Relation to Patient: Other If Other Describe Relation to Patient: provider pain managment Caller Name: Emelia Administrative Administrative Note Reason: Other Administrative Note Comments: Emelia with the pain management clinic at [facility] calling to inquire whether or not removal of a pain pump requires preauthorization and is requesting a call back at [phone] to discuss or if needed preauthorization can be faxed to [phone] IMPORTANT: This note was created by [facility] Clinical Contact Center staff. Please do not alert the staff member by adding them as a signer for future communications. Alerts are not monitored by this user. /shantel VEE Signed: 07/26/2024 14:28 Receipt Acknowledged By: 07/26/2024 14:45 /jose cruz/ LUCIA SHERIDAN REGISTERED NURSE 07/27/2024 13:39 /es/ GALINDO MCCRACKEN LPN LPN 07/26/2024 ADDENDUM STATUS: COMPLETED Email sent to [facility] for clarification. Awaiting response, will update when known. /shantel SHERIDAN REGISTERED NURSE Signed: 07/26/2024 14:46 07/26/2024 ADDENDUM STATUS: COMPLETED [facility] advise to enter new consult for removal of device. Consult placed and held for provider review and signature if appropriate. /shantel SHERIDAN REGISTERED NURSE Signed: 07/26/2024 15:13 Receipt Acknowledged By: * AWAITING SIGNATURE * WAYNE WHEATLEY JULIE A [place] [facility]
== END 2024-08-01 14:38 | disposition home or self-care (01) ==
PROVIDERS: PCP Nurse Practitioner Family; Visit Provider Anesthesiology
DX: G89.4 Chronic pain syndrome (principal); M43.10 Spondylolisthesis, site unspecified; M51.369 Other intervertebral disc degeneration, lumbar region without mention of lumbar back pain or lower extremity pain; M50.30 Other cervical disc degeneration, unspecified cervical region; Z45.1 Encounter for adjustment and management of infusion pump; M47.16 Other spondylosis with myelopathy, lumbar region; M47.812 Spondylosis without myelopathy or radiculopathy, cervical region; M47.816 Spondylosis without myelopathy or radiculopathy, lumbar region
CPT/HCPCS: 95991; 99213

== ENCOUNTER → 2024-08-01 14:13 | Outpatient (BNVA) | payer OTHER, SELFPAY | PROVIDERS: PCP Nurse Practitioner Family; Visit Provider Anesthesiology | DX: Z45.89 Encounter for adjustment and management of other implanted devices (principal); M43.10 Spondylolisthesis, site unspecified; M51.360 Other intervertebral disc degeneration, lumbar region with discogenic back pain only; M50.30 Other cervical disc degeneration, unspecified cervical region; M47.16 Other spondylosis with myelopathy, lumbar region; M47.812 Spondylosis without myelopathy or radiculopathy, cervical region; M47.816 Spondylosis without myelopathy or radiculopathy, lumbar region; G89.4 Chronic pain syndrome | CPT/HCPCS: 99212 ==

== ENCOUNTER 2024-08-16 14:56 | Outpatient (AMB) | payer OTHER, SELFPAY ==
--- NOTE | 2024-08-16 15:01 | MHC.OFFVIS ---
Vital Signs 08/16/24 15:06 Height 5 ft 8 in Weight 196 lb BMI 29.8 BP 155/72 H Blood Pressure Location Rt brachial Position Sitting Pulse 80 Pulse Source Pulse Oximeter Intake Visit Reasons: Pump adjustment Intake Note: Pain today 01/31 Television News Anchor Required: No Accompanied by: Self / Same As Patient Allergies No Known Allergies Allergy (Verified 08/16/24 15:06) HPI Comments Details: El is in my office for intrathecal pain pump medication refill. He reports pain improvement, better mobility better activities of daily living, social interactions. I increased today continuous dose of the hydromorphone to 190 micro g per day. He still has plenty of medication in his pump. I will schedule him for another escalation in 1 week. I will continue escalation of baclofen to help to control the pain of this patient. [facility] Medical History Obesity PTSD (post-traumatic stress disorder) GERD (gastroesophageal reflux disease) Hypercholesteremia Hypothyroid Retrolisthesis of vertebrae Spondylosis, lumbar, with myelopathy Degeneration, intervertebral disc, cervical Disc degeneration, lumbar Chronic pain syndrome Surgical History S/P insertion of spinal cord stimulator History of total left knee replacement Social History Patient Tobacco Use Status: Never used Tobacco Review of Systems Const All systems reviewed & are unremarkable except as noted in HPI and below Physical Exam Vital Signs: Last Vital Signs Pulse 80 08/16/24 15:06 BP 155/72 H 08/16/24 15:06 BMI result Body Mass Index 29.8 Last Vital Signs Pulse 74 06/30/23 17:30 Resp 16 06/30/23 17:30 BP 137/42 L 06/30/23 17:30 Pulse Ox 99 06/30/23 17:30 O2 Del Method Room Air 06/30/23 17:30 BMI result Body Mass Index 27.9 Const General: cooperative, comfortable, no acute distress and alert Orientation/consciousness: oriented to person, oriented to place, oriented to time and patient oriented x3 Resp Effort & Inspection: normal respiratory effort, able to speak in complete sentences, normal respiratory pattern, no audible wheezes, no cough and respiratory effort not decreased Cardio Jugular venous distension: no JVD Back/Spine/Pelvis Thoracic/Lumbar Spine: paraspinal muscle tenderness, thoracic spinal tenderness and lumbar spinal tenderness Neuro General: oriented to person, oriented to place, oriented to time and patient oriented x3 Assessment & Plan Assessment & Plan (1) Retrolisthesis of vertebrae: Code(s): M43.10 - Spondylolisthesis, site unspecified Category: Medical (2) Chronic pain syndrome: Code(s): G89.4 - Chronic pain syndrome Category: Medical (3) Disc degeneration, lumbar: Code(s): M51.36 - Other intervertebral disc degeneration, lumbar region Category: Medical (4) Degeneration, intervertebral disc, cervical: Code(s): M50.30 - Other cervical disc degeneration, unspecified cervical region Category: Medical (5) Spondylosis, lumbar, with myelopathy: Code(s): M47.16 - Other spondylosis with myelopathy, lumbar region Category: Medical Plan: The pump adjustment see as below. (6) Spondylosis of cervical joint without myelopathy: Code(s): M47.812 - Spondylosis without myelopathy or radiculopathy, cervical region Category: Medical Plan: He decided against removal of the pain pump and termination of the intrathecal therapy. The doses escalated as below. We will see this patient next week. After that I will increase the concentration of his baclofen from 200 micro g per mL to 400 micro g per mL. (7) Spondylosis of lumbar region without myelopathy or radiculopathy: Code(s): M47.816 - Spondylosis without myelopathy or radiculopathy, lumbar region Category: Medical Plan Intrathecal pain pump interrogation and dose adjustment. The patient pain pump was interrogated and the dose was changed from 135 micro g of hydromorphone to 190 micro g with corresponding doses of baclofen and bupivacaine. Coding Level of Care Code Est Pt Level 3 (00691) Procedure Only Diagnoses Retrolisthesis of vertebrae M43.10 Chronic pain syndrome G89.4 Disc degeneration, lumbar M51.36 Degeneration, intervertebral disc, cervical M50.30 Spondylosis, lumbar, with myelopathy M47.16 Spondylosis of cervical joint without myelopathy M47.812 Spondylosis of lumbar region without myelopathy or radiculopathy M47.816
[2024-08-16 15:06] VITALS: BP 155/72; PULSE 80; BMI 29.8
--- OUTSIDE RECORDS SUMMARY | 2024-08-16 17:49 | XMS_ITS | Encounter Summary ---
Author Name [facility] [place] Address [address] [place] [address] Care Team Providers Care Vibrator Equipment Tester Name Role Phone WAYNE WHEATLEY Primary Care [...] Name Patient's Relationship to Policy [facility]) MEDICARE ADVANTAGE [facility] ([facility]) Aug 25, 2001 [facility] ([facility]) [id number] DOMADRIANA SLAINAS JOHN PATIENT MEDICARE ([facility]) MEDICARE (M) PART A Oct 23, 2016 PART A [id number] QUE GELLER PATIENT MEDICARE ([facility]) MEDICARE (M) PART B Oct 23, 2016 PART B [id number] QUE GELLER PATIENT MEDICARE ([facility]) MEDICARE (M) PART B Jul 25, 2011 PART B [id number] QUE GELLER PATIENT MEDICARE ([facility]) MEDICARE (M) PART B Jul 25, 2011 PART B [id number] QUE GELLER PATIENT MEDICARE (WNR) MEDICARE (M) PART B Jul 25, 2011 PART B [id number] QUE GELLER PATIENT MEDICARE (WNR) MEDICARE (M) PART A Apr 24, 2004 PART A [id number] QUE GELLER PATIENT MEDICARE (WNR) MEDICARE (M) PART A Apr 24, 2004 PART A [id number] QUE GELLER PATIENT MEDICARE (WNR) MEDICARE (M) PART A Apr 24, 2004 PART A [id number] [phone] QUE GELLER PATIENT Selected Encounter This section includes the information on record at [place] for the Encounter. Date/Time Encounter Type Encounter Description Reason Pro vider Source Jul 26, 2024 02:28 PM Outpatient Encounter ADMIN PAT ACTIVTIES (MASNONCT) IHE Encounter Template Text not used by [place] Plan of Treatment: Future Appointments (+ 6 months) and Future Tests (+/- 45 days) The Plan of Treatment section includes future care activities for the patient from all [place] treatmentfacilities. This section includes future appointments and future orders which are active, pending or scheduled. Future Appointments This section includes appointments that were scheduled to occur 6 months from the date of the Encounter, up to a maximum of 20 appointments. The data comes from all [place] treatment facilities. Appointment Date/Time Appointment Type Appointme nt Facility Name Aug 27, 2024 11:00 AM AMBULATORY - MEDICINE [place] [facility] [place] [place] [facility] Sep 04, 2024 04:00 PM AM[facility]ULATORY - MEDICINE [facility] Sep 11, 2024 01:00 PM [facility]ATORY [facility] MEDICINE [facility] Oct 24, 2024 04:00 PM AMBULATORY - NONE [facility] [place] [place] [facility] Oct 30, 2024 01:00 PM AM[facility]ULATORY - MEDICINE [facility] [place] December 03, 2024 03:30 PM AMBULATORY - MEDICINE [place] [facility] [place] [facility] Dec 26, 2024 01:30 PM AM[place]ULATORY - MEDICINE [place] [facility] [place] [facility] Dec 26, 2024 02:30 PM AMBULATORY - MEDICINE [facility] Active, Pending, and Scheduled Orders This section includes a listing of several types of active, pending, and scheduled orders, including clinic medications orders, diagnostic test orders, procedure orders and consult orders; where the start date of the order is 45 days before the date of the Encounter or 45 days after the date of the Encounter. The data comes from all [place] treatment facilities. 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 Current Smoking Status This section includes the most current smoking, or tobacco-related health factor, from the [place] facility where the Encounter took place. Date/Time Current Smoking Status Comment Facil ity Mar 22, 2024 12:43 PM VA-TOBACCO NEVER USED [facility] Tobacco Use History This section includes a history of the smoking, or tobacco-related health factors, that were collected on or before the date of the Encounter. The data comes from the [place] facility where the Encounter took place. Date/Time Smoking Status/Tobacco Use Comment F acility Mar 26, 2021 02:25 PM VA-TOBACCO NEVER USED [facility] Advance Directives: All historical and current Section Date Range: From patient's date of to the date document was created. This section includes ALL of a patient's completed or amended [place] Advance and Rescinded Directives. The entries below indicate that a directive exists for the patient, but an actual copy is not included with this document. The data comes from all [place] facilities. Date Advance Directives Provider Source Nov 04, 2016 ADVANCE DIRECTIVE [facility] Encounter Notes: All associated encounter notes This section contains the clinical notes associated to the Encounter. Date/Time Encounter Note(s) Provider Source Jul 26, 2024 03:12 PM ADDENDUM: LOCAL TITLE: Addendum STANDARD TITLE: ADDENDUM DATE OF NOTE: JUL 26, 2024@15:12:42 ENTRY DATE: JUL 26, 2024@15:12:43 AUTHOR: LUCIA SHERIDAN COSIGNER: URGENCY: STATUS: COMPLETED Community care advise to enter new consult for removal of device. Consult placed and held for provider review and signature if appropriate. /shantel SHERIDAN REGISTERED NURSE Signed: 07/26/2024 15:13 Receipt Acknowledged By: 08/01/2024 14:48 /jose cruz/ WAYNE WHEATLEY NP NURSE PRACTITIONER --- Original Document --- 07/26/24 CCC: SCHEDULING ADMINISTRATION: Patient Demographics Patient Name: KAM GELLER Patient Primary Phone: [phone] Patient Primary [address]: [address] [place] [address] Patient : 1950 Patient Age: 73 Current Location: [place] Call Back Number: [phone] Caller/Recipient Relation to Patient: Other If Other Describe Relation to Patient: provider pain managment Caller Name: Emelia Administrative Administrative Note Reason: Other Administrative Note Comments: Emelia with the pain management clinic at [facility] calling to inquire whether or not removal of a pain pump requires preauthorization and is requesting a call back at [phone] to discuss or if needed preauthorization can be faxed to [phone] IMPORTANT: This note was created by [facility] Clinical Contact Center staff. Please do not alert the staff member by adding them as a signer for future communications. Alerts are not monitored by this user. /jose cruz/ MELISSA VEE Signed: 07/26/2024 14:28 Receipt Acknowledged By: 07/26/2024 14:45 /shantel SHERIDAN REGISTERED NURSE 07/27/2024 13:39 /jose cruz/ GALINDO MCCRACKEN LPN LPN 07/26/2024 ADDENDUM STATUS: COMPLETED Email sent to [facility] for clarification. Awaiting response, will update when known. /shantel SHERIDAN REGISTERED NURSE Signed: 07/26/2024 14:46 LUCIA SHERIDAN [place] [facility] [place] [facility] Jul 26, 2024 02:28 PM ADMINISTRATIVE NOT E: LOCAL TITLE: CCC: SCHEDULING ADMINISTRATION STANDARD TITLE: ADMINISTRATIVE NOTE DATE OF NOTE: JUL 26, 2024@14:28:17 ENTRY DATE: JUL 26, 2024@14:28:18 AUTHOR: MELISSA VEE COSIGNER: URGENCY: STATUS: COMPLETED CCC: SCHEDULING ADMINISTRATION Has ADDENDA Patient Demographics Patient Name: KAM GELLER Patient Primary Phone: [phone] Patient Primary Address: [address] [place] [address] Patient : 1950 Patient Age: 73 Current Location: [place] Call Back Number: [phone] Caller/Recipient Relation to Patient: Other If Other Describe Relation to Patient: provider pain managment Caller Name: Emelia Administrative Administrative Note Reason: Other Administrative Note Comments: Emelia with the pain management clinic at [facility] calling to inquire whether or not removal of a pain pump requires preauthorization and is requesting a call back at [phone] to discuss or if needed preauthorization can be faxed to [phone] IMPORTANT: This note was created by [facility] Clinical Contact Center staff. Please do not alert the staff member by adding them as a signer for future communications. Alerts are not monitored by this user. /shantel VEE Signed: 07/26/2024 14:28 Receipt Acknowledged By: 07/26/2024 14:45 /shantel SHERIDAN REGISTERED NURSE 07/27/2024 13:39 /jose cruz/ GALINDO MCCRACKEN LPN LPN 07/26/2024 ADDENDUM STATUS: COMPLETED Email sent to [facility] for clarification. Awaiting response, will update when known. /shantel SHERIDAN REGISTERED NURSE Signed: 07/26/2024 14:46 07/26/2024 ADDENDUM STATUS: COMPLETED Community care advise to enter new consult for removal of device. Consult placed and held for provider review and signature if appropriate. /jose cruz/ LUCIA SHERIDAN REGISTERED NURSE Signed: 07/26/2024 15:13 Receipt Acknowledged By: * AWAITING SIGNATURE * WAYNE WHEATLEY [facility]
--- OUTSIDE RECORDS SUMMARY | 2024-08-16 17:49 | XMS_ITS | Encounter Summary ---
Author Name [facility] [place] Address [address] [place] [address] Care Team Providers Care Publications Designer Name Role Phone WAYNE WHEATLEY Primary Care [...] to Policy [facility]) MEDICARE ADVANTAGE [facility] ([facility]) Aug 25, 2001 [facility]) [id number] DOMADRIANA SALINAS JOHN PATIENT MEDICARE ([place]) MEDICARE (M) PART A Oct 23, 2016 PART A [id number] QUE GELLER PATIENT MEDICARE ([place]) MEDICARE (M) PART B Oct 23, 2016 PART B [id number] QUE GELLER PATIENT MEDICARE ([place]) MEDICARE (M) PART B Jul 25, 2011 PART B [id number] 97A QUE GELLER PATIENT MEDICARE ([place]) MEDICARE (M) PART B Jul 25, 2011 PART B [id number] 97A QUE GELLER PATIENT MEDICARE ([place]) MEDICARE (M) PART B Jul 25, 2011 PART B [id number] QUE GELLER PATIENT MEDICARE ([place]) MEDICARE (M) PART A Apr 24, 2004 PART A [id number] 97A QUE GELLER PATIENT MEDICARE ([place]) MEDICARE (M) PART A Apr 24, 2004 PART A [id number] [phone] QUE GELLER PATIENT MEDICARE ([place]) MEDICARE (M) PART A Apr 24, 2004 PART A [id number] QUE GELLER PATIENT Selected Encounter This section includes the information on record at [place] for the Encounter. Date/Time Encounter Type Encounter Description Reason Pro vider Source Jul 26, 2024 11:13 AM Outpatient Encounter ADMIN PAT ACTIVTIES (MASNONCT) IHE Encounter Template Text not used by [place] Plan of Treatment: Future Appointments (+ 6 months) and Future Tests (+/- 45 days) The Plan of Treatment section includes future care activities for the patient from all [place] treatmentfacilities. This section includes future appointments and future orders which are active, pending or scheduled. Future Appointments This section includes appointments that were scheduled to occur 6 months from the date of the Encounter, up to a maximum of 20 appointments. The data comes from all [place] treatment facilities. Appointment Date/Time Appointment Type Appointme nt Facility Name Aug 27, 2024 11:00 AM AMBULATORY - MEDICINE [place] [facility] [place] [facility] Sep 04, 2024 04:00 PM AMBULATORY - MEDICINE [facility] Sep 11, 2024 01:00 PM [facility]ATORY - MEDICINE [facility] Oct 24, 2024 04:00 PM AMBULATORY - NONE [place] [facility] [place] [facility] Oct 30, 2024 01:00 PM AMBULATORY - MEDICINE [facility] [place] December 03, 2024 03:30 PM AMBULATORY - MEDICINE [place] [facility] [place] [facility] Dec 26, 2024 01:30 PM AMBULATORY - MEDICINE [place] [facility] [place] [facility] Dec 26, 2024 02:30 PM AMBULATORY - MEDICINE [facility] Active, Pending, and Scheduled Orders This section includes a listing of several types of active, pending, and scheduled orders, including clinic medications orders, diagnostic test orders, procedure orders and consult orders; where the start date of the order is 45 days before the date of the Encounter or 45 days after the date of the Encounter. The data comes from all [place] treatment facilities. Test Date/Time Test Type Test Details Facility Name Jul 27, 2024 09:01 AM Consult Order COMMUNITY CARE-PAIN MANAGEMENT Cons Mortgage Loan Officer's [facility] Aug 07, 2024 09:01 AM Consult Order COMMUNITY CARE-GI GENERAL Cons Mortgage Loan Officer'[facility] Social History: Smoking Status (Most current) and Tobacco Use (All prior to encounter date) This section includes the most current, and the historical, smoking and tobacco- related health factors from the [place] facility where the Encounter took place. Current Smoking Status This section includes the most current smoking, or tobacco-related health factor, from the [place] facility where the Encounter took place. Date/Time Current Smoking Status Comment Facil ity Mar 22, 2024 12:43 PM VA-TOBACCO NEVER USED [facility] Tobacco Use History This section includes a history of the smoking, or tobacco-related health factors, that were collected on or before the date of the Encounter. The data comes from the [place] facility where the Encounter took place. Date/Time Smoking Status/Tobacco Use Comment F acility Mar 26, 2021 02:25 PM VA-TOBACCO NEVER USED [facility] Advance Directives: All historical and current Section Date Range: From patient's date of to the date document was created. This section includes ALL of a patient's completed or amended [place] Advance and Rescinded Directives. The entries below indicate that a directive exists for the patient, but an actual copy is not included with this document. The data comes from all [place] facilities. Date Advance Directives Provider Source Nov 04, 2016 ADVANCE DIRECTIVE [facility] Encounter Notes: All associated encounter [...] Patient Name: KAM GELLER Patient Primary Phone: [phone] Patient Primary Address: [address] [place] [address] Patient : 1950 Patient Age: 73 Call Back Number: [phone] Caller/Recipient Relation to Patient: Self Caller Name: KAM GELLER Scheduling Open Request: None of the above Administrative Administrative Note Reason: Other Administrative Note Comments: IS REQUESTING A RETURN CALL TO RESCHEDULE PCP APPOINTMENT. SOCIAL MEDIA DESIGNER COULD NOT MEET PATIENT REQUEST. HIS CONTACT NUMBER IS [phone]. IMPORTANT: This note was created by [facility] staff. Please do not alert the staff member by adding them as a signer for future communications. Alerts are not monitored by this user. /jose cruz/ MASSIEL QUIÑONEZ VISN 1 CCC MSA Signed: 07/26/2024 11:13 Receipt Acknowledged By: 07/26/2024 11:31 /es/ CAMILLA OLEARY for ТАТЬЯНА PEPPER 07/26/2024 11:43 /es/ GALINDO MCCRACKEN LPN LPN 07/26/2024 ADDENDUM STATUS: COMPLETED Appt r/s to 10/30/24 @ 1pm. /jose cruz/ CAMILLA OLEARY Signed: 07/26/2024 11:32 08/08/2024 ADDENDUM STATUS: COMPLETED AMSA unable to reach the . Left message on voicemail to contact PC to verify home address. Letter came back to the [place]. /es/ RYLEE SPAULDING AMSA Signed: 08/08/2024 13:00 MASSIEL QUIÑONEZ [place] [facility]
--- OUTSIDE RECORDS SUMMARY | 2024-08-16 17:50 | XMS_ITS ---
Author Name [place] Organization [place] Address [address] [place] [id number] Care Team Providers Care Skiagrapher Name Role Phone WAYNE WHEATLEY Primary Care [...] Name Patient's Relationship to Policy [facility]) MEDICARE ADVANTAGE [employer] ([facility]) Aug 25, 2001 [employer] ([facility]) [id number] TIERNEYADRIANA RSUSO PATIENT MEDICARE ([facility]) MEDICARE (M) PART A Oct 23, 2016 PART A [id number] QUE GELLER PATIENT MEDICARE ([facility]) MEDICARE (M) PART B Oct 23, 2016 PART B [id number] QUE GELLER PATIENT MEDICARE ([facility]) MEDICARE (M) PART B Jul 25, 2011 PART B [id number] 97A QUE GELLER PATIENT MEDICARE ([facility]) MEDICARE (M) PART B Jul 25, 2011 PART B [id number] [phone] QUE GELLER PATIENT MEDICARE ([place]) MEDICARE (M) PART B Jul 25, 2011 PART B [id number] QUE GELLER PATIENT MEDICARE ([place]) MEDICARE (M) PART A Apr 24, 2004 PART A [id number] 97A QUE GELLER PATIENT MEDICARE ([place]) MEDICARE (M) PART A Apr 24, 2004 PART A [id number] 97A QUE GELLER PATIENT MEDICARE ([place]) MEDICARE (M) PART A Apr 24, 2004 PART A [id number] QUE GELLER PATIENT Selected Encounter This section includes the information on record at [place] for the Encounter. Date/Time Encounter Type Encounter Description Reason Pro vider Source Aug 03, 2024 01:31 PM Outpatient Encounter PRIMARY CARE/MEDICINE IHE Encounter [...] 27, 2024 11:00 AM AMBULATORY - MEDICINE [place] [facility] [facility] Sep 04, 2024 04:00 PM AMBULATORY - MEDICINE [facility] Sep 11, 2024 01:00 PM AM[facility]ULATORY - MEDICINE [facility] Oct 24, 2024 04:00 PM AMBULATORY - NONE [facility] [place] [facility] Oct 30, 2024 01:00 PM AMBULATORY - MEDICINE [facility] [place] December 03, 2024 03:30 PM AMBULATORY - MEDICINE [place] [facility] [place] [facility] Dec 26, 2024 01:30 PM AMBULATORY - MEDICINE [place] [facility] [place] [facility] Dec 26, 2024 02:30 PM AMBULATORY - MEDICINE [facility] Active, Pending, and Scheduled Orders This section [...] AM Consult Order COMMUNITY CARE-PAIN MANAGEMENT Cons 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 The data comes from the [place] facility where the Encounter took place. Date/Time Smoking Status/Tobacco Use Comment F acility Mar 26, 2021 02:25 PM [place]-TOBACCO NEVER USED [facility] Advance Directives: All historical and current [...] Nov 04, 2016 ADVANCE DIRECTIVE RONY URRUTIA [facility] Encounter Notes: All associated encounter notes This section contains the clinical notes associated to the Encounter. Date/Time Encounter Note(s) Provider Source Aug 03, 2024 01:36 PM ADMINISTRATIVE NOT E: LOCAL TITLE: ADMINISTRATIVE NOTE STANDARD TITLE: ADMINISTRATIVE NOTE DATE OF NOTE: AUG 03, 2024@13:36 ENTRY DATE: AUG 03, 2024@13:36:23 AUTHOR: LUCIA SHERIDAN EXP COSIGNER: URGENCY: STATUS: COMPLETED Consult requested via right fax for continuation of care- Gastroenterology From [facility] for follow-up on gastroparesis. Appt scheduled for 12/03/24 @ [id number]. Consult placed, held for provider review and signature if appropriate. /jose cruz/ LUCIA SHERIDAN REGISTERED NURSE Signed: 08/03/2024 13:39 LUCIA SHERIDAN [facility]
--- OUTSIDE RECORDS SUMMARY | 2024-08-16 17:50 | XMS_ITS | Encounter Summary ---
Author Name [facility] [place] Organization [place] Address [address] [place] [address] Care Team Providers Care Burn Out Scarfing Operator Name Role Phone WAYNE WHEATLEY Primary [...] Patient's Relationship to Policy [facility] MEDICARE ADVANTAGE [facility] ([facility]) Aug 25, 2001 [facility] ([place]) [id number] DOMADRIANA SALINAS JOHN PATIENT MEDICARE ([place]) MEDICARE (M) PART A Oct 23, 2016 PART A [id number] QUE GELLER PATIENT MEDICARE ([place]) MEDICARE (M) PART B Oct 23, 2016 PART B [id number] QUE GELLER PATIENT MEDICARE ([place]) MEDICARE ([place]) PART B Jul 25, 2011 PART B [id number] 97A QUE GELLER PATIENT MEDICARE ([place]) MEDICARE ([place]) PART B Jul 25, 2011 PART B [id number] 97A QUE GELLER PATIENT MEDICARE ([place]) MEDICARE (M) PART B Jul 25, 2011 PART B [id number] QUE GELLER PATIENT MEDICARE ([place]) MEDICARE (M) PART A Apr 24, 2004 PART A [id number] 97A QUE GELLER PATIENT MEDICARE ([place]) MEDICARE (M) PART A Apr 24, 2004 PART A [id number] 97A QUE GELLER PATIENT MEDICARE ([place]) MEDICARE (M) PART A Apr 24, 2004 PART A [id number] QUE GELLER PATIENT Selected Encounter This section includes the information on record at [place] for the Encounter. Date/Time Encounter Type Encounter Description Reason Pro vider Source Aug 09, 2024 11:45 AM Outpatient Encounter ADMIN PAT ACTIVTIES (MASNONCT) [...] 27, 2024 11:00 AM AMBULATORY - MEDICINE [place] [facility] [place] [facility] Sep 04, 2024 04:00 PM AMBULATORY - MEDICINE [facility] Sep 11, 2024 01:00 PM AMBULATORY - MEDICINE [facility] Oct 24, 2024 04:00 PM AMBULATORY - NONE [place] [facility] [place] [facility] Oct 30, 2024 01:00 PM AMBULATORY - MEDICINE [facility] [place] December 03, 2024 03:30 PM AMBULATORY - MEDICINE [place] [facility] [place] [facility] Dec 26, 2024 01:30 PM AMBULATORY - MEDICINE [place] [facility] [facility] Dec 26, 2024 02:30 PM [facility] Active, Pending, and Scheduled Orders This section includes a listing of several types of active, pending, and scheduled orders, including clinic medications orders, diagnostic test orders, procedure orders and consult orders; where the start date of the order is 45 days before the date of the Encounter or 45 days after the date of the Encounter. The data comes from all [place] treatment facilities. Test Date/Time Test Type Test Details Facility Name Jul 27, 2024 09:01 AM Consult Order COMMUNITY CARE-PAIN MANAGEMENT Cons Power Brake Operator's [facility] Aug 07, 2024 09:01 AM Consult Order COMMUNITY CARE-GI GENERAL Cons Power Brake Operator'[facility] Social History: Smoking Status (Most current) and Tobacco Use (All prior to encounter date) This section includes the most current, and the historical, smoking and tobacco- related health factors from the [place] facility where the Encounter took place. Current Smoking Status This section includes the most current smoking, or tobacco-related health factor, from the [place] facility where the Encounter took place. Date/Time Current Smoking Status Comment Facil ity Mar 22, 2024 12:43 PM VA-TOBACCO NEVER USED [facility] Tobacco Use History This section includes a history of the smoking, or tobacco-related health factors, that were collected on or before the date of the Encounter. The data comes from the [place] facility where the Encounter took place. Date/Time Smoking Status/Tobacco Use Comment F acility Mar 26, 2021 02:25 PM VA-TOBACCO NEVER USED [facility] Advance Directives: All historical and current Section Date Range: From patient's date of to the date document was created. This section includes ALL of a patient's completed or amended [place] Advance and Rescinded Directives. The entries below indicate that a directive exists for the patient, but an actual copy is not included with this document. The data comes from all [place] facilities. Date Advance Directives Provider Source Nov 04, 2016 ADVANCE DIRECTIVE [facility] Encounter Notes: All associated encounter notes This section contains the clinical notes associated to the Encounter. Date/Time Encounter Note(s) Provider Source Aug 09, 2024 11:45 AM ADMINISTRATIVE NOT E: LOCAL TITLE: CCC: SCHEDULING ADMINISTRATION STANDARD TITLE: ADMINISTRATIVE NOTE DATE OF NOTE: AUG 09, 2024@11:45:30 ENTRY DATE: AUG 09, 2024@11:45:30 AUTHOR: WAYNE CHENEY COSIGNER: URGENCY: STATUS: COMPLETED CCC: SCHEDULING ADMINISTRATION Has ADDENDA Patient Demographics Patient Name: KAM GELLER Patient Primary Phone: [phone] Patient Primary Address: [address] [place] [address] Patient : 1950 Patient Age: 73 Caller/Recipient Relation to Patient: Self Caller Name: KAM GELLER Administrative Administrative Note Reason: Other Administrative Note Comments: The patient is requesting a call back to know if he can be prescribed Oxycodone for his chronic back pain. He stated he didn't want to talk to a ccc nurse and would like to wait to talk with the PACT about the issue. IMPORTANT: This note was created by [facility] Contact Center staff. Please do not alert the staff member by adding them as a signer for future communications. Alerts are not monitored by this user. augusta CHENEY VISN [facility] AMSA Signed: 08/09/2024 11:45 Receipt Acknowledged By: 08/09/2024 11:51 /jose cruz/ LUCIA SHERIDAN REGISTERED NURSE 08/15/2024 10:02 /joes cruz/ GALINDO MCCRACKEN LPN LPN 08/09/2024 ADDENDUM STATUS: COMPLETED Message forwarded to provider to review and advise. has pain mgmt consult in place and has scheduled appt on 08/27/24. /shantel SHERIDAN REGISTERED NURSE Signed: 08/09/2024 11:53 Receipt Acknowledged By: * AWAITING SIGNATURE * WAYNE WHEATLEY DAVID [facility]
== END 2024-08-16 15:29 | disposition home or self-care (01) ==
PROVIDERS: PCP Hospitalist; Visit Provider Anesthesiology
DX: M43.10 Spondylolisthesis, site unspecified (principal); G89.4 Chronic pain syndrome; M51.369 Other intervertebral disc degeneration, lumbar region without mention of lumbar back pain or lower extremity pain; Z45.1 Encounter for adjustment and management of infusion pump; M47.16 Other spondylosis with myelopathy, lumbar region; M47.812 Spondylosis without myelopathy or radiculopathy, cervical region; M47.816 Spondylosis without myelopathy or radiculopathy, lumbar region
CPT/HCPCS: 62368; 99213

== ENCOUNTER → 2024-08-16 14:56 | Outpatient (BNVA) | payer OTHER, SELFPAY | PROVIDERS: PCP Hospitalist; Visit Provider Anesthesiology | DX: M43.10 Spondylolisthesis, site unspecified (principal); M51.360 Other intervertebral disc degeneration, lumbar region with discogenic back pain only; M50.30 Other cervical disc degeneration, unspecified cervical region; M47.812 Spondylosis without myelopathy or radiculopathy, cervical region; M47.816 Spondylosis without myelopathy or radiculopathy, lumbar region; G89.4 Chronic pain syndrome; Z45.1 Encounter for adjustment and management of infusion pump; Z79.891 Long term (current) use of opiate analgesic | CPT/HCPCS: 62368; 99212 ==

== ENCOUNTER 2024-08-23 14:51 | Outpatient (AMB) | payer OTHER, SELFPAY ==
--- NOTE | 2024-08-23 14:53 | MHC.OFFVIS ---
Vital Signs 08/23/24 14:59 Height 5 ft 8 in Weight 195 lb BMI 29.6 BP 139/86 Blood Pressure Location Rt brachial Position Sitting Pulse 102 H Pulse Source Pulse Oximeter Intake Visit Reasons: Pump adjustment Intake Note: Pain today 01/01 Account Services Coordinator Required: No Accompanied by: Self / Same As Patient Allergies No Known Allergies Allergy (Verified 08/16/24 15:06) HPI Comments Details: El is in my office for intrathecal pain pump medication adjustment He reports pain improvement, better mobility better activities of daily living, social interactions. He continues to complains on cramping pain during the nighttime. I increased today continuous dose of the hydromorphone to 270 micro g per day. I will schedule him for pain pump refill with new doses of the medications. Next time I will increase baclofen from 200 micro g to 400 micro g per mL. That effectively will double the baclofen dose. Therefore the total admixture dose will be hydromorphone 2000 micro g per mL, bupivacaine 23 milligrams/mL and baclofen 400 micro g per mL. [facility] Medical History Obesity PTSD (post-traumatic stress disorder) GERD (gastroesophageal reflux disease) Hypercholesteremia Hypothyroid Retrolisthesis of vertebrae Spondylosis, lumbar, with myelopathy Degeneration, intervertebral disc, cervical Disc degeneration, lumbar Chronic pain syndrome Surgical History S/P insertion of spinal cord stimulator History of total left knee replacement Social History Patient Tobacco Use Status: Never used Tobacco Review of Systems Const All systems reviewed & are unremarkable except as noted in HPI and below Physical Exam Vital Signs: Last Vital Signs Pulse 102 H 08/23/24 14:59 BP 139/86 08/23/24 14:59 BMI result Body Mass Index 29.6 Last Vital Signs Pulse 74 06/30/23 17:30 Resp 16 06/30/23 17:30 BP 137/42 L 06/30/23 17:30 Pulse Ox 99 06/30/23 17:30 O2 Del Method Room Air 06/30/23 17:30 BMI result Body Mass Index 27.9 Const General: cooperative, comfortable, no acute distress and alert Orientation/consciousness: oriented to person, oriented to place, oriented to time and patient oriented x3 Resp Effort & Inspection: normal respiratory effort, able to speak in complete sentences, normal respiratory pattern, no audible wheezes, no cough and respiratory effort not decreased Cardio Jugular venous distension: no JVD Back/Spine/Pelvis Thoracic/Lumbar Spine: paraspinal muscle tenderness, thoracic spinal tenderness and lumbar spinal tenderness Neuro General: oriented to person, oriented to place, oriented to time and patient oriented x3 Assessment & Plan Assessment & Plan (1) Retrolisthesis of vertebrae: Code(s): M43.10 - Spondylolisthesis, site unspecified Category: Medical (2) Chronic pain syndrome: Code(s): G89.4 - Chronic pain syndrome Category: Medical (3) Disc degeneration, lumbar: Code(s): M51.36 - Other intervertebral disc degeneration, lumbar region Category: Medical (4) Degeneration, intervertebral disc, cervical: Code(s): M50.30 - Other cervical disc degeneration, unspecified cervical region Category: Medical (5) Spondylosis, lumbar, with myelopathy: Code(s): M47.16 - Other spondylosis with myelopathy, lumbar region Category: Medical Plan: The pump adjustment see as below. (6) Spondylosis of cervical joint without myelopathy: Code(s): M47.812 - Spondylosis without myelopathy or radiculopathy, cervical region Category: Medical Plan: We continue escalation of the opioid medications and baclofen for the patient. He reports some pain improvement specially when he is at rest. However he continues to reports pain with motion as well as spastic pain at night. I will increase the concentration of his baclofen from 200 micro g per mL to 400 micro g per mL. (7) Spondylosis of lumbar region without myelopathy or radiculopathy: Code(s): M47.816 - Spondylosis without myelopathy or radiculopathy, lumbar region Category: Medical Plan Intrathecal pain pump interrogation and dose adjustment. The patient pain pump was interrogated and the dose was changed from 190 micro g of hydromorphone to 270.1 micro g with corresponding doses of baclofen and bupivacaine. Current baclofen dose 27 micro g a day. Coding Level of Care Code Est Pt Level 3 (79667) Procedure Only Diagnoses Retrolisthesis of vertebrae M43.10 Chronic pain syndrome G89.4 Disc degeneration, lumbar M51.36 Degeneration, intervertebral disc, cervical M50.30 Spondylosis, lumbar, with myelopathy M47.16 Spondylosis of cervical joint without myelopathy M47.812 Spondylosis of lumbar region without myelopathy or radiculopathy M47.816
[2024-08-23 14:59] VITALS: BP 139/86; PULSE 102; BMI 29.6
--- OUTSIDE RECORDS SUMMARY | 2024-08-23 18:44 | XMS_ITS | Encounter Summary ---
Author Organization [facility] Address [address] [place] [address] Care Team Providers Care Bottom Finisher Name Role Phone Jean-Claude Ch MD Primary Care Provider + [phone] El Horner PA-C Primary Care Provider [phone] Encounter Details Date Type Department Care Team Description 03/21/2019 Corporate Risk Analyst Report Medical Records [address] [place] [id number] Claude Tovar MD Social History Tobacco Use Types Packs/Day Years Used Date Smoking Tobacco: Never Smokeless Tobacco: Never Alcohol Use Standard Drinks/Week Comments Yes 0 (1 standard drink = 0.6 oz pur e alcohol) occ Sex Assigned at Date Recorded Not on file Job Start Date Occupation Industry Not on file Not on file Not on file documented as of this encounter Plan of Treatment Not on file documented as of this encounter Visit Diagnoses Not on filedocumented in this encounter Care Teams Bottom Finisher Relationship Specialty Start Date End Date Jean-Claude Ch MD [address] [place] [id number] PCP - General 06/24/1993 05/25/21 El Horner PA-C [address] [place] [address] [id number] PCP - General Internal Medicine 05/26/21 documented as of this encounter
--- OUTSIDE RECORDS SUMMARY | 2024-08-23 18:44 | XMS_ITS | Encounter Summary ---
Author Organization [facility] Address [address] [place] [address] Care Team Providers Care Education Site Manager Name Role Phone Jean-Claude Ch MD Primary Care Provider + [phone] El Horner PA-C Primary Care Provider [phone] Encounter Details Date Type Department Care Team Description 02/22/2019 Hospital Medical Records [address] [place] [id number] Claude Tovar MD Social History Tobacco Use [...] on filedocumented in this encounter Care Teams Education Site Manager Relationship Specialty Start Date End Date Jean-Claude Ch MD [address] [place] [id number] PCP - General 06/24/1993 05/25/21 El Horner PA-C [address] [place] [id number] PCP - General Internal Medicine 05/26/21 documented as of this encounter
--- OUTSIDE RECORDS SUMMARY | 2024-08-23 18:45 | XMS_ITS | Encounter Summary ---
Author Organization [facility] Address [address] [place] [address] Care Team Providers Care Vice Chair Name Role Phone Jean-Claude Ch MD Primary Care Provider + [phone] El Horner PA-C Primary Care Provider +1 -[phone] Encounter Details Date Type Department Care Team Description 10/14/2017 Brushing Machine Operator Report Medical Records [address] [place] [address] Pulai, Devyn Social History Tobacco Use Types Packs/Day Years [...] on filedocumented in this encounter Care Teams Vice Chair Relationship Specialty Start Date End Date Jean-Claude Ch MD [address] [place] [address] PCP - General 06/24/1993 05/25/21 El Horner PA-C [address] [place] [address] [phone] PCP - General Internal Medicine 05/26/21 documented as of this encounter
--- OUTSIDE RECORDS SUMMARY | 2024-08-23 18:45 | XMS_ITS | Encounter Summary ---
Author Organization [facility] Address [address] [place] [address] Care Team Providers Care Clinical Sales Consultant Name Role Phone Jean-Claude Ch MD Primary Care Provider +[phone] El Horner PA-C Primary Care Provider +[phone] Reason for Referral * Specialist (Urgent) - Authorized/Booked Specialty Diagnoses / Procedures Referred By Contdanya t Referred To Contact Physiatry Diagnoses Pain syndrome, chronic Procedures REFERRAL TO AUDITOR Jean-Claude Ch MD [address] [place] [address] [address] Referral ID Status Reason Start Date Expiration Date V isits Requested Visits Authorized NOT REQUIRED Authorized/ Booked 09/30/2014 09/30/2015 1 1 Reason for Visit * Reason Onset Date Comments Provider Call Back 09/30/2014 Encounter Details Date Type Department Care Team Description 09/30/2014 Telephone Adult Medicine [address] [address] Jean-Claude Ch MD [address] [place] [address] Provider Call Back Social History Tobacco Use Types Packs/Day Years Used Date Smoking Tobacco: Never Smokeless Tobacco: Never Alcohol Use Standard Drinks/Week Comments Yes 0 (1 standard drink = 0.6 oz pur e alcohol) occ Sex Assigned at Date Recorded Not on file Job Start Date Occupation Industry Not on file Not on file Not on file documented as of this encounter Miscellaneous Notes * Telephone Encounter - Jean-Claude Ch MD - 09/30/2014 4:21 PM EDT Spoke to patient having a lot of increased pain. Already on fairly high-dose narcotics he has seen Dr. Sibley in the past. I think I would like to get his opinion regarding any other options I explained this to the patient * Telephone Encounter - Macrina Cao L.P.N. - 09/30/2014 2:28 PM EDT Pt is on [facility] [place] Please review and advise. * Telephone Encounter - Adela Hernandez - 09/30/2014 2:23 PM EDT Caller requesting call back from provider: Dr Ch Is the caller the patient? YES If caller is not the patient, what is the callers name? N/A Callers relationship to patient? N/A If person calling is not the patient themselves, is there a verbal release in FYI or permanent comments for this person: NO Reason for call back: Pt would like to know if he can have his oxycodone medication increased because he has a lot of pain, please call him back at [phone], thank you Caller offered to speak with the nurse for assistance: NO Response: documented in this encounter Plan of Treatment Not on file documented as of this encounter Visit Diagnoses Diagnosis Pain syndrome, chronic- Primary Chronic pain syndrome documented in this encounter Care Teams Clinical Sales Consultant Relationship Specialty Start Date End Date Jean-Claude Ch MD [address] [place] [address] PCP - General 06/24/1993 05/25/21 El Horner PA-C [address] [place] [address] PCP - General Internal Medicine 05/26/21 documented as of this encounter
--- OUTSIDE RECORDS SUMMARY | 2024-08-23 18:45 | XMS_ITS | Encounter Summary ---
Author Organization [facility] Address [address] [place] [address] Care Team Providers Care Soap Drier Tender Name Role Phone Jean-Claude Ch MD Primary Care Provider + [phone] El Horner PA-C Primary Care Provider +[phone] Encounter Details Date Type Department Care Team Description 11/07/2017 Cephalometric Analyst Report Medical Records [address] [place] [address] Pulai, Devyn Social History Tobacco Use Types [...] on filedocumented in this encounter Care Teams Soap Drier Tender Relationship Specialty Start Date End Date Jean-Claude Ch MD [address] [place] [address] PCP - General 06/24/1993 05/25/21 El Horner PA-C [address] [place] [address] [phone] PCP - General Internal Medicine 05/26/21 documented as of this encounter
--- OUTSIDE RECORDS SUMMARY | 2024-08-23 18:45 | XMS_ITS | Encounter Summary ---
Author Organization [facility] Address [address] [place] [address] Care Team Providers Care Tactical Air Control Party Manager Name Role Phone Jean-Claude Ch MD Primary Care Provider + [phone] El Horner PA-C Primary Care Provider +[phone] Encounter Details Date Type Department Care Team Description 12/27/2017 Civil Engineering Technician Report Medical Records [address] [place] [address] Abstract, Provider Social History Tobacco Use Types Packs/Day Years [...] on filedocumented in this encounter Care Teams Tactical Air Control Party Manager Relationship Specialty Start Date End Date Jean-Claude Ch MD [address] [place] [address] PCP - General 06/24/1993 05/25/21 El Horner PA-C [address] [place] [address] [phone] PCP - General Internal Medicine 05/26/21 documented as of this encounter
--- OUTSIDE RECORDS SUMMARY | 2024-08-23 18:45 | XMS_ITS | Encounter Summary ---
Author Organization [facility] Address [address] [place] [address] Care Team Providers Care Early Morning Babysitter Name Role Phone Jean-Claude Ch MD Primary Care Provider +1 [phone] El Horner PA-C Primary Care Provider +1 [phone] Reason for Visit * Reason Onset Date Comments Medication 03/29/2014 Encounter Details Date Type Department Care Team Description 03/29/2014 Telephone Adult Medicine [address] [phone] Jean-Claude Ch MD [address] [place] [address] [phone] Medication Social History Tobacco Use Types Packs/Day Years [...] encounter Miscellaneous Notes * Telephone Encounter - Ale Ayoub R.N. - 03/29/2014 3:54 PM EDT Juliana SAINI at [facility] given Dr. Ch's response. She understands the instructions and is comfortable with them. * Telephone Encounter - Ingrid Allen 03/29/2014 3:23 PM EDT Juliana is calling back. * Telephone Encounter - Ale Ayoub R.N. - 03/29/2014 2:51 PM EDT Called Juliana. Got unidentified voicemail. Left message for Juliana to return call * Telephone Encounter - Jean-Claude Ch MD - 03/29/2014 2:35 PM EDT That is correct he is actually on 250 micrograms of thyroid he is on a 200 mcg pill and a 50 mcg pill together * Telephone Encounter - Ivonne Whitehead R.N. - 03/29/2014 2:29 PM EDT Pt is in the hospital and PA from [facility] is rounding, needs to order post meds and is question what dose of levothyroxine pt is taking? Chart lists both 200 Mcg and 50 Mcg? * Telephone Encounter - Najma Cramer - 03/29/2014 2:17 PM EDT Symptoms patient is presenting: Juliana CREDENTIALING MANAGER @ [facility] is calling to verify this patient's dosage on Levothyroxine. The patient is in [facility]. How long has patient had these symptoms?: PCP: Jean-Claude Ch [place] / [place] / Product Type: [place]ARE [id number] documented in this encounter Plan of Treatment Not on file documented as of this encounter Visit Diagnoses Not on filedocumented in this encounter Care Teams Early Morning Babysitter Relationship Specialty Start Date End Date Jean-Claude Ch MD [address] [place] [address] PCP - General 06/24/1993 05/25/21 El Horner PA-C [address] [place] [address] PCP - General Internal Medicine 05/26/21 documented as of this encounter
--- OUTSIDE RECORDS SUMMARY | 2024-08-23 18:45 | XMS_ITS | Encounter Summary ---
Author Organization [facility] Address [address] [place] [address] Care Team Providers Care Blocker And Polisher Gold Wheel Name Role Phone Jean-Claude Ch MD Primary Care Provider +[phone] El Horner PA-C Primary Care Provider +1 [phone] Reason for Visit * Reason Onset Date Comments TEST RESULTS 01/09/2019 Encounter Details Date Type Department Care Team Description 01/09/2019 Telephone Adult Medicine [address] [phone] Jean-Claude Ch MD [address] [place] [address] [phone] TEST RESULTS Social History Tobacco Use Types Packs/Day Years [...] encounter Miscellaneous Notes * Telephone Encounter - Jocelyn Mendoza M.A. - 01/10/2019 3:39 PM EDT Ivonne called patient today and didn't get a respond from patient. * Telephone Encounter - Gayle Carmichael M.A. - 01/09/2019 1:48 PM EDT Pt is returning [employer]'s phone call. * Telephone Encounter - Paula Delacruz - 01/09/2019 1:19 PM EDT Caller requesting call back from provider: Yohannes Newman Is the caller the patient? YES Reason for call back: patient returning call about ct scan results 01-08-19 Caller offered to speak with the nurse for assistance: YES Response: Patient offered to speak with nurse for assistance and patient agreed. Message forwarded to nurse. documented in this encounter Plan of Treatment Not on file documented as of this encounter Visit Diagnoses Not on filedocumented in this encounter Care Teams Blocker And Polisher Gold Wheel Relationship Specialty Start Date End Date Jean-Claude Ch MD [address] [place] [address] PCP - General 06/24/1993 05/25/21 El Horner PA-C [address] [place] [address] [phone] PCP - General Internal Medicine 05/26/21 documented as of this encounter
--- OUTSIDE RECORDS SUMMARY | 2024-08-23 18:45 | XMS_ITS | Encounter Summary ---
Author Organization [facility] Address [address] [place] [address] Care Team Providers Care Brakeshoe Repairer Name Role Phone Jean-Claude Ch MD Primary Care Provider + [phone] El Horner PA-C Primary Care Provider +[phone] Encounter Details Date Type Department Care Team Description 10/26/2018 Sweatband Decorating Machine Operator Report Medical Records [address] [place] [address] Regina Tello Social History Tobacco Use Types Packs/Day Years [...] on filedocumented in this encounter Care Teams Brakeshoe Repairer Relationship Specialty Start Date End Date Jean-Claude Ch MD [address] [place] [address] PCP - General 06/24/1993 05/25/21 El Horner PA-C [address] [place] [address] [phone] PCP - General Internal Medicine 05/26/21 documented as of this encounter
--- OUTSIDE RECORDS SUMMARY | 2024-08-23 18:45 | XMS_ITS | Encounter Summary ---
Author Organization [facility] Address [address] [place] [address] Care Team Providers Care Renal Technician Name Role Phone Jean-Claude Ch MD Primary Care Provider + [phone] El Horner PA-C Primary Care Provider +[phone] Encounter Details Date Type Department Care Team Description 08/07/2018 Bevel Mill Operator Report Medical Records [address] [place] [address] Anyi Newton NP Social History Tobacco Use Types Packs/Day Years [...] on filedocumented in this encounter Care Teams Renal Technician Relationship Specialty Start Date End Date Jean-Claude Ch MD [address] [place] [address] PCP - General 06/24/1993 05/25/21 El Horner PA-C [address] [place] [address] [phone] PCP - General Internal Medicine 05/26/21 documented as of this encounter
--- OUTSIDE RECORDS SUMMARY | 2024-08-23 18:45 | XMS_ITS | Encounter Summary ---
Author Organization [facility] Address [address] [place] [address] Care Team Providers Care Router Operator Radial Name Role Phone Jean-Claude Ch MD Primary Care Provider + [phone] El Horner PA-C Primary Care Provider +[phone] Encounter Details Date Type Department Care Team Description 08/16/2019 Wink Cutter Operator Report Medical Records [address] [place] [address] Calixto Peña DPM Social History Tobacco Use Types Packs/Day Years [...] on filedocumented in this encounter Care Teams Router Operator Radial Relationship Specialty Start Date End Date Jean-Claude Ch MD [address] [place] [address] PCP - General 06/24/1993 05/25/21 El Horner PA-C [address] [place] [address] [phone] PCP - General Internal Medicine 05/26/21 documented as of this encounter
--- OUTSIDE RECORDS SUMMARY | 2024-08-23 18:45 | XMS_ITS | Encounter Summary ---
Author Organization [facility] Address [address] [place] [address] Care Team Providers Care Wildlife Conservation Professor Name Role Phone Jean-Claude Ch MD Primary Care Provider +1 [phone] El Horner PA-C Primary Care Provider +1 [phone] Reason for Visit * Reason Onset Date Comments medication problems 06/27/2014 Encounter Details Date Type Department Care Team Description 06/27/2014 Telephone Adult Medicine [address] [phone] Jean-Claude Ch MD [address] [place] [address] [phone] medication problems Social History Tobacco Use Types Packs/Day Years [...] Telephone Encounter - Jean-Claude Ch MD - 07/05/2014 3:30 PM EST Spoke to patient. Apparently by next prescription everything will back to the old regimen * Telephone Encounter - Jean-Claude Ch MD - 07/02/2014 3:21 PM EST Called on Tuesday no answer * Telephone Encounter - Paula Delacruz - 07/01/2014 4:38 PM EST Patient returning call can be reached on cell # [phone] * Telephone Encounter - Jean-Claude Ch MD - 06/27/2014 1:57 PM EST I tried to call patient left message no answer. I did speak with pharmacist patient has been getting extra pain medicines from orthopedics post hip replacement. This was expected however he has required fairly significant dosages in fact getting 330 mg oxycodone in the past month for breakthrough pa in. I am still waiting to touch base with him to find out what the current situation is as ultimately he will need to be tapered down * Telephone Encounter - Macrina GoncalvesP.N. - 06/27/2014 10:04 AM EST Pharmacist IS CONCERNED states he is jumping all over different [facility] Has been getting oxycodone 30 #100 , 06/10/ #100 ,05/28 # 100 05/10/ #50 04/27 #50 ect Neos Since 04/10/2014 #100 Every 2 weeks PLUS HIS [facility] MEDS Also [facility] in [place] PLEASE PULL RETURNED TELEPHONE EQUIPMENT APPRAISER * Telephone Encounter - Gila Lemon - 06/27/2014 9:31 AM EST What is the name of the medication patient is having a problem with?: OxyCODONE HCl ER (OXYCONTIN) 80 MG Tablet Extended Release 12 hour Abuse-Deterrent What is the problem?: pt is being difficult at the pharmacy Is the patient calling about the problem? NO If the patient is not the caller who is? Adela from [facility], please call her before 2pm Is this a NEW medication?: NO How long has the patient been taking this medication? Who prescribed this medication for the patient? Jean-Claude Ch Who is patients PCP?: Jean-Claude Ch [place] / [place] / Product Type: [place]ARE [id number] documented in this encounter Plan of Treatment Not on file documented as of this encounter Visit Diagnoses Not on filedocumented in this encounter Care Teams Wildlife Conservation Professor Relationship Specialty Start Date End Date Jean-Claude Ch MD [address] [place] [address] PCP - General 06/24/1993 05/25/21 El Horner PA-C [address] [place] [address] PCP - General Internal Medicine 05/26/21 documented as of this encounter
--- OUTSIDE RECORDS SUMMARY | 2024-08-23 18:45 | XMS_ITS | Encounter Summary ---
Author Organization [facility] Address [address] [place] [address] Care Team Providers Care Insurance Policy Clerk Name Role Phone Jean-Claude Ch MD Primary Care Provider + [phone] El Horner PA-C Primary Care Provider +[phone] Encounter Details Date Type Department Care Team Description 01/04/2019 Orders Only Radiology - [address] [phone] Radiology, Authorizing Screening for diabetes mellitus (Primary Dx) Social History Tobacco Use Types Packs/Day Years [...] on file documented as of this encounter Results * CREATININE, BLOOD ASSAY (01/05/2019 11:26 AM EDT) CREAT 1.01 0.7 - 1.3 mg/dL 01/05/2019 4:39 PM EDT [facility] GLOMERULAR FILTRATION RATE > 60 01/05/2019 4:39 PM EDT [facility] Comment: If patient is -Portuguese, multiply result by 1.21 Chronic Kidney Disease: < 60 ml/min/1.73 square meters Kidney Failure: < 15 ml/min/1.73 square meters 01/05/2019 11:2 6 AM EDT 01/05/2019 11:26 AM EDT Authorizing Radiology [facility] documented in this encounter Visit Diagnoses Diagnosis Screening for diabetes mellitus- Primary documented in this encounter Care Teams Insurance Policy Clerk Relationship Specialty Start Date End Date Jean-Claude Ch MD [address] [place] [address] PCP - General 06/24/1993 05/25/21 El Horner PA-C [address] [place] [address] PCP - General Internal Medicine 05/26/21 documented as of this encounter
--- OUTSIDE RECORDS SUMMARY | 2024-08-23 18:45 | XMS_ITS | Encounter Summary ---
Author Organization [facility] Address [address] [place] [address] Care Team Providers Care Transportation Department Head Name Role Phone Jean-Claude Ch MD Primary Care Provider + [phone] El Horner PA-C Primary Care Provider + [phone] Encounter Details Date Type Department Care Team Description 08/25/2017 Manager Digital Ad Operations Report Medical Records [address] [place] [address] Geri Hargrove MD [address] [place] [address] Social History Tobacco Use Types Packs/Day Years [...] on filedocumented in this encounter Care Teams Transportation Department Head Relationship Specialty Start Date End Date Jean-Claude Ch MD [address] [place], [place] [phone] PCP - General 06/24/1993 05/25/21 El Horner PA-C [address] [place] [address] [phone] PCP - General Internal Medicine 05/26/21 documented as of this encounter
--- OUTSIDE RECORDS SUMMARY | 2024-08-23 18:45 | XMS_ITS | Encounter Summary ---
Author Organization [facility] Address [address] [place] [address] Care Team Providers Care Quantitative Analyst Name Role Phone Jean-Claude Ch MD Primary Care Provider + [phone] El Horner PA-C Primary Care Provider +1 [phone] Encounter Details Date Type Department Care Team Description 09/10/2014 AUTO TIRE RECAPPER/MassPat Report Medical Records [address] [place] [address] Abstract, Provider Social History Tobacco Use Types [...] on filedocumented in this encounter Care Teams Quantitative Analyst Relationship Specialty Start Date End Date Jean-Claude Ch MD [address] [place] [address] PCP - General 06/24/1993 05/25/21 El Horner PA-C [address] [place] [address] PCP - General Internal Medicine 05/26/21 documented as of this encounter
--- OUTSIDE RECORDS SUMMARY | 2024-08-23 18:45 | XMS_ITS | Encounter Summary ---
Author Organization [facility] Address [address] [place] [address] Care Team Providers Care Sandblast Operator Name Role Phone Jean-Claude Ch MD Primary Care Provider +1 [phone] El Horner PA-C Primary Care Provider +1 -[phone] Encounter Details Date Type Department Care Team Description 10/23/2014 Die Attaching Machine Tender Report Medical Records [address] [place] [address] Jimy Cuevas MD Social History Tobacco Use Types Packs/Day [...] on filedocumented in this encounter Care Teams Sandblast Operator Relationship Specialty Start Date End Date Jean-Claude Ch MD [address] [place] [address] PCP - General 06/24/1993 05/25/21 El Horner PA-C [address] [place] [address] [phone] PCP - General Internal Medicine 05/26/21 documented as of this encounter
--- OUTSIDE RECORDS SUMMARY | 2024-08-23 18:45 | XMS_ITS | Encounter Summary ---
Author Organization [facility] Address [address] [place] [address] Care Team Providers Care Drag Seiner Name Role Phone Jean-Claude Ch MD Primary Care Provider +1 [phone] El Horner PA-C Primary Care Provider +1 [phone] Encounter Details Date Type Department Care Team Description 11/19/2014 Controlled Substance Plan Medical Records [address] [place] [address] Abstract, Provider Social History Tobacco Use Types [...] on filedocumented in this encounter Care Teams Drag Seiner Relationship Specialty Start Date End Date Jean-Claude Ch MD [address] [place] [address] PCP - General 06/24/1993 05/25/21 El Horner PA-C [address] [place] [address] PCP - General Internal Medicine 05/26/21 documented as of this encounter
--- OUTSIDE RECORDS SUMMARY | 2024-08-23 18:45 | XMS_ITS | Encounter Summary ---
Author Organization [facility] Address [address] [place] [address] Care Team Providers Care Java Lead Developer Name Role Phone Jean-Claude Ch MD Primary Care Provider +1 [phone] El Horner PA-C Primary Care Provider +1 [phone] Reason for Visit * Reason Onset Date Comments Call From Pharmacy 2011 Encounter Details Date Type Department Care Team Description 2011 Telephone Medicine/Pediatrics - [address] [phone] Edward García MD Call From Pharmacy Social History Tobacco Use Types Packs/Day Years Used Date Smoking Tobacco: Never Alcohol Use Standard Drinks/Week Comments Yes 0 (1 standard drink = 0.6 oz pur e alcohol) occ Sex Assigned at Date Recorded Not on file Job Start Date Occupation Industry Not on file Not on file Not on file documented as of this encounter Miscellaneous Notes * Telephone Encounter - Edward García MD - 11/02/2011 4:15 PM EDT I have a recollection of signing something, but do not exactly recall. I don't have anything on my desk at this time. * Telephone Encounter - Tatiana Wakefield M.A. - 11/02/2011 4:[address] García have you seen anything regarding this? * Telephone Encounter - Tami GoncalvesPEthanNEthan - 2011 2:48 PM EDT Do you have this ,was sent to [facility] fax number? * Telephone Encounter - Lakeisha Downs - 2011 1:18 PM EDT [facility] CALLING. THEY STATE THAT THEY HAVE SENT A SCRIPT BACK TO DR GARCÍA AT [phone] SEVERAL TIMES AND THEY NEED TO SPEAK WITH SOMEONE ABOUT THIS. THEY STATE THAT DR GARCÍA FILLED OUT NGUYEN INFO ON THE SCRIPT THEY RECEIVED AND THEY NEED DR GARCÍA TO INITIAL IT. documented in this encounter Plan of Treatment Not on file documented as of this encounter Visit Diagnoses Not on filedocumented in this encounter Care Teams Java Lead Developer Relationship Specialty Start Date End Date Jean-Claude Ch MD [address] [place] [address] PCP - General 06/24/1993 05/25/21 El Horner PA-C [address] [place] [address] PCP - General Internal Medicine 05/26/21 documented as of this encounter
--- OUTSIDE RECORDS SUMMARY | 2024-08-23 18:46 | XMS_ITS | Encounter Summary ---
Author Organization [facility] Address [address] [place] [address] Care Team Providers Care Automotive Title Clerk Name Role Phone El Horner PA-C Primary Care Provider +1 -[phone] Reason for Visit * Reason Onset Date Comments TEST RESULTS 03/04/2022 Encounter Details Date Type Department Care Team Description 03/04/2022 Telephone Adult Medicine [address] [address] El Horner PA-C [address] [place] [address] [id number] TEST RESULTS Social History Tobacco Use Types [...] encounter Miscellaneous Notes * Telephone Encounter - Rosi Genao M.A. - 03/05/2022 9:43 AM EDT Letter and Echo report mailed to patient * Telephone Encounter - El Horner PA-C - 03/04/2022 7:28 PM EDT Ok will print please mail to patient * Telephone Encounter - Gayle Carmichael M.A. - 03/04/2022 4:23 PM EDT Pt looking for echo results from 01/19/22 Would also like a copy mailed to his home. * Telephone Encounter - Marco A Guadalupe - 03/04/2022 4:18 PM EDT Inform patient: ANY URGENT OR ABNORMAL RESULTS WIILL RESULT IN A CALL BACK TO THE PATIENT SERA. Type of test: :ECHO COMPLETE WITH CONTRAST Date test was performed: 01/19/22 Where was the test performed: [facility] Who ordered this test?: [facility] Is the doctor here today?: YES Can the message wait until the doctor returns?: YES Patient want results to be mail [address] [place] [address] IF PATIENT'S PCP IS NOT IN INSTRUCT PATIENT THAT THEY WILL RECEIVE A CALL BACK WHEN THE PCP IS IN THE OFFICE NEXT. documented in this encounter Plan of Treatment Not on file documented as of this encounter Visit Diagnoses Not on filedocumented in this encounter Care Teams Automotive Title Clerk Relationship Specialty Start Date End Date El Horner PA-C [address] [place] [address] PCP - General Internal Medicine 05/26/21 documented as of this encounter
--- OUTSIDE RECORDS SUMMARY | 2024-08-23 18:46 | XMS_ITS | Encounter Summary ---
Author Organization [facility] Address [address] [place] [address] Care Team Providers Care Ornamental Metal Fabricator Apprentice Name Role Phone Jean-Claude Ch MD Primary Care Provider +1 [phone] El Horner PA-C Primary Care Provider + -[phone] Encounter Details Date Type Department Care Team Description 06/27/2013 Stock Broker Supervisor Report Medical Records [address] [place] [address] Iker Ram MD Social History Tobacco Use Types Packs/Day [...] on filedocumented in this encounter Care Teams Ornamental Metal Fabricator Apprentice Relationship Specialty Start Date End Date Jean-Claude Ch MD [address] [place] [address] PCP - General 06/24/1993 05/25/21 El Horner PA-C [address] [place] [address] [phone] PCP - General Internal Medicine 05/26/21 documented as of this encounter
--- OUTSIDE RECORDS SUMMARY | 2024-08-23 18:46 | XMS_ITS | Encounter Summary ---
Author Organization [facility] Address [address] [place] [address] Care Team Providers Care Bench Molder Name Role Phone Jean-Claude Ch MD Primary Care Provider + [phone] El Horner PA-C Primary Care Provider +1 [phone] Encounter Details Date Type Department Care Team Description 10/05/2013 Controlled Substance Plan Medical Records [address] [place] [address] Abstract, Provider Social History Tobacco Use Types [...] on filedocumented in this encounter Care Teams Bench Molder Relationship Specialty Start Date End Date Jean-Claude Ch MD [address] [place] [address] PCP - General 06/24/1993 05/25/21 El Horner PA-C [address] [place] [address] PCP - General Internal Medicine 05/26/21 documented as of this encounter
--- OUTSIDE RECORDS SUMMARY | 2024-08-23 18:46 | XMS_ITS | Encounter Summary ---
Author Organization [facility] Address [address] [place] [address] Care Team Providers Care Boiler Maker Name Role Phone Jean-Claude Ch MD Primary Care Provider +1 [phone] El Horner PA-C Primary Care Provider +1 [phone] Encounter Details Date Type Department Care Team Description 01/14/2014 Tobacco Checkout Clerk Report Medical Records [address] [place] [address] Jimy Cuevas MD Social History Tobacco Use [...] on filedocumented in this encounter Care Teams Boiler Maker Relationship Specialty Start Date End Date Jean-Claude Ch MD [address] [place] [address] PCP - General 06/24/1993 05/25/21 El Horner PA-C [address] [place] [address] [phone] PCP - General Internal Medicine 05/26/21 documented as of this encounter
--- OUTSIDE RECORDS SUMMARY | 2024-08-23 18:46 | XMS_ITS | Encounter Summary ---
Author Organization [facility] Address [address] [place] [address] Care Team Providers Care Teacher Specialist Name Role Phone Jean-Claude Ch MD Primary Care Provider +1 [phone] El Horner PA-C Primary Care Provider +1 -[phone] Encounter Details Date Type Department Care Team Description 07/26/2013 Hospital Medical Records [address] [place] [address] Liss Steinmelaniemica Social History Tobacco Use Types Packs/Day Years [...] on filedocumented in this encounter Care Teams Teacher Specialist Relationship Specialty Start Date End Date Jean-Claude Ch MD [address] [place] [address] PCP - General 06/24/1993 05/25/21 El Horner PA-C [address] [place] [address] [phone] PCP - General Internal Medicine 05/26/21 documented as of this encounter
--- OUTSIDE RECORDS SUMMARY | 2024-08-23 18:46 | XMS_ITS | Encounter Summary ---
Author Organization [facility] Address [address] [place] [address] Care Team Providers Care Able Bodied Watchman Name Role Phone Jean-Claude Ch MD Primary Care Provider + [phone] El Horner PA-C Primary Care Provider +1 [phone] Encounter Details Date Type Department Care Team Description 12/15/2016 Footwear Sales Leader Report Medical Records [address] [place] [address] Alf Mak Social History Tobacco Use Types Packs/Day Years [...] on filedocumented in this encounter Care Teams Able Bodied Watchman Relationship Specialty Start Date End Date Jean-Claude Ch MD [address] [place] [address] PCP - General 06/24/1993 05/25/21 El Horner PA-C [address] [place] [address] [phone] PCP - General Internal Medicine 05/26/21 documented as of this encounter
--- OUTSIDE RECORDS SUMMARY | 2024-08-23 18:46 | XMS_ITS | Encounter Summary ---
Author Organization [facility] Address [address] [place] [address] Care Team Providers Care Hall Director Name Role Phone Jean-Claude Ch MD Primary Care Provider + [phone] El Horner PA-C Primary Care Provider +1 [phone] Encounter Details Date Type Department Care Team Description 09/21/2005 Hospital Medical Records [address] [place] [address] Abstract, Provider Social History Tobacco Use Types [...] on filedocumented in this encounter Care Teams Hall Director Relationship Specialty Start Date End Date Jean-Claude Ch MD [address] [place] [address] PCP - General 06/24/1993 05/25/21 El Horner PA-C [address] [place] [address] PCP - General Internal Medicine 05/26/21 documented as of this encounter
--- OUTSIDE RECORDS SUMMARY | 2024-08-23 18:46 | XMS_ITS | Encounter Summary ---
Author Organization [facility] Address [address] [place] [address] Care Team Providers Care Passenger Service Agent Name Role Phone Jean-Claude Ch MD Primary Care Provider + [phone] El Horner PA-C Primary Care Provider +1 [phone] Encounter Details Date Type Department Care Team Description 11/19/2020 Concrete Handler Report Medical Records [address] [place] [address] Rodrick Mckeon Social History Tobacco Use Types Packs/Day Years [...] on filedocumented in this encounter Care Teams Passenger Service Agent Relationship Specialty Start Date End Date Jean-Claude Ch MD [address] [place] [address] 575[address] PCP - General 06/24/1993 05/25/21 El Horner PA-C [address] [place] [address] [phone] PCP - General Internal Medicine 05/26/21 documented as of this encounter
--- OUTSIDE RECORDS SUMMARY | 2024-08-23 18:46 | XMS_ITS | Encounter Summary ---
Author Organization [facility] Address [address] [place] [address] Care Team Providers Care Quality Control Checker Name Role Phone Jean-Claude Ch MD Primary Care Provider +1 [phone] El Horner PA-C Primary Care Provider +1 [phone] Encounter Details Date Type Department Care Team Description 03/10/2010 Congressional Representative Report Medical Records [address] [place] [address] Cali[place]o [place], PAULA Social History Tobacco Use Types Packs/Day Years [...] on filedocumented in this encounter Care Teams Quality Control Checker Relationship Specialty Start Date End Date Jean-Claude Ch MD [address] [place] [address] PCP - General 06/24/1993 05/25/21 El Horner PA-C [address] [place] [address] [phone] PCP - General Internal Medicine 05/26/21 documented as of this encounter
--- OUTSIDE RECORDS SUMMARY | 2024-08-23 18:46 | XMS_ITS | Clinical Summary ---
Author Organization [facility] [place] [facility] Address [address] [place] [address] Care Team Providers Care Recruiting Team Lead Name Role Phone NixonmeyabdullahiEl PA-C Primary Care Provider +1 [phone] Allergies No known active allergies Medications Medication Sig Dispensed Refills Start Date End Date Status PRILOSEC 20 MG OR CPDR 1 po qd 0 Active ASPIRIN 81 mg daily 0 Active FISH OIL OR 750 mg qd 0 Active PRESERVISION AREDS OR 1 tab bid 0 06/23/2007 Act anita DIOCTYL S.S. 100 MG OR CAPS 2 CAPSULES DAILY 0 Active Polyethylene Glycol 3350 (MIRALAX OR) prn 0 Active Calcium-Vitamin D (OSCAL 500/200 D-3) 500 MG TABS 1 TABLET DAILY 0 Active paroxetine (PAXIL) 40 MG tablet Take 1 Tab by mouth daily. 30 Tab 0 02/04/2010 Active Sennosides-Docusate Sodium (SENNA S OR) Take 2 tablets by mouth. Twice a day 0 Active levothyroxine (SYNTHROID) 200 MCG tablet Take 1 Tab by mouth daily. 30 Tab 11 03/15/2014 Active levothyroxine (SYNTHROID, LEVOTHROID) 50 MCG tablet Take 1 Tab by mouth daily. 30 Tab 11 03/15/2014 Active meloxicam (MOBIC) 15 MG tablet Take 1 Tab by mouth daily. 30 Tab 11 03/15/2014 Active atorvastatin (LIPITOR) 20 MG tablet Take 1 Tab by mouth daily. 90 Tab 1 02/20/2019 Active gabapentin (NEURONTIN) 300 MG capsule Take 1 Cap by mouth 3 times daily. 90 Cap 5 06/26/2020 Active betamethasone valerate (VALISONE) 0.1 % cream APPLY SPARINGLY TO AFFECTED AREA TWICE DAILY 30 g 0 11/12/2022 Active Active Problems Problem Noted Date Gastroparesis related to opioid therapy 12/11/2021 Hypertension 02/15/2019 Hx of inadequate colonoscopy 06/05/2015 Overview: Screening colonoscopy attempted x 2 during 2014 at the [facility]. Suboptimal bowel prep both times. Consider Cologuard testing 2019. Mixed hyperlipidemia 09/24/2014 Medical marijuana use 08/02/2013 Overview: Medical marijuana prescription issued by Marcia Palomino M.D. and to be followed by her. Radiculitis, cervical 09/21/2010 Rotator cuff syndrome 09/21/2010 Adhesive capsulitis 08/17/2010 Insomnia 01/16/2010 Hip pain 09/10/2009 Degenerative arthritis of lumbar spine 0 09/10/2009 Degenerative arthritis of cervical spine 09/10/2009 Knee pain 09/10/2009 Trochanteric bursitis 09/10/2009 Chronic Pain Syndrome angelica sandoval has medical prescription for marijuana. I reviewed this and am in agreement with this as an adjunct to his treatment 09/10/2009 Sleep apnea 08/03/2005 Overview: States not a problem as of 2017 Lost some weight OBESITY, UNSPECIFIED 08/03/2005 THALASSEMIA MINOR 08/03/2005 Hypothyroidism 08/03/2005 ESOPHAGEAL REFLUX endoscopy 2007 006 PANIC DISORDER 08/03/2005 Resolved Problems Problem Noted Date Resolved Date CHRONIC NECK AND BACK PAIN S/P EPIDURAL INJECTIO NS 08/03/2005 09/10/2009 Immunizations Name Administration Dates Next Due COVID-19 (Moderna) PT Reported 06/27/2021,2020,10/16/2020 Influenza (> 6 Months) 04/06/2013,2009,04/09/2009,04/08,05/04/2007 Influenza Flu (PT Reported) 04/30/2017 Influenza vaccine high dose age 65 and over 04/20/2021 Pneumoccoccal(Adult) Polysac charide PPSV23 11/18/2016 Pneumococcal Conjugate PCV-13 09/27/2017 TD (STATE SUPPLIED FOR ADULT S AND CHILDREN) 02/12/2002 TETANUS/DIPTHERIA (ADULT) 02/12/2002 Tdap 01/20/2009 Family History Medical History Relation Name Comments CA Prostate Brother 4 Cancer of the Lung Father Dementia Mother Thyroid Disorder Mother Lymphoma Sister 3 Relation Name Status Comments Brother 1 Alive CANCER PROSTATE Brother [address] ent Brother 3 Alive Brother 4 Father (Age 62) BRAIN TUMO R Mother (Age 91) DEMENTIA Sister 1 Alive lymphoma Sister 2 Alive Sister 3 Social History Tobacco Use Types Packs/Day Years Used Date Smoking Tobacco: Never Smokeless Tobacco: Never Alcohol Use Standard Drinks/Week Comments Yes 0 (1 standard drink = 0.6 oz pur e alcohol) occ Sex Assigned at Date Recorded Not on file Job Start Date Occupation Industry Not on file Not on file Not on file Last Filed Vital Signs Vital Sign Reading Time Taken Comments Blood Pressure 138/64 06/26/2020 1:27 PM EST Pulse 78 12/11/2021 3:15 PM EDT Temperature 36.8 ??C (98.2 ??F) 12/11/2021 3:15 PM ED T Respiratory Rate 14 12/11/2021 3:15 PM EDT Oxygen Saturation 96% 06/26/2020 1:27 PM EST Inhaled Oxygen Concentration - - Weight 101.6 kg (224 lb) 01/19/2022 11:33 AM EDT Height 177.8 cm (5' 10 ) 01/19/2022 11:33 AM EDT Body Mass Index 32.14 01/19/2022 11:33 AM EDT Plan of Treatment Health Maintenance Due Date Last Done Comments DEPRESSION SCREEN 12/11/2022 12/11/2021, , 02/15/2019, Additional history exists FALL RISK ASSESSMENT 12/11/2022 12/11/2021, 12/11/2021, 02/15/2019, Additional history exists Covid-19 Vaccine ( season) 2024 06/27/2021, 11/13/2020, 10/16/2020 INFLUENZA (#1) 2024 04/20/2021, 03/25 (External Completion of Vaccination per patient), 04/30/2017, Additional history exists BMI CHECK/ADVISE 07/25/2024 12/11/2021, , 02/15/2019, Additional history exists CHOLESTEROL SCREENING 12/11/2026 12/11/2021 , 11/18/2016, 01/13/2016, Additional history exists COLON CANCER SCREENING 09/08/2028 2 (External Completion), 05/30/2015, 05/30/2015 (External Completion), Additional history exists DTAP/TDAP/TD (4 - Td or Tdap) 06/03/2030 06/03/2020 (Completed), 07/07/2017, 01/20/2009, Additional history exists HEPATITIS C SCREENING Completed 09/24/2014 PNEUMOCOCCAL VACCINE Completed 09/27/2017, 09/27/2017 (External Completion), 09/08/2017, Additional history exists SHINGLES VACCINE Addressed 06/26/2020 (Ext ernal Completion), 04/01/2020 (External Completion), 07/20/2012 Overridden with the intention of not completing the topic Care Teams Recruiting Team Lead Relationship Specialty Start Date End Date lE Horner PA-C [address] [place] [address] PCP - General Internal Medicine 05/26/21
--- OUTSIDE RECORDS SUMMARY | 2024-08-23 18:46 | XMS_ITS | Encounter Summary ---
Author Organization [facility] Address [address] [place] [address] Care Team Providers Care Container Repairer Name Role Phone Jean-Claude Ch MD Primary Care Provider + [phone] El Honrer PA-C Primary Care Provider +[phone] Encounter Details Date Type Department Care Team Description 10/31/2016 Metal Furniture Assembler Report Medical Records [address] [place] [address]481 Abstract, Provider Social History Tobacco Use Types [...] on filedocumented in this encounter Care Teams Container Repairer Relationship Specialty Start Date End Date Jean-Claude Ch MD [address] [place] [address] PCP - General 06/24/1993 05/25/21 El Horner PA-C [address] [place] [address] [phone] PCP - General Internal Medicine 05/26/21 documented as of this encounter
--- OUTSIDE RECORDS SUMMARY | 2024-08-23 18:46 | XMS_ITS | Encounter Summary ---
Author Organization [facility] Address [address] [place] [address] Care Team Providers Care Marketing Representative Name Role Phone Jean-Claude Ch MD Primary Care Provider +1 [phone] El Horner PA-C Primary Care Provider +1 -[phone] Reason for Visit * Reason Onset Date Comments refill request 06/22/2017 Encounter Details Date Type Department Care Team Description 06/22/2017 Telephone Adult [address] [phone] Jean-Claude Ch MD [address] [place] [address] [phone] refill request Social History Tobacco Use Types Packs/Day Years [...] encounter Miscellaneous Notes * Telephone Encounter - Yusra Briones M.A. - 06/24/2017 11:24 AM EST Message left for patient to return my call. Re:filled for 1 month, 1 tab per night, not approved for more than 10mg per night MANUALLY FAXED TO PHARMACY [facility] * Telephone Encounter - Jean-Claude Ch MD - 06/24/2017 10:47 AM EST Let the patient not I did fill 1 month supply. The dose is 1 per night. He should not take more than one per night as this medicine is not approved for more than 10 mg per night. Prescription was printed * Telephone Encounter - Yusra Briones M.A. - 06/23/2017 4:41 PM EST Please review and advise pt's request * Telephone Encounter - Nara Moreno - 06/22/2017 4:07 PM EST Patient would like script to be: E-PRESCRIBED/FAXED TO PHARMACY When was the patients last office visit in Adult Medicine?: 17 When was the last time the patient saw their PCP? Same as above Does patient have an upcoming appointment? Yes 10.31.18 (THE MEDICATION IS NOT ON THE MED LIST AND IS IDENTIFIED BELOW): {MED LIST:84531) Med name: Patricia Dosage: 10 MG # of tablets: 30 Local pharmacy with request for 30 -day supply Instructions: 2 at bed time per pt stated( PT states he usually receives this medication throught the [place], Provider on vacation.) Pt looking to receive from [facility] until return. Did you check the pharmacy information above?: YES Patients current [place] / Product Type: MEDICAREFEE-FOR-SERVICE documented in this encounter Plan of Treatment Not on file documented as of this encounter Visit Diagnoses Not on filedocumented in this encounter Care Teams Marketing Representative Relationship Specialty Start Date End Date Jean-Claude Ch MD [address] [place] [address] PCP - General 06/24/1993 05/25/21 El Horner PA-C [address] [place] [address] 34394 PCP - General Internal Medicine 05/26/21 documented as of this encounter
--- OUTSIDE RECORDS SUMMARY | 2024-08-23 18:46 | XMS_ITS | Encounter Summary ---
Author Organization [facility] Address [address] [place] [address] Care Team Providers Care Subject Scientific Research Name Role Phone Jean-Claude Ch MD Primary Care Provider + [phone] El Horner PA-C Primary Care Provider + -[phone] Encounter Details Date Type Department Care Team Description 12/26/2019 Seat Joiner Report Medical Records [address] [place] [address]56 Abstract, Provider Social History Tobacco Use Types [...] on filedocumented in this encounter Care Teams Subject Scientific Research Relationship Specialty Start Date End Date Jean-Claude Ch MD [address] [place] [address] 15835 PCP - General 06/24/1993 05/25/21 El Horner PA-C [address] [place] [address] [phone] PCP - General Internal Medicine 05/26/21 documented as of this encounter
--- OUTSIDE RECORDS SUMMARY | 2024-08-23 18:46 | XMS_ITS | Encounter Summary ---
Author Organization [facility] Address [address] [place] [address] Care Team Providers Care Window Shade Cloth Sewer Name Role Phone Jean-Claude Ch MD Primary Care Provider + [phone] El Horner PA-C Primary Care Provider +1 [phone] Encounter Details Date Type Department Care Team Description 04/28/2017 Continuous Improvement Coordinator Report Medical Records [address] [place] [address] 32032 Abstract, Provider Social History Tobacco Use Types [...] on filedocumented in this encounter Care Teams Window Shade Cloth Sewer Relationship Specialty Start Date End Date Jaen-Claude Ch MD [address] [place] [address] 77131 PCP - General 06/24/1993 05/25/21 El Horner PA-C [address] [place] [address] [phone] PCP - General Internal Medicine 05/26/21 documented as of this encounter
--- OUTSIDE RECORDS SUMMARY | 2024-08-23 18:46 | XMS_ITS | Encounter Summary ---
Author Organization [facility] Address [address] [place] [address] Care Team Providers Care Outpatient Psychiatrist Name Role Phone Jean-Claude Ch MD Primary Care Provider + [phone] El Horner PA-C Primary Care Provider +1 -[phone] Encounter Details Date Type Department Care Team Description 11/19/2020 Typewriter Operator Automatic Report Medical Records [address] [place] [address] Rodrick Mckeon Social History Tobacco Use Types [...] on filedocumented in this encounter Care Teams Outpatient Psychiatrist Relationship Specialty Start Date End Date Jean-Claude Ch MD [address] [place] [address] 90452 PCP - General 06/24/1993 05/25/21 El Horner PA-C [address] [place] [address] [phone] PCP - General Internal Medicine 05/26/21 documented as of this encounter
--- OUTSIDE RECORDS SUMMARY | 2024-08-23 18:46 | XMS_ITS | Encounter Summary ---
Author Organization [facility] Address [address] [place] [address] Care Team Providers Care Professional Application Designer Name Role Phone Jean-Claude Ch MD Primary Care Provider +1 [phone] El Horner PA-C Primary Care Provider +1 -[phone] Encounter Details Date Type Department Care Team Description 11/03/2017 Manager Country Report Medical Records [address] [place] [address] 109[address] Jimy Cuevas MD Social History Tobacco Use [...] on filedocumented in this encounter Care Teams Professional Application Designer Relationship Specialty Start Date End Date Jean-Claude Ch MD [address] [place] [address] 99370 PCP - General 06/24/1993 05/25/21 El Horner PA-C [address] [place] [address] [phone] PCP - General Internal Medicine 05/26/21 documented as of this encounter
--- OUTSIDE RECORDS SUMMARY | 2024-08-23 18:46 | XMS_ITS | Encounter Summary ---
Author Organization [facility] Address [address] [place] [address] Care Team Providers Care Sign Builder Supervisor Name Role Phone Jean-Claude Ch MD Primary Care Provider +1 [phone] El Horner PA-C Primary Care Provider +1 -[phone] Encounter Details Date Type Department Care Team Description 11/17/2016 Tool Dresser Report Medical Records [address] [place] [address] 26[address] True Enciso MD Social History Tobacco Use Types Packs/Day [...] on filedocumented in this encounter Care Teams Sign Builder Supervisor Relationship Specialty Start Date End Date Jean-Claude Ch MD [address] [place] [address] 72239 PCP - General 06/24/1993 05/25/21 El Horner PA-C [address] [place] [address] [phone] PCP - General Internal Medicine 05/26/21 documented as of this encounter
--- OUTSIDE RECORDS SUMMARY | 2024-08-23 18:46 | XMS_ITS | Encounter Summary ---
Author Organization [facility] Address [address] [place] [address] Care Team Providers Care Forestry Aide Name Role Phone Jean-Claude Ch MD Primary Care Provider + [phone] El Horner PA-C Primary Care Provider +1 [phone] Encounter Details Date Type Department Care Team Description 08/06/2013 Medical Marijuana Card Medical Records [address] [place] [address] Marcia Palomino Social History Tobacco Use Types Packs/Day Years [...] on filedocumented in this encounter Care Teams Forestry Aide Relationship Specialty Start Date End Date Jean-Claude Ch MD [address] [place] [address] 18945 PCP - General 06/24/1993 05/25/21 El Horner PA-C [address] [place] [address] 31698 PCP - General Internal Medicine 05/26/21 documented as of this encounter
--- OUTSIDE RECORDS SUMMARY | 2024-08-23 18:46 | XMS_ITS | Encounter Summary ---
Author Organization [facility] Address [address] [place] [address] Care Team Providers Care Yarn Conditioner Name Role Phone Jean-Claude Ch MD Primary Care Provider + [phone] El Horner PA-C Primary Care Provider +1 [phone] Encounter Details Date Type Department Care Team Description 08/26/2016 Console Attendant Report Medical Records [address] [place] [address] 35051 True Nieves Social History Tobacco Use Types Packs/Day Years [...] on filedocumented in this encounter Care Teams Yarn Conditioner Relationship Specialty Start Date End Date Jean-Claude Ch MD [address] [place] [address] 48463 PCP - General 06/24/1993 05/25/21 El Horner PA-C [address] [place] [address] 23889 PCP - General Internal Medicine 05/26/21 documented as of this encounter
--- OUTSIDE RECORDS SUMMARY | 2024-08-23 18:46 | XMS_ITS | Encounter Summary ---
Author Organization [facility] Address [address] [place] [address] Care Team Providers Care Ecommerce Manager Name Role Phone Jean-Claude Ch MD Primary Care Provider +1 [phone] El Horner PA-C Primary Care Provider +1 [phone] Encounter Details Date Type Department Care Team Description 12/11/[address] Department Report Medical Records [address] [place] [address] 10534 Abstract, Provider Social History Tobacco Use Types [...] on filedocumented in this encounter Care Teams Ecommerce Manager Relationship Specialty Start Date End Date Jean-Claude Ch MD [address] [place] [address] [phone] PCP - General 06/24/1993 05/25/21 El Horner PA-C [address] [place] [address] [phone] PCP - General Internal Medicine 05/26/21 documented as of this encounter
--- OUTSIDE RECORDS SUMMARY | 2024-08-23 18:46 | XMS_ITS | Encounter Summary ---
Author Organization [facility] Address [address] [place] [address] Care Team Providers Care Percussion Tuner Name Role Phone Jean-Claude Ch MD Primary Care Provider +[phone] El Horner PA-C Primary Care Provider [phone] Reason for Visit * Reason Onset Date Comments Provider Call Back 05/27/2017 Encounter Details Date Type Department Care Team Description 05/27/2017 Telephone Adult Medicine [address] [phone] Jean-Claude Ch MD [address] [place] [address] [phone] Provider Call Back Social History Tobacco Use [...] encounter Miscellaneous Notes * Telephone Encounter - Macrina Cao L.P.N. - 05/27/2017 2:38 PM EDT I called the number , [facility] Meeting with Psych 06/02/2017 PLEASE DO NOT FILL ANY MAINTENANCE MEDICATION / OR PSYCH MEDICATIONS FAX [phone] PLEASE SEND ALL VISITS OR TESTING IN THE FUTURE MI SUSANNA LYON N.P. INFORMATION PLACED IN FYI * Telephone Encounter - Rosa Yan - 05/27/2017 12:08 PM EDT Caller requesting call back from provider:Jean-Claude Ch Is the caller the patient? NO If caller is not the patient, what is the callers name? Romario Callers relationship to patient? [facility] If person calling is not the patient themselves, is there a verbal release in FYI or permanent comments for this person: NO Reason for call back: Patient was involved in a police matter involing guns in his house and shooting rats. Please have Dr. Ch call to discuss medication with Susanna Lyon NP. Caller offered to speak with the nurse for assistance: YES Response: Patient offered to speak with nurse to assist them: refused offer documented in this encounter Plan of Treatment Not on file documented as of this encounter Visit Diagnoses Not on filedocumented in this encounter Care Teams Percussion Tuner Relationship Specialty Start Date End Date Jean-Claude Ch MD [address] [place] [address] 80006 PCP - General 06/24/1993 05/25/21 El Horner PA-C [address] [place] [address] 88830 PCP - General Internal Medicine 05/26/21 documented as of this encounter
--- OUTSIDE RECORDS SUMMARY | 2024-08-23 18:46 | XMS_ITS | Encounter Summary ---
Author Organization [facility] Address [address] [place] [address] Care Team Providers Care Systems Software Developer Name Role Phone Jean-Claude Ch MD Primary Care Provider +1 [phone] El Horner PA-C Primary Care Provider [phone] [phone] Encounter Details Date Type Department Care Team Description 10/22/2013 Portfolio Lead Report Medical Records [address] [place] [address] 48588 True Nieves Social History Tobacco Use Types [...] on filedocumented in this encounter Care Teams Systems Software Developer Relationship Specialty Start Date End Date Jean-Claude Ch MD [address] [place] [address] [phone] PCP - General 06/24/1993 05/25/21 El Horner PA-C [address] [place] [address] [phone] PCP - General Internal Medicine 05/26/21 documented as of this encounter
--- OUTSIDE RECORDS SUMMARY | 2024-08-23 18:46 | XMS_ITS | Encounter Summary ---
Author Organization [facility] Address [address] [place] [address] Care Team Providers Care Web Interface Developer Name Role Phone Jean-Claude Ch MD Primary Care Provider +1 [phone] El Horner PA-C Primary Care Provider [phone] [phone] Encounter Details Date Type Department Care Team Description 06/29/2013 Technology Trainer Report Medical Records [address] [place] [address] 11[address] Jitendra Angeles MD Social History Tobacco Use Types Packs/Day [...] on filedocumented in this encounter Care Teams Web Interface Developer Relationship Specialty Start Date End Date Jean-Claude Ch MD [address] [place] [address] 8[address] PCP - General 06/24/1993 05/25/21 El Horner PA-C [address] [place] [address] [phone] PCP - General Internal Medicine 05/26/21 documented as of this encounter
--- OUTSIDE RECORDS SUMMARY | 2024-08-23 18:46 | XMS_ITS | Encounter Summary ---
Author Organization [facility] Address [address] [place] [address] Care Team Providers Care [place] Name Role Phone Jean-Claude Ch MD Primary Care Provider +1 [phone] El Horner PA-C Primary Care Provider [phone] [phone] Encounter Details Date Type Department Care Team Description 12/23/2016 Assistant Professor Of Radiology Report Medical Records [address] [place] [address] 587[address] Jimy Cuevas MD Social History Tobacco Use [...] on filedocumented in this encounter Care Teams [place] Relationship Specialty Start Date End Date Jean-Claude Ch MD [address] [place] [address] 76071 PCP - General 06/24/1993 05/25/21 El Horner PA-C [address] [place] [address] [phone] PCP - General Internal Medicine 05/26/21 documented as of this encounter
--- OUTSIDE RECORDS SUMMARY | 2024-08-23 18:46 | XMS_ITS | Clinical Summary ---
Author Organization [facility] Address [address] [place] [address] Phone Care Team Providers Care Instrument Repair Supervisor Name Role Phone El Horner Primary Care Provider +1 [phone] Allergies No known active allergies Medications Medication Sig Dispensed Refills Start Date End Date Status aspirin 81 mg capsule 81 mg 1 (one) time each day. Active atorvastatin (LIPITOR) 20 mg tablet Take 1 tablet (20 mg total) by mouth 1 (one) time each day. 02/20/2019 Active betamethasone valerate (VALISONE) 0.1 % cream Apply topically 2 (two) times a day. SPARINGLY TO AFFECTED AREA 11/12/2022 Active calcium carbonate-vitamin D 500 mg-5 mcg (200 unit) per tablet Take 1 tablet by mouth 1 (one) time each day. Active docusate sodium (COLACE) 100 mg capsule Take 2 capsules (200 mg total) by mouth 1 (one) time each day. Active docosahexaenoic acid/epa (FISH OIL ORAL) Take 750 mg by mouth 1 (one) time each day. Active gabapentin (NEURONTIN) 300 mg capsule Take 1 capsule (300 mg total) by mouth 3 (three) times a day. 06/26/2020 Active levothyroxine (SYNTHROID, LEVOTHROID) 200 mcg tablet Take 1 tablet (200 mcg total) by mouth 1 (one) time each day. 03/15/2014 Active levothyroxine (SYNTHROID, LEVOTHROID) 50 mcg tablet Take 1 tablet (50 mcg total) by mouth 1 (one) time each day. 03/15/2014 Active meloxicam (MOBIC) 15 mg tablet Take 1 tablet (15 mg total) by mouth 1 (one) time each day. 03/15/2014 Active PARoxetine (PAXIL) 40 mg tablet Take 1 tablet (40 mg total) by mouth 1 (one) time each day. 02/04/2010 Active polyethylene glycol 3350 (MIRALAX ORAL) Take by mouth continuously if needed. 11/13/2022 Active vit A/vit C/vit E/zinc/copper (PRESERVISION AREDS ORAL) 1 tablet 2 (two) times a day. 06/23/2007 Active omeprazole (PriLOSEC) [address] capsule Take 1 capsule (20 mg total) by mouth 1 (one) time each day. Active sennosides/docusate sodium (SENNA-S ORAL) Take 2 tablets by mouth 2 (two) times a day. Active Active Problems Problem Noted Date Diagnosed Date Gastroparesis 12/11/2021 Hypertension 02/15/2019 Mixed hyperlipidemia 09/24/2014 Cannabis abuse 08/02/2013 Overview (06/15/2024): Medical marijuana prescription issued by Marcia Palomino M.D. and to be followed by her. Radiculitis, cervical 09/21/2010 Rotator cuff syndrome 09/21/2010 Adhesive capsulitis 08/17/2010 Insomnia 01/16/2010 Chronic pain syndrome 09/10/2009 Degenerative arthritis of cervical spine 010 Degenerative arthritis of lumbar spine 0 Hip pain 09/10/2009 Overview (06/15/2024): Jan 07, 2015 Entered By: RAMON OLSON Comment: THR, L Side SEPT 14 Knee pain 09/10/2009 Trochanteric bursitis 09/10/2009 Esophageal reflux 08/03/2005 Hypothyroidism 08/03/2005 Obesity, unspecified 08/03/2005 Panic disorder 08/03/2005 Sleep apnea 08/03/2005 Overview (06/15/2024): States not a problem as of 2016 Lost some weight Thalassemia 08/03/2005 Encounters Date Type Department Care Team Description 05/25/2024 6:26 PM EDT - 05/25/2024 11:00 PM EDT Emergency [facility] Emergency [address] [place] [address] Jenifer Arroyo MD Discharge Disposition: Home or Self Care from Last 3 Months Immunizations Name Administration Dates Next Due Influenza Quadravalent, 0.5m l (Fluad) 65yo and older 04/20/2021 Influenza trivalent, 0.5mL, preservative free (Fluarix; FluLaval; Fluzone) ages 6mo and older (Afluria) 3 years and older 04/06/2013,07/13/2010,04/09/2009,2007,05/04/2007 Influenza, Unspecified 04/30/2017 Pneumococcal conjugate 13 va lent (Prevnar 13, PCV13) 2mo and older 09/27/2017,11/18/2016 Td Tetanus diptheria (Tdvax) 7yo and older 02/12/2002,02/12/2002 Tdap Tetanus diptheria acell ular pertussis (Boostrix; Adacel) 7yo and older 07/07/2017,01/20/2009 Surgical History Surgery Date Site/Laterality Comments CARPAL TUNNEL RELEASE PROCEDURE: [place] NEUROPLASTY &/TRANSPOS MEDIAN NRV CARPAL TUNNE; COMMENT: BILAT TOTAL KNEE ARTHROPLASTY PROCEDURE: HISTORICAL TOTAL KNEE REPLACE; COMMENT: LEFT 2002 ESOPHAGOGASTRODUODENOSCOPY 08/17/07 PROCEDURE: [place] EGD TRANSORAL BIOPSY SINGLE/MULTIPLE; COMMENT: Normal esophagus, stomach(covered with bile) and duodenum on this examination OTHER SURGICAL HISTORY PROCEDURE: HISTORY OTHER; COMMENT: nasal septal surgery OTHER SURGICAL HISTORY PROCEDURE: HISTORY OTHER; COMMENT: left total hip replacement COLONOSCOPY 12/14/2004 PROCEDURE: HISTORICAL COLONOSCOPY; COMMENT: normal COLONOSCOPY 03/05/2015 PROCEDURE: HISTORICAL COLONOSCOPY; COMMENT: [facility]; aborted due to poor prep and rescheduled for another attempt in 2 days. COLONOSCOPY 05/30/2015 PROCEDURE: HISTORICAL COLONOSCOPY; COMMENT: [facility]; no polyps; suboptimal prep, consider screening again in 5 yrs. OTHER SURGICAL HISTORY PROCEDURE: HISTORY OTHER; COMMENT: cervical disc surgery OTHER SURGICAL HISTORY PROCEDURE: HISTORY OTHER; COMMENT: implanted spinal nerve stimulator Medical History Medical History Date Comments Unspecified sleep apnea 08/03/2005 DX:Unspe cified sleep apnea Obesity, unspecified 08/03/2005 DX:Obesity, unspecified Other thalassemia (CMS/HCC) 08/03/2005 DX:O ther thalassemia (HCC) Unspecified hypothyroidism 08/03/2005 DX:Un specified hypothyroidism Esophageal reflux 08/03/2005 DX:Esophageal reflux Panic disorder without agoraphobia 08/03/2005 DX:Panic disorder without agoraphobia Lumbago 08/03/2005 DX:Lumbago Generalized osteoarthrosis, involving multiple sites 08/03/2005 DX:Generalized osteoarthrosi s, involving multiple sites Unspecified sleep apnea 08/03/2005 DX:Unspe cified sleep apnea Insomnia 01/16/2010 DX:Insomnia Historical Medical DX 08/02/2013 DX:Medical marijuana use; COMMENT: Medical marijuana prescription issued by Marcia Palomino M.D. and to be followed by her. Hx of colonoscopy 06/05/2015 DX:Hx of colon oscopy; COMMENT: Screening colonoscopy attempted x 2 during 2014 at the [facility]. Suboptimal bowel prep both times. Consider Cologuard testing 2019. Hypertension 02/15/2019 DX:Hypertension Family History Medical History Relation Name Comments Prostate cancer Brother 1 Lung cancer Father Dementia Mother Thyroid disease Mother Lymphoma Sister 1 Relation Name Status Comments Brother 1 Brother 2 Alive CANCER PROSTATE Brother [address] Brother 4 Alive Father (Age 62) BRAIN TUMO R Mother (Age 91) DEMENTIA Sister 1 Sister 2 Alive lymphoma Sister 3 Alive Social History Tobacco Use Types Packs/Day Years Used Date Smoking Tobacco: Never Smokeless Tobacco: Never Alcohol Use Standard Drinks/Week Comments Yes 0 (1 standard drink = 0.6 oz pur e alcohol) Sex and Gender Information Value Date Recorded Sex Assigned at Not on file Gender Identity Not on file Sexual Orientation Not on file Job Start Date Occupation Industry Not on file Not on file Not on file Obstetrics History Last Filed Vital Signs Vital Sign Reading Time Taken Comments Blood Pressure - - Pulse 78 12/11/2021 3:15 PM EDT Temperature - - Respiratory Rate - - Oxygen Saturation - - Inhaled Oxygen Concentration - - Weight 102 kg (224 lb) 01/19/2022 11:33 AM EDT Height 177.8 cm (5' 10 ) 01/19/2022 11:33 AM EDT Body Mass Index 32.14 01/19/2022 11:33 AM EDT Plan of Treatment Health Maintenance Due Date Last Done Comments Hepatitis A Vaccines (1 of 2 - Risk 2-dose series) 10/31/1970 RSV Immunization Patients 60+ Years Old (1 - Risk 60-74 years 1-dose series) 2011 Depression Screening 06/23/2022 Falls Risk Assessment 06/23/2022 Social Influencers of Health Screening 06/23/2022 Medicare Annual Wellness Visit 12/11/2022 12/11/2021 COVID-19 Vaccine ( season) 2024 06/27/2021, 11/13/2020, 10/16/2020 Influenza Vaccine (#1) 2024 , 06/20/2019, 06/26/2018, Additional history exists Hypertension/CHF/CAD Annual BMP Blood Test 01/19/2025 01/20/2024, 12/11/2021, 05/19/2021, Additional history exists Cholesterol Screening (Lipid Panel) 12/11/2026 12/11/2021 DTaP,Tdap,and Td Vaccines (5 - Td or Tdap) 07/07/2027 07/07/2017, 01/20/2009, 02/12/2002, Additional history exists Colorectal Cancer Screening: Colonoscopy 09/08/2028 09/08/2021 Hepatitis C Screening Completed 09/24/2014 Pneumococcal Vaccine: 65+ Years Completed 09/27/2017, 09/08/2017, 11/18/2016, Additional history exists Zoster Vaccines Completed 01/22/2020, 08/2019, 01/07/2015 Abdominal Aortic Aneurysm (AAA) Screen Discontinued HIB Vaccines Aged Out No longer eligi ble based on patient's age to complete this topic HPV Vaccines Aged Out No longer eligi ble based on patient's age to complete this topic Hepatitis B Vaccines Aged Out No long er eligible based on patient's age to complete this topic IPV Vaccines Aged Out No longer eligi ble based on patient's age to complete this topic MMR Vaccines Aged Out No longer eligi ble based on patient's age to complete this topic Meningococcal ACWY Vaccine Aged Out N o longer eligible based on patient's age to complete this topic RSV Immunization Patients Under 20 months Aged Out No longer eligible based on patient's age to complete this topic Varicella Vaccines Aged Out No longer eligible based on patient's age to complete this topic Procedures Procedure Name Priority Date/Time Associated Diagnosis Comments CT ABDOMEN & PELVIS W CONT Routine 05/25/2024 9:58 PM EDT ANNUAL BMP BLOOD TEST Routine 12/11/2021 LIPID PANEL Routine 12/11/2021 COLONOSCOPY Routine 09/08/2021 HEPATITIS C SCREENING Routine 09/24/2014 from Last 3 Months or Most Recently Relevant to Health Maintenance Results * CT ABDOMEN & PELVIS W CONT (05/25/2024 9:58 PM EDT) Anatomical Region Laterality Modality Computed Tomogra phy 05/25/2024 7:51 PM EDT Narrative 05/25/2024 9:58 PM EDT [facility] Diagnostic Imaging Department [address] [place], [place] [id number] Patient: ??EL GELLER ?/Age/Sex: 1950 - 73 - M Unit#: ??[id number] ? Location/Status: ??SPER/REG ER ? Mnemonic/Ordering Site: ??CTABDPELW/SPMAIN Ordering Physician: ??JENIFER ARROYO MD CT Abdomen & Pelvis W Cont - 05/25/242141 Report Status:Signed CT abdomen and pelvis, 05/25/2024. HISTORY: Abdominal pain and nausea for one year. COMPARISON: None. TECHNIQUE: Contrast-enhanced CT of the abdomen and pelvis with coronal and sagittal reformats. IV contrast dose: 90 mL ISOVUE-370. Dose length product: 1275 ??mGy-cm. FINDINGS: Lung bases: Mild dependent atelectasis at the left base. Cardiac: Moderate coronary artery calcification. Liver: No focal lesion. ??Portal veins are patent. Biliary: Cholecystectomy. Pancreas: Normal. Spleen: Normal. Adrenal glands: Normal. Kidneys: There is focal cortical thinning in the lateral interpolar right kidney suggestive of an area of scarring. ??Hypoenhancement of the posterolateral upper pole cortex of the right kidney, with adjacent fat stranding. ??The distal pelvic ureters are obscured by streak artifact. ??Visualized portions of the collecting systems are normal. Retroperitoneum: No mass or adenopathy. Abdominal vasculature: Moderate atherosclerotic calcifications. Bowel/mesentery: No obstruction or adenopathy. ??No mass or ascites. ??Sigmoid diverticulosis. ??No evidence of diverticulitis. ??Normal appendix. Abdominal wall: There is a generator device or pump in the subcutaneous fat in the left gluteal region. ??A catheter or lead extends from a device into the epidural space, passing superiorly into the thoracic region and out of the field of view. ??Small fat-containing paraumbilical hernia. Pelvic nodes: Partially obscured by streak artifact. ??No visible adenopathy. Pelvic organs: Partially obscured by streak artifact. ??There is suggestion of mural thickening, mild trabeculation, and mild mural fatty infiltration of the u rinary bladder. ??Prostate gland is not visible. Vasectomy clips. Bones: Diffusely demineralized. ??Bilateral hip arthroplasties. ??Prominent degenerative changes of the spine. ??The facet joints are fused from L4 through S1, and there is a posterior decompression at L5-S1. ??Several remote healed left rib fractures. IMPRESSION: 1. ??Focal hypoenhancement of the upper pole cortex of the right kidney with adjacent fat stranding. ??This could represent focal pyelonephritis or a renal infarct. 2. ??Incidental findings as above. Dictating Physician: ??FOREIGN BEARD MD Electronically Signed by: ??FOREIGN BEARD MD Dic Date/Time: ??05/25/242147 Sign date/Time: ??05/25/242157 Procedure Note Foreign Beard MD - 05/26/2024 [facility] Diagnostic Imaging Department [address] [place] [address] Patient: LE GELLER Pietro Parker./Age/Sex: 1950 - 73 - M Unit#: [id number] Location/Status: SPER/REG ER [facility] Ordering Physician: JENIFER ARROYO MD CT Abdomen & Pelvis W Cont - 05/25/24 - 2141 Report Status:Signed CT abdomen and pelvis, 05/25/2024. HISTORY: Abdominal pain and nausea for one year. COMPARISON: None. TECHNIQUE: Contrast-enhanced CT of the abdomen and pelvis with coronaland sagittal reformats. IV contrast dose: 90 mL ISOVUE-370. Dose length product: 1275 mGy-cm. FINDINGS: Lung bases: Mild dependent atelectasis at the left base. Cardiac: Moderate coronary artery calcification. Liver: No focal lesion. Portal veins are patent. Biliary: Cholecystectomy. Pancreas: Normal. Spleen: Normal. Adrenal glands: Normal. Kidneys: There is focal cortical thinning in the lateral interpolarright kidney suggestive of an area of scarring. Hypoenhancement of theposterolateral upper pole cortex of the right kidney, with adjacent fat stranding. Thedistal pelvic ureters are obscured by streak artifact. Visualized portions ofthe collecting systems are normal. Retroperitoneum: No mass or adenopathy. Abdominal vasculature: Moderate atherosclerotic calcifications. Bowel/mesentery: No obstruction or adenopathy. No mass or ascites.Sigmoid diverticulosis. No evidence of diverticulitis. Normal appendix. Abdominal wall: There is a generator device or pump in the subcutaneousfat in the left gluteal region. A catheter or lead extends from a device intothe epidural space, passing superiorly into the thoracic region and out of thefield of view. Small fat-containing paraumbilical hernia. Pelvic nodes: Partially obscured by streak artifact. No visibleadenopathy. Pelvic organs: Partially obscured by streak artifact. There is suggestionof mural thickening, mild trabeculation, and mild mural fatty infiltration ofthe u rinary bladder. Prostate gland is not visible. Vasectomy clips. Bones: Diffusely demineralized. Bilateral hip arthroplasties.Prominent degenerative changes of the spine. The facet joints are fused from [id number] S1, and there is a posterior decompression at L5-S1. Several remotehealed left rib fractures. IMPRESSION: 1. Focal hypoenhancement of the upper pole cortex of the right kidneywith adjacent fat stranding. This could represent focal pyelonephritis or arenal infarct. 2. Incidental findings as above. Dictating Physician: FOREIGN BEARD MD Electronically Signed by: FOREIGN BEARD MD Dic Date/Time: 05/25/242147 Sign date/Time: 05/25/242157 Jenifer Arroyo MD IMG CT PROCEDURES * Annual BMP Blood Test (12/11/2021) Pathologist [facility] Annual BMP Blood Test abstracted Historical Provider [employer] * (ABNORMAL) Lipid panel (12/11/2021) Pathologist [facility] LDL/HDL Ratio 3 0 - 4 Triglycerides 70 0 - 150 mg/dL Cholesterol 171 0 - 200 mg/dL HDL 53 40 mg/dL LDL Cholesterol 104(A) 0 - 100 mg/dL Blood Venous blood specimen / Unknown Historical Provider LAB BLOOD ORDERAB LES * Colonoscopy (09/08/2021) Colonoscopy no interpretation , abstracted Anatomical Region Laterality Modality Other Historical Provider MD PRAKASH VANESSA E * Hepatitis C Screening (09/24/2014) Pathologist [facility] Hepatitis C Screening abstracted Historical Provider MD PRAKASH VANESSA E from Last 3 Months or Most Recently Relevant to Health Maintenance Care Teams Instrument Repair Supervisor Relationship Specialty Start Date End Date El Horner PA [address] [place] [address] [id number] PCP - General Internal Medicine 05/26/21
--- OUTSIDE RECORDS SUMMARY | 2024-08-23 18:46 | XMS_ITS | Encounter Summary ---
Author Organization [facility] Address [address] [place] [address] Care Team Providers Care Nocturnist Name Role Phone eJan-Claude Ch MD Primary Care Provider +1 [phone] El Horner PA-C Primary Care Provider + -[phone] Encounter Details Date Type Department Care Team Description 05/22/2013 Cellars Supervisor Report Medical Records [address] [place] [address] Matteo Garcia Social History Tobacco Use Types Packs/Day Years [...] on filedocumented in this encounter Care Teams Nocturnist Relationship Specialty Start Date End Date Jean-Claude Ch MD [address] [place] [address] [phone] PCP - General 06/24/1993 05/25/21 El Horner PA-C [address] [place] [address] [phone] PCP - General Internal Medicine 05/26/21 documented as of this encounter
--- OUTSIDE RECORDS SUMMARY | 2024-08-23 18:46 | XMS_ITS | Encounter Summary ---
Author Organization [facility] Address [address] [place] [address] Care Team Providers Care Manufacturing Systems Engineer Name Role Phone Jean-Claude Ch MD Primary Care Provider +1 [phone] El Horner PA-C Primary Care Provider +1 -[phone] Encounter Details Date Type Department Care Team Description 12/06/2016 Appraiser Irrigation Tax Report Medical Records [address] [place] [address] 02109 True Enciso MD Social History Tobacco Use [...] on filedocumented in this encounter Care Teams Manufacturing Systems Engineer Relationship Specialty Start Date End Date Jean-Claude Ch MD [address] [place] [address] 98476 PCP - General 06/24/1993 05/25/21 El Horner PA-C [address] [place] [address] [phone] PCP - General Internal Medicine 05/26/21 documented as of this encounter
== END 2024-08-23 15:11 | disposition home or self-care (01) ==
PROVIDERS: PCP Hospitalist; Visit Provider Anesthesiology
DX: M43.10 Spondylolisthesis, site unspecified (principal); G89.4 Chronic pain syndrome; M51.369 Other intervertebral disc degeneration, lumbar region without mention of lumbar back pain or lower extremity pain; M50.30 Other cervical disc degeneration, unspecified cervical region; Z45.1 Encounter for adjustment and management of infusion pump; M47.16 Other spondylosis with myelopathy, lumbar region; M47.812 Spondylosis without myelopathy or radiculopathy, cervical region; M47.816 Spondylosis without myelopathy or radiculopathy, lumbar region
CPT/HCPCS: 62367; 99213

== ENCOUNTER → 2024-08-23 14:51 | Outpatient (BNVA) | payer OTHER, SELFPAY | PROVIDERS: PCP Hospitalist; Visit Provider Anesthesiology | DX: M43.10 Spondylolisthesis, site unspecified (principal); M51.369 Other intervertebral disc degeneration, lumbar region without mention of lumbar back pain or lower extremity pain; M50.30 Other cervical disc degeneration, unspecified cervical region; M47.16 Other spondylosis with myelopathy, lumbar region; M47.812 Spondylosis without myelopathy or radiculopathy, cervical region; M47.816 Spondylosis without myelopathy or radiculopathy, lumbar region; G89.4 Chronic pain syndrome; Z45.1 Encounter for adjustment and management of infusion pump; Z79.891 Long term (current) use of opiate analgesic | CPT/HCPCS: 62367; 99212 ==

== ENCOUNTER 2024-09-06 15:05 | Outpatient (AMB) | payer OTHER, SELFPAY ==
[2024-09-06 15:15] VITALS: BP 160/70; PULSE 82; O2SAT 94; BMI 29.8
--- NOTE | 2024-09-06 15:15 | A.OFFVIS_ITS ---
Vital Signs 09/06/24 15:15 Height 5 ft 8 in Weight 196 lb BMI 29.8 BP 160/70 H Blood Pressure Location Rt brachial Position Sitting Pulse 82 Pulse Source Pulse Oximeter Pulse Oximetry (%) 94 Oxygen Delivery Method Room Air Intake Visit Reasons: ITDD Refill Allergies No Known Allergies Allergy (Verified 09/06/24 15:18) HPI Comments Details: El is in my office for intrathecal pain pump medication refill. See report of the refill as below. He is currently receiving Dilaudid bupivacaine and baclofen in his pump. He has starts to report some moderate improvement from baclofen addition to the pump. However he has started now to complain on pain in the projection of the thoracic and cervical spine. I deci ded to send him for CT scan of the cervical spine. I consider perform Nevro SCS for this patient after I will receive the CT scan. He had the ACDF in the past. [facility] Medical History Obesity PTSD (post-traumatic stress disorder) GERD (gastroesophageal reflux disease) Hypercholesteremia Hypothyroid Retrolisthesis of vertebrae Spondylosis, lumbar, with myelopathy Degeneration, intervertebral disc, cervical Disc degeneration, lumbar Chronic pain syndrome Surgical History S/P insertion of spinal cord stimulator History of total left knee replacement Social History Patient Tobacco Use Status: Never used Tobacco Review of Systems Const All systems reviewed & are unremarkable except as noted in HPI and below Physical Exam Vital Signs: Last Vital Signs Pulse 82 09/06/24 15:15 BP 160/70 H 09/06/24 15:15 Pulse Ox 94 09/06/24 15:15 Oxygen Delivery Method Room Air 09/06/24 15:15 BMI result Body Mass Index 29.8 Last Vital Signs Pulse 74 06/30/23 17:30 Resp 16 06/30/23 17:30 BP 137/42 L 06/30/23 17:30 Pulse Ox 99 06/30/23 17:30 O2 Del Method Room Air 06/30/23 17:30 BMI result Body Mass Index 27.9 Const General: cooperative, comfortable, no acute distress and alert Orientation/consciousness: oriented to person, oriented to place, oriented to time and patient oriented x3 Chest Other: Very limited range of motion of the cervical spine. Tenderness on palpation in projection of the almost entire cervical spine. No pain radiation into bilateral upper extremities. Valsalva maneuver aggravates the patient's pain minimally. Resp Effort & Inspection: normal respiratory effort, able to speak in complete sentences, normal respiratory pattern, no audible wheezes, no cough and respiratory effort not decreased Cardio Jugular venous distension: no JVD Back/Spine/Pelvis Thoracic/Lumbar Spine: paraspinal muscle tenderness, thoracic spinal tenderness and lumbar spinal tenderness Neuro General: oriented to person, oriented to place, oriented to time and patient oriented x3 Assessment & Plan Assessment & Plan (1) Retrolisthesis of vertebrae: Code(s): M43.10 - Spondylolisthesis, site unspecified Category: Medical (2) Chronic pain syndrome: Code(s): G89.4 - Chronic pain syndrome Category: Medical (3) Disc degeneration, lumbar: Code(s): M51.36 - Other intervertebral disc degeneration, lumbar region Category: Medical (4) Degeneration, intervertebral disc, cervical: Code(s): M50.30 - Other cervical disc degeneration, unspecified cervical region Category: Medical (5) Spondylosis, lumbar, with myelopathy: Code(s): M47.16 - Other spondylosis with myelopathy, lumbar region Category: Medical Plan: The pump refill see as below. (6) Spondylosis of cervical joint without myelopathy: Code(s): M47.812 - Spondylosis without myelopathy or radiculopathy, cervical region Category: Medical Plan: Patient reports severe pain in the cervical and thoracic spine. Nevro spinal cord stimulator was offered to the patient. We will try to obtain psychological evaluation from his psychiatrist at [facility]. If not we will need to send him for [facility] psychological evaluation. Pump refill is as below. I continue to escalate the baclofen doses. He reports already moderate improvement on the low back pain. In the order for preparation of the spinal cord stimulator I will send him for a CT scan of the cervical spine with and without contrast to evaluate the position of his hardware in the neck. Appropriate orders were entered as below. (7) Spondylosis of lumbar region without myelopathy or radiculopathy: Code(s): M47.816 - Spondylosis without myelopathy or radiculopathy, lumbar region Category: Medical Plan Intrathecal pump refill. ? THE PATIENT CAME TODAY IN office FOR THE CHANGE OF THE MEDICATION IN his PAIN PUMP. The name and date of were verified and informed consent was obtained for the procedure. ? ?The pump was interrogated and the residual amount of fluid was found to be 14.7 mL. HE WAS POSITIONED prone on the bed AND THE AREA OF THE INTRATHECAL PUMP WAS PREPPED WITH CHLORAPREP. The fenestrated drape was sterilely applied over the area of the pump. Sterile gloves were worn and of the aspiration system was assembled containing 2 in 22 gauge noncoring needle, the needle was connected to extension tubing which was connected to the 20 cc sterile syringe. The pain pump was palpated under the skin in the patient's right buttock area. The needle was inserted through the skin and the central plug of the pain pump and fluid was aspirated. The clear fluid was going into the syringe the total amount of the fluid was 15.0 mL .. After that a new batch? of medication was obtained which was containing new concentration of Dilaudid Dilaudid 2000 micro g , concentration of Bupivacain 23 mg per ml and baclofen 200 micro g per mL. The admixture was made in 20 cc syringe prepared by [facility] compounding pharmacy. The syringe was connected to the bacterial filter, and then connected to the extension tubing. After that the medication in the syringe was slowly instilled into the pump with aspirations at 15 and 5 cc gibbs.? The pump continuous infusion was increased from 190 micro g of hydromorphone with corresponding 2 point 187 mg of bupivacaine and 19.02 micro g of baclofen previously to a new doses of simple continuous medication of 270 micro g a day of Dilaudid, 3.1 0 6 mg a day of bupivacaine and 27.01 micro g a day of baclofen. Orders: Orders CT cervical spine wo/w IV con 09/06/24 G89.4 - Chronic pain syndrome, M47.812 - Spondylosis without myelopathy or radiculopathy, cervical region, M47.816 - Spondylosis without myelopathy or radiculopathy, lumbar region Basic Metabolic Panel 09/06/24 G89.4 - Chronic pain syndrome Patient Instructions: I here by testify that I spent 32 minutes in conversation with this patient as well as planning his care and organizing this note. Coding Level of Care Code Est Pt Level 4 (66920) Procedure Only Diagnoses Retrolisthesis of vertebrae M43.10 Chronic pain syndrome G89.4 Disc degeneration, lumbar M51.36 Degeneration, intervertebral disc, cervical M50.30 Spondylosis, lumbar, with myelopathy M47.16 Spondylosis of cervical joint without myelopathy M47.812 Spondylosis of lumbar region without myelopathy or radiculopathy M47.816
--- OUTSIDE RECORDS SUMMARY | 2024-09-06 15:17 | XMS_ITS | Encounter Summary ---
Author Organization [facility] Address [address] [place] [address] Care Team Providers Care Refractory Furnace Designer Name Role Phone Jean-Claude Ch MD Primary Care Provider +1 [phone] El Horner PA-C Primary Care Provider + -[phone] Encounter Details Date Type Department Care Team Description 12/18/2010 Business Doc Medical Records [address] [place] [address] Abstract, Provider Social History Tobacco Use Types [...] on filedocumented in this encounter Care Teams Refractory Furnace Designer Relationship Specialty Start Date End Date Jean-Claude Ch MD [address] [place] [address] [phone] PCP - General 06/24/1993 05/25/21 El Horner PA-C [address] [place] [address] [phone] PCP - General Internal Medicine 05/26/21 documented as of this encounter
--- OUTSIDE RECORDS SUMMARY | 2024-09-06 15:17 | XMS_ITS | Encounter Summary ---
Author Organization [facility] Address [address] [place] [address] Care Team Providers Care Motor Assembly Supervisor Name Role Phone Jean-Claude Ch MD Primary Care Provider +1 [phone] El Horner PA-C Primary Care Provider +1 [phone] Reason for Visit * Reason Onset Date Comments Call From Pharmacy 2011 Encounter Details Date Type Department Care Team Description 2011 Telephone Medicine/Pediatrics - [address] [phone] Edward García MD Call From Pharmacy Social [...] Do you have this ,was sent to [facility] fax number? * Telephone Encounter - Lakeisha Downs - 2011 1:18 PM EDT [facility] CALLING. THEY STATE THAT THEY HAVE SENT A SCRIPT BACK TO DR GARCÍA AT [phone] SEVERAL TIMES AND THEY NEED TO SPEAK WITH SOMEONE ABOUT THIS. THEY STATE THAT DR GARCÍA FILLED OUT NGUYEN INFO ON THE SCRIPT THEY RECEIVED AND THEY NEED DR GARCÍA TO INITIAL IT. documented in this encounter Plan of Treatment Not on file documented as of this encounter Visit Diagnoses Not on filedocumented in this encounter Care Teams Motor Assembly Supervisor Relationship Specialty Start Date End Date Jean-Claude Ch MD [address] [place] [address] 23404 PCP - General 06/24/1993 05/25/21 El Horner PA-C [address] [place] [phone] PCP - General Internal Medicine 05/26/21 documented as of this encounter
--- OUTSIDE RECORDS SUMMARY | 2024-09-06 15:17 | XMS_ITS | Encounter Summary ---
Author Organization [facility] Address [address] [place] [address] Care Team Providers Care Tennis Ball Coverer Hand Name Role Phone Jean-Claude Ch MD Primary Care Provider +1 [phone] El Horner PA-C Primary Care Provider +1 [phone] Reason for Visit * Reason Onset Date Comments Medication 03/29/2014 Encounter Details Date Type Department Care Team Description 03/29/2014 Telephone Adult Medicine [address] [phone] Jean-Claude Ch MD [address] [place] [address] [phone] Medication Social History Tobacco Use Types Packs/Day [...] 03/29/2014 3:54 PM EDT Juliana SAINI at [facility] given Dr. Ch's response. She understands the [...] is in the hospital and PA from [facility] is rounding, needs to order post meds and is question what dose of levothyroxine pt is taking? Chart lists both 200 Mcg and 50 Mcg? * Telephone Encounter - Najma Cramer - 03/29/2014 2:17 PM EDT Symptoms patient is presenting: Juliana TILE PRESSER @ [facility] is calling to verify this patient's dosage on Levothyroxine. The patient is in [facility]. How long has patient had these symptoms?: PCP: Jean-Claude Ch [place] / [place] / Product Type: MEDICARE [id number] documented in this encounter Plan of Treatment Not on file documented as of this encounter Visit Diagnoses Not on filedocumented in this encounter Care Teams Tennis Ball Coverer Hand Relationship Specialty Start Date End Date Jean-Claude Ch MD [address] [place] [address] PCP - General 06/24/1993 05/25/21 El Horner PA-C [address] [place] [address] PCP - General Internal Medicine 05/26/21 documented as of this encounter
--- OUTSIDE RECORDS SUMMARY | 2024-09-06 15:17 | XMS_ITS | Encounter Summary ---
Author Organization [facility] Address [address] [place] [address] Care Team Providers Care Partnership Development Manager Name Role Phone Jean-Claude Ch MD Primary Care Provider + [phone] El Horner PA-C Primary Care Provider +[phone] Encounter Details Date Type Department Care Team Description 10/14/2017 Appliance Tester Report Medical Records [address] [place] [address] Pulai, Devyn Social History Tobacco Use Types [...] on filedocumented in this encounter Care Teams Partnership Development Manager Relationship Specialty Start Date End Date Jean-Claude Ch MD [address] [place] [address] 39793 PCP - General 06/24/1993 05/25/21 El Horner PA-C [address] [place] [address] [phone] PCP - General Internal Medicine 05/26/21 documented as of this encounter
--- OUTSIDE RECORDS SUMMARY | 2024-09-06 15:17 | XMS_ITS | Encounter Summary ---
Author Organization [facility] Address [address] [place] [address] Care Team Providers Care Quarry Equipment Operator Name Role Phone Jean-Claude Ch MD Primary Care Provider + [phone] El Horner PA-C Primary Care Provider +[phone] Encounter Details Date Type Department Care Team Description 03/21/2019 Electrolytic De Scaler Report Medical Records [address] [place] [address] Claude Tovar MD Social History Tobacco Use [...] on filedocumented in this encounter Care Teams Quarry Equipment Operator Relationship Specialty Start Date End Date Jean-Claude Ch MD [address] [place] [address] 69375 PCP - General 06/24/1993 05/25/21 El Horner PA-C [address] [place] [address] [phone] PCP - General Internal Medicine 05/26/21 documented as of this encounter
--- OUTSIDE RECORDS SUMMARY | 2024-09-06 15:17 | XMS_ITS | Encounter Summary ---
Author Organization [facility] Address [address] [place] [address] Care Team Providers Care Hardware Designer Name Role Phone Jean-Claude Ch MD Primary Care Provider + [phone] El Horner PA-C Primary Care Provider +[phone] Encounter Details Date Type Department Care Team Description 02/22/2019 Hospital Medical Records [address] [place] [address] Claude Tovar MD Social History Tobacco Use [...] on filedocumented in this encounter Care Teams Hardware Designer Relationship Specialty Start Date End Date Jean-Claude Ch MD [address] [place] [address] 13095 PCP - General 06/24/1993 05/25/21 El Horner PA-C [address] [place] [address] 59[address] PCP - General Internal Medicine 05/26/21 documented as of this encounter
--- OUTSIDE RECORDS SUMMARY | 2024-09-06 15:17 | XMS_ITS | Encounter Summary ---
Author Organization [facility] Address [address] [place] [address] Care Team Providers Care Candy Maker Name Role Phone Jean-Claude Ch MD Primary Care Provider +1 [phone] El Horner PA-C Primary Care Provider +1 [phone] Encounter Details Date Type Department Care Team Description 11/03/2017 Structural Metal Fabricator Apprentice Report Medical Records [address] [place] [address] Jimy Cuevas MD Social History Tobacco Use [...] on filedocumented in this encounter Care Teams Candy Maker Relationship Specialty Start Date End Date Jean-Claude Ch MD [address] [place] [address] 31649 PCP - General 06/24/1993 05/25/21 El Horner PA-C [address] [place] [address] [phone] PCP - General Internal Medicine 05/26/21 documented as of this encounter
--- OUTSIDE RECORDS SUMMARY | 2024-09-06 15:17 | XMS_ITS | Encounter Summary ---
Author Organization [facility] Address [address] [place] [address] Care Team Providers Care Tacker Off Name Role Phone Jean-Claude Ch MD Primary Care Provider +1 [phone] El Horner PA-C Primary Care Provider +1 [phone] Encounter Details Date Type Department Care Team Description 07/10/2014 Social Media Project Manager Report Medical Records [address] [place] [address] Jimy Cuevas MD Social History Tobacco Use [...] on filedocumented in this encounter Care Teams Tacker Off Relationship Specialty Start Date End Date Jean-Claude Ch MD [address] [place] [address] 0[address] PCP - General 06/24/1993 05/25/21 El Horner PA-C [address] [place] [address] [phone] PCP - General Internal Medicine 05/26/21 documented as of this encounter
--- OUTSIDE RECORDS SUMMARY | 2024-09-06 15:17 | XMS_ITS | Encounter Summary ---
Author Organization [facility] Address [address] [place] [address] Care Team Providers Care Technical Sales Engineer Name Role Phone Jean-Claude Ch MD Primary Care Provider + [phone] El Horner PA-C Primary Care Provider +[phone] Encounter Details Date Type Department Care Team Description 08/07/2018 Radio Engineer Report Medical Records [address] [place] [address] Anyi [place] NP Social History Tobacco Use [...] on filedocumented in this encounter Care Teams Technical Sales Engineer Relationship Specialty Start Date End Date Jean-Claude Ch MD [address] [place] [address] 79895 PCP - General 06/24/1993 05/25/21 El Horner PA-C [address] [place] [address] [phone] PCP - General Internal Medicine 05/26/21 documented as of this encounter
--- OUTSIDE RECORDS SUMMARY | 2024-09-06 15:17 | XMS_ITS | Encounter Summary ---
Author Organization [facility] Address [address] [place] [address] Care Team Providers Care Code Official Name Role Phone Jean-Claude Ch MD Primary Care Provider +1 [phone] El Horner PA-C Primary Care Provider +1 [phone] Encounter Details Date Type Department Care Team Description 04/18/2014 Jig Grinder Report Medical Records [address] [place] [address] Tom Meyer MD Social History Tobacco Use Types Packs/Day [...] on filedocumented in this encounter Care Teams Code Official Relationship Specialty Start Date End Date Jean-Claude Ch MD [address] [place] [address] 10235 PCP - General 06/24/1993 05/25/21 El Horner PA-C [address] [place] [address] [phone] PCP - General Internal Medicine 05/26/21 documented as of this encounter
--- OUTSIDE RECORDS SUMMARY | 2024-09-06 15:17 | XMS_ITS | Encounter Summary ---
Author Organization [facility] Address [address] [place] [address] Care Team Providers Care Casket Liner Name Role Phone Jean-Claude Ch MD Primary Care Provider + [phone] El Horner PA-C Primary Care Provider [phone] Encounter Details Date Type Department Care Team Description 02/09/2019 Orders Only Adult Medicine [address] [address] Jean-Claude Ch MD [address] [place] [address] [phone] Social History Tobacco Use Types Packs/Day Years [...] on filedocumented in this encounter Care Teams Casket Liner Relationship Specialty Start Date End Date Jean-Claude Ch MD [address] [place] [address] 25550 PCP - General 06/24/1993 05/25/21 El Horner PA-C [address] [place] [address] [phone] PCP - General Internal Medicine 05/26/21 documented as of this encounter
--- OUTSIDE RECORDS SUMMARY | 2024-09-06 15:17 | XMS_ITS | Encounter Summary ---
Author Organization [facility] Address [address] [place] [address] Care Team Providers Care Regional Guide Name Role Phone Jean-Claude Ch MD Primary Care Provider + [phone] El Horner PA-C Primary Care Provider +[phone] Encounter Details Date Type Department Care Team Description 11/07/2017 Push Connector Assembler Report Medical Records [address] [place] [address] Pulai, Devyn Social History Tobacco Use Types [...] on filedocumented in this encounter Care Teams Regional Guide Relationship Specialty Start Date End Date Jean-Claude Ch MD [address] [place] [address]44 PCP - General 06/24/1993 05/25/21 El Horner PA-C [address] [place] [address] [phone] PCP - General Internal Medicine 05/26/21 documented as of this encounter
--- OUTSIDE RECORDS SUMMARY | 2024-09-06 15:17 | XMS_ITS | Encounter Summary ---
Author Organization [facility] Address [address] [place] [address] Care Team Providers Care Hopper Filler Name Role Phone Jean-Claude Ch MD Primary Care Provider + [phone] El Horner PA-C Primary Care Provider +[phone] Encounter Details Date Type Department Care Team Description 08/16/2019 Arch Cushion Skiving Machine Operator Report Medical Records [address] [place] [address] Calixto Peña DPM Social History Tobacco Use [...] on filedocumented in this encounter Care Teams Hopper Filler Relationship Specialty Start Date End Date Jean-Claude Ch MD [address] [place] [address] 74[address] PCP - General 06/24/1993 05/25/21 El Horner PA-C [address] [place] [address] [phone] PCP - General Internal Medicine 05/26/21 documented as of this encounter
--- OUTSIDE RECORDS SUMMARY | 2024-09-06 15:17 | XMS_ITS | Encounter Summary ---
Author Organization [facility] Address [address] [place] [address] Care Team Providers Care Machine Tool Designer Name Role Phone Jean-Claude Ch MD Primary Care Provider +1 [phone] El Horner PA-C Primary Care Provider +1 [phone] Encounter Details Date Type Department Care Team Description 11/19/2014 Personal Insurance Advisor Report Medical Records [address] [place] [address] Pulai, Devyn Social History Tobacco Use Types [...] on filedocumented in this encounter Care Teams Machine Tool Designer Relationship Specialty Start Date End Date Jean-Claude Ch MD [address] [place] [address] 30116 PCP - General 06/24/1993 05/25/21 El Horner PA-C [address] [place] [address] [phone] PCP - General Internal Medicine 05/26/21 documented as of this encounter
--- OUTSIDE RECORDS SUMMARY | 2024-09-06 15:17 | XMS_ITS | Encounter Summary ---
Author Organization [facility] Address [address] [place] [address] Care Team Providers Care Home Office Representative Name Role Phone Jean-Claude Ch MD Primary Care Provider +1 [phone] El Horner PA-C Primary Care Provider +1 [phone] Reason for Visit * Reason Onset Date Comments TEST RESULTS 01/09/2019 Encounter Details Date Type Department Care Team Description 01/09/2019 Telephone Adult Medicine [address] [phone] Jean-Claude Ch MD [address] [place] [address] [phone] TEST RESULTS Social History Tobacco Use Types [...] 01/09/2019 1:48 PM EDT Pt is returning [employer]'s phone call. * Telephone Encounter - Paula [...] on filedocumented in this encounter Care Teams Home Office Representative Relationship Specialty Start Date End Date Jean-Claude Ch MD [address] [place] [address] 15032 PCP - General 06/24/1993 05/25/21 El Horner PA-C [address] [place] [address] [phone] PCP - General Internal Medicine 05/26/21 documented as of this encounter
--- OUTSIDE RECORDS SUMMARY | 2024-09-06 15:17 | XMS_ITS | Encounter Summary ---
Author Organization [facility] Address [address] [place] [address] Care Team Providers Care Sheet Metal Lay Out Worker Name Role Phone Jean-Claude Ch MD Primary Care Provider +1 [phone] El Horner PA-C Primary Care Provider +1 -[phone] Reason for Referral * EXTERNAL (Priority) - Authorized/Booked Specialty Diagnoses / Procedures Referred By Contac t Referred To Contact Neurosurgery Procedures REFERRAL TO NEUROSURGERY (OUT OF NETWORK) Madhuri Newman PA-C [address] [place] [address] Claude Tovar [address] [place] [address] Referral ID Status Reason Start Date Expiration Date V isits Requested Visits Authorized CT 01/08/2019 Authorized/ Booked 01/02/2019 04/11/2019 1 1 Reason for Visit * Reason Onset Date Comments Community Health Director Feedback 01/02/2019 Dr Ospina Encounter Details Date Type Department Care Team Description 01/02/2019 Telephone Adult Medicine [address] [id number] Madhuri Newman PA-C Community Health Director Feedback (Dr Ospina) Social History Tobacco Use Types Packs/Day Years [...] encounter Miscellaneous Notes * Telephone Encounter - Madhuri Newman PA-C - 01/02/2019 12:40 PM EDT Ordered signed * Telephone Encounter - Sabrina Adorno - 01/02/2019 10:57 AM EDT Madhuri Newman, You have recently placed an order for this patient to neurosurgery with a diagnosis of djd multilevel of spine wants second opinion on surgery, previously saw dr valle; if possible would like to see dr ospina. Has nerve stimulator in place and catn receive mri to be seen by Dr Ospina. Dr. Ospinais an out of network provider and you have placed the in network provider order. We can not use this in network order for this provider. I have pended you the correct out of network order for the patient to be scheduled by an out of network provider. Thank you, Sabrina Adam [facility] Department documented in this encounter Plan of Treatment Not on file documented as of this encounter Visit Diagnoses Not on filedocumented in this encounter Care Teams Sheet Metal Lay Out Worker Relationship Specialty Start Date End Date Jean-Claude Ch MD [address] [place] [address] PCP - General 06/24/1993 05/25/21 El Horner PA-C [address] [place] [address] PCP - General Internal Medicine 05/26/21 documented as of this encounter
--- OUTSIDE RECORDS SUMMARY | 2024-09-06 15:17 | XMS_ITS | Encounter Summary ---
Author Organization [facility] Address [address] [place] [address] Care Team Providers Care Legal Operations Manager Name Role Phone Jean-Claude Ch MD Primary Care Provider + [phone] El Horner PA-C Primary Care Provider + [phone] Encounter Details Date Type Department Care Team Description 08/25/2017 Commissioner Public Works Report Medical Records [address] [place] [address] Geri Hargrove MD [address] [place] [address] Social History Tobacco Use Types Packs/Day Years [...] on filedocumented in this encounter Care Teams Legal Operations Manager Relationship Specialty Start Date End Date Jean-Claude Ch MD [address] [place], [place] [phone] PCP - General 06/24/1993 05/25/21 El Horner PA-C [address] [place] [address] [phone] PCP - General Internal Medicine 05/26/21 documented as of this encounter
--- OUTSIDE RECORDS SUMMARY | 2024-09-06 15:17 | XMS_ITS | Encounter Summary ---
Author Organization [facility] Address [address] [place] [address] Care Team Providers Care Pet Caregiver Name Role Phone Jean-Claude Ch MD Primary Care Provider +1 [phone] El Horner PA-C Primary Care Provider +1 [phone] Encounter Details Date Type Department Care Team Description 04/24/2014 Technician Support Association Report Medical Records [address] [place] [address] 125[address] Jimy Cuevas MD Social History Tobacco Use [...] on filedocumented in this encounter Care Teams Pet Caregiver Relationship Specialty Start Date End Date Jean-Claude Ch MD [address] [place] [address] 30218 PCP - General 06/24/1993 05/25/21 El Horner PA-C [address] [place] [address] [phone] PCP - General Internal Medicine 05/26/21 documented as of this encounter
--- OUTSIDE RECORDS SUMMARY | 2024-09-06 15:17 | XMS_ITS | Encounter Summary ---
Author Organization [facility] Address [address] [place] [address] Care Team Providers Care Insurance Claims Specialist Name Role Phone Jean-Claude Ch MD Primary Care Provider +1 [phone] El Horner PA-C Primary Care Provider +1 -[phone] Reason for Visit * Reason Onset Date Comments medication problems 06/27/2014 Encounter Details Date Type Department Care Team Description 06/27/2014 Telephone Adult Medicine [address] [phone] Jean-Claude Ch MD [address] [place] [address] [phone] medication problems Social History Tobacco Use Types [...] call can be reached on cell # [phone] * Telephone Encounter - Jean-Claude Ch MD [...] PLUS HIS [facility] MEDS Also [facility] [place] PLEASE PULL BRANDS EDITOR * Telephone Encounter - Gila Lemon - [...] not the caller who is? Adela from [facility], please call her before 2pm Is this a NEW medication?: NO How long has the patient been taking this medication? Who prescribed this medication for the patient? Jean-Claude Ch Who is patients PCP?: Jean-Claude Ch [place] / [place] / Product Type: MEDICARE [id number] documented in this encounter Plan of Treatment Not on file documented as of this encounter Visit Diagnoses Not on filedocumented in this encounter Care Teams Insurance Claims Specialist Relationship Specialty Start Date End Date Jean-Claude Ch MD [address] [place] [address] PCP - General 06/24/1993 05/25/21 El Horner PA-C [address] [place] [address] 385[address] PCP - General Internal Medicine 05/26/21 documented as of this encounter
--- OUTSIDE RECORDS SUMMARY | 2024-09-06 15:17 | XMS_ITS | Encounter Summary ---
Author Organization [facility] Address [address] [place] [address] Care Team Providers Care Senior Program Manager Name Role Phone Jean-Claude Ch MD Primary Care Provider + [phone] El Horner PA-C Primary Care Provider +1 [phone] Encounter Details Date Type Department Care Team Description 01/04/2019 Orders Only Radiology - [address] [phone] Radiology, Authorizing Screening for diabetes mellitus (Primary [...] EDT [facility] Comment: If patient is -Omani, multiply result by 1.21 Chronic Kidney Disease: < 60 ml/min/1.73 square meters Kidney Failure: < 15 ml/min/1.73 square meters 01/05/2019 11:2 6 AM EDT 01/05/2019 11:26 AM EDT Authorizing Radiology LAB [facility] documented in this encounter Visit Diagnoses Diagnosis Screening for diabetes mellitus- Primary documented in this encounter Care Teams Senior Program Manager Relationship Specialty Start Date End Date Jean-Claude Ch MD [address] [place] [address] PCP - General 06/24/1993 05/25/21 El Horner PA-C [address] [place] [address] PCP - General Internal Medicine 05/26/21 documented as of this encounter
--- OUTSIDE RECORDS SUMMARY | 2024-09-06 15:17 | XMS_ITS | Encounter Summary ---
Author Organization [facility] Address [address] [place] [address] Care Team Providers Care Deskidding Machine Operator Name Role Phone Jean-Claude Ch MD Primary Care Provider + [phone] El Horner PA-C Primary Care Provider +1 [phone] Encounter Details Date Type Department Care Team Description 01/31/2019 Monogram Operator Report Medical Records [address] [place] [address] Claude Tovar Social History Tobacco Use Types Packs/Day Years [...] on filedocumented in this encounter Care Teams Deskidding Machine Operator Relationship Specialty Start Date End Date Jean-Claude Ch MD [address] [place] [address] 8[address] PCP - General 06/24/1993 05/25/21 El Horner PA-C [address] [place] [address] [phone] PCP - General Internal Medicine 05/26/21 documented as of this encounter
--- OUTSIDE RECORDS SUMMARY | 2024-09-06 15:17 | XMS_ITS | Encounter Summary ---
Author Organization [facility] Address [address] [place] [address] Care Team Providers Care Resistor Testing Machine Operator Name Role Phone Jean-Claude Ch MD Primary Care Provider +1 [phone] El Horner PA-C Primary Care Provider [phone] Reason for Referral * Specialist (Urgent) - Authorized/Booked Specialty Diagnoses / Procedures Referred By Contdanya t Referred To Contact Physiatry Diagnoses Pain syndrome, chronic Procedures REFERRAL TO HEAT TREAT FURNACE OPERATOR Jean-Claude Ch MD [address] [place] [address] [address] Referral ID Status Reason Start Date Expiration Date V isits Requested Visits Authorized NOT REQUIRED Authorized/ Booked 09/30/2014 09/30/2015 1 1 Reason for Visit * Reason Onset Date Comments Provider Call Back 09/30/2014 Encounter Details Date Type Department Care Team Description 09/30/2014 Telephone Adult Medicine [address] [address] Jean-Claude Ch MD [address] [place] [address] Provider Call Back Social History Tobacco Use [...] 09/30/2014 2:28 PM EDT Pt is on [facility] Please review and advise. * Telephone Encounter [...] of pain, please call him back at [phone], thank you Caller offered to speak with the nurse for assistance: NO Response: documented in this encounter Plan of Treatment Not on file documented as of this encounter Visit Diagnoses Diagnosis Pain syndrome, chronic- Primary Chronic pain syndrome documented in this encounter Care Teams Resistor Testing Machine Operator Relationship Specialty Start Date End Date Jean-Claude Ch MD [address] [place] [address] PCP - General 06/24/1993 05/25/21 El Horner PA-C [address] [place] [address] PCP - General Internal Medicine 05/26/21 documented as of this encounter
--- OUTSIDE RECORDS SUMMARY | 2024-09-06 15:18 | XMS_ITS | Encounter Summary ---
Author Organization [facility] Address [address] [place] [address] Care Team Providers Care Mechanical Manufacturing Technician Name Role Phone Jean-Claude Ch MD Primary Care Provider +1 [phone] El Horner PA-C Primary Care Provider +1 [phone] Reason for Visit * Reason Onset Date Comments Medication 10/22/2016 having withdrawl s from meds Encounter Details Date Type Department Care Team Description 10/22/2016 Telephone Adult Medicine [address] [phone] Jean-Claude Ch MD [address] [place] [address] [phone] Medication (having withdrawls from meds) Social History Tobacco Use Types Packs/Day Years [...] encounter Miscellaneous Notes * Telephone Encounter - Alejandro Sutton L.P.NEthan - 10/22/2016 4:31 PM EDT Patient states the withdrawal He is on 20 mg for 7 days feels shaky diarrhea Legs shake not sleeping Please review and advise [facility] Advise he increase water Vit water * Telephone Encounter - Cecille Gonzalez - 10/22/2016 4:25 PM EDT Patient returning call. Please call him at [phone] * Telephone Encounter - Alejandro Sutton L.P.NEthan - 10/22/2016 4:19 PM EDT Called patient left message for patient to call triage nurse Please review message below And advise * Telephone Encounter - Trisha Alvarado - 10/22/2016 4:10 PM EDT Symptoms patient is presenting: the pt is having withdrawls from lower doses of meds he is very uncomfortable If pain or injury related was it due to an accident at work or from a motor vehicle accident? NO If yes, gather 3rd constitution party insurance information Date of accident/Injury: How long has patient had these symptoms?: PCP: Jean-Claude Ch Pay[place]: [place] / Plan[place] / Product Type: MEDICARE [id number] documented in this encounter Plan of Treatment Not on file documented as of this encounter Visit Diagnoses Not on filedocumented in this encounter Care Teams Mechanical Manufacturing Technician Relationship Specialty Start Date End Date Jean-Claude Ch MD [address] [place] [address] PCP - General 06/24/1993 05/25/21 El Horner PA-C [address] [place] [address] PCP - General Internal Medicine 05/26/21 documented as of this encounter
--- OUTSIDE RECORDS SUMMARY | 2024-09-06 15:18 | XMS_ITS | Encounter Summary ---
Author Organization [facility] Address [address] [place] [address] Care Team Providers Care Tape Duplicator Name Role Phone Jean-Claude Ch MD Primary Care Provider +1 [phone] El Horner PA-C Primary Care Provider +1 [phone] Encounter Details Date Type Department Care Team Description 12/07/2019 Tag And Label Cutter Report Medical Records [address] [place] [address] Constanza Hilliard MD Social History Tobacco Use Types Packs/Day [...] on filedocumented in this encounter Care Teams Tape Duplicator Relationship Specialty Start Date End Date Jean-Claude Ch MD [address] [place] [address] 26450 PCP - General 06/24/1993 05/25/21 El Horner PA-C [address] [place] [address] [phone] PCP - General Internal Medicine 05/26/21 documented as of this encounter
--- OUTSIDE RECORDS SUMMARY | 2024-09-06 15:18 | XMS_ITS | Encounter Summary ---
Author Organization [facility] Address [address] [place] [address] Care Team Providers Care Nutrient Management Specialist Name Role Phone Jean-Claude Ch MD Primary Care Provider + [phone] El Horner PA-C Primary Care Provider +[phone] Encounter Details Date Type Department Care Team Description 10/05/2013 Controlled Substance Plan Medical Records [address] [place] [address] Abstract, Provider Social History Tobacco Use Types [...] on filedocumented in this encounter Care Teams Nutrient Management Specialist Relationship Specialty Start Date End Date Jean-Claude Ch MD [address] [place] [address] 32419 PCP - General 06/24/1993 05/25/21 El Horner PA-C [address] [place] [address] PCP - General Internal Medicine 05/26/21 documented as of this encounter
--- OUTSIDE RECORDS SUMMARY | 2024-09-06 15:18 | XMS_ITS | Encounter Summary ---
Author Organization [facility] Address [address] [place] [address] Care Team Providers Care Finishing Machine Tender Name Role Phone Jean-Claude Ch MD Primary Care Provider +1 [phone] El Horner PA-C Primary Care Provider +1 [phone] Encounter Details Date Type Department Care Team Description 10/22/2013 Heavy Line Technician Report Medical Records [address] [place] [address] True Nieves Social History Tobacco Use Types [...] on filedocumented in this encounter Care Teams Finishing Machine Tender Relationship Specialty Start Date End Date Jean-Claude Ch MD [address] [place] [address] PCP - General 06/24/1993 05/25/21 El Horner PA-C [address] [place] [address] [phone] PCP - General Internal Medicine 05/26/21 documented as of this encounter
--- OUTSIDE RECORDS SUMMARY | 2024-09-06 15:18 | XMS_ITS | Encounter Summary ---
Author Organization [facility] Address [address] [place] [address] Care Team Providers Care Ocean Export Coordinator Name Role Phone Jean-Claude Ch MD Primary Care Provider +1 [phone] lE Horner PA-C Primary Care Provider +1 [phone] Reason for Visit * Reason Onset Date Comments refill request 06/22/2017 Encounter Details Date Type Department Care Team Description 06/22/2017 Telephone Adult [address] [phone] Jean-Claude Ch MD [address] [place] [address] [phone] refill request Social History Tobacco Use Types [...] MED LIST AND IS IDENTIFIED BELOW): {MED LIST:52636) Med name: Patricia Dosage: 10 MG # of tablets: 30 Local pharmacy with request for 30 -day supply Instructions: 2 at bed time per pt stated( PT states he usually receives this medication throught the [place], Provider on vacation.) Pt looking to receive from [facility] until return. Did you check the pharmacy information above?: YES Patients current insurance carrier: [place] / [place]: [place] / Product Type: MEDICAREFEE-FOR-SERVICE documented in this encounter Plan of Treatment Not on file documented as of this encounter Visit Diagnoses Not on filedocumented in this encounter Care Teams Ocean Export Coordinator Relationship Specialty Start Date End Date Jean-Claude Ch MD [address] [place] [address] PCP - General 06/24/1993 05/25/21 El Horner PA-C [address] [place] [address] PCP - General Internal Medicine 05/26/21 documented as of this encounter
--- OUTSIDE RECORDS SUMMARY | 2024-09-06 15:18 | XMS_ITS | Clinical Summary ---
Author Organization [facility] Address [address] [place] [address] Phone Care Team Providers Care Electrical Manager Name Role Phone El Horner Primary Care Provider +1 [phone] Allergies No known active allergies Medications aspirin 81 mg capsule 81 mg 1 (one) time each day. Active atorvastatin (LIPITOR) 20 mg tablet Take 1 tablet (20 mg total) by mouth 1 (one) time each day. 9 Active betamethasone valerate (VALISONE) 0.1 % cream Apply topically 2 (two) times a day. SPARINGLY TO AFFECTED AREA 3 Active calcium carbonate-vitam in D 500 mg-5 mcg (200 unit) per [...] by mouth 3 (three) times a day. 0 Active levothyroxine (SYNTHROID, LEVOTHROID) 200 mcg tablet Take 1 tablet (200 mcg total) by mouth 1 (one) time each day. 4 Active levothyroxine (SYNTHROID, LEVOTHROID) 50 mcg tablet Take 1 tablet (50 mcg total) by mouth 1 (one) time each day. 4 Active meloxicam (MOBIC) 15 mg tablet Take 1 tablet (15 mg total) by mouth 1 (one) time each day. 4 Active PARoxetine (PAXIL) 40 mg tablet Take 1 tablet (40 mg total) by mouth 1 (one) time each day. 0 Active polyethylene glycol 3350 (MIRALAX ORAL) Take by mouth continuously if needed. 3 Active vit A/vit C/vit E/zinc/copper (PRESERVISION AREDS ORAL) 1 tablet 2 (two) times a day. 7 Active omeprazole (PriLOSEC) [address] capsule Take 1 capsule (20 mg total) by mouth 1 (one) time each day. Active sennosides/docu sate sodium (SENNA-S ORAL) Take 2 tablets by [...] of 2016 Lost some weight Thalassemia 08/03/2005 Immunizations Name Administration Dates Next Due Influenza [...] Date Site/Laterality Comments CARPAL TUNNEL RELEASE PROCEDURE: [place] NEUROPLASTY &/TRANSPOS MEDIAN NRV CARPAL TUNNE; COMMENT: BILAT TOTAL KNEE ARTHROPLASTY PROCEDURE: HISTORICAL TOTAL KNEE REPLACE; COMMENT: LEFT 2002 ESOPHAGOGASTRODUODENOSCOPY 08/17/07 PROCEDURE: [place] EGD TRANSORAL BIOPSY SINGLE/MULTIPLE; COMMENT: Normal esophagus, [...] attempted x 2 during 2014 at the [facility]. Suboptimal bowel prep both times. Consider [...] Recorded Sex Assigned at Not on file Legal Sex Male 2:38 PM EST Gender Identity Not on file Sexual Orientation Not on file Obstetrics History Last Filed [...] Hepatitis C Screening Completed 09/24/2014 Pneumococcal Vaccine: 50+ Years Completed 09/27/2017, 09/08/2017, 11/18/2016, Additional history [...] patient's age to complete this topic Meningococcal B Vacine Aged Out No lo nger eligible based on patient's age to complete this topic RSV Immunization Patients Under 20 months Aged Out No longer eligible based on patient's age to complete this topic Varicella Vaccines Aged Out No longer eligible based on patient's age to complete this topic Procedures Procedure Name Priority Date/Time Associated Diagnosis Comments ANNUAL BMP BLOOD TEST Routine 12/11/2021 LIPID PANEL Routine 12/11/2021 COLONOSCOPY Routine 09/08/2021 HEPATITIS C SCREENING Routine 09/24/2014 from Last 3 Months or Most Recently Relevant to Health Maintenance Results * Annual BMP Blood Test (12/11/2021) Pathologist [facility] Annual BMP Blood Test abstracted [facility] Provider HEALTH MAINTENANCE Final Result * (ABNORMAL) Lipid panel (12/11/2021) [facility] LDL/HDL Ratio 3 0 - 4 Triglycerides 70 0 - 150 mg/dL Cholesterol 171 0 - 200 mg/dL HDL 53 >=40 mg/dL LDL Cholesterol 104(A) 0 - 100 mg/dL Blood Venous blood specimen / Unknown [facility] LAB BLOOD ORDERABLES Mady l Result * Colonoscopy (09/08/2021) [facility] Colonoscopy no interpretation , abstracted Anatomical Region Laterality Modality Other [facility] HEALTH MAINTENANCE Final Result * Hepatitis C Screening (09/24/2014) [facility] Hepatitis C Screening abstracted [facility] Provider HEALTH MAINTENANCE Final Result from Last 3 Months or Most Recently Relevant to Health Maintenance Insurance ADMINISTRATION MEDICARE Care Teams Electrical Manager Relationship Specialty Start Date End Date El Horner PA [address] [place] [address] PCP - General Internal Medicine 05/26/21
--- OUTSIDE RECORDS SUMMARY | 2024-09-06 15:18 | XMS_ITS | Encounter Summary ---
Author Organization [facility] Address [address] [place] [address] Care Team Providers Care Sales Account Executive Name Role Phone Jean-Claude Ch MD Primary Care Provider +1 [phone] El Horner PA-C Primary Care Provider +1 [phone] Encounter Details Date Type Department Care Team Description 12/23/2016 Title Checker Report Medical Records [address] [place] [address] Jimy Cuevas MD Social History Tobacco Use [...] on filedocumented in this encounter Care Teams Sales Account Executive Relationship Specialty Start Date End Date Jean-Claude Ch MD [address] [place] [address] 31649 PCP - General 06/24/1993 05/25/21 El Horner PA-C [address] [place] [address] [phone] PCP - General Internal Medicine 05/26/21 documented as of this encounter
--- OUTSIDE RECORDS SUMMARY | 2024-09-06 15:18 | XMS_ITS | Encounter Summary ---
Author Organization [facility] Address [address] [place] [address] Care Team Providers Care Squeegee Finisher Name Role Phone Jean-Claude Ch MD Primary Care Provider +1 [phone] El Horner PA-C Primary Care Provider +1 [phone] Encounter Details Date Type Department Care Team Description 01/14/2014 Local [place] Truck Driver Report Medical Records [address] [place] [address] Jimy Cuevas MD Social History Tobacco Use [...] on filedocumented in this encounter Care Teams Squeegee Finisher Relationship Specialty Start Date End Date Jean-Claude Ch MD [address] [place] [address] PCP - General 06/24/1993 05/25/21 El Horner PA-C [address] [place] [address] [phone] PCP - General Internal Medicine 05/26/21 documented as of this encounter
--- OUTSIDE RECORDS SUMMARY | 2024-09-06 15:18 | XMS_ITS | Encounter Summary ---
Author Organization [facility] Address [address] [place] [address] Care Team Providers Care Plate Fitter Name Role Phone Jean-Claude Ch MD Primary Care Provider +1 [phone] El Horner PA-C Primary Care Provider + -[phone] Encounter Details Date Type Department Care Team Description 06/27/2013 Student Activities Director Report Medical Records [address] [place] [address] Iker Ram MD Social History Tobacco Use [...] on filedocumented in this encounter Care Teams Plate Fitter Relationship Specialty Start Date End Date Jean-Claude Ch MD [address] [place] [address] PCP - General 06/24/1993 05/25/21 El Horner PA-C [address] [place] [address] [phone] PCP - General Internal Medicine 05/26/21 documented as of this encounter
--- OUTSIDE RECORDS SUMMARY | 2024-09-06 15:18 | XMS_ITS | Encounter Summary ---
Author Organization [facility] Address [address] [place] [address] Care Team Providers Care Tube Former Operator Name Role Phone Jean-Claude Ch MD Primary Care Provider +1 [phone] El Horner PA-C Primary Care Provider +1 [phone] Encounter Details Date Type Department Care Team Description 11/25/2016 Ceo [place] [place] Report Medical Records [address] [place] [address] True Nieves Social History Tobacco Use Types [...] on filedocumented in this encounter Care Teams Tube Former Operator Relationship Specialty Start Date End Date Jean-Claude Ch MD [address] [place] [address] PCP - General 06/24/1993 05/25/21 El Horner PA-C [address] [place] [address] PCP - General Internal Medicine 05/26/21 documented as of this encounter
--- OUTSIDE RECORDS SUMMARY | 2024-09-06 15:18 | XMS_ITS | Encounter Summary ---
Author Organization [facility] Address [address] [place] [address] Care Team Providers Care Service Restorer Emergency Name Role Phone Jean-Claude Ch MD Primary Care Provider + [phone] El Horner PA-C Primary Care Provider [phone] Encounter Details Date Type Department Care Team Description 05/24/2016 [facility] Medical Records [address] [place] [id number] Abstract, Provider Social History Tobacco Use Types [...] on filedocumented in this encounter Care Teams Service Restorer Emergency Relationship Specialty Start Date End Date Jean-Claude Ch MD [address] [place] [address] PCP - General 06/24/1993 05/25/21 El Horner PA-C [address] [place] [address] PCP - General Internal Medicine 05/26/21 documented as of this encounter
--- OUTSIDE RECORDS SUMMARY | 2024-09-06 15:18 | XMS_ITS | Encounter Summary ---
Author Organization [facility] Address [address] [place] [address] Care Team Providers Care Conservation Officer Name Role Phone Jean-Cladue Ch MD Primary Care Provider + [phone] El Horner PA-C Primary Care Provider [phone] Encounter Details Date Type Department Care Team Description 11/22/2016 [facility] Medical Records [address] [place] [address] Abstract, Provider Social History Tobacco Use Types [...] on filedocumented in this encounter Care Teams Conservation Officer Relationship Specialty Start Date End Date Jean-Claude Ch MD [address] [place] [address] PCP - General 06/24/1993 05/25/21 El Horner PA-C [address] [place] [address] 134[address] PCP - General Internal Medicine 05/26/21 documented as of this encounter
--- OUTSIDE RECORDS SUMMARY | 2024-09-06 15:18 | XMS_ITS | Encounter Summary ---
Author Organization [facility] Address [address] [place] [address] Care Team Providers Care Chain Builder Name Role Phone El Horner PA-C Primary Care Provider [phone] Reason for Visit * Reason Onset Date Comments TEST RESULTS 03/04/2022 Encounter Details Date Type Department Care Team Description 03/04/2022 Telephone Adult Medicine [address] [address] El Horner PA-C [address] [place] [address] [phone] TEST RESULTS Social History Tobacco Use Types [...] YES Patient want results to be mail [address] [place] [address] IF PATIENT'S PCP IS NOT IN INSTRUCT PATIENT THAT THEY WILL RECEIVE A CALL BACK WHEN THE PCP IS IN THE OFFICE NEXT. documented in this encounter Plan of Treatment Not on file documented as of this encounter Visit Diagnoses Not on filedocumented in this encounter Care Teams Chain Builder Relationship Specialty Start Date End Date El Horner PA-C [address] [place] [address] PCP - General Internal Medicine 05/26/21 documented as of this encounter
--- OUTSIDE RECORDS SUMMARY | 2024-09-06 15:18 | XMS_ITS | Encounter Summary ---
Author Organization [facility] Address [address] [place] [address] Care Team Providers Care Marina Sales And Service Supervisor Name Role Phone Jean-Claude Ch MD Primary Care Provider + [phone] El Horner PA-C Primary Care Provider + [phone] Encounter Details Date Type Department Care Team Description 05/22/2015 Wellness Visit Medical Records [address] [place] [address] Jean-Claude Ch MD [address] [place] [address] [phone] Social History Tobacco Use Types Packs/Day Years [...] on filedocumented in this encounter Care Teams Marina Sales And Service Supervisor Relationship Specialty Start Date End Date Jean-Claude Ch MD [address] [place] [address] [phone] PCP - General 06/24/1993 05/25/21 El Horner PA-C [address] [place] [address] [phone] PCP - General Internal Medicine 05/26/21 documented as of this encounter
--- OUTSIDE RECORDS SUMMARY | 2024-09-06 15:18 | XMS_ITS | Encounter Summary ---
Author Organization [facility] Address [address] [place] [address] Care Team Providers Care Sizer Machine Name Role Phone Jean-Claude Ch MD Primary Care Provider + [phone] El Horner PA-C Primary Care Provider [phone] Encounter Details Date Type Department Care Team Description 04/28/2017 Craft Recruiter Report Medical Records [address] [place] [address] Abstract, Provider Social History Tobacco Use Types [...] on filedocumented in this encounter Care Teams Sizer Machine Relationship Specialty Start Date End Date Jean-Claude Ch MD [address] [place] [address] PCP - General 06/24/1993 05/25/21 El Horner PA-C [address] [place] [address] [phone] PCP - General Internal Medicine 05/26/21 documented as of this encounter
--- OUTSIDE RECORDS SUMMARY | 2024-09-06 15:18 | XMS_ITS | Encounter Summary ---
Author Organization [facility] Address [address] [place] [address] Care Team Providers Care Storekeeper Helper Name Role Phone Jean-Claude Ch MD Primary Care Provider [phone] El Horner PA-C Primary Care Provider [phone] Reason for Visit * Reason Onset Date Comments Provider Call Back 01/28/2016 Medication 01/28/2016 Encounter Details Date Type Department Care Team Description 01/28/2016 Telephone Adult Medicine [address] [address] Jean-Claude Ch MD [address] [place] [address] Provider Call Back; Medication Social History Tobacco Use Types Packs/Day [...] encounter Miscellaneous Notes * Telephone Encounter - Priscila Rivas - 02/03/2016 4:10 PM EDT Patient called and wants to tell Dr Ch thank you very much. * Telephone Encounter - Jean-Claude Ch MD - 01/29/2016 4:21 PM EDT Called left message that i would refill * Telephone Encounter - Yusra Briones M.A. - 01/28/2016 3:45 PM EDT Please review and advise. * Telephone Encounter - Daisy Bishop - 01/28/2016 2:12 PM EDT Caller requesting call back from provider: Is the caller the patient? YES If caller is not the patient, what is the callers name? N/A Callers relationship to patient? N/A If person calling is not the patient themselves, is there a verbal release in FYI or permanent comments for this person: NO Reason for call back: Patient calling in stating that he wants a medication that was previously prescibed by his radar operator for itching on his scrotum. Would like to speak with Dr. Ch regarding this. Medication name is BETAMATHASONE /1% VALERATE CREAM Caller offered to speak with the nurse for assistance: YES Response: Patient offered to speak with nurse to assist them: refused offer documented in this encounter Plan of Treatment Not on file documented as of this encounter Visit Diagnoses Not on filedocumented in this encounter Care Teams Storekeeper Helper Relationship Specialty Start Date End Date Jean-Claude Ch MD [address] [place] [address] PCP - General 06/24/1993 05/25/21 El Horner PA-C [address] [place] [address] PCP - General Internal Medicine 05/26/21 documented as of this encounter
--- OUTSIDE RECORDS SUMMARY | 2024-09-06 15:18 | XMS_ITS | Encounter Summary ---
Author Organization [facility] Address [address] [place] [address] Care Team Providers Care Tool And Equipment Rental Clerk Name Role Phone Jean-Claude Ch MD Primary Care Provider + [phone] El Horner PA-C Primary Care Provider [phone] Encounter Details Date Type Department Care Team Description 12/15/2016 Head Refrigeration Engineer Report Medical Records [address] [place] [address] Alf Mak Social History Tobacco Use Types [...] on filedocumented in this encounter Care Teams Tool And Equipment Rental Clerk Relationship Specialty Start Date End Date Jean-Claude Ch MD [address] [place] [address] PCP - General 06/24/1993 05/25/21 El Horner PA-C [address] [place] [address] [phone] PCP - General Internal Medicine 05/26/21 documented as of this encounter
--- OUTSIDE RECORDS SUMMARY | 2024-09-06 15:18 | XMS_ITS | Encounter Summary ---
Author Organization [facility] Address [address] [place] [address] Care Team Providers Care Warehouse Insulation Worker Name Role Phone Jean-Claude Ch MD Primary Care Provider [phone] El Horner PA-C Primary Care Provider [phone] Encounter Details Date Type Department Care Team Description 12/06/2016 Asset Protection Officer Report Medical Records [address] [place] [address] True Enciso MD Social History Tobacco Use [...] on filedocumented in this encounter Care Teams Warehouse Insulation Worker Relationship Specialty Start Date End Date Jean-Claude Ch MD [address] [place] [address] PCP - General 06/24/1993 05/25/21 El Horner PA-C [address] [place] [place] [address] [phone] PCP - General Internal Medicine 05/26/21 documented as of this encounter
== END 2024-09-06 15:47 | disposition home or self-care (01) ==
LOC: HO.PMC 15:55
PROVIDERS: PCP Hospitalist; Visit Provider Anesthesiology
DX: G89.4 Chronic pain syndrome (principal); M43.10 Spondylolisthesis, site unspecified; M51.369 Other intervertebral disc degeneration, lumbar region without mention of lumbar back pain or lower extremity pain; M50.30 Other cervical disc degeneration, unspecified cervical region; Z45.1 Encounter for adjustment and management of infusion pump; M47.16 Other spondylosis with myelopathy, lumbar region; M47.812 Spondylosis without myelopathy or radiculopathy, cervical region; M47.816 Spondylosis without myelopathy or radiculopathy, lumbar region
CPT/HCPCS: 62370; 99214

== ENCOUNTER → 2024-09-06 15:15 | Outpatient (BNVA) | payer OTHER, SELFPAY | PROVIDERS: PCP Hospitalist; Visit Provider Anesthesiology | DX: Z45.89 Encounter for adjustment and management of other implanted devices (principal); M43.10 Spondylolisthesis, site unspecified; M51.360 Other intervertebral disc degeneration, lumbar region with discogenic back pain only; M50.30 Other cervical disc degeneration, unspecified cervical region; M47.16 Other spondylosis with myelopathy, lumbar region; M47.812 Spondylosis without myelopathy or radiculopathy, cervical region; M47.816 Spondylosis without myelopathy or radiculopathy, lumbar region | CPT/HCPCS: 62370; 99212 ==

== ENCOUNTER 2024-09-27 15:15 | Outpatient (AMB) | payer OTHER, SELFPAY ==
[2024-09-27 15:17] VITALS: BP 173/86; PULSE 95; O2SAT 95; BMI 29.8
--- NOTE | 2024-09-27 15:17 | A.OFFVIS_ITS ---
Vital Signs 09/27/24 15:17 Height 5 ft 8 in Weight 196 lb BMI 29.8 BP 173/86 H Blood Pressure Location Rt brachial Position Sitting Pulse 95 Pulse Source Pulse Oximeter Pulse Oximetry (%) 95 Oxygen Delivery Method Room Air Intake Visit Reasons: 3 weeks fu ptm Allergies No Known Allergies Allergy (Verified 09/27/24 15:17) HPI Comments Details: El is in my office for intrathecal pain pump dose adjustment as well as follow-up See report of the adjust as below. He is currently receiving Dilaudid bupivacaine and baclofen in his pump. He has starts to report some moderate improvement from baclofen addition to the pump. However he has started now to complain on pain in the projection of the thoracic and cervical spine. I placed the order for cervical spine CT for this patient however unfortunately he failed to follow the order. I discussed with the patient importance of orders follow- up. He will go for the cervical spine CT and after that I will decide the feasibility of spinal cord stimulator to treat his pain in the cervical and thoracic spine. [facility] Medical History Obesity PTSD (post-traumatic stress disorder) GERD (gastroesophageal reflux disease) Hypercholesteremia Hypothyroid Retrolisthesis of vertebrae Spondylosis, lumbar, with myelopathy Degeneration, intervertebral disc, cervical Disc degeneration, lumbar Chronic pain syndrome Surgical History S/P insertion of spinal cord stimulator History of total left knee replacement Social History Patient Tobacco Use Status: Never used Tobacco Review of Systems Const All systems reviewed & are unremarkable except as noted in HPI and below Physical Exam Vital Signs: Last Vital Signs Pulse 95 09/27/24 15:17 BP 173/86 H 09/27/24 15:17 Pulse Ox 95 09/27/24 15:17 Oxygen Delivery Method Room Air 09/27/24 15:17 BMI result Body Mass Index 29.8 Last Vital Signs Pulse 74 06/30/23 17:30 Resp 16 06/30/23 17:30 BP 137/42 L 06/30/23 17:30 Pulse Ox 99 06/30/23 17:30 O2 Del Method Room Air 06/30/23 17:30 BMI result Body Mass Index 27.9 Const General: cooperative, comfortable, no acute distress and alert Orientation/consciousness: oriented to person, oriented to place, oriented to time and patient oriented x3 Chest Other: Very limited range of motion of the cervical spine. Tenderness on palpation in projection of the almost entire cervical spine. No pain radiation into bilateral upper extremities. Valsalva maneuver aggravates the patient's pain minimally. Resp Effort & Inspection: normal respiratory effort, able to speak in complete sentences, normal respiratory pattern, no audible wheezes, no cough and respiratory effort not decreased Cardio Jugular venous distension: no JVD Back/Spine/Pelvis Thoracic/Lumbar Spine: paraspinal muscle tenderness, thoracic spinal tenderness and lumbar spinal tenderness Neuro General: oriented to person, oriented to place, oriented to time and patient oriented x3 Assessment & Plan Assessment & Plan (1) Retrolisthesis of vertebrae: Code(s): M43.10 - Spondylolisthesis, site unspecified Category: Medical (2) Chronic pain syndrome: Code(s): G89.4 - Chronic pain syndrome Category: Medical (3) Disc degeneration, lumbar: Code(s): M51.36 - Other intervertebral disc degeneration, lumbar region Category: Medical (4) Degeneration, intervertebral disc, cervical: Code(s): M50.30 - Other cervical disc degeneration, unspecified cervical region Category: Medical (5) Spondylosis, lumbar, with myelopathy: Code(s): M47.16 - Other spondylosis with myelopathy, lumbar region Category: Medical Plan: The pump refill see as below. (6) Spondylosis of cervical joint without myelopathy: Code(s): M47.812 - Spondylosis without myelopathy or radiculopathy, cervical region Category: Medical Plan: Patient reports severe pain in the cervical and thoracic spine. Nevro spinal cord stimulator was offered to the patient. We will try to obtain psychological evaluation from his psychiatrist at [facility]. If not we will need to send him for [facility] psychological evaluation. Pump refill is as below. I continue to escalate the baclofen doses. He reports already moderate improvement on the low back pain. He needs to go for CT of the cervical spine. Discussion as above. (7) Spondylosis of lumbar region without myelopathy or radiculopathy: Code(s): M47.816 - Spondylosis without myelopathy or radiculopathy, lumbar region Category: Medical Plan Today patient is pump was interrogated and continuous dose was increased from 270 micro g of hydromorphone to 300 micro g of hydromorphone. The patient will go for the CT scan of the cervical spine. After that feasibility of spinal cord stimulator treatment with of his cervicalgia and thoracic back pain will be assessed. If it is possible he needs to go for psychological evaluation and upon completion of psychological evaluation we will proceed with Nevro trial. The follow-up will be scheduled in the future, today escalation of the opioid medication did not result in any changes in the pump refill date. Coding Level of Care Code Est Pt Level 3 (24807) Diagnoses Retrolisthesis of vertebrae M43.10 Chronic pain syndrome G89.4 Disc degeneration, lumbar M51.36 Degeneration, intervertebral disc, cervical M50.30 Spondylosis, lumbar, with myelopathy M47.16 Spondylosis of cervical joint without myelopathy M47.812 Spondylosis of lumbar region without myelopathy or radiculopathy M47.816
--- OUTSIDE RECORDS SUMMARY | 2024-09-27 18:45 | XMS_ITS | Continuity of Care Document ---
Author Name [facility] Organization [facility] Care Team Providers Care Fudger Name Role Phone [facility] Unavailable Unavailable Problems Combined list of problems [...] R Knee (eventually need TKR, R Side?) [place] Anemia Active Condition [place] Back pain (SNOMED CT 861819778) Active Condition Aug 11, 2006 Entered By: RAMON OLSON Comment: OA, L-Spine; not surg candidateJan 2006 Entered By: RAMON OLSON Comment: greater preponderance of OA (versus Discopathy) in L-SpineJan 2006 Entered By: RAMON OLSON Comment: never had a FxJan 2007 Entered By: RAMON OLSON Comment: has already seen [facility] [place] [facility] beta thalassemia (SNOMED CT 49357536) Active Condition November 29, 2006 Entered By: JENIFER BAXTER Comment: f/u pcp [place] Callus Active Condition [place] Chronic pain Active Condition Sep 26, 2020 Entered By: RODO MEZA Comment: x-ray 10/12 mild deg changes left shoulderOct 20, 2021 Entered By: RODO MEZA Comment: 10/13 b/l subacromial CSI inj [facility] [place] [facility] Depression (SNOMED CT 14052721) Active Condition [facility] ECG: normal [...] CPRS 05/13/22: Moderately dilated [facility] Edema Active Condition [facility] [place] [facility] Exposure to potentially hazardous substance ([facility] [id number]) Active Condition Mar 23 Entered By: VENUS GONZALEZ Comment: Entered automatically through JONO Problem List documentation program [facility] Functional dyspepsia Active Condition [facility] Gastroparesis Active [facility] H/O: surgery Active Condition Jul 31, 2020 Entered By: RODO MEZA Comment: Laparoscoplc Cholecystectomy and an Umbilical Hernia Repair on 07/16/[address] Celis. [facility] [place] [facility] Heartburn (SNOMED CT 01408113) Active Condition Aug 08, 2007 Entered By: [...] OLSON Comment: THR, L Side SEPT 14 [place] Hyperlipidemia (SNOMED CT 50979366) Active Condition [place] Hypothyroidism (SNOMED CT 08990342) Active Condition [place] Obesity [facility] Screening for Malignant Neoplasms of colon Active Condition Sep 03, 2008 Entered By: RAMON OLSON Comment: Colonoscopy 2005: Neg CRC; Repeat 2015 ([place])Jan 07, 2015 Entered By: RAMON OLSON Comment: pending [facility] sometime 2014 [place] Traumatic pneumothorax Active Condition [facility] [place] [facility] Closed fracture multiple ribs Inactive Condition 10/05/2023 [facility] [place] [facility] Closed fracture of base of first metacarpal Inactive Condition 10/05/2023 [facility] [place] [facility] Closed fracture of head of left radius Inactive Condition 10/05/2023 [facility] [place] [facility] Diagnosis: ICD-10-CM K30 Functional dyspepsia Active Diagnosis [facility] Diagnosis: ICD-10-CM R10.30 Lower abdominal pain, unspecified Active Diagnosis [facility] Diagnosis: ICD-10-CM Z46.0 Encounter for fit/adjst of spectacles and contact lenses [facility] [place] [facility] Diagnosis: ICD-10-CM 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, bilateral, intermed dry stage Active Diagnosis [facility] [place] [facility] Diagnosis: ICD-10-CM H40.013 Open angle with borderline findings, low risk, bilateral [facility] [place] [facility] Diagnosis: ICD-10-CM K03.6 Deposits [accretions] on teeth Active Diagnosis [facility] [place] [facility] Diagnosis: ICD-10-CM L60.3 Nail dystrophy [facility] Diagnosis: ICD-10-CM D64.9 Anemia, unspecified Active Diagnosis [place] Diagnosis: ICD-10-CM M54.50 Low back pain, unspecified Active Diagnosis [facility] [place] [facility] Diagnosis: ICD-10-CM R11.2 Nausea with vomiting, unspecified Active Diagnosis [place] Diagnosis: ICD-10-CM K08.9 Disorder of teeth and supporting structures, unspecified Active Diagnosis [facility] [place] [facility] Medications Combined list of outpatient medications from [...] PRIOR TO DENTAL APPOINTM ENTS ORAL 05/06/2024 [id number] FRED SCHAFER S 2022 4 [place] BISACODYL 5MG TAB,EC TAKE FOUR TABLETS BY MOUTH ONCE FOR BOWELS - LAXATIVE ORAL 02/12/2024 [id number] Pietro GIORDANO P JR 2023 4 [place] CHOLECALCIF ODALIS 25MCG (1,000UNIT) TAB TAKE ONE TABLET BY MOUTH ONCE DAILY FOR VITAMIN SUPPLEME NTATION ORAL ACTIVE 11/16/2024 [id number] 4 Joao WHEATLEYD A 2023 90 [place] CHOLESTYRAM INE 4GM/9GM PWDR,PKT TAKE 1 PACKET BY MOUTH ONCE DAILY ORAL ACTIVE 11/11/2024 [id number] 4 Viviana GATES MY R 2023 60 [facility] [place] [facility] CYANOCOBALA MIN 1000MCG TAB TAKE ONE TABLET BY MOUTH ONCE DAILY FOR VITAMIN SUPPLEME NTATION ORAL ACTIVE 10/20/2024 [id number] EDISON BAIN Y 2023 90 [facility] [place] DICYCLOMINE HCL 20MG TAB TAKE ONE TABLET BY MOUTH TWICE DAILY NEEDED (FOR IRRITABL E BOWEL SYNDROME ) ORAL DISCONT INUED BY PROVIDE R 07/22/2024 [id number] 4 Joao WHEATLEYD A 2023 40 [place] DICYCLOMINE HCL 20MG TAB TAKE ONE TABLET BY MOUTH TWICE DAILY NEEDED (FOR IRRITABL E BOWEL SYNDROME ) ORAL DISCONT INUED 06/29/2024 [id number] Joao WHEATLEYD A 2023 40 [place] DOCUSATE NA 50MG/SENNOS IDES 8.6MG TAB TAKE 1 TABLET BY MOUTH TWICE DAILY FOR CONSTIPA TION ORAL ACTIVE 05/29/2025 [id number] 4 Joao WHEATLEYD A 2023 200 [place] FERROUS SO4 325MG TAB TAKE ONE TABLET BY MOUTH ONCE DAILY TO SUPPLEME NT IRON ORAL ACTIVE 05/29/2025 [id number] 4 Joao WHEATLEYD A 2023 100 [place] FERROUS SO4 325MG TAB TAKE ONE TABLET BY MOUTH ONCE DAILY TO SUPPLEME NT IRON ORAL DISCONT INUED 04/15/2025 [id number] 4 RA DARIAN BOGGS 2023 100 [facility] FERROUS SO4 325MG TAB TAKE ONE TABLET BY MOUTH ONCE DAILY TO SUPPLEME NT IRON ORAL DISCONT INUED 07/22/2024 [id number] 4 KELVIN BYRD 2023 100 [place] LEVOTHYROXI NE NA 125MCG TAB TAKE ONE TABLET BY MOUTH EVERY MORNING 30 MINUTES BEFORE BREAKFAS T FOR THYROID TAKE ON AN EMPTY STOMACH WITH A FULL GLASS OF WATER ORAL ACTIVE 05/29/2025 [id number] 5 Joao WHEATLEYD A 2023 90 [place] LEVOTHYROXI NE NA 125MCG TAB (SYNTHROID) TAKE ONE TABLET BY MOUTH EVERY MORNING 30 MINUTES BEFORE BREAKFAS T FOR THYROID TAKE ON AN EMPTY STOMACH WITH A FULL GLASS OF WATER ORAL DISCONT INUED 08/22/2024 [id number] KELVIN BYRD 2023 90 [place] LIDOCAINE 5% OINT,TOP APPLY SMALL AMOUNT TOPICALL Y ONCE DAILY NEEDED FOR ITCHING TOPICA L ACTIVE 05/29/2025 [id number] 4 Joao WHEATLEYD A 2023 70 [place] LIDOCAINE 5% OINT,TOP APPLY SMALL AMOUNT TOPICALL Y ONCE DAILY NEEDED FOR ITCHING TOPICA L DISCONT INUED 01/31/2025 [id number] 4 Joao WHEATLEYD A 2023 70 [place] LORAZEPAM 0.5MG TAB TAKE ONE TABLET BY MOUTH ONCE DAILY NEEDED ORAL ACTIVE [place] 2021 [facility] IELD MAGNESIUM OXIDE 420MG TAB TAKE ONE TABLET BY MOUTH ONCE DAILY ORAL ACTIVE 11/09/2024 [id number] EDISON BAIN 2023 90 [facility] MARIJUANA MISCELLANEO US USE DIRECTED NOT APPLIC ABLE ACTIVE [place] 2020 [facility] [place] MULTIVIT/OP HTH AREDS2/LUTE IN/ZEAXANTH IN CAP/TAB TAKE 1 CAPSULE BY MOUTH TWICE DAILY IN THE MORNING AND EVENING, WITH FOOD ORAL ACTIVE 05/09/2025 [id number] 5 LISA CADENA B 2023 120 [facility] [place] [facility] [facility] MULTIVIT/OP HTH AREDS2/LUTE IN/ZEAXANTH IN CAP/TAB TAKE 1 CAPSULE BY MOUTH TWICE DAILY IN THE MORNING AND EVENING, WITH FOOD ORAL DISCONT INUED BY PROVIDE R 08/22/2024 [id number] KELVIN BYRD 2023 120 [place] NORTRIPTYLI NE HCL 10MG CAP TAKE ONE CAPSULE BY MOUTH AT BEDTIME FOR ABDOMINA L PAIN ORAL ACTIVE 07/04/2025 [id number] 4 STANISLAV CARPENTER ER G 2023 90 [facility] NORTRIPTYLI NE HCL 10MG CAP TAKE 1 CAPSULE BY MOUTH AT BEDTIME ORAL ACTIVE Joao WHEATLEY A 2023 [facility] IELD OMEPRAZOLE 20MG CAP,EC TAKE ONE CAPSULE BY MOUTH TWICE DAILY NEEDED FOR GASTROES OPHAGEAL REFLUX DISEASE ORAL 02/25/2024 [id number] FRED SCHAFER S 2022 180 [place] PANTOPRAZOL E NA 40MG TAB,EC TAKE ONE TABLET BY MOUTH EVERY MORNING 30 MINUTES BEFORE BREAKFAS T FOR EXCESSIV E PRODUCTI ON OF STOMACH ACID ORAL ACTIVE 05/31/2025 [id number] 5 Joao WHEATLEY A 2024 90 [place] PANTOPRAZOL E NA 40MG TAB,EC TAKE ONE TABLET BY MOUTH ONCE DAILY ORAL DISCONT INUED (EDIT) 05/29/2025 [id number] 4 Joao WHEATLEY A 2023 30 [place] PANTOPRAZOL E NA 40MG TAB,EC TAKE ONE TABLET BY MOUTH ONCE DAILY ORAL DISCONT INUED 04/12/2025 [id number] CANDELARIO HICKMAN Jair 2023 30 [facility] PANTOPRAZOL E NA 40MG TAB,EC TAKE ONE TABLET BY MOUTH TWICE DAILY ORAL DISCONT INUED 12/30/2024 [id number] 4 Viviana GATES 2023 60 [facility] PAROXETINE HCL 40MG TAB TAKE ONE TABLET BY MOUTH DAILY ORAL ACTIVE 01/31/2025 [id number] 5 Joao WHEATLEY A 2023 90 [place] PAROXETINE HCL 40MG TAB TAKE ONE TABLET BY MOUTH DAILY ORAL DISCONT INUED 01/01/2024 [id number] FRED SCHAFER S 2022 90 [place] POLYETHYLEN E GLYCOL 3350 PWDR,ORAL TAKE CONTENTS OF BOTTLE BY MOUTH ONCE DIRECTED BY PROVIDER - DISSOLVE CONTENTS BEFORE DRINKING ORAL 02/12/2024 [id number] 4 Pietro GIORDANO JR 2023 476 [facility] PROBIOTIC (CULTURELLE DIGESTIVE DAILY) CAP/TAB TAKE BY MOUTH ONCE DAILY ORAL ACTIVE SHELDON BANEGAS [place] PROCHLORPER AZINE MALEATE 10MG TAB TAKE ONE TABLET BY MOUTH TWICE DAILY NEEDED FOR NAUSEA AND VOMITING ORAL DISCONT INUED 06/29/2024 [id number] 4 Joao WHEATLEY A 2023 60 [place] PROCHLORPER AZINE MALEATE 10MG TAB TAKE ONE TABLET BY MOUTH TWICE DAILY NEEDED FOR NAUSEA AND VOMITING ORAL 07/22/2024 [id number] 4 Joao WHEATLEY A 2023 60 [place] PROCHLORPER AZINE MALEATE 10MG TAB TAKE ONE TABLET BY MOUTH TWICE A DAY NEEDED FOR NAUSEA AND VOMITING ORAL 08/02/2024 [id number] 4 KONYN,PET ER G 2023 60 [facility] PSYLLIUM PWDR,ORAL TAKE 2 TEASPOON FULS BY MOUTH ONCE DAILY FOR CONSTIPA TION (MIX WITH AT LEAST 8OZ. OF WATER OR OTHER FLUID) ORAL ACTIVE 07/12/2025 [id number] 4 Joao WHEATLEY AVID A 2023 780 [place] PSYLLIUM PWDR,ORAL MIX AND DRINK 3.4GM(1 TEASPOON FUL) BY MOUTH EVERY DAY FOR IRRITABL E COLON (DISSOLV E IN 8OZ WATER/JU ICE BEFORE DRINKING ) ORAL ACTIVE 07/04/2025 [id number] 4 JAYDEN,PET ER G 2023 390 [facility] SIMVASTATIN 40MG TAB TAKE ONE-HALF TABLET BY MOUTH AT BEDTIME FOR CHOLESTE ROL ORAL ACTIVE 05/29/2025 [id number] 4 Joao WHEATLEYD A 2023 45 [place] SIMVASTATIN 40MG TAB TAKE ONE-HALF TABLET BY MOUTH AT BEDTIME FOR CHOLESTE ROL ORAL DISCONT INUED 08/22/2024 [id number] KELVIN BYRD 2023 45 [place] SODIUM FLUORIDE 1.1% TOOTHPASTE BRUSH SMALL AMOUNT TO TEETH TWICE DAILY FOR TOOTH DECAY PREVENTI ON DENTAL 07/08/2024 [id number] KADEN ALONSO 2022 51 [facility] SUCRALFATE 1GM TAB TAKE ONE TABLET BY MOUTH TWICE DAILY ON AN EMPTY STOMACH. TAKE UPON AWAKENIN G AND BEFORE BED ORAL ACTIVE 05/29/2025 [id number] 4 Joao WHEATLEY AVID A 2023 60 [place] SUCRALFATE 1GM TAB TAKE ONE TABLET BY MOUTH TWICE DAILY ON AN EMPTY STOMACH. TAKE UPON AWAKENIN G AND BEFORE BED ORAL DISCONT INUED 01/20/2025 [id number] 4 CANDELARIO HICKMAN 2023 60 [facility] IELD Allergies, Adverse Reactions, Alerts Combined list of allergies from Department of Defense and Veterans Affairs facilities. It does not include entries that were removed or entered in error. Substance Category Reaction Severity Reaction type Status Date Reported Comments Source ERYTHROMYCIN Propensity to adverse reactions to drug (finding) active 2 [facility] FLOMAX Propensity to adverse reactions to drug (finding) Nausea active 9 [facility] Propensity to adverse reactions to drug (finding) Fatigue MILD active 4 [facility] NEURONTIN Propensity to adverse reactions to drug (finding) Fatigue active 7 [facility] [place] [facility] TAMSULOSIN Propensity to adverse reactions to drug (finding) Nausea MILD active 4 [facility] Immunizations Combined list of available immunizations from the Department of Defense and Veterans Affairs facilities. Immunization Series Date Given Administered By Site Reaction Lot Number CVX Code Drug V Groove Cutter Status Comments Source COVID-19 (MODERNA), MRNA, LNP-S, PF, 100 MCG OR 50 MCG DOSE 3 2020 207 complet ed MOD; [id number]; 2 [facility] [place] INFLUENZA VACCINE, QUADRIVALENT, ADJUVANTED 2020 205 complet ed [facility] COVID-19 (MODERNA), MRNA, LNP-S, PF, 100 MCG/0.5 ML DOSE 2 2020 207 complet ed MOD; [id number]; 1 [facility] I[place] COVID-19 (MODERNA), MRNA, LNP-S, PF, 100 MCG/0.5 ML DOSE 1 2020 207 complet ed MOD; [id number]; 1 [facility] IELD ZOSTER RECOMBINANT 2 2019 187 complet ed [place] ZOSTER RECOMBINANT 1 2019 187 complet ed [place] INFLUENZA, INJECTABLE, QUADRIVALENT, PRESERVATIVE FREE 2018 150 complet ed Site: Left Deltoid [place] INFLUENZA, INJECTABLE, QUADRIVALENT 2017 158 complet [...] got his vaccine at his MD at [facility] [place] [facility] [facility] FLU,3 [...] Mar 22, 2024 10:50 AM Reporting Lab: [facility] [address] [facility] [facility] [address] Performing Lab: [facility] [address] [phone] [place] THYROID TOTAL T3 TRIIODOTHYR ONINE (T3) [MASS/VOLUM E] IN SERUM OR PLASMA 102.12 ng/dL 35 - 193 03/22 Specimen Type: SERUM No comment entered. Ordering Provider: SHAD WHEATLEY A Report Released Date/Time: Mar 22, 2024 10:50 AM Reporting Lab: [facility] [address] [address] Performing Lab: [facility] [address] [facility] [address] [place] TSH THYROTROPIN [UNITS/VOLU ME] IN SERUM OR PLASMA 6.24 u[IU]/ mL 0.35 - 5.00 03/22 H Specimen Type: SERUM No comment entered. Ordering Provider: SHAD WHEATLEY A Report Released Date/Time: Mar 22, 2024 10:50 AM Reporting Lab: [facility] [address] Performing Lab: [facility] [address] [place] CBC AND DIFF (AUTO) LEUKOCYTES [#/VOLUME] IN BLOOD BY AUTOMATED COUNT 6.41 10*3/u L 4.50 - 11.00 03/22 Specimen Type: BLOOD No comment entered. Ordering Provider: SHAD WHEATLEY A Report Released Date/Time: Mar 22, 2024 10:50 AM Reporting Lab: [facility] [address] Performing Lab: [facility] [address] [place] CBC AND DIFF (AUTO) ERYTHROCYTE S [#/VOLUME] IN BLOOD BY AUTOMATED COUNT 4.43 10*6/u L 4.23 - 5.66 03/22 Specimen Type: BLOOD No comment entered. Ordering Provider: SHAD WHEATLEY A Report Released Date/Time: Mar 22, 2024 10:50 AM Reporting Lab: [facility] [address] [facility] [facility] [address] Performing Lab: [facility] [address] [address] [place] CBC AND DIFF (AUTO) HEMOGLOBIN [MASS/VOLUM E] IN BLOOD 10.3 g/dL 12.8 - 17 03/22 L Specimen Type: BLOOD No comment entered. Ordering Provider: SHAD WHEATLEY A Report Released Date/Time: Mar 22, 2024 10:50 AM Reporting Lab: [facility] [address] [address] Performing Lab: [facility] [address] [address] [place] CBC AND DIFF (AUTO) HEMATOCRIT [VOLUME FRACTION] OF BLOOD BY AUTOMATED COUNT 32.5 39.2 - 50.4 03/22 L Specimen Type: BLOOD No comment entered. Ordering Provider: SHAD WHEATLEY A Report Released Date/Time: Mar 22, 2024 10:50 AM Reporting Lab: [facility] [address] [address] Performing Lab: [facility] [address] [address] [place] CBC AND DIFF (AUTO) MCV [ENTITIC VOLUME] BY AUTOMATED COUNT 73.4 fL 82 - 99 03/22 L Specimen Type: BLOOD No comment entered. Ordering Provider: SHAD WHEATLEY A Report Released Date/Time: Mar 22, 2024 10:50 AM Reporting Lab: [facility] [address] Performing Lab: [facility] [address] [place] CBC AND DIFF (AUTO) MCHC [MASS/VOLUM E] BY AUTOMATED COUNT 31.7 g/dL 30.8 - 35.1 03/22 Specimen Type: BLOOD No comment entered. Ordering Provider: SHAD WHEATLEY A Report Released Date/Time: Mar 22, 2024 10:50 AM Reporting Lab: [facility] [place] [facility] [address] [facility] [address] Performing Lab: [facility] [place] [address] [address] [place] CBC AND DIFF (AUTO) PLATELETS [#/VOLUME] IN BLOOD BY AUTOMATED COUNT 284 10*3/u L 140 - 360 03/22 Specimen Type: BLOOD No comment entered. Ordering Provider: SHAD WHEATLEY A Report Released Date/Time: Mar 22, 2024 10:50 AM Reporting Lab: [facility] [place] [address] [address] Performing Lab: [facility] [place] [address] [address] [place] CBC AND DIFF (AUTO) ERYTHROCYTE DISTRIBUTIO N WIDTH [RATIO] BY AUTOMATED COUNT 14.5 12.0 - 16.0 03/22 Specimen Type: BLOOD No comment entered. Ordering Provider: SHAD WHEATLEY A Report Released Date/Time: Mar 22, 2024 10:50 AM Reporting Lab: [facility] [place] [address] [address] Performing Lab: [facility] [place] [address] [address] [place] CBC AND DIFF (AUTO) MONOCYTES [#/VOLUME] IN BLOOD BY AUTOMATED COUNT 0.58 10*3/u L 0.30 - 1.10 03/22 Specimen Type: BLOOD No comment entered. Ordering Provider: SHAD WHEATLEY A Report Released Date/Time: Mar 22, 2024 10:50 AM Reporting Lab: [facility] [place] [address] [address] Performing Lab: [facility] [place] [address] [address] [place] CBC AND DIFF (AUTO) MCH [ENTITIC MASS] BY AUTOMATED COUNT 23.3 pg 26.2 - 32.6 03/22 L Specimen Type: BLOOD No comment entered. Ordering Provider: SHAD WHEATLEY A Report Released Date/Time: Mar 22, 2024 10:50 AM Reporting Lab: [facility] [place] [facility] [address] [facility] [facility] [address] Performing Lab: [facility] [place] [address] [address] [place] CBC AND DIFF (AUTO) NEUTROPHILS /100 LEUKOCYTES IN BLOOD BY AUTOMATED COUNT 62.3 43.7 - 75.8 03/22 Specimen Type: BLOOD No comment entered. Ordering Provider: SHAD WHEATLEY A Report Released Date/Time: Mar 22, 2024 10:50 AM Reporting Lab: [facility] [place] [address] [address] Performing Lab: [facility] [address] [address] [place] CBC AND DIFF (AUTO) LYMPHOCYTES /100 LEUKOCYTES IN BLOOD BY AUTOMATED COUNT 19.3 14.0 - 42.3 03/22 Specimen Type: BLOOD No comment entered. Ordering Provider: SHAD WHEATLEY A Report Released Date/Time: Mar 22, 2024 10:50 AM Reporting Lab: [facility] [place] [address] [address] Performing Lab: [facility] [address] [address] [place] CBC AND DIFF (AUTO) MONOCYTES/1 00 LEUKOCYTES IN BLOOD BY AUTOMATED COUNT 9.0 5.1 - 13.7 03/22 Specimen Type: BLOOD No comment entered. Ordering Provider: SHAD WHEATLEY A Report Released Date/Time: Mar 22, 2024 10:50 AM Reporting Lab: [facility] [address] [address] Performing Lab: [facility] [address] [address] [place] CBC AND DIFF (AUTO) EOSINOPHILS /100 LEUKOCYTES IN BLOOD BY AUTOMATED COUNT 8.0 0.4 - 6.8 03/22 H Specimen Type: BLOOD No comment entered. Ordering Provider: SHAD WHEATLEY A Report Released Date/Time: Mar 22, 2024 10:50 AM Reporting Lab: [facility] [address] [address] Performing Lab: [facility] [address] [address] [place] CBC AND DIFF (AUTO) BASOPHILS/1 00 LEUKOCYTES IN BLOOD BY AUTOMATED COUNT 0.9 0.1 - 2.0 03/22 Specimen Type: BLOOD No comment entered. Ordering Provider: SHAD WHEATLEY A Report Released Date/Time: Mar 22, 2024 10:50 AM Reporting Lab: [facility] [address] [address] Performing Lab: [facility] [address] [place] CBC AND DIFF (AUTO) NEUTROPHILS [#/VOLUME] IN BLOOD BY AUTOMATED COUNT 3.99 10*3/u L 2.20 - 7.60 03/22 Specimen Type: BLOOD No comment entered. Ordering Provider: SHAD WHEATLEY A Report Released Date/Time: Mar 22, 2024 10:50 AM Reporting Lab: [facility] [address] [address] Performing Lab: [facility] [address] [address] [place] CBC AND DIFF (AUTO) LYMPHOCYTES [#/VOLUME] IN BLOOD BY AUTOMATED COUNT 1.24 10*3/u L 1.00 - 3.20 03/22 Specimen Type: BLOOD No comment entered. Ordering Provider: SHAD WHEATLEY A Report Released Date/Time: Mar 22, 2024 10:50 AM Reporting Lab: [place] [facility] [place] [address] [address] Performing Lab: [facility] [address] [address] [place] CBC AND DIFF (AUTO) EOSINOPHILS [#/VOLUME] IN BLOOD BY AUTOMATED COUNT 0.51 10*3/u L 0.03 - 0.44 03/22 H Specimen Type: BLOOD No comment entered. Ordering Provider: SHAD WHEATLEY A Report Released Date/Time: Mar 22, 2024 10:50 AM Reporting Lab: [facility] [address] [address] Performing Lab: [facility] [address] [address] [place] CBC AND DIFF (AUTO) BASOPHILS [#/VOLUME] IN BLOOD BY AUTOMATED COUNT 0.06 10*3/u L 0.01 - 0.13 03/22 Specimen Type: BLOOD No comment entered. Ordering Provider: SHAD WHEATLEY A Report Released Date/Time: Mar 22, 2024 10:50 AM Reporting Lab: [facility] [address] [address] Performing Lab: [facility] [address] [address] [place] CBC AND DIFF (AUTO) IMMATURE GRANULOCYTE S/100 LEUKOCYTES IN BLOOD BY AUTOMATED COUNT 0.5 0.0 - 0.7 03/22 Specimen Type: BLOOD No comment entered. Ordering Provider: SHAD WHEATLEY A Report Released Date/Time: Mar 22, 2024 10:50 AM Reporting Lab: [facility] [address] [address] Performing Lab: [facility] [address] [address] [place] CBC AND DIFF (AUTO) IMMATURE GRANULOCYTE S [#/VOLUME] IN BLOOD 0.03 10*3/u L 0.00 - 0.06 03/22 Specimen Type: BLOOD No comment entered. Ordering Provider: SHAD WHEATLEY A Report Released Date/Time: Mar 22, 2024 10:50 AM Reporting Lab: [facility] [address] Performing Lab: [facility] [address] [address] [place] CBC AND DIFF (AUTO) NRBC % 0.0 0.0 - 0.0 03/22 Specimen Type: BLOOD No comment entered. Ordering Provider: SHAD WHEATLEY Report Released Date/Time: Mar 22, 2024 10:50 AM Reporting Lab: [address] [address] Performing Lab: [address] [address] [place] CBC AND DIFF (AUTO) NRBC, ABS 0.00 10*3/u L 0.00 - 0.00 03/22 Specimen Type: BLOOD No comment entered. Ordering Provider: SHAD WHEATLEY A Report Released Date/Time: Mar 22, 2024 10:50 AM Reporting Lab: [address] [address] Performing Lab: [address] [address] [place] TSH THYROTROPIN [UNITS/VOLU ME] IN SERUM OR PLASMA 6.71 u[IU]/ mL 0.35 - 5.00 02/12 H Specimen Type: SERUM No comment entered. Ordering Provider: JOHN BYRD Report Released Date/Time: December 12, 2023 09:14 PM Reporting Lab: [address] [address] Performing Lab: [address] [address] [place] FERRITIN FERRITIN [MASS/VOLUM E] IN SERUM OR PLASMA 213 ng/mL 20 - 300 11/22 Specimen Type: SERUM No comment entered. Ordering Provider: JOHN BYRD WILL J Report Released Date/Time: Oct 05, 2023 03:45 PM Reporting Lab: [address] [address] Performing Lab: [address] [address] [place] IRON & TIBC PANEL IRON BINDING CAPACITY [MASS/VOLUM E] IN SERUM OR PLASMA 268 ug/dL 204 - 475 11/22 Specimen Type: SERUM No comment entered. Ordering Provider: JOHN BYRD WILL J Report Released Date/Time: Oct 05, 2023 03:45 PM Reporting Lab: [address] [address] Performing Lab: [address] [address] [place] IRON & TIBC PANEL IRON [MASS/VOLUM E] IN SERUM OR PLASMA 40 ug/dL 40 - 160 11/22 Specimen Type: SERUM No comment entered. Ordering Provider: JOHN BYRD WILL J Report Released Date/Time: Oct 05, 2023 03:45 PM Reporting Lab: [address] [address] Performing Lab: [address] [address] [place] IRON & TIBC PANEL IRON/IRON BINDING CAPACITY.TO SPENCER [MASS RATIO] IN SERUM OR PLASMA 14.9 20.0 - 50.0 11/22 L Specimen Type: SERUM No comment entered. Ordering Provider: JOHN BYRD WILL J Report Released Date/Time: Oct 05, 2023 03:45 PM Reporting Lab: [address] [address] Performing Lab: [address] [address] [place] VITAMIN D (25-OH) 25-HYDROXYV ITAMIN D3 [MASS/VOLUM E] IN SERUM OR PLASMA 26 ng/mL 20 - 50 11/22 Specimen Type: SERUM No comment entered. Ordering Provider: JOHN BYRD WILL J Report Released Date/Time: Oct 05, 2023 03:45 PM Reporting Lab: [address] [address] Performing Lab: [address] [address] [place] HEMOGLOBI N A1C PANEL HEMOGLOBIN A1C/HEMOGLO [...] Oct 05, 2023 03:45 PM Reporting Lab: [facility]ENTERTRN [facility]USE[facility] [address] [facility] [address] Performing Lab: [facility] [address] [facility] TSH THYROTROPIN [UNITS/VOLU ME] IN SERUM OR PLASMA 7.13 u[IU]/ mL 0.35 - 5.00 11/22 H Specimen Type: SERUM No comment entered. Ordering Provider: JOHN BYRD Report Released Date/Time: Oct 05, 2023 03:45 PM Reporting Lab: [facility] [address] [facility] [facility] [address] Performing Lab: [facility] [address] [facility] Vital Signs Combined list of inpatient and outpatient Vital Signs from Department of Defense and Veterans Affairs, ranging from 12 months to all on record, depending upon the facility. Vital Sign Value Date Comments Source SYSTOLIC BLOOD PRESSURE 146 03/22/20 12:40:04 [place] DIASTOLIC BLOOD PRESSURE 81 024 12:40:04 [place] PULSE OXIMETRY 96 03/22/2024 12:40:04 [place] WEIGHT 215.4 03/22/2024 12:40:04 [place] BMI 32 kg/m2 03/22/2024 12:40:04 [place] TEMPERATURE 98.2 03/22/2024 12:40:04 [place] PULSE 83 03/22/2024 12:40:04 [place] SYSTOLIC BLOOD PRESSURE 140 10/20/19 24 15:47:08 [facility] DIASTOLIC BLOOD PRESSURE 77 024 15:47:08 [facility] PULSE OXIMETRY 97 10/20/2023 15:47:08 [facility] WEIGHT 209.4 10/20/2023 15:47:08 [facility] BMI 31 kg/m2 10/20/2023 15:47:08 [facility] PAIN 4 10/20/2023 15:47:08 [facility] TEMPERATURE 98 10/20/2023 15:47:08 [facility] PULSE 103 10/20/2023 15:47:08 [facility] RESPIRATION 18 10/20/2023 15:47:08 [facility] PULSE OXIMETRY 95 10/05/2023 15:06:05 [place] WEIGHT 188 10/05/2023 15:06:05 [place] BMI 28 kg/m2 10/05/2023 15:06:05 [place] PAIN 6 10/05/2023 15:06:05 [place] HEIGHT 69 10/05/2023 15:06:05 [place] TEMPERATURE 98.8 10/05/2023 15:06:05 [place] PULSE 90 10/05/2023 15:06:05 [place] RESPIRATION 18 10/05/2023 15:06:05 [place] Encounters Combined list of: 1) Encounters from Department of Veterans Affairs facilities going backup to the last 18 months, not all [place] inpatient encounters are included; 2) Encounters from the Department of [facility] facilities going backup to 280 months. Location Location Details Encounter Type Encounter Number Reason For Visit Attending Provider ADM Date DC Date Status Disposition Source [facility] Encounter [id number] 03/30 [facility] Outpatient Encounter [id number] 04/01 [facility] EYE EXAM&TX ESTAB PT 1/>VST [id number] Diagnos is: ICD-10- CM H35.313 2 Nexdtve age-rel ated mclr frankien, bilduncan al, interme d dry stage [place] CADENA B 04/19 [facility] FIT SPECTACLES BIFOCAL [id number] Diagnos is: ICD-10- CM Z46.0 Encount er for fit/adj st of spectac les and contact lenses NÉSTOR WILSON 04/20 [facility] Outpatient Encounter [id number] 04/21 [facility] Out[facility] Encounter [id number] 04/21 [facility] Out[facility] Encounter [id number] 05/01 [facility] Out[facility]counter [id number] 05/24 [facility] Out[facility] Encounter [id number] 05/30 [facility] Out[facility] Encounter [id number] 05/31 [facility] Out[facility] Encounter [id number] 06/02 [facility] Out[facility] Encounter [id number] 06/08 [facility] Out[facility] Encounter [id number] 06/27 [facility] [place] Outpatient [facility]counter [id number] 06/28 [place] [facility] Out[facility] Encounter [id number] 06/29 [facility] Out[facility] Encounter [id number] 07/04 [facility] Out[facility] Encounter [id number] 07/07 [facility] Out[facility] Encounter [id number] 07/08 [facility] INTRAORAL PERIAPICAL EA ADD [id number] Diagnos is: ICD-10- CM K08.9 Disorde r of teeth and support ing structu res, unspeci KADEN Livingston 07/08 [facility] Out[facility] Encounter [id number] 07/20 [facility] Out[facility] Encounter [id number] 07/21 [facility] Out[facility] Encounter [id number] 07/21 [facility] EXTRACTION ERUPTED TOOTH/EXR [id number] Diagnos is: ICD-10- CM K08.9 Disorde r of teeth and support ing structu res, unspeci DE Kuo E 07/22 [facility] Out[facility] Encounter [id number] 07/22 [facility] Out[facility] Encounter [id number] 07/26 [facility] Out[facility] Encounter [id number] 07/27 [facility] Out[facility] Encounter [id number] 08/01 [facility] Out[facility] Encounter [id number] 08/01 [facility] Out[facility] Encounter [id number] 08/02 [facility] Out[facility] Encounter [id number] 08/10 [facility] Out[facility] Encounter [id number] 08/15 [facility] Out[facility] Encounter [id number] 08/18 [facility] Out[facility] Encounter [id number] 08/18 [facility] Outpatient [facility]counter [id number] 08/23 [facility] CLEAN/INSP ECT MAX COMP DENT [id number] Diagnos is: ICD-10- CM K03.6 Deposit s [accret ions] on teeth NATHALY,MAUREEN MARTIN K 08/24 [facility] OFFICE O/P EST HI 40 MIN [id number] Diagnos is: ICD-10- CM R11.2 Nausea with vomitin g, unspeci fied GIL BYRD J 10/04 [place] [facility] Outpatient Encounter [id number] 10/06 [facility] OFFICE O/P EST MOD 30 MIN [id number] Diagnos is: ICD-10- CM M54.50 Low back pain, unspeci fied MELVINA BAIN IEL Y 10/19 [facility] Outpatient Encounter [id number] 10/24 [facility] Out[facility] Encounter [id number] 11/06 [facility] Outpatient Encounter [id number] 11/10 [facility] Outpatient Encounter [id number] 11/10 [facility] Out[facility] Encounter [id number] 11/15 [facility] Out[facility]counter [id number] 11[facility]15 [facility] Out[facility] Encounter [id number] 12/25 [facility] Out[facility] Encounter [id number] 12/29 [facility] Out[facility]counter [id number] 01/17 [facility] Out[facility] Encounter [id number]/19 [facility] Out[facility] Encounter [id number] 01/28 [facility] Out[facility] Encounter [id number] 01/29 [facility] Out[facility] Encounter [id number] 02/01 [facility] Out[facility] Encounter [id number] 02/06 [facility] Out[facility]counter [id number] 02[facility]06 [facility] Outpatient Encounter [id number] 02/06 [facility] Out[facility] Encounter [id number] 02/08 [facility] Out[facility] Encounter [id number] 02/12 [facility] Out[facility] Encounter [id number] 02/20 [facility] Out[facility] Encounter [id number] 02/27 [facility] Out[facility] Encounter [id number]/19 [facility] OFFICE O/P EST MOD 30 MIN [id number] Diagnos is: ICD-10- CM D64.9 Anemia, unspeci fied DIONI,DA VID A 03/22 [facility] [place] [facility] Out[facility] Encounter [id number] 03/22 [facility] Out[facility] Encounter [id number] 03/22 [facility] Outpatient Encounter [id number] 03/27 [facility] Outpatient Encounter [id number] 04/10 [facility] Outpatient [facility]counter [id number] 04/11 [facility] Out[facility] Encounter [id number] 04/24 [facility] OFFICE O/P EST LOW 20 MIN [id number] Diagnos is: ICD-10- CM L60.3 Nail dystrop hy ROSS,CHARL ES F 04/24 [place] [facility] [id number] Diagnos is: ICD-10- CM K03.6 Deposit s [accret ions] on teeth MAUREEN ANDERSEN K 04/25 [facility] Out[facility] Encounter [id number] 04/26 [facility] Out[facility] Encounter [id number]/05 [facility] Out[facility] Encounter [id number]/24 [facility] Out[facility] Encounter [id number] 1.05/25 [facility] Out[facility]counter [id number] 05/25 [facility] Out[facility]counter [id number] 05/26 [facility] Out[facility] Encounter [id number] [facility] Out[facility] Encounter [id number] 1.05/28 [facility] Out[facility]counter [id number] 05/28 [facility] Out[facility] Encounter [id number] 05/29 [facility] Outpatient Encounter [id number] 05/29 [facility] Encounter [id number] 06/03 [facility] Outpatient Encounter [id number] 06/07 [facility] Encounter [id number] 06/08 [facility] Out[facility] Encounter [id number] 06/11 [facility] Out[facility]counter [id number] 06/18 [facility] Out[facility] Encounter [id number] 06/18 [facility] Outpatient Encounter [id number] 06/18 [facility] Outpatient Encounter [id number] 06/19 [facility] COMPRE [place] EXAM [place] 1/ [id number] Diagnos is: ICD-10- CM H35.313 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, bilater al, interme d dry stage LAMAR,LACE Y J 06/26 [facility] Outpatient Encounter [id number] 1.06/26 [facility] ECHO EXAM OF EYE THICKNESS [id number] Diagnos is: ICD-10- CM H40.013 Open angle with borderl ine finding s, low risk, bilater al LAMAR,LACE Y J 06/26 [facility] FUNDUS PHOTOGRAPH Y W/I&R [id number] Diagnos is: ICD-10- CM H35.313 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, bilater al, interme d dry stage LAMAR,LACE Y J 06/26 [facility] FIT SPECTACLES BIFOCAL [id number] Diagnos is: ICD-10- CM Z46.0 Encount er for fit/adj st of spectac les and contact lenses LAMAR,LACE Y J 06/26 [facility] Outpatient Encounter [id number] 06/28 [facility] OFF/OP CNSLTJ NEW/EST MOD 40 [id number] Diagnos is: ICD-10- CM R10.30 Lower abdomin al pain, unspeci fied JENNI NGUYEN MD 07/03 [facility] Out[facility] Encounter [id number] Paul RODRIGUEZ 07/09 [facility] Out[facility] Encounter [id number] 07/16 [facility] Out[facility] Encounter [id number] 07/26 [facility] Outpatient Encounter [id number] 07/26 [facility] Outpatient Encounter [id number] 07/26 [facility] Outpatient Encounter [id number] 08/01 [facility] Out[facility] Encounter [id number] 08/03 [facility] Outpatient Encounter [id number] 08/09 [facility] Outpatient Encounter [id number] 08/16 [facility] OFF/OP EST NOVEMBER X REQ PHY/QHP [id number] Diagnos is: ICD-10- CM K30 Functio nal dyspeps ia JENNI NGUYEN MD 09/04 [facility] Out[facility] Encounter [id number] 09/06 [facility] Outpatient Encounter [id number] 09/25 [facility] Outpatient Encounter [id number] 09/26 [facility] Social History Combined list of available smoking, tobacco, and other social history from Department of Defense and Veterans Affairs facilities. Social History Type Response Date Comment Sour e Tobacco smoking status [facility] VA-TOBACCO NEVER USED 03/22/2024 [facility] [place] [facility] History [facility] tobacco use VA-TOBACCO NEVER USED 03/02/2023 [facility] History of tobacco use VA-TOBACCO NEVER USED 03/04/2022 [facility] History of tobacco use VA-TOBACCO NEVER USED 03/26/2021 [facility] [place] [facility] History of tobacco use VA-TOBACCO NEVER USED 04/10/2020 [facility] D History of tobacco use VA-TOBACCO NEVER USED 09/26/2018 [facility] D History of tobacco use FORMER SMOKER - <100 LIFETIME CIGARETTES 06/26/2018 [place] History of tobacco use LIFETIME NON-TOBACCO USER 11/04/2017 [place] History of tobacco use LIFETIME NON-TOBACCO USER 11/04/2016 [place] History of tobacco use LIFETIME NON-TOBACCO USER 10/09/2015 [place] History of tobacco use HISTORY OF SMOKING 07/23/2005 [place] History of tobacco use LIFETIME NON-SMOKER 08/20/2004 [place] Plan of Care List of future care activities from Department of Veterans Affairs facilities. Additional future care activities may be listed in the Assessment and Plan section. Date/Time Care Activity Care Activity Detail Facili ty 10/24/2024 AMBULATORY - NONE AMBULATORY - NONE [facility] [place] [facility] 10/30/2024 AMBULATORY - MEDICINE AMBULATORY - MEDICI [place] 12/03/2024 AMBULATORY - MEDICINE AMBULATORY - [place] [facility] [place] [facility] 12/26/2024 AMBULATORY - MEDICINE AMBULATORY - [place]ICI [place] [facility] [place] [facility] 12/26/2024 [facility] Advance Directives List of completed, amended, or rescinded Advance Directives on record at Department of [facility] facilities. An actual copy of the Directive is not included. Date Advance Directive Provider Source 11/04/2016 ADVANCE DIRECTIVE RONY [place] [facility]
--- OUTSIDE RECORDS SUMMARY | 2024-09-27 18:45 | XMS_ITS | Encounter Summary ---
Author Name Department [place] Organization [place] Address [address] [place] [address] Care Team Providers Care Head Bookkeeper Name Role Phone WAYNE WHEATLEY Primary Care Provider [facility] Insurance Providers: All historical and current [...] Policy [facility]) MEDICARE ADVANTAGE [facility] ([facility]) Aug 25, 2001 [facility] ([facility]) [id number] ADRIANA GELLER PATIENT MEDICARE ([facility]) MEDICARE (M) PART A Oct 23, 2016 PART A [id number] [phone] QUE GELLER PATIENT MEDICARE ([facility]) MEDICARE (M) PART B Oct 23, 2016 PART B [id number] [phone] QUE GELLER PATIENT MEDICARE ([facility]) MEDICARE (M) PART B Jul 25, 2011 PART B [id number] 97A QUE GELLER PATIENT MEDICARE ([facility]) MEDICARE (M) PART B Jul 25, 2011 PART B [id number] QUE GELLER PATIENT MEDICARE ([place]NR) MEDICARE (M) PART B Jul 25, 2011 PART B [id number] 97A QUE GELLER PATIENT MEDICARE ([place]) MEDICARE (M) PART B Jul 25, 2011 PART B [id number] QUE GELLER PATIENT MEDICARE ([place]) MEDICARE (M) PART A Apr 24, 2004 PART A [id number] 97A QUE GELLER PATIENT MEDICARE ([place]) MEDICARE (M) PART A Apr 24, 2004 PART A [id number] [phone] QUE GELLER PATIENT MEDICARE ([place]) MEDICARE (M) PART A Apr 24, 2004 PART A [id number] 97A QUE GELLER PATIENT MEDICARE ([place]) MEDICARE (M) PART A Apr 24, 2004 PART A [id number] QUE GELLER PATIENT Selected Encounter This section includes the information on record at [place] for the Encounter. Date/Time Encounter Type Encounter Description Reason Pro vider Source IHE Encounter Template Text not used by [place] Advance Directives: All historical and current Section [...] ADVANCE DIRECTIVE RONY URRUTIA [place] CNTR L CORINNA MARTINEZ [facility]
--- OUTSIDE RECORDS SUMMARY | 2024-09-27 18:45 | XMS_ITS | Encounter Summary ---
Author Name Department [place] Organization [place] Address [address] [place] [address] Care Team Providers Care Shearing Shed Hand Name Role Phone WAYNE WHEATLEY Primary Care Provider [facility] e Insurance Providers: All historical and current [...] Patient's Relationship to Policy [facility]) MEDICARE ADVANTAGE [facility] ([facility]) Aug 25, 2001 [facility] ([facility]) [id number] ADRIANA GELLER PATIENT MEDICARE ([facility]) MEDICARE (M) PART A Oct 23, 2016 PART A [id number] QUE GELLER PATIENT MEDICARE ([facility]) MEDICARE (M) PART B Oct 23, 2016 PART B [id number] [phone] QUE GELLER PATIENT MEDICARE ([facility]) MEDICARE (M) PART B Jul 25, 2011 PART B [id number] 97A QUE GELLER PATIENT MEDICARE ([facility]) MEDICARE (M) PART B Jul 25, 2011 PART B [id number] QUE GELLER PATIENT MEDICARE (WNR) MEDICARE (M) PART B Jul 25, 2011 PART B [id number] 97A QUE GELLER PATIENT MEDICARE (WNR) MEDICARE (M) PART B Jul 25, 2011 PART B [id number] QUE GELLER PATIENT MEDICARE ([place]NR) MEDICARE (M) PART A Apr 24, 2004 PART A [id number] 97A QUE GELLER PATIENT MEDICARE (WNR) MEDICARE (M) PART A Apr 24, 2004 PART A [id number] [phone] QUE GELLER PATIENT MEDICARE (WNR) MEDICARE (M) PART A Apr 24, 2004 PART A [id number] 97A QUE GELLER PATIENT MEDICARE ([place]NR) MEDICARE (M) PART A Apr 24, 2004 PART A [id number] [phone] QUE GELLER PATIENT Selected Encounter This section includes the information on record at [place] for the Encounter. Date/Time Encounter Type Encounter Description Reason Pro vider Source IHE Encounter Template Text not used by [place] Advance Directives: All historical and current Section Date Range: From patient's date of to the date document was created. This section includes ALL of a patient's completed or amended [place] Advance and Rescinded Directives. The entries below indicate that a directive exists for the patient, but an actual copy is not included with this document. The data comes from all [place] facilities. Date Advance Directives Provider Source Nov 04, 2016 ADVANCE DIRECTIVE RONY URRUTIA [place] CNTR L CORINNA MARTINEZ [facility]
--- OUTSIDE RECORDS SUMMARY | 2024-09-27 18:45 | XMS_ITS | Encounter Summary ---
Author Name Department [place] Organization [place] Address [address] [place] [address] Care Team Providers Care Automotive Collision Repair Instructor Name Role Phone WAYNE WHEATLEY Primary Care [...] Patient's Relationship to Policy [facility]) MEDICARE ADVANTAGE [facility] ([facility]) Aug 25, 2001 [facility] ([facility]) [id number] [id number] TIERNEYADRIANA RUSSO PATIENT MEDICARE ([facility]) MEDICARE (M) PART A Oct 23, 2016 PART A [id number] QUE GELLER PATIENT MEDICARE ([facility]) MEDICARE (M) PART B Oct 23, 2016 PART B [id number] QUE GELLER PATIENT MEDICARE (WN) MEDICARE (M) PART B Jul 25, 2011 PART B [id number] [phone] QUE GELLER PATIENT MEDICARE ([facility]) MEDICARE (M) PART B Jul 25, 2011 PART B [id number] QUE GELLER PATIENT MEDICARE (WNR) MEDICARE (M) PART B Jul 25, 2011 PART B [id number] 97A QUE GELLER PATIENT MEDICARE (WNR) MEDICARE (M) PART B Jul 25, 2011 PART B [id number] [phone] QUE GELLER PATIENT MEDICARE ([place]NR) MEDICARE (M) PART A Apr 24, 2004 PART A [id number] 97A TIERNEYOZQUE SALINAS PATIENT MEDICARE (WNR) MEDICARE (M) PART A Apr 24, 2004 PART A [id number] QUE GELLER PATIENT MEDICARE (WNR) MEDICARE (M) PART A Apr 24, 2004 PART A [id number] 97A QUE GELLER PATIENT MEDICARE ([place]NR) MEDICARE (M) PART A Apr 24, 2004 PART A [id number] QUE GELLER PATIENT Selected Encounter This section includes the information on record at [place] for the Encounter. Date/Time Encounter Type Encounter Description Reason Pro vider Source Sep 06, 2024 12:00 AM Outpatient Encounter EVENT (HISTORICAL) [...] Appointment Type Appointme nt Facility Name Sep 13, 2024 02:30 PM AMBULATORY [place]ICINE [place] [facility] Sep 26, 2024 01:00 PM AM[place]ULATORY [place]IC[place] [facility] Oct 24, 2024 04:00 PM [place] [facility] Oct 30, 2024 01:00 PM [facility] [place] December 03, 2024 03:30 PM AMBULATORY - [place]ICINE [place] [facility] Dec 26, 2024 01:30 PM AMBULATORY - MEDICINE [place] [facility] Dec 26, 2024 02:30 PM AMBULATORY - MEDICINE [place] [facility] Active, Pending, and Scheduled Orders This section includes a listing of several types of active, pending, and scheduled orders, including clinic medications orders, diagnostic test orders, procedure orders and consult orders; where the start date of the order is 45 days before the date of the Encounter or 45 days after the date of theEncounter. The data comes from all [place] treatment facilities. Test Date/Time Test Type Test Details Facility Name Jul 27, 2024 09:01 AM Consult Order COMMUNITY CARE-PAIN MANAGEMENT [facility] Consultant's [facility] Aug 07, 2024 09:01 AM Consult Order COMMUNITY CARE-GI GENERAL [facility] Consultant's [facility] Social History: Smoking Status (Most current) [...] 22, 2024 12:43 PM VA-TOBACCO NEVER USED [facility] Tobacco Use History This section includes a history of the smoking, or tobacco-related health factors, that were collected on or before the date of the Encounter. The data comes from the [place] facility where the Encounter took place. Date/Time Smoking Status/Tobacco Use Comment F acility Mar 26, 2021 02:25 PM VA-TOBACCO NEVER USED [facility] Advance Directives: All historical and current [...] Nov 04, 2016 ADVANCE DIRECTIVE RONY URRUTIA [facility] Encounter Notes: All associated encounter notes This section contains the clinical notes associated to the Encounter. Date/Time Encounter Note(s) Provider Source Sep 06, 2024 12:00 AM NONVA NOTE: LOCAL TITLE: NON-VA OUTPATIENT NOTES STANDARD TITLE: NONVA NOTE DATE OF NOTE: SEP 06, 2024 ENTRY DATE: SEP 20, 2024@08:21:54 AUTHOR: AURA SIMMONS EXP COSIGNER: URGENCY: STATUS: COMPLETED VistA Imaging - Scanned Document SCANNED DOCUMENT SIGNATURE NOT REQUIRED Electronically Filed: 09/20/2024 by: AURA GUTIÉRREZ [facility]L [facility]
--- OUTSIDE RECORDS SUMMARY | 2024-09-27 18:45 | XMS_ITS | Encounter Summary ---
Author Name Department [place] Organization [place] Address [address] [place] [address] Care Team Providers Care Thread Marker Name Role Phone WAYNE WHEATLEY Primary Care [...] Name Patient's Relationship to Policy [facility]) MEDICARE ADVANTAGE [facility] ([facility]) Aug 25, 2001 [facility] ([facility]) [id number] [phone] DOMADRIANA SALINAS JOHN PATIENT MEDICARE ([facility]) MEDICARE (M) PART A Oct 23, 2016 PART A [id number] QUE GELLER PATIENT MEDICARE ([facility]) MEDICARE (M) PART B Oct 23, 2016 PART B [id number] QEU GELLER PATIENT MEDICARE ([facility]) MEDICARE (M) PART B Jul 25, 2011 PART B [id number] 97A QUE GELLER PATIENT MEDICARE ([facility]) MEDICARE (M) PART B Jul 25, 2011 PART B [id number] TIERNEYOZQUE SALINAS PATIENT MEDICARE ([place]NR) MEDICARE (M) PART B Jul 25, 2011 PART B [id number] 97A TIERNEYOZQUE SALINAS PATIENT MEDICARE (WNR) MEDICARE (M) PART B Jul 25, 2011 PART B [id number] QUE GELLER PATIENT MEDICARE ([place]NR) MEDICARE (M) PART A Apr 24, 2004 PART A [id number] 97A TIERNEYOZQUE SALINAS PATIENT MEDICARE (WNR) MEDICARE (M) PART A Apr 24, 2004 PART A [id number] TIERNEYOZQUE SALINAS PATIENT MEDICARE (WNR) MEDICARE (M) PART A Apr 24, 2004 PART A [id number] 97A QUE GELLER PATIENT MEDICARE (WNR) MEDICARE (M) PART A Apr 24, 2004 PART A [id number] QUE GELLER PATIENT Selected Encounter This section includes the information on record at [place] for the Encounter. Date/Time Encounter Type Encounter Description Reason Pro vider Source Sep 04, 2024 04:00 PM OFF/OP EST NOVEMBER X REQ PHY/QHP GASTROENTEROLOGY ICD-10-CM K30 Functional dyspepsia JAYJAY NGUYEN MD IHE Encounter Template Text not used by [place] Assessments - Encounter Diagnoses This section includes the primary and secondary diagnoses documented for the Encounter. Date/Time Primary/Secondary Diagnosis Diagnosis Name Provider Source Sep 05, 2024 07:44 AM PRIMARY Functional dyspepsia JESSICA CARPENTER [facility] Plan of Treatment: Future Appointments (+ 6 months) and Future Tests (+/- 45 days) The Plan of Treatment section includes future care activities for the patient from all [place] treatmentfacilities. This section includes future appointments and future orders which are active, pending or scheduled. Future Appointments This section includes appointments that were scheduled to occur 6 months from the date of the Encounter, up to a maximum of 20 appointments. The data comes from all [place] treatment facilities. Appointment Date/Time Appointment Type Appointme nt Facility Name Sep 13, 2024 02:30 PM AMBULATORY - MEDICINE [place] [facility] Sep 26, 2024 01:00 PM AMBULATORY - MEDICINE [place] [facility] Oct 24, 2024 04:00 PM AMBULATORY - NONE [place] [facility] [place] [facility] Oct 30, 2024 01:00 PM [facility] December 03, 2024 03:30 PM AMBULATORY - MEDICINE [place] [facility] Dec 26, 2024 01:30 PM AMBULATORY - MEDICINE [place] [facility] Dec 26, 2024 02:30 PM AMBULATORY - MEDICINE [place] [facility] Active, Pending, and Scheduled Orders This section includes a listing of several types of active, pending, and scheduled orders, including clinic medications orders, diagnostic test orders, procedure orders and consult orders; where the start date of the order is 45 days before the date of the Encounter or 45 days after the date of theEncounter. The data comes from all [facility] facilities. Test Date/Time Test Type Test Details Facility Name Jul 27, 2024 09:01 AM Consult Order COMMUNITY CARE-PAIN MANAGEMENT [facility] Department Chairperson's [facility] Aug 07, 2024 09:01 AM Consult Order COMMUNITY CARE-GI GENERAL [facility] Department Chairperson's [facility] Advance Directives: All historical and current Section Date Range: From patient's date of to the date document was created. This section includes ALL of a patient's completed or amended [place] Advance and Rescinded Directives. The entries below indicate that a directive exists for the patient, but an actual copy is not included with this document. The data comes from all [place] facilities. Date Advance Directives Provider Source Nov 04, 2016 ADVANCE DIRECTIVE RENANRONY [place] [facility] Encounter Notes: All associated encounter notes This section contains the clinical notes associated to the Encounter. Date/Time Encounter Note(s) Provider Source Sep 04, 2024 04:00 PM GASTROENTEROLOGY N OTE: LOCAL TITLE: MED/GASTROENTEROLOGY STANDARD TITLE: GASTROENTEROLOGY NOTE DATE OF NOTE: SEP 04, 2024@16:00 ENTRY DATE: SEP 03, 2024@23:58:07 AUTHOR: JESSICA CARPENTER COSIGNER: JAYJAY NGUYEN MD URGENCY: STATUS: COMPLETED GI Telephone Note Spoke to patient over the phone. He was busy this afternoon and would not be able to make it to our [facility] appointment. He shared that he was feeling better with less pain since our last visit after starting Nortriptyline. I instructed him to continue at this current dose and we would reschedule his follow-up appointment. /jose cruz/ JESSICA CARPENTER Gastroenterology Fellow Signed: 09/05/2024 00:21 /jose cruz/ JAYJAY NGUYEN MD Chief, Gastroenterology Cosigned: 09/05/2024 07:44 JESSICA CARPENTER [facility]
--- OUTSIDE RECORDS SUMMARY | 2024-09-27 18:45 | XMS_ITS ---
Author Name [place] Address [address] [place] [address] Care Team Providers Care Account Manager Employee Benefits Name Role Phone WAYNE WHEATLEY Primary Care [...] Name Patient's Relationship to Policy [facility]) MEDICARE ADVANTAGE [facility] ([facility]) Aug 25, 2001 [facility] ([facility]) [id number] [phone] ADRIANA GELLER PATIENT MEDICARE ([facility]) MEDICARE () PART A Oct 23, 2016 PART A [id number] QUE GELLER PATIENT MEDICARE ([facility]) MEDICARE () PART B Oct 23, 2016 PART B [id number] QUE GELLER PATIENT MEDICARE ([facility]) MEDICARE () PART B Jul 25, 2011 PART B [id number] 97A QUE EGLLER PATIENT MEDICARE ([facility]) MEDICARE (M) PART B Jul 25, 2011 PART B [id number] [phone] QUE GELLER PATIENT MEDICARE ([place]) MEDICARE (M) PART B Jul 25, 2011 PART B [id number] 97A QUE GELLER PATIENT MEDICARE ([place]) MEDICARE (M) PART B Jul 25, 2011 PART B [id number] [phone] QUE GELLER PATIENT MEDICARE ([place]) MEDICARE (M) PART A Apr 24, 2004 PART A [id number] [phone] QUE GELLER PATIENT MEDICARE ([place]) MEDICARE (M) PART A Apr 24, 2004 PART A [id number] [phone] QUE GELLER PATIENT MEDICARE ([place]) MEDICARE (M) PART A Apr 24, 2004 PART A [id number] [phone] QUE GELLER PATIENT MEDICARE ([facility]) MEDICARE (M) PART A Apr 24, 2004 PART A [id number] QUE GELLER PATIENT Selected Encounter This section includes the information on record at [place] for the Encounter. Date/Time Encounter Type Encounter Description Reason Pro vider Source Sep 25, 2024 12:18 PM Outpatient Encounter TELEPHONE TRIAGE IHE Encounter [...] Appointment Type Appointme nt Facility Name Sep 26, 2024 01:00 PM AMBULATORY - MEDICINE [place] [facility] Oct 24, 2024 04:00 PM AMBULATORY - NONE [place] [facility] [place] [facility] Oct 30, 2024 01:00 PM AMBUL[facility]ORY - [facility]ICINE [place] December 03, 2024 03:30 PM [facility] [place] [facility] Dec 26, 2024 01:30 PM [facility] Dec 26, 2024 02:30 PM AMBULATORY - MEDICINE [facility] Social History: Smoking Status (Most current) [...] 22, 2024 12:43 PM VA-TOBACCO NEVER USED [facility] Tobacco Use History This section includes a history of the smoking, or tobacco-related health factors, that were collected on or before the date of the Encounter. The data comes from the [place] facility where the Encounter took place. Date/Time Smoking Status/Tobacco Use Comment F acility Mar 26, 2021 02:25 PM VA-TOBACCO NEVER USED [facility] Advance Directives: All historical [...] Nov 04, 2016 ADVANCE DIRECTIVE RONY URRUTIA [facility] Encounter Notes: All associated encounter notes This section contains the clinical notes associated to the Encounter. Date/Time Encounter Note(s) Provider Source Sep 25, 2024 12:18 PM RN PROGRESS NOTE: LOCAL TITLE: CCC: CLINICAL TRIAGE STANDARD TITLE: RN PROGRESS NOTE DATE OF NOTE: SEP 25, 2024@12:18:28 ENTRY DATE: SEP 25, 2024@12:18:28 AUTHOR: IVET RODRIGUEZ COSIGNER: URGENCY: STATUS: COMPLETED CCC: CLINICAL TRIAGE Has ADDENDA Patient Demographics Patient Name: KAM GELLER Patient Primary Address: [address] [place] [id number] Patient Primary Phone: [phone] Patient : 1950 Patient Age: 73 Call Back Number: [phone] Caller/Recipient Relation to Patient: Self Caller Name: KAM GELLER Emergency Contact: MEI GELLER Triage Summary Conducted triage/discussed symptoms Utilized the Triage Tool: Yes Chief Complaint: Constipation System WHEN: Within 3 Days Nurse's Recommendation / WHEN: Within 3 Days System WHERE: Clinic Nurse's Recommendation / WHERE: Clinic/[facility] Patient Disposition Patient/Caregiver agrees to plan of care: Yes Patient WHERE: Appointment Patient WHEN: Within 3 days Nursing Plan and Disposition Referred for [facility] Virtual Clinic Visit Transferred patient to Sched & Admin-VCV Referred Patient for In-Person Appt Transferred patient to Sched & Admin-Apt Transferred patient to facility [facility] Other course(s) of action Generated msg to PACT/Provider Provided guidance for worsening symptoms: *Caller/Patient* advised to call facilities [place] Clinical Contact Center or seek immediate medical attention for new or worsening symptoms Nurse Summary Nurse Summary: [facility] called stating, he has had ongoing constipation and has not had a regular bowel movement in ten days . He is having small amounts of stool. Has been taking MiraLAX, bisacodyl tablets and self-induced enema with little results. His appetite is small and only eats once a day. Two months ago, he went to the ER with severe stomach cramps and all the tests were negative and it resolved with some medication. Since then, his bowel movements are not normal. He also tried Magnesium citrate that caused him to vomit and only resulted in a small bowel movement. He usually has a daily bowel movement but not lately. He has been seen by a barrel filler head and had tests done last year and the tests were negative. He has had his gallbladder removed in the past and hasn't felt the same since. He reports his stools are loose and sometimes formed. *See [facility] details below for additional +/- signs & symptoms. RN RECOMMENDATION: F2F or telephone visit with PCP within 3 days or telephone visit with CCC DRIVE THRU ORDER TAKER within 3 days. The agrees with this plan. Warm transfer to [facility] scheduling queue to assist with setting up the appointment. IF NO APPOINTMENTS ARE AVAILABLE THE WOULD LIKE A CALL BACK TO SET UP AN APPOINTMENT TO BE SEEN. DISCUSSED IF SYMPTOMS WORSEN TO PRESENT TO THE ER. WILL FORWARD TO PACT FOR FOLLOW UP. Discussed contacting the [facility] triage for any new or worsening sx Clinical Contact Center Codes Clinic/Location: V1 CWM PHONE [facility] RN Decision Support System Output: Triage Complete Triage Date: 09/25/2024, 12:15 PM Triage Note: Decision Support Tool Used: [facility] Phone Triage Tue, 25 Sep 2024 16:56:37 +0000 [facility] Demographics 73 y/o Male Results CC: Constipation Software suggested: Within 3 Days Software suggested follow-up location: Clinic, consider [facility] care Values and Measures Duration of CC: 10 Days Positive Responses HPI: constipation, severe PSH: abdominal surgery Negative Responses Denies: HPI: abdominal pain Denies: HPI: abdominal swelling, new Denies: HPI: anal or rectal pain Denies: HPI: hematochezia Denies: HPI: vomiting Denies: PMH: bowel obstruction Education Verbal Education Provided for: Constipation Home Care IMPORTANT: This note was created by [facility] Clinical Contact Center staff. Please do not alert the staff member by adding them as a signer for future communications. Alerts are not monitored by this user. /shantel CROCKER RN VISN1 [facility] RN Signed: 09/25/2024 12:18 Receipt Acknowledged By: 09/25/2024 16:29 /shantel SHERIDAN REGISTERED NURSE 09/26/2024 10:50 /jose cruz/ GALINDO MCCRACKEN LPN LPN 09/26/2024 ADDENDUM STATUS: COMPLETED Message forwarded to provider to review and advise. [facility] had [facility] Appt scheduled on 09/26/2024 to address concerns, was no show. /shantel SHERIDAN REGISTERED NURSE Signed: 09/26/2024 13:29 Receipt Acknowledged By: * AWAITING SIGNATURE * WAYNE WHEATLEY HEIDI M [place] [facility]
--- OUTSIDE RECORDS SUMMARY | 2024-09-27 18:46 | XMS_ITS ---
Author Name [facility] [place] [facility] [place] [facility] [place] Address [address] [place] [address] Care Team Providers Care Veterinary Surgery Technologist Name Role Phone WAYNE WHEATLEY Primary Care [...] Policy [facility]) MEDICARE ADVANTAGE [facility] ([facility]) Aug 25, 2001 [facility] ([facility]) [id number] ADRIANA GELLER PATIENT MEDICARE ([facility]) MEDICARE () PART A Oct 23, 2016 PART A [id number] QUE GELLER PATIENT MEDICARE ([facility]) MEDICARE () PART B Oct 23, 2016 PART B [id number] [phone] QUE GELLER PATIENT MEDICARE ([facility]) MEDICARE () PART B Jul 25, 2011 PART B [id number] QUE GELLER PATIENT MEDICARE ([facility]) MEDICARE (M) PART B Jul 25, 2011 PART B [id number] QUE GELLER PATIENT MEDICARE (WNR) MEDICARE (M) PART B Jul 25, 2011 PART B [id number] QUE GELLER PATIENT MEDICARE (WNR) MEDICARE (M) PART B Jul 25, 2011 PART B [id number] QUE GELLER PATIENT MEDICARE (WNR) MEDICARE (M) PART A Apr 24, 2004 PART A [id number] [phone] QUE GELLER PATIENT MEDICARE (WNR) MEDICARE (M) PART A Apr 24, 2004 PART A [id number] [phone] QUE GELLER PATIENT MEDICARE (WNR) MEDICARE (M) PART A Apr 24, 2004 PART A [id number] QUE GELLER PATIENT MEDICARE (WNR) MEDICARE (M) PART A Apr 24, 2004 PART A [id number] QUE GELLER PATIENT Selected Encounter This section includes the information [place] at [place] for the Encounter. Date/Time Encounter Type Encounter Description Reason Pro vider Source Sep 26, 2024 01:23 PM Outpatient Encounter TELEPHONE TRIAGE IHE Encounter [...] Appointment Type Appointme nt Facility Name Oct 24, 2024 04:00 PM AMBULATORY - NONE [place] [facility] [place] [facility] Oct 30, 2024 01:00 PM [facility] December 03, 2024 03:30 PM AMBULATORY [place]IC[place] [facility] [place] [facility] Dec 26, 2024 01:30 PM AMBULATORY - [place]IC[place] [facility] [place] [facility] Dec 26, 2024 02:30 PM AMBULATORY - MEDICINE [facility] Social History: Smoking Status (Most current) [...] 22, 2024 12:43 PM VA-TOBACCO NEVER USED [facility] Tobacco Use History This section includes a history of the smoking, or tobacco-related health factors, that were collected on or before the date of the Encounter. The data comes from the [place] facility where the Encounter took place. Date/Time Smoking Status/Tobacco Use Comment F gerardo Mar 26, 2021 02:25 PM VA-TOBACCO NEVER USED [facility] Advance Directives: All historical and current [...] Nov 04, 2016 ADV[facility]IVE [facility] Encounter Notes: All associated encounter notes This section contains the clinical notes associated to the Encounter. Date/Time Encounter Note(s) Provider Source Sep 26, 2024 01:23 PM TELEHEALTH NOTE: LOCAL TITLE: TELE EMERGENCY CARE NOTE STANDARD TITLE: TELEHEALTH NOTE DATE OF NOTE: SEP 26, 2024@13:23 ENTRY DATE: SEP 26, 2024@13:23:38 AUTHOR: ANG ROSE COSIGNER: URGENCY: STATUS: COMPLETED This is a tele-emergency care visit to address acute/urgent issues. Definitive care on chronic medical issues will be deferred to routine Primary Care appointment/provider. Consult Origin: Referral from the Clinical Contact Center/Call Center Type of Visit: Phone Visit: Visit conducted by telephone. Location/emergency number confirmed. Emergency contact information was obtained as follows: Patient's current address [address], [place] [address] Patient's Phone Number:PATIENT PHONE - [phone] PHONE NUMBER [CELLULAR] - [phone] Primary NOK: MEI GELLER Relation: [address], [place] [address] Subjective: NO SHOW Called pt on both home and cell phone # x 3 during scheduled appt time, no answer. LM on VM to call back PC/[facility] to reschedule appt if still needed. Will alert PACT. ACTIVE PROBLEMS: Code Description Z77.29 Exposure to potentially hazardous substance ([facility] [id number]) E66.9 Obesity ([facility] 806716374) D64.9 Anemia ([facility] 818716772) L84. Callus ([facility] 401184535) S27.0XXD Traumatic pneumothorax ([facility] 52853170) R60.9 Edema ([facility] 954340698) K31.84 Gastroparesis ([facility] 967779044) Z98.890 H/O: surgery ([facility] 329279326) G89.4 Chronic pain ([facility] 78568223) R69. Lumbar DXA scan result normal ([facility] 949521983) R69. ECG: normal sinus rhythm ([facility] 941905823) 719.45 Hip Pain (ICD-9-CM 719.45) V76.51 Screening for Malignant Neoplasms of colon (ICD-9-CM V76.51) M54.50 Back pain ([facility] 588631742) E03.9 Hypothyroidism ([facility] 85834156) E78.5 Hyperlipidemia ([facility] 21291982) D56.1 beta thalassemia ([facility] 86661368) V43.65 Knee Joint replacement Status (Prosthetic or Artificial Device) (ICD-9-CM V43.65) F33.9 Depression ([facility] 46154591) R12. Heartburn ([facility] 77683496) ALLERGIES/ADR: ERYTHROMYCIN, NEURONTIN, FLOMAX Active Outpatient Medications (including Supplies): CHOLECALCIF 25MCG (D3-1,000UNIT) TAB TAKE ONE TABLET BY ACTIVE MOUTH ONCE DAILY FOR VITAMIN SUPPLEMENTATION Indication: FOR VITAMIN D DEFICIENCY CHOLESTYRAMINE 4GM/9GM ORAL PWD PKT TAKE 1 PACKET BY MOUTH ACTIVE ONCE DAILY CYANOCOBALAMIN 1000MCG TAB TAKE ONE TABLET BY MOUTH ONCE ACTIVE DAILY FOR VITAMIN SUPPLEMENTATION Indication: FOR PREVENTION OF VITAMIN B12 DEFICIENCY DOCUSATE NA 50MG/SENNOSIDES 8.6MG TAB TAKE 1 TABLET BY ACTIVE MOUTH TWICE DAILY Indication: FOR CONSTIPATION FERROUS SULFATE 325MG TAB TAKE ONE TABLET BY MOUTH ONCE ACTIVE DAILY TO SUPPLEMENT IRON LEVOTHYROXINE NA 125MCG TAB TAKE ONE TABLET BY MOUTH EVERY ACTIVE MORNING 30 MINUTES BEFORE BREAKFAST TAKE ON AN EMPTY STOMACH WITH A FULL GLASS OF WATER Indication: FOR THYROID LIDOCAINE 5% OINT APPLY SMALL AMOUNT TOPICALLY ONCE DAILY ACTIVE NEEDED Indication: FOR ITCHING MAGNESIUM OXIDE 420MG TAB TAKE ONE TABLET BY MOUTH ONCE ACTIVE DAILY Indication: Migraine MULTIVIT/OPHTH AREDS2/LUTE/ZEAX CAP/TAB TAKE 1 CAPSULE BY ACTIVE MOUTH TWICE DAILY IN THE MORNING AND EVENING, WITH FOOD PANTOPRAZOLE NA 40MG EC TAB TAKE ONE TABLET BY MOUTH EVERY ACTIVE MORNING 30 MINUTES BEFORE BREAKFAST Indication: FOR EXCESSIVE PRODUCTION OF STOMACH ACID PAROXETINE HCL 40MG TAB TAKE ONE TABLET BY MOUTH DAILY ACTIVE PSYLLIUM ORAL PWD TAKE 2 TEASPOONFULS BY MOUTH ONCE DAILY ACTIVE (MIX WITH AT LEAST 8OZ. OF WATER OR OTHER FLUID) Indication: FOR CONSTIPATION SIMVASTATIN 40MG TAB TAKE ONE-HALF TABLET BY MOUTH AT ACTIVE BEDTIME FOR CHOLESTEROL Indication: FOR HIGH CHOLESTEROL SUCRALFATE 1GM TAB TAKE ONE TABLET BY MOUTH TWICE DAILY ON ACTIVE AN EMPTY STOMACH. TAKE UPON AWAKENING AND BEFORE BED Non-VA LORAZEPAM 0.5MG TAB 0.5MG BY MOUTH ONCE DAILY ACTIVE NEEDED Non-VA MARIJUANA MISCELLANEOUS DIRECTED ACTIVE Non-VA NORTRIPTYLINE HCL 10MG CAP 10MG BY MOUTH AT BEDTIME ACTIVE Indication: gastroparesis Non-VA PROBIOTIC (CULTURELLE DIGESTIVE DAILY) CAP/TAB BY ACTIVE MOUTH ONCE DAILY 18 Total Medications Current medications reviewed with patient/caregiver and reconciliation of medications related to today's visit completed, including non-VA medications and discrepancies, if identified, were addressed. Medication changes and the importance of medication management were reviewed with the patient/caregiver today based on individual needs. Patient/caregiver acknowledged understanding of instructions as stated. Objective: Reason for Referral: Ear/Nose/Throat/Respirator y Assessment/Impression: Plan: NO SHOW Called pt on both home and cell phone # x 3 during scheduled appt time, no answer. LM on to call back PC/[facility] to reschedule appt if still needed. Will alert PACT. Issue resolved with Tele Emergency Care appointment Patient verbalizes understanding of the care plan Time spent in telephone/video visit: Minutes: 5 /jose cruz/ ANG FORD 1 [facility] Medical Creche Attendant Signed: 09/26/2024 13:23 Receipt Acknowledged By: 09/26/2024 13:27 /jose cruz/ LUCAI SHERIDAN REGISTERED NURSE * AWAITING SIGNATURE * WAYNE WHEATLEY NATASHA M [place] [facility]
--- OUTSIDE RECORDS SUMMARY | 2024-09-27 18:46 | XMS_ITS | Clinical Summary ---
Author Organization [facility] Address [address] [place] [address] Phone Care Team Providers Care Fishing Tool Technician Oil Well Name Role Phone El Horner Primary Care Provider [phone] Allergies No known active allergies Medications aspirin [...] Date Site/Laterality Comments CARPAL TUNNEL RELEASE PROCEDURE: SD NEUROPLASTY &/TRANSPOS MEDIAN NRV CARPAL TUNNE; COMMENT: BILAT TOTAL KNEE ARTHROPLASTY PROCEDURE: HISTORICAL TOTAL KNEE REPLACE; COMMENT: LEFT 2002 ESOPHAGOGASTRODUODENOSCOPY 08/17/07 PROCEDURE: SD EGD TRANSORAL BIOPSY SINGLE/MULTIPLE; COMMENT: Normal esophagus, [...] attempted x 2 during 2014 at the [facility]. Suboptimal bowel prep both times. Consider [...] * Annual BMP Blood Test (12/11/2021) Pathologist [facility] Annual BMP Blood Test abstracted [facility] Provider HEALTH MAINTENANCE Final Result * (ABNORMAL) Lipid panel (12/11/2021) [facility] LDL/HDL Ratio 3 0 - 4 Triglycerides 70 0 - 150 mg/dL Cholesterol 171 0 - 200 mg/dL HDL 53 >=40 mg/dL LDL Cholesterol 104(A) 0 - 100 mg/dL Blood Venous blood specimen / Unknown Critical access hospital LAB BLOOD ORDERABLES Mady l Result * Colonoscopy (09/08/2021) [facility] Colonoscopy no interpretation , abstracted Anatomical Region Laterality Modality Other Critical access hospital HEALTH MAINTENANCE Final Result * Hepatitis C Screening (09/24/2014) [facility] Hepatitis C Screening abstracted [facility] Provider HEALTH MAINTENANCE Final Result from Last 3 Months or Most Recently Relevant to Health Maintenance Insurance ADMINISTRATION MEDICARE Care Teams Fishing Tool Technician Oil Well Relationship Specialty Start Date End Date El Horner PA [address] [place] [address] PCP - General Internal Medicine 05/26/21
== END 2024-09-27 15:29 | disposition home or self-care (01) ==
PROVIDERS: PCP Hospitalist; Visit Provider Anesthesiology
DX: M43.10 Spondylolisthesis, site unspecified (principal); G89.4 Chronic pain syndrome; M51.369 Other intervertebral disc degeneration, lumbar region without mention of lumbar back pain or lower extremity pain; M50.30 Other cervical disc degeneration, unspecified cervical region; M47.16 Other spondylosis with myelopathy, lumbar region; M47.812 Spondylosis without myelopathy or radiculopathy, cervical region; M47.816 Spondylosis without myelopathy or radiculopathy, lumbar region
CPT/HCPCS: 99213

== ENCOUNTER → 2024-09-27 15:15 | Outpatient (BNVA) | payer OTHER, SELFPAY | PROVIDERS: PCP Hospitalist; Visit Provider Anesthesiology | DX: M43.10 Spondylolisthesis, site unspecified (principal); M51.360 Other intervertebral disc degeneration, lumbar region with discogenic back pain only; M50.30 Other cervical disc degeneration, unspecified cervical region; M47.16 Other spondylosis with myelopathy, lumbar region; M47.812 Spondylosis without myelopathy or radiculopathy, cervical region; M47.816 Spondylosis without myelopathy or radiculopathy, lumbar region; G89.4 Chronic pain syndrome | CPT/HCPCS: 99212 ==

== ENCOUNTER 2024-10-18 15:31 | Outpatient (AMB) | payer OTHER, SELFPAY ==
[2024-10-18 15:33] VITALS: BP 157/72; PULSE 73; O2SAT 94; BMI 30.1
--- NOTE | 2024-10-18 15:33 | MHC.OFFVIS ---
Vital Signs 10/18/24 15:33 Height 5 ft 8 in Weight 198 lb BMI 30.1 BP 157/72 H Blood Pressure Location Lt brachial Position Sitting Pulse 73 Pulse Source Pulse Oximeter Pulse Oximetry (%) 94 Oxygen Delivery Method Room Air Intake Visit Reasons: 2 Week Follow Up Allergies No Known Allergies Allergy (Verified 10/18/24 15:33) HPI Comments Details: El is in my office for intrathecal pain pump dose adjustment as well as follow-up See report of the adjust as below. He is currently receiving Dilaudid bupivacaine and baclofen in his pump. He started to reports some improvement with his pain in the back. He complained more advanced pain in the neck. He reports today that he found neurosurgeon who agreed to remove his spinal cord stimulator surgically implanted in the past in his thoracic spine. I sent him for the CT scan of the cervical spine in preparation for possible trial of SCS of the cervical spine. We are waiting for the CT scan approval for this patient. [facility] Medical History Obesity PTSD (post-traumatic stress disorder) GERD (gastroesophageal reflux disease) Hypercholesteremia Hypothyroid Retrolisthesis of vertebrae Spondylosis, lumbar, with myelopathy Degeneration, intervertebral disc, cervical Disc degeneration, lumbar Chronic pain syndrome Surgical History S/P insertion of spinal cord stimulator History of total left knee replacement Social History Patient Tobacco Use Status: Never used Tobacco Review of Systems Const All systems reviewed & are unremarkable except as noted in HPI and below Physical Exam Vital Signs: Last Vital Signs Pulse 73 10/18/24 15:33 BP 157/72 H 10/18/24 15:33 Pulse Ox 94 10/18/24 15:33 Oxygen Delivery Method Room Air 10/18/24 15:33 BMI result Body Mass Index 30.1 Last Vital Signs Pulse 74 06/30/23 17:30 Resp 16 06/30/23 17:30 BP 137/42 L 06/30/23 17:30 Pulse Ox 99 06/30/23 17:30 O2 Del Method Room Air 06/30/23 17:30 BMI result Body Mass Index 27.9 Const General: cooperative, comfortable, no acute distress and alert Orientation/consciousness: oriented to person, oriented to place, oriented to time and patient oriented x3 Chest Other: Very limited range of motion of the cervical spine. Tenderness on palpation in projection of the almost entire cervical spine. No pain radiation into bilateral upper extremities. Valsalva maneuver aggravates the patient's pain minimally. Resp Effort & Inspection: normal respiratory effort, able to speak in complete sentences, normal respiratory pattern, no audible wheezes, no cough and respiratory effort not decreased Cardio Jugular venous distension: no JVD Back/Spine/Pelvis Thoracic/Lumbar Spine: paraspinal muscle tenderness, thoracic spinal tenderness and lumbar spinal tenderness Neuro General: oriented to person, oriented to place, oriented to time and patient oriented x3 Assessment & Plan Assessment & Plan (1) Retrolisthesis of vertebrae: Code(s): M43.10 - Spondylolisthesis, site unspecified Category: Medical (2) Chronic pain syndrome: Code(s): G89.4 - Chronic pain syndrome Category: Medical (3) Disc degeneration, lumbar: Code(s): M51.36 - Other intervertebral disc degeneration, lumbar region Category: Medical (4) Degeneration, intervertebral disc, cervical: Code(s): M50.30 - Other cervical disc degeneration, unspecified cervical region Category: Medical (5) Spondylosis, lumbar, with myelopathy: Code(s): M47.16 - Other spondylosis with myelopathy, lumbar region Category: Medical (6) Spondylosis of cervical joint without myelopathy: Code(s): M47.812 - Spondylosis without myelopathy or radiculopathy, cervical region Category: Medical Plan: Patient reports severe pain in the cervical and thoracic spine. Nevro spinal cord stimulator was offered to the patient. We will try to obtain psychological evaluation from his psychiatrist at [facility]. If not we will need to send him for [facility] psychological evaluation. Pump adjustment is as below. I continue to escalate the baclofen doses. He reports already moderate improvement on the low back pain. He needs to go for CT of the cervical spine. Discussion as above. (7) Spondylosis of lumbar region without myelopathy or radiculopathy: Code(s): M47.816 - Spondylosis without myelopathy or radiculopathy, lumbar region Category: Medical Plan Today patient is pump was interrogated and continuous dose was increased from 300 micro g of hydromorphone with corresponding dose of bupivacaine of 3.451 mg and baclofen 60 mg to 420 micro g of hydromorphone with corresponding 4.831 mg of bupivacaine and 84.02 micro g of baclofen of 24 hour dose. This constitutes 40% increase of the dose of the medication. He is scheduled for pump refill on 12/13/2024. Patient Instructions: I here by testify that I spent 30 minutes in conversation with this patient as well as planning his care and organizing this note. Coding Level of Care Code Est Pt Level 4 (55173) Diagnoses Retrolisthesis of vertebrae M43.10 Chronic pain syndrome G89.4 Disc degeneration, lumbar M51.36 Degeneration, intervertebral disc, cervical M50.30 Spondylosis, lumbar, with myelopathy M47.16 Spondylosis of cervical joint without myelopathy M47.812 Spondylosis of lumbar region without myelopathy or radiculopathy M47.816
== END 2024-10-18 15:59 | disposition home or self-care (01) ==
LOC: HO.PMC 15:32
PROVIDERS: PCP Hospitalist; Visit Provider Anesthesiology
DX: M43.10 Spondylolisthesis, site unspecified (principal); G89.4 Chronic pain syndrome; M51.369 Other intervertebral disc degeneration, lumbar region without mention of lumbar back pain or lower extremity pain; M50.30 Other cervical disc degeneration, unspecified cervical region; M47.16 Other spondylosis with myelopathy, lumbar region; M47.812 Spondylosis without myelopathy or radiculopathy, cervical region; M47.816 Spondylosis without myelopathy or radiculopathy, lumbar region; Z45.1 Encounter for adjustment and management of infusion pump
CPT/HCPCS: 62367; 99214

== ENCOUNTER → 2024-10-18 15:31 | Outpatient (BNVA) | payer OTHER, SELFPAY | PROVIDERS: PCP Hospitalist; Visit Provider Anesthesiology | DX: M43.10 Spondylolisthesis, site unspecified (principal); G89.4 Chronic pain syndrome; M47.812 Spondylosis without myelopathy or radiculopathy, cervical region; M50.30 Other cervical disc degeneration, unspecified cervical region; M47.16 Other spondylosis with myelopathy, lumbar region; M51.369 Other intervertebral disc degeneration, lumbar region without mention of lumbar back pain or lower extremity pain; Z45.42 Encounter for adjustment and management of neurostimulator; Z79.899 Other long term (current) drug therapy | CPT/HCPCS: 62367; 99212 ==

== ENCOUNTER 2024-12-18 06:38 | Outpatient (REF) | payer OTHER, SELFPAY ==
--- OUTSIDE RECORDS SUMMARY | 2024-12-18 06:43 | XMS_ITS | Continuity of Care Document ---
Author Organization [facility] ter Address [address] [place] [address]- Care Team Providers Care Parking Control Officer Name Role Phone Hakan SAINI, Nuno Primary Care Physician [phone] Encounter [facility] Date(s): 12/13/24 - 12/13/[address] [id number] Discharge Disposition: A-D/C Home Attending Physician: Claude Iniguez MD Admitting Physician: Claude Iniguez MD Referring Physician: Claude Iniguez MD Encounter Type: Disch Daystay Allergies, Adverse Reactions, Alerts No Known Allergies Immunizations Given and Recorded Vaccine Date Status Refusal Reason [id number] 12y+ bivalent booster vax 05/24/22 Recorded SARS-CoV-2 (COVID-19) mRNA-1273 vaccine 06/27/21 R ecorded SARS-CoV-2 (COVID-19) mRNA-1273 vaccine 11/13/20 R ecorded SARS-CoV-2 (COVID-19) mRNA-1273 vaccine 10/16/20 R ecorded Medications acetaminophen 325 mg oral tablet 650 mg, By Mouth, Every 6 hours, Refills 0, Maintenance, 04/25/19 8:00:11 AM EDT Start Date: 04/25/19 Status: Ordered Repeat number: 1 Calcium 600 +D 1 tablet, By Mouth, 2 times a day, 0 Refills, Maintenance, 06/27/13 2:52:29 PM EST Start Date: 06/27/13 Status: Ordered Repeat number: 1 Colace Capsule 100 mg, By Mouth, Daily, Maintenance, 03/29/14 2:21:32 AM EDT Start Date: 03/29/14 Status: Ordered Repeat number: 1 Ecotrin 325 mg oral delayed release tablet 1 tablet = 325 mg, By Mouth, 2 times a day, # 60 tablet, 0 Refills, Maintenance, 11/13/22 8:53:00 AMEDT, EC Tablet, [facility], Partial fill upon patient request if the prescription is for a schedule II opioid drug., 172, cm, 11/13/22 6:59:00 EDT, Height, 96, kg, 11/12/22 20:56:00 EDT, Dry Weight Start Date: 11/13/22 Stop Date: 12/13/22 Status: Ordered Quantity: 60.0 Unit: tablet Repeat number: 1 Levothyroxine = 250 mcg, By Mouth, Daily in AM, 0 Refills, Maintenance, 06/27/13 2:54:41 PM EST Start Date: 06/27/13 Status: Ordered Repeat number: 1 Mag-Ox Tablet = 400 mg, By Mouth, Daily, 0 Refills, Maintenance, 12/13/24 3:50:00 PM EDT, Partial fill upon patient request if the prescription is for a schedule II opioid drug. Start Date: 12/13/24 Status: Ordered Repeat number: 1 meloxicam 15 mg oral tablet 1 tablet = 15 mg, By Mouth, Daily, # 30 tablet, 0 Refills, Maintenance, 11/13/22 8:56:00 AM EDT, Tablet, Partial fill upon patient request if the prescription is for a schedule II opioid drug. Start Date: 11/13/22 Status: Ordered Quantity: 30.0 Unit: tablet Repeat number: 1 MiraLax Powder 1 pack/packet = 17 Gm, By Mouth, Daily, PRN Constipation, 0 Refills, Maintenance, 11/13/22 8:55:00 AM EDT, Powder, Partial fill upon patient request if the prescription is for a schedule II opioid drug. Start Date: 11/13/22 Status: Ordered Repeat number: 1 omeprazole 40 mg oral enteric coated capsule 1 capsule = 40 mg, By Mouth, 2 times a day, Take 30-60 minutes prior to eating or drinking, # 60 capsule, 0 Refills, Maintenance, 03/06/20 3:13:00 PM EDT, CR Capsule, [id number], 175, cm, 03/06/20 14:40:00 EDT, Height, 101.2, kg, 04/24/19 5:45:00 EDT, Dry Weight Start Date: 03/06/20 Status: Ordered Quantity: 60.0 Unit: capsule Repeat number: 1 oxyCODONE 5 mg oral tablet 5 mg, By Mouth, Every 6 hours, PRN, # 28 tablet, Refills 0, Tot. Refills 0, Acute 12/22/24 3:31:00 PM EDT, Pain , Moderate, 12/13/24 3:30:00 PM EDT, Route to Pharmacy Electronically, [facility], Partial fill upon patient request if the prescription is for a schedule II opioid drug., 175.2, cm, 12/13/24 15:17:00 EDT, Height, 100.1, kg, 12/13/24 15:17:00 EDT, Dry Weight Start Date: 12/13/24 Stop Date: 12/22/24 Status: Ordered Quantity: 28.0 Unit: tablet Repeat number: 1 pantoprazole 20 mg oral delayed release tablet By Mouth, Daily, 0 Refills, Maintenance, 12/11/24 9:15:00 AM EDT, CR Tablet Start Date: 12/11/24 Status: Ordered Repeat number: 1 Paxil 40 mg oral tablet 1 tablet = 40 mg, By Mouth, Daily at bedtime, # 30 tablet, 0 Refills, Maintenance, 06/27/13 2:58:48 PM EST, Tablet Start Date: 06/27/13 Status: Ordered Quantity: 30.0 Unit: tablet Repeat number: 1 Probiotic Formula By Mouth, Daily, 0 Refills, Maintenance, 05/25/21 11:22:00 AM EDT, Partial fill upon patient requestif the prescription is for a schedule II opioid drug. Start Date: 05/25/21 Status: Ordered Repeat number: 1 Senna = 17.2 mg, By Mouth, 2 times a day, 0 Refills, Maintenance, 06/27/13 2:55:58 PM EST Start Date: 06/27/13 Status: Ordered Repeat number: 1 simvastatin 20 mg oral tablet 1 tablet = 20 mg, By Mouth, Daily at bedtime, # 30 tablet, 0 Refills, Maintenance, 06/27/13 2:57:48 PM EST, Tablet Start Date: 06/27/13 Status: Ordered Quantity: 30.0 Unit: tablet Repeat number: 1 Vitamin B12 0 Refills, Maintenance, 12/13/24 3:50:00 PM EDT, Partial fill upon patient request if the prescription is for a schedule II opioid drug. Start Date: 12/13/24 Status: Ordered Repeat number: 1 Vitamin C 500 mg oral tablet 1 tablet = 500 mg, By Mouth, Daily, # 30 tablet, 0 Refills, Maintenance, 07/09/20 11:11:00 AM EST, Tablet, Partial fill upon patient request if the prescription is for a schedule II opioid drug. Start Date: 07/09/20 Status: Ordered Quantity: 30.0 Unit: tablet Repeat number: 1 Problem List Condition Confirmation Course Effective Dates Status H ealth Status Informant Knee pain Confirmed Active Hip pain Confirmed Active Arthropathy of lumbar facet joint Confirmed Active Anxiety, chronic Confirmed Active Chronic cholecystitis with calculus Confirmed Active Depression, prolonged Confirmed Active Drug-induced constipation Confirmed Active Family history of alcoholism: Father Confirmed Active Gastroesophageal reflux disease Confirmed Active History of sleep apnea Confirmed Active Status post left knee replacement Confirmed Active History of total knee replacement, left Confirmed Active Hyperlipidemia NOS Confirmed Active Mechanical low back pain Confirmed Active Spondylosis of lumbar joint Confirmed Active Neck pain Confirmed Active Cannabis, daily use Confirmed Active Cocaine abuse in remission Confirmed Active Obese class I Confirmed Active Osteoarthritis of right hip Confirmed Active Osteoarthritis of left knee Confirmed Active Osteoarthritis of right knee Confirmed Active Panic disorder Confirmed Active Shoulder pain Confirmed Active Postop check Confirmed Active Umbilical hernia Confirmed Active Procedures Procedure Date Related Diagnosis Body Site Status Revision or removal of impla nted spinal neurostimulator pulse generator or automobile mechanic supervisor Completed Vital Signs Most recent to oldest [Reference Range]: 1 2 3 Height 175.2 cm (12/13/24 3:17 PM) 175.2 cm (12/10/24 8:25 AM) Weight 100.1 kg (12/13/24 3:17 PM) 92 kg (12/10/24 8:25 AM) Oxygen Saturation [94-100 %] 99 % (12/13/24 7:30 PM) 98 % (12/13/24 7:00 PM) 100 % (12/13/24 6:45 PM) Pulse Rate [55-90 bpm] 64 bpm (12/13/24 3:17 PM) Body Mass Index [18.5-24.99 kg/m2] 32.61 kg/m2 *>HHI* (12/13/24 3:17 PM) 29.97 kg/m2 *H* (12/10/24 8:25 AM) Blood Pressure [90-138/55-84 mm Hg] 124/61mm Hg (12/13/24 7:00 PM) 110/64mm Hg (12/13/24 6:30 PM) 128/65mm Hg (12/13/24 6:15 PM) Respiratory Rate [16-30 br/min] 12 br/min *L* (12/13/24 7:00 PM) 12 br/min *L* (12/13/24 6:45 PM) 21 br/min (12/13/24 6:30 PM) Temperature [96.8-100.4 DegF] 98.3 DegF (12/13/24 5:15 PM) 97.7 DegF (12/13/24 3:17 PM) Liters per Minute 6 L/min (12/13/24 5:15 PM) Mode of Delivery (Oxygen) Room air (12/13/24 7:30 PM) Room air (12/13/24 5:45 PM) Simple face mask (12/13/24 5:15 PM) Temperature Route Temporal (12/13/24 5:15 PM) Temporal (12/13/24 3:17 PM) Dry Weight 100.1 kg (12/13/24 3:17 PM) 92 kg (12/10/24 8:25 AM) Weight Obtained Via Standing scale (12/13/24 3:17 PM) Dry Weight Obtained Via Standing scale (12/13/24 3:17 PM) Social History Social History Type Response Smoking Status Never smoker entered on: 11/19/14 Sex Sex Representation Male (finding) History and physical note * Ernestina Ford NP: PERFORM Event Display: History and Physical Hospital Authored Date: Patient: ??KAM GELLER ? Age:??74 Years?Sex:??Male?:??1950?? Provider Clinical Summary Surgical H&P ?? I am seeing the patient today under the supervision of Dr. Ruiz who was available but who did not see the patient. ?? Surgery: spinal cord stimulator explant Surgery date: 12/13/2024 Surgeon: Dr Iniguez ?? HPI: 74-year-old man presents for pre-op clearance for above surgery. 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 No longer effective for him. Would like it explanted which will arrange. Procedure described in detail by Dr Iniguez and he wishes to proceed. This patient has pain which interferes with activities of daily living. Pathology by MRI. This patient has failed 6 months of conservative treatment including narcotic and non-narcotic pain medications, activity modification, a full course of physical therapy including exercise- based care and modalities. The patient is a nonsmoker and has documented cessation of smoking for at least 6 weeks prior to booking surgery. ?? ROS: Denies fevers/chills, skin lesions, cardiac/respiratory symptoms, GI/ disturbances ?? PMH: - see EMR * no history of blood clots ?? Medications: baclofen 10 mg tablet TAKE 1 TABLET BY MOUTH 3 TIMES A DAY ?? docusate sodium ?? ferrous sulfate ?? Fish OiL 1,000 mg (120 mg-180 mg) capsule Take by oral route. ? ketoconazole 2 % topical cream APPLY ONCE TO TWICE DAILY TO RASH IN THE GROIN NEEDED. ?? levothyroxine ?? magnesium ?? metoclopramide 10 mg tablet TAKE 1 TABLET BY MOUTH FOUR TIMES A DAY NEEDED FOR ABDOMINAL CRAMPS ?? pantoprazole 20 mg tablet,delayed release Take 2 tablet(s) every day by oral route. ?? PaxiL 40 mg tablet Take 1 tablet(s) every day by oral route. ?? pimecrolimus 1 % topical cream APPLY TWICE DAILY TO AFFECTED AREAS IN GROIN NEEDED. ?? PreserVision AREDS 2 Plus Multivit 200 mcg-15 mcg-5 mg-1 mg capsule Take by oral route. ?? senna ?? simvastatin 10 mg tablet Take 1 tablet(s) every other day by oral route. ?? Vitamin C ?? Allergies: NKA ?? PSH: Hernia repair - umbilical with mesh Cholecystectomy Replacement of bilateral knee joints Replacement of bilateral hip joints * no history of reaction to anesthesia ?? Family Hx: N/A ?? Social Hx: - ETOH: occasional - Smoking: never smoker - Substance abuse: marijuana 3-4x per week ?? Exam: General: Well appearing. No acute distress. Psychiatric: Answers questions appropriately. Heart: Regular rate and rhythm. No murmurs, rubs, or gallops. Lungs: Respirations non-labored. Clear to auscultation throughout. No crackles, rales, or wheezes. Abdomen: non-distended, non-tender to palpation. +BS x4. Neurologic: - Motor function: grossly intact - Sensation: grossly intact to light moving touch Skin: intact without lacerations, rashes, or breakdown Extremities: bilateral lower extremities equal in movement and strength 5/5. uses cane. ?? Vital signs: BMI:?30 12/06/2024 01:40 pm Ht:?5 ft 9 in 12/06/2024 01:40 pm BP:?154/74 12/06/2024 02:24 pm Pain Scale:?7 12/06/2024 01:41 pm Pulse:?63 bpm 12/06/2024 02:24 pm Wt:?203 lbs 12/06/2024 01:40 pm O2Sat:?96% 12/06/2024 02:24 pm ?? Imaging: not indicated today. Previous imaging completed and reviewed by surgeon ?? Impression & Plan: - Findings, situation, and recommendations discussed with patient - Procedure recommended to patient is spinal cord stimulator explant - Risks of surgical procedure reviewed w/ patient - Questions asked and answered and patient wishes to proceed with surgical intervention - Surgical H&P performed with procedure planned to be within the next 30 days - Patient will be NPO after midnight prior to surgery. - Patient given pre surgical wash - Patient educated to hold the following medications: stop NSAIDs and vitamins 5 days prior to surgery. Stop marijuana 3 days before surgery - Take levothyroxine, Paxil, pantoprazole in the morning with small sip of water. If in pain, can take baclofen as well. - Discharge home same day ?? Follow up appt at [facility]: 12-28-2024 2:[address] Iniguez ?? Speech dictation software utilized. Please call for errors. Problem List/Past Medical History Ongoing Anxiety, chronic Arthropathy of lumbar facet joint Cannabis, daily use Chronic cholecystitis with calculus Cocaine abuse in remission Depression, prolonged Drug-induced constipation Family history of alcoholism: Father Gastroesophageal reflux disease Hip pain History of sleep apnea History of total knee replacement, left Hyperlipidemia NOS Knee pain Mechanical low back pain Neck pain Obese class I Osteoarthritis of left knee Osteoarthritis of right hip Osteoarthritis of right knee Panic disorder Post-traumatic stress disorder Postop check Shoulder pain Spondylosis of lumbar joint Status post left knee replacement Umbilical hernia Procedure/Surgical History ???Esophagogastroduodenoscopy and biopsy (04/14/2020)???Total left knee replacement, total left andright hip replacement, carpal tunnel release both hands, gallbladder removal, spinal stimulator placement, pain pump placement Medications Inpatient No active inpatient medications Home acetaminophen 325 mg oral tablet, 650 mg, By Mouth, Every 6 hours Calcium 600 +D, 1 tablet, By Mouth, 2 times a day Colace Capsule, 100 mg, By Mouth, Daily Ecotrin 325 mg oral delayed release tablet, 325 mg= 1 tablet, By Mouth, 2 times a day Levothyroxine, 250 mcg, By Mouth, Daily in AM meloxicam 15 mg oral tablet, 15 mg= 1 tablet, By Mouth, Daily MiraLax Powder, 17 Gm= 1 pack/packet, By Mouth, Daily, PRN omeprazole 40 mg oral enteric coated capsule, 40 mg= 1 capsule, By Mouth, 2 times a day Paxil 40 mg oral tablet, 40 mg= 1 tablet, By Mouth, Daily at bedtime Probiotic Formula, By Mouth, Daily Senna, 17.2 mg, By Mouth, 2 times a day simvastatin 20 mg oral tablet, 20 mg= 1 tablet, By Mouth, Daily at bedtime Vitamin C 500 mg oral tablet, 500 mg= 1 tablet, By Mouth, Daily Allergies NKA Social History Alcohol Use: occasionally. . Substance Abuse Use: Current. Type: Marijuana. Other: THC- smoking and CBD oil.. Tobacco Never smoker Family History Clotting and bleeding disorders: Negative: Mother, Father, Sister, Brother, Mat. Grandfather, Mat. Grandmother, Other, Pat. Grandfather and Pat. Grandmother. Immunizations Vaccine Date Status [id number] 12y+ bivalent booster vax 05/24/2022 Recorded SARS-CoV-2 (COVID-19) mRNA-1273 vaccine 06/27/2021 Recorded SARS-CoV-2 (COVID-19) mRNA-1273 vaccine 11/13/2020 Recorded SARS-CoV-2 (COVID-19) mRNA-1273 vaccine 10/16/2020 Recorded Note * Tala John RN: PERFORM Event Display: Discharge/Transfer Note Hospital Authored Date: [id number] Nursing Discharge Note Entered On: 12/13/2024 20:10 EDT Performed On: 12/13/2024 20:10 EDT by Tala John RN Nursing Discharge Note 2 Discharge Time : 12/13/2024 19:53 EDT Discharge Level of Care at Discharge : Home/Half-Way/Foster Care Patient Left Unit Via : Wheelchair Patient Accompanied Off Unit with : Responsible adult DC Instructions Provided & Signed by Pt : Yes Patient Understands D/C Instructions : Yes Patient Instructions Discharge Signed : Yes Did Pt have Specialty Bed or Wound Vac : No Tala John RN - 12/13/2024 20:10 EDT * Mary Ochoa RN: PERFORM Event Display: Patient Education/Instruction Authored Date: [id number] Surgery [place] [address] Name: KAM GELLER : 1950?? Visit: 12/13/2024 14:32?? Current Date: 12/13/2024 18:29 ?? Account: [id number]?? Surgery Discharge Instructions We would like to thank you for allowing us to assist you with your healthcare needs. The following includes patient education materials and information regarding your injury/illness. Our entire staffstrives to provide an excellent experience for our patients and their families. PLEASE ENSURE YOU FOLLOW-UP PER THE INSTRUCTIONS BELOW! ?? YOUR OPINION IS IMPORTANT TO US! Please complete the survey you may receive by mail or email. Your feedback will be used to make improvements to the healthcare experiences of our patients and their families. Surveys are administered by [employer] ?? If further treatment with your primary care physician or another doctor is recommended, it is important for you to keep the appointment. Call your primary care physician or return to the Emergency Department immediately if your condition worsens, fails to improve, or new symptoms develop. If you need to find a doctor, you can call [facility] Link for a referral at [phone] or toll free at [phone]) or log in to [email or web address].. ?? [facility], in keeping with [facility] guidance, no longer requires face masks for staff, patientsor visitors in most situations. Similiar to time spent indoors at other locations, there is the chance that you were exposed to repiratory viruses during your time with us (such as flu or COVID-19). If you develop symptoms concerning for a viral respiratory infection, please seek testing (and treatment if indicated) from your medical provider or home test kit. ?? You can view and manage your care through the patient portal or by using a health care deborah of your choosing. [employer] is a website that allows you to securely view your medical information including your hospital discharge summary, office visit summaries, medications and follow-up visits. You can also request appointments, renew medications, and request access to your medical information using a health care deborah of your choosing, or just ask a question. You are entitled to know the individuals who participated in your treatment. This information is available within your medical record and will be provided upon your request. You can enroll at [email or web address] or register d uring your next office visit. You have been discharged from [facility], Patient Care Unit: PANU??. If you have any questions regarding these instructions after you leave, please call us and we will be happy to assist you. [facility] Your Care Team Attending Physician Claude Iniguez MD?? Discharging Providers Claude Iniguez MD Reason for Admission POSTLAMINECTOMY SYNDROMEOF LUMBAR REGION 23 HR Your Diagnosis Post laminectomy syndrome Primary Care Provider Nuno Mcclendon NP? Advance Directive Health Care Proxy on File Yes - Health Care Proxy What to do next Instructions From Your Doctor ?? Orders?? , ??when ambulatingvoiding>300cctol po, ??12/13/24 17:11:00 EDT?? You Need to Schedule the Following Appointments Follow Up with??Hira CHOUDHURY, Claude Kruse When:??Within Within two weeks Where: [address] [facility] [place] [address]- Discharge Medications KAM GELLER :1950 Visit Date:12/13/2024 Medications: Please continue your medications until treatment is completed or stopped by your provider. You may resume your daily prescription medications. Discuss any questions related to medications with your provider. What How Much When Instructions Next Dose Unchanged Acetaminophen (acetaminophen 325 mg oral tablet) 650 Milligram Oral Every 6 hours 11 pm Unchanged Ascorbic Acid (Vitamin C 500 mg oral tablet) 1 tab(s) Oral Daily Unchanged Aspirin (Ecotrin 325 mg oral delayed release tablet) 1 tab(s) Oral Twice a day Duration: 30 Days Unchanged bifidobacterium-lactobacillus (Probiotic Formula) Oral Daily Unchanged Calcium And Vitamin D Combination (Calcium 600 +D) 1 tab(s) Oral Twice a day Unchanged Cyanocobalamin (Vitamin B12) Unchanged Docusate (Colace Capsule) 100 Milligram Oral Daily Unchanged Levothyroxine 250 Microgram Oral Daily in the morning Unchanged Magnesium Oxide (Mag-Ox Tablet) 400 Milligram Oral Daily Unchanged Meloxicam (meloxicam 15 mg oral tablet) 1 tab(s) Oral Daily Unchanged Omeprazole (omeprazole 40 mg oral enteric coated capsule) 1 capsule Oral Twice a day Take 30-60 minutes prior to eating or drinking ?? Unchanged Oxycodone (oxyCODONE 5 mg oral tablet) 5 Milligram Oral Every 6 hours as needed for Pain , Moderate Pickup at [facility] 3 12am Unchanged Pantoprazole (pantoprazole 20 mg oral delayed release tablet) Oral Daily Unchanged Paroxetine (Paxil 40 mg oral tablet) 1 tab(s) Oral Daily at Bedtime Unchanged Polyethylene Glycol 3350 (MiraLax Powder) 17 gram Oral Daily as needed for Constipation Unchanged Senna 17.2 Milligram Oral Twice a day Unchanged Simvastatin (simvastatin 20 mg oral tablet) 1 tab(s) Oral Daily at Bedtime [facility]: [address], [place] [id number] [phone] Allergies (NKA means No Known Allergies) NKA Education Materials Below is the list of Educational Leaflet Providered with your Discharge Instructions. [employer] Patient Education - Surgery Medical Daystay Surgical Overnight Discharge Instructions?? Valuables and Belongings I fully understand and agree that [facility] accepts no responsibility for all my personal property including clothing, toilet articles, radios, jewelry, dentures, hearing aids, rings, money, or any other property that is in my possession or is brought to me after admission. I understand certain valuables may be placed in a hospital safe for a short period of time. I understand that the hospital is not liable for loss or damage due to accident, fire, or other natural occurrence while said property is in the safe. I accept full responsibility for any personal property that I keep with me, and will not hold the hospital responsible in case of loss or disappearance. I acknowledge that i have been encouraged to send valuables and belongings home. ?? Review of Valuable and Belonging List: With patient Disposition of Belongings: Valuables Locked Possessions released to: PACU Date for Pt to Sign Valuables/Belongings: 12/13/24 15:35:00 ?? Valuables & Belongings ?? Clothes Electronic devices Jewelry Monetary Items Personal devices Miscellaneous Medications (Valuables) Valuables at Bedside Jacket, Pants, Shirt, Shoes, Undergarments Cell phone ? Cane ? Valuables Sent Home ? Valuables Sent to Security ? Valuables Sent to Locker ? Other Discharge Information ? Pulmonary Rehab Status?? Pulmonary Rehab Discharge Status?? Respiratory Rate:??14 br/min??Low ? Common Emergency Awareness Tips IS IT A STROKE? Act FAST and Check for these signs: FACE Does the face look uneven? ARM Does one arm drift down? SPEECH Does their speech sound strange? TIME Call at any sign of stroke ?? Heart Attack Signs Chest discomfort: Most heart attacks involve discomfort in the center of the chest and lasts more than a few minutes, or goes away and comes back. It can feel like uncomfortable pressure, squeezing, fullness or pain. Discomfort in upper body: Symptoms can include pain or discomfort in one or both arms, back, neck, jaw or stomach. Shortness of breath: With or without discomfort. Other signs: Breaking out in a cold sweat, nausea, or lightheaded. Remember, MINUTES DO MATTER. If you experience any of these heart attack warning signs, call to get immediate medical attention! ?? Smoking can increase your chances of developing chronic health problems and can cause harmful effects to other family members in your house. If you smoke, you are strongly encouraged to quit. Please call [facility] Link at [phone] or [phone] [employer] ([phone]) or log in to [email or web address] for referrals to smoking cessation programs. ?? The National Suicide Prevention Hotline is available 14/02 if you or someone you know needs to find a reason to keep living. By calling 2-841-643-GoodyTag (0063) you'll be connected to a skilled, trained counselor at a crisis center in your area. SURGERY DISCHARGE INSTRUCTIONS SIGNATURE PAGE KAM GELLER Location:[facility] Registration Date and Time:12/13/2024 14:32 EDT Primary Care Physician: Nuno Mcclendon NP, Attending Physician: Claude Iniguez MD, I KAM GELLER, have received the above patient education materials/instructions and have verbalized understanding. If ambulance or transport services are being used I further acknowledge being given a choice of service. ?? If you need to contact me, please call me at this number: . Patient/Cream Beater Name: Patient/Cream Beater Signature: Relationship to Patient: Witness Name/Signature: Date: * Mary Ochoa RN: PERFORM Event Display: Patient Education Leaflets Authored Date: [id number] Surgery Medical Daystay Surgical Overnight Discharge Instructions ?? 295 Medical Daystay/Surgical Overnight Discharge Instructions ? Since your coordination and judgment may be altered by medication and/or anesthesia, a responsible adult must drive you home from the hospital. ? If you have received medication for pain or sedation while under our care, you should not drive, operate machinery, drink alcohol, or sign any legal documents for 24 hours.?? You should have someone with you at home tonight. ? Remain at home the day of discharge.?? You may be up and about unless otherwise instructed by your physician. ? You may resume your daily prescription medication schedule.?? Any depressant medication should be avoided for 24 hours unless otherwise instructed by your surgeon or anesthesiologist. ? Call your physician for a follow-up appointment.? If you experience unusual or severe pain not relied by your pain medication, excessive bleedingor drainage, persistent nausea and vomiting, excessive swelling or redness, foul odor from incisionsite or fever over 100.6F, you need to call your physician. ? A follow-up phone call by a nurse will be made the day after your procedure.?? If you have stayed with us over night, you will not be receiving a follow-up phone call. ? Nausea and vomiting are a common side effect of prescription pain medication.?? We recommend that pills are not taken on an empty stomach.?? While taking any prescription pain medication you should not drive or drink alcohol. ? Patient Care team information Care Team Personnel Name: Marilia Carey RN Position: [facility] SN RN Member Role: Primary Care Nurse Name: Nilda Julian RN Position: [facility] AMB Nurse Member Role: Primary Care Nurse Name: Veronica Mejía RN Position: [facility] RN Member Role: Primary Care Nurse Name: Nuno Mcclendon NP Position: [facility] Outreach Member Role: PCP Address: [address] [place] [address]- Telecom: Name: Britt Zamora RN Position: [facility] SN RN Member Role: Primary Care Nurse Name: Lena Harris RN Position: [facility] RN Member Role: Primary Care Nurse Name: Trisha Lamar RN Position: [facility] RN Member Role: Primary Care Nurse Name: Isidra Lemons RN Position: [facility] RN Member Role: Primary Care Nurse Name: Shelly Silver RN Position: [facility] RN Member Role: Primary Care Nurse Care Team Related Persons Name: MEI GELLER Insurance Providers Guarantor name: KAM GELLER Health Plan Information #: 2 Payer: MEDICARE PART B OUTPT Member Number: [id number] Policy Number: NA Group Number: NA Health Plan Information #: 3 Payer: MEDICARE PART B OUTPT Member Number: [id number] Policy Number: NA Group Number: NA Health Plan Information #: 1 Payer: [facility] [facility] Member Number: [id number] Policy Number: NA Group Number: NA
== END 2024-12-18 06:39 | disposition home or self-care (01) ==
LOC: CF 06:38
PROVIDERS: Visit Provider Anesthesiology
DX: Z13.89 Encounter for screening for other disorder (principal)

== ENCOUNTER 2025-01-30 15:22 | Outpatient (AMB) | payer OTHER, SELFPAY ==
--- OUTSIDE RECORDS SUMMARY | 2024-06-26 10:30 | XMS_ITS | Encounter Summary ---
Author Name [facility] [place] [facility] [place] Address [address] [place] [address] Care Team Providers Care Athletic Director Name Role Phone WAYNE WHEATLEY Primary Care Provider Unavailabl e Insurance Providers: All historical and current Section Date Range: From patient's date of to the date document was created. This section includes the names of all active insurance providers for the patient. Insurance Provider Type of Coverage Plan Name Start of Policy Coverage End of Policy Coverage Group Number Member ID Insurance Provider's Telephone Number Policy Waldrop's Name Patient's Relationship to Policy Waldrop [facility]) MEDICARE ADVANTAGE [facility] ([facility]) Aug 25, 2001 [facility] ([facility]) [id number] TIERNEYADRIANA RUSSO JOHN PATIENT MEDICARE ([facility]) MEDICARE (M) PART A Oct 23, 2016 PART A [id number] QUE GELLER PATIENT MEDICARE ([facility]) MEDICARE () PART B Oct 23, 2016 PART B [id number] QUE GELLER PATIENT MEDICARE ([facility]) MEDICARE (M) PART B Jul 25, 2011 PART B [id number] QUE GELLER PATIENT MEDICARE ([facility]) MEDICARE (M) PART B Jul 25, 2011 PART B [id number] QUE GELLER PATIENT MEDICARE (WNR) MEDICARE (M) PART B Jul 25, 2011 PART B [id number] [phone] QUE GELLER PATIENT MEDICARE (WNR) MEDICARE (M) PART B Jul 25, 2011 PART B [id number] [id number] [id number] QUE GELLER PATIENT MEDICARE (WNR) MEDICARE (M) PART A Apr 24, 2004 PART A [id number] QUE GELLER PATIENT MEDICARE (WNR) MEDICARE (M) PART A Apr 24, 2004 PART A [id number] QUE GELLER PATIENT MEDICARE (WNR) MEDICARE (M) PART A Apr 24, 2004 PART A [id number] QUE GELLER PATIENT MEDICARE (WNR) MEDICARE (M) PART A Apr 24, 2004 PART A [id number] [phone] [id number] QUE GELLER PATIENT Selected Encounter This section includes the information on record at [place] for the Encounter. Date/Time Encounter Type Encounter Description Reason Provider Source Jun 26, 2024 02:30 PM COMPRE OPH EXAM EST PT 1/> OPTOMETRY ICD-10-CM 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, bilateral, intermed dry stage LAMAR,MIMI J E Encounter Template Text not used by [place] Assessments - Encounter Diagnoses This section includes the primary and secondary diagnoses documented for the Encounter. Date/Time Primary/Secondary Diagnosis Diagnosis Name Provider Source Jun 26, 2024 03:53 PM PRIMARY Nexdtve age-related mclr degn, bilateral, intermed dry stage LAMAR,MIMI [place] [facility] [place] [facility] Jun 26, 2024 03:53 PM SECONDARY Combined forms of age-related cataract, bilateral MIMI LAMAR [place] [facility] [place] [facility] Jun 26, 2024 03:53 PM SECONDARY Open angle with borderline findings, low risk, bilateral MIMI LAMAR [place] [facility] [place] [facility] Jun 26, 2024 03:53 PM SECONDARY Presbyopia [facility] [place] [facility] Plan of Treatment: Future Appointments (+ 6 months) and Future Tests (+/- 45 days) The Plan of Treatment section includes future care activities for the patient from all [place] treatmentfacilities. This section includes future appointments and future orders which are active, pending or scheduled. Future Appointments This section includes appointments that were scheduled to occur 6 months from the date of the Encounter, up to a maximum of 20 appointments. The data comes from all [facility]. Appointment Date/Time Appointment Type Appointme nt Facility Name Jul 03, 2024 04:00 PM [facility] Sep 04, 2024 04:00 PM [facility] Sep 13, 2024 02:30 PM [facility] [place] [facility] Sep 26, 2024 01:00 PM [facility] [place] [facility] Nov 20, 2024 03:30 PM [facility] Nov 21, 2024 03:30 PM AMBULATORY - MEDICINE [facility] [place] December 03, 2024 03:30 PM AM[facility]ULATORY [place]IC[place] [facility] [place] [facility] December 06, 2024 01:30 PM AMBULATORY - MEDICINE [facility] Active, Pending, and Scheduled Orders This section includes a listing of several types of active, pending, and scheduled orders, including clinic medications orders, diagnostic test orders, procedure orders and consult orders; where the start date of the order is 45 days before the date of the Encounter or 45 days after the date of theEncounter. The data comes from all [facility]. Test Date/Time Test Type Test Details Facility Name Aug 07, 2024 09:01 AM Consult Order [facility] Machine Driller's Heriberto HARRAH Social History: Smoking Status (Most current) and Tobacco Use (All prior to encounter date) This section includes the most current, and the historical, smoking and tobacco- related health factors from the [place] facility where the Encounter took place. Current Smoking Status This section includes the most current smoking, or tobacco-related health factor, from the [place] facility where the Encounter took place. Date/Time Current Smoking Status Comment Catie thompson Mar 22, 2024 12:43 PM VA-TOBACCO NEVER USED [facility] Tobacco Use History This section includes a history of the smoking, or tobacco-related health factors, that were collected on or before the date of the Encounter. The data comes from the [place] facility where the Encounter took place. Date/Time Smoking Status/Tobacco Use Comment Gaby carrillo Mar 26, 2021 02:25 PM VA-TOBACCO NEVER USED [facility] Advance Directives: All historical and current Section Date Range: From patient's date of to the date document was created. This section includes ALL of a patient's completed or amended [place] Advance and Rescinded Directives. The entries below indicate that a directive exists for the patient, but an actual copy is not included with this document. The data comes from all [place] facilities. Date Advance Directives Provider Source Nov 04, 2016 ADVANCE DIRECTIVE RONY URRUTIA [facility] Encounter Notes: All associated encounter notes This section contains the clinical notes associated to the Encounter. Date/Time Encounter Note(s) Provider Source Jun 26, 2024 11:27 AM OPTOMETRY NOTE: LOCAL TITLE: OPTOMETRY NOTE STANDARD TITLE: OPTOMETRY NOTE DATE OF NOTE: JUN 26, 2024@11:27 ENTRY DATE: JUN 26, 2024@11:27:18 AUTHOR: MIMI LAMAR EXP COSIGNER: URGENCY: STATUS: COMPLETED Eye Examination for: KAM GELLER, 73 year old WHITE MALE VENECIA: 9.26.23 Reason for Visit/CC: Patient here for CEE. reports he is having a lot of difficulty with glare from the sun during the day. is still driving primarily daylight only. Current Ocular Meds: AREDS2 PO BID OHx/HPI: 1. Intermediate dry ARMD OU 2. Low risk glc susp OU 3. Combined cataract OU 4. RE,P (-) Pain: (-) NORIEGA: (-) Diplopia: (-) Flashes: (-) Floaters: (-) Amaurosis Fugax/Tia's: (-) Eye Injury: (-) Eye Surgery: (-) TBI FOHx: (-) Glaucoma (+) ARMD: mother and brother (-) Blindness MHx: Code Description Z77.29 Exposure to potentially hazardous substance ([facility] [id number]) E66.9 Obesity ([facility] [id number]) D64.9 Anemia ([facility] [id number]) L84. Callus ([facility] [id number]) S27.0XXD Traumatic pneumothorax ([facility] [id number]) R60.9 Edema ([facility] [id number]) K31.84 Gastroparesis ([facility] 196725395) Z98.890 H/O: surgery ([facility] [id number]) G89.4 Chronic pain ([facility] 28034076) R69. Lumbar DXA scan result normal ([facility] [id number]) R69. ECG: normal sinus rhythm ([facility] [id number]) 719.45 Hip Pain (ICD-9-CM 719.45) V76.51 Screening for Malignant Neoplasms of colon (ICD-9-CM V76.51) M54.50 Back pain ([facility] [id number]) E03.9 Hypothyroidism ([facility] [id number]) E78.5 Hyperlipidemia ([facility] 94622972) D56.1 beta thalassemia ([facility] 14905373) V43.65 Knee Joint replacement Status (Prosthetic or Artificial Device) (ICD-9-CM V43.65) F33.9 Depression ([facility] [id number]) R12. Heartburn ([facility] [id number]) SYSTEMIC MEDICATIONS/OCULAR MEDICATIONS: Active Outpatient Medications (including Supplies): Active Outpatient Medications Status 1) CHOLECALCIF 25MCG (D3-1,000UNIT) TAB TAKE ONE TABLET ACTIVE BY MOUTH ONCE DAILY FOR VITAMIN SUPPLEMENTATION 2) CHOLESTYRAMINE 4GM/9GM ORAL PWD PKT TAKE 1 PACKET BY ACTIVE MOUTH ONCE DAILY 3) CYANOCOBALAMIN 1000MCG TAB TAKE ONE TABLET BY MOUTH ACTIVE ONCE DAILY FOR VITAMIN SUPPLEMENTATION 4) DICYCLOMINE HCL 20MG TAB TAKE ONE TABLET BY MOUTH ACTIVE TWICE DAILY NEEDED (FOR IRRITABLE BOWEL SYNDROME) 5) DOCUSATE NA 50MG/SENNOSIDES 8.6MG TAB TAKE 1 TABLET ACTIVE BY MOUTH TWICE DAILY FOR CONSTIPATION 6) FERROUS SULFATE 325MG TAB TAKE ONE TABLET BY MOUTH ACTIVE ONCE DAILY TO SUPPLEMENT IRON 7) LEVOTHYROXINE NA (SYNTHROID) 125MCG TAB TAKE ONE ACTIVE TABLET BY MOUTH EVERY MORNING 30 MINUTES BEFORE BREAKFAST FOR THYROID TAKE ON AN EMPTY STOMACH WITH A FULL GLASS OF WATER 8) LIDOCAINE 5% OINT APPLY SMALL AMOUNT TOPICALLY ONCE ACTIVE (S) DAILY NEEDED FOR ITCHING 9) MAGNESIUM OXIDE 420MG TAB TAKE ONE TABLET BY MOUTH ACTIVE ONCE DAILY 10) MULTIVIT/OPHTH AREDS2/LUTE/ZEAX CAP/TAB TAKE 1 ACTIVE CAPSULE BY MOUTH TWICE DAILY IN THE MORNING AND EVENING, WITH FOOD 11) PANTOPRAZOLE NA 40MG EC TAB TAKE ONE TABLET BY MOUTH ACTIVE EVERY MORNING 30 MINUTES BEFORE BREAKFAST FOR EXCESSIVE PRODUCTION OF STOMACH ACID 12) PAROXETINE HCL 40MG TAB TAKE ONE TABLET BY MOUTH ACTIVE DAILY 13) PROCHLORPERAZINE MALEATE 10MG TAB TAKE ONE TABLET BY ACTIVE MOUTH TWICE DAILY NEEDED FOR NAUSEA AND VOMITING 14) SIMVASTATIN 40MG TAB TAKE ONE-HALF TABLET BY MOUTH AT ACTIVE BEDTIME FOR CHOLESTEROL 15) SODIUM FLUORIDE 1.1% TOOTHPASTE BRUSH SMALL AMOUNT TO ACTIVE TEETH TWICE DAILY FOR TOOTH DECAY PREVENTION 16) SUCRALFATE 1GM TAB TAKE ONE TABLET BY MOUTH TWICE ACTIVE DAILY ON AN EMPTY STOMACH. TAKE UPON AWAKENING AND BEFORE BED Active Non-VA Medications Status 1) Non-VA LORAZEPAM 0.5MG TAB 0.5MG BY MOUTH ONCE DAILY ACTIVE NEEDED 2) Non-VA MARIJUANA MISCELLANEOUS DIRECTED ACTIVE 3) Non-VA PROBIOTIC (CULTURELLE DIGESTIVE DAILY) CAP/TAB ACTIVE BY MOUTH ONCE DAILY 19 Total Medications ALLERGIES: ERYTHROMYCIN, NEURONTIN, FLOMAX VITALS (most recent, as listed in the electronic record): B/P: 146/81 (03/22/2024 12:40) Pulse: 83 (03/22/2024 12:40) Temperature: 98.2 F [36.8 C] (03/22/2024 12:40) Weight: 215.4 lb [97.70 kg] (03/22/2024 12:40) Height: 69 in [175.3 cm] (10/05/2023 15:06) BMI: BMI: 31.9 PERTINENT LABS: HEMOGLOBIN A1C TREND Collection DT Spec HGBA1c 11/23/2023 13:22 BLOOD 5.5 02/05/2022 14:12 BLOOD 5.2 09/16/2020 14:33 BLOOD 5.3 05/09/2019 14:10 BLOOD 5.6 03/20/2018 14:49 BLOOD 5.5 (-) Smoker (never) Current Rx with last BCVA: OD: +2.50-2.07b621 20/20-1 OS: +2.75-2.35i245 20/20-1 Add: +2.50 20/20 DVA ( )sc ( x )cc - [x]phoropter []specs []CL OD: 20/60-1 OS: 20/25+2 Entrance Testing: Pupil: PERRL (-)APD EOM: SAFE OU, (-)Pain/Diplopia CVF: FTFC OU Subjective Refraction: OD: +1.50-2.81j997 20/50+2 OS: +3.25-2.45p524 20/20 Add: +2.75 SLE: Lids/Lashes: clear OU Conjunctiva: white and quiet bulbar conj OU quiet palpebral conj OU Corneas: clear OU Iris: flat and clear OU, (-)TID OU AC: D & Q OU Angles: 4x4 OU TAP @ 2:50pm OD 07 mmHg OS 08 mmHg [x]Dorantes [][facility] []GAT Last IOP: OD: 13 OS: 14 Pachymetry: OD: 479 OS: 484 Dilating Drops: 1GTT 1 % Tropicamide OU & 1GTT 2.5% Phenylephrine OU (Pt. ed. on side effects, dilation warning given and verbal consent obtained) Patient advised not to drive if they feel they have any symptoms which could affect their ability to drive safely. Patient advised not to engage in any activities which could put themselves or others at risk if they feel they have any symptoms which could affect their ability to perform those activities safely. Dilated Fundus Exam: Vit: PVD OD, clear OS Lens: 1+ NSC OU, 2+ ACC OU (-)PXF OU C/D (Size and Rim Description) OD 0.65 pink and healthy OS 0.70 pink and healthy (-)Drance heme OU PPole OD clear OS clear Macula OD diffuse intermediate and soft drusen with pigment clump parafoveal OS diffuse intermediate and soft drusen (-)SRF/SRH OU A/V: normal caliber OU Periphery: flat and intact (-)holes, tears, detachments 360 OU Assessment/Plan: 1. 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 -Pt ed re today's findings, the natural history of macular degeneration including both wet and dry varieties and the prognosis of this condition -Pt ed re the importance of UV protection -Stressed importance of cessation of smoking and impact on ARMD -Pt ed on use of home amsler grid including proper testing at home -Pt ed on use of ocular nutraceutical therapy, diet and healthy lifestyle choices -Pt ed to report any vision changes SERA. -Continue AREDS2 PO BID -[place] repeated back the plan and education. -Monitor 6 months 2. Low risk open-angle glaucoma suspect OU. Moderate cupping with thinner than average CCT but stable RNFL OCT. No evidence of pigment dispersion or pseudoexfoliation OU. No known family history of glaucoma. No change in ONH appearance. Low index of suspicion at present. -Pt ed re today's findings -Pt ed re glaucoma as well as the natural history of this diagnosis including prognosis. -Stress importance of continued follow-up appointments - repeated back the plan and education. -RTC 1 year for CEE 3. Combined Cataracts OU - not visually significant at present -Pt ed re today's findings and the importance of UV protection -Pt ed cataracts may cause reduction of BCVA and symptoms of glare -RTC sooner if vision declines or interferes with ADLs - repeated back the plan and education. -Monitor 4. Refractive Error and Presbyopia OU. Some increased functional difficulty with glare and will proceed with incorporating tint for blue al benefits. Additionally educated on importance of good lighting for visual tasks and may consider LV in future if functional goals arise. -Rx updated and ordered per pt request SVx2 -Monitor RTC 6 mos or earlier PRN Glasses adjusted/repaired in office: () Yes (x) No If yes, how many pairs: Education: Glaucoma: Patient was educated regarding glaucoma/glaucoma suspect as well as the natural history of this diagnosis including prognosis. Stress importance of compliance and persistency with glaucoma medication when prescribed, timely follow up as well as the role of ancillary testing. Exclusion criteria for ancillary testing include significantly reduced acuity, mental status changes affecting the patient's ability to attend to the test or other physical limitations that would prohibit the patient's ability to participate in testing. Macular Degeneration: Patient was educated regarding macular degeneration including both wet and dry varieties as well as the natural history and prognosis of this condition. Education included the role of amsler grid testing , ocular nutraceutical therapy as well as diet and healthy lifestyle choices when applicable. Exclusion criteria includes extremely reduced acuity or cognitive decline for amsler grid testing and other coexisting systemic contraindication for supplements, diet and exercise. Medication Reconciliation: Outpatient: Has the patient been taking medications as documented in the EMLR? YES: The patient has been taking medications as documented in the EMLR. Essential Medication List for Review used to complete this medication reconciliation. INCLUDED IN THIS LIST: Alphabetical list of active outpatient prescriptions dispensed from this [facility] (local) and dispensed from another [place] or [facility] facility (remote) as well as inpatient orders (local, pending and active), local clinic medications, locally documented non-VA medications, and local prescriptions that have or been discontinued in the past 90 days. - All changes in medications, including all non-VA/Herbal/OTC medications were entered into CPRS. - If there were any medications the patient should no longer take, they were discontinued. - The patient/caregiver was instructed to update this list, discard old lists, and take this list to the next appointment, whether with a VA or non-VA provider. Medication List: JLV Link Data on this list may not be complete. Please check JLV. Allergies/ADRs (Tool #5) FACILITY ALLERGY/ADR -------- [facility] ERYTHROMYCIN [facility] FLOMAX [facility] NEURONTIN [facility] ERYTHROMYCIN Med. Reconciliation (Tool #1) INCLUDED IN THIS LIST: Alphabetical list of active outpatient prescriptions dispensed from this [facility] (local) and dispensed from another [place] or [facility] facility (remote) as well as inpatient orders (local pending and active), local clinic medications, locally documented non-VA medications, and local prescriptions that have or been discontinued in the past 90 days. Non-VA Meds Last Documented On: Mar 11, 2022 NOTE The display of VA prescriptions dispensed from another [place] or [facility] facility (remote) is limited to active outpatient prescription entries matched to National Drug File at the originating site and may not include some items such as investigational drugs, compounds, etc. NOT INCLUDED IN THIS LIST: Medications self-entered by the patient into personal health records (i.e. [facility]) are NOT included in this list. Non-VA medications documented outside this [place], remote inpatient orders (regardless of status) and remote clinic medications are NOT included in this list. The patient and provider must always discuss medications the patient is taking, regardless of where the medication was dispensed or obtained. OUTPT AMOXICILLIN 500MG CAP (Status = ) TAKE FOUR CAPSULES BY MOUTH ONE TIME ONE HOUR PRIOR TO DENTAL APPOINTMENTS Rx# [id number] Last Released: 07/14/23 Qty/Days Supply: 10/23 Rx Expiration Date: 05/06/24 Refills Remainin Indication: FOR DENTAL PREMEDICATION OUTPT CHOLECALCIF 25MCG (D3-1,000UNIT) TAB (Status = Active) TAKE ONE TABLET BY MOUTH ONCE DAILY FOR VITAMIN SUPPLEMENTATION Rx# [id number] Last Released: 03/01/24 Qty/Days Supply: 90 Rx Expiration Date: 11/16/24 Refills Remainin Indication: FOR VITAMIN D DEFICIENCY OUTPT CHOLESTYRAMINE 4GM/9GM ORAL PWD PKT (Status = Active) TAKE 1 PACKET BY MOUTH ONCE DAILY Rx# [id number] Last Released: 02/03/24 Qty/Days Supply: 60/60 Rx Expiration Date: 11/11/24 Refills Remainin OUTPT CYANOCOBALAMIN 1000MCG TAB (Status = Active) TAKE ONE TABLET BY MOUTH ONCE DAILY FOR VITAMIN SUPPLEMENTATION Rx# [id number] Last Released: 03/20/24 Qty/Days Supply: Rx Expiration Date: 10/20/24 Refills Remainin Indication: FOR PREVENTION OF VITAMIN B12 DEFICIENCY OUTPT DICYCLOMINE HCL 20MG TAB (Status = Discontinued) TAKE ONE TABLET BY MOUTH TWICE DAILY NEEDED (FOR IRRITABLE BOWEL SYNDROME) Rx# [id number] Last Released: 05/31/24 Qty/Days Supply: 40 Rx Expiration Date: 06/29/24 Refills Remainin Indication: FOR GASTROPARESIS OUTPT DICYCLOMINE HCL 20MG TAB (Status = Active) TAKE ONE TABLET BY MOUTH TWICE DAILY NEEDED (FOR IRRITABLE BOWEL SYNDROME) Rx# [id number] Last Released: 06/22/24 Qty/Days Supply: 40 Rx Expiration Date: 07/22/24 Refills Remainin Indication: FOR GASTROPARESIS OUTPT DOCUSATE NA 50MG/SENNOSIDES 8.6MG TAB (Status = Active) TAKE 1 TABLET BY MOUTH TWICE DAILY FOR CONSTIPATION Rx# [id number] Last Released: 05/29/24 Qty/Days Supply: 200/ Rx Expiration Date: 05/29/25 Refills Remainin Indication: FOR CONSTIPATION OUTPT FERROUS SULFATE 325MG TAB (Status = Discontinued) TAKE ONE TABLET BY MOUTH ONCE DAILY TO SUPPLEMENT IRON Rx# [id number] Last Released: 12/15/23 Qty/Days Supply: Rx Expiration Date: 07/22/24 Refills Remainin OUTPT FERROUS SULFATE 325MG TAB (Status = Discontinued) TAKE ONE TABLET BY MOUTH ONCE DAILY TO SUPPLEMENT IRON Rx# [id number] Last Released: 04/17/24 Qty/Days Supply: Rx Expiration Date: 04/15/25 Refills Remainin OUTPT FERROUS SULFATE 325MG TAB (Status = Active) TAKE ONE TABLET BY MOUTH ONCE DAILY TO SUPPLEMENT IRON Rx# [id number] Last Released: Supply: Rx Expiration Date: 05/29/25 Refills Remainin OUTPT LEVOTHYROXINE NA (SYNTHROID) 125MCG TAB (Status = Discontinued) TAKE ONE TABLET BY MOUTH EVERY MORNING 30 MINUTES BEFORE BREAKFAST FOR THYROID TAKE ON AN EMPTY STOMACH WITH A FULL GLASS OF WATER Rx# [id number] Last Released: 02/09/24 Qty/Days Supply: Rx Expiration Date: 08/22/24 Refills Remainin Indication: FOR THYROID OUTPT LEVOTHYROXINE NA (SYNTHROID) 125MCG TAB (Status = Active) TAKE ONE TABLET BY MOUTH EVERY MORNING 30 MINUTES BEFORE BREAKFAST FOR THYROID TAKE ON AN EMPTY STOMACH WITH A FULL GLASS OF WATER Rx# [id number] Last Released: 05/30/24 Qty/Days Supply: Rx Expiration Date: 05/29/25 Refills Remainin Indication: FOR THYROID OUTPT LIDOCAINE 5% OINT (Status = Discontinued) APPLY SMALL AMOUNT TOPICALLY ONCE DAILY NEEDED FOR ITCHING Rx# [id number] Last Released: 04/13/24 Qty/Days Supply: Rx Expiration Date: 01/31/25 Refills Remainin Indication: FOR ITCHING OUTPT LIDOCAINE 5% OINT (Status = Active/Suspended) APPLY SMALL AMOUNT TOPICALLY ONCE DAILY NEEDED FOR ITCHING Rx# [id number] Last Released: QtDays Supply: Rx Expiration Date: 05/29/25 Refills Remainin Indication: FOR ITCHING Non-VA LORAZEPAM 0.5MG TAB TAKE ONE TABLET BY MOUTH ONCE DAILY NEEDED Medication prescribed by Non-VA provider. OUTPT MAGNESIUM OXIDE 420MG TAB (Status = Active) TAKE ONE TABLET BY MOUTH ONCE DAILY Rx# [id number] Last Released: 03/01/24 Qty/Days Supply: Rx Expiration Date: 11/09/24 Refills Remainin Indication: Migraine Non-VA MARIJUANA MISCELLANEOUS USE DIRECTED OUTPT MULTIVIT/OPHTH AREDS2/LUTE/ZEAX CAP/TAB (Status = Discontinued) TAKE 1 CAPSULE BY MOUTH TWICE DAILY IN THE MORNING AND EVENING, WITH FOOD Rx# [id number] Last Released: 03/01/24 Qty/Days Supply: 120/60 Rx Expiration Date: 08/22/24 Refills Remainin OUTPT MULTIVIT/OPHTH AREDS2/LUTE/ZEAX CAP/TAB (Status = Active) TAKE 1 CAPSULE BY MOUTH TWICE DAILY IN THE MORNING AND EVENING, WITH FOOD Rx# [id number] Last Released: 05/11/24 Qty/Days Supply: 120/60 Rx Expiration Date: 05/09/25 Refills Remainin OUTPT PANTOPRAZOLE NA 40MG EC TAB (Status = Discontinued) TAKE ONE TABLET BY MOUTH TWICE DAILY Rx# [id number] Last Released: 03/12/24 Qty/Days Supply: Rx Expiration Date: 12/30/24 Refills Remainin OUTPT PANTOPRAZOLE NA 40MG EC TAB (Status = Discontinued) TAKE ONE TABLET BY MOUTH ONCE DAILY Rx# [id number] Last Released: 05/01/24 Qty/Days Supply: Rx Expiration Date: 04/12/25 Refills Remainin OUTPT PANTOPRAZOLE NA 40MG EC TAB (Status = Discontinued) TAKE ONE TABLET BY MOUTH ONCE DAILY Rx# [id number] Last Released: 05/30/24 Qty/Days Supply: Rx Expiration Date: 05/29/25 Refills Remainin OUTPT PANTOPRAZOLE NA 40MG EC TAB (Status = Active) TAKE ONE TABLET BY MOUTH EVERY MORNING 30 MINUTES BEFORE BREAKFAST FOR EXCESSIVE PRODUCTION OF STOMACH ACID Rx# [id number] Last Released: Qty/Days Supply: Rx Expiration Date: 05/31/25 Refills Remainin Indication: FOR EXCESSIVE PRODUCTION OF STOMACH ACID OUTPT PAROXETINE HCL 40MG TAB (Status = Active) TAKE ONE TABLET BY MOUTH DAILY Rx# [id number] Last Released: 05/01/24 Qty/Days Supply: 90 Rx Expiration Date: 01/31/25 Refills Remainin Non-VA PROBIOTIC (CULTURELLE DIGESTIVE DAILY) CAP/TAB TAKE BY MOUTH ONCE DAILY Medication prescribed by Non-VA provider. OUTPT PROCHLORPERAZINE MALEATE 10MG TAB (Status = Discontinued) TAKE ONE TABLET BY MOUTH TWICE DAILY NEEDED FOR NAUSEA AND VOMITING Rx# [id number] Last Released: 05/31/24 Qty/Days Supply: 6030 Rx Expiration Date: 06/29/24 Refills Remainin Indication: FOR NAUSEA AND VOMITING OUTPT PROCHLORPERAZINE MALEATE 10MG TAB (Status = Active) TAKE ONE TABLET BY MOUTH TWICE DAILY NEEDED FOR NAUSEA AND VOMITING Rx# [id number] Last Released: 06/22/24 Qty/Days Supply: 6030 Rx Expiration Date: 07/22/24 Refills Remainin Indication: FOR NAUSEA AND VOMITING OUTPT SIMVASTATIN 40MG TAB (Status = Discontinued) TAKE ONE-HALF TABLET BY MOUTH AT BEDTIME FOR CHOLESTEROL Rx# [id number] Last Released: 03/01/24 Qty/Days Supply: 45 Rx Expiration Date: 08/22/24 Refills Remainin Indication: FOR HIGH CHOLESTEROL OUTPT SIMVASTATIN 40MG TAB (Status = Active) TAKE ONE-HALF TABLET BY MOUTH AT BEDTIME FOR CHOLESTEROL Rx# [id number] Last Released: 05/30/24 Qty/Days Supply: 45 Rx Expiration Date: 05/29/25 Refills Remainin Indication: FOR HIGH CHOLESTEROL OUTPT SODIUM FLUORIDE 1.1% TOOTHPASTE (Status = Active) BRUSH SMALL AMOUNT TO TEETH TWICE DAILY FOR TOOTH DECAY PREVENTION Rx# [id number] Last Released: 07/12/23 Qty/Days Supply: 51/60 Rx Expiration Date: 07/08/24 Refills Remainin Indication: FOR TOOTH DECAY PREVENTION OUTPT SUCRALFATE 1GM TAB (Status = Discontinued) TAKE ONE TABLET BY MOUTH TWICE DAILY ON AN EMPTY STOMACH. TAKE UPON AWAKENING AND BEFORE BED Rx# [id number] Last Released: 05/01/24 Qty/Days Supply: 60/30 Rx Expiration Date: 01/20/25 Refills Remainin OUTPT SUCRALFATE 1GM TAB (Status = Active) TAKE ONE TABLET BY MOUTH TWICE DAILY ON AN EMPTY STOMACH. TAKE UPON AWAKENING AND BEFORE BED Rx# [id number] Last Released: 05/30/24 Qty/Days Supply: Rx Expiration Date: 05/29/25 Refills Remainin SUPPLIES PHARMACY TERMS AND POSSIBLE PATIENT ACTIONS INPT = [place] inpatient order IV = [place] intravenous medication OUTPT = [place] outpatient prescription PHARMACY POSSIBLE PATIENT TERMS EXPLANATION ACTIONS -------- ---- ACTIVE A prescription that can be If you have refills, filled at the local [place] pharmacy. you may request a refill of this prescription from your [place] pharmacy. CLINIC A medication you received during If you have questions a visit to a [place] clinic or about this medication emergency department. contact your [place] healthcare team. DISCONTINUED A prescription your provider has Contact your [place] stopped. It is no longer healthcare team if you available to be sent to you or need more of this picked up at the [place] pharmacy medication. window. A prescription which is too old Contact your [place] to fill. This does not refer to healthcare team if you the expiration date of the need more of this medication in the container. medication. NON-VA A medication that came from If this medication someplace other than a VA information is pharmacy. This may be a incorrect or out of prescription from either the VA date, please tell your or non VA providers that was VA healthcare team. filled outside the VA. Or, it may be an kypa-zdg-soenvts (OTC), herbal, dietary supplements or sample medication. ON HOLD An active prescription that will Contact your [facility] not be filled until pharmacy pharmacy when you need resolves the issue. more of this medication. PARKED An active prescription that will Contact your [facility] not be filled until the patient pharmacy when you need requests it. this medication. PENDING This prescription order has been If you have been sent to the pharmacy for review instructed to start and is not ready yet. this medication now, contact your VA pharmacy. SUSPENDED An active prescription that is Contact your VA not scheduled to be filled yet. pharmacy if you need You should receive it before this medication now. you run out. 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
--- NOTE | 2025-01-30 15:21 | MHC.OFFVIS ---
Vital Signs 01/30/25 15:23 Weight 199 lb BP 144/83 H Blood Pressure Location Lt brachial Position Sitting Respiration 20 Pulse 113 H Pulse Source Pulse Oximeter Pulse Oximetry (%) 95 Oxygen Delivery Method Room Air Intake Visit Reasons: FU patient req Human Services Case Manager Required: No Allergies No Known Allergies Allergy (Verified 10/18/24 15:33) HPI Comments Details: El is in my office after long period of absence. He reported his intrathecal pump went dry. We need to marshall in his medication and fill it up as soon as possible. We will provide rushing order to the people He is currently receiving Dilaudid bupivacaine and baclofen in his pump. He started to reports some improvement with his pain in the back. He complained more advanced pain in the neck. Possibility of treating this condition with SCS was discussed in the past with the patient however now presenting issue is the nonfunctioning intrathecal device. [facility] Medical History Obesity PTSD (post-traumatic stress disorder) GERD (gastroesophageal reflux disease) Hypercholesteremia Hypothyroid Retrolisthesis of vertebrae Spondylosis, lumbar, with myelopathy Degeneration, intervertebral disc, cervical Disc degeneration, lumbar Chronic pain syndrome Surgical History S/P insertion of spinal cord stimulator History of total left knee replacement Social History Patient Tobacco Use Status: Never used Tobacco Review of Systems Const All systems reviewed & are unremarkable except as noted in HPI and below Physical Exam Vital Signs: Last Vital Signs Pulse 113 H 01/30/25 15:23 Resp 20 01/30/25 15:23 BP 144/83 H 01/30/25 15:23 Pulse Ox 95 01/30/25 15:23 Oxygen Delivery Method Room Air 01/30/25 15:23 Last Vital Signs Pulse 74 06/30/23 17:30 Resp 16 06/30/23 17:30 BP 137/42 L 06/30/23 17:30 Pulse Ox 99 06/30/23 17:30 O2 Del Method Room Air 06/30/23 17:30 BMI result Body Mass Index 27.9 Const General: cooperative, comfortable, no acute distress and alert Orientation/consciousness: oriented to person, oriented to place, oriented to time and patient oriented x3 Chest Other: Very limited range of motion of the cervical spine. Tenderness on palpation in projection of the almost entire cervical spine. No pain radiation into bilateral upper extremities. Valsalva maneuver aggravates the patient's pain minimally. Resp Effort & Inspection: normal respiratory effort, able to speak in complete sentences, normal respiratory pattern, no audible wheezes, no cough and respiratory effort not decreased Cardio Jugular venous distension: no JVD Back/Spine/Pelvis Thoracic/Lumbar Spine: paraspinal muscle tenderness, thoracic spinal tenderness and lumbar spinal tenderness Neuro General: oriented to person, oriented to place, oriented to time and patient oriented x3 Assessment & Plan Assessment & Plan (1) Retrolisthesis of vertebrae: Code(s): M43.10 - Spondylolisthesis, site unspecified Category: Medical (2) Chronic pain syndrome: Code(s): G89.4 - Chronic pain syndrome Category: Medical (3) Disc degeneration, lumbar: Code(s): M51.36 - Other intervertebral disc degeneration, lumbar region Category: Medical (4) Degeneration, intervertebral disc, cervical: Code(s): M50.30 - Other cervical disc degeneration, unspecified cervical region Category: Medical (5) Spondylosis, lumbar, with myelopathy: Code(s): M47.16 - Other spondylosis with myelopathy, lumbar region Category: Medical (6) Spondylosis of cervical joint without myelopathy: Code(s): M47.812 - Spondylosis without myelopathy or radiculopathy, cervical region Category: Medical (7) Spondylosis of lumbar region without myelopathy or radiculopathy: Code(s): M47.816 - Spondylosis without myelopathy or radiculopathy, lumbar region Category: Medical Plan The new medication will be as hydromorphone Dilaudid 2 milligrams/mL bupivacaine 23 milligrams/mL and baclofen 400 micro g per mL. We will refill this pump as soon as possible. We will be starting out other issues including his pain in the neck cervicalgia after we will sort out the situation with his pain pump. Coding Level of Care Code Est Pt Level 3 (65234) Diagnoses Retrolisthesis of vertebrae M43.10 Chronic pain syndrome G89.4 Disc degeneration, lumbar M51.36 Degeneration, intervertebral disc, cervical M50.30 Spondylosis, lumbar, with myelopathy M47.16 Spondylosis of cervical joint without myelopathy M47.812 Spondylosis of lumbar region without myelopathy or radiculopathy M47.816
[2025-01-30 15:23] VITALS: BP 144/83; PULSE 113; RESP 20; O2SAT 95
--- OUTSIDE RECORDS SUMMARY | 2025-01-30 15:32 | XMS_ITS | Clinical Summary ---
Author Organization [facility] Address [address] [place] [address] Phone Care Team Providers Care State Epidemiologist Name Role Phone El Horner Primary Care Provider [phone] Allergies No known active allergies Medications aspirin [...] Date Site/Laterality Comments CARPAL TUNNEL RELEASE PROCEDURE: [place] NEUROPLASTY &/TRANSPOS MEDIAN NRV CARPAL TUNNE; COMMENT: BILAT TOTAL KNEE ARTHROPLASTY PROCEDURE: HISTORICAL TOTAL KNEE REPLACE; COMMENT: LEFT 2002 ESOPHAGOGASTRODUODENOSCOPY 08/17/07 PROCEDURE: [place] EGD TRANSORAL BIOPSY SINGLE/MULTIPLE; COMMENT: Normal esophagus, [...] Obesity, unspecified 08/03/2005 DX:Obesity, unspecified Other thalassemia ([facility]/HCC V24) 08/03/2005 DX:Other thalassemia ([facility]) Unspecified hypothyroidism 08/03/2005 DX:Un specified hypothyroidism Esophageal [...] attempted x 2 during 2014 at the [facility]. Suboptimal bowel prep both times. Consider Cologuard [...] 01/19/2022 11:33 AM EDT Plan of Treatment Upcoming Encounters Date Type Department Care Team (Late st Contact Info) Description 05/13/2025 1:00 PM EDT Office Visit Adult Medicine [facility] [address] [place] [address] El Horner, [place] [address] [place] [address] Health Maintenance Due Date Last Done Comments Hepatitis A Vaccines (1 of 2 - Risk 2-dose series) 10/31/1970 RSV Immunization Adult Patients (1 - Risk 60-74 years 1-dose series) 2011 Depression Screening 06/23/2022 Falls Risk Assessment 06/23/2022 Medicare Annual Wellness Visit 06/23/2022 Social Influencers of Health Screening 06/23/2022 COVID-19 Vaccine ( season) 2024 06/27/2021, 11/13/2020, 10/16/2020 Hypertension/CHF/CAD Annual BMP Blood Test 01/19/2025 01/20/2024, 12/11/2021, 05/19/2021, Additional history exists Influenza Vaccine (#1) 2025 , 06/20/2019, 06/26/2018, Additional history exists Cholesterol Screening (Lipid Panel) [...] age to complete this topic Meningococcal B Vaccine Aged Out No l onger eligible based on patient's age to complete [...] Results * Annual BMP Blood Test (12/11/2021) [facility] Annual BMP Blood Test abstracted [facility] Provider HEALTH MAINTENANCE Final Result * (ABNORMAL) Lipid panel (12/11/2021) [facility] LDL/HDL Ratio 3 0 - 4 Triglycerides 70 0 - 150 mg/dL Cholesterol 171 0 - 200 mg/dL HDL 53 >=40 mg/dL LDL Cholesterol 104(A) 0 - 100 mg/dL Blood Venous blood specimen / Unknown Result [facility] Provider LAB BLOOD ORDERABLES Mady l Result * Colonoscopy (09/08/2021) [facility] Colonoscopy no interpretation , abstracted Anatomical Region Laterality Modality Other [facility] Provider HEALTH MAINTENANCE Final Result * Hepatitis C Screening (09/24/2014) [facility] Hepatitis C Screening abstracted [facility] Provider HEALTH MAINTENANCE Final Result from Last 3 Months or Most Recently Relevant to Health Maintenance Insurance ADMINISTRATION MEDICARE Care Teams State Epidemiologist Relationship Specialty Start Date End Date El Horner PA [address] [place] [address] PCP - General Internal Medicine 05/26/21
--- OUTSIDE RECORDS SUMMARY | 2025-01-30 15:32 | XMS_ITS | Encounter Summary ---
Author Organization [facility] Address [address] [place] [address] Care Team Providers Care Field Crop Harvest Worker Name Role Phone Jean-Claude Ch MD Primary Care Provider [phone] El Horner PA-C Primary Care Provider [phone] Encounter Details Date Type Department Care Team Description 03/21/2019 Manager Organizational Report Medical Records [address] [place] [id number] Claude Tovar MD Social History Tobacco Use [...] on filedocumented in this encounter Care Teams Field Crop Harvest Worker Relationship Specialty Start Date End Date Jean-Claude Ch MD [address] [place] [id number] PCP - General 06/24/1993 05/25/21 El Horner PA-C [address] [place] [address] [id number] PCP - General Internal Medicine 05/26/21 documented as of this encounter
== END 2025-01-30 15:31 | disposition home or self-care (01) ==
PROVIDERS: PCP Hospitalist; Visit Provider Anesthesiology
DX: M43.10 Spondylolisthesis, site unspecified (principal); G89.4 Chronic pain syndrome; M51.369 Other intervertebral disc degeneration, lumbar region without mention of lumbar back pain or lower extremity pain; M50.30 Other cervical disc degeneration, unspecified cervical region; M47.16 Other spondylosis with myelopathy, lumbar region; M47.812 Spondylosis without myelopathy or radiculopathy, cervical region; M47.816 Spondylosis without myelopathy or radiculopathy, lumbar region
CPT/HCPCS: 99213

== ENCOUNTER → 2025-01-30 15:22 | Outpatient (BNVA) | payer OTHER, SELFPAY | PROVIDERS: PCP Hospitalist; Visit Provider Anesthesiology | DX: M47.812 Spondylosis without myelopathy or radiculopathy, cervical region (principal); M47.816 Spondylosis without myelopathy or radiculopathy, lumbar region; M47.16 Other spondylosis with myelopathy, lumbar region; M50.30 Other cervical disc degeneration, unspecified cervical region; M51.360 Other intervertebral disc degeneration, lumbar region with discogenic back pain only; G89.4 Chronic pain syndrome; M43.10 Spondylolisthesis, site unspecified | CPT/HCPCS: 99212 ==

== ENCOUNTER 2025-02-01 12:33 | Outpatient (AMB) | payer OTHER, SELFPAY ==
--- OUTSIDE RECORDS SUMMARY | 2025-02-01 12:35 | XMS_ITS | Encounter Summary ---
Author Name [facility] Organization [facility] Address [address] [place] [id number] Care Team Providers Care Cable Supervisor Name Role Phone ERICH AYALA Primary Care Provider Unavailpipe e Insurance Providers: All historical and current [...] Name Patient's Relationship to Policy [facility]) MEDICARE ADVANTAGE [facility] ([facility]) Aug 25, 2001 [facility] ([facility]) [id number] ADRIANA GELLER PATIENT MEDICARE ([facility]) MEDICARE (M) PART A Oct 23, 2016 PART A [id number] QUE GELLER PATIENT MEDICARE ([facility]) MEDICARE (M) PART B Oct 23, 2016 PART B [id number] [phone] QUE GELLER PATIENT MEDICARE ([facility]) MEDICARE (M) PART B Jul 25, 2011 PART B [id number] [phone] QUE GELLER PATIENT MEDICARE ([facility]) MEDICARE (M) PART B Jul 25, 2011 PART B [id number] QUE GELLER PATIENT MEDICARE (WNR) MEDICARE (M) PART B Jul 25, 2011 PART B [id number] QUE GELLER PATIENT MEDICARE (WNR) MEDICARE (M) PART B Jul 25, 2011 PART B [id number] QUE GELLER PATIENT MEDICARE (WNR) MEDICARE (M) PART A Apr 24, 2004 PART A [id number] QUE GELLER PATIENT MEDICARE (WNR) MEDICARE (M) PART A Apr 24, 2004 PART A [id number] QUE GELLER PATIENT MEDICARE (WNR) MEDICARE (M) PART A Apr 24, 2004 PART A [id number] QUE GELLER PATIENT MEDICARE (WNR) MEDICARE (M) PART A Apr 24, 2004 PART A [id number] [phone] QUE GELLER PATIENT Selected Encounter This [...] ADVANCE DIRECTIVE RONY URRUTIA CT CNTR L CORINNA MARTINEZ [facility]
--- OUTSIDE RECORDS SUMMARY | 2025-02-01 12:35 | XMS_ITS | Clinical Summary ---
Author Organization [facility] Address [address] [place] [address] Phone Care Team Providers Care Waste Oil Pumper Name Role Phone El Horner Primary Care Provider [phone] Allergies No known active allergies Medications aspirin [...] Date Site/Laterality Comments CARPAL TUNNEL RELEASE PROCEDURE: [place] NEUROPLASTY &/TRANSPOS MEDIAN NRV CARPAL TUNNE; COMMENT: BILAT TOTAL KNEE ARTHROPLASTY PROCEDURE: HISTORICAL TOTAL KNEE REPLACE; COMMENT: LEFT 2002 ESOPHAGOGASTRODUODENOSCOPY 08/17/07 PROCEDURE: [place] EGD TRANSORAL BIOPSY SINGLE/MULTIPLE; COMMENT: Normal esophagus, [...] Obesity, unspecified 08/03/2005 DX:Obesity, unspecified Other thalassemia ([facility]/HCC V24) 08/03/2005 DX:Other thalassemia ([facility]) Unspecified hypothyroidism 08/03/2005 DX:Un specified hypothyroidism [...] attempted x 2 during 2014 at the [facility]. Suboptimal bowel prep both times. Consider [...] 1:00 PM EDT Office Visit Adult Medicine [facility] [address] [place] [address] El Horner, [place] [address] [place] [address] Health Maintenance Due Date Last Done Comments [...] Results * Annual BMP Blood Test (12/11/2021) [facility] Annual BMP Blood Test abstracted [facility] Provider HEALTH MAINTENANCE Final Result * (ABNORMAL) Lipid panel (12/11/2021) [facility] LDL/HDL Ratio 3 0 - 4 Triglycerides 70 0 - 150 mg/dL Cholesterol 171 0 - 200 mg/dL HDL 53 >=40 mg/dL LDL Cholesterol 104(A) 0 - 100 mg/dL Blood Venous blood specimen / Unknown Result [facility] Provider LAB BLOOD ORDERABLES Mady l Result * Colonoscopy (09/08/2021) [facility] Colonoscopy no interpretation , abstracted Anatomical Region Laterality Modality Other [facility] Provider HEALTH MAINTENANCE Final Result * Hepatitis C Screening (09/24/2014) [facility] Hepatitis C Screening abstracted [facility] Provider HEALTH MAINTENANCE Final Result from Last 3 Months or Most Recently Relevant to Health Maintenance Insurance ADMINISTRATION MEDICARE Care Teams Waste Oil Pumper Relationship Specialty Start Date End Date El Horner PA [address] [place] [address] PCP - General Internal Medicine 05/26/21
[2025-02-01 12:40] VITALS: BP 145/68; PULSE 79; RESP 18; O2SAT 97
--- NOTE | 2025-02-01 12:56 | MHC.OFFVIS ---
Vital Signs 02/01/25 12:40 Weight 200 lb BP 145/68 H Blood Pressure Location Lt brachial Position Sitting Respiration 18 Pulse 79 Pulse Source Pulse Oximeter Pulse Oximetry (%) 97 Oxygen Delivery Method Room Air Intake Visit Reasons: ITDD REFILL Allergies No Known Allergies Allergy (Verified 10/18/24 15:33) HPI Comments Details: El is in my office to refill his pump. The pump went dry. The pump will be refilled as below. He is currently receiving Dilaudid bupivacaine and baclofen in his pump. He started to reports some improvement with his pain in the back. He complained more advanced pain in the neck. Possibility of treating this condition with SCS was discussed in the past with the patient however now presenting issue is the nonfunctioning intrathecal device. COUNTS INCLUDE 234 BEDS AT THE [facility] Medical History Obesity PTSD (post-traumatic stress disorder) GERD (gastroesophageal reflux disease) Hypercholesteremia Hypothyroid Retrolisthesis of vertebrae Spondylosis, lumbar, with myelopathy Degeneration, intervertebral disc, cervical Disc degeneration, lumbar Chronic pain syndrome Surgical History S/P insertion of spinal cord stimulator History of total left knee replacement Social History Patient Tobacco Use Status: Never used Tobacco Review of Systems Const All systems reviewed & are unremarkable except as noted in HPI and below Physical Exam Vital Signs: Last Vital Signs Pulse 79 02/01/25 12:40 Resp 18 02/01/25 12:40 BP 145/68 H 02/01/25 12:40 Pulse Ox 97 02/01/25 12:40 Oxygen Delivery Method Room Air 02/01/25 12:40 Last Vital Signs Pulse 74 06/30/23 17:30 Resp 16 06/30/23 17:30 BP 137/42 L 06/30/23 17:30 Pulse Ox 99 06/30/23 17:30 O2 Del Method Room Air 06/30/23 17:30 BMI result Body Mass Index 27.9 Const General: cooperative, comfortable, no acute distress and alert Orientation/consciousness: oriented to person, oriented to place, oriented to time and patient oriented x3 Chest Other: Very limited range of motion of the cervical spine. Tenderness on palpation in projection of the almost entire cervical spine. No pain radiation into bilateral upper extremities. Valsalva maneuver aggravates the patient's pain minimally. Resp Effort & Inspection: normal respiratory effort, able to speak in complete sentences, normal respiratory pattern, no audible wheezes, no cough and respiratory effort not decreased Cardio Jugular venous distension: no JVD Back/Spine/Pelvis Thoracic/Lumbar Spine: paraspinal muscle tenderness, thoracic spinal tenderness and lumbar spinal tenderness Neuro General: oriented to person, oriented to place, oriented to time and patient oriented x3 Assessment & Plan Assessment & Plan (1) Retrolisthesis of vertebrae: Code(s): M43.10 - Spondylolisthesis, site unspecified Category: Medical (2) Chronic pain syndrome: Code(s): G89.4 - Chronic pain syndrome Category: Medical (3) Disc degeneration, lumbar: Code(s): M51.36 - Other intervertebral disc degeneration, lumbar region Category: Medical (4) Degeneration, intervertebral disc, cervical: Code(s): M50.30 - Other cervical disc degeneration, unspecified cervical region Category: Medical (5) Spondylosis, lumbar, with myelopathy: Code(s): M47.16 - Other spondylosis with myelopathy, lumbar region Category: Medical Plan: The pump refill see as below. (6) Spondylosis of cervical joint without myelopathy: Code(s): M47.812 - Spondylosis without myelopathy or radiculopathy, cervical region Category: Medical Plan: The pump refill see as below. the patient was informed that he can come back to the office in about 2 weeks and we will increase the doses of his pump. If he feel comfortable on current doses we will schedule him for the next pump refill in 85 days from now. (7) Spondylosis of lumbar region without myelopathy or radiculopathy: Code(s): M47.816 - Spondylosis without myelopathy or radiculopathy, lumbar region Category: Medical Plan Intrathecal pump refill. ? THE PATIENT CAME TODAY IN office FOR THE CHANGE OF THE MEDICATION IN his PAIN PUMP. The name and date of were verified and informed consent was obtained for the procedure. ? ?The pump was interrogated and the residual amount of fluid was found to be 0mL. HE WAS POSITIONED prone on the bed AND THE AREA OF THE INTRATHECAL PUMP WAS PREPPED WITH CHLORAPREP. The fenestrated drape was sterilely applied over the area of the pump. Sterile gloves were worn and of the aspiration system was assembled containing 2 in 22 gauge noncoring needle, the needle was connected to extension tubing which was connected to the 20 cc sterile syringe. The pain pump was palpated under the skin in the patient's right buttock area. The needle was inserted through the skin and the central plug of the pain pump and fluid was aspirated. The clear fluid was going into the syringe the total amount of the fluid was 0.2 mL .. After that a new batch? of medication was obtained which was containing new concentration of Dilaudid Dilaudid 2000 micro g , concentration of Bupivacain 23 mg per ml and baclofen 200 micro g per mL. The admixture was made in 20 cc syringe prepared by [facility] compounding pharmacy. The syringe was connected to the bacterial filter, and then connected to the extension tubing. After that the medication in the syringe was slowly instilled into the pump with aspirations at 15 and 5 cc gibbs.? The pump continuous infusion was established as 420 mcg a day with corresponding doses of 4.831 mg of bupivacain and 84 mcg of baclifen. Coding Level of Care Code Procedure Only Diagnoses Retrolisthesis of vertebrae M43.10 Chronic pain syndrome G89.4 Disc degeneration, lumbar M51.36 Degeneration, intervertebral disc, cervical M50.30 Spondylosis, lumbar, with myelopathy M47.16 Spondylosis of cervical joint without myelopathy M47.812 Spondylosis of lumbar region without myelopathy or radiculopathy M47.816
== END 2025-02-01 12:57 | disposition home or self-care (01) ==
PROVIDERS: PCP Hospitalist; Visit Provider Anesthesiology
DX: M43.10 Spondylolisthesis, site unspecified (principal); G89.4 Chronic pain syndrome; M51.369 Other intervertebral disc degeneration, lumbar region without mention of lumbar back pain or lower extremity pain; M50.30 Other cervical disc degeneration, unspecified cervical region; M47.16 Other spondylosis with myelopathy, lumbar region; M47.812 Spondylosis without myelopathy or radiculopathy, cervical region; M47.816 Spondylosis without myelopathy or radiculopathy, lumbar region
CPT/HCPCS: 62370

== ENCOUNTER → 2025-02-01 12:33 | Outpatient (BNVA) | payer OTHER, SELFPAY | PROVIDERS: PCP Hospitalist; Visit Provider Anesthesiology | DX: M47.816 Spondylosis without myelopathy or radiculopathy, lumbar region (principal); M47.812 Spondylosis without myelopathy or radiculopathy, cervical region; M47.16 Other spondylosis with myelopathy, lumbar region; M50.30 Other cervical disc degeneration, unspecified cervical region; M51.360 Other intervertebral disc degeneration, lumbar region with discogenic back pain only; G89.4 Chronic pain syndrome; M43.10 Spondylolisthesis, site unspecified | CPT/HCPCS: 62370 ==

== ENCOUNTER 2025-04-25 15:17 | Outpatient (AMB) | payer OTHER, SELFPAY ==
[2025-04-25 15:49] VITALS: BP 137/84; PULSE 89; RESP 20; O2SAT 97
--- NOTE | 2025-04-25 15:49 | A.OFFVIS_ITS ---
Vital Signs 04/25/25 15:49 Weight 200 lb BP 137/84 Blood Pressure Location Lt brachial Position Sitting Respiration 20 Pulse 89 Pulse Source Pulse Oximeter Pulse Oximetry (%) 97 Oxygen Delivery Method Room Air Intake Visit Reasons: ITDD REFILL Rent Collector Required: No Allergies No Known Allergies Allergy (Verified 04/25/25 15:50) HPI Comments Details: El is in my office to refill his intrathecal pain pump he recently went to a neurosurgeon from [facility] and he was sent for the MRI of the lumbar spine. The results of the MRI unfortunately I not available to me. The patient conveyed to me opinion of the doctor. The neurosurgery on the patient's spine is not indicated. He was told ?that my back as full of arthritis ?. He also was told that some back injections could help his pain. I explained to the patient that I could possibly attempts the injections while the pump is in place however the patient needs to understand that I need to successfully aspirate the CSF from the side port of the pump and then fill up the catheter through the side port with Isovue intrathecal contrast to see the catheter and not to injured during the injection. My failure to fill up the catheter with intrathecal contrast may result in intrathecal catheter damage. Also we discussed whether or not this injection will be helping his pain. He has postlaminectomy syndrome and in the past he had hardware implanted and after that removed from his lower back. Therefore anatomical position of the patient's medial branches maybe grossly distorted. Possibility exists to aim to the facet joints themselves inject them with the steroids and this will possibly result with at least some pain alleviation. However I can not guarantee that either of the attempts would be successful to treat his pain. Patient wants me to review the MRI. We will wait until his neurosurgeon's office will send us MRI I will evaluate this MRI and make my decision during his next pump refill in June. He is currently receiving Dilaudid bupivacaine and baclofen in his pump. [facility] Medical History Obesity PTSD (post-traumatic stress disorder) GERD (gastroesophageal reflux disease) Hypercholesteremia Hypothyroid Retrolisthesis of vertebrae Spondylosis, lumbar, with myelopathy Degeneration, intervertebral disc, cervical Disc degeneration, lumbar Chronic pain syndrome Surgical History S/P insertion of spinal cord stimulator History of total left knee replacement Social History Patient Tobacco Use Status: Never used Tobacco Review of Systems Const All systems reviewed & are unremarkable except as noted in HPI and below Physical Exam Vital Signs: Last Vital Signs Pulse 89 04/25/25 15:49 Resp 20 04/25/25 15:49 BP 137/84 04/25/25 15:49 Pulse Ox 97 04/25/25 15:49 Oxygen Delivery Method Room Air 04/25/25 15:49 Last Vital Signs Pulse 74 06/30/23 17:30 Resp 16 06/30/23 17:30 BP 137/42 L 06/30/23 17:30 Pulse Ox 99 06/30/23 17:30 O2 Del Method Room Air 06/30/23 17:30 BMI result Body Mass Index 27.9 Const General: cooperative, comfortable, no acute distress and alert Orientation/consciousness: oriented to person, oriented to place, oriented to time and patient oriented x3 Chest Other: Very limited range of motion of the cervical spine. Tenderness on palpation in projection of the almost entire cervical spine. No pain radiation into bilateral upper extremities. Valsalva maneuver aggravates the patient's pain minimally. Resp Effort & Inspection: normal respiratory effort, able to speak in complete sentences, normal respiratory pattern, no audible wheezes, no cough and respiratory effort not decreased Cardio Jugular venous distension: no JVD Back/Spine/Pelvis Thoracic/Lumbar Spine: paraspinal muscle tenderness, thoracic spinal tenderness and lumbar spinal tenderness Neuro General: oriented to person, oriented to place, oriented to time and patient oriented x3 Assessment & Plan Assessment & Plan (1) Retrolisthesis of vertebrae: Code(s): M43.10 - Spondylolisthesis, site unspecified Category: Medical (2) Chronic pain syndrome: Code(s): G89.4 - Chronic pain syndrome Category: Medical (3) Disc degeneration, lumbar: Code(s): M51.36 - Other intervertebral disc degeneration, lumbar region Category: Medical (4) Degeneration, intervertebral disc, cervical: Code(s): M50.30 - Other cervical disc degeneration, unspecified cervical region Category: Medical (5) Spondylosis, lumbar, with myelopathy: Code(s): M47.16 - Other spondylosis with myelopathy, lumbar region Category: Medical Plan: The pump refill see as below. (6) Spondylosis of cervical joint without myelopathy: Code(s): M47.812 - Spondylosis without myelopathy or radiculopathy, cervical region Category: Medical (7) Spondylosis of lumbar region without myelopathy or radiculopathy: Code(s): M47.816 - Spondylosis without myelopathy or radiculopathy, lumbar region Category: Medical Plan Intrathecal pump refill. ? THE PATIENT CAME TODAY IN office FOR THE CHANGE OF THE MEDICATION IN his PAIN PUMP. The name and date of were verified and informed consent was obtained for the procedure. ? ?The pump was interrogated and the residual amount of fluid was found to be 2.1 mL. HE WAS POSITIONED prone on the bed AND THE AREA OF THE INTRATHECAL PUMP WAS PREPPED WITH CHLORAPREP. The fenestrated drape was sterilely applied over the area of the pump. Sterile gloves were worn and of the aspiration system was assembled containing 2 in 22 gauge noncoring needle, the needle was connected to extension tubing which was connected to the 20 cc sterile syringe. The pain pump was palpated under the skin in the patient's right buttock area. The needle was inserted through the skin and the central plug of the pain pump and fluid was aspirated. The clear fluid was going into the syringe the total amount of the fluid was 3.1 mL .. After that a new batch? of medication was obtained which was containing new concentration of Dilaudid Dilaudid 2000 micro g , concentration of Bupivacain 23 mg per ml and baclofen 200 micro g per mL. The admixture was made in 20 cc syringe prepared by [facility] compounding pharmacy. The syringe was connected to the bacterial filter, and then connected to the extension tubing. After that the medication in the syringe was slowly instilled into the pump with aspirations at 15 and 5 cc gibbs.? The pump continuous infusion was established as 420 mcg a day with corresponding doses of 4.831 mg of bupivacain and 84 mcg of baclifen. Coding Level of Care Code Est Pt Level 3 (90885) Procedure Only Diagnoses Retrolisthesis of vertebrae M43.10 Chronic pain syndrome G89.4 Disc degeneration, lumbar M51.36 Degeneration, intervertebral disc, cervical M50.30 Spondylosis, lumbar, with myelopathy M47.16 Spondylosis of cervical joint without myelopathy M47.812 Spondylosis of lumbar region without myelopathy or radiculopathy M47.816
--- OUTSIDE RECORDS SUMMARY | 2025-04-25 16:36 | XMS_ITS ---
[facility] Care Team Organization Name Specialty Phone Email Start Date End Da te [facility] CATHI PETIT Primary Care 06/01/2022 024
--- OUTSIDE RECORDS SUMMARY | 2025-04-25 16:36 | XMS_ITS | Encounter Summary ---
Author Organization [facility] Address [address] [place] [address] [place] [address] Phone Care Team Providers Care Office Helper Name Role Phone Sandra House NP Primary Care Provid er Encounter Details Date Type Department Care Team (Late st Contact Info) Description 06/23/2021 Procedure Pass [facility] Endoscopy Admitting Dept Virtual Department [address] [place] [address] Social History Tobacco Use Types Packs/Day Years Used Date Smoking Tobacco: Never Alcohol Use Standard Drinks/Week Comments Not Currently 0 (1 standard drink = 0.6 oz pur e alcohol) Sex and Gender Information Value Date Recorded Sex Assigned at Not on file Legal Sex Male 12:11 PM EDT Gender Identity Not on file Sexual Orientation Not on file documented as of this encounter Plan of Treatment Not on file documented as of this encounter Visit Diagnoses Not on filedocumented in this encounter Care Teams Office Helper Relationship Specialty Start Date End Date Sandra House NP [address] [place] [address] [address] [place] [address] PCP - General Family Medicine 04/17/21 documented as of this encounter Additional Source Comments The information contained in this document represents components of the legal health record. It is not the complete legal health record.[facility]
--- OUTSIDE RECORDS SUMMARY | 2025-04-25 16:36 | XMS_ITS | Encounter Summary ---
Author Organization [facility] Address [address] [place] [address] Phone Care Team Providers Care Intrusion Analyst Name Role Phone Sandra House NP Primary Care Provid er Reason for Referral * MRI/CAT Scan - Closed Specialty Diagnoses / Procedures Referred By Contac t Referred To Contact Radiology Diagnoses LLQ abdominal pain RUQ abdominal pain Nausea Abnormal weight loss Procedures CT Abdomen/Pelvis CHG CT SCAN,ABDOMENT AND PELVIS,W CONTRAST CHG CT SCAN,ABDOMENT AND PELVIS,COMBO CHG CT SCAN,ABDOMENT AND PELVIS,W/O CONTRAST Garima Kelly CNP Phone: tel: fax: mailto:[email or web address] Referral ID Status Reason Start Date Expiration Date Visits Re quested Visits Authorized [id number] Closed 04/17/2021 11/08/2021 1 1 * Hospital - Outpatient - Closed Specialty Diagnoses / Procedures Referred By Contac t Referred To Contact Radiology Diagnoses LLQ abdominal pain RUQ abdominal pain Nausea Abnormal weight loss Procedures NM Gastric Emptying Garima Kelly CNP Phone: tel: fax: mailto: Referral ID Status Reason Start Date Expiration Date Visits Re quested Visits Authorized [id number] Closed 04/03/2021 11/08/2021 1 1 Encounter Details Date Type Department Care Team (Latest Contact Info) Description 04/17/2021 Transcribe Orders Virtual Department [address] [place] [address] Garima Kelly CNP [address] [place] [address] [email or web address] LLQ abdominal pain (Primary Dx); RUQ abdominal pain; Nausea; Abnormal weight loss Social History Tobacco Use Types Packs/Day Years Used Date Smoking Tobacco: Never Assessed Sex and Gender Information Value Date Recorded Sex Assigned at Not on file Legal Sex Male 12:11 PM EDT Gender Identity Not on file Sexual Orientation Not on file documented as of this encounter Plan of Treatment Not on file documented as of this encounter Results * CT ABDOMEN/PELVIS WITH CONTRAST (05/21/2021 2:26 PM EDT) Anatomical Region Laterality Modality Abdomen, Pelvis Computed Tomogra phy 05/21/2021 2:53 PM EDT Impressions 05/21/2021 3:08 PM EDT 1. No acute abdominal/pelvic pathology. 2. Equivocal evidence of edema or circumferential wall thickening of the lowermost rectum. Correlation with physical findings recommended to exclude a mass. 3. Mild descending and sigmoid diverticulosis without signs of diverticulitis. POS - [id number] Narrative 05/21/2021 3:08 PM EDT Oral and IV contrast. No comparison FINDINGS: Liver, pancreas, spleen, adrenals, kidneys, ureters, bladder and prostate all unremarkable. Cholecystectomy. No biliary dilatation or calcified choledocholithiasis. Mild descending and sigmoid diverticulosis without signs of diverticulitis. Lower pelvis is partially obscured by bilateral metallic hip prostheses but there is a suggestion of circumferential thickening of the lowermost rectum. This could be artifact but correlation with physical findings recommended. Otherwise no signs of inflammatory bowel disease, bowel mass or obstruction. Normal appendix well-visualized. No adenopathy or ascites. No aortoiliac pathology. No hernia or abdominal wall masses. Lung bases and pleural spaces clear. Diffuse degenerative disc disease and endplate spondylosis. No acute or worrisome bony abnormalities. Neurostimulator implanted at the T8-9 level posteriorly. Procedure Note Richard Corrales MD - 05/21/2021 Oral and IV contrast. No comparison FINDINGS: Liver, pancreas, spleen, adrenals, kidneys, ureters, bladder and prostateall unremarkable. Cholecystectomy. No biliary dilatation or calcified choledocholithiasis. Mild descending and sigmoid diverticulosis without signs ofdiverticulitis. Lower pelvis is partially obscured by bilateral metallic hip prosthesesbut there is a suggestion of circumferential thickening of the lowermostrectum. This could be artifact but correlation with physical findingsrecommended. Otherwise no signs of inflammatory bowel disease, bowel mass orobstruction. Normal appendix well-visualized. No adenopathy or ascites. No aortoiliac pathology. No hernia or abdominal wall masses. Lung bases and pleural spaces clear. Diffuse degenerative disc disease and endplate spondylosis. No acute orworrisome bony abnormalities. Neurostimulator implanted at the T8-9 level posteriorly. IMPRESSION: 1. No acute abdominal/pelvic pathology. 2. Equivocal evidence of edema or circumferential wall thickening of thelowermost rectum. Correlation with physical findings recommended toexclude a mass. 3. Mild descending and sigmoid diverticulosis without signs ofdiverticulitis. POS - [id number] Garima Kelly [facility] IMG CT ABD/PELVIS Final Re sult * NM GASTRIC EMPTYING SOLID PHASE (05/07/2021 12:40 PM EDT) Anatomical Region Laterality Modality Abdomen, Pelvis Nuclear Medicine 05/07/2021 1:01 PM EDT Impressions 05/07/2021 1:02 PM EDT Delayed gastric emptying at 4 hours. Narrative 05/07/2021 1:02 PM EDT 1.1 millicurie of Tc-99m labeled sulfur colloid was administered in standard egg meal. Counts over the stomach are obtained at zero, one, two, and four hours. Time activity curve generated. At one hour 81% of counts remain in the stomach. At two hours 59% of counts remain in the stomach. At four hours 23% of counts remain in the stomach. This is at the upper normal at 2 hours and delayed at 3 hours, or the upper normal is expected to be 10%. Procedure Note Tevin Alcocer MD - 05/07/2021 1.1 millicurie of Tc-99m labeled sulfur colloid was administered instandard egg meal. Counts over the stomach are obtained at zero, one, two,and four hours. Time activity curve generated. At one hour 81% of counts remain in the stomach. At two hours 59% ofcounts remain in the stomach. At four hours 23% of counts remain in thestomach. This is at the upper normal at 2 hours and delayed at 3 hours, orthe upper normal is expected to be 10%. IMPRESSION: Delayed gastric emptying at 4 hours. Garima Kelly FACILITY OPERATIONS MANAGER IMG NM ABDOMEN Final Resu lt documented in this encounter Visit Diagnoses Diagnosis LLQ abdominal pain- Primary Abdominal pain, left lower quadrant RUQ abdominal pain Abdominal pain, right upper quadrant Nausea Nausea alone Abnormal weight loss Loss of weight LLQ abdominal pain Abdominal pain, left lower quadrant RUQ abdominal pain Abdominal pain, right upper quadrant Nausea Nausea alone Abnormal weight loss Loss of weight LLQ abdominal pain Abdominal pain, left lower quadrant RUQ abdominal pain Abdominal pain, right upper quadrant Nausea Nausea alone Abnormal weight loss Loss of weight documented in this encounter Care Teams Intrusion Analyst Relationship Specialty Start Date End Date Sandra House NP [address] [place] [address] PCP - General Family Medicine 04/17/21 documented as of this encounter Additional Source Comments The information contained in this document represents components of the legal health record. It is not the complete legal health record.[facility]
--- OUTSIDE RECORDS SUMMARY | 2025-04-25 16:36 | XMS_ITS | Encounter Summary ---
Author Organization [facility] Address [address] [place] [phone] Phone Care Team Providers Care Clinical Research Management Associate Name Role Phone Sandra House NP Primary Care Provid er Reason for Referral * Outpatient Procedure - Closed Specialty Diagnoses / Procedures Referred By Contdanya t Referred To Contact Radiology Diagnoses Dysphagia, unspecified type Nausea Procedures NM Gastric Emptying Garima Kelly CNP Phone: tel: fax: mailto:[email or web address] Referral ID Status Reason Start Date Expiration Date Visits Re quested Visits Authorized [id number] Closed 01/20/2024 01/19/2025 1 1 Encounter Details Date Type Department Care Team (Latest Contact Info) Description 01/20/2024 Transcribe Orders Virtual Department [address] [place] [address] Garima Kelly CNP [address] [place] [address] [email or web address] Dysphagia, unspecified type (Primary Dx); Nausea Social History Tobacco Use Types Packs/Day Years Used Date Smoking Tobacco: Never Alcohol Use Standard Drinks/Week Comments Not Currently 0 (1 standard drink = 0.6 oz pur e alcohol) Education Answer Date Recorded Are you interested in more education? Not on mateusz e 11/20/2022 Are you concerned about learning? Not on file 11/20/2022 No 11/20/2022 No 11/20/2022 Digital Access Answer Date Recorded No 12/14/2022 No 12/14/2022 No 12/14/2022 Reliable internet access at home? Not on file 12/14/2022 Device with a working camera? Not on file Sex and Gender Information Value Date Recorded Sex Assigned at Not on file Legal Sex Male 12:11 PM EDT Gender Identity Not on file Sexual Orientation Not on file documented as of this encounter Plan of Treatment Not on file documented as of this encounter Results * NM GASTRIC EMPTYING SOLID PHASE (02/09/2024 2:16 PM EDT) Anatomical Region Laterality Modality Abdomen, Pelvis Nuclear Medicine 02/09/2024 2:17 PM EDT Impressions 02/09/2024 3:22 PM EDT Gastric emptying study within normal limits. The previous study from 05/07/2021 reported delayed gastric emptying. ATTESTATION: I, Dr. Eros Duvall as teaching physician, have reviewed the images for this case and if necessary edited the report originally created by Richard Reyes. Narrative 02/09/2024 3:22 PM EDT NM GASTRIC EMPTYING SOLID PHASE Radionuclide gastric emptying scan: COMPARISON: CO GASTRIC EMPTYING SOLID PHASE TECHNIQUE: A dose of 0.58 mCi technetium 99m sulfur colloid was given orally mixed with a standard meal. Intermittent upright imaging of the abdomen was performed immediately, and at 1 and 2 hours, and at 4 hours if indicated. FINDINGS: Gastric emptying was: 1 hr: 45% 2 hrs: 59% 4 hrs: 98% According to accepted international standards using this technique, median normal values for emptying are: 31% at 1 hr, 76% at 2 hrs, and 99% at 4 hours. 5th percentile values for emptying are: 10% at 1 hr, 40% at 2 hrs, and 90% at 4 hours. These values apply for ingestion of 50% or greater of the standard meal (PMID: 13509815) and approximate the normative emptying values of [employer] (PMID: 28028121). Procedure Note Eros Duvall MD - 02/09/2024 CO GASTRIC EMPTYING SOLID PHASE Radionuclide gastric emptying scan: COMPARISON: CO GASTRIC EMPTYING SOLID PHASE TECHNIQUE: A dose of 0.58 mCi technetium 99m sulfur colloid was given orally mixedwith a standard meal. Intermittent upright imaging of the abdomen wasperformed immediately, and at 1 and 2 hours, and at 4 hours if indicated. FINDINGS: Gastric emptying was: 1 hr: 45% 2 hrs: 59% 4 hrs: 98% According to accepted international standards using this technique, mediannormal values for emptying are: 31% at 1 hr, 76% at 2 hrs, and 99% at 4 hours. 5th percentile values for emptying are: 10% at 1 hr, 40% at 2 hrs, and 90% at 4 hours. These values apply for ingestion of 50% or greater of the standard meal(PMID: 85492802) and approximate the normative emptying values of[facility] (PMID: [id number]). IMPRESSION: Gastric emptying study within normal limits. The previous study from05/07/2021 reported delayed gastric emptying. ATTESTATION: I, Dr. Eros Duvall as teaching physician, have reviewedthe images for this case and if necessary edited the report originallycreated by Richard Reyes. Garima Kelly SUPERVISOR LENS GENERATING IMG CO ABDOMEN Final Resu lt documented in this encounter Visit Diagnoses Diagnosis Dysphagia, unspecified type- Primary Nausea Nausea alone Dysphagia, unspecified type Nausea Nausea alone documented in this encounter Care Teams Clinical Research Management Associate Relationship Specialty Start Date End Date Sandra House NP [address] [facility] [address] [place] [address] PCP - General Family Medicine 04/17/21 documented as of this encounter Additional Source Comments The information contained in this document represents components of the legal health record. It is not the complete legal health record.[facility]
--- OUTSIDE RECORDS SUMMARY | 2025-04-25 16:37 | XMS_ITS | Encounter Summary ---
Author Organization [facility] Address [address] [place] [phone] Phone Care Team Providers Care Bone Glue Maker Name Role Phone Sandra House CHEMICAL ANALYTICAL SAMPLER Primary Care Provid er Encounter Details Date Type Department Care Team (Late st Contact Info) Description 11/14/2023 Procedure Pass [facility], Ct Scan - [address] [address] Social History Tobacco Use Types Packs/Day Years [...] on filedocumented in this encounter Care Teams Bone Glue Maker Relationship Specialty Start Date End Date Sandra House NP [address] [place] [id number] PCP - General Family Medicine 04/17/21 documented as of this encounter Additional Source Comments The information contained in this document represents components of the legal health record. It is not the complete legal health record.[facility]
--- OUTSIDE RECORDS SUMMARY | 2025-04-25 16:37 | XMS_ITS | Clinical Summary ---
Author Organization [facility] Address [address] [place] [address] Phone Care Team Providers Care Scientist Propagator Name Role Phone Sandra House NP Primary Care Provid er Allergies No known active allergies Medications aspirin 81 MG EC tablet Take 81 mg by mouth daily. Active omeprazole magnesium (PRILOSEC ORAL) Take by mouth. Active paroxetine HCl (PAXIL ORAL) Take by mouth. Active levothyroxine sodium (SYNTHROID ORAL) Take by mouth. Active SIMVASTATIN ORAL Take by mouth. Active sennosides (SENNA ORAL) Take by mouth. Active pregabalin (LYRICA ORAL) Take by mouth. Active BACLOFEN ORAL Take by mouth. Active docosahexaenoic acid/epa (FISH OIL ORAL) Take by mouth. Active Social History Tobacco Use Types Packs/Day Years [...] on file Sexual Orientation Not on file Last Filed Vital Signs Vital Sign Reading Time Taken Comments Blood Pressure 118/75 06/23/2021 12:53 PM EST Pulse 96 06/23/2021 11:52 AM EST Temperature 36.5 C (97.7 F) 06/23/2021 12:37 PM EST Respiratory Rate 19 06/23/2021 12:53 PM EST Oxygen Saturation 98% 06/23/2021 12:53 PM EST Inhaled Oxygen Concentration - - Weight - - Height - - Body Mass Index - - Plan of Treatment Health Maintenance Due Date Last Done Comments LIPID PANEL 1950 TSH LEVEL 1950 DEPRESSION SCREENING 1963 HEPATITIS C SCREENING 10/31/1969 SMOKING STATUS SCREENING (On ce After 26 Yrs) 10/31/1977 COLOGUARD 10/31/1996 FIT TEST 10/31/1996 FOBT 10/31/1996 SIGMOIDOSCOPY 10/31/1996 VIRTUAL COLONOSCOPY 10/31/1996 PNEUMOCOCCAL VACCINES (50+ years) (1 of 1 - PCV) 10/31/2001 INFLUENZA VACCINE (#1) 2025 COVID-19 VACCINE (1 - 2023-2 5 season) 2025 RSV VACCINE (1 - 1-dose 75+ series) 10/31/2026 Adult Td,Tdap Booster 07/07/2027 07/07/2017 , 01/20/2009 COLONOSCOPY 06/23/2031 06/23/2021 COLORECTAL CANCER SCREENING 06/23/2031 ZOSTER VACCINES Completed 01/22/2020, 09/24/2019 HEPATITIS A VACCINES Aged Out No long er eligible based on patient's age to complete this topic HIB VACCINES Aged Out No longer eligi ble based on patient's age to complete this topic MENINGOCOCCAL VACCINES (ACWY) Aged Out No longer eligible based on patient's age to complete this topic MENINGOCOCCAL VACCINES (B) Aged Out N o longer eligible based on patient's age to complete this topic Medical Devices Implanted Type Area Special Deputy Sheriff Device Identifier Shelf Expiration Date Model / Serial / Lot Bilat Hip Hardware Procedures Procedure Name Priority Date/Time Associated Diagnosis Comments ENDOSCOPY, COLON 06/23/2021 11:5 6 AM EST from Last 3 Months or Most Recently Relevant to Health Maintenance Results * ENDOSCOPY, COLON (06/23/2021 11:56 AM EST) Narrative Transcriptions Matty Giordano MD - 06/23/2021 11:56 AM EST Patient Name: El Zapata Attending MD:: MATTY GIORADNO MD Procedure Date: 06/23/2021 11:56AM Date of : 1950 Age: 70 Admit Type: Outpatient Gender: Male Room: [place] [address] Referring MD: Sandra Fleming Exam Type: Colonoscopy Indications: Abnormal CT of the GI tract Medications: Monitored Anesthesia Care Procedure: Informed consent was obtained from the patient after discussion of the indications, limitations, alternatives, benefits, and risks of the procedure. Risks specifically discussed include but are not limited to medication reactions, missed lesions, bleeding, perforation, or the need for emergentsurgery. Throughout the procedure, the patient's bloodpressure, pulse, end-tidal CO2, and oxygen saturations were monitored continuously. The Olympus adult variable colonoscope [id number] #6was introduced through the anus and advanced to the terminal ileum. The colonoscopy was performedwithout difficulty. The patient tolerated the procedurewell. The quality of the bowel preparation was fair. Complications: No immediate complications. Estimated blood loss:None. Findings: The perianal and digital rectal examinations were normal. Two sessile polyps were found in the hepaticflexure. The polyps were small in size. These polyps were removed with a cold snare. Resection and retrievalwere complete. The rectum, recto-sigmoid colon, sigmoid colon, descending colon, splenic flexure, transverse colon, ascending colon, cecum, appendiceal orifice,ileocecal valve, ileum, rectum (on retroflexion) and ascending colon (on retroflexion) appeared normal. Impression: - Preparation of the colon was fair. - Two small polyps at the hepatic flexure, removedwith a cold snare. Resected and retrieved. - The rectum, recto-sigmoid colon, sigmoid colon, descending colon, splenic flexure, transverse colon, ascending colon, cecum, appendiceal orifice,ileocecal valve and terminal ileum are normal. Recommendation: - Discharge patient to home. - Resume previous diet. - Continue present medications. - Await pathology results. - Repeat colonoscopy in 7 years for surveillance. - Return to GI office as previously scheduled. MATTY GIORDANO MD 06/23/2021 12:35:05 PM This report has been signed electronically. Number of Addenda: 0 Note Initiated On: 06/23/2021 11:56 AM Procedure Code(s): --- Professional --- 47794, Colonoscopy, flexible; with removal of tumor(s), polyp(s), or other lesion(s) by snare technique --- Technical --- 57877, Colonoscopy, flexible; with removal of tumor(s), polyp(s), or other lesion(s) by snare technique Diagnosis Code(s): --- Professional --- D12.3, Benign neoplasm of transverse colon (hepatic flexure or splenic flexure) R93.3, Abnormal findings on diagnostic imaging ofother parts of digestive tract --- Technical --- D12.3, Benign neoplasm of transverse colon (hepatic flexure or splenic flexure) R93.3, Abnormal findings on diagnostic imaging ofother parts of digestive tract CPT copyright 2018 [employer]. All rights reserved. The codes documented in this report are preliminary and upon vice president of academic affairs reviewmay be revised to meet current compliance requirements. Procedure Date: 06/23/2021 11:56:[address] [place] [id number] Sandra Lyon NP GI PROCEDURE ORDERAB LES Final Result from Last 3 Months or Most Recently Relevant to Health Maintenance Insurance * Guarantor: VimalEl lopez Account Type Relation to Patient Date of Phone Billing Address Personal/Family Self 1950 [address] [place] [address] MEDICARE PART A & B * Guarantor: El Zapata Account Type Relation to Patient Date of Phone Billing Address Personal/Family Self 1950 [address] [place] [address] MEDICARE PART A & B * Guarantor: El Zapata Account Type Relation to Patient Date of Phone Billing Address Personal/Family Self 1950 [address] [place] [address] MEDICARE PART A & B [facility] * Guarantor: El Zapata Account Type Relation to Patient Date of Phone Billing Address Personal/Family Self 1950 [address] [address] MEDICARE PART A & B [id number] [place] [address] * Guarantor: El Zapata Account Type Relation to Patient Date of Phone Billing Address Personal/Family Self 1950 [address] [place] [address] MEDICARE PART A & B * Guarantor: El Zapata Account Type Relation to Patient Date of Phone Billing Address Personal/Family Self 1950 [address] [address] MEDICARE PART A & B MEDICARE PART A & B [facility] MEDICARE PART A & B * Guarantor: El Zapata Account Type Relation to Patient Date of Phone Billing Address Personal/Family Self 1950 [address] [address] MEDICARE PART A & B Care Teams Scientist Propagator Relationship Specialty Start Date End Date Sandra House NP [address] [facility] [address] [place] [address] PCP - General Family Medicine 04/17/21 Additional Source Comments The information contained in this document represents components of the legal health record. It is not the complete legal health record.[facility]
--- OUTSIDE RECORDS SUMMARY | 2025-04-25 16:37 | XMS_ITS | Encounter Summary ---
Author Organization [facility] Address [address] [place] [address] Phone Care Team Providers Care Semiconductor Processing Group Leader Name Role Phone Sandra House NP Primary Care Provid er Reason for Referral * MRI/CAT Scan - Closed Specialty Diagnoses / Procedures Referred By Contac t Referred To Contact Radiology Diagnoses Diarrhea, unspecified type Nausea Abnormal weight loss Procedures CT Abdomen/Pelvis Mary Dodd PA-C Phone: tel: fax: [email or web address] Data Referral ID Status Reason Start Date Expiration Date Visits Re quested Visits Authorized [id number] Closed 11/14/2023 11/13/2024 1 1 Encounter Details Date Type Department Care Team (Latest Contact Info) Description 11/14/2023 Transcribe Orders Virtual Department [address] [place] [address] Mary Dodd PA-C [address] [place] [address] [email or web address] Diarrhea, unspecified type (Primary Dx); Nausea; Abnormal weight loss Social History Tobacco [...] encounter Results * CT ABDOMEN/PELVIS WITH CONTRAST (12/30/2023 4:47 PM EDT) Anatomical Region Laterality Modality Abdomen, Pelvis Computed Tomogra phy 12/30/2023 5:40 PM EDT Impressions 12/30/2023 9:10 PM EDT No cause for the reported symptoms identified in the abdomen/pelvis. Narrative 12/30/2023 9:[address] ABDOMEN/PELVIS WITH CONTRAST Referring clinician's provided indication for this examination in Epic: Outside Radiology Order; diarrhea TECHNIQUE: Multidetector-row CT of the abdomen and pelvis was performed after administration of intravenous contrast using tailored dose modulation techniques. Images were reconstructed in the axial, coronal, and sagittal planes. COMPARISON: CT abdomen/pelvis 05/13/2021 FINDINGS: Lower Chest: Trace left pleural fluid. Liver: No suspicious focal liver lesion. Biliary: No biliary ductal dilatation. Prior cholecystectomy. Spleen: Normal. No splenomegaly or focal lesions. Pancreas: Normal. No masses or ductal dilatation. Adrenal Glands: Normal. No nodules. Kidneys/Ureters: No solid renal mass or hydronephrosis. Bowel: No bowel obstruction or wall thickening. Colonic diverticulosis. Normal appendix. Peritoneum/Retroperitoneum: Normal. No masses, pneumoperitoneum, or fluid. Lymph Nodes: Normal. No lymphadenopathy. Pelvic Organs/Bladder: Pelvis partially obscured by metallic streak artifact. Vessels: No abdominal aortic aneurysm. Vascular calcification. Bones/Soft Tissues: No suspicious focal osseous lesion. Prior bilateral hip arthroplasties. Multiple old left rib fractures. Spine degenerative changes.Thoracic spinal nerve stimulator device present. Procedure Note Deon Stewart MD - 12/30/2023 CT ABDOMEN/PELVIS WITH CONTRAST Referring clinician's provided indication for this examination in Epic:Outside Radiology Order; diarrhea TECHNIQUE: Multidetector-row CT of the abdomen and pelvis was performedafter administration of intravenous contrast using tailored dosemodulation techniques. Images were reconstructed in the axial, coronal,and sagittal planes. COMPARISON: CT abdomen/pelvis 05/13/2021 FINDINGS: Lower Chest: Trace left pleural fluid. Liver: No suspicious focal liver lesion. Biliary: No biliary ductal dilatation. Prior cholecystectomy. Spleen: Normal. No splenomegaly or focal lesions. Pancreas: Normal. No masses or ductal dilatation. Adrenal Glands: Normal. No nodules. Kidneys/Ureters: No solid renal mass or hydronephrosis. Bowel: No bowel obstruction or wall thickening. Colonic diverticulosis.Normal appendix. Peritoneum/Retroperitoneum: Normal. No masses, pneumoperitoneum, orfluid. Lymph Nodes: Normal. No lymphadenopathy. Pelvic Organs/Bladder: Pelvis partially obscured by metallic streakartifact. Vessels: No abdominal aortic aneurysm. Vascular calcification. Bones/Soft Tissues: No suspicious focal osseous lesion. Prior bilateralhip arthroplasties. Multiple old left rib fractures. Spine degenerativechanges.Thoracic spinal nerve stimulator device present. IMPRESSION: No cause for the reported symptoms identified in the abdomen/pelvis. Mary Dodd PA-C [facility] [place] ABD/PELVIS Final Result documented in this encounter Visit Diagnoses Diagnosis Diarrhea, unspecified type- Primary Nausea Nausea alone Abnormal weight loss Loss of weight Diarrhea, unspecified type Nausea Nausea alone Abnormal weight loss Loss of weight documented in this encounter Care Teams Semiconductor Processing Group Leader Relationship Specialty Start Date End Date Sandra House NP [address] [place] [address] PCP - General Family Medicine 04/17/21 documented as of this encounter Additional Source Comments The information contained in this document represents components of the legal health record. It is not the complete legal health record.[facility]
--- OUTSIDE RECORDS SUMMARY | 2025-04-25 16:37 | XMS_ITS | Clinical Summary ---
Author Organization [facility] Address [address] [place] [address] Phone Care Team Providers Care Regional Extension Service Specialist Name Role Phone El Horner Primary Care Provider [phone] Allergies No known active allergies Medications aspirin [...] 2016 Lost some weight Thalassemia 08/03/2005 Immunizations Immunization Administration Dates Next Due Influenza Quadravalent, 0.5m [...] Date Site/Laterality Comments CARPAL TUNNEL RELEASE PROCEDURE: UT NEUROPLASTY &/TRANSPOS MEDIAN NRV CARPAL TUNNE; COMMENT: BILAT TOTAL KNEE ARTHROPLASTY PROCEDURE: HISTORICAL TOTAL KNEE REPLACE; COMMENT: LEFT 2002 ESOPHAGOGASTRODUODENOSCOPY 08/17/07 PROCEDURE: UT EGD TRANSORAL BIOPSY SINGLE/MULTIPLE; COMMENT: Normal esophagus, [...] Obesity, unspecified 08/03/2005 DX:Obesity, unspecified Other thalassemia ([facility]/HCC V24) 08/03/2005 DX:Other thalassemia ([facility]) Unspecified hypothyroidism 08/03/2005 DX:Un specified hypothyroidism Esophageal [...] attempted x 2 during 2014 at the [facility]. Suboptimal bowel prep both times. Consider [...] 1:00 PM EDT Office Visit Adult Medicine [address] [phone] [place], [place] [address] [place] [phone] Health Maintenance Due Date Last Done Comments Hepatitis A Vaccines (1 of 2 - Risk 2-dose series) 10/31/1970 RSV Immunization Adult Patients (1 - Risk 60-74 years 1-dose series) 2011 Falls Risk Assessment 06/23/2022 Medicare Annual Wellness Visit 06/23/2022 Social Influencers of Health Screening 06/23/2022 Depression Screening 07/25/2024 Hypertension/CHF/CAD Annual BMP Blood Test 01/19/2025 01/20/2024, 12/11/2021, 05/19/2021, Additional history exists COVID-19 Vaccine ( season) 2025 06/27/2021, 11/13/2020, 10/16/2020 Influenza Vaccine (#1) 2025 , 06/20/2019, 06/26/2018, [...] Results * Annual BMP Blood Test (12/11/2021) [facility] Annual BMP Blood Test abstracted [facility] Provider HEALTH MAINTENANCE Final Result * (ABNORMAL) Lipid panel (12/11/2021) [facility] LDL/HDL Ratio 3 0 - 4 Triglycerides 70 0 - 150 mg/dL Cholesterol 171 0 - 200 mg/dL HDL 53 >=40 mg/dL LDL Cholesterol 104(A) 0 - 100 mg/dL Blood Venous blood specimen / Unknown [facility] Provider LAB BLOOD ORDERABLES Mady l Result * Colonoscopy (09/08/2021) [facility] Colonoscopy no interpretation , abstracted Anatomical Region Laterality Modality Other [facility] Provider HEALTH MAINTENANCE Final Result * Hepatitis C Screening (09/24/2014) [facility] Hepatitis C Screening abstracted [facility] Provider HEALTH MAINTENANCE Final Result from Last 3 Months or Most Recently Relevant to Health Maintenance Insurance ADMINISTRATION MEDICARE Care Teams Regional Extension Service Specialist Relationship Specialty Start Date End Date El Horner [place] [address] [place] [address] PCP - General Internal Medicine 05/26/21
--- OUTSIDE RECORDS SUMMARY | 2025-04-25 16:37 | XMS_ITS | Encounter Summary ---
Author Organization [facility] Address [address] [place] [phone] Phone Care Team Providers Care Pulmonologist Intensivist Name Role Phone Sandra House PASTE UP ARTIST APPRENTICE Primary Care Provid er Encounter Details Date Type Department Care Team (Late st Contact Info) Description 04/17/2021 Procedure [facility], Ct Scan - [address] [address] Social History Tobacco Use Types Packs/Day Years [...] on filedocumented in this encounter Care Teams Pulmonologist Intensivist Relationship Specialty Start Date End Date Sandra House NP [address] [place] [phone] PCP - General Family Medicine 04/17/21 documented as of this encounter Additional Source Comments The information contained in this document represents components of the legal health record. It is not the complete legal health record.[facility]
== END 2025-04-25 15:42 | disposition home or self-care (01) ==
PROVIDERS: PCP Hospitalist; Visit Provider Anesthesiology
DX: M43.10 Spondylolisthesis, site unspecified (principal); G89.4 Chronic pain syndrome; M51.369 Other intervertebral disc degeneration, lumbar region without mention of lumbar back pain or lower extremity pain; M50.30 Other cervical disc degeneration, unspecified cervical region; M47.16 Other spondylosis with myelopathy, lumbar region; M47.812 Spondylosis without myelopathy or radiculopathy, cervical region; M47.816 Spondylosis without myelopathy or radiculopathy, lumbar region; Z45.1 Encounter for adjustment and management of infusion pump
CPT/HCPCS: 62370; 99213

== ENCOUNTER → 2025-04-25 15:17 | Outpatient (BNVA) | payer OTHER, SELFPAY | PROVIDERS: PCP Hospitalist; Visit Provider Anesthesiology | DX: G89.4 Chronic pain syndrome (principal); M43.10 Spondylolisthesis, site unspecified; M51.360 Other intervertebral disc degeneration, lumbar region with discogenic back pain only; M50.30 Other cervical disc degeneration, unspecified cervical region; M47.16 Other spondylosis with myelopathy, lumbar region; M47.812 Spondylosis without myelopathy or radiculopathy, cervical region; M47.816 Spondylosis without myelopathy or radiculopathy, lumbar region | CPT/HCPCS: 62370; 99212 ==

== ENCOUNTER 2025-06-06 15:32 | Outpatient (AMB) | payer OTHER, SELFPAY ==
--- NOTE | 2025-06-06 15:38 | MHC.OFFVIS ---
Vital Signs 06/06/25 15:43 Height 5 ft 8 in Weight 212 lb BMI 32.2 BP 156/70 H Blood Pressure Location Rt brachial Position Sitting Respiration 16 Pulse 84 Pulse Source Pulse Oximeter Pulse Oximetry (%) 95 Oxygen Delivery Method Room Air Intake Visit Reasons: Discuss Injections [employer] Nurse Required: No Accompanied by: Self / Same As Patient Allergies No Known Allergies Allergy (Verified 06/06/25 15:43) HPI Comments Details: El is in my office to to discuss further management of his pain. He reports that pain pump does not help his pain. He requests me to perform some injections to help his pain. We discussed possibility of performing medial branch blocks L3-L4 dorsal ramus L5 bilateral to help his pain. I explained to the patient that in the order to perform this procedure safely I will schedule him for mg 1st. I would need to perform mg through the pain pump side port visualize the catheter under x-ray and to avoid damaging catheter by needle insertion. Patient expressed understanding. I will schedule him for the procedure. I explained to the patient that I will not be able to perform the procedure if I will not be able to aspirate CSF from the side port. He brought with him MRI of the lumbar spine which was performed at [facility]. The results of the MRI dictated as below. Prior: The patient conveyed to me opinion of the doctor. The neurosurgery on the patient's spine is not indicated. He was told ?that my back as full of arthritis ?. He also was told that some back injections could help his pain. I explained to the patient that I could possibly attempts the injections while the pump is in place however the patient needs to understand that I need to successfully aspirate the CSF from the side port of the pump and then fill up the catheter through the side port with Isovue intrathecal contrast to see the catheter and not to injured during the injection. My failure to fill up the catheter with intrathecal contrast may result in intrathecal catheter damage. Also we discussed whether or not this injection will be helping his pain. He has postlaminectomy syndrome and in the past he had hardware implanted and after that removed from his lower back. Therefore anatomical position of the patient's medial branches maybe grossly distorted. Possibility exists to aim to the facet joints themselves inject them with the steroids and this will possibly result with at least some pain alleviation. However I can not guarantee that either of the attempts would be successful to treat his pain. Patient wants me to review the MRI. We will wait until his neurosurgeon's office will send us MRI I will evaluate this MRI and make my decision during his next pump refill in June. He is currently receiving Dilaudid bupivacaine and baclofen in his pump. [facility] Medical History Obesity PTSD (post-traumatic stress disorder) GERD (gastroesophageal reflux disease) Hypercholesteremia Hypothyroid Retrolisthesis of vertebrae Spondylosis, lumbar, with myelopathy Degeneration, intervertebral disc, cervical Disc degeneration, lumbar Chronic pain syndrome Surgical History S/P insertion of spinal cord stimulator History of total left knee replacement Social History Patient Tobacco Use Status: Never used Tobacco Review of Systems Const All systems reviewed & are unremarkable except as noted in HPI and below Physical Exam Vital Signs: Last Vital Signs Pulse 84 06/06/25 15:43 Resp 16 06/06/25 15:43 BP 156/70 H 06/06/25 15:43 Pulse Ox 95 06/06/25 15:43 Oxygen Delivery Method Room Air 06/06/25 15:43 BMI result Body Mass Index 32.2 Last Vital Signs Pulse 74 06/30/23 17:30 Resp 16 06/30/23 17:30 BP 137/42 L 06/30/23 17:30 Pulse Ox 99 06/30/23 17:30 O2 Del Method Room Air 06/30/23 17:30 BMI result Body Mass Index 27.9 Const General: cooperative, comfortable, no acute distress and alert Orientation/consciousness: oriented to person, oriented to place, oriented to time and patient oriented x3 Chest Other: Very limited range of motion of the cervical spine. Tenderness on palpation in projection of the almost entire cervical spine. No pain radiation into bilateral upper extremities. Valsalva maneuver aggravates the patient's pain minimally. Resp Effort & Inspection: normal respiratory effort, able to speak in complete sentences, normal respiratory pattern, no audible wheezes, no cough and respiratory effort not decreased Cardio Jugular venous distension: no JVD Back/Spine/Pelvis Thoracic/Lumbar Spine: paraspinal muscle tenderness, thoracic spinal tenderness and lumbar spinal tenderness Neuro General: oriented to person, oriented to place, oriented to time and patient oriented x3 Results Reviewed Results Reviewed: [address] [address] Magnetic Resonance Report Signed Patient: El Zapata MR#: [id number] : 1950 Acct:[id number] Age/Sex: 70 / M CERVICAL AND THORACIC SPINE MRI WITHOUT IV CONTRST CLINICAL INFORMATION: History of surgery with cervicothoracic pain.? COMPARISON: Thoracic spine radiographs 07/01/2021.? TECHNIQUE: Multiplanar multisequence MR imaging of the cervical and thoracic spine obtained without IV contrast.? FINDINGS: CERVICAL SPINE MRI: There are postoperative changes following ACDF at C5-C6. There is anterior subluxation of C3 on C4 and C4 on C5 as well as C7 on T1. Mild disc volume loss at C6-C7 and C7-T1. There is no bone marrow edema. There are no acute fractures within the cervical spine. The craniocervical junction is unremarkable. Cervical cord morphology is normal. Partially imaged posterior fossa is unremarkable. The cervical arterial flow voids are maintained. No significant extraspinal soft tissue findings. No cord signal changes. C2-C3: Disc contour is normal. Uncovertebral joint spurring and hypertrophic facet arthropathy result in mild left-sided foraminal encroachment. C3-C4: Mild anterior subluxation. Disc osteophyte without central canal stenosis. Uncovertebral joint hypertrophy and hypertrophic facet arthropathy result in mild to moderate bilateral foraminal stenosis. C4-C5: Disc osteophyte mildly narrows the central canal. Uncovertebral joint hypertrophy and hypertrophic facet arthropathy result in severe right-sided foraminal stenosis. C5-C6: ACDF changes. No central canal stenosis. Advanced left-sided facet arthropathy results in moderate left-sided foraminal encroachment. C6-C7: A shallow central disc protrusion and ligamentum flavum thickening mildly narrow the central canal. Advanced uncovertebral joint hypertrophy and hypertrophic facet arthropathy result in moderate bilateral foraminal stenosis. C7-T1: Anterior subluxation. No central canal stenosis. Advanced bilateral facet arthropathy resulting in moderate to severe bilateral foraminal stenosis. THORACIC SPINE: Vertebral body heights are maintained. Mild to moderate disc volume loss at the mid thoracic levels. Modic type I endplate signal changes at L1-L2 and to a lesser extent T10-T11. Attic endplate Schmorl's nodes within the mid thoracic spine. There is significant marrow edema associated with the right sixth costovertebral joint, most likely degenerative/inflammatory. There is any clinical concern for trauma to this area, a CT can be obtained. Multilevel endplate osteophytes. Nondiagnostic assessment for thoracic cord signal abnormality given the degree of significant artifact obscuring the thoracic spine, particularly at the level of the spinal stimulator device. Surgical hardware not diagnostically assessed on MRI. No significant extraspinal soft tissue findings. Small paracentral disc protrusions throughout the thoracic spine highly narrow the central canal. No severe central canal stenosis within the thoracic spine. Varying degrees of mild to moderate foraminal encroachment throughout the thoracic spine. Conus terminates at the T12-L1 level. THORACIC SPINE MRI: Midthoracic kyphosis. 12 rib-bearing thoracic type vertebral bodies. Spinal stimulator device extends through the T9-T10 interlaminar space with the electrode situated along the dorsal thecal sac at T8-T10. MR/MR cervical spine wo con IMPRESSION: - Within the cervical spine there are postoperative changes following ACDF at C5-C6. Spondylitic changes throughout the cervical spine resulting in varying degrees of moderate to severe foraminal stenosis bilaterally. There is no severe central canal stenosis within the cervical spine.? ? - Spinal stimulator device extends through the T9-T10 interlaminar space with the electrode situated along the dorsal thecal sac at T8-T10. ? - There is significant marrow edema associated with the right sixth costovertebral joint, most likely degenerative/inflammatory. There is any clinical concern for trauma to this area, a CT can be obtained. ? - Multilevel thoracic spondylosis. Nondiagnostic assessment for thoracic cord signal abnormality secondary to artifact on this study. There is mild to moderate thoracic spondylosis and there is a midthoracic kyphosis. No severe central canal stenosis within the thoracic spine. No thoracic cord compression. Assessment of the thoracic cord at the level of the spinal stimulator electrode is nondiagnostic secondary to artifact from electrode. MRI lumbar spine [facility] 02/25/2025 MRI lumbar spine with and without contrast findings: Numbering: The study assumes 5 nerve rib-bearing lumbar type vertebral bodies. Alignment vertebra marrow and discs: There is minimal grade 1 anterolisthesis of L4 on L5. Otherwise alignment is maintained. Vertebral body heights are maintained. Modic type signal changes throughout the images lower thoracic and lumbar spine, most prominent at L1-L2. Multilevel endplate osteophytes. Diffuse disc desiccation and loss of intervertebral disc height. Multilevel facet arthropathy. Conus: The conus is normal in signal and contour, with normal level of termination at L1. There is no abnormal enhancement. Paraspinal tissues: There is atrophy of the posterior paraspinal musculature. There is artifact in the left lower posterior soft tissue from the implantable device. Findings by level: T11-T12: Diffuse disc bulge and facet spurring. No significant canal stenosis or neural foraminal narrowing. T12-L1: Diffuse disc bulge with endplate osteophytes, ligamentum flavum thickening, and facet spurring. Minimal spinal canal narrowing. No significant neural foraminal narrowing. L1-L2: Diffuse disc bulge, ligamentum flavum thickening, facet arthropathy. Mild spinal canal narrowing. Mild left and minimal right neural foraminal narrowing. L2-L3: Diffuse disc bulge with endplate osteophytes, ligamentum flavum thickening and facet spurring. No significant canal stenosis. Mild bilateral neural foraminal narrowing. L3-L4: Diffuse disc bulge asymmetric to were the right colon ligamentum flavum thickening and facet spurring. There is mild spinal canal narrowing. There is mild left and moderate right neural foraminal narrowing. L4-5: Anterolisthesis with uncovering of the intervertebral disc as well as diffuse disc bulge with central protrusion component, ligamentum flavum thickening, facet spurring, there is mild spinal canal narrowing and there is crowding of the traversing left L5 nerve root. This has increased. There is minimal left and mild right neural foraminal narrowing. L5-S1: Diffuse disc bulge and facet arthropathy. No significant canal stenosis. Mild bilateral neural foraminal narrowing. Assessment & Plan Assessment & Plan (1) Retrolisthesis of vertebrae: Code(s): M43.10 - Spondylolisthesis, site unspecified Category: Medical (2) Chronic pain syndrome: Code(s): G89.4 - Chronic pain syndrome Category: Medical (3) Disc degeneration, lumbar: Code(s): M51.36 - Other intervertebral disc degeneration, lumbar region Category: Medical (4) Degeneration, intervertebral disc, cervical: Code(s): M50.30 - Other cervical disc degeneration, unspecified cervical region Category: Medical (5) Spondylosis, lumbar, with myelopathy: Code(s): M47.16 - Other spondylosis with myelopathy, lumbar region Category: Medical Plan: The pump refill see as below. (6) Spondylosis of cervical joint without myelopathy: Code(s): M47.812 - Spondylosis without myelopathy or radiculopathy, cervical region Category: Medical (7) Spondylosis of lumbar region without myelopathy or radiculopathy: Code(s): M47.816 - Spondylosis without myelopathy or radiculopathy, lumbar region Category: Medical Plan El is 74 years old gentleman who is suffering from advanced disc degeneration lumbar spine, spondylosis lumbar spine, postlaminectomy syndrome lumbar and possibly vertebra genic low back pain. He has pain pump patient for many years, initially he reported that his pump was helping his pain however now he states that pain pump is not helping him at all and requests me to perform some injections. Considering the MRI as above I would perform diagnostic medial branch block see discussion as above. I would need to fill the catheter of the pain pump was contrast in the order to safely perform the procedure. If the medial branch block will be performed and if the medial branch will not help the patient I will still consider BVN RFA although he does not report pain with prolonged sitting. Patient Instructions: I here by testify that I spent 30 minutes in conversation with this patient as well as planning his care evaluating his prior records and organizing this note. Coding Level of Care Code Est Pt Level 4 (20875) Diagnoses Retrolisthesis of vertebrae M43.10 Chronic pain syndrome G89.4 Disc degeneration, lumbar M51.36 Degeneration, intervertebral disc, cervical M50.30 Spondylosis, lumbar, with myelopathy M47.16 Spondylosis of cervical joint without myelopathy M47.812 Spondylosis of lumbar region without myelopathy or radiculopathy M47.816
[2025-06-06 15:43] VITALS: BP 156/70; PULSE 84; RESP 16; O2SAT 95; BMI 32.2
--- OUTSIDE RECORDS SUMMARY | 2025-06-06 18:32 | XMS_ITS | Encounter Summary ---
Author Organization [facility] Address [address] [place] [address] [place] [address] Phone Care Team Providers Care Instrument Engineer Name Role Phone Sandra House NP Primary Care Provid er Encounter Details Date Type Department Care Team (Late st Contact Info) Description 06/23/2021 Procedure Pass [facility] Endoscopy Admitting Dept Virtual Department [address] [place] [address] Social History Tobacco Use Types Packs/Day Years [...] on filedocumented in this encounter Care Teams Instrument Engineer Relationship Specialty Start Date End Date Sandra House NP [address] [place] [address] [address] [place] [address] PCP - General Family Medicine 04/17/21 documented as of this encounter Additional Source Comments The information contained in this document represents components of the legal health record. It is not the complete legal health record.[facility]
--- OUTSIDE RECORDS SUMMARY | 2025-06-06 18:32 | XMS_ITS | Encounter Summary ---
Author Organization [facility] Address [address] [place] [address] [place] [address] Phone Care Team Providers Care Film Editor Name Role Phone Sandra House NP Primary Care Provid er Reason for Visit * Reason Onset Date Comments Direct Colonoscopy 05/23/2025 Encounter Details Date Type Department Care Team ([facility] st Contact Info) Description 05/23/2025 Telephone [facility] [address] [place] [address] Matty Sherman MD [address] [address] [email or web address] Direct Colonoscopy Social History Tobacco Use Types Packs/Day Years [...] on file documented as of this encounter Progress Notes * Tiesha Gonzalez - 05/24/2025 3:11 PM EDT Pt called in to try to schedule double with JT, please call * Robert Park - 05/23/2025 8:56 AM EDT [facility] referral received for a one year surveillance colonoscopy and EGD. Uploaded into media. Please schedule and send encounter back to me so I can obtain a [facility] auth. documented in this encounter Plan of Treatment Not on file documented as of this encounter Visit Diagnoses Not on filedocumented in this encounter Care Teams Film Editor Relationship Specialty Start Date End Date Sandra House NP [address] [facility] [address] [place] [address] PCP - General Family Medicine 04/17/21 documented as of this encounter Additional Source Comments The information contained in this document represents components of the legal health record. It is not the complete legal health record.[facility]
--- OUTSIDE RECORDS SUMMARY | 2025-06-06 18:32 | XMS_ITS | Encounter Summary ---
Author Organization [facility] Address [address] [place] [address] Phone Care Team Providers Care Medical Technologist Name Role Phone Sandra House NP Primary Care Provid er Reason for Referral * Outpatient Procedure - Closed Specialty Diagnoses / Procedures Referred By Contdanya t Referred To Contact Radiology Diagnoses Dysphagia, unspecified type Nausea Procedures NM Gastric Emptying Garima Kelly CNP Phone: tel: fax: mailto:[email or web address] Referral ID Status Reason Start Date Expiration Date Visits Re quested Visits Authorized [id number] Closed 01/20/2024 01/19/2025 1 1 Encounter Details Date Type Department Care Team (Latest Contact Info) Description 01/20/2024 Transcribe Orders Virtual Department [address] [place] [address] Garima Kelly CNP [address] [place] [address] [email or web address] Dysphagia, unspecified type (Primary Dx); Nausea Social [...] SOLID PHASE Radionuclide gastric emptying scan: COMPARISON: [place] GASTRIC EMPTYING SOLID PHASE TECHNIQUE: A dose [...] or greater of the standard meal (PMID: 17765731) and approximate the normative emptying values of [employer] (PMID: [id number]). Procedure Note Eros Duvall MD - 02/09/2024 NH GASTRIC EMPTYING SOLID PHASE Radionuclide gastric emptying scan: COMPARISON: NH GASTRIC EMPTYING SOLID PHASE TECHNIQUE: A dose [...] 50% or greater of the standard meal(PMID: 51265553) and approximate the normative emptying values of[facility] (PMID: [id number]). IMPRESSION: Gastric emptying study within normal limits. The previous study from05/07/2021 reported delayed gastric emptying. ATTESTATION: I, Dr. Eros Duvall as teaching physician, have reviewedthe images for this case and if necessary edited the report originallycreated by Richard Reyes. Garima Kelly PROJECT BUYER IMG [place] ABDOMEN Final Resu lt documented in this encounter Visit Diagnoses Diagnosis Dysphagia, unspecified type- Primary Nausea Nausea alone Dysphagia, unspecified type Nausea Nausea alone documented in this encounter Care Teams Medical Technologist Relationship Specialty Start Date End Date Sandra House NP [address] [facility] [address] [place] [address] PCP - General Family Medicine 04/17/21 documented as of this encounter Additional Source Comments The information contained in this document represents components of the legal health record. It is not the complete legal health record.[facility]
--- OUTSIDE RECORDS SUMMARY | 2025-06-06 18:32 | XMS_ITS | Encounter Summary ---
Author Organization [facility] Address [address] [place] [address] Phone Care Team Providers Care Tile Grader Name Role Phone Sandra House NP Primary Care Provid er Reason for Referral * MRI/CAT Scan - Closed Specialty Diagnoses / Procedures Referred By Contac t Referred To Contact Radiology Diagnoses Diarrhea, unspecified type Nausea Abnormal weight loss Procedures CT Abdomen/Pelvis Mary Dodd PA-C Phone: tel: fax: mailto:[email or web address] Referral ID Status Reason Start Date Expiration Date Visits Re quested Visits Authorized [id number] Closed 11/14/2023 11/13/2024 1 1 Encounter Details Date Type Department Care Team (Latest Contact Info) Description 11/14/2023 Transcribe Orders Virtual Department [address] [place] [address] Mary Dodd PA-C [address] [place] [address] [email or web address] Diarrhea, unspecified type (Primary Dx); Nausea; Abnormal [...] identified in the abdomen/pelvis. Mary Dodd PA-C [facility] [place] ABD/PELVIS Final Result documented in this encounter Visit Diagnoses Diagnosis Diarrhea, unspecified type- Primary Nausea Nausea alone Abnormal weight loss Loss of weight Diarrhea, unspecified type Nausea Nausea alone Abnormal weight loss Loss of weight documented in this encounter Care Teams Tile Grader Relationship Specialty Start Date End Date Sandra House NP [address] [place] [address] PCP - General Family Medicine 04/17/21 documented as of this encounter Additional Source Comments The information contained in this document represents components of the legal health record. It is not the complete legal health record.[facility]
--- OUTSIDE RECORDS SUMMARY | 2025-06-06 18:32 | XMS_ITS | Encounter Summary ---
Author Organization [facility] Address [address] [place] [address] Phone Care Team Providers Care Screen Tender Name Role Phone Sandra House NP Primary [...] CONTRAST Garima Kelly CNP Phone: tel: fax: mailto:[email or web address] Referral ID Status Reason Start Date Expiration Date Visits Re quested Visits Authorized [id number] Closed 04/17/2021 11/08/2021 1 1 * Hospital - Outpatient - Closed Specialty Diagnoses / Procedures Referred By Contac t Referred To Contact Radiology Diagnoses LLQ abdominal pain RUQ abdominal pain Nausea Abnormal weight loss Procedures NM Gastric Emptying Garima Kelly CNP Phone: tel: fax: mailto:[email or web address] Referral ID Status Reason Start Date Expiration Date Visits Re quested Visits Authorized [id number] Closed 04/03/2021 11/08/2021 1 1 Encounter Details Date Type Department Care Team (Latest Contact Info) Description 04/17/2021 Transcribe Orders Virtual Department [address] [place] [address] Garima Kelly CNP [address] [place] [address] [email or web address] LLQ abdominal pain (Primary Dx); RUQ abdominal [...] diverticulosis without signs of diverticulitis. POS - [id number] Narrative 05/21/2021 3:08 PM EDT Oral and [...] sigmoid diverticulosis without signs ofdiverticulitis. POS - [id number] Garima Kelly [facility] IMG CT ABD/PELVIS Final Re sult * [...] gastric emptying at 4 hours. Garima Kelly [employer]PER[employer] IMG [place] ABDOMEN Final Resu lt documented [...] weight documented in this encounter Care Teams Screen Tender Relationship Specialty Start Date End Date Sandra House NP [address] [place] [address] [place] [address] PCP - General Family Medicine 04/17/21 documented as of this encounter Additional Source Comments The information contained in this document represents components of the legal health record. It is not the complete legal health record.[facility]
--- OUTSIDE RECORDS SUMMARY | 2025-06-06 18:32 | XMS_ITS | Clinical Summary ---
Author Organization [facility] Address [address] [place] [address] Phone Care Team Providers Care General Cargo Clerk Name Role Phone El Horner Primary Care Provider [phone] Allergies No known active allergies Medications aspirin [...] Encounters Date Type Department Care Team Description 04/30/2025 Telephone Adult Medicine [facility] [address] [place] [phone] El Horner PA from Last 3 Months Immunizations Immunization Administration Dates Next Due Influenza [...] Date Site/Laterality Comments CARPAL TUNNEL RELEASE PROCEDURE: [place] NEUROPLASTY &/TRANSPOS MEDIAN NRV CARPAL TUNNE; COMMENT: BILAT TOTAL KNEE ARTHROPLASTY PROCEDURE: HISTORICAL TOTAL KNEE REPLACE; COMMENT: LEFT 2002 ESOPHAGOGASTRODUODENOSCOPY 08/17/07 PROCEDURE: NV EGD TRANSORAL BIOPSY SINGLE/MULTIPLE; COMMENT: Normal esophagus, [...] Obesity, unspecified 08/03/2005 DX:Obesity, unspecified Other thalassemia (CMS/HCC V24) 08/03/2005 DX:Other thalassemia (HCC) Unspecified hypothyroidism 08/03/2005 DX:Un specified [...] attempted x 2 during 2014 at the [facility]. Suboptimal bowel prep both times. Consider Cologuard [...] RSV Immunization Adult Patients (1 - Risk 50-74 years 1-dose series) 10/31/2001 Falls Risk Assessment 06/23/2022 Medicare Annual Wellness Visit 06/23/2022 Social Influencers of Health Screening 06/23/2022 Depression Screening 07/25/2024 Hypertension/CHF/CAD Annual BMP Blood Test 01/19/2025 01/20/2024, 12/11/2021, 05/19/2021, Additional history exists COVID-19 Vaccine ( - season) 2025 06/27/2021, 11/13/2020, 10/16/2020 Influenza Vaccine [...] Results * Annual BMP Blood Test (12/11/2021) [facility] Annual BMP Blood Test abstracted [facility] Provider HEALTH MAINTENANCE Final Result * (ABNORMAL) Lipid panel (12/11/2021) [facility] LDL/HDL Ratio 3 0 - 4 Triglycerides 70 0 - 150 mg/dL Cholesterol 171 0 - 200 mg/dL HDL 53 >=40 mg/dL LDL Cholesterol 104(A) 0 - 100 mg/dL Blood Venous blood specimen / Unknown [facility] Provider LAB BLOOD ORDERABLES Mady l Result * Colonoscopy (09/08/2021) [facility] Colonoscopy no interpretation , abstracted Anatomical Region Laterality Modality Other [facility] Provider HEALTH MAINTENANCE Final Result * Hepatitis C Screening (09/24/2014) [facility] Hepatitis C Screening abstracted [facility] Provider HEALTH MAINTENANCE Final Result from Last 3 Months or Most Recently Relevant to Health Maintenance Insurance ADMINISTRATION MEDICARE Care Teams General Cargo Clerk Relationship Specialty Start Date End Date El Horner PA [address] [place] [address] PCP - General Internal Medicine 05/26/21
--- OUTSIDE RECORDS SUMMARY | 2025-06-06 18:32 | XMS_ITS | Encounter Summary ---
Author Organization [facility] Address [address] [place] [address] Phone Care Team Providers Care Civil Rights Attorney Name Role Phone Sandra House HAIR SPRING CUTTER Primary Care Provid er Encounter Details Date Type Department Care Team (Late st Contact Info) Description 11/14/2023 Procedure Pass [facility], Ct Scan - [address] [address] Social History Tobacco Use Types Packs/Day Years [...] on filedocumented in this encounter Care Teams Civil Rights Attorney Relationship Specialty Start Date End Date Sandra House NP [address] [place] [address] PCP - General Family Medicine 04/17/21 documented as of this encounter Additional Source Comments The information contained in this document represents components of the legal health record. It is not the complete legal health record.[facility]
--- OUTSIDE RECORDS SUMMARY | 2025-06-06 18:32 | XMS_ITS | Clinical Summary ---
Author Organization [facility] Address [address] [place] [address] Phone Care Team Providers Care Energy Economist Name Role Phone Sandra House NP Primary [...] (FISH OIL ORAL) Take by mouth. Active Encounters Date Type Department Care Team Description 05/23/2025 Telephone [facility] Gastroenterology Clinic [address] [place] [address] Matty Giordano MD Direct Colonoscopy from Last 3 Months Social History Tobacco Use Types Packs/Day Years [...] DEPRESSION SCREENING 1963 HEPATITIS C SCREENING 10/31/1969 PNEUMOCOCCAL VACCINES (50+ years) (1 of 2 - PCV) 10/31/1970 SMOKING STATUS SCREENING (On ce After 26 Yrs) 10/31/1977 COLOGUARD 10/31/1996 FIT TEST 10/31/1996 FOBT 10/31/1996 SIGMOIDOSCOPY 10/31/1996 VIRTUAL COLONOSCOPY 10/31/1996 INFLUENZA VACCINE (#1) 2025 COVID-19 VACCINE ( - 2024-2 6 season) 2025 RSV VACCINE (1 - 1-dose 75+ series) 10/31/2026 Adult Td,Tdap Booster 07/07/2027 07/07/2017 , 01/20/2009 COLONOSCOPY 06/23/2031 06/23/2021 COLORECTAL CANCER SCREENING 06/23/2031 ZOSTER VACCINES Completed 01/22/2020, 09/24/2019 HEPATITIS A VACCINES Aged Out No long er eligible based on patient's age to complete this topic HIB VACCINES Aged Out No longer eligi ble based on patient's age to complete this topic IPV VACCINES Aged Out No longer eligi ble based on patient's age to complete this topic MENINGOCOCCAL VACCINES (ACWY) Aged Out No longer eligible based on patient's age to complete this topic MENINGOCOCCAL VACCINES (B) Aged Out N o longer eligible based on patient's age to complete this topic Medical Devices Implanted Type Area Currency Exchange Specialist Device Identifier Shelf Expiration Date Model / [...] Patient Name: El Zapata Attending MD:: MATTY GIORDANO MD Procedure Date: 06/23/2021 11:56AM Date of : 1950 Age: 70 Admit Type: Outpatient Gender: Male Room: [place] [address] Referring MD: Sandra Fleming Exam Type: Colonoscopy [...] monitored continuously. The Olympus adult variable colonoscope [id number] #6was introduced through the anus and advanced [...] 11:56 AM Procedure Code(s): --- Professional --- 65409, Colonoscopy, flexible; with removal of tumor(s), polyp(s), or other lesion(s) by snare technique --- Technical --- 30992, Colonoscopy, flexible; with removal of tumor(s), polyp(s), [...] parts of digestive tract CPT copyright 2018 [employer]. All rights reserved. The codes documented in this report are preliminary and upon perforator operator reviewmay be revised to meet current compliance requirements. Procedure Date: 06/23/2021 11:56:19 AM [address] [place] [address] Sandra Lyon NP GI PROCEDURE ORDERAB LES Final Result from Last 3 Months or Most Recently Relevant to Health Maintenance Insurance * Guarantor: Jodi El Account Type Relation to Patient Date of Phone Billing Address Personal/Family Self 1950 [address] [place] [address] MEDICARE PART A & B [facility] Address: [facility] [address] [place] [address] * Guarantor: Jodi El Account Type Relation to Patient Date of Phone Billing Address Personal/Family Self 1950 [address] [place] [address] MEDICARE PART A & B [facility] * Guarantor: El Zapata Account Type Relation to Patient Date of Phone Billing Address Personal/Family Self 1950 [address] [place] [address] MEDICARE PART A & B [facility] MEDICARE PART A & B * Guarantor: El Zapata Account Type Relation to Patient Date of Phone Billing Address Personal/Family Self 1950 [address] [place] [address] MEDICARE PART A & B * Guarantor: El Zapata Account Type Relation to Patient Date of Phone Billing Address Personal/Family Self 1950 [address] [place] [address] MEDICARE PART A & B Member Subscriber Plan / Payer (Ef fective 2011-Present) Name:El Zapata Member ID:[id number] Relation to Subscriber:Self Name:El Zapata Subscriber ID:[id number] Payer ID:[id number] Group ID:Not on file Type:Medicare Address: [email or web address] [address] * Guarantor: Jodi El Account Type Relation to Patient Date of Phone Billing Address Personal/Family Self 1950 [address] [place] [address] MEDICARE PART A & B * Guarantor: Jodi El Account Type Relation to Patient Date of Phone Billing Address Personal/Family Self 1950 [address] [address] MEDICARE PART A & B * Guarantor: El Zapata Account Type Relation to Patient Date of Phone Billing Address Personal/Family Self 1950 [address] [place] [address] MEDICARE PART A & B Care Teams Energy Economist Relationship Specialty Start Date End Date Sandra House NP [address] [place] [address] PCP - General Family Medicine 04/17/21 Additional Source Comments The information contained in this document represents components of the legal health record. It is not the complete legal health record.[facility]
--- OUTSIDE RECORDS SUMMARY | 2025-06-06 18:33 | XMS_ITS | Encounter Summary ---
Author Organization [facility] Address [address] [facility] [address] [place] [address] Phone Care Team Providers Care Reading Specialist Name Role Phone Sandra House SWITCHBOARD OPERATOR ASSISTANT Primary Care Provid er Encounter Details Date Type Department Care Team (Late st Contact Info) Description 04/17/2021 Procedure Pass [facility], Ct Scan - [address] [address] Social History Tobacco Use Types Packs/Day Years [...] on filedocumented in this encounter Care Teams Reading Specialist Relationship Specialty Start Date End Date Sandra House NP [address] [place] [address] PCP - General Family Medicine 04/17/21 documented as of this encounter Additional Source Comments The information contained in this document represents components of the legal health record. It is not the complete legal health record.[facility]
== END 2025-06-06 16:11 | disposition home or self-care (01) ==
LOC: HO.PMC 15:33
PROVIDERS: PCP Hospitalist; Visit Provider Anesthesiology
DX: M43.10 Spondylolisthesis, site unspecified (principal); G89.4 Chronic pain syndrome; M51.369 Other intervertebral disc degeneration, lumbar region without mention of lumbar back pain or lower extremity pain; M50.30 Other cervical disc degeneration, unspecified cervical region; M47.16 Other spondylosis with myelopathy, lumbar region; M47.812 Spondylosis without myelopathy or radiculopathy, cervical region; M47.816 Spondylosis without myelopathy or radiculopathy, lumbar region
CPT/HCPCS: 99214

== ENCOUNTER → 2025-06-06 15:32 | Outpatient (BNVA) | payer OTHER, SELFPAY | PROVIDERS: PCP Hospitalist; Visit Provider Anesthesiology | DX: G89.4 Chronic pain syndrome (principal); M47.812 Spondylosis without myelopathy or radiculopathy, cervical region; M47.816 Spondylosis without myelopathy or radiculopathy, lumbar region; M50.30 Other cervical disc degeneration, unspecified cervical region | CPT/HCPCS: 99212 ==

== ENCOUNTER 2025-07-17 12:52 | Outpatient (AMB) | payer OTHER, SELFPAY ==
--- OUTSIDE RECORDS SUMMARY | 2025-07-17 12:54 | XMS_ITS | Clinical Summary ---
Author Organization [facility] Address [address] [place] [address] Phone Care Team Providers Care Manager Steel Name Role Phone El Horner Primary Care Provider [phone] Allergies No known active allergies Medications aspirin [...] Care Team Description 04/30/2025 Telephone Adult Medicine [facility] [address] [place] [phone] El Horner PA from Last 3 Months [...] Date Site/Laterality Comments CARPAL TUNNEL RELEASE PROCEDURE: [place] NEUROPLASTY &/TRANSPOS MEDIAN NRV CARPAL TUNNE; COMMENT: BILAT TOTAL KNEE ARTHROPLASTY PROCEDURE: HISTORICAL TOTAL KNEE REPLACE; COMMENT: LEFT 2002 ESOPHAGOGASTRODUODENOSCOPY 08/17/07 PROCEDURE: ND EGD TRANSORAL BIOPSY SINGLE/MULTIPLE; COMMENT: Normal esophagus, [...] attempted x 2 during 2014 at the [facility]. Suboptimal bowel prep both times. Consider [...] 12/11/2021, 05/19/2021, Additional history exists COVID-19 Vaccine (4 - season) 2025 06/27/2021, 11/13/2020, 10/16/2020 Influenza [...] Procedure Name Priority Date/Time Associated Diagnosis Comments HM ANNUAL BMP BLOOD TEST Routine 12/11/2021 LIPID PANEL Routine 12/11/2021 COLONOSCOPY Routine 09/08/2021 HEPATITIS C SCREENING Routine 09/24/2014 from Last 3 Months or Most Recently Relevant to Health Maintenance Results * Annual BMP Blood Test (12/11/2021) [facility] Annual BMP Blood Test abstracted [facility] Provider HEALTH MAINTENANCE Final Result * (ABNORMAL) Lipid panel (12/11/2021) [facility] LDL/HDL Ratio 3 0 - 4 Triglycerides 70 0 - 150 mg/dL Cholesterol 171 0 - 200 mg/dL HDL 53 >=40 mg/dL LDL Cholesterol 104(A) 0 - 100 mg/dL Blood Venous blood specimen / Unknown [facility] Provider LAB BLOOD ORDERABLES Mady l Result * Colonoscopy (09/08/2021) [facility] Colonoscopy no interpretation , abstracted Anatomical Region Laterality Modality Other [facility] Provider HEALTH MAINTENANCE Final Result * Hepatitis C Screening (09/24/2014) [facility] Hepatitis C Screening abstracted [facility] Provider HEALTH MAINTENANCE Final Result from Last 3 Months or Most Recently Relevant to Health Maintenance Insurance ADMINISTRATION MEDICARE Care Teams Manager Steel Relationship Specialty Start Date End Date El Horner PA [address] [place] [address] PCP - General Internal Medicine 05/26/21
--- OUTSIDE RECORDS SUMMARY | 2025-07-17 12:54 | XMS_ITS | Encounter Summary ---
Author Organization [facility] Address [address] [place] [address] Phone Care Team Providers Care Gallery Director Name Role Phone Sandra House NP Primary Care Provid er Reason for Referral * MRI/CAT Scan - Closed Specialty Diagnoses / Procedures Referred By Contac t Referred To Contact Radiology Diagnoses Diarrhea, unspecified type Nausea Abnormal weight loss Procedures CT Abdomen/Pelvis Mary Dodd PA-C Phone: tel: fax: mailto:[email or web address] Referral ID Status Reason Start Date Expiration Date Visits Re quested Visits Authorized [id number] Closed 11/14/2023 11/13/2024 1 1 Encounter Details Date Type Department Care Team (Latest Contact Info) Description 11/14/2023 Transcribe Orders Virtual Department [address] [place] [address] Mary Dodd PA-C [address] [place] [address] [email or web address] Diarrhea, unspecified type (Primary Dx); Nausea; Abnormal [...] identified in the abdomen/pelvis. Mary Dodd PA-C [facility] CT ABD/PELVIS Final Result documented in this encounter Visit Diagnoses Diagnosis Diarrhea, unspecified type- Primary Nausea Nausea alone Abnormal weight loss Loss of weight Diarrhea, unspecified type Nausea Nausea alone Abnormal weight loss Loss of weight documented in this encounter Care Teams Gallery Director Relationship Specialty Start Date End Date Sandra House NP [address] [place] [address] PCP - General Family Medicine 04/17/21 documented as of this encounter Additional Source Comments The information contained in this document represents components of the legal health record. It is not the complete legal health record.[facility]
--- OUTSIDE RECORDS SUMMARY | 2025-07-17 12:54 | XMS_ITS | Encounter Summary ---
Author Organization [facility] Address [address] [place] [address] Phone Care Team Providers Care Drilling Field Specialist Name Role Phone Sandra House SWAMPER Primary Care Provid er Encounter Details Date Type Department Care Team (Late st Contact Info) Description 11/14/2023 Procedure Pass [facility], Ct Scan - [address] [address] Social History Tobacco Use Types Packs/Day Years [...] on filedocumented in this encounter Care Teams Drilling Field Specialist Relationship Specialty Start Date End Date Sandra House NP [address] [place] [address] PCP - General Family Medicine 04/17/21 documented as of this encounter Additional Source Comments The information contained in this document represents components of the legal health record. It is not the complete legal health record.[facility]
--- OUTSIDE RECORDS SUMMARY | 2025-07-17 12:54 | XMS_ITS | Encounter Summary ---
Author Organization [facility] Address [address] [place] [address] [place] [address] Phone Care Team Providers Care Commissioning Agent Name Role Phone Sandra House NP Primary Care Provid er Encounter Details Date Type Department Care Team (Late st Contact Info) Description 06/23/2021 Procedure Pass [facility] Endoscopy Admitting Dept Virtual Department [address] [place] [address] Social History Tobacco Use Types Packs/Day Years [...] on filedocumented in this encounter Care Teams Commissioning Agent Relationship Specialty Start Date End Date Sandra House NP [address] [place] [address] [address] [place] [address] PCP - General Family Medicine 04/17/21 documented as of this encounter Additional Source Comments The information contained in this document represents components of the legal health record. It is not the complete legal health record.[facility]
--- OUTSIDE RECORDS SUMMARY | 2025-07-17 12:54 | XMS_ITS | Encounter Summary ---
Author Organization [facility] Address [address] [place] [address] Phone Care Team Providers Care Grain Sampler Name Role Phone Sandra House NP Primary Care Provid er Reason for Visit * Reason Onset Date Comments Direct Colonoscopy 05/23/2025 Encounter Details Date Type Department Care Team ([facility] st Contact Info) Description 05/23/2025 Telephone [facility] Gastroenterology Clinic [address] [place] [address] Matty Sherman MD [address] [address] [email or web address] Direct Colonoscopy Social History Tobacco Use Types [...] as of this encounter Progress Notes * Robert Park - 07/02/2025 2:40 PM EST [facility]. Please contact patient to schedule. * Tiesha Gonzalez - 05/24/2025 3:11 PM [...] on filedocumented in this encounter Care Teams Grain Sampler Relationship Specialty Start Date End Date Sandra House NP [address] [place] [address] PCP - General Family Medicine 04/17/21 documented as of this encounter Additional Source Comments The information contained in this document represents components of the legal health record. It is not the complete legal health record.[facility]
--- OUTSIDE RECORDS SUMMARY | 2025-07-17 12:54 | XMS_ITS | Encounter Summary ---
Author Organization [facility] Address [address] [place] [address] Phone Care Team Providers Care Handmade Tile Artist Name Role Phone Sandra House NP Primary Care Provid er Reason for Referral * Outpatient Procedure - Closed Specialty Diagnoses / Procedures Referred By Contdanya t Referred To Contact Radiology Diagnoses Dysphagia, unspecified type Nausea Procedures NM Gastric Emptying Garima Kelly CNP Phone: tel: fax: mailto:[email or web address] Referral ID Status Reason Start Date Expiration Date Visits Re quested Visits Authorized [id number] Closed 01/20/2024 01/19/2025 1 1 Encounter Details Date Type Department Care Team (Latest Contact Info) Description 01/20/2024 Transcribe Orders Virtual Department [address] [place] [address] Garima Kelly CNP [address] [place] [address] [email or web address] Dysphagia, unspecified type (Primary Dx); Nausea Social [...] SOLID PHASE Radionuclide gastric emptying scan: COMPARISON: RI GASTRIC EMPTYING SOLID PHASE TECHNIQUE: A dose [...] or greater of the standard meal (PMID: [id number]) and approximate the normative emptying values of [employer] (PMID: [id number]). Procedure Note Eros Duvall MD - 02/09/2024 RI GASTRIC EMPTYING SOLID PHASE Radionuclide gastric emptying scan: COMPARISON: RI GASTRIC EMPTYING SOLID PHASE TECHNIQUE: A dose [...] 50% or greater of the standard meal(PMID: [id number]) and approximate the normative emptying values of[facility] (PMID: [id number]). IMPRESSION: Gastric emptying study within normal limits. The previous study from05/07/2021 reported delayed gastric emptying. ATTESTATION: I, Dr. Eros Duvall as teaching physician, have reviewedthe images for this case and if necessary edited the report originallycreated by Richard Reyes. Garima Kelly [employer] IMG RI ABDOMEN Final Resu lt documented in this encounter Visit Diagnoses Diagnosis Dysphagia, unspecified type- Primary Nausea Nausea alone Dysphagia, unspecified type Nausea Nausea alone documented in this encounter Care Teams Handmade Tile Artist Relationship Specialty Start Date End Date Sandra House NP [address] [facility] [address] [place] [address] PCP - General Family Medicine 04/17/21 documented as of this encounter Additional Source Comments The information contained in this document represents components of the legal health record. It is not the complete legal health record.[facility]
--- OUTSIDE RECORDS SUMMARY | 2025-07-17 12:54 | XMS_ITS | Encounter Summary ---
Author Organization [facility] Address [address] [place] [address] Phone Care Team Providers Care Loan Funder Name Role Phone Sandra House NP Primary [...] CONTRAST Garima Kelly CNP Phone: tel: fax: mailto:[email or web address] Referral ID Status Reason Start Date Expiration Date Visits Re quested Visits Authorized [id number] Closed 04/17/2021 11/08/2021 1 1 * Hospital - Outpatient - Closed Specialty Diagnoses / Procedures Referred By Contac t Referred To Contact Radiology Diagnoses LLQ abdominal pain RUQ abdominal pain Nausea Abnormal weight loss Procedures NM Gastric Emptying Garima Kelly CNP Phone: tel: fax: mailto: Referral ID Status Reason Start Date Expiration Date Visits Re quested Visits Authorized [id number] Closed 04/03/2021 11/08/2021 1 1 Encounter Details Date Type Department Care Team (Latest Contact Info) Description 04/17/2021 Transcribe Orders Virtual Department [address] [place] [address] Garima Kelly CNP [address] [place] [address] [email or web address] LLQ abdominal pain (Primary Dx); RUQ abdominal [...] diverticulosis without signs of diverticulitis. POS - [id number] Narrative 05/21/2021 3:08 PM EDT Oral and [...] sigmoid diverticulosis without signs ofdiverticulitis. POS - [id number] Garima Kelly [facility] IMG CT ABD/PELVIS Final Re sult [...] gastric emptying at 4 hours. Garima Kelly HEALTHCARE RISK CONTROL CONSULTANT IMG NM ABDOMEN Final Resu lt documented [...] weight documented in this encounter Care Teams Loan Funder Relationship Specialty Start Date End Date Sandra House NP [address] [place] [address] PCP - General Family Medicine 04/17/21 documented as of this encounter Additional Source Comments The information contained in this document represents components of the legal health record. It is not the complete legal health record.[facility]
--- OUTSIDE RECORDS SUMMARY | 2025-07-17 12:55 | XMS_ITS | Clinical Summary ---
Author Organization [facility] Address [address] [place] [address] Phone Care Team Providers Care Talent Specialist Name Role Phone Sandra House NP Primary [...] Type Department Care Team Description 05/23/[address] [facility] [address] [place] [id number] Matty Giordano MD Direct Colonoscopy from Last [...] 10/31/2001 INFLUENZA VACCINE (#1) 2025 COVID-19 VACCINE ( [...] this topic Medical Devices Implanted Type Area Grounds Maintenance Worker Device Identifier Shelf Expiration Date Model / Serial / Lot Bilat Hip Hardware Procedures Procedure Name Priority Date/Time Associated Diagnosis Comments ENDOSCOPY, COLON 06/23/2021 11:5 6 AM EST from Last 3 Months or Most Recently Relevant to Health Maintenance Results * ENDOSCOPY, COLON (06/23/2021 11:56 AM EST) Narrative Transcriptions Matty Giordano MD - 06/23/2021 11:56 AM EST Patient Name: lE Zapata Attending MD:: MATTY GIORDANO MD Procedure Date: 06/23/2021 11:56AM Date of : 1950 Age: 70 Admit Type: Outpatient Gender: Male Room: [place] [address] Referring MD: Sandra Fleming Exam Type: Colonoscopy [...] monitored continuously. The Olympus adult variable colonoscope [id number] #6was introduced through the anus and advanced [...] 11:56 AM Procedure Code(s): --- Professional --- 40640, Colonoscopy, flexible; with removal of tumor(s), polyp(s), or other lesion(s) by snare technique --- Technical --- 94380, Colonoscopy, flexible; with removal of tumor(s), polyp(s), [...] parts of digestive tract CPT copyright 2018 [employer]. All rights reserved. The codes documented in this report are preliminary and upon supervisory examiner reviewmay be revised to meet current compliance requirements. Procedure Date: 06/23/2021 11:56:19 AM [address] [place] [address] Sandra Lyon NP GI PROCEDURE ORDERAB LES Final Result from Last 3 Months or Most Recently Relevant to Health Maintenance Insurance * Guarantor: Vimaljessica El Account Type Relation to Patient Date of Phone Billing Address Personal/Family Self 1950 [address] [place] [address] MEDICARE PART A & B [facility] Address: [facility] [id number] [place] [address] * Guarantor: Jodi El Account Type Relation to Patient Date of Phone Billing Address Personal/Family Self 1950 [address] [place] [address] MEDICARE PART A & [place] [address] MEDICARE PART A & B MEDICARE PART A & B * Guarantor: El Zapata Account Type Relation to Patient Date of Phone Billing Address Personal/Family Self 1950 [address] [place] [address] MEDICARE PART A & B MEDICARE PART A & B * Guarantor: El Zapata Account Type Relation to Patient Date of Phone Billing Address Personal/Family Self 1950 [address] [place] [address] MEDICARE PART A & B * Guarantor: El Zapata Account Type Relation to Patient Date of Phone Billing Address Personal/Family Self 1950 [address] [place] [place] [address] MEDICARE PART A & B [facility] * Guarantor: JodiEl Account Type Relation to Patient Date of Phone Billing Address Personal/Family Self 1950 [address] [place] [address] MEDICARE PART A & B [facility] Care Teams Talent Specialist Relationship Specialty Start Date End Date Sandra House NP [address] [facility] [address] [place] [address] PCP - General Family Medicine 04/17/21 Additional Source Comments The information contained in this document represents components of the legal health record. It is not the complete legal health record.[facility]
--- OUTSIDE RECORDS SUMMARY | 2025-07-17 12:55 | XMS_ITS | Encounter Summary ---
Author Organization [facility] Address [address] [facility] [address] [place] [address] Phone Care Team Providers Care Adjudication Specialist Name Role Phone Sandra House LADLE REPAIRMAN Primary Care Provid er Encounter Details Date Type Department Care Team (Late st Contact Info) Description 04/17/2021 Procedure Pass [facility] Scan - [address] [address] Social History Tobacco Use Types Packs/Day Years [...] on filedocumented in this encounter Care Teams Adjudication Specialist Relationship Specialty Start Date End Date Sandra House NP [address] [place] [id number] PCP - General Family Medicine 04/17/21 documented as of this encounter Additional Source Comments The information contained in this document represents components of the legal health record. It is not the complete legal health record.[facility]
[2025-07-17 13:17] VITALS: BP 166/77; PULSE 80; RESP 16; O2SAT 94; BMI 32.2
--- NOTE | 2025-07-17 13:17 | MHC.OFFVIS ---
Vital Signs 07/17/25 13:17 Height 5 ft 8 in Weight 212 lb BMI 32.2 BP 166/77 H Blood Pressure Location Rt brachial Position Sitting Respiration 16 Pulse 80 Pulse Source Pulse Oximeter Pulse Oximetry (%) 94 Oxygen Delivery Method Room Air Intake Visit Reasons: ITDD Refill Commissioned Sales Associate Required: No Accompanied by: Self / Same As Patient Allergies No Known Allergies Allergy (Verified 07/17/25 13:18) HPI Comments Details: El is in my office for the follow-up and pain pump refill. The pump refills he is below. The new concentration of the baclofen was introduced today instead of 400 micrograms/mL he will be getting 600 micrograms/mL of baclofen. Bridge bolus was introduced 1st of 46 days. Side effects of baclofen were discussed with the patient. Next appointment will be in 86 days. Prior: The patient conveyed to me opinion of the doctor. The neurosurgery on the patient's spine is not indicated. He was told ?that my back as full of arthritis ?. He also was told that some back injections could help his pain. I explained to the patient that I could possibly attempts the injections while the pump is in place however the patient needs to understand that I need to successfully aspirate the CSF from the side port of the pump and then fill up the catheter through the side port with Isovue intrathecal contrast to see the catheter and not to injured during the injection. My failure to fill up the catheter with intrathecal contrast may result in intrathecal catheter damage. Also we discussed whether or not this injection will be helping his pain. He has postlaminectomy syndrome and in the past he had hardware implanted and after that removed from his lower back. Therefore anatomical position of the patient's medial branches maybe grossly distorted. Possibility exists to aim to the facet joints themselves inject them with the steroids and this will possibly result with at least some pain alleviation. However I can not guarantee that either of the attempts would be successful to treat his pain. Patient wants me to review the MRI. We will wait until his neurosurgeon's office will send us MRI I will evaluate this MRI and make my decision during his next pump refill in June. He is currently receiving Dilaudid bupivacaine and baclofen in his pump. [facility] Medical History Obesity PTSD (post-traumatic stress disorder) GERD (gastroesophageal reflux disease) Hypercholesteremia Hypothyroid Retrolisthesis of vertebrae Spondylosis, lumbar, with myelopathy Degeneration, intervertebral disc, cervical Disc degeneration, lumbar Chronic pain syndrome Surgical History S/P insertion of spinal cord stimulator History of total left knee replacement Social History Patient Tobacco Use Status: Never used Tobacco Review of Systems Const All systems reviewed & are unremarkable except as noted in HPI and below Physical Exam Vital Signs: Last Vital Signs Pulse 80 07/17/25 13:17 Resp 16 07/17/25 13:17 BP 166/77 H 07/17/25 13:17 Pulse Ox 94 07/17/25 13:17 Oxygen Delivery Method Room Air 07/17/25 13:17 BMI result Body Mass Index 32.2 Last Vital Signs Pulse 74 06/30/23 17:30 Resp 16 06/30/23 17:30 BP 137/42 L 06/30/23 17:30 Pulse Ox 99 06/30/23 17:30 O2 Del Method Room Air 06/30/23 17:30 BMI result Body Mass Index 27.9 Const General: cooperative, comfortable, no acute distress and alert Orientation/consciousness: oriented to person, oriented to place, oriented to time and patient oriented x3 Chest Other: Very limited range of motion of the cervical spine. Tenderness on palpation in projection of the almost entire cervical spine. No pain radiation into bilateral upper extremities. Valsalva maneuver aggravates the patient's pain minimally. Resp Effort & Inspection: normal respiratory effort, able to speak in complete sentences, normal respiratory pattern, no audible wheezes, no cough and respiratory effort not decreased Cardio Jugular venous distension: no JVD Back/Spine/Pelvis Thoracic/Lumbar Spine: paraspinal muscle tenderness, thoracic spinal tenderness and lumbar spinal tenderness Neuro General: oriented to person, oriented to place, oriented to time and patient oriented x3 Assessment & Plan Assessment & Plan (1) Retrolisthesis of vertebrae: Code(s): M43.10 - Spondylolisthesis, site unspecified Category: Medical (2) Chronic pain syndrome: Code(s): G89.4 - Chronic pain syndrome Category: Medical (3) Disc degeneration, lumbar: Code(s): M51.36 - Other intervertebral disc degeneration, lumbar region Category: Medical (4) Degeneration, intervertebral disc, cervical: Code(s): M50.30 - Other cervical disc degeneration, unspecified cervical region Category: Medical (5) Spondylosis, lumbar, with myelopathy: Code(s): M47.16 - Other spondylosis with myelopathy, lumbar region Category: Medical Plan: The pump refill see as below. (6) Spondylosis of cervical joint without myelopathy: Code(s): M47.812 - Spondylosis without myelopathy or radiculopathy, cervical region Category: Medical (7) Spondylosis of lumbar region without myelopathy or radiculopathy: Code(s): M47.816 - Spondylosis without myelopathy or radiculopathy, lumbar region Category: Medical Plan Intrathecal pump refill. ? THE PATIENT CAME TODAY IN office FOR THE CHANGE OF THE MEDICATION IN his PAIN PUMP. The name and date of were verified and informed consent was obtained for the procedure. ? ?The pump was interrogated and the residual amount of fluid was found to be 2.1 mL. HE WAS POSITIONED prone on the bed AND THE AREA OF THE INTRATHECAL PUMP WAS PREPPED WITH CHLORAPREP. The fenestrated drape was sterilely applied over the area of the pump. Sterile gloves were worn and of the aspiration system was assembled containing 2 in 22 gauge noncoring needle, the needle was connected to extension tubing which was connected to the 20 cc sterile syringe. The pain pump was palpated under the skin in the patient's right buttock area. The needle was inserted through the skin and the central plug of the pain pump and fluid was aspirated. The clear fluid was going into the syringe the total amount of the fluid was 3.8 mL .. After that a new batch? of medication was obtained which was containing new concentration of Dilaudid Dilaudid 2000 micro g , concentration of Bupivacain 23 mg per ml and baclofen 600 micro g per mL. The admixture was made in 20 cc syringe prepared by [facility] compounding pharmacy. The syringe was connected to the bacterial filter, and then connected to the extension tubing. After that the medication in the syringe was slowly instilled into the pump with aspirations at 15 and 5 cc gibbs.? The pump continuous infusion was established as 425 mcg a day with corresponding doses of 4.831 mg of bupivacain and 125 mcg of baclifen. This doses he will start to receive in 46 hours. Coding Level of Care Code Est Pt Level 3 (60269) Procedure Only Diagnoses Retrolisthesis of vertebrae M43.10 Chronic pain syndrome G89.4 Disc degeneration, lumbar M51.36 Degeneration, intervertebral disc, cervical M50.30 Spondylosis, lumbar, with myelopathy M47.16 Spondylosis of cervical joint without myelopathy M47.812 Spondylosis of lumbar region without myelopathy or radiculopathy M47.816
== END 2025-07-17 13:24 | disposition home or self-care (01) ==
LOC: HO.PMC 12:53
PROVIDERS: PCP Hospitalist; Referring Provider Anesthesiology; Visit Provider Anesthesiology
DX: M43.10 Spondylolisthesis, site unspecified (principal); G89.4 Chronic pain syndrome; M51.369 Other intervertebral disc degeneration, lumbar region without mention of lumbar back pain or lower extremity pain; M50.30 Other cervical disc degeneration, unspecified cervical region; M47.16 Other spondylosis with myelopathy, lumbar region; M47.812 Spondylosis without myelopathy or radiculopathy, cervical region; M47.816 Spondylosis without myelopathy or radiculopathy, lumbar region; Z45.1 Encounter for adjustment and management of infusion pump
CPT/HCPCS: 95991

== ENCOUNTER → 2025-07-17 12:52 | Outpatient (BNVA) | payer OTHER, SELFPAY | PROVIDERS: PCP Hospitalist; Visit Provider Anesthesiology | DX: M43.10 Spondylolisthesis, site unspecified (principal); G89.4 Chronic pain syndrome; M51.360 Other intervertebral disc degeneration, lumbar region with discogenic back pain only; M50.30 Other cervical disc degeneration, unspecified cervical region; M47.812 Spondylosis without myelopathy or radiculopathy, cervical region; M47.816 Spondylosis without myelopathy or radiculopathy, lumbar region; Z45.1 Encounter for adjustment and management of infusion pump; F45.42 Pain disorder with related psychological factors | CPT/HCPCS: 95991 ==